=== PATIENT | male | born 1950 | race African-American/Black ===

== ENCOUNTER 2018-05-13 19:46 | Emergency (ER) | payer OTHER ==
--- NOTE | 2018-05-13 19:53 | PDOC ---
Rapid Medical Evaluation Time Seen by Provider: 05/13/18 19:51 Medical Evaluation: Allergies Allergy/AdvReac Type Severity Reaction Status Date / Time enalapril Allergy Verified 05/12/18 13:51 lisinopril Allergy Verified 05/12/18 13:51 05/13/18 19:52 I have performed a brief in-person evaluation of this patient. The patient presents with a chief complaint of: generalized weakness with diarrhea Pertinent physical exam findings: Normoactive BS. Abd SNTND. I have ordered the following: nothing The patient will proceed to the ED for further evaluation. Discharge Disposition - Diagnosis Diarrhea - Referrals - Patient Instructions - Post Discharge Activity
[2018-05-13 19:57] VITALS: BP 158/85; PULSE 72; TEMP 98.9; BMI 20.9
[2018-05-13] MEDS ORDERED: ALBUTEROL SO4 2.5/IPRATROPIUM 0.5 INH SOL 3 ML VIAL.NEB. NEB ONE (20:37)
--- NOTE | 2018-05-13 20:54 | PDOC ---
Attending Attestation - Resident Resident Name: Jim Brewer - ED Attending Attestation I have performed the following: I have examined & evaluated the patient, The case was reviewed & discussed with the resident, I agree w/resident's findings & plan, Exceptions are as noted - HPI HPI: 05/13/18 20:42 Pt c/o SOB. Seen yesterday for same. Had extensive work up and was discharged. Pt presented due to SOB because or the hot air. States now he feels better. - Physicial Exam PE: 05/13/18 20:44 *Physical Exam General Appearance: Yes: Appropriately Dressed. No: Apparent Distress, Intoxicated HEENT: positive: EOMI, MARY, Normal ENT Inspection, Normal Voice, TMs Normal, Pharynx Normal. negative: Pale Conjunctivae, Photophobia, Scleral Icterus (R), Scleral Icterus (L) Neck: positive: Trachea midline, Normal Thyroid, Supple. negative: Tender, Rigid, Carotid bruit, Stridor, Lymphadenopathy (R), Lymphadenopathy (L), Thyromegaly Respiratory/Chest: positive: scattered wheezing . negative: Chest Tender, Respiratory Distress, Accessory Muscle Use, Labored Respiration, RES, Crackles, Rales, Rhonchi, Stridor, Wheezing, Dullness Cardiovascular: positive: Regular Rhythm, Regular Rate, S1, S2. negative: Edema , JVD, Murmur, Bradycardia, Tachycardia Vascular Pulses: Dorsalis-Pedis (R): 2+, Doralis-Pedis (L): 2+ Gastrointestinal/Abdominal: positive: Normal Bowel Sounds, Flat, Soft. negative : Tender, Organomegaly, Pulsatile Mass, Increased Bowel Sounds, Decreased BS, Distended, Guarding, Rebound, Hernia, Hepatomegaly, Spleenomegaly Lymphatic: negative: Adenopathy, Tenderness Musculoskeletal: positive: Normal Inspection. negative: CVA Tenderness, Decreased Range of Motion Extremity: positive: Normal Capillary Refill, Normal Inspection, Normal Range of Motion, Pelvis Stable. negative: Tender, Pedal Edema, Swelling, Erythema Integumentary: positive: Normal Color, Dry, Warm. negative: Cyanotic, Erythema , Jaundice, Rash Neurologic: positive: section leader II-XII NML intact, Fully Oriented, Alert, Normal Mood/ Affect, Motor Strength 5/5. negative: EOM Palsy, Facial Droop, Sensory Deficit - Medical Decision Making 05/13/18 20:58 Pt was treated and released.
--- NOTE | 2018-05-13 21:04 | PDOC ---
History of Present Illness - General Chief Complaint: Diarrhea Stated Complaint: DIARRHEA Time Seen by Provider: 05/13/18 19:51 History Source: Patient Exam Limitations: No Limitations - History of Present Illness Initial Comments: 05/13/18 21:04 Patient is 68M with history of HLD and HTN here today complaining of shortness of breath that started when he walked outside this morning. He was seen in the ED yesterday, where he was evaluated with labs, cxr, and CTA. Labs were normal with the exception of a d-dimer. CTA showed no PE and no infiltrate. Patient states that his symptoms resolved immediately after he got into the "cool air". Denies chest pain, fever, chills, nausea, vomiting, cough. Patient denies leg swelling and history of blood clots. Patient is asking to go home. Denies having diarrhea. Past History - Past Medical History Allergies/Adverse Reactions: Allergies Allergy/AdvReac Type Severity Reaction Status Date / Time enalapril Allergy Verified 05/13/18 19:52 lisinopril Allergy Verified 05/13/18 19:52 Home Medications: Ambulatory Orders Albuterol Sulfate Inhaler - [Ventolin HFA Inhaler -] 1 puff IH Q6H PRN #1 inhaler 05/12/18 Ranitidine [Zantac -] 150 mg PO DAILY 30 Days #30 tablet 05/12/18 CVA: No COPD: No Dementia: No HTN: Yes Hypercholesterolemia: Yes - Immunization History Immunization Up to Date: Yes - Suicide/Smoking/Psychosocial Hx Smoking History: Current every day smoker Number of Cigarettes Smoked Daily: 5 Information on smoking cessation initiated: No 'Breaking Loose' booklet given: 05/12/18 Hx Alcohol Use: Yes (DAILY) Substance Use Type: None Review of Systems - Review of Systems Comments:: 05/13/18 21:06 GENERAL/CONSTITUTIONAL: No fever or chills. No weakness. HEAD, EYES, EARS, NOSE AND THROAT: No change in vision. No ear pain or discharge. No sore throat. CARDIOVASCULAR: No chest pain +shortness of breath RESPIRATORY: No cough, wheezing, or hemoptysis. GASTROINTESTINAL: No nausea, vomiting, diarrhea or constipation. GENITOURINARY: No dysuria, frequency, or change in urination. MUSCULOSKELETAL: No joint or muscle swelling or pain. No neck or back pain. SKIN: No rash NEUROLOGIC: No headache, vertigo, loss of consciousness, or change in strength/ sensation. ENDOCRINE: No increased thirst. No abnormal weight change HEMATOLOGIC/LYMPHATIC: No anemia, easy bleeding, or history of blood clots. ALLERGIC/IMMUNOLOGIC: No hives or skin allergy. *Physical Exam - Vital Signs Last Vital Signs Temp Pulse Resp BP Pulse Ox 98.9 F 72 16 158/85 97 05/13/18 19:53 05/13/18 19:53 05/13/18 19:53 05/13/18 19:53 05/13/18 19:53 - Physical Exam Comments: 05/13/18 21:06 GENERAL: Awake, alert, and fully oriented, in no acute distress HEAD: No signs of trauma, normocephalic, atraumatic EYES: PERRLA, EOMI, sclera anicteric, conjunctiva clear ENT: Auricles normal inspection, hearing grossly normal, nares patent, oropharynx clear without exudates. Moist mucosa NECK: Normal ROM, supple, no lymphadenopathy, JVD, or masses LUNGS: No distress, speaks full sentences, clear to auscultation bilaterally HEART: Regular rate and rhythm, normal S1 and S2, no murmurs, rubs or gallops, peripheral pulses normal and equal bilaterally. ABDOMEN: Soft, nontender, normoactive bowel sounds. No guarding, no rebound. No masses EXTREMITIES: Normal inspection, Normal range of motion, no edema. No clubbing or cyanosis. NEUROLOGICAL: Cranial nerves II through XII grossly intact. Normal speech, normal gait, no focal sensorimotor deficits SKIN: Warm, Dry, normal turgor, no rashes or lesions noted. Medical Decision Making - Medical Decision Making 05/13/18 21:06 Patient is 68M here today complaining of shortness of breath. Vital signs normal and stable. Patient's exam normal. Patient stating that he does not want to stay for further evaluation. Full medical workup 24 hours ago normal. Patient states that he has albuterol inhaler. Given return precautions. Discharged home. *DC/Admit/Observation/Transfer Diagnosis at time of Disposition: Shortness of breath - Discharge Dispostion Disposition: HOME Condition at time of disposition: Good Decision to Admit order: No - Referrals Referrals: [facility] [Provider Group] - Patient Instructions Printed Discharge Instructions: DI for Shortness of Breath Additional Instructions: Please return if you have any new, worsening or concerning symptoms. Please follow up with your primary care physician this week. - Post Discharge Activity
== END 2018-05-13 21:13 | disposition home or self-care (01) ==
LOC: JER 19:46
DX: R06.02 Shortness of breath (principal); I10 Essential (primary) hypertension; E78.5 Hyperlipidemia, unspecified; F17.210 Nicotine dependence, cigarettes, uncomplicated
CPT/HCPCS: 99281-25; 99282-25

== ENCOUNTER 2018-06-29 01:47 | Emergency (ER) | payer OTHER ==
[2018-06-29 02:05] VITALS: BMI 20.7
--- NOTE | 2018-06-29 03:54 | PDOC ---
History of Present Illness <Bogdan Robert - Last Filed: 06/29/18 05:46> - General History Source: Patient Exam Limitations: No Limitations - History of Present Illness Initial Comments: 06/29/18 03:48 This is a 68 YOM with h/o COPD (has rescue albuterol MDI he rarely uses), A-fib (on Eliquis and Cardizem), HTN, alcohol use (states 2 oz liquor every night to help him sleep), and asthma (in childhood) who p/w worsening intermittent generalized weakness, varying day-to-day, for the past few months. He additionally notes SOB which is worse than his normal baseline, worse with any exertion. He notes needing to take a taxi up the hill to his house instead of walking. He is followed by his PCP and had a recent visit. He has a follow-up visit on 07/16 but is concerned because he has run out of some home medications. He notes hot flashes and difficulty regulating his body temperature (he tends to run hot and needs to aim a fan at his face to cool off) . He otherwise denies f/c/n/v/d/c, chest pain, abdominal pain, n/t, headache, dizziness, lightheadedness, and other symptoms. <ShahrzadZina - Last Filed: 06/29/18 05:58> - General Chief Complaint: Weakness Stated Complaint: GENERALIZED WEAKNESS Time Seen by Provider: 06/29/18 03:29 Past History <Bogdan Robert - Last Filed: 06/29/18 05:46> - Past Medical History CVA: No COPD: No Dementia: No HTN: Yes Hypercholesterolemia: Yes - Immunization History Immunization Up to Date: Yes - Suicide/Smoking/Psychosocial Hx Smoking History: Unknown if ever smoked Have you smoked in the past 12 months: No Number of Cigarettes Smoked Daily: 4 Information on smoking cessation initiated: No 'Breaking Loose' booklet given: 05/12/18 Hx Alcohol Use: No Drug/Substance Use Hx: No Substance Use Type: Alcohol Hx Substance Use Treatment: No <MarkhamZina - Last Filed: 06/29/18 05:58> - Past Medical History Allergies/Adverse Reactions: Allergies Allergy/AdvReac Type Severity Reaction Status Date / Time enalapril Allergy Verified 06/29/18 02:04 lisinopril Allergy Verified 06/29/18 02:04 Home Medications: Ambulatory Orders Albuterol Sulfate Inhaler - [Ventolin HFA Inhaler -] 1 puff QID 05/28/18 Ranitidine [Zantac -] 150 mg PO DAILY 05/28/18 Vitamin B-12 1,000 mg PO DAILY 05/28/18 Apixaban [Eliquis -] 5 mg PO BID #60 tablet 06/29/18 Diltiazem Cd [Cardizem Cd -] 240 mg PO DAILY #30 cap.cd.24h 06/29/18 Review of Systems - Review of Systems Able to Perform ROS?: Yes Constitutional: Yes: Weakness, Other (hot flashes). No: Chills, Fever, Loss of Appetite, Malaise, Night Sweats, Unexplained wgt Loss HEENTM: No: Nose Congestion, Throat Pain Respiratory: Yes: Shortness of Breath. No: Cough Cardiac (ROS): No: Chest Pain, Palpitations ABD/GI: No: Constipated, Diarrhea, Nausea, Vomiting : No: Burning, Dysuria Musculoskeletal: No: Back Pain, Neck Pain Integumentary: No: Bruising, Rash Neurological: No: Headache, Numbness, Tingling, Weakness, Dizziness Endocrine: No: Unexplained Weight Gain, Unexplained Weight Loss <Zina Markham - Last Filed: 06/29/18 05:58> *Physical Exam - Vital Signs Last Vital Signs Temp Pulse Resp BP Pulse Ox 98.1 F 96 H 20 168/104 H 95 06/29/18 02:04 06/29/18 02:04 06/29/18 02:04 06/29/18 02:04 06/29/18 02:04 <Bogdan Robert - Last Filed: 06/29/18 05:46> - Vital Signs Last Vital Signs Temp Pulse Resp BP Pulse Ox 98.1 F 96 H 20 168/104 H 95 06/29/18 02:04 06/29/18 02:04 06/29/18 02:04 06/29/18 02:04 06/29/18 02:04 06/29/18 03:56 GENERAL: nontoxic and well-appearing, nourished, A/Ox4, no acute distress, speaking in full sentences, answers questions appropriately, very pleasant, odor of alcohol is present, but does not appear intoxicated and no slurred speech, poor dentition HEENT: PERRLA, EOMI, moist mucous membranes, no posterior pharyngeal erythema, no tonsillar swelling or exudates, no cervical lymphadenopathy NECK: No midline ttp, no spinal stepoff or deformity, full ROM, supple CARDIOVASCULAR: Regular rate and rhythm, normal S1S2, MGR, radial and DP pulses 2+ and symmetric, capillary refill <2 seconds, extremities warm and well- perfused Chest wall: Normal appearance, no rash, no bruising, no costal stepoff or deformity, nontender to compression LUNGS/RESPIRATORY: No respiratory distress, normal and symmetric chest movements during respirations, on auscultation lungs are diffusely wheezy, but equal breath sounds, no cyanosis, no nail clubbing GI/ABDOMEN: Normal symmetric appearance, normoactive bowel sounds, soft, no tenderness to palpation, no midline pulsatile masses, no palpated organomegaly BACK: No midline ttp or stepoff or deformity of thoracic or lumbar spine EXTREMITIES: distal pulses 2+, warm and well-perfused, no LE edema SKIN: Warm and dry, no pallor, no jaundice, no bruising, no rash, no skin breakdown, no cuts, no lesions NEUROLOGICAL: GCS 15, CN II-XII grossly intact, ambulating with normal gait, moving all extremities, 5/5 strength proximally and distally, no facial droop, no decreased sensation <MarkhamZina - Last Filed: 06/29/18 05:58> Heart Score/ECG Review #1 06/29/18 04:16 Sinus tachycardia, rate 101, right atrial enlargement, normal axis, prolonged KCa=189, no ischemic ST-T changes. <ShahrzadZina - Last Filed: 06/29/18 05:58> ED Treatment Course - LABORATORY CBC & Chemistry Diagram: 06/29/18 04:51 06/29/18 04:51 - ADDITIONAL ORDERS Additional order review: Laboratory Results 06/29/18 06/29/18 06/29/18 04:51 04:51 04:51 PT with INR 13.80 H INR 1.17 H Sodium 138 Potassium 3.3 L Chloride 108 H Carbon Dioxide 30 Anion Gap 1 L BUN 12 Creatinine 0.8 Creat Clearance w eGFR > 60 Random Glucose 126 H Calcium 8.7 Phosphorus 3.1 Magnesium 1.7 L Total Bilirubin 0.5 AST 110 H ALT 48 Alkaline Phosphatase 70 Creatine Kinase 126 Troponin I < 0.02 B-Natriuretic Peptide 96.7 Total Protein 6.7 Albumin 3.9 TSH 0.60 D 06/29/18 04:51 RBC 3.68 L MCV 103.0 H MCHC 33.9 RDW 18.2 H MPV 7.7 D Neutrophils % 46.2 D Lymphocytes % 44.7 H D Monocytes % 7.5 Eosinophils % 0.8 D Basophils % 0.8 D - Medications Given in the ED: ED Medications Discontinued Medications Generic Name Dose Route Start Last Admin Trade Name Freq PRN Reason Stop Dose Admin Albuterol/Ipratropium 2 amp 06/29/18 03:59 06/29/18 04:02 Dugonzález - NEB 06/29/18 04:00 2 amp ONCE ONE Administration <Dominick Robertan - Last Filed: 06/29/18 05:46> - LABORATORY CBC & Chemistry Diagram: 06/29/18 04:51 06/29/18 04:51 - RADIOLOGY Radiology Studies Ordered: Category Date Time Status CHEST PA & LAT [RAD] Stat Radiology 06/29/18 03:46 Ordered <Zina Markham - Last Filed: 06/29/18 05:58> Medical Decision Making - Medical Decision Making 06/29/18 04:35 Adult male patient p/w intermittent subacute/chronic generalized weakness, hot flashes, SOB. Initial Vital Signs Temp Pulse Resp BP Pulse Ox 98.1 F 96 H 20 168/104 H 95 06/29/18 02:04 06/29/18 02:04 06/29/18 02:04 06/29/18 02:04 06/29/18 02:04 Exam: As noted in Physical Exam section. DDX IBNLT: Hypothyroidism, CHF exacerbation, COPD, cardiomyopathy, ACS, arrhythmia, electrolyte derangement, EtOH use disorder, depression, PNA, UTI, other infection, etc W/U ordered: Labs as noted below, EKG, CXR TX ordered: Katharina EKG: Reviewed; results as noted in ECG Review section. CXR: Nothing acute Laboratory Tests 06/29/18 06/29/18 06/29/18 04:51 04:51 04:51 WBC 7.5 RBC 3.68 L Hgb 12.8 Hct 37.9 MCV 103.0 H MCH 34.9 H MCHC 33.9 RDW 18.2 H Plt Count 217 D MPV 7.7 D Absolute Neuts (auto) 3.5 Neutrophils % 46.2 D Lymphocytes % 44.7 H D Monocytes % 7.5 Eosinophils % 0.8 D Basophils % 0.8 D Nucleated RBC % 0 PT with INR 13.80 H INR 1.17 H Sodium 138 Potassium 3.3 L Chloride 108 H Carbon Dioxide 30 Anion Gap 1 L BUN 12 Creatinine 0.8 Creat Clearance w eGFR > 60 Random Glucose 126 H Calcium 8.7 Phosphorus 3.1 Magnesium 1.7 L Total Bilirubin 0.5 AST 110 H ALT 48 Alkaline Phosphatase 70 Creatine Kinase Troponin I B-Natriuretic Peptide Total Protein 6.7 Albumin 3.9 TSH 06/29/18 04:51 WBC RBC Hgb Hct MCV MCH MCHC RDW Plt Count MPV Absolute Neuts (auto) Neutrophils % Lymphocytes % Monocytes % Eosinophils % Basophils % Nucleated RBC % PT with INR INR Sodium Potassium Chloride Carbon Dioxide Anion Gap BUN Creatinine Creat Clearance w eGFR Random Glucose Calcium Phosphorus Magnesium Total Bilirubin AST ALT Alkaline Phosphatase Creatine Kinase 126 Troponin I < 0.02 B-Natriuretic Peptide 96.7 Total Protein Albumin TSH 0.60 D Reassessment: Patient states feels well, wants to go home, repeat exam benign. Repeat BP is 176/111. Patient states he always has this when in the ED when he is nervous. States he is a bit nervous now. Also notes he just smoked a cigarette. He is counseled on the importance of taking his home meds. E-Rx has been sent by Dr. Robert for his home meds that he is running low on. This patient has gotten significant relief of symptoms while in the ED. On last reassessment, vitals are wnl, pain is reasonably controlled, and exam is benign. Workup is not concerning for emergency-level pathology at this time. This patient is appropriate for discharge with close outpatient follow up. They are comfortable with this plan and will follow up with their primary care provider in 1-3 days. Specific return precautions are discussed and they will come back to the ER if necessary. <Zina Markham - Last Filed: 06/29/18 05:58> *DC/Admit/Observation/Transfer <Bogdan Robert - Last Filed: 06/29/18 05:46> - Discharge Dispostion Decision to Admit order: No <Zina Markham - Last Filed: 06/29/18 05:58> Diagnosis at time of Disposition: Prolonged Q-T interval on ECG, Generalized weakness, Hypokalemia HTN (hypertension) Qualifiers: Hypertension type: unspecified Qualified Code(s): I10 - Essential (primary) hypertension - Discharge Dispostion Condition at time of disposition: Stable - Prescriptions Prescriptions: Apixaban [Eliquis -] 5 mg PO BID #60 tablet Diltiazem Cd [Cardizem Cd -] 240 mg PO DAILY #30 cap.cd.24h - Patient Instructions Printed Discharge Instructions: DI for Fatigue Additional Instructions: YOU WERE SEEN IN THE ER FOR GENERALIZED WEAKNESS, SHORTNESS OF BREATH ON EXERTION, AND HOT FLASHES. WE DID AN EXAM, LAB WORK, AND AN ELECTROCARDIOGRAM. AFTER OUR ASSESSMENT, WE DO NOT BELIEVE YOU ARE HAVING A MEDICAL EMERGENCY AT THIS TIME, AND WE BELIEVE YOU ARE SAFE TO GO HOME. PLEASE FOLLOW UP WITH YOUR PRIMARY CARE PROVIDER IN 1-3 DAYS. CALL THEIR CLINIC, TELL THEM YOU WERE SEEN IN THE ER, AND TELL THEM YOU NEED A FOLLOW-UP. IF YOU HAVE ANY NEW OR WORSENING SYMPTOMS, PLEASE COME BACK TO THE ER AT ANY TIME (24 HOURS A DAY). IF YOU ARE HAVING SEVERE OR LIFE THREATENING SYMPTOMS, OR SYMPTOMS THAT MAKE IT UNSAFE TO DRIVE OR HAVE SOMEONE DRIVE YOU, PLEASE CALL 911. Print Language: CAMEROONIAN
[2018-06-29] MEDS ORDERED: ALBUTEROL SO4 2.5/IPRATROPIUM 0.5 INH SOL 3 ML VIAL.NEB. NEB ONE (03:59)
[2018-06-29 05:07] LABS: BASO % 0.8 % (0-2.0); EOS % 0.8 % (0-4.5); HEMATOCRIT 37.9 % (35.4-49); HEMOGLOBIN 12.8 GM/dL (11.7-16.9); LYMPH % 44.7 % (8-40); MCH 34.9 pg (25.7-33.7); MCHC 33.9 g/dl (32.0-35.9); MEAN PLT VOLUME 7.7 fl (7.5-11.1); MONO % 7.5 % (3.8-10.2); NEUT % 46.2 % (42.8-82.8); PLATELET COUNT 217 K/MM3 (134-434); RBC 3.68 M/mm3 (4.00-5.60); RDW 18.2 % (11.9-15.9); WHITE BLOOD COUNT 7.5 K/mm3 (4.0-10.0)
--- NOTE | 2018-06-29 05:09 | PDOC ---
Attending Attestation - Resident Resident Name: ShahrzadZina - ED Attending Attestation I have performed the following: I have examined & evaluated the patient, The case was reviewed & discussed with the resident, I agree w/resident's findings & plan, Exceptions are as noted - HPI HPI: 06/29/18 05:03 68y M copd, afib (on eliquis, cardizem), htn, chronic etoh presents with worsening genrealized weakness and feeling worn out today. notes that he feels lke this occasionally but today is worse than usual. Pt denies any pain including cp, abd pain, back pain, headache, fever/chills, cough, n/v, diarrhea , dysuria, leg swelling. pt also notes he is running low on meds that he was d/ c with including the eliquis and the dilitazem. on exam pt in no distress card rrr w/o mrg pulm slight wheez b/l, no rales abd: soft nontender ext: no edema will obtain blood work to ro anemia, metabolic dernagement, ekg shows nsr will refill the pts meds pt has appt for later this morth with his pmd - Medical Decision Making 06/29/18 05:46 labs reviewed noted for mild hypoakelemia not anemic will refill his eliquis/dilitazem will dc the pt with pmd fu return precautions were discussed Heart Score/ECG Review - ECG Impressions Comment:: 06/29/18 05:37 Twelve-lead EKG was performed and reviewed by me. There is normal sinus rhythm Rate of 101 The axis is normal. The intervals are normal. abnormal r wave progression
[2018-06-29 05:17] LABS: INR 1.17 (0.83-1.09); PROTHROMBIN TIME (PATIENT) 13.8 SEC (9.7-13.0)
[2018-06-29 05:29] LABS: ALBUMIN 3.9 g/dl (3.4-5.0); ALK PHOS 70 U/L (45-117); ANION GAP 1 MMOL/L (8-16); BILIRUBIN,TOTAL 0.5 mg/dL (0.2-1); BLOOD UREA NITROGEN 12 mg/dL (7-18); CALCIUM 8.7 mg/dL (8.5-10.1); CHLORIDE 108 mmol/L (98-107); CO2 30 mmol/L (21-32); CREATININE 0.8 mg/dL (0.55-1.3); GLUCOSE,RANDOM 126 mg/dL (74-106); MAGNESIUM 1.7 mg/dL (1.8-2.4); PHOSPHOROUS 3.1 mg/dL (2.5-4.9); POTASSIUM 3.3 mmol/L (3.5-5.1); SGOT/AST 110 U/L (15-37); SGPT/ALT 48 U/L (13-61); SODIUM 138 mmol/L (136-145); TOT PROT 6.7 g/dl (6.4-8.2)
[2018-06-29 05:35] LABS: N-TERMINAL BNP 96.7 pg/ml (5-125)
[2018-06-29] MEDS ORDERED: POTASSIUM CHLORIDE TABS 20 MEQ TABLET.ER (FP) PO ONE ×2 (05:43→05:48)
[2018-06-29 06:15] VITALS: BP 176/111; PULSE 86; TEMP 98.3
--- NOTE | 2018-06-29 10:32 | EKG ---
Test Reason : Blood Pressure : / mmHG Vent. Rate : 101 BPM Atrial Rate : 101 BPM P-R Int : 166 ms QRS Dur : 102 ms QT Int : 398 ms P-R-T Axes : 070 023 066 degrees QTc Int : 516 ms SINUS TACHYCARDIA POSSIBLE LEFT ATRIAL ENLARGEMENT BORDERLINE ECG WHEN COMPARED WITH ECG OF 27-MAY-2018 21:59, SINUS RHYTHM HAS REPLACED ATRIAL FIBRILLATION Confirmed by ISAÍAS PLATA MD ([id number]) on 06/29/2018 10:32:05 AM Referred By: Confirmed By:ISAÍAS PLATA MD
== END 2018-06-29 06:15 | disposition home or self-care (01) ==
LOC: JER 01:47
PROC: 3E0F7GC Introduction of Other Therapeutic Substance into Respiratory Tract, Via Natural or Artificial Opening (ICD-10-PCS; principal; 2018-06-29)
DX: I10 Essential (primary) hypertension (principal); I45.81 Long QT syndrome; E87.6 Hypokalemia; I48.91 Unspecified atrial fibrillation; Z79.01 Long term (current) use of anticoagulants; J44.9 Chronic obstructive pulmonary disease, unspecified; Z72.89 Other problems related to lifestyle
CPT/HCPCS: 36415; 71046-TC-FY; 80053; 82550; 83735; 83880; 84100; 84443; 84484; 85025; 85610; 93005; 93010; 94640; 99283-25; J7620

== ENCOUNTER 2018-07-06 03:05 | Emergency (ER) | payer OTHER ==
[2018-07-06 03:36] VITALS: TEMP 97.7; BMI 20.9
[2018-07-06 04:07] LABS: BASO % 0.4 % (0-2.0); EOS % 1.2 % (0-4.5); HEMATOCRIT 35.3 % (35.4-49); LYMPH % 41.9 % (8-40); MEAN PLT VOLUME 8.6 fl (7.5-11.1); MONO % 7.4 % (3.8-10.2); NEUT % 49.1 % (42.8-82.8); PLATELET COUNT 191 K/MM3 (134-434); RBC 3.34 M/mm3 (4.00-5.60); RDW 18.1 % (11.9-15.9)
[2018-07-06 04:30] LABS: ALBUMIN 3.6 g/dl (3.4-5.0); ALK PHOS 75 U/L (45-117); ANION GAP 9 MMOL/L (8-16); BILIRUBIN,TOTAL 0.3 mg/dL (0.2-1); BLOOD UREA NITROGEN 12 mg/dL (7-18); CALCIUM 8.2 mg/dL (8.5-10.1); CHLORIDE 106 mmol/L (98-107); CO2 27 mmol/L (21-32); CREATININE 0.9 mg/dL (0.55-1.3); GLUCOSE,RANDOM 120 mg/dL (74-106); POTASSIUM 3.2 mmol/L (3.5-5.1); SGOT/AST 119 U/L (15-37); SGPT/ALT 48 U/L (13-61); SODIUM 143 mmol/L (136-145); TOT PROT 6.3 g/dl (6.4-8.2)
--- NOTE | 2018-07-06 04:50 | PDOC ---
History of Present Illness - General Chief Complaint: Alcohol intoxication Stated Complaint: INTOX Time Seen by Provider: 07/06/18 03:24 History Source: Patient Exam Limitations: No Limitations - History of Present Illness Initial Comments: 07/06/18 04:40 Patient is a 68-year-old male with history of hypertension, alcohol abuse here requesting detox. Patient is states he has been drinking x 50 year 1 pint of vodka a day. States for the past 5 years he has requiring a drank as soon as he get up. Last detox was 4 years ago. States that the he does not want to keep drinking but everytime he tries to stop he gets the shakes. He drank 1 hour prior to presentation. Denies any nausea, vomiting, tremors, hallucinations, sweating. PMD: PMHX: as above PSOCHX: neg drug, (+) etoh, neg cig ALL: Enalapril, lisinopril GENERAL/CONSTITUTIONAL HEAD, EYES, EARS, NOSE AND THROAT: [No change in vision. No ear pain or discharge. No sore throat.] CARDIOVASCULAR: [No chest pain or shortness of breath.] RESPIRATORY: [No cough, wheezing, or hemoptysis.] GASTROINTESTINAL: [No nausea, vomiting, diarrhea or constipation. No rectal bleeding.] GENITOURINARY: [No dysuria, frequency, or change in urination.] MUSCULOSKELETAL: [No joint or muscle swelling or pain. No neck or back pain.] SKIN AND BREASTS: [No rash or easy bruising.] NEUROLOGIC: [No headache, vertigo, loss of consciousness, or loss of sensation.] PSYCHIATRIC: [No depression or anxiety.] ENDOCRINE: [No increased thirst. No abnormal weight change.] HEMATOLOGIC/LYMPHATIC: [No anemia, easy bleeding, or history of blood clots.] ALLERGIC/IMMUNOLOGIC: [No hives or skin allergy. No latex allergy.] GENERAL: [The patient is awake, alert, and fully oriented, in no acute distress. ] HEAD: [Normal with no signs of trauma.] EYES: [Pupils equal, round and reactive to light, extraocular movements intact, sclera anicteric, conjunctiva clear.] ENT: [Ears normal, nares patent, oropharynx clear without exudates. Moist mucous membranes.] NECK: [Normal range of motion, supple without lymphadenopathy, JVD, or masses.] LUNGS: [Breath sounds equal, clear to auscultation bilaterally. No wheezes, and no crackles.] HEART: [Regular rate and rhythm, normal S1 and S2 without murmur, rub.] ABDOMEN: [Soft, nontender, normoactive bowel sounds. No guarding, no rebound. No masses.] EXTREMITIES: [Normal range of motion, no edema. No clubbing or cyanosis. No cords, erythema, or tenderness.] NEUROLOGICAL: [Cranial nerves II through XII grossly intact. Normal speech, normal gait.] PSYCH: [Normal mood, normal affect.] SKIN: [Warm, Dry, normal turgor, no rashes or lesions noted.] Past History - Past Medical History Allergies/Adverse Reactions: Allergies Allergy/AdvReac Type Severity Reaction Status Date / Time enalapril Allergy Verified 07/06/18 03:30 lisinopril Allergy Verified 07/06/18 03:30 Home Medications: Ambulatory Orders Albuterol Sulfate Inhaler - [Ventolin HFA Inhaler -] 1 puff QID 05/28/18 Ranitidine [Zantac -] 150 mg PO DAILY 05/28/18 Vitamin B-12 1,000 mg PO DAILY 05/28/18 Apixaban [Eliquis -] 5 mg PO BID #60 tablet 06/29/18 Diltiazem Cd [Cardizem Cd -] 240 mg PO DAILY #30 cap.cd.24h 06/29/18 CVA: No COPD: No Dementia: No HTN: Yes Hypercholesterolemia: Yes - Immunization History Immunization Up to Date: Yes - Suicide/Smoking/Psychosocial Hx Smoking History: Never smoked Have you smoked in the past 12 months: No Number of Cigarettes Smoked Daily: 4 Information on smoking cessation initiated: No 'Breaking Loose' booklet given: 05/12/18 Hx Alcohol Use: No Drug/Substance Use Hx: No Substance Use Type: Alcohol Hx Substance Use Treatment: No *Physical Exam - Vital Signs Last Vital Signs Temp Pulse Resp BP Pulse Ox 97.7 F 110 H 22 H 143/91 97 07/06/18 03:05 07/06/18 03:05 07/06/18 03:05 07/06/18 03:05 07/06/18 03:05 ED Treatment Course - LABORATORY CBC & Chemistry Diagram: 07/06/18 03:50 07/06/18 03:50 - ADDITIONAL ORDERS Additional order review: Laboratory Results 07/06/18 03:50 Sodium 143 Potassium 3.2 L Chloride 106 Carbon Dioxide 27 Anion Gap 9 BUN 12 Creatinine 0.9 Creat Clearance w eGFR > 60 Random Glucose 120 H Calcium 8.2 L Total Bilirubin 0.3 AST 119 H ALT 48 Alkaline Phosphatase 75 Total Protein 6.3 L Albumin 3.6 07/06/18 03:50 RBC 3.34 L MCV 106.0 H MCHC 34.0 RDW 18.1 H MPV 8.6 D Neutrophils % 49.1 Lymphocytes % 41.9 H Monocytes % 7.4 Eosinophils % 1.2 Basophils % 0.4 Medical Decision Making - Medical Decision Making 07/06/18 04:40 Patient is a 68-year-old male with history of hypertension, alcohol abuse here requesting detox. Patient is states he has been drinking x 50 year 1 pint of vodka a day. called Detox no beds currently will be available at 8am labs re-eval 07/06/18 06:49 Labs revealed noted a potassium of 3.2 replaced with potassium 40meq by mouth. EtOH level 287 Endorsed to AM team pending disposition and call to [facility]. *DC/Admit/Observation/Transfer Diagnosis at time of Disposition: Alcohol abuse - Discharge Dispostion Condition at time of disposition: Stable - Referrals Referrals: ON STAFF,NOT [Primary Care Provider] - - Patient Instructions - Post Discharge Activity
[2018-07-06] MEDS ORDERED: POTASSIUM CHLORIDE ORAL LIQUID 20 MEQ/15 ML PO ONE (04:52)
[2018-07-06 05:16] LABS: MACROCYTOSIS 2+
[2018-07-06] MEDS ORDERED: POTASSIUM CHLORIDE ORAL LIQUID 20 MEQ/15 ML ONE (06:59)
[2018-07-06 07:06] LABS: COCAINE, UR NEGATIVE ng/ml (CUTOFF=300); METHADONE, UR NEGATIVE ng/ml (CUTOFF=300); OPIATES, URI NEGATIVE ng/ml (CUTOFF=300); PHENCYCLIDINE,URINE NEGATIVE ng/ml (CUTOFF=25); URINE AMPHETAMINES NEGATIVE ng/ml (CUTOFF=500); URINE BARBITURATES NEGATIVE ng/ml (CUTOFF=200); URINE BENZODIAZEPINES NEGATIVE ng/ml (CUTOFF=200)
[2018-07-06] MEDS ORDERED: LORazepam 1 MG TABLET PO ONE (07:43)
[2018-07-06] MEDS ORDERED: ALBUTEROL SO4 2.5/IPRATROPIUM 0.5 INH SOL 3 ML VIAL.NEB. NEB ONE ×2 (07:45→08:19)
--- NOTE | 2018-07-06 07:48 | PDOC ---
*Physical Exam - Vital Signs Last Vital Signs Temp Pulse Resp BP Pulse Ox 97.7 F 110 H 22 H 143/91 97 07/06/18 03:05 07/06/18 03:05 07/06/18 03:05 07/06/18 03:05 07/06/18 03:05 - Physical Exam General Appearance: Yes: Nourished Neck: positive: Trachea midline Respiratory/Chest: positive: Lungs Clear, Normal Breath Sounds, Other Cardiovascular: positive: Regular Rate, S1, S2 Extremity: positive: Normal Capillary Refill Integumentary: positive: Normal Color, Dry, Warm Neurologic: positive: Fully Oriented, Alert, Normal Mood/Affect, Other (gait normal. speech clear) ED Treatment Course - LABORATORY CBC & Chemistry Diagram: 07/06/18 03:50 07/06/18 03:50 - ADDITIONAL ORDERS Additional order review: Laboratory Results 07/06/18 07/06/18 07/06/18 06:03 05:30 03:50 Sodium 143 Potassium 3.2 L Chloride 106 Carbon Dioxide 27 Anion Gap 9 BUN 12 Creatinine 0.9 Creat Clearance w eGFR > 60 Random Glucose 120 H Calcium 8.2 L Total Bilirubin 0.3 AST 119 H ALT 48 Alkaline Phosphatase 75 Total Protein 6.3 L Albumin 3.6 Opiates Screen Negative Methadone Screen Negative Barbiturate Screen Negative Phencyclidine Screen Negative Ur Amphetamines Screen Negative MDMA (Ecstasy) Screen Negative Benzodiazepines Screen Negative Cocaine Screen Negative U Marijuana (THC) Screen Negative Alcohol, Quantitative 287.4 H 07/06/18 03:50 RBC 3.34 L MCV 106.0 H MCHC 34.0 RDW 18.1 H MPV 8.6 D Neutrophils % 49.1 Lymphocytes % 41.9 H Monocytes % 7.4 Eosinophils % 1.2 Basophils % 0.4 - Medications Given in the ED: ED Medications Discontinued Medications Generic Name Dose Route Start Last Admin Trade Name Freq PRN Reason Stop Dose Admin Potassium Chloride 40 meq 07/06/18 04:52 07/06/18 07:00 Potassium Chloride Oral Liquid PO 07/06/18 04:53 40 meq ONCE ONE Administration Medical Decision Making - Medical Decision Making 07/06/18 07:46 68 yo male h/ etoh abuse here with concerns for intox, requesting detox. states last drink was 3 pm day prior. no h/o dt's or withdrawal seizure, does get withdrawal tremors. was here overnight awaiting possible bed at [facility] for detox . on exam awake alert lungs clear, heart rrr nomrg. abd soft nt. ext wwp.speech clear. gait steady. no current tremors. pt awaiting possible detox, will call [facility] at 8 am. *DC/Admit/Observation/Transfer Diagnosis at time of Disposition: Alcohol abuse - Discharge Dispostion Condition at time of disposition: Stable - Referrals Referrals: ON STAFF,NOT [Primary Care Provider] - - Patient Instructions - Post Discharge Activity
[2018-07-06] MEDS ORDERED: LORazepam 0.5 MG TABLET ONE (08:19)
--- NOTE | 2018-07-06 09:26 | PDOC ---
*Physical Exam - Vital Signs Last Vital Signs Temp Pulse Resp BP Pulse Ox 97.7 F 110 H 22 H 143/91 97 07/06/18 03:05 07/06/18 03:05 07/06/18 03:05 07/06/18 03:05 07/06/18 03:05 - Physical Exam General Appearance: Yes: Nourished, Appropriately Dressed, Thin HEENT: positive: EOMI, MARY Respiratory/Chest: positive: Lungs Clear, Normal Breath Sounds, Rhonchi (mild scattered rhonchi). negative: Crackles, Wheezing Cardiovascular: positive: Regular Rhythm, Regular Rate Gastrointestinal/Abdominal: positive: Normal Bowel Sounds, Soft Musculoskeletal: positive: Normal Inspection Extremity: positive: Normal Capillary Refill, Normal Inspection, Normal Range of Motion Integumentary: positive: Normal Color, Dry, Warm Neurologic: positive: Fully Oriented, Alert, Normal Mood/Affect, Normal Response , Motor Strength 5/5, Other (steady gait no ataxia) ED Treatment Course - LABORATORY CBC & Chemistry Diagram: 07/06/18 03:50 07/06/18 03:50 - ADDITIONAL ORDERS Additional order review: Laboratory Results 07/06/18 07/06/18 07/06/18 06:03 05:30 03:50 Sodium 143 Potassium 3.2 L Chloride 106 Carbon Dioxide 27 Anion Gap 9 BUN 12 Creatinine 0.9 Creat Clearance w eGFR > 60 Random Glucose 120 H Calcium 8.2 L Total Bilirubin 0.3 AST 119 H ALT 48 Alkaline Phosphatase 75 Total Protein 6.3 L Albumin 3.6 Opiates Screen Negative Methadone Screen Negative Barbiturate Screen Negative Phencyclidine Screen Negative Ur Amphetamines Screen Negative MDMA (Ecstasy) Screen Negative Benzodiazepines Screen Negative Cocaine Screen Negative U Marijuana (THC) Screen Negative Alcohol, Quantitative 287.4 H 07/06/18 03:50 RBC 3.34 L MCV 106.0 H MCHC 34.0 RDW 18.1 H MPV 8.6 D Neutrophils % 49.1 Lymphocytes % 41.9 H Monocytes % 7.4 Eosinophils % 1.2 Basophils % 0.4 - Medications Given in the ED: ED Medications Discontinued Medications Generic Name Dose Route Start Last Admin Trade Name Freq PRN Reason Stop Dose Admin Albuterol/Ipratropium 1 amp 07/06/18 07:45 07/06/18 08:20 Duoneb - NEB 07/06/18 07:46 1 amp ONCE ONE Administration Lorazepam 1 mg 07/06/18 07:43 07/06/18 08:20 Ativan - PO 07/06/18 07:44 1 mg ONCE ONE Administration Potassium Chloride 40 meq 07/06/18 04:52 07/06/18 07:00 Potassium Chloride Oral Liquid PO 07/06/18 04:53 40 meq ONCE ONE Administration Medical Decision Making - Medical Decision Making 07/06/18 09:24 cc: ETOH intox requesting detox at 7am pt is not clinically intox, has clear speech, steady gait to the bathroom pt aware of plan to attempt to get bed at detox 2 [facility], will call at 8am. pt given breakfast tray and ativan 1mg, duoneb pt seen at bedside by 8am- pt not in bed, not found in ER called 2 [facility] and left message x2 with the intake doctor awaiting call back called pt on his cell- states he left he thought he was discharge pt is not coming back to the ER verbal dc inst given over the telephone 07/06/18 09:27 *DC/Admit/Observation/Transfer Diagnosis at time of Disposition: Alcohol abuse - Discharge Dispostion Disposition: ELOPED Condition at time of disposition: Stable - Referrals Referrals: ON STAFF,NOT [Primary Care Provider] - - Patient Instructions - Post Discharge Activity
[2018-07-06 10:13] VITALS: BP 139/89; PULSE 106
== END 2018-07-06 09:30 | disposition left against medical advice (07) ==
LOC: JER 03:05
PROC: 3E0F7GC Introduction of Other Therapeutic Substance into Respiratory Tract, Via Natural or Artificial Opening (ICD-10-PCS; principal; 2018-07-06)
DX: F10.220 Alcohol dependence with intoxication, uncomplicated (principal); Y90.8 Blood alcohol level of 240 mg/100 ml or more; I10 Essential (primary) hypertension; E78.00 Pure hypercholesterolemia, unspecified
CPT/HCPCS: 36415; 80053; 80307; 85025; 94640; 99283-25

== ENCOUNTER 2018-08-03 11:36 | Emergency (ER) | payer OTHER ==
[2018-08-03] MEDS ORDERED: FOLIC ACID 1 MG TABLET (FP) PO ONE (13:00)
[2018-08-03] MEDS ORDERED: MULTIVITAMINS (DAILY MVI) TABLET (FP) PO ONE (13:00)
[2018-08-03] MEDS ORDERED: THIAMINE HCL 100 MG TABLET (FP) PO ONE (13:00)
[2018-08-03] MEDS ORDERED: SODIUM CHLORIDE 1,000 ML IV STA (13:00)
--- NOTE | 2018-08-03 13:08 | PDOC ---
History of Present Illness - General Chief Complaint: Alcohol intoxication Stated Complaint: Alcohol intoxication Time Seen by Provider: 08/03/18 12:10 History Source: Patient Exam Limitations: No Limitations - History of Present Illness Initial Comments: 08/03/18 13:20 Mr. Yao is a 68 yo M with a hx of alcohol abuse (last detox 4 years ago) and HTN who presents to the emergency department requesting for alcohol detox and admission to [facility]. Per the patient, last drink was 7 am this morning (3 ounces of vodka). He consumed 8 ounces of vodka overl ast 24 hours and usually drinks 2.5 pints of vodka per week. He has been abusing alcohol for "many years ". He states he wants to get off alcohol because "I see myself deteriorating". The patient denies tremors, hallucinations, nausea, vomiting, anxiousness, pain , and hx of withdrawals/DTs. Pmhx: Refer to above Shx: None Meds: eliquis (doesnt know why he is on it), cardizem Allergies: NKDA Social: denies tobacco and drug use. endorses alcohol Past History - Past Medical History Allergies/Adverse Reactions: Allergies Allergy/AdvReac Type Severity Reaction Status Date / Time enalapril Allergy Verified 07/06/18 03:30 lisinopril Allergy Verified 07/06/18 03:30 Home Medications: Ambulatory Orders Albuterol Sulfate Inhaler - [Ventolin HFA Inhaler -] 1 puff QID 05/28/18 Ranitidine [Zantac -] 150 mg PO DAILY 05/28/18 Vitamin B-12 1,000 mg PO DAILY 05/28/18 Apixaban [Eliquis -] 5 mg PO BID #60 tablet 06/29/18 Diltiazem Cd [Cardizem Cd -] 240 mg PO DAILY #30 cap.cd.24h 06/29/18 Anemia: No Asthma: No Cancer: No Cardiac Disorders: Yes (htn) CVA: No COPD: No CHF: No DVT: No (taking blood thinners) Dementia: No Diabetes: No Dialysis: No GI Disorders: No Disorders: No HTN: Yes Hypercholesterolemia: Yes Kidney Stones: No Liver Disease: No Psychiatric Problems: Yes (substance abuse) Seizures: No Thyroid Disease: No Lung CA: No - Surgical History Abdominal Surgery: No Appendectomy: No Cardiac Surgery: No Cholecystectomy: No Gastric Stapling: No GI Surgery: No Lung Surgery: No Neurologic Surgery: No - Immunization History Immunization Up to Date: Yes - Suicide/Smoking/Psychosocial Hx Smoking History: Current every day smoker Have you smoked in the past 12 months: No Number of Cigarettes Smoked Daily: 3 Information on smoking cessation initiated: Yes 'Breaking Loose' booklet given: 08/03/18 Hx Alcohol Use: Yes (intoxicated) Drug/Substance Use Hx: No Substance Use Type: Alcohol Hx Substance Use Treatment: No Review of Systems - Review of Systems Able to Perform ROS?: Yes Is the patient limited Bulgarian proficient: No Constitutional: No: Chills, Diaphoresis, Fever HEENTM: No: Recent change in vision, Nose Pain, Throat Pain, Mouth Pain Respiratory: No: Shortness of Breath Cardiac (ROS): No: Chest Pain ABD/GI: No: Constipated, Diarrhea, Nausea, Rectal Bleeding, Vomiting, Abdominal cramping, Tarry Stools : No: Dysuria, Hematuria Musculoskeletal: No: Back Pain Integumentary: No: Rash Neurological: No: Headache, Numbness, Weakness, Ataxia Psychiatric: No: Stressors Endocrine: No: Unexplained Weight Gain Hematologic/Lymphatic: No: Anemia *Physical Exam - Vital Signs Last Vital Signs Temp Pulse Resp BP Pulse Ox 97.7 F 76 16 164/99 97 08/03/18 11:56 08/03/18 11:56 08/03/18 11:56 08/03/18 11:56 08/03/18 11:56 - Physical Exam General Appearance: Yes: Nourished, Appropriately Dressed HEENT: positive: EOMI, MARY, Other (no nystagmus on exam) Neck: positive: Trachea midline. negative: Lymphadenopathy (R), Lymphadenopathy (L) Respiratory/Chest: positive: Lungs Clear, Normal Breath Sounds. negative: Chest Tender, Respiratory Distress, Accessory Muscle Use Cardiovascular: positive: Regular Rhythm, Regular Rate, S1, S2. negative: Systolic Murmur Gastrointestinal/Abdominal: positive: Normal Bowel Sounds, Flat, Soft. negative : Tender Lymphatic: negative: Adenopathy Musculoskeletal: positive: Normal Inspection. negative: CVA Tenderness Extremity: positive: Normal Capillary Refill, Normal Inspection, Normal Range of Motion, Other (no tremors present on exam. ). negative: Tender Integumentary: positive: Normal Color, Dry, Warm Neurologic: positive: admitting supervisor II-XII NML intact, Fully Oriented, Alert, Normal Mood/ Affect, Normal Response, Motor Strength 5/5. negative: Sensory Deficit, Confused ED Treatment Course - LABORATORY CBC & Chemistry Diagram: 08/03/18 13:05 08/03/18 13:05 Medical Decision Making - Medical Decision Making Mr. Yao is a 68 yo M with a hx of alcohol abuse (last detox 4 years ago) and HTN who presents to the emergency department requesting for alcohol detox and admission to [facility]. Per the patient, last drink was 7 am this morning (3 ounces of vodka). Initial vitals: Initial Vital Signs Temp Pulse Resp BP Pulse Ox 97.7 F 76 16 164/99 97 08/03/18 11:56 08/03/18 11:56 08/03/18 11:56 08/03/18 11:56 08/03/18 11:56 Work up: r/o intoxication of alcohol. Patient is requesting to be discharged. He was able to ambulate in the emergency department without difficulty and assistance and is clinically sober. He is requesting to be discharged due to wanting to go outside more frequently. pt stated that he is getting a taxi, will not drive, and is going to his home. Laboratory Tests 08/03/18 08/03/18 13:05 13:05 WBC 8.3 RBC 4.02 Hgb 14.5 Hct 44.0 D MCV 109.2 H MCH 36.0 H MCHC 33.0 RDW 16.1 H Plt Count 193 MPV 7.5 D Absolute Neuts (auto) 4.5 Neutrophils % 54.0 Lymphocytes % 35.9 Monocytes % 8.7 Eosinophils % 0.2 D Basophils % 1.2 Nucleated RBC % 0 Platelet Estimate Adequate Anisocytosis 2+ Macrocytosis 2+ Sodium 143 Potassium 3.4 L Chloride 105 Carbon Dioxide 23 Anion Gap 15 BUN 12 Creatinine 0.9 Creat Clearance w eGFR > 60 Random Glucose 76 Calcium 8.5 Total Bilirubin 0.5 AST 91 H ALT 36 Alkaline Phosphatase 61 Total Protein 6.7 Albumin 4.0 Alcohol, Quantitative 285.8 H potassium at 3.4, given potassium chloride. multivitamin, thiamine, and folic acid given in the department with NS 1 liter. Dispo: Discharge *DC/Admit/Observation/Transfer Diagnosis at time of Disposition: Alcohol abuse - Discharge Dispostion Disposition: HOME Decision to Admit order: No - Referrals - Patient Instructions Printed Discharge Instructions: DI for Alcohol Abuse Additional Instructions: You were evaluated in the emergency department for your request to attend detox for alcohol abuse. We ran basic labs prior to admission to our detox facility. You are requesting to be discharged. You were able to walk in the department and are clinically sober. You stated that you are calling a cab, not driving, and will go straight home. Please return to the emergency department if you develop fevers/chills, unstable blood pressures, hallucinations, intractable nausea and vomiting, and severe pain. Please refrain from drinking and contact your local resources in [place] for alcohol abuse or use the [employer] hotline for alcohol abuse help (4-704-348-HELP ([phone])). Thank you. - Post Discharge Activity
[2018-08-03 13:15] LABS: BASO % 1.2 % (0-2.0); EOS % 0.2 % (0-4.5); HEMOGLOBIN 14.5 GM/dL (11.7-16.9); LYMPH % 35.9 % (8-40); MEAN CELL VOLUME 109.2 fl (80-96); MEAN PLT VOLUME 7.5 fl (7.5-11.1); MONO % 8.7 % (3.8-10.2); PLATELET COUNT 193 K/MM3 (134-434); RBC 4.02 M/mm3 (4.00-5.60); RDW 16.1 % (11.9-15.9); WHITE BLOOD COUNT 8.3 K/mm3 (4.0-10.0)
--- NOTE | 2018-08-03 14:01 | PDOC ---
Attending Attestation - Resident Resident Name: NoeFilemon - ED Attending Attestation I have performed the following: I have examined & evaluated the patient, The case was reviewed & discussed with the resident, I agree w/resident's findings & plan, Exceptions are as noted - HPI HPI: 08/03/18 13:58 68 yo M ho HTN etoh abuse here requesting detox from etoh. last drink was 7 am. denies other drug use. no current sxs of withdrawal such as tremors or hallucinations. no other complaints of cp or sob. would like to go to [facility]. - Physicial Exam PE: 08/03/18 13:59 awake alert speech clear. lungs clear bilaterally heart rrr no mrg abd soft nt nd. ext wwp. nuero alert oriented x 3. gait steady, speech clear. calm and cooperative. skin warm and dry. - Medical Decision Making 08/03/18 14:00 will med clear pt r/o intox, electrolyte abnormality or dehydration. given thiamin, and folate and mvi po. iv hydration. pt requesting to ambulat outside for fresh air. told cant go outside while in ED, now requesting discharge paper.s 08/03/18 14:54 pt labs noted for hypokalemia, 3/4. given potassium. pt would like to go home. is not driving going by cab. mentating well. no gait instability. dc home.
[2018-08-03 14:03] LABS: ALK PHOS 61 U/L (45-117); ANION GAP 15 MMOL/L (8-16); BILIRUBIN,TOTAL 0.5 mg/dL (0.2-1); BLOOD UREA NITROGEN 12 mg/dL (7-18); CALCIUM 8.5 mg/dL (8.5-10.1); CHLORIDE 105 mmol/L (98-107); CO2 23 mmol/L (21-32); CREATININE 0.9 mg/dL (0.55-1.3); GLUCOSE,RANDOM 76 mg/dL (74-106); POTASSIUM 3.4 mmol/L (3.5-5.1); SGOT/AST 91 U/L (15-37); SGPT/ALT 36 U/L (13-61); SODIUM 143 mmol/L (136-145); TOT PROT 6.7 g/dl (6.4-8.2)
[2018-08-03] MEDS ORDERED: FOLIC ACID 1 MG TABLET (FP) ONE (14:04)
[2018-08-03] MEDS ORDERED: POTASSIUM CHLORIDE TABS 20 MEQ TABLET.ER (FP) PO ONE (14:06)
[2018-08-03 14:09] VITALS: BP 139/95; PULSE 82; TEMP 98.2
[2018-08-03 17:41] LABS: ANISOCYTOSIS 2+; MACROCYTOSIS 2+; PLATELET ESTIMATE ADEQUATE
== END 2018-08-03 13:00 | disposition home or self-care (01) ==
LOC: JER 11:36
DX: F10.10 Alcohol abuse, uncomplicated (principal); I10 Essential (primary) hypertension; E78.00 Pure hypercholesterolemia, unspecified; Z79.01 Long term (current) use of anticoagulants
CPT/HCPCS: 36415; 80053; 80307; 85025; 99282-25

== ENCOUNTER 2019-11-03 14:32 | Emergency (ER) | payer OTHER ==
[2019-11-03] MEDS ORDERED: DIPHTH,PERTUSS(ACELL),TET 0.5 ML DISP.SYRIN IM ONE ×2 (14:41→16:32)
[2019-11-03 14:43] VITALS: BMI 21.9
--- NOTE | 2019-11-03 14:45 | PDOC ---
Rapid Medical Evaluation Chief Complaint: Injury Time Seen by Provider: 11/03/19 14:38 Medical Evaluation: Allergies Allergy/AdvReac Type Severity Reaction Status Date / Time enalapril Allergy Verified 07/06/18 03:30 lisinopril Allergy Verified 07/06/18 03:30 11/03/19 14:42 Pt presents to the ED: s/p trip and fall due to left leg pain x 3 days which coincides with LBP after moving daughter's car. Pt states drank vodka also today and when he fell he hit his head and banged his left hand, denies LOC, pt on Eliquis, unknown last tdap Pt on brief exam: noted abrasion and hematoma to left forehead and left hand pt ordered for: head and neck ct , labs pt to proceed to the ED Discharge Disposition - Diagnosis Head injury - Referrals - Patient Instructions - Post Discharge Activity
[2019-11-03 16:44] LABS: BASO % 0.3 % (0-2.0); EOS % 0.3 % (0-4.5); HEMATOCRIT 41.3 % (35.4-49); HEMOGLOBIN 13.6 GM/dL (11.7-16.9); LYMPH % 32.8 % (8-40); MCH 31.1 pg (25.7-33.7); MCHC 32.9 g/dl (32.0-35.9); MEAN CELL VOLUME 94.7 fl (80-96); MEAN PLT VOLUME 9.4 fl (7.5-11.1); MONO % 4.8 % (3.8-10.2); NEUT % 61.8 % (42.8-82.8); PLATELET COUNT 221 K/MM3 (134-434); RBC 4.36 M/mm3 (4.00-5.60); RDW 23.2 % (11.9-15.9); WHITE BLOOD COUNT 10.1 K/mm3 (4.0-10.0)
[2019-11-03 16:53] LABS: ALBUMIN 3.3 g/dl (3.4-5.0); BILIRUBIN,TOTAL 0.4 mg/dL (0.2-1); BLOOD UREA NITROGEN 15.1 mg/dL (7-18); CALCIUM 8.3 mg/dL (8.5-10.1); POTASSIUM 3.5 mmol/L (3.5-5.1); TOT PROT 6.4 g/dl (6.4-8.2)
--- NOTE | 2019-11-03 17:27 | PDOC ---
Documentation entered by Mariza Contreras SCRIBE, acting as scribe for Seda Causey DO. Seda Causey DO: This documentation has been prepared by the Ben dumont Xhesika, SCRIBE, under my direction and personally reviewed by me in its entirety. I confirm that the documentation accurately reflects all work, treatment, procedures, and medical decision making performed by me. Attending Attestation - Resident Resident Name: Elias Montemayor - ED Attending Attestation I have performed the following: I have examined & evaluated the patient, The case was reviewed & discussed with the resident, I agree w/resident's findings & plan, Exceptions are as noted - HPI HPI: 11/03/19 17:29 The patient is a 69 year old male with a significant PMH of alcohol abuse, Afib and HTNwho presents to the emergency department s/p fall. The patient states he was walking past a car wash, tried to sit down, tumbled and fell forward. Pt states he has been endorsing lower back and leg pain for the past 3 days after trying to push a car. Pt states his last drink was at 6am. Pt states he took eliquis on Friday. Pt denies LOC. The patient denies chest pain, shortness of breath, headache and dizziness. Denies fever, chills, cough, nausea, vomiting, diarrhea and constipation. Allergies: Enalapril, lisinopril - Physicial Exam PE: 11/03/19 17:31 GENERAL: Awake, alert, and oriented, in no acute distress. +alcohol on breath. HEAD: +L forehead hematoma. NECK: Normal ROM, supple, no lymphadenopathy, JVD, or masses LUNGS: Breath sounds equal, clear to auscultation bilaterally. No wheezes, and no crackles HEART: Regular rate and rhythm, normal S1 and S2, no murmurs, rubs or gallops ABDOMEN: Soft, nontender, normoactive bowel sounds. No guarding, no rebound. No masses EXTREMITIES: +L fifth knuckle abrasion. + R thumb abrasion. No C-spine tenderness. Normal range of motion, no edema. No clubbing or cyanosis. No cords , erythema. NEUROLOGICAL: Cranial nerves II through XII grossly intact. SKIN: Warm, Dry, normal turgor, no rashes or lesions noted. - Medical Decision Making 11/03/19 17:25 a/p: 69yo male admits to etoh use today -walking and stopped to take a seat when he fell forward when sitting down and hit the L front of his forehead -off eliquis since friday - forgot to take it -drinking daily -small hematoma to L forehead, small abrasions to hands -head, c spine ct reviewed - no acute findings -labs reviewed, etoh 363 -neuro intact -will monitor and reassess 11/03/19 18:30 repeat vitals show pt in tachy, in afib at rvr at 114, will dose po meds pt adamant about not staying pt also states he has not taken his meds since friday11/03/19 19:08 HR 80s-105 after oral meds discussed need for med compliance, decreasing smoking, decreasing etoh pt does not want detox pt asking to go home walking around the ER with a steady gait, no slurred speech neuro intact Heart Score/ECG Review - ECG Intrepretation Comment:: 11/03/19 18:30 afib w rvr at 114, nl axis, q waves septally which are age indeterminate, no acute st/t wave findings
[2019-11-03 17:33] LABS: ANISOCYTOSIS 3+; MACROCYTOSIS 1+
[2019-11-03 17:34] LABS: OVALOCYTE FEW; PLATELET ESTIMATE ADEQUATE; TARGET CELLS OCCASIONAL
--- NOTE | 2019-11-03 17:52 | PDOC ---
History of Present Illness - General Chief Complaint: Injury Stated Complaint: FALL Time Seen by Provider: 11/03/19 14:38 History Source: Patient Exam Limitations: No Limitations - History of Present Illness Initial Comments: 11/03/19 17:17 69M with a PMH of COPD, a-fib (on eliquis, cardizem), HTN, chronic EtOH who presents to the ER after having a fall. The patient states that within the last week, he "may have pulled" his lower back pushing his daughter's car after it ran out of gas. He states that he was drinking this morning, a half pint of liquor, and tried to sit down and fell forward, hitting his head and catching the rest of his body with his hands. He denies any current complaints including headache, saddle anesthesia, numbness, tingling, weakness, bowel/bladder incontinence, and IVDA. Past History - Past Medical History Allergies/Adverse Reactions: Allergies Allergy/AdvReac Type Severity Reaction Status Date / Time enalapril Allergy Verified 07/06/18 03:30 lisinopril Allergy Verified 07/06/18 03:30 Home Medications: Ambulatory Orders Albuterol Sulfate Inhaler - [Ventolin HFA Inhaler -] 1 puff QID 05/28/18 Ranitidine [Zantac -] 150 mg PO DAILY 05/28/18 Vitamin B-12 1,000 mg PO DAILY 05/28/18 Apixaban [Eliquis -] 5 mg PO BID #60 tablet 06/29/18 Diltiazem Cd [Cardizem Cd -] 240 mg PO DAILY #30 cap.cd.24h 06/29/18 Anemia: No Asthma: No Cancer: No Cardiac Disorders: Yes (htn) CVA: No COPD: No CHF: No DVT: No (taking blood thinners) Dementia: No Diabetes: No Dialysis: No GI Disorders: No Disorders: No HTN: Yes Hypercholesterolemia: Yes Kidney Stones: No Liver Disease: No Psychiatric Problems: Yes (substance abuse) Seizures: No Thyroid Disease: No Lung CA: No - Surgical History Abdominal Surgery: No Appendectomy: No Cardiac Surgery: No Cholecystectomy: No Gastric Stapling: No GI Surgery: No Lung Surgery: No Neurologic Surgery: No - Immunization History Immunization Up to Date: Yes - Psycho Social/Smoking Cessation Hx Smoking History: Current every day smoker Have you smoked in the past 12 months: Yes Number of Cigarettes Smoked Daily: 3 Information on smoking cessation initiated: Yes 'Breaking Loose' booklet given: 08/03/18 Hx Alcohol Use: Yes Drug/Substance Use Hx: No Substance Use Type: Alcohol Hx Substance Use Treatment: No Review of Systems - Review of Systems Able to Perform ROS?: Yes Comments:: 11/03/19 18:11 GENERAL/CONSTITUTIONAL: + for fall. No fever or chills. No weakness. HEAD, EYES, EARS, NOSE AND THROAT: No change in vision. No ear pain or discharge. No sore throat. CARDIOVASCULAR: No chest pain, palpitations, or lightheadedness. RESPIRATORY: No cough, wheezing, shortness of breath, or hemoptysis. GASTROINTESTINAL: No abdominal pain, nausea, vomiting, diarrhea, or constipation. GENITOURINARY: No dysuria, frequency, hematuria, or change in urination. MUSCULOSKELETAL: + for low back pain. No joint or muscle swelling or pain. No neck pain. SKIN: No rash or lesions. NEUROLOGIC: No headache, numbness, tingling, focal weakness, loss of consciousness, or change in strength/sensation. Is the patient limited Azeri proficient: No *Physical Exam - Vital Signs Last Vital Signs Temp Pulse Resp BP Pulse Ox 98 F 92 H 18 149/101 H 96 11/03/19 14:38 11/03/19 14:38 11/03/19 14:38 11/03/19 14:38 11/03/19 14:38 - Physical Exam 11/03/19 18:14 GENERAL: Well developed, well nourished. Awake and alert. No acute distress. EtOH on breath. HEENT: Normocephalic, atraumatic. Hearing grossly normal. Moist mucous membranes. PERRLA, EOMI. No conjunctival pallor. Sclera are non-icteric. NECK: Supple. Full ROM. No JVD. No midline tenderness. CARDIOVASCULAR: Regular rate and rhythm. No murmurs, rubs, or gallops. PULMONARY: No evidence of respiratory distress. Lungs clear to auscultation bilaterally. No wheezing, rales, or rhonchi. ABDOMINAL: Soft. Non-tender. Non-distended. No rebound or guarding. No organomegaly. Normoactive bowel sounds. GENITOURINARY: No CVA tenderness bilaterally. MUSCULOSKELETAL: No midline spinal tenderness. Mild tenderness over lumbar paraspinal area. Normal range of motion at all joints. No bony deformities or tenderness. EXTREMITIES: No cyanosis. No clubbing. No edema. No calf tenderness or swelling. SKIN: Warm and dry. Normal capillary refill. No rashes. No jaundice. Abrasion over bilateral 5th MTP's. NEUROLOGICAL: Alert, awake, appropriate. Cranial nerves 2-12 intact. No deficits to light touch and temperature in face, upper extremities and lower extremities. 5/5 strength in deltoids, biceps, triceps, quadriceps, hamstrings, and gastrocnemius. Normoreflexic in the upper and lower extremities. Normal speech. Gait is normal without ataxia. PSYCHIATRIC: Cooperative. Good eye contact. Appropriate mood and affect. ED Treatment Course - LABORATORY CBC & Chemistry Diagram: 11/03/19 15:25 11/03/19 15:25 - ADDITIONAL ORDERS Additional order review: Laboratory Results 11/03/19 15:25 Sodium 146 H Potassium 3.5 Chloride 109 H Carbon Dioxide 31 Anion Gap 7 L BUN 15.1 Creatinine 1.0 Est GFR (CKD-EPI)AfAm 89.86 Est GFR (CKD-EPI)NonAf 77.54 Random Glucose 105 Calcium 8.3 L Total Bilirubin 0.4 AST 28 ALT 24 Alkaline Phosphatase 89 Total Protein 6.4 Albumin 3.3 L Alcohol, Quantitative 363.7 H 11/03/19 15:25 RBC 4.36 MCV 94.7 MCHC 32.9 RDW 23.2 H MPV 9.4 D Neutrophils % 61.8 Lymphocytes % 32.8 Monocytes % 4.8 Eosinophils % 0.3 Basophils % 0.3 - Medications Given in the ED: ED Medications Discontinued Medications Generic Name Dose Route Start Last Admin Trade Name Freq PRN Reason Stop Dose Admin Diphtheria/Tetanus/Acell Pertussis 0.5 ml 11/03/19 14:41 11/03/19 16:40 Boostrix - IM 11/03/19 14:42 0.5 ml .ONCE ONE Administration Medical Decision Making - Medical Decision Making 11/03/19 18:15 69M with MMP who presents after having a fall 2/2 EtOH. Pt denies syncope, lightheadedness, changes in vision, numbness, tingling, weakness, LOC. Labs WNL. Head CT and c-spine negative. D/t eliquis, will monitor until 1900. 11/03/19 18:37 EKG shows a-fib with RVR w/o ischemic changes. Giving home metoprolol and dig. 11/03/19 18:54 HR noted in the 80's but went to 105. Will continue to monitor until rapid afib resolved. Pt denies any complaints. 11/03/19 19:00 Pt will be further cared for by Dr. Causey who is aware of pt. Discharge - Discharge Information Problems reviewed: Yes Clinical Impression/Diagnosis: Head injury Qualifiers: Encounter type: initial encounter Qualified Code(s): S09.90XA - Unspecified injury of head, initial encounter Condition: Good Disposition: HOME - Admission No - Follow up/Referral - Patient Discharge Instructions Patient Printed Discharge Instructions: DI for Closed Head Injury Additional Instructions: Your ER visit is not complete until your follow up with your primary care physician. Please follow up with your primary care physician in 1-2 days. Please return to the ER if you have any signs or symptoms of chest pain, shortness of breath, uncontrollable fever, chills, nausea, vomiting, numbness, tingling, or weakness in any part of your body, changes in vision, or slurred speech. Please take your medications as prescribed. Please return to the ER if symptoms persist, worsen, or new symptoms arise. - Post Discharge Activity
[2019-11-03 18:12] VITALS: BP 155/99; TEMP 97.5
[2019-11-03] MEDS ORDERED: DIGOXIN 0.125 MG TABLET (FP) PO ONE (18:31)
[2019-11-03] MEDS ORDERED: DIGOXIN 0.125 MG TABLET (FP) ONE (18:34)
[2019-11-03 19:59] VITALS: PULSE 102
--- NOTE | 2019-11-04 15:15 | EKG ---
Test Reason : Blood Pressure : / mmHG Vent. Rate : 114 BPM Atrial Rate : 119 BPM P-R Int : 000 ms QRS Dur : 096 ms QT Int : 344 ms P-R-T Axes : 000 052 086 degrees QTc Int : 474 ms ATRIAL FIBRILLATION WITH RAPID VENTRICULAR RESPONSE SEPTAL INFARCT , AGE UNDETERMINED ABNORMAL ECG WHEN COMPARED WITH ECG OF 29-JUN-2018 04:16, ATRIAL FIBRILLATION HAS REPLACED SINUS RHYTHM Confirmed by AKIKO MCGRATH MD ([id number]) on 11/04/2019 3:14:59 PM Referred By: Confirmed By:AKIKO MCGRATH MD
== END 2019-11-03 20:00 | disposition home or self-care (01) ==
LOC: JER 14:32
PROC: 3E0234Z Introduction of Serum, Toxoid and Vaccine into Muscle, Percutaneous Approach (ICD-10-PCS; principal; 2019-11-03)
DX: S09.90XA Unspecified injury of head, initial encounter (principal); W18.39XA Other fall on same level, initial encounter; Y93.89 Activity, other specified; Y92.410 Unspecified street and highway as the place of occurrence of the external cause; I48.91 Unspecified atrial fibrillation; F17.210 Nicotine dependence, cigarettes, uncomplicated; F19.10 Other psychoactive substance abuse, uncomplicated; I10 Essential (primary) hypertension; E78.00 Pure hypercholesterolemia, unspecified; Z79.01 Long term (current) use of anticoagulants
CPT/HCPCS: 36415; 70450-TC; 72125-TC; 80053; 80307; 85025; 90471; 90715; 93005; 93010; 99285-25

== ENCOUNTER 2019-11-04 02:45 | Emergency (ER) | payer OTHER ==
[2019-11-04 03:17] VITALS: BP 151/86; PULSE 82; TEMP 97.9; BMI 20.7
--- NOTE | 2019-11-04 04:48 | PDOC ---
History of Present Illness - General Chief Complaint: Lethargy Stated Complaint: DIFFICULTY SLEEPING Past History - Past Medical History Allergies/Adverse Reactions: Allergies Allergy/AdvReac Type Severity Reaction Status Date / Time enalapril Allergy Verified 11/04/19 03:17 lisinopril Allergy Verified 11/04/19 03:17 Home Medications: Ambulatory Orders Albuterol Sulfate Inhaler - [Ventolin HFA Inhaler -] 1 puff QID 05/28/18 Ranitidine [Zantac -] 150 mg PO DAILY 05/28/18 Vitamin B-12 1,000 mg PO DAILY 05/28/18 Apixaban [Eliquis -] 5 mg PO BID #60 tablet 06/29/18 Diltiazem Cd [Cardizem Cd -] 240 mg PO DAILY #30 cap.cd.24h 06/29/18 Anemia: No Asthma: No Cancer: No Cardiac Disorders: Yes (htn) CVA: No COPD: No CHF: No DVT: No (taking blood thinners) Dementia: No Diabetes: No Dialysis: No GI Disorders: No Disorders: No HTN: Yes Hypercholesterolemia: Yes Kidney Stones: No Liver Disease: No Psychiatric Problems: Yes (substance abuse) Seizures: No Thyroid Disease: No Lung CA: No - Surgical History Abdominal Surgery: No Appendectomy: No Cardiac Surgery: No Cholecystectomy: No Gastric Stapling: No GI Surgery: No Lung Surgery: No Neurologic Surgery: No - Immunization History Immunization Up to Date: Yes - Psycho Social/Smoking Cessation Hx Smoking History: Current some day smoker Have you smoked in the past 12 months: Yes Number of Cigarettes Smoked Daily: 3 Information on smoking cessation initiated: No 'Breaking Loose' booklet given: 08/03/18 Hx Alcohol Use: Yes Drug/Substance Use Hx: No Substance Use Type: Alcohol Hx Substance Use Treatment: No *Physical Exam - Vital Signs Last Vital Signs Temp Pulse Resp BP Pulse Ox 97.9 F 82 15 151/86 98 11/04/19 02:45 11/04/19 02:45 11/04/19 02:45 11/04/19 02:45 11/04/19 02:45 Medical Decision Making - Medical Decision Making 11/04/19 04:48 HPI: 69yo M hx alcohol abuse, Afib and HTN, recent d/c from here last PM (c/o fall, w /u including CTH/c-spine negative) presents from home with trouble falling asleep tonight. Pt states he was discharged last night and has had no significant events since then. Denies trauma or head injury or falls. States is tired and tried to fall asleep but couldn't so drank alcohol. States trouble sleeping is a chronic issue. Pt has not talked to his PCP about it. Denies pain , fever, chills, fatigue, headache, dizziness, numbness/tingling, weakness, vision changes, shortness of breath, cough, chest pain, palpitations, leg swelling, abdominal pain, blood in stool, diarrhea, constipation, nausea, vomiting, dysuria, hematuria, confusion. ROS: Constitutional: Positive for difficulty sleeping. Negative for chills, fever, fatigue, diaphoresis. HENT: Negative for sore throat, rhinorrhea, congestion. Eyes: Negative for visual disturbance. Respiratory: Negative for shortness of breath, cough, and wheezing. Cardiovascular: Negative for chest pain, palpitations, and leg swelling. Gastrointestinal: Negative for abdominal pain, blood in stool, constipation, diarrhea, nausea, and vomiting. Genitourinary: Negative for dysuria, flank pain, and hematuria. Musculoskeletal: Negative for myalgias, back pain, and neck pain. Skin: Negative for rash. Neurological: Negative for light-headedness, dizziness, vertigo, syncope, weakness, numbness and headaches. Psychiatric/Behavioral: Negative for behavioral problems and confusion. PE: Gen: Alert, NAD, comfortable-appearing, disheveled, alcohol on breath, playing music loudly from phone HEENT: PERRL, EOMI, MMM, NCAT. +abrasion to L forehead. No conjunctival pallor. Sclera are non-icteric. CV: Regular rate and rhythm. No murmurs, rubs, or gallops. PULM: No resp distress. CTAB, no wheezes, rales, or rhonchi. ABD: soft, NT/ND, no rebound tenderness or guarding, no CVA tenderness. BACK: No TTP of c/t/l-spine. No step-offs or deformities. MSK: No bony deformities. 2+ pulses in all extremities. NEURO: AAOx3. PERRL. No gross CN deficits. Strength and sensation grossly intact throughout. Normal gait. EXTREMITIES: No cyanosis. No clubbing. No edema. No calf tenderness. PSYCH: Normal mood and thought pattern. SKIN: +multiple abrasions to hands. +abrasion to L forehead. Warm and dry. Normal capillary refill. No rashes. No jaundice. MDM: 69yo M hx alcohol abuse, Afib and HTN, recent d/c from here last PM (c/o fall, w /u including CTH/c-spine negative) presents from home with trouble falling asleep tonight. Pt has steady gait. Asymptomatic at this time. Benign exam. Hemodynamically stable, afebrile. No s/s concerning for emergent condition. Discussed need for PCP f/u for management of sleep. Pt understands and has no further complaints, would like to go home. Safe for d/c. Will dc home with PCP f/u. Return precautions given. Pt understands all dc instructions and all questions were answered. Discharge - Discharge Information Problems reviewed: Yes Clinical Impression/Diagnosis: Malingering Condition: Improved Disposition: HOME - Admission No - Follow up/Referral - Patient Discharge Instructions Additional Instructions: You have been seen in the Emergency Department for your difficulty falling asleep. Follow-up with your primary care doctor within 1 week. Return to the Emergency Department immediately if you experience and new or worsening symptoms including passing out, chest pain, or difficulty breathing. - Post Discharge Activity
--- NOTE | 2019-11-04 04:53 | PDOC ---
Attending Attestation - Resident Resident Name: LillianaCharo - ED Attending Attestation I have performed the following: I have examined & evaluated the patient, The case was reviewed & discussed with the resident, I agree w/resident's findings & plan - HPI HPI: 11/04/19 04:53 see resident hpi - Physicial Exam PE: 11/04/19 04:53 see resident exam - Medical Decision Making 11/04/19 05:08 69-year-old male recently discharged from the emergency department now here stating he is tired but he cannot sleep. Patient has been walking up and down the hallway playing loud music from his cell phone requesting to be discharged. It is unclear why he has returned to the emergency department, he is not requesting any further care at this time He has steady gait and is alert and oriented x4, he is able to communicate his needs. He will be discharged home with recommendations to follow-up with a primary care physician
== END 2019-11-04 05:28 | disposition home or self-care (01) ==
LOC: JER 02:45
DX: Z76.5 Malingerer [conscious simulation] (principal); F10.10 Alcohol abuse, uncomplicated; I48.91 Unspecified atrial fibrillation; I10 Essential (primary) hypertension; F17.210 Nicotine dependence, cigarettes, uncomplicated; E78.00 Pure hypercholesterolemia, unspecified
CPT/HCPCS: 99281-25

== ENCOUNTER → 2019-12-01 | Emergency (ER) | payer OTHER ==
[2019-12-01 09:39] VITALS: BP 161/120; PULSE 95; TEMP 97.9; BMI 20.7
--- NOTE | 2019-12-01 11:11 | EKG ---
Test Reason : Blood Pressure : / mmHG Vent. Rate : 115 BPM Atrial Rate : 277 BPM P-R Int : 000 ms QRS Dur : 094 ms QT Int : 346 ms P-R-T Axes : 000 042 166 degrees QTc Int : 478 ms ATRIAL FIBRILLATION WITH RAPID VENTRICULAR RESPONSE MINIMAL VOLTAGE CRITERIA FOR LVH, MAY BE NORMAL VARIANT SEPTAL INFARCT (CITED ON OR BEFORE 03-NOV-2019) ABNORMAL ECG WHEN COMPARED WITH ECG OF 03-NOV-2019 18:23, NO SIGNIFICANT CHANGE WAS FOUND Confirmed by MD HANK, SHANTEL ([id number]) on 12/01/2019 11:11:01 AM Referred By: Confirmed By:SHANTEL MCKINNEY MD
== END | disposition left against medical advice (07) ==
LOC: JER 09:13
DX: R06.02 Shortness of breath (principal)
CPT/HCPCS: 93005; 93010; 99283-25

== ENCOUNTER 2020-03-23 02:21 | Inpatient (IN) | payer OTHER ==
--- NOTE | 2020-03-23 02:27 | PDOC ---
History of Present Illness - General Stated Complaint: WEAKNESS History Source: Patient - History of Present Illness Initial Comments: 03/23/20 02:26 69 year old male, with a significant PMH of HLD, HTN, COPD (not on home O2). Afib (on eliquis) and chronic alcohol/nicotine use p/w one month weakness in bilateral LEs, unable to ambulate at this time. He reports a fall at home two days ago secondary to leg weakness, after which he stayed on the ground for 24 hours as he was unable to stand himself up. He denies any head injury, LOC, or head or neck pain. He reports drinking half a pint of liquor today (same every day to sleep). He reports similar leg weakness/pain in the lower extremities two months ago which resolved without intervention. Past History - Medical History Allergies/Adverse Reactions: Allergies Allergy/AdvReac Type Severity Reaction Status Date / Time enalapril Allergy Swelling Verified 03/23/20 04:09 lisinopril Allergy Swelling Verified 03/23/20 04:09 Home Medications: Ambulatory Orders Hydralazine HCl 10 mg PO DAILY 01/27/20 Apixaban [Eliquis] 5 mg PO BID 02/18/20 Isosorbide Mononitrate [Imdur -] 30 mg PO DAILY 02/18/20 Metoprolol Succinate 75 mg PO BID 03/23/20 Anemia: No Asthma: No Cancer: No Cardiac Disorders: Yes (Afib, LHC last year) CVA: No COPD: Yes CHF: No DVT: No (taking blood thinners) Dementia: No Diabetes: No Dialysis: No GI Disorders: No Disorders: No HTN: Yes Hypercholesterolemia: Yes Kidney Stones: No Liver Disease: No Psychiatric Problems: Yes (substance abuse) Seizures: Yes (09/2018 hospitalization) Thyroid Disease: No Lung CA: No - Surgical History Abdominal Surgery: No Appendectomy: No Cardiac Surgery: No Cholecystectomy: No Gastric Stapling: No GI Surgery: No Lung Surgery: No Neurologic Surgery: No - Immunization History Immunization Up to Date: Yes - Psycho-Social/Smoking History Smoking History: Current every day smoker Have you smoked in the past 12 months: Yes Number of Cigarettes Smoked Daily: 3 'Breaking Loose' booklet given: 01/27/20 Review of Systems - Review of Systems Able to Perform ROS?: Yes Comments:: 03/23/20 03:54 GENERAL/CONSTITUTIONAL: Weakness. No fever or chills. HEAD, EYES, EARS, NOSE AND THROAT: No change in vision. No ear pain or discharge. No sore throat. CARDIOVASCULAR: No chest pain or shortness of breath RESPIRATORY: No cough, wheezing, or hemoptysis. GASTROINTESTINAL: No nausea, vomiting, diarrhea or constipation. GENITOURINARY: No dysuria, frequency, or change in urination. MUSCULOSKELETAL: Bilateral LE pain. No other joint or muscle swelling or pain. No neck or back pain. SKIN: No rash NEUROLOGIC: No headache, vertigo, loss of consciousness, or change in strength/sensation. ENDOCRINE: No increased thirst. No abnormal weight change HEMATOLOGIC/LYMPHATIC: No anemia, easy bleeding, or history of blood clots. ALLERGIC/IMMUNOLOGIC: No hives or skin allergy. *Physical Exam - Physical Exam 03/23/20 03:55 GENERAL: Intoxicated. Awake, alert, and fully oriented, in no acute distress HEAD: No signs of trauma, normocephalic, atraumatic EYES: PERRLA, EOMI, sclera anicteric, conjunctiva clear ENT: Auricles normal inspection, hearing grossly normal, nares patent, oropharynx clear without exudates. Moist mucosa NECK: Normal ROM, supple, no lymphadenopathy, JVD, or masses LUNGS: No distress, speaks full sentences, clear to auscultation bilaterally HEART: Regular rate and rhythm, normal S1 and S2, no murmurs, rubs or gallops, peripheral pulses normal and equal bilaterally. ABDOMEN: Soft, nontender, normoactive bowel sounds. No guarding, no rebound. No masses EXTREMITIES : Normal inspection, Normal range of motion, no edema. No clubbing or cyanosis NEUROLOGICAL: Cranial nerves II through XII grossly intact. Normal speech, normal gait, no focal sensorimotor deficits SKIN: Warm, Dry, normal turgor, no rashes or lesions noted ED Treatment Course - LABORATORY CBC & Chemistry Diagram: 03/23/20 03:09 03/23/20 05:05 Medical Decision Making - Medical Decision Making 03/23/20 03:55 70M w/hx etoh use disorder, COPD, HTN, HLD p/w one month of LE weakness, recent fall at home, intoxicated (last drink immediately before arrival to ED). Ddx subdural vs other ICH, wernickes vs other etoh related electrolyte disturbance, hypoglycemia, CVA. Plan: CT Head CT cervical spine BGM CBC CMP EKG CXR Cardiac profile 1L LR Folic acid supplement Thiamine supplement Dispo: Admit 03/23/20 04:43 Creatinine - 1.8 (prior 1.2) 03/23/20 06:20 CT Head - no acute process noted CT cervical spine - no acute fracture Discharge - Discharge Information Problems reviewed: Yes Clinical Impression/Diagnosis: ROSAS (acute kidney injury), Alcohol abuse Disposition: AGAINST MEDICAL ADVICE - Follow up/Referral - Patient Discharge Instructions - Post Discharge Activity
--- NOTE | 2020-03-23 02:44 | PDOC ---
Attending Attestation - Resident Resident Name: GretchenSemaj - ED Attending Attestation I have performed the following: I have examined & evaluated the patient, The case was reviewed & discussed with the resident, I agree w/resident's findings & plan - HPI HPI: 03/23/20 04:09 see resident hpi - Physicial Exam PE: 03/23/20 04:09 see resident exam - Medical Decision Making 03/23/20 04:09 70-year-old male with history of alcohol abuse complaining of weakness Labs suggest dehydration with acute kidney injury Vitamin replacement and IV fluids administered in the emergency department We will admit for further evaluation to medical service Discharge - Discharge Information Problems reviewed: Yes Clinical Impression/Diagnosis: ROSAS (acute kidney injury), Alcohol abuse - Follow up/Referral - Patient Discharge Instructions - Post Discharge Activity
[2020-03-23] MEDS ORDERED: THIAMINE HCL 200 MG/2 ML VIAL IVPB ONE (02:57)
[2020-03-23] MEDS ORDERED: FOLIC ACID 1 MG TABLET (FP) PO ONE (02:57)
[2020-03-23] MEDS ORDERED: LACTATED RINGERS SOLUTION 1000 ML INFUS.BAG IV ONE (03:00)
[2020-03-23 03:27] LABS: BASO % 0.5 % (0-2.0); MCH 27.2 pg (25.7-33.7); MCHC 31.7 g/dl (32.0-35.9)
[2020-03-23 03:35] LABS: EOS % 0.6 % (0-4.5); HEMATOCRIT 37.8 % (35.4-49); LYMPH % 26.5 % (8-40); MEAN CELL VOLUME 85.9 fl (80-96); MEAN PLT VOLUME 8.8 fl (7.5-11.1); MONO % 5.9 % (3.8-10.2); NEUT % 66.5 % (42.8-82.8); PLATELET COUNT 159 K/MM3 (134-434); RDW 26.2 % (11.9-15.9); WHITE BLOOD COUNT 9.1 K/mm3 (4.0-10.0)
[2020-03-23 03:44] LABS: INR 0.92 (0.83-1.09); PROTHROMBIN TIME (PATIENT) 10.9 SEC (9.7-13.0)
[2020-03-23 03:47] LABS: ACTIVATED PTT 31.9 SECONDS (25.2-36.5)
[2020-03-23] MEDS ORDERED: FOLIC ACID 1 MG TABLET (FP) ONE (03:49)
[2020-03-23] MEDS ORDERED: THIAMINE HCL 200 MG/2 ML VIAL ONE (03:49)
[2020-03-23 04:02] LABS: ALBUMIN 3.2 g/dl (3.4-5.0); ALK PHOS 81 U/L (45-117); BLOOD UREA NITROGEN 28.2 mg/dL (7-18); CALCIUM 8.1 mg/dL (8.5-10.1); CHLORIDE 100 mmol/L (98-107); CO2 24 mmol/L (21-32); CREATININE 1.8 mg/dL (0.55-1.3); GLUCOSE,RANDOM 128 mg/dL (74-106); SGOT/AST 118 U/L (15-37); SODIUM 134 mmol/L (136-145); TOT PROT 6.8 g/dl (6.4-8.2)
[2020-03-23 04:08] VITALS: TEMP 98.1; BMI 21.2
[2020-03-23 04:42] LABS: ANISOCYTOSIS 2+
[2020-03-23 04:43] LABS: OVALOCYTE OCCASIONAL; PLATELET ESTIMATE ADEQUATE
[2020-03-23 05:09] LABS: ANION GAP 11 MMOL/L (8-16); SGPT/ALT 36 U/L (13-61)
[2020-03-23 06:18] VITALS: BP 146/80; PULSE 61
[2020-03-23 06:46] LABS: POTASSIUM 4.3 mmol/L (3.5-5.1)
[2020-03-23] MEDS ORDERED: FOLIC ACID INJECTION - 1 MG, THIAMINE HCL 100 MG, MULTIVIT INJECTION ADULT 10 ML in SOD... IVPB ONE (07:28)
[2020-03-23] MEDS ORDERED: HEPARIN NA (PORCINE) 5,000 UNITS/ML 1ML VIAL SQ SCH (07:30)
[2020-03-23] MEDS ORDERED: chlordiazePOXIDE HCL 10 MG CAPSULE PO PRN (07:39)
[2020-03-23 08:12] LABS: MAGNESIUM 1.7 mg/dL (1.8-2.4); PHOSPHOROUS 3.2 mg/dL (2.5-4.9)
--- NOTE | 2020-03-23 08:14 | HP ---
CHIEF COMPLAINT: b/l LE weakness, s/p fall PCP: Dr. Sabillon HISTORY OF PRESENT ILLNESS: 70M pmhx of afib, HTN, alcohol abuse presents with progressively worsening b/l LE weakness, s/p fall last Friday (03/17). Denies head injury, loc, bodily injury. Pt reports remaining on the floor overnight due to weakness, but was able to get up the next day. Pt has hx of alcohol abuse, last drink was last night ~1/2 pint of vodka. Has hx of multiple hospitalizations for alcohol withdrawal in the past (most recent admission 01/2020). In ED, pt found to have ROSAS (Cr 1.8, previously 1.2). Pt is admitted for ROSAS and for management of alcohol withdrawal. Allergies enalapril Allergy (Verified 03/23/20 04:09) Swelling lisinopril Allergy (Verified 03/23/20 04:09) Swelling HOME MEDICATIONS: Home Medications Medication Instructions Recorded Hydralazine HCl 10 mg PO DAILY 01/27/20 Metoprolol Succinate 75 mg PO DAILY 01/27/20 Apixaban [Eliquis] 5 mg PO BID 02/18/20 Isosorbide Mononitrate [Imdur -] 30 mg PO DAILY 02/18/20 REVIEW OF SYSTEMS Neg, except as per HPI PHYSICAL EXAMINATION Vital Signs - 24 hr 03/23/20 03/23/20 02:21 06:17 Temperature 98.1 F Pulse Rate 75 Pulse Rate [ 61 Apical] Respiratory 15 16 Rate Blood Pressure 116/72 Blood Pressure 146/80 [Left Arm] O2 Sat by Pulse 100 98 Oximetry (%) PE: AAOx3, NAD HEAD: AT/NC. HEART: Irregularly irregular rhythm, no murmurs noted LUNGS CTA B/L, No wheezes/rales noted ABD: soft, NT/ND, no fluid shift noted, +bs MSK: No peripheral edema noted NEURO: mild tremor in hands R>L Laboratory Results - last 24 hr 03/23/20 03/23/20 03/23/20 03:09 03:09 03:09 WBC 9.1 RBC 4.40 Hgb 12.0 Hct 37.8 MCV 85.9 MCH 27.2 MCHC 31.7 L RDW 26.2 H Plt Count 159 MPV 8.8 Absolute Neuts (auto) 6.0 Neutrophils % 66.5 Lymphocytes % 26.5 Monocytes % 5.9 Eosinophils % 0.6 Basophils % 0.5 D Nucleated RBC % 0 Hypochromia 1+ Platelet Estimate Adequate Anisocytosis 2+ Microcytosis 1+ Ovalocytes Occasional Stomatocytes Few Fragmented RBCs Few PT with INR 10.90 INR 0.92 PTT (Actin FS) 31.9 Sodium 134 L Potassium No Result Required. Chloride 100 Carbon Dioxide 24 Anion Gap 11 BUN 28.2 H Creatinine 1.8 H Est GFR (CKD-EPI)AfAm 43.84 Est GFR (CKD-EPI)NonAf 37.83 Random Glucose 128 H Calcium 8.1 L Total Bilirubin 1.0 AST 118 H ALT 36 Alkaline Phosphatase 81 Creatine Kinase 730 H Creatine Kinase Index 1.3 CK-MB (CK-2) 10.0 H Troponin I 0.04 Total Protein 6.8 Albumin 3.2 L Alcohol, Quantitative 03/23/20 03/23/20 03:09 05:05 WBC RBC Hgb Hct MCV MCH MCHC RDW Plt Count MPV Absolute Neuts (auto) Neutrophils % Lymphocytes % Monocytes % Eosinophils % Basophils % Nucleated RBC % Hypochromia Platelet Estimate Anisocytosis Microcytosis Ovalocytes Stomatocytes Fragmented RBCs PT with INR INR PTT (Actin FS) Sodium Potassium 4.3 Chloride Carbon Dioxide Anion Gap BUN Creatinine Est GFR (CKD-EPI)AfAm Est GFR (CKD-EPI)NonAf Random Glucose Calcium Total Bilirubin AST ALT Alkaline Phosphatase Creatine Kinase Creatine Kinase Index CK-MB (CK-2) Troponin I Total Protein Albumin Alcohol, Quantitative 357.9 H 299.9 H ASSESSMENT/PLAN: 70M pmhx of afib, HTN, alcohol abuse presents with progressively worsening b/l LE weakness, s/p fall admitted for b/l LE weakness and ROSAS. ROSAS S/p Fall 2/2 b/l LE weakness Alcohol Withdrawal Hypomagnesemia Afib HTN -IVf, renal ultrasound, trend BMP -Librium Protocol started -Fall precautions -CT head/CT C-spine neg, CXR +mild b/l increased interstitial markings, mainly in R lung -PT -Banana bag, MVI, Thiamine, Folate -Cont home BP meds, Eliquis -admit to med-surg SEE FULL H&P Visit type - Emergency Visit Emergency Visit: Yes ED Registration Date: 03/23/20 Care time: The patient presented to the Emergency Department on the above date and was hospitalized for further evaluation of their emergent condition. - New Patient This patient is new to me today: Yes Date on this admission: 03/23/20 - Critical Care Critical Care patient: No ATTENDING PHYSICIAN STATEMENT I saw and evaluated the patient. I reviewed the resident's note and discussed the case with the resident. I agree with the resident's findings and plan as documented. SUBJECTIVE: OBJECTIVE: ASSESSMENT AND PLAN:
[2020-03-23 08:16] LABS: EPI CELLS 1 /uL (0-25.1); HYALINE CASTS 1 /uL (0-3.1); PH,URINE 5.5 (5.0-8.0); URINE APPEARANCE CLEAR; URINE BACTERIA 2 /uL (0-1359); URINE BILIRUBIN NEGATIVE (NEGATIVE); URINE COLOR YELLOW; URINE GLUCOSE (UA) NEGATIVE (NEGATIVE); URINE KETONE NEGATIVE (NEGATIVE); URINE LEUK ESTERASE NEGATIVE (NEGATIVE); URINE NITRITE NEGATIVE (NEGATIVE); URINE PROTEIN TRACE (NEGATIVE); URINE RBC 24 /uL (0-23.9); URINE WBC 2 /uL (0-25.8)
[2020-03-23] MEDS ORDERED: MAGNESIUM OXIDE 400 MG TABLET (FP) PO ONE (08:51)
[2020-03-23] MEDS ORDERED: MULTIVITAMINS (DAILY MVI) TABLET (FP) PO SCH (10:00)
[2020-03-23] MEDS ORDERED: APIXABAN 5 MG TABLET PO SCH (10:00)
[2020-03-23] MEDS ORDERED: metoPROLOL SUCCINATE 25 MG TAB.SR.24H (FP) PO SCH ×2 (10:00)
[2020-03-23] MEDS ORDERED: FOLIC ACID 1 MG TABLET (FP) PO SCH (10:00)
[2020-03-23] MEDS ORDERED: hydrALAZINE HCL 10 MG TABLET PO SCH (10:00)
[2020-03-23] MEDS ORDERED: THIAMINE HCL 100 MG TABLET (FP) PO SCH (10:00)
[2020-03-23] MEDS ORDERED: ISOSORBIDE MONONITRATE 30 MG TAB.SR.24H (FP) PO SCH (10:00)
[2020-03-23] MEDS ORDERED: chlordiazePOXIDE HCL 25 MG CAPSULE PO SCH (13:00)
--- NOTE | 2020-03-23 13:49 | HP ---
CHIEF COMPLAINT: b/l LE weakness PCP: Dr. Sabillon HISTORY OF PRESENT ILLNESS: 70M w/ pmhx of afib, HTN, alcohol abuse presents to the ED with complaints of progressively worsening b/l LE weakness x2-3 months. States he had a fall last Friday in his house due to his LE weakness, but denies head trauma, loss of consciousness, seizures or other symptoms. States he was unable to get up himself after the fall and thus slept on the floor overnight until he was able to regain his strength to get up the next morning. Of note, he has a history of alcohol abuse where he drink about 1/2 point of liquor every other day (has done alcohol detox multiple times in the past at [facility] and [facility]). Last known alcoholic beverage was last night at 1/2 point of vodka. Denies chest pain, sob, abd, urinary/bowel symptoms. ER course was notable for: (1) VS wnl, Cr 1.8, UA neg, Alc 357 (2) IV LR, IV Thiamine/Folate, UA neg (3) Recent Travel: Denies PAST MEDICAL HISTORY: As per HPI PAST SURGICAL HISTORY: Tonsillectomy Social History: Smokin cigs/day, since 20s Alcohol: 1/2 pint of codka daily Drugs: Denies Allergies enalapril Allergy (Verified 03/23/20 04:09) Swelling lisinopril Allergy (Verified 03/23/20 04:09) Swelling HOME MEDICATIONS: Home Medications Medication Instructions Recorded Hydralazine HCl 10 mg PO DAILY 01/27/20 Apixaban [Eliquis] 5 mg PO BID 02/18/20 Isosorbide Mononitrate [Imdur -] 30 mg PO DAILY 02/18/20 Metoprolol Succinate 75 mg PO BID 03/23/20 REVIEW OF SYSTEMS As per HPI PHYSICAL EXAMINATION Vital Signs - 24 hr 03/23/20 03/23/20 02:21 06:17 Temperature 98.1 F Pulse Rate 75 Pulse Rate [ 61 Apical] Respiratory 15 16 Rate Blood Pressure 116/72 Blood Pressure 146/80 [Left Arm] O2 Sat by Pulse 100 98 Oximetry (%) GENERAL: Awake, alert, and fully oriented, in no acute distress. HEAD: Normal with no signs of trauma. EYES: Pupils equal, round and reactive to light, extraocular movements intact, sclera anicteric, conjunctiva clear. No lid lag. EARS, NOSE, THROAT: Ears normal, nares patent, oropharynx clear without exudates. Moist mucous membranes. NECK: Normal range of motion, supple without lymphadenopathy, JVD, or masses. LUNGS: Breath sounds equal, clear to auscultation bilaterally. No wheezes, and no crackles. No accessory muscle use. HEART: Regular rate and rhythm, normal S1 and S2 without murmur, rub or gallop. ABDOMEN: Soft, nontender, not distended, normoactive bowel sounds, no guarding, no rebound, no masses. No hepatomegaly or splenomegaly. MUSCULOSKELETAL: Normal range of motion at all joints. No bony deformities or tenderness. No CVA tenderness. UPPER EXTREMITIES: 2+ pulses, warm, well-perfused. No cyanosis. No clubbing. No peripheral edema. LOWER EXTREMITIES: 2+ pulses, warm, well-perfused. No calf tenderness. No peripheral edema. NEUROLOGICAL: Cranial nerves II-XII intact. Normal speech. Normal gait. PSYCHIATRIC: Cooperative. Good eye contact. Appropriate mood and affect. SKIN: Warm, dry, normal turgor, no rashes or lesions noted, normal capillary refill. Laboratory Results - last 24 hr 03/23/20 03/23/20 03/23/20 03:09 03:09 03:09 WBC 9.1 RBC 4.40 Hgb 12.0 Hct 37.8 MCV 85.9 MCH 27.2 MCHC 31.7 L RDW 26.2 H Plt Count 159 MPV 8.8 Absolute Neuts (auto) 6.0 Neutrophils % 66.5 Lymphocytes % 26.5 Monocytes % 5.9 Eosinophils % 0.6 Basophils % 0.5 D Nucleated RBC % 0 Hypochromia 1+ Platelet Estimate Adequate Anisocytosis 2+ Microcytosis 1+ Ovalocytes Occasional Stomatocytes Few Fragmented RBCs Few PT with INR 10.90 INR 0.92 PTT (Actin FS) 31.9 Sodium 134 L Potassium No Result Required. Chloride 100 Carbon Dioxide 24 Anion Gap 11 BUN 28.2 H Creatinine 1.8 H Est GFR (CKD-EPI)AfAm 43.84 Est GFR (CKD-EPI)NonAf 37.83 Random Glucose 128 H Calcium 8.1 L Phosphorus Magnesium Total Bilirubin 1.0 AST 118 H ALT 36 Alkaline Phosphatase 81 Creatine Kinase 730 H Creatine Kinase Index 1.3 CK-MB (CK-2) 10.0 H Troponin I 0.04 Total Protein 6.8 Albumin 3.2 L Urine Color Urine Appearance Urine pH Ur Specific [place] Urine Protein Urine Glucose (UA) Urine Ketones Urine Blood Urine Nitrite Urine Bilirubin Urine Urobilinogen Ur Leukocyte Esterase Urine WBC (Auto) Urine RBC (Auto) Urine Casts (Auto) U Epithel Cells (Auto) Urine Bacteria (Auto) Alcohol, Quantitative 03/23/20 03/23/20 03/23/20 03:09 05:05 06:08 WBC RBC Hgb Hct MCV MCH MCHC RDW Plt Count MPV Absolute Neuts (auto) Neutrophils % Lymphocytes % Monocytes % Eosinophils % Basophils % Nucleated RBC % Hypochromia Platelet Estimate Anisocytosis Microcytosis Ovalocytes Stomatocytes Fragmented RBCs PT with INR INR PTT (Actin FS) Sodium Potassium 4.3 Chloride Carbon Dioxide Anion Gap BUN Creatinine Est GFR (CKD-EPI)AfAm Est GFR (CKD-EPI)NonAf Random Glucose Calcium Phosphorus 3.2 Magnesium 1.7 L Total Bilirubin AST ALT Alkaline Phosphatase Creatine Kinase Creatine Kinase Index CK-MB (CK-2) Troponin I Total Protein Albumin Urine Color Yellow Urine Appearance Clear Urine pH 5.5 Ur Specific [place] 1.010 Urine Protein Trace Urine Glucose (UA) Negative Urine Ketones Negative Urine Blood Trace Urine Nitrite Negative Urine Bilirubin Negative Urine Urobilinogen 1.0 Ur Leukocyte Esterase Negative Urine WBC (Auto) 2 Urine RBC (Auto) 24 Urine Casts (Auto) 1 U Epithel Cells (Auto) 1 Urine Bacteria (Auto) 2 Alcohol, Quantitative 357.9 H 299.9 H ASSESSMENT/PLAN: 70M w/ pmhx of afib, HTN, alcohol abuse presents to the ED with complaints of progressively worsening b/l LE weakness x2-3 months admitted for ROSAS. #B/l LE Weakness, s/p fall; may be due to alcohol intoxication vs. electrolyte abnormalities; stroke ruled out -CT head/CT C-spine neg -PT ordered #ROSAS; likely prerenal. Cr. 1.8 -IV LR; cont IVf -trend BMP -Renal U/s ordered to r/o obstruction -Avoid nephrotoxic agents #Alcohol Abuse; Given significant hx of alcohol abuse, last drink last night, will start Librium protocol to avoid withdrawal symptoms. CIWA 8. +tremors, +n/v -Banana Bag, IV Thiamine/Folate given -Will cont with PO Thiamine/Folate/MVI -Alcohol cessation counseling #Hypomagnesemia; Mag Ox repleted. Trend Mag. #Afib; Rate-controlled. Cont home meds: Toprol, Hydralazine, Eliquis BID #HTN; Controlled. Cont home BP meds #Prophylaxis DVT: Cont home Eliquis #FEN -IVf -recheck lytes in AM (Mg) -Sodium-controlled diet Dispo -Admit to med-surg Pt signed out AMA by ED nurse prior to completion of medical treatment in hospital. He was made aware of risks and verbalized understanding. Per nursing note, pt was AAOx3 and able to ambulate on own. AMA paper signed. Visit type - Emergency Visit Emergency Visit: Yes ED Registration Date: 03/23/20 Care time: The patient presented to the Emergency Department on the above date and was hospitalized for further evaluation of their emergent condition. - New Patient This patient is new to me today: Yes Date on this admission: 03/23/20 - Critical Care Critical Care patient: No ATTENDING PHYSICIAN STATEMENT I saw and evaluated the patient. I reviewed the resident's note and discussed the case with the resident. I agree with the resident's findings and plan as documented. SUBJECTIVE: OBJECTIVE: ASSESSMENT AND PLAN:
--- NOTE | 2020-03-23 14:07 | EKG ---
Test Reason : Blood Pressure : / mmHG Vent. Rate : 105 BPM Atrial Rate : 110 BPM P-R Int : 000 ms QRS Dur : 104 ms QT Int : 390 ms P-R-T Axes : 000 024 -87 degrees QTc Int : 515 ms ATRIAL FIBRILLATION WITH RAPID VENTRICULAR RESPONSE VOLTAGE CRITERIA FOR LEFT VENTRICULAR HYPERTROPHY CANNOT RULE OUT SEPTAL INFARCT (CITED ON OR BEFORE 03-NOV-2019) ABNORMAL ECG WHEN COMPARED WITH ECG OF 17-FEB-2020 18:02, NO SIGNIFICANT CHANGE WAS FOUND Confirmed by AKIKO MCGRATH MD ([id number]) on 03/23/2020 2:06:30 PM Referred By: Confirmed By:AKIKO MCGRATH MD
--- NOTE | 2020-03-23 15:05 | DS ---
Physical Exam: SUBJECTIVE: Patient seen and examined at bedside. No acute events overnight. OBJECTIVE: Vital Signs Period Temp Pulse Resp BP Sys/[place] Pulse Ox Last 24 Hr 98.1 F 61-75 15-16 116-146/72-80 98-100 PHYSICAL EXAM AAOx3, NAD HEAD: AT/NC. HEART: Irregularly irregular rhythm, no murmurs noted LUNGS CTA B/L, No wheezes/rales noted ABD: soft, NT/ND, no fluid shift noted, +bs MSK: No peripheral edema noted NEURO: mild tremor in hands R>L LABS Laboratory Results - last 24 hr 03/23/20 03/23/20 03/23/20 03:09 03:09 03:09 WBC 9.1 RBC 4.40 Hgb 12.0 Hct 37.8 MCV 85.9 MCH 27.2 MCHC 31.7 L RDW 26.2 H Plt Count 159 MPV 8.8 Absolute Neuts (auto) 6.0 Neutrophils % 66.5 Lymphocytes % 26.5 Monocytes % 5.9 Eosinophils % 0.6 Basophils % 0.5 D Nucleated RBC % 0 Hypochromia 1+ Platelet Estimate Adequate Anisocytosis 2+ Microcytosis 1+ Ovalocytes Occasional Stomatocytes Few Fragmented RBCs Few PT with INR 10.90 INR 0.92 PTT (Actin FS) 31.9 Sodium 134 L Potassium No Result Required. Chloride 100 Carbon Dioxide 24 Anion Gap 11 BUN 28.2 H Creatinine 1.8 H Est GFR (CKD-EPI)AfAm 43.84 Est GFR (CKD-EPI)NonAf 37.83 Random Glucose 128 H Calcium 8.1 L Phosphorus Magnesium Total Bilirubin 1.0 AST 118 H ALT 36 Alkaline Phosphatase 81 Creatine Kinase 730 H Creatine Kinase Index 1.3 CK-MB (CK-2) 10.0 H Troponin I 0.04 Total Protein 6.8 Albumin 3.2 L Urine Color Urine Appearance Urine pH Ur Specific [place] Urine Protein Urine Glucose (UA) Urine Ketones Urine Blood Urine Nitrite Urine Bilirubin Urine Urobilinogen Ur Leukocyte Esterase Urine WBC (Auto) Urine RBC (Auto) Urine Casts (Auto) U Epithel Cells (Auto) Urine Bacteria (Auto) Alcohol, Quantitative 03/23/20 03/23/20 03/23/20 03:09 05:05 06:08 WBC RBC Hgb Hct MCV MCH MCHC RDW Plt Count MPV Absolute Neuts (auto) Neutrophils % Lymphocytes % Monocytes % Eosinophils % Basophils % Nucleated RBC % Hypochromia Platelet Estimate Anisocytosis Microcytosis Ovalocytes Stomatocytes Fragmented RBCs PT with INR INR PTT (Actin FS) Sodium Potassium 4.3 Chloride Carbon Dioxide Anion Gap BUN Creatinine Est GFR (CKD-EPI)AfAm Est GFR (CKD-EPI)NonAf Random Glucose Calcium Phosphorus 3.2 Magnesium 1.7 L Total Bilirubin AST ALT Alkaline Phosphatase Creatine Kinase Creatine Kinase Index CK-MB (CK-2) Troponin I Total Protein Albumin Urine Color Yellow Urine Appearance Clear Urine pH 5.5 Ur Specific [place] 1.010 Urine Protein Trace Urine Glucose (UA) Negative Urine Ketones Negative Urine Blood Trace Urine Nitrite Negative Urine Bilirubin Negative Urine Urobilinogen 1.0 Ur Leukocyte Esterase Negative Urine WBC (Auto) 2 Urine RBC (Auto) 24 Urine Casts (Auto) 1 U Epithel Cells (Auto) 1 Urine Bacteria (Auto) 2 Alcohol, Quantitative 357.9 H 299.9 H HOSPITAL COURSE: Date of Admission:03/23/20 70M w/ pmhx of afib, HTN, alcohol abuse presents to the ED with complaints of progressively worsening b/l LE weakness x2-3 months s/p fall and admitted for ROSAS. In the ED, VS wnl, labs showed Cr 1.8 (baseline normal) as well as low Mg. CT head and CT C-spine did not show acute changes. Pt was given IVf. Given significant history of alcohol abuse (CIWA 8), pt was started on Librium protocol for alcohol detox. He was given a banana bag/MVI/Thiamine/Folate. Mag was repleted. Renal u/s was unremarkable. Per ED nurse, pt left AMA prior to completion of medical treatment and was made aware of risks in doing so and verbalized understanding. Date of Discharge: 03/23/20 Minutes to complete discharge: 37 Discharge Summary Problems reviewed: Yes Reason For Visit: ACUTE KIDNEY INJURY,ALCOHOL ABUSE,WEAKNESS - Instructions Disposition: AGAINST MEDICAL ADVICE - Home Medications Comprehensive Discharge Medication List: Ambulatory Orders Hydralazine HCl 10 mg PO DAILY 01/27/20 Apixaban [Eliquis] 5 mg PO BID 02/18/20 Isosorbide Mononitrate [Imdur -] 30 mg PO DAILY 02/18/20 Metoprolol Succinate 75 mg PO BID 07/02/20 This patient is new to me today: No Emergency Visit: Yes ED Registration Date: 03/23/20 Care time: The patient presented to the Emergency Department on the above date and was hospitalized for further evaluation of their emergent condition. Critical Care patient: No - Discharge Referral Referred to [facility] Med P.C.: No ATTENDING PHYSICIAN STATEMENT I saw and evaluated the patient. I reviewed the resident's note and discussed the case with the resident. I agree with the resident's findings and plan as documented. SUBJECTIVE: OBJECTIVE: ASSESSMENT AND PLAN:
[2020-03-24] MEDS ORDERED: FOLIC ACID 1 MG TABLET (FP) PO SCH (10:00)
[2020-03-24] MEDS ORDERED: THIAMINE HCL 100 MG TABLET (FP) PO SCH ×2 (10:00)
[2020-03-25] MEDS ORDERED: chlordiazePOXIDE 5 MG CAPSULE PO SCH (05:00)
[2020-03-26] MEDS ORDERED: chlordiazePOXIDE HCL 10 MG CAPSULE PO PRN
[2020-03-26] MEDS ORDERED: chlordiazePOXIDE HCL 10 MG CAPSULE PO SCH (05:00)
[2020-03-27] MEDS ORDERED: chlordiazePOXIDE HCL 10 MG CAPSULE PO ONE (05:00)
== END 2020-03-23 10:15 | disposition left against medical advice (07) | DRG 683 ==
LOC: JER 02:21 → JERBED 04:30
PROVIDERS: ADMIT Internal Medicine; ATTEND Internal Medicine
DX: N17.9 Acute kidney failure, unspecified (principal); F10.230 Alcohol dependence with withdrawal, uncomplicated; E83.42 Hypomagnesemia; E86.0 Dehydration; I10 Essential (primary) hypertension; J44.9 Chronic obstructive pulmonary disease, unspecified; E78.5 Hyperlipidemia, unspecified; I48.91 Unspecified atrial fibrillation; Z79.01 Long term (current) use of anticoagulants; F17.210 Nicotine dependence, cigarettes, uncomplicated
CPT/HCPCS: 36415; 70450-TC; 71045-TC-FY; 72125-TC; 76775-TC; 80053; 80307; 81003; 82550; 82553; 83735; 84100; 84132; 84484; 85025; 85610; 85730; 87086; 93005; 93010; 99285-25; U0003

== ENCOUNTER 2020-03-31 10:40 | Inpatient (IN) | payer OTHER ==
--- NOTE | 2020-03-31 11:12 | PDOC ---
History of Present Illness - General Chief Complaint: Pain Stated Complaint: WEAKNESS History Source: Patient Exam Limitations: No Limitations - History of Present Illness Initial Comments: 03/31/20 11:12 70M w/ pmhx of afib, HTN, alcohol abuse, frequent falls, med noncompliant presenting w 3wk intermittent BLE pain/weakness worse w walking. Currently doesnt have any leg pain on initial eval but complains that he frequently falls unwitnessed at home where he lives alone and drinks alcohol . Drinks 1/2 pint liquor every night, last drink this morning. Doesnt take any meds or followed up w hilaria Quinn Was evaluated at [facility] 2d ago, negative XR/US/CT head, told to take tylenol. Didn't fall down within the last 2d. Denies leg weakness, fever, headache, n/v, tremors, chest/abd pain, bowel/urinary incontinence. Past History - Medical History Allergies/Adverse Reactions: Allergies Allergy/AdvReac Type Severity Reaction Status Date / Time enalapril Allergy Swelling Verified 03/31/20 10:58 lisinopril Allergy Swelling Verified 03/31/20 10:58 Home Medications: Ambulatory Orders Hydralazine HCl 10 mg PO DAILY 01/27/20 Apixaban [Eliquis] 5 mg PO BID 02/18/20 Metoprolol Succinate 75 mg PO BID 03/23/20 Anemia: No Asthma: No Cancer: No Cardiac Disorders: Yes (Afib, LHC last year) CVA: No COPD: Yes CHF: No DVT: No (taking blood thinners) Dementia: No Diabetes: No Dialysis: No GI Disorders: No Disorders: No HTN: Yes Hypercholesterolemia: Yes Kidney Stones: No Liver Disease: No Psychiatric Problems: Yes (substance abuse) Seizures: Yes (09/2018 hospitalization) Thyroid Disease: No Lung CA: No - Surgical History Abdominal Surgery: No Appendectomy: No Cardiac Surgery: No Cholecystectomy: No Gastric Stapling: No GI Surgery: No Lung Surgery: No Neurologic Surgery: No - Immunization History Immunization Up to Date: Yes - Psycho-Social/Smoking History Smoking History: Current every day smoker Have you smoked in the past 12 months: Yes Number of Cigarettes Smoked Daily: 3 Information on smoking cessation initiated: Yes 'Breaking Loose' booklet given: 01/27/20 - Substance Abuse Hx (Audit-C & DAST Scrn) How often the patient has a drink containing alcohol: 4 0r more times/wk Number of drinks the patient has on a typical day: 3 or 4 How often the patient has six or more drinks on one occasion: Daily or almost daily Score: In Men: 4 or > Positive; In Women: 3 or > Positive: 9 Screen Result (Pos requires Nsg. Audit-10AR): Positive Review of Systems - Review of Systems Constitutional: No: Chills, Fever HEENTM: No: Eye Pain, Nose Pain Respiratory: No: Cough, Shortness of Breath Cardiac (ROS): No: Chest Pain, Palpitations ABD/GI: No: Abdominal Distended, Constipated, Diarrhea, Nausea, Vomiting : No: Burning, Flank Pain Musculoskeletal: No: Back Pain, Joint Pain Integumentary: No: Bruising, Flushing Neurological: No: Headache, Seizure Psychiatric: No: Anxiety, Depression Endocrine: No: Intolerance to Cold, Intolerance to Heat Hematologic/Lymphatic: No: Anemia, Blood Clots *Physical Exam - Vital Signs Last Vital Signs Temp Pulse Resp BP Pulse Ox 98.4 F 95 H 18 112/70 94 L 03/31/20 10:50 03/31/20 10:50 03/31/20 10:50 03/31/20 10:50 03/31/20 10:50 - Physical Exam General Appearance: Yes: Nourished, Appropriately Dressed, Mild Distress HEENT: positive: EOMI, MARY, Normal Voice. negative: Scleral Icterus (R), Sc leral Icterus (L) Neck: positive: Supple. negative: Tender, Rigid Respiratory/Chest: positive: Lungs Clear, Normal Breath Sounds. negative: Chest Tender, Respiratory Distress Cardiovascular: positive: Regular Rate, S1, S2, Irregular. negative: Murmur Vascular Pulses: Dorsalis-Pedis (R): 2+, Doralis-Pedis (L): 2+ Gastrointestinal/Abdominal: positive: Normal Bowel Sounds, Flat, Soft. negative: Tender, Organomegaly Extremity: positive: Other (5/5 BLE strength, intact sensation to touch, warm skin). 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 negative: Normal Mood/Affect (slowed speech), Sensory Deficit, Confused, Disoriented ED Treatment Course - LABORATORY CBC & Chemistry Diagram: 03/31/20 11:40 03/31/20 11:40 Medical Decision Making - Medical Decision Making 03/31/20 11:31 Head/c-spine - no acute bleed/infarct/fx EKG - a fib, LVH, HR 95, QTc 482, no ST changes K 3.3 --- 70M w/ pmhx of afib, HTN, alcohol abuse, frequent falls, med noncompliant presenting w 3wk intermittent BLE pain worse w walking. BLE pain/weakness likely d/t chronic alcohol use - intoxication vs B12 deficiency. BLE neurovascular intact. Also has ROSAS mildly improved from 03/23 when he left AMA (1.5 from 1.8). Low concern for DVT (not swollen) vs arterial occlusion (good pulses) vs withdrawal (no tremors) vs head bleed/infarct/fx Given 1L banana bag, KCl Admit m/s hospitalist for BLE pain/weakness, alcohol intoxication, ROSAS, unsafe discharge d/t unwitnessed frequent falls at home No PCP Discharge - Discharge Information Problems reviewed: Yes Clinical Impression/Diagnosis: Leg pain, bilateral, ROSAS (acute kidney injury) Alcohol intoxication Qualifiers: Complication of substance-induced condition: uncomplicated Qualified Code(s): F10.920 - Alcohol use, unspecified with intoxication, uncomplicated Condition: Improved - Follow up/Referral Referrals: Ezio Sabillon [Primary Care Provider] - - Patient Discharge Instructions - Post Discharge Activity
[2020-03-31] MEDS ORDERED: FOLIC ACID INJECTION - 1 MG, THIAMINE HCL 100 MG, MULTIVIT INJECTION ADULT 10 ML in SOD... IVPB ONE (11:28)
[2020-03-31 12:09] LABS: BASO % 0.5 % (0-2.0); EOS % 0.8 % (0-4.5); HEMATOCRIT 39.3 % (35.4-49); HEMOGLOBIN 12.1 GM/dL (11.7-16.9); LYMPH % 33.2 % (8-40); MCH 26.7 pg (25.7-33.7); MCHC 30.7 g/dl (32.0-35.9); MEAN PLT VOLUME 8.3 fl (7.5-11.1); MONO % 8.7 % (3.8-10.2); NEUT % 56.8 % (42.8-82.8); PLATELET COUNT 146 K/MM3 (134-434); RBC 4.51 M/mm3 (4.00-5.60); RDW 28.4 % (11.9-15.9); WHITE BLOOD COUNT 6.9 K/mm3 (4.0-10.0)
[2020-03-31 12:19] LABS: INR 0.89 (0.83-1.09); PROTHROMBIN TIME (PATIENT) 10.5 SEC (9.7-13.0)
[2020-03-31 12:22] LABS: ACTIVATED PTT 30.1 SECONDS (25.2-36.5)
[2020-03-31 12:37] LABS: ALBUMIN 3.6 g/dl (3.4-5.0); BILIRUBIN,TOTAL 1.1 mg/dL (0.2-1); CALCIUM 8.5 mg/dL (8.5-10.1); CREATININE 1.5 mg/dL (0.55-1.3); POTASSIUM 3.3 mmol/L (3.5-5.1); TOT PROT 6.3 g/dl (6.4-8.2)
[2020-03-31 12:57] LABS: ANISOCYTOSIS 2+; MACROCYTOSIS 2+; OVALOCYTE 2+; PLATELET ESTIMATE DECREASED
--- NOTE | 2020-03-31 13:00 | PDOC ---
Documentation entered by Nanette Wall SCRIBE, acting as scribe for Rishabh Mac MD. Rishabh Mac MD: This documentation has been prepared by the [facility] Brenda, SCRIBE, under my direction and personally reviewed by me in its entirety. I confirm that the documentation accurately reflects all work, treatment, procedures, and medical decision making performed by me. Attending Attestation - Resident Resident Name: UmaLuke - ED Attending Attestation I have performed the following: I have examined & evaluated the patient, The case was reviewed & discussed with the resident, I agree w/resident's findings & plan, Exceptions are as noted - HPI HPI: 03/31/20 13:00 70 M with h/o afib, HTN, ETOH abuse, presenting to ED with progressively worsening BLE weakness and instability. Pt notes that he has fallen multiple times. Most recent fall was 2 days ago and was evaluated at [facility]. Had negative imaging and DC'ed home. However, he notes that he feels unsafe at home and is afraid he is going to fall again. Denies any falls in last 48 hours. Endorses drinking every night. No unilateral weakness/numbness. - Physicial Exam PE: 03/31/20 13:10 See resident exam - Medical Decision Making 03/31/20 13:10 70 M with weakness, frequent falls. Possible polyneuropathy 2/2 ETOH or wernicke encephalopathy. No focal neuro deficits to suggest CVA. - Labs - CT head - Admit Discharge - Discharge Information Problems reviewed: Yes Clinical Impression/Diagnosis: Leg pain, bilateral, ROSAS (acute kidney injury) Alcohol intoxication Qualifiers: Complication of substance-induced condition: uncomplicated Qualified Code(s): F10.920 - Alcohol use, unspecified with intoxication, uncomplicated Condition: Improved - Follow up/Referral - Patient Discharge Instructions - Post Discharge Activity
[2020-03-31] MEDS ORDERED: POTASSIUM CHLORIDE ORAL LIQUID 20 MEQ/15 ML PO ONE (13:26)
[2020-03-31] MEDS ORDERED: POTASSIUM CHLORIDE ORAL LIQUID 20 MEQ/15 ML ONE (13:30)
[2020-03-31] MEDS ORDERED: LORazepam 2 MG/ML SDV VIAL IVPUSH PRN (15:57)
--- NOTE | 2020-03-31 15:57 | HP ---
CHIEF COMPLAINT:pain in lower extremities PCP:Dr. Sabillon HISTORY OF PRESENT ILLNESS: 70 yo M PMH afib( on eliquis), HTN, alcohol abuse presents presents to ED for B/L leg pain and scapular pain. he states that he fell 3 days ago and since then has been having pain when he walks. he states it was unwitnessed. he denies hitting his head. he denies LOC. he states that he drinks 1/2 pint vodka every night but wants to quit. last drink was last night around 10 pm. he states that he is usually tremulous but 1 y ago had a seizure, was supposed to be on meds but has not been taking. he states he used to see Dr. Fitzgerald. Was last admitted on 03/23 but left AMA, pt states he does not remember why he left AMA ER course was notable for: (1)CT head negative for acute pathology (2)Cspine- arthritis (3)Cr 1.5 Social History: Smoking:smokes 3 cigs/day, since 20s Alcohol:1/2 pint hard liquor daily Drugs: Allergies enalapril Allergy (Verified 03/31/20 10:58) Swelling lisinopril Allergy (Verified 03/31/20 10:58) Swelling HOME MEDICATIONS: Home Medications Medication Instructions Recorded Hydralazine HCl 10 mg PO DAILY 01/27/20 Apixaban [Eliquis] 5 mg PO BID 02/18/20 Metoprolol Succinate 75 mg PO BID 03/23/20 PHYSICAL EXAMINATION Vital Signs - 24 hr 03/31/20 03/31/20 03/31/20 10:50 13:02 14:44 Temperature 98.4 F Pulse Rate 95 H Pulse Rate [ 82 103 H Left Radial] Respiratory 18 14 18 Rate Blood Pressure 112/70 Blood Pressure 129/95 118/93 [Right Arm] O2 Sat by Pulse 94 L 100 100 Oximetry (%) GENERAL: Awake, alert, and fully oriented, in no acute distress. HEAD: Normal with no signs of trauma. EYES: Pupils equal, round and reactive to light, extraocular movements intact, sclera anicteric LUNGS: Breath sounds equal, clear to auscultation bilaterally. No accessory muscle use. HEART: irregular rate and rhythm, normal S1 and S2 ABDOMEN: Soft, nontender, not distended, normoactive bowel sounds, no guarding, no rebound MUSCULOSKELETAL: No CVA tenderness. UPPER EXTREMITIES: 2+ pulses, warm, well-perfused. No cyanosis. No clubbing. No peripheral edema. LOWER EXTREMITIES: 2+ pulses, warm, well-perfused. No calf tenderness. No peripheral edema. abrasion on RLE on skin near knee NEUROLOGICAL: Cranial nerves II-XII intact. Normal speech. PSYCHIATRIC: Cooperative. Good eye contact. Appropriate mood and affect. Laboratory Results - last 24 hr 03/31/20 03/31/20 03/31/20 11:40 11:40 11:40 WBC 6.9 RBC 4.51 Hgb 12.1 Hct 39.3 MCV 87.0 MCH 26.7 MCHC 30.7 L RDW 28.4 H Plt Count 146 MPV 8.3 Absolute Neuts (auto) 3.9 Neutrophils % 56.8 Lymphocytes % 33.2 D Monocytes % 8.7 Eosinophils % 0.8 Basophils % 0.5 Nucleated RBC % 0 Hypochromia 1+ Platelet Estimate Decreased Polychromasia 1+ Poikilocytosis 2+ Anisocytosis 2+ Microcytosis 2+ Macrocytosis 2+ Ovalocytes 2+ PT with INR 10.50 INR 0.89 PTT (Actin FS) 30.1 Sodium 143 Potassium 3.3 L Chloride 104 Carbon Dioxide 26 Anion Gap 13 BUN 19.0 H Creatinine 1.5 H Est GFR (CKD-EPI)AfAm 54.66 Est GFR (CKD-EPI)NonAf 47.16 Random Glucose 100 Calcium 8.5 Total Bilirubin 1.1 H AST 125 H ALT 52 Alkaline Phosphatase 75 Total Protein 6.3 L Albumin 3.6 ASSESSMENT/PLAN: 70 yo M PMH of AFib ( eliquis),DM HTN, COPD ( no home O2), HLD, Alcohol abuse presents to ED for B/L leg pain and scapular pain. Pt is admitted for acute alcohol withdrawal Acute Alcohol Withdrawal - will start Librium protocol - Dr. Donato consulted - IVF, Multivitamin, thiamine - seizure precautions Hx of frequent falls likely 2/2 Alcoholism - CT head negative - C spine showing arthritis - CXR negative ROSAS vs CKD - Cr improving 1.5 from 1.8 - cont IVF - Renal U/s from 03/23/2020 showing small R renal cyst- otherwise unremarkable Afib - c/w eliquis - rate controlled with metoprolol DM - will get A1C - BGM, ISS HTN - cont home meds HLD - will get lipid panel DVT ppx: Eliquis Admit to med/surg ATTENDING PHYSICIAN STATEMENT I saw and evaluated the patient. I reviewed the resident's note and discussed the case with the resident. I agree with the resident's findings and plan as documented. SUBJECTIVE: OBJECTIVE: ASSESSMENT AND PLAN:
--- NOTE | 2020-03-31 16:07 | PN ---
Teaching Attending Note Name of Resident: Debora Zambrano ATTENDING PHYSICIAN STATEMENT I saw and evaluated the patient. I reviewed the resident's note and discussed the case with the resident. I agree with the resident's findings and plan as documented. SUBJECTIVE: 70 year old male with known history of atrial fibrillatioin (on Eliquis), c urrent smoker, heavy alcohol use/alcohol dependence, who presents to the ED complaining of lower extremity pain most severe when he walks. He admits to having fallen about 3 days ago; He denied LOC. He admits to drinking alcohol heavily every day. Last drink about 10 pm last night OBJECTIVE: Gen 70 year old AAM who appears appropriate for stated age and not in any distress HEENT: EOMI, no oral lesions CVS: irregular rate and rhythm, no murmurs abd; soft, palpable liver edge about 3-4 fingerbreadths below the right costal border; nontender, nondistended, +BS Ext; no edema, feet are warm and dry. He reports pain on the right calf which appears nondistended, no soft tissue swelling. 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 No flapping tremors ASSESSMENT AND PLAN: 1. Right lower ext pain secondary to contusion/fall from alcohol withdrawal - cautious use of pain medications - PT eval - cont IVF, IV vitamins, IV thiamine and folic acid - cont assess for any neurologic changes - replete potassium - check magnesium - cont close monitoring for evidence of withdrawal - prn anxiolytics for withdrawal 2. Afib - resume eliquis - PT evaluation - cardiac monitoring 3. DVT prophylaxis - resume eliquis (#2)
[2020-03-31 18:33] VITALS: BMI 19.9
--- NOTE | 2020-03-31 19:35 | CONSULT ---
Consult Detox [facility] Reason for Current Admission/Consult: Alcohol Dependence Referred by:: Debora Zambrano - History History of Present Illness: This is a 70 y/o man with a PMHx of HTN, HLD, Afib (on Eliquis), COPD (no O2), Alcohol Abuse, Chronic Hypokalemia, Nicotine Dependence, recent admission 01/25- 01/27 ([facility]) for Alcohol Abuse, Prolonged QT. He presented to the ED on another occasion in Jan, 2020 with SOB x 3 weeks with progressive DENNISON x today, watery NB diarrhea x 2weeks, b/l lower extremities and thigh pain. Patient reports drinking 1/2 pint of Vodka today. He presents to ED this time for B/L leg pain and scapular pain. He states that he fell 3 days ago and since then has been having pain when he walks. He states it was unwitnessed. He denies hitting his head. He denies LOC. He states that he drinks 1/2 pint vodka every night but wants to quit. last drink was last night around 10 pm. he states that he is usually tremulous but 1 y ago had a seizure, was supposed to be on meds but has not been taking. He is known to [facility] but has failed to follow up on other occasions for detox and for outpatient MAT. - History Source History Provided By: Medical Record Limitations to Obtaining History: No Limitations - Alcohol/Substance Use Hx Alcohol Use: Yes Hx Substance Use: Yes Hx Substance Use Treatment: Yes (failed detox with early ) - Current Drug/Alcohol Use Alcohol Route: Oral Frequency: Daily Amount used: 1/2 pint vodka Date of Last Use: 03/30/20 - Past Medical History Cardio/Vascular: Yes: AFIB, HTN, Hyperlipdemia Pulmonary: Yes: COPD. No: O2 Dependent Psych: Yes: Addictions (Alcohol Abuse) - Past Surgical History Past Surgical History: Yes: Tonsillectomy - Significant Medical Findings: As oer resident: Vital Signs - 24 hr 03/31/20 03/31/20 03/31/20 10:50 13:02 14:44 Temperature 98.4 F Pulse Rate 95 H Pulse Rate [ 82 103 H Left Radial] Respiratory 18 14 18 Rate Blood Pressure 112/70 Blood Pressure 129/95 118/93 [Right Arm] O2 Sat by Pulse 94 L 100 100 Oximetry (%) GENERAL: Awake, alert, and fully oriented, in no acute distress. HEAD: Normal with no signs of trauma. EYES: Pupils equal, round and reactive to light, extraocular movements intact, sclera anicteric, conjunctiva clear. No lid lag. LUNGS: Breath sounds equal, clear to auscultation bilaterally. No accessory muscle use. HEART: irregular rate and rhythm, normal S1 and S2 ABDOMEN: Soft, nontender, not distended, normoactive bowel sounds, no guarding, no rebound MUSCULOSKELETAL: No CVA tenderness. UPPER EXTREMITIES: 2+ pulses, warm, well-perfused. No cyanosis. No clubbing. No peripheral edema. LOWER EXTREMITIES: 2+ pulses, warm, well-perfused. No calf tenderness. No peripheral edema. abrasion on RLE near knee NEUROLOGICAL: Cranial nerves II-XII intact. Normal speech. PSYCHIATRIC: Cooperative. Good eye contact. Appropriate mood and affect. Laboratory Results - last 24 hr 03/31/20 03/31/20 03/31/20 11:40 11:40 11:40 WBC 6.9 RBC 4.51 Hgb 12.1 Hct 39.3 MCV 87.0 MCH 26.7 MCHC 30.7 L RDW 28.4 H Plt Count 146 MPV 8.3 Absolute Neuts (auto) 3.9 Neutrophils % 56.8 Lymphocytes % 33.2 D Monocytes % 8.7 Eosinophils % 0.8 Basophils % 0.5 Nucleated RBC % 0 Hypochromia 1+ Platelet Estimate Decreased Polychromasia 1+ Poikilocytosis 2+ Anisocytosis 2+ Microcytosis 2+ Macrocytosis 2+ Ovalocytes 2+ PT with INR 10.50 INR 0.89 PTT (Actin FS) 30.1 Sodium 143 Potassium 3.3 L Chloride 104 Carbon Dioxide 26 Anion Gap 13 BUN 19.0 H Creatinine 1.5 H Est GFR (CKD-EPI)AfAm 54.66 Est GFR (CKD-EPI)NonAf 47.16 Random Glucose 100 Calcium 8.5 Total Bilirubin 1.1 H AST 125 H ALT 52 Alkaline Phosphatase 75 Total Protein 6.3 L Albumin 3.6 Assessment Plan - Plan Plan: 1. Alcohol Dependence: This patient has had a consult in prior admission 0f 02/18/20 after having walked out of Detox AMA earlier that month. Detox for alcohol was offered but he did not wish or feel that alcohol use was a dependence and did not want to avail himself of detox services at [facility]. He actually walked in once to [facility] in August 2019 but left prior to being evaluated. He's had multiple ER visits for various injuries, so it is apparent that he has multiple alcoholic intoxications to the point of falling and self- injury. Also, since he does have alcoholic hepatitis and maybe approaching cirrhosis, I would get a GI consult for this patient for futher management of his liver as he continues to drink to excess. It would be recommended that he do an Ativan Detox protocol with comfort meds and that can be started by inpatient provider at [facility], if he starts to exhibit a CIWA>12. Patient can be offered detox services and rehab as in the past. When medically he is stable he can be transferred to [facility] to complete detox; or if he finishes detox at [facility], he can be transferred to [facility] for Rehab, as he lacks judgment and insight into his substance use disorder and needs counseling services and education into his disorder. Dr. Donato - Medication Detox Regimen/Protocol: Ativan
--- NOTE | 2020-03-31 19:49 | HP ---
CHIEF COMPLAINT: weakness/pain in LE PCP: HISTORY OF PRESENT ILLNESS: 70 YO M PMH afib, HTN, and alcohol use disorder p/w intermittent b/l LE & UE pain/weakness that worsens with activity since December. Pt endorses that the pain is worse in his LE than the UE. Pain is typically 8/10, cramping, without radiation. His weakness has been associated with frequent falls. Many of theses falls are unwitnessed because the pt lives alone. The first falling episode occurred during a walk to the store to purchase cigarettes, and the patient's legs felt week and buckled suddenly. Pt denies LOC, dizziness, lightheadness, loss of sensation, bowel/bladder incontinence, or aura during these falling episodes. He endorses SOB associated w/ some of these falling episodes. Pt last fell a week ago. He went to [facility] 2 days ago and US, XR, CTH were found to be negative, and the pt was sent home on Tylenol. Pt drinks 1/2 pint of etoh a at night to help him sleep. His last drink was at midnight today. ER course was notable for: (1) K+ low (2) Cr 1.5. Improvement from Cr of 1.8 from last admission on 03/23 Recent Travel: denies PAST MEDICAL HISTORY: afib (last took Eliquis 3 days ago) HTN (last took Eliquis 3 days ago) alcohol use disorder (last drink) PAST SURGICAL HISTORY: denies Social History: Smokin cigarettes/day Alcohol: 1/2 a pint of alcohol almost daily to help him sleep at night Drugs: denies Family history: Brother: DM Father: "heart problems" paternal grandfather: "heart problems" requiring pacemaker grandma: Hodgkin's Lymphoma Allergies enalapril Allergy (Verified 03/31/20 10:58) Swelling lisinopril Allergy (Verified 03/31/20 10:58) Swelling HOME MEDICATIONS: Home Medications Medication Instructions Recorded Hydralazine HCl 10 mg PO DAILY 01/27/20 Apixaban [Eliquis] 5 mg PO BID 02/18/20 Metoprolol Succinate 75 mg PO BID 03/23/20 REVIEW OF SYSTEMS CONSTITUTIONAL: generalized weakness Absent: fever, chills, diaphoresis, , malaise, loss of appetite, weight change HEENT: Absent: rhinorrhea, nasal congestion, throat pain, throat swelling, difficulty swallowing, mouth swelling, ear pain, eye pain, visual changes CARDIOVASCULAR: Absent: chest pain, syncope, palpitations, irregular heart rate, lightheadedness, peripheral edema RESPIRATORY: Absent: cough, shortness of breath, dyspnea with exertion, orthopnea, wheezing, stridor, hemoptysis GASTROINTESTINAL: Absent: abdominal pain, abdominal distension, nausea, vomiting, diarrhea, constipation, melena, hematochezia GENITOURINARY: Absent: dysuria, frequency, urgency, hesitancy, hematuria, flank pain, genital pain MUSCULOSKELETAL: myalgia, back pain Absent: arthralgia, joint swelling, neck pain SKIN: Absent: rash, itching, pallor HEMATOLOGIC/IMMUNOLOGIC: Absent: easy bleeding, easy bruising, lymphadenopathy, frequent infections ENDOCRINE: Absent: unexplained weight gain, unexplained weight loss, heat intolerance, cold intolerance NEUROLOGIC: Absent: headache, focal weakness or paresthesias, dizziness, unsteady gait, seizure, mental status changes, bladder or bowel incontinence PSYCHIATRIC: Absent: anxiety, depression, suicidal or homicidal ideation, hallucinations. PHYSICAL EXAMINATION Vital Signs - 24 hr 03/31/20 03/31/20 03/31/20 10:50 13:02 14:44 Temperature 98.4 F Pulse Rate 95 H Pulse Rate [ 82 103 H Left Radial] Respiratory 18 14 18 Rate Blood Pressure 112/70 Blood Pressure 129/95 118/93 [Right Arm] O2 Sat by Pulse 94 L 100 100 Oximetry (%) 03/31/20 03/31/20 03/31/20 16:25 18:01 18:23 Temperature 98.2 F 98.6 F Pulse Rate 113 H Pulse Rate [ 91 H 67 Left Radial] Respiratory 14 16 20 Rate Blood Pressure 117/99 Blood Pressure 130/79 158/90 [Right Arm] O2 Sat by Pulse 93 L 98 Oximetry (%) GENERAL: AAOX3 (Shady Yao, [facility], 03/31/2020). NAD HEAD: Normal with no signs of trauma. EYES: extraocular movements intact, sclera anicteric, conjunctiva clear. No lid lag. EARS, NOSE, THROAT: Ears normal, nares patent, oropharynx clear without exudates. Moist mucous membranes. NECK: Normal range of motion, supple without lymphadenopathy, JVD, or masses. LUNGS: Breath sounds equal, clear to auscultation bilaterally. No wheezes, and no crackles. No accessory muscle use. HEART: Regular rate and rhythm, normal S1 and S2 without murmur, rub or gallop. ABDOMEN: Soft, nontender, not distended, normoactive bowel sounds, no guarding, no rebound, no masses. Hepatomegaly MUSCULOSKELETAL: Normal range of motion at all joints. No bony deformities or tenderness. No CVA tenderness. UPPER EXTREMITIES: 2+ pulses, warm, well-perfused. No cyanosis. No clubbing. No peripheral edema. b/l hands hyperpigmented, Strength 5/5. Sensation intact, NO tremors LOWER EXTREMITIES: 2+ pulses, warm, well-perfused. No calf tenderness. No peripheral edema. rigidity, L foot scab on plantar aspect, healed wounds on R ayon. Strength 5/5. Sensation intact. DP 2+, TP 2+ b/l NEUROLOGICAL: Cranial nerves II-XII intact. Normal speech. Normal gait. PSYCHIATRIC: Cooperative. Good eye contact. Appropriate mood and affect. SKIN: Warm, dry, normal turgor, no rashes or lesions noted, normal capillary refill. Laboratory Results - last 24 hr 03/31/20 03/31/20 03/31/20 11:40 11:40 11:40 WBC 6.9 RBC 4.51 Hgb 12.1 Hct 39.3 MCV 87.0 MCH 26.7 MCHC 30.7 L RDW 28.4 H Plt Count 146 MPV 8.3 Absolute Neuts (auto) 3.9 Neutrophils % 56.8 Lymphocytes % 33.2 D Monocytes % 8.7 Eosinophils % 0.8 Basophils % 0.5 Nucleated RBC % 0 Hypochromia 1+ Platelet Estimate Decreased Polychromasia 1+ Poikilocytosis 2+ Anisocytosis 2+ Microcytosis 2+ Macrocytosis 2+ Ovalocytes 2+ PT with INR 10.50 INR 0.89 PTT (Actin FS) 30.1 Sodium 143 Potassium 3.3 L Chloride 104 Carbon Dioxide 26 Anion Gap 13 BUN 19.0 H Creatinine 1.5 H Est GFR (CKD-EPI)AfAm 54.66 Est GFR (CKD-EPI)NonAf 47.16 POC Glucometer Random Glucose 100 Calcium 8.5 Total Bilirubin 1.1 H AST 125 H ALT 52 Alkaline Phosphatase 75 Total Protein 6.3 L Albumin 3.6 03/31/20 16:34 WBC RBC Hgb Hct MCV MCH MCHC RDW Plt Count MPV Absolute Neuts (auto) Neutrophils % Lymphocytes % Monocytes % Eosinophils % Basophils % Nucleated RBC % Hypochromia Platelet Estimate Polychromasia Poikilocytosis Anisocytosis Microcytosis Macrocytosis Ovalocytes PT with INR INR PTT (Actin FS) Sodium Potassium Chloride Carbon Dioxide Anion Gap BUN Creatinine Est GFR (CKD-EPI)AfAm Est GFR (CKD-EPI)NonAf POC Glucometer 74 Random Glucose Calcium Total Bilirubin AST ALT Alkaline Phosphatase Total Protein Albumin C spine: arthritis ASSESSMENT/PLAN: 70 YO M PMH afib, HTN, and alcohol use disorder p/w intermittent b/l LE & UE pain/weakness and frequent falls. Admitted for alcohol withdrawal. #Alcohol withdrawal -last drink at midnight day of admission. -hx Detox visis. pt AMA from Detox early January 2020. [facility] visit in 08/2019, but left prior to eval -Dr. Donato c/s appreciated. Recommended ativan detox protocol if CIWA >12 -CIWA 3 (headache, restless, anxiety) -thiamine -ativan PRN -librium #falls 2/2 alcohol use VS wernicke encephalopathy; Consider Vitamin B12 deficiency, CVA -healed wounds on pt's shins that pt cannot remember the cause of -frequent falls w/o LOC, aura, bladder/fecal incontinence -neuro exam: no focal neuro deficits appreciated; less likely CVA -CT head: old lacunar infarct w/ R basal ganglia; moderate degree of diffuse cerebral atrophy w/ sulcal widening & ventricular dilatation -PT eval ordered -B12 level ordered does have alcoholic hepatitis and maybe approaching cirrhosis, I would get a GI consult for this patient for futher management of his liver as he continues to drink to excess. #CKD -Cr 1.5. Improvement from 03/23 admission Cr of 1.8. '' -Renal ultrasound (03/23/20): small R renal cyst - c/w IVF #Afib c/w eliquis & metoprolol #HTN c/w home rx: hydralazine 10 mg PO Daily #FEN NS monitor lytes as K+ was low on admission, but K+ was already repleted sodium controlled diet #DVT ppx: eliquis #DISPO maintain med surg As per Dr. Donato, can be transferred to [facility] for detox. Or transferred to [facility] for Rehab if detox completed inpatient Visit type - Emergency Visit Emergency Visit: Yes ED Registration Date: 03/31/20 Care time: The patient presented to the Emergency Department on the above date and was hospitalized for further evaluation of their emergent condition. - New Patient This patient is new to me today: Yes Date on this admission: 03/31/20 - Critical Care Critical Care patient: No ATTENDING PHYSICIAN STATEMENT I saw and evaluated the patient. I reviewed the resident's note and discussed the case with the resident. I agree with the resident's findings and plan as documented. SUBJECTIVE: OBJECTIVE: ASSESSMENT AND PLAN:
[2020-03-31] MEDS: SODIUM CHLORIDE 1,000 ML IV SCH (19:50)
[2020-03-31] MEDS: metoPROLOL SUCCINATE 25 MG TAB.SR.24H (FP) PO SCH (21:14)
[2020-03-31] MEDS: APIXABAN 5 MG TABLET PO SCH (21:14)
[2020-03-31] MEDS ORDERED: HEPARIN NA (PORCINE) 5,000 UNITS/ML 1ML VIAL SQ SCH (22:00)
[2020-03-31] MEDS: chlordiazePOXIDE HCL 25 MG CAPSULE PO SCH (23:15)
[2020-04-01] MEDS: chlordiazePOXIDE HCL 25 MG CAPSULE PO SCH ×3 (06:10→23:23)
[2020-04-01 08:45] LABS: BASO % 0.6 % (0-2.0); EOS % 0.1 % (0-4.5); HEMATOCRIT 34.3 % (35.4-49); LYMPH % 14.2 % (8-40); MCH 28.2 pg (25.7-33.7); MEAN CELL VOLUME 88.1 fl (80-96); MEAN PLT VOLUME 9.2 fl (7.5-11.1); MONO % 8.3 % (3.8-10.2); NEUT % 76.8 % (42.8-82.8); PLATELET COUNT 128 K/MM3 (134-434); RDW 27.4 % (11.9-15.9); WHITE BLOOD COUNT 7.4 K/mm3 (4.0-10.0)
[2020-04-01] MEDS: APIXABAN 5 MG TABLET PO SCH ×2 (09:02→21:56)
[2020-04-01] MEDS: MULTIVITAMINS (DAILY MVI) TABLET (FP) PO SCH (09:02)
[2020-04-01] MEDS: FOLIC ACID 1 MG TABLET (FP) PO SCH (09:02)
[2020-04-01] MEDS: metoPROLOL SUCCINATE 25 MG TAB.SR.24H (FP) PO SCH ×2 (09:02→21:56)
[2020-04-01] MEDS: THIAMINE HCL 100 MG TABLET (FP) PO SCH (09:02)
[2020-04-01 09:12] LABS: ALBUMIN 3.5 g/dl (3.4-5.0); BLOOD UREA NITROGEN 13.1 mg/dL (7-18); CREATININE 1.2 mg/dL (0.55-1.3); MAGNESIUM 1.2 mg/dL (1.8-2.4); PHOSPHOROUS 2.6 mg/dL (2.5-4.9); POTASSIUM 3.5 mmol/L (3.5-5.1); TOT PROT 6.1 g/dl (6.4-8.2)
[2020-04-01] MEDS ORDERED: hydrALAZINE HCL 10 MG TABLET PO SCH (10:00)
[2020-04-01] MEDS ORDERED: MAGNESIUM SULF 50% (8.12 MEQ/2 ML-1 GM VIAL) IVPB ONE (10:40)
--- NOTE | 2020-04-01 11:36 | EKG ---
Test Reason : Blood Pressure : / mmHG Vent. Rate : 095 BPM Atrial Rate : 220 BPM P-R Int : 000 ms QRS Dur : 106 ms QT Int : 384 ms P-R-T Axes : 000 013 081 degrees QTc Int : 482 ms ATRIAL FIBRILLATION VOLTAGE CRITERIA FOR LEFT VENTRICULAR HYPERTROPHY ANTEROSEPTAL INFARCT (CITED ON OR BEFORE 03-NOV-2019) ABNORMAL ECG WHEN COMPARED WITH ECG OF 23-MAR-2020 02:55, NONSPECIFIC T WAVE ABNORMALITY NO LONGER EVIDENT IN INFERIOR LEADS Confirmed by AKIKO MCGRATH MD ([id number]) on 04/01/2020 11:35:36 AM Referred By: Confirmed By:AKIKO MCGRATH MD
[2020-04-01] MEDS: chlordiazePOXIDE HCL 10 MG CAPSULE PO PRN (11:55)
--- NOTE | 2020-04-01 13:16 | PN ---
Teaching Attending Note Name of Resident: Debora Zambrano ATTENDING PHYSICIAN STATEMENT I saw and evaluated the patient. I reviewed the resident's note and discussed the case with the resident. I agree with the resident's findings and plan as documented. SUBJECTIVE: No fever or chills. no RICHARDS. no pain. He feels weak in general. he wants to go home. he admiits to trying to cut down on his drinking OBJECTIVE: NAD , dry MM. CV: irreg irreg Lungs: CTAB Abd: soft, NT, ND , NL BS Ext : No edema or erythema on upper or lower extremities. a small wound with a scab ( about 1.5 cm ) on R lateral upper leg. ASSESSMENT AND PLAN: 70 y/o man with h/o ETOH abuse, atrial fibrillatioin , current smoker, , previous WD seizures. he presented with legs pain and generalized weakness, he was found to have ETOH WD 1- ETOH withdrawal : - cont librium - received IV thiamine - cont po thiamine and folic - IVF - replete electrolytes 2- HTN urgency: due to withdrawal and ? compliance - cont toprol - cont HZN, but increase to TID - treat WD 3- A fib with RVR: worse due to WD. ? compliance - cont toprol - ivf - CONT ELIQUIS 4- aLCOHOLIC HEPATITIS: DF 4.5 , No need for treatment - No abd pain. no abd distention . no suspicion for biliary process - w/u for cirrhosis as out pt 5- ROSAS , prerenal . improved with fluids he was advised to stay and get care as leaving could wosen his WD and can cause falls, bleeding, and even . he will stay 4-
[2020-04-01] MEDS: hydrALAZINE HCL 10 MG TABLET PO SCH ×2 (14:30→21:57)
--- NOTE | 2020-04-01 16:27 | PN ---
Physical Exam: SUBJECTIVE: Patient seen and examined at bedside. pt states that he feels like he is ready to go home. denies pain. denies palpitations or chest pain. OBJECTIVE: Vital Signs Period Temp Pulse Resp BP Sys/Carmona Pulse Ox Last 24 Hr 98.1 F-98.6 F 67-120 16-20 117-168/90-113 93-98 GENERAL: The patient is awake, alert, and fully oriented, in no acute distress. HEAD: Normal with no signs of trauma. LUNGS: Breath sounds equal, clear to auscultation bilaterally, no accessory muscle use. HEART: irregular rate and rhythm, S1, S2 without murmur ABDOMEN: Soft, nontender, nondistended, normoactive bowel sounds, no guarding EXTREMITIES: 2+ pulses, warm, well-perfused, no edema. NEUROLOGICAL: Cranial nerves II through XII grossly intact. Normal speech SKIN: Warm, dry, normal turgor, no rashes or lesions noted CIWA 6 Laboratory Results - last 24 hr Laboratory Last Values WBC 7.4 K/mm3 (4.0-10.0) 04/01/20 06:37 RBC 3.90 M/mm3 (4.00-5.60) L 04/01/20 06:37 Hgb 11.0 GM/dL (11.7-16.9) L 04/01/20 06:37 Hct 34.3 % (35.4-49) L 04/01/20 06:37 MCV 88.1 fl (80-96) 04/01/20 06:37 MCH 28.2 pg (25.7-33.7) 04/01/20 06:37 MCHC 32.0 g/dl (32.0-35.9) 04/01/20 06:37 RDW 27.4 % (11.9-15.9) H 04/01/20 06:37 Plt Count 128 K/MM3 (134-434) L 04/01/20 06:37 MPV 9.2 fl (7.5-11.1) D 04/01/20 06:37 Absolute Neuts (auto) 5.7 K/mm3 (1.5-8.0) 04/01/20 06:37 Neutrophils % 76.8 % (42.8-82.8) D 04/01/20 06:37 Lymphocytes % 14.2 % (8-40) D 04/01/20 06:37 Monocytes % 8.3 % (3.8-10.2) 04/01/20 06:37 Eosinophils % 0.1 % (0-4.5) D 04/01/20 06:37 Basophils % 0.6 % (0-2.0) 04/01/20 06:37 Nucleated RBC % 0 % (0-0) 04/01/20 06:37 Hypochromia 1+ 03/31/20 11:40 Platelet Estimate Decreased 03/31/20 11:40 Polychromasia 1+ 03/31/20 11:40 Poikilocytosis 2+ 03/31/20 11:40 Anisocytosis 2+ 03/31/20 11:40 Microcytosis 2+ 03/31/20 11:40 Macrocytosis 2+ 03/31/20 11:40 Ovalocytes 2+ 03/31/20 11:40 PT with INR 10.50 SEC (9.7-13.0) 03/31/20 11:40 INR 0.89 (0.83-1.09) 03/31/20 11:40 PTT (Actin FS) 30.1 SECONDS (25.2-36.5) 03/31/20 11:40 Sodium 140 mmol/L (136-145) 04/01/20 06:37 Potassium 3.5 mmol/L (3.5-5.1) 04/01/20 06:37 Chloride 101 mmol/L (98-107) 04/01/20 06:37 Carbon Dioxide 27 mmol/L (21-32) 04/01/20 06:37 Anion Gap 12 MMOL/L (8-16) 04/01/20 06:37 BUN 13.1 mg/dL (7-18) 04/01/20 06:37 Creatinine 1.2 mg/dL (0.55-1.3) 04/01/20 06:37 Est GFR (CKD-EPI)AfAm 71.58 04/01/20 06:37 Est GFR (CKD-EPI)NonAf 61.76 04/01/20 06:37 POC Glucometer 124 UNITS (80-120) 04/01/20 11:01 Random Glucose 112 mg/dL (74-106) H 04/01/20 06:37 Hemoglobin A1c % 4.3 % (4.2-6.3) 04/01/20 06:37 Calcium 8.0 mg/dL (8.5-10.1) L 04/01/20 06:37 Phosphorus 2.6 mg/dL (2.5-4.9) 04/01/20 06:37 Magnesium 1.2 mg/dL (1.8-2.4) L 04/01/20 06:37 Total Bilirubin 2.0 mg/dL (0.2-1) H 04/01/20 06:37 AST 115 U/L (15-37) H 04/01/20 06:37 ALT 51 U/L (13-61) 04/01/20 06:37 Alkaline Phosphatase 74 U/L (45-117) 04/01/20 06:37 Creatine Kinase 371 U/L (26-308) H 03/31/20 11:40 Creatine Kinase Index 1.1 % (0.0-5.0) 03/31/20 11:40 CK-MB (CK-2) 4.3 ng/mL (0.5-3.6) H 03/31/20 11:40 Total Protein 6.1 g/dl (6.4-8.2) L 04/01/20 06:37 Albumin 3.5 g/dl (3.4-5.0) 04/01/20 06:37 Triglycerides 93 mg/dL (0-150) 04/01/20 06:37 Cholesterol 167 mg/dL (50-200) 04/01/20 06:37 Total LDL Cholesterol 33 mg/dL (5-100) 04/01/20 06:37 HDL Cholesterol 117 mg/dL (40-60) H 04/01/20 06:37 Vitamin B12 638 pg/ml (193-986) 04/01/20 06:37 COVID-19 (NICHOLE) Not detected (Not Detected) 03/31/20 13:40 Active Medications Generic Name Dose Route Start Last Admin Trade Name Freq PRN Reason Stop Dose Admin Apixaban 5 mg 03/31/20 22:00 04/01/20 09:02 Eliquis - PO 5 mg BID NIKOLAS Administration Chlordiazepoxide HCl 25 mg 03/31/20 23:00 04/01/20 14:30 Librium - PO 04/01/20 23:01 25 mg Q8H NIKOLAS Administration Chlordiazepoxide HCl 10 mg 04/03/20 00:00 Librium - PO 04/03/20 23:59 Q12H PRN Signs/symptoms of Withdrawal Chlordiazepoxide HCl 10 mg 03/31/20 22:35 04/01/20 11:55 Librium - PO 04/02/20 23:59 10 mg Q8H PRN Administration Signs/symptoms of Withdrawal Chlordiazepoxide HCl 15 mg 04/02/20 07:00 Librium - PO 04/02/20 23:01 Q8H NIKOLAS Chlordiazepoxide HCl 10 mg 04/03/20 07:00 Librium - PO 04/03/20 23:01 Q8H NIKOLAS Chlordiazepoxide HCl 10 mg 04/04/20 07:00 04/01/20 11:53 Librium - PO 04/04/20 07:01 10 mg ONCE ONE Administration Folic Acid 1 mg 04/01/20 10:00 04/01/20 09:02 Folic Acid - PO 1 mg DAILY NIKOLAS Administration Hydralazine HCl 10 mg 04/01/20 14:00 04/01/20 14:30 Apresoline - PO 10 mg TID NIKOLAS Administration Sodium Chloride 1,000 mls @ 83 mls/hr 03/31/20 16:00 03/31/20 19:50 Normal Saline - IV 83 mls/hr ASDIR NIKOLAS Administration Metoprolol Succinate 75 mg 03/31/20 22:00 04/01/20 09:02 Toprol Xl - PO 75 mg BID NIKOLAS Administration Multivitamins/Minerals/Vitamin C 1 tab 04/01/20 10:00 04/01/20 09:02 Tab-A-Vit - PO 1 tab DAILY NIKOLAS Administration Thiamine HCl 100 mg 04/01/20 10:00 04/01/20 09:02 Vitamin B1 - PO 100 mg DAILY NIKOLAS Administration ASSESSMENT/PLAN: 70 yo M PMH of AFib ( eliquis),DM HTN, COPD ( no home O2), HLD, Alcohol abuse presents to ED for B/L leg pain and scapular pain. Pt is admitted for acute alcohol withdrawal Acute Alcohol Withdrawal - will cont Librium protocol - Dr. Donato consulted - IVF, Multivitamin, thiamine - seizure precautions Hx of frequent falls likely 2/2 Alcoholism - CT head negative - C spine showing arthritis - CXR negative ROSAS vs CKD - Cr improving 1.2 from 1.8 - cont IVF - Renal U/s from 03/23/2020 showing small R renal cyst- otherwise unremarkable Afib - c/w eliquis - rate controlled with metoprolol DM - A1C 4.3 HTN - cont home meds HLD -lipid panel reviewed. well controlled. DVT ppx: Eliquis Admit to med/surg COVID negative ATTENDING PHYSICIAN STATEMENT I saw and evaluated the patient. I reviewed the resident's note and discussed the case with the resident. I agree with the resident's findings and plan as documented. SUBJECTIVE: OBJECTIVE: ASSESSMENT AND PLAN:
[2020-04-01] MEDS: SODIUM CHLORIDE 1,000 ML IV SCH (17:37)
[2020-04-02] MEDS: hydrALAZINE HCL 10 MG TABLET PO SCH ×3 (06:15→21:51)
[2020-04-02] MEDS: chlordiazePOXIDE 5 MG CAPSULE PO SCH ×3 (06:15→22:34)
[2020-04-02] MEDS: SODIUM CHLORIDE 1,000 ML IV SCH (06:26)
[2020-04-02 08:19] LABS: HEMATOCRIT 33.8 % (35.4-49); HEMOGLOBIN 10.6 GM/dL (11.7-16.9); MCH 27.5 pg (25.7-33.7); MCHC 31.3 g/dl (32.0-35.9); MEAN PLT VOLUME 9.4 fl (7.5-11.1); PLATELET COUNT 117 K/MM3 (134-434); RBC 3.84 M/mm3 (4.00-5.60); RDW 27.3 % (11.9-15.9); WHITE BLOOD COUNT 7.8 K/mm3 (4.0-10.0)
[2020-04-02 08:45] LABS: BLOOD UREA NITROGEN 14.9 mg/dL (7-18); CALCIUM 8.3 mg/dL (8.5-10.1); CREATININE 1.2 mg/dL (0.55-1.3); MAGNESIUM 1.8 mg/dL (1.8-2.4); PHOSPHOROUS 2.8 mg/dL (2.5-4.9); POTASSIUM 3.7 mmol/L (3.5-5.1)
[2020-04-02] MEDS: THIAMINE HCL 100 MG TABLET (FP) PO SCH (10:33)
[2020-04-02] MEDS: MULTIVITAMINS (DAILY MVI) TABLET (FP) PO SCH (10:33)
[2020-04-02] MEDS: APIXABAN 5 MG TABLET PO SCH ×2 (10:33→21:50)
[2020-04-02] MEDS: metoPROLOL SUCCINATE 25 MG TAB.SR.24H (FP) PO SCH ×2 (10:33→21:51)
[2020-04-02] MEDS: FOLIC ACID 1 MG TABLET (FP) PO SCH (10:33)
[2020-04-02] MEDS ORDERED: NICOTINE 14 MG/24 HOURS TOPICAL PATCH TD SCH (13:45)
--- NOTE | 2020-04-02 13:48 | PN ---
Progress Note (short form) - Note Progress Note: Subjective: no fever or chills. has no pain. has SOB , althoug his sat per Rn was 96% on RA. no abd pain. caught smoking in room by RN Objective: Vital Signs: Last Vital Signs Temp Pulse Resp BP Pulse Ox 97.6 F 96 H 16 136/81 100 04/02/20 05:00 04/02/20 05:00 04/02/20 05:00 04/02/20 05:00 04/01/20 21:00 Laboratory Results - last 24 hr 04/02/20 04/02/20 06:53 06:53 WBC 7.8 RBC 3.84 L Hgb 10.6 L Hct 33.8 L MCV 88.0 MCH 27.5 MCHC 31.3 L RDW 27.3 H Plt Count 117 L MPV 9.4 Sodium 138 Potassium 3.7 Chloride 101 Carbon Dioxide 28 Anion Gap 9 BUN 14.9 Creatinine 1.2 Est GFR (CKD-EPI)AfAm 71.58 Est GFR (CKD-EPI)NonAf 61.76 Random Glucose 93 Calcium 8.3 L Phosphorus 2.8 Magnesium 1.8 OBJECTIVE: NAD , MMM CV: RRR today Lungs: CTAB Abd: soft, NT, ND , NL BS Ext : No edema or erythema on upper or lower extremities. a small wound with a scab ( about 1.5 cm ) on R lateral upper leg not changed frm yesterday ASSESSMENT AND PLAN: 70 y/o man with h/o ETOH abuse, atrial fibrillatioin , current smoker, , previous WD seizures. he presented with legs pain and generalized weakness, he was found to have ETOH WD 1- ETOH withdrawal : - cont librium - cont po thiamine and folic - Dc IVF 2- HTN urgency: resolved . Bp is betetr controlled - cont toprol - cont HZ - treat WD 3- A fib with RVR: HR is better controlled - cont toprol - CONT ELIQUIS 4- aLCOHOLIC HEPATITIS: - follow LFTs in am - w/u for cirrhosis as out pt 5- ROSAS, prerenal . resolved 6- Nicotine dependence : add nictine patch. asked not to smoke in house did not do well with PT. will need rehab at pr. won't be accepted at [facility] with no good mobility. Visit type - Emergency Visit Emergency Visit: Yes ED Registration Date: 03/31/20 Care time: The patient presented to the Emergency Department on the above date and was hospitalized for further evaluation of their emergent condition. - New Patient This patient is new to me today: No - Critical Care Critical Care patient: No
[2020-04-02] MEDS: chlordiazePOXIDE HCL 10 MG CAPSULE PO PRN (17:53)
[2020-04-02 20:43] LABS: EPI CELLS 10 /uL (0-25.1); HYALINE CASTS 2 /uL (0-3.1); URINE APPEARANCE CLEAR; URINE BACTERIA 11 /uL (0-1359); URINE BILIRUBIN NEGATIVE (NEGATIVE); URINE COLOR YELLOW; URINE GLUCOSE (UA) NEGATIVE (NEGATIVE); URINE KETONE TRACE (NEGATIVE); URINE LEUK ESTERASE NEGATIVE (NEGATIVE); URINE NITRITE NEGATIVE (NEGATIVE); URINE PROTEIN 2+ (NEGATIVE); URINE WBC 7 /uL (0-25.8)
[2020-04-02 21:19] LABS: URINE RBC 127.6 /uL (0-23.9)
[2020-04-03] MEDS ORDERED: chlordiazePOXIDE HCL 10 MG CAPSULE PO PRN
[2020-04-03 05:00] VITALS: BP 143/90; PULSE 99; TEMP 97.8
[2020-04-03] MEDS ORDERED: chlordiazePOXIDE HCL 10 MG CAPSULE PO SCH (07:00)
--- NOTE | 2020-04-03 12:53 | DS ---
Physical Exam: SUBJECTIVE: Patient left AMA OBJECTIVE: Vital Signs Period Temp Pulse Resp BP Sys/Carmona Pulse Ox Last 24 Hr 97.8 F-98.5 F 84-103 18-18 138-143/75-90 98 PHYSICAL EXAM Patient left AMA LABS Laboratory Results - last 24 hr 04/01/20 20:10 Urine Color Yellow Urine Appearance Clear Urine pH 6.0 Ur Specific [place] 1.017 Urine Protein 2+ H Urine Glucose (UA) Negative Urine Ketones Trace H Urine Blood Negative Urine Nitrite Negative Urine Bilirubin Negative Urine Urobilinogen 1.0 Ur Leukocyte Esterase Negative Urine WBC (Auto) 7 Urine RBC (Auto) 127.6 Urine Casts (Auto) 2 U Epithel Cells (Auto) 10 Urine Bacteria (Auto) 11 HOSPITAL COURSE: 70 YO M PMH afib, HTN, and alcohol use disorder presents with intermittent bilateral LE & UE pain and weakness with frequent falls. He was admitted to the hospital for acute alcohol withdrawal treatment and monitoring. The patient was placed on librium protocol. Because of his falls, a CT head was performedd that showed old lacunar infarct w/ R basal ganglia; moderate degree of diffuse cerebral atrophy with sulcal widening & ventricular dilatation. A CT C-spine was also done that showed moderately severe degenerative arthritis with no fracture or acute pathology. Despite medical advice and without completing medical withdrawal, the patient Left AMA late last night. Date of Admission:03/31/20 Date of Discharge: 04/03/20 Minutes to complete discharge: 0 (Patient left AMA) Discharge Summary Problems reviewed: Yes Reason For Visit: ALCOHOLIC INTOXICATION PAIN IN BOTH LOWER EXTREMIT Condition: Guarded - Instructions Referrals: Ezio Sabillon [Primary Care Provider] - Disposition: AGAINST MEDICAL ADVICE - Home Medications Comprehensive Discharge Medication List: Ambulatory Orders Hydralazine HCl 10 mg PO DAILY 01/27/20 Apixaban [Eliquis] 5 mg PO BID 02/18/20 Metoprolol Succinate 75 mg PO BID 03/23/20 This patient is new to me today: Yes Date on this admission: 04/09/20 Emergency Visit: Yes ED Registration Date: 03/31/20 Care time: The patient presented to the Emergency Department on the above date and was hospitalized for further evaluation of their emergent condition. Critical Care patient: No - Discharge Referral Referred to [facility] Med P.C.: No ATTENDING PHYSICIAN STATEMENT I saw and evaluated the patient. I reviewed the resident's note and discussed the case with the resident. I agree with the resident's findings and plan as documented. SUBJECTIVE: OBJECTIVE: ASSESSMENT AND PLAN:
[2020-04-04] MEDS ORDERED: chlordiazePOXIDE HCL 10 MG CAPSULE PO ONE (07:00)
== END 2020-04-03 05:29 | disposition left against medical advice (07) | DRG 894 ==
LOC: JER 10:40 → JERBED 15:50 → J6S 18:23
PROVIDERS: ADMIT Internal Medicine; ATTEND Internal Medicine
DX: F10.230 Alcohol dependence with withdrawal, uncomplicated (principal); N17.9 Acute kidney failure, unspecified; I48.91 Unspecified atrial fibrillation; I12.9 Hypertensive chronic kidney disease with stage 1 through stage 4 chronic kidney disease, or unspecified chronic kidney disease; I16.0 Hypertensive urgency; N18.9 Chronic kidney disease, unspecified; K70.10 Alcoholic hepatitis without ascites; Z79.01 Long term (current) use of anticoagulants; J44.9 Chronic obstructive pulmonary disease, unspecified; R16.0 Hepatomegaly, not elsewhere classified; Z91.81 History of falling; F17.210 Nicotine dependence, cigarettes, uncomplicated
CPT/HCPCS: 36415; 70450-TC; 71045-TC-FY; 72125-TC; 80048; 80053; 80061; 81003; 82550; 82553; 82607; 82962; 83036; 83721; 83735; 84100; 85025; 85027; 85610; 85730; 93005; 93010; 97116-GP; 99285-25; U0003

== ENCOUNTER 2020-04-28 19:47 | Emergency (ER) | payer OTHER ==
[2020-04-28 20:02] VITALS: BP 160/90; PULSE 104; TEMP 97.9; BMI 21.7
--- NOTE | 2020-04-28 20:55 | PDOC ---
Documentation entered by Mariza Contreras SCRIBE, acting as scribe for Rishabh Mac MD. Rishabh Mac MD: This documentation has been prepared by the Ben dumont Xhesika, SCRIBE, under my direction and personally reviewed by me in its entirety. I confirm that the documentation accurately reflects all work, treatment, procedures, and medical decision making performed by me. Attending Attestation - Resident Resident Name: ArvindJhon - ED Attending Attestation I have performed the following: I have examined & evaluated the patient, The case was reviewed & discussed with the resident, I agree w/resident's findings & plan, Exceptions are as noted - HPI HPI: 04/28/20 20:43 The patient is a 70 year old male, with a significant PMH of HLD, HTN, COPD (not on home O2), Afib (on eliquis) and chronic alcohol/nicotine use who presents to the emergency department BIBA s/p fall. Pt states he was walking from the kitchen to his bedroom when he tripped and fell on his buttocks. Pt denies hitting his head or LOC. Pt states he was able to crawl to his bedroom and call EMS. Pt states he drank 1/2 pint of vodka today. The patient denies chest pain, shortness of breath, headache and dizziness. Denies fever, chills, cough, nausea, vomiting, diarrhea. Allergies: enalapril, lisinopril Social history: No reported hx of tobacco use, alcohol use or illicit drug use. - Physicial Exam PE: 04/28/20 20:55 "GENERAL: Awake, alert, and fully oriented, in no acute distress. HEAD: No signs of trauma EYES: PERRLA, EOMI, sclera anicteric, conjunctiva clear ENT: Auricles normal inspection, hearing grossly normal, nares patent, oropharynx clear without exudates. Moist mucosa NECK: Nontender, no stepoffs, Normal ROM, supple, no lymphadenopathy, JVD, or masses LUNGS: Breath sounds equal, clear to auscultation bilaterally. No wheezes, and no crackles HEART: Regular rate and rhythm, normal S1 and S2, no murmurs, rubs or gallops ABDOMEN: Soft, nontender, normoactive bowel sounds. No guarding, no rebound. No masses EXTREMITIES: Normal range of motion, no edema. No clubbing or cyanosis. No cords, erythema, or tenderness NEUROLOGICAL: Cranial nerves II through XII intact. 5/5 strength and sensation in all extremities, Normal speech, normal gait, normal cerebellar function SKIN: Warm, Dry, normal turgor, no rashes or lesions noted. - Medical Decision Making 04/28/20 20:55 70 M presenting after mechanical fall at home. No evidence of trauma on exam, but will obtain CT head given pt is on eliquis. Pt drank earlier today but appears clinically sober in ED, ambulating with steady gait. - CT head/c-spine Pt requesting urine drug screen because he wants paperwork to show he is not using cocaine. Pt informed that this test is not indicated at this time. Pt now refusing imaging and stating he wants to go home, as he feels fine. The patient is clinically sober, free from distracting injury, appears to have intact insight and judgment and reason and in my opinion has the capacity to make decisions. The patient presented with a fall. I have explained that I am concerned that because he is on a blood thinner, we must rule out a head bleed; they have verbalized an understanding of my concerns. I have told the patient that if they leave, they could get much worse, could become critically ill, and could possibly become disabled or . The patient is not willing to await a CT scan. He is refusing any further care and is leaving against medical advice. I am unable to convince the patient to stay, I have asked them to return as soon as possible to complete their evaluation. I have answered all their questions. Discharge - Discharge Information Problems reviewed: Yes Clinical Impression/Diagnosis: Fall Qualifiers: Encounter type: initial encounter Qualified Code(s): W19.XXXA - Unspecified fall, initial encounter Disposition: AGAINST MEDICAL ADVICE - Follow up/Referral - Patient Discharge Instructions - Post Discharge Activity
--- NOTE | 2020-04-28 20:57 | PDOC ---
History of Present Illness - General Chief Complaint: Injury Stated Complaint: INTOXICATED Time Seen by Provider: 04/28/20 20:15 History Source: Patient Exam Limitations: Intoxication - History of Present Illness Initial Comments: Shady snider is a 70 Y M with a PMH of Afib(eliquis), HTN, COPD, and alcohol use disorder, presents to ER after an fall. Patient reports that he was walking to his bedroom, when his knees gave out and fell backwards hitting his buttocks. He crawled to the bedroom and called and ambulance. Pt denies any head/neck trauma, LOC, new weakness, acute focal neurological deficits, fever, chills, nausea, vomiting, chest pain, palpitations. patient reports that he had 1/2 pint of vodka earlier today, but is not intoxicated now. 04/28/20 21:07 04/28/20 21:15 Past History - Travel History Traveled outside of the country in the last 30 days: No Close contact w/someone who was outside of country & ill: No - Medical History Allergies/Adverse Reactions: Allergies Allergy/AdvReac Type Severity Reaction Status Date / Time enalapril Allergy Swelling Verified 04/28/20 19:57 lisinopril Allergy Swelling Verified 04/28/20 19:57 Home Medications: Ambulatory Orders Hydralazine HCl 10 mg PO DAILY 01/27/20 Apixaban [Eliquis] 5 mg PO BID 02/18/20 Metoprolol Succinate 75 mg PO BID 03/23/20 Anemia: No Asthma: No Cancer: No Cardiac Disorders: Yes (Afib, [facility] last year) CVA: No COPD: Yes CHF: No DVT: No (taking blood thinners) Dementia: No Diabetes: No Dialysis: No GI Disorders: No Disorders: No HTN: Yes Hypercholesterolemia: Yes Kidney Stones: No Liver Disease: No Psychiatric Problems: Yes (substance abuse) Seizures: Yes (09/2018 hospitalization) Thyroid Disease: No Lung CA: No - Surgical History Abdominal Surgery: No Appendectomy: No Cardiac Surgery: No Cholecystectomy: No Gastric Stapling: No GI Surgery: No Lung Surgery: No Neurologic Surgery: No - Immunization History Immunization Up to Date: Yes - Psycho-Social/Smoking History Smoking History: Current every day smoker Have you smoked in the past 12 months: Yes Number of Cigarettes Smoked Daily: 6 Information on smoking cessation initiated: No 'Breaking Loose' booklet given: 03/31/20 - Substance Abuse Hx (Audit-C & DAST Scrn) How often the patient has a drink containing alcohol: 2-4 times / month Number of drinks the patient has on a typical day: 5 or 6 How often the patient has six or more drinks on one occasion: Never Score: In Men: 4 or > Positive; In Women: 3 or > Positive: 4 Screen Result (Pos requires Nsg. Audit-10AR): Positive In the last yr the pt used illegal drug/Rx for NonMed reason: No Score: Yes response is considered Positive: 0 Screen Result (Positive result requires Nsg. DAST-10): Negative Review of Systems - Review of Systems Able to Perform ROS?: Yes Is the patient limited [place] Citizen proficient: No Constitutional: Yes: Weakness (chronic b/l LE). No: Chills, Fever, Night Sweats HEENTM: No: Blurred Vision, Nose Pain, Throat Pain, Throat Swelling, Difficulty Swallowing Respiratory: No: Cough, Shortness of Breath Cardiac (ROS): No: Chest Pain, Edema, Lightheadedness, Palpitations, Syncope ABD/GI: No: Constipated, Diarrhea, Difficulty Swallowing, Nausea, Vomiting : Yes: Incontinence. No: Burning, Dysuria, Hematuria, Urgency Musculoskeletal: Yes: Joint Pain, Muscle Weakness. No: Back Pain Integumentary: No: Change in Color Neurological: No: Headache, Numbness, Paresthesia, Seizure, Tingling, Tremors, Weakness, Dizziness *Physical Exam - Vital Signs Last Vital Signs Temp Pulse Resp BP Pulse Ox 97.9 F 104 H 20 160/90 94 L 04/28/20 19:57 04/28/20 19:57 04/28/20 19:57 04/28/20 19:57 04/28/20 19:57 - Physical Exam General Appearance: Yes: Alcohol on Breath, Thin. No: Apparent Distress, Intoxicated HEENT: positive: MARY. negative: Nasal Congestion, Rhinorrhea Neck: positive: Supple. negative: Tender, Carotid bruit, Decreased range of motion, Tender lateral, Tender midline Respiratory/Chest: positive: Decreased Breath Sounds. negative: Respiratory Distress, Crackles, Rales, Rhonchi Cardiovascular: positive: S1, S2, Irregularly Irregular. negative: Edema, JVD, Murmur Vascular Pulses: Carotid (R): 2+, Carotid (L): 2+, Dorsalis-Pedis (R): 1+, Doralis-Pedis (L): 1+ Gastrointestinal/Abdominal: positive: Normal Bowel Sounds, Flat, Soft. negative: Rebound, Tenderness, Hernia, Mass Musculoskeletal: negative: Vertebral Tenderness Extremity: positive: Pelvis Stable. negative: Tender, Pedal Edema, Swelling, Calf Tenderness Integumentary: positive: Warm. negative: Dry, Erythema, Jaundice, Swelling Neurologic: positive: Alert, Normal Response Medical Decision Making - Medical Decision Making 70 Y M with a PMH of Afib(eliquis), HTN, COPD, and alcohol use disorder, presents to ER after an fall. #fall - Head/neck CT - IV cristiana bag - CXR - CBC, CMP 04/28/20 21:14 Discharge - Discharge Information Problems reviewed: Yes Clinical Impression/Diagnosis: Fall Qualifiers: Encounter type: initial encounter Qualified Code(s): W19.XXXA - Unspecified fall, initial encounter Condition: Unchanged/Unknown Disposition: AGAINST MEDICAL ADVICE - Follow up/Referral - Patient Discharge Instructions Additional Instructions: You were Seen is [facility] ER today, 04/28/20 after an fall. During the interview, you stated that you do not want to get any labs, imaging (CT scan of your head and Neck) and IV fluids. You stated you want to go home and watch some TV. You are at increased risk for acute bleed of you had a head trauma. You denied any head/neck trauma. You are requesting to leave AMA. You were able to walk in the department and are clinically sober. You have the capacity to make decisions for your medical care and you understand the risk of leaving AMA. You stated that you are calling a cab and will go straight home. Please return to the emergency department if you develop fevers/chills, sudden onset of headache, new onset of weakness, hallucinations, nausea and vomiting, and severe pain. Please refrain from drinking and contact your local resources in [place] for alcohol abuse or use the Women[employer]comline for alcohol abuse help (8-689-864-HELP (0294)). Please follow up with your primary care physician for your routine health care. Thank you. - Post Discharge Activity
== END 2020-04-28 21:08 | disposition left against medical advice (07) ==
LOC: JER 19:47
DX: Z04.3 Encounter for examination and observation following other accident (principal); W19.XXXA Unspecified fall, initial encounter
CPT/HCPCS: 99282-25

== ENCOUNTER 2020-05-30 22:10 | Emergency (ER) | payer OTHER ==
[2020-05-30 23:27] VITALS: BP 141/91; PULSE 98; BMI 21.7
--- NOTE | 2020-05-31 00:50 | PDOC ---
History of Present Illness - General History Source: Patient - History of Present Illness Is this a multiple visit Asthma Patient?: No <Marina Fernandez - Last Filed: 05/31/20 01:10> - General History Source: Patient Exam Limitations: No Limitations - History of Present Illness Initial Comments: 05/31/20 00:50 HPI: 70 yo M pmh PMH Afib (eliquis), HTN, COPD, and alcohol use disorder, presenting to the ED with alcohol intoxication. Patient presented, walked out of the ED x2, brought back in by security when laying on the ground outside. Requesting to get a cab home. Denying chest pain, fevers, chills, nausea, vomiting, headache, SOB. Meds: Per chart All: Enalapril, Lisinopril PMH: As above PSH: Per chart <Servando Webster - Last Filed: 05/31/20 02:11> - General Chief Complaint: Alcohol intoxication Stated Complaint: INTOXICATED Time Seen by Provider: 05/31/20 00:49 Past History <Marina Fernandez - Last Filed: 05/31/20 01:10> - Travel History Traveled outside of the country in the last 30 days: No Close contact w/someone who was outside of country & ill: No - Medical History Anemia: No Asthma: No Cancer: No Cardiac Disorders: Yes (Afib, [facility] last year) CVA: No COPD: Yes CHF: No DVT: No (taking blood thinners) Dementia: No Diabetes: No Dialysis: No GI Disorders: No Disorders: No HTN: Yes Hypercholesterolemia: Yes Kidney Stones: No Liver Disease: No Psychiatric Problems: Yes (substance abuse) Seizures: Yes (09/2018 hospitalization) Thyroid Disease: No Lung CA: No - Surgical History Abdominal Surgery: No Appendectomy: No Cardiac Surgery: No Cholecystectomy: No Gastric Stapling: No GI Surgery: No Lung Surgery: No Neurologic Surgery: No - Immunization History Immunization Up to Date: Yes - Psycho-Social/Smoking History Smoking History: Unknown if ever smoked Have you smoked in the past 12 months: Yes Number of Cigarettes Smoked Daily: 6 'Breaking Loose' booklet given: 03/31/20 - Substance Abuse Hx (Audit-C & DAST Scrn) How often the patient has a drink containing alcohol: 2-3 times / week Score: In Men: 4 or > Positive; In Women: 3 or > Positive: 3 Screen Result (Pos requires Nsg. Audit-10AR): Negative In the last yr the pt used illegal drug/Rx for NonMed reason: No Score: Yes response is considered Positive: 0 Screen Result (Positive result requires Nsg. DAST-10): Negative <Servando Webster - Last Filed: 05/31/20 02:11> - Medical History Allergies/Adverse Reactions: Allergies Allergy/AdvReac Type Severity Reaction Status Date / Time enalapril Allergy Swelling Verified 04/28/20 19:57 lisinopril Allergy Swelling Verified 04/28/20 19:57 Home Medications: Ambulatory Orders Hydralazine HCl 10 mg PO DAILY 01/27/20 Apixaban [Eliquis] 5 mg PO BID 02/18/20 Metoprolol Succinate 75 mg PO BID 03/23/20 Review of Systems - Review of Systems Able to Perform ROS?: Yes Is the patient limited Pashto proficient: Yes Constitutional: No: Chills, Fever, Weakness HEENTM: No: Recent change in vision, Nose Congestion, Throat Pain Respiratory: No: Cough, Shortness of Breath Cardiac (ROS): No: Chest Pain, Irregular Heart Rate, Lightheadedness, Palpitations, Syncope, Chest Tightness ABD/GI: No: Constipated, Diarrhea, Nausea, Vomiting : No: Burning, Dysuria, Frequency Musculoskeletal: No: Back Pain, Muscle Pain, Muscle Weakness Integumentary: No: Bruising, Lesions, Lumps Neurological: No: Headache, Numbness, Tingling, Weakness Psychiatric: No: Anxiety, Depression, Stressors, Change in Appetite Endocrine: No: Increased Hunger, Increased Thirst Hematologic/Lymphatic: No: Anemia, Blood Clots, Easy Bleeding All Other Systems: Reviewed and Negative <Servando Webster - Last Filed: 05/31/20 02:11> *Physical Exam - Vital Signs Last Vital Signs Temp Pulse Resp BP Pulse Ox 98 H 18 141/91 97 05/30/20 23:25 05/30/20 23:25 05/30/20 23:25 05/30/20 23:25 <Marina Fernandez - Last Filed: 05/31/20 01:10> - Vital Signs Last Vital Signs Temp Pulse Resp BP Pulse Ox 98 H 18 141/91 97 05/30/20 23:25 05/30/20 23:25 05/30/20 23:25 05/30/20 23:25 - Physical Exam 05/31/20 01:25 Vitals reviewed, AFVSS GEN: Well appearing, appears stated age, NAD, comfortable. AAOx3. HEENT: NCAT, EOMI, PERRL. Sclera anicteric, noninjected. No facial asymmetry. Moist mucous membranes. Normal voice. Trachea midline. CV: RRR, S1/S2, no murmurs / rubs / gallops appreciated. LUNG: CTABL, normal work of breathing. No wheezes, rales, rhonchi. No cough. Speaking full sentences. GI: Soft, NTND, +BS, no guarding, no rebound. No masses. EXTREMITIES: 2+ distal pulses. No clubbing / cyanosis / edema. No gross deformity in any extremity. SKIN: Warm, dry, no rashes appreciated, non-jaundiced. PSYCH: Normal mood and affect. Cooperative and appropriate. NEURO: CN grossly intact. Moving all extremities well. Normal strength and sensation grossly. <Servando Webster - Last Filed: 05/31/20 02:11> Medical Decision Making - Medical Decision Making 05/31/20 01:24 70 yo M pmh PMH Afib (eliquis), HTN, COPD, and alcohol use disorder, presenting to the ED with alcohol intoxication. Patient ambulatory with steady gait, alert, requesting to get a cab to return home. Does not want further revaluation. Dispo: Home 05/31/20 02:[address] after report of lowering himself to the ground after feeling like he may fall. Denies head trauma, states he can get into his own home, ambulatory in the department. Noted by security on video review to have gone to [place] in lobby, withdraw money, and get into a cab. Dispo: Eloped from department <Servando Webster - Last Filed: 05/31/20 02:11> Discharge <aMrina Fernandez - Last Filed: 05/31/20 01:10> - Discharge Information Problems reviewed: Yes <Servando Webster - Last Filed: 05/31/20 02:11> - Discharge Information Clinical Impression/Diagnosis: Alcohol intoxication Qualifiers: Complication of substance-induced condition: uncomplicated Qualified Code(s): F10.920 - Alcohol use, unspecified with intoxication, uncomplicated Condition: Stable Disposition: ELOPED - Patient Discharge Instructions Patient Printed Discharge Instructions: DI for Alcohol Abuse
--- NOTE | 2020-05-31 01:13 | PDOC ---
Attending Attestation - Resident Resident Name: Servando Webster - ED Attending Attestation I have performed the following: I have examined & evaluated the patient, The case was reviewed & discussed with the resident, I agree w/resident's findings & plan, Exceptions are as noted - HPI HPI: 05/31/20 01:12 this tall 70 yo male presents for feeling weak. he has a history of alcohol abuse - Physicial Exam PE: 05/31/20 01:13 tall thin disheveled 70 yo male head no scalp lacerations eyes joy lungs no rales cvs [id number] abdomen flat extremities no deformities skin no acute lacerations neuro alert and conversant - Medical Decision Making 05/31/20 02:02 pt is waiting for ct scan head 05/31/20 02:11 this patient was seen getting into a cab he has ELOPED Discharge - Discharge Information Problems reviewed: Yes Clinical Impression/Diagnosis: Alcohol intoxication Qualifiers: Complication of substance-induced condition: uncomplicated Qualified Code(s): F10.920 - Alcohol use, unspecified with intoxication, uncomplicated Condition: Stable Disposition: ELOPED - Follow up/Referral - Patient Discharge Instructions Patient Printed Discharge Instructions: DI for Alcohol Abuse - Post Discharge Activity
== END 2020-05-31 02:24 | disposition left against medical advice (07) ==
LOC: JER 22:10
DX: F10.920 Alcohol use, unspecified with intoxication, uncomplicated (principal)
CPT/HCPCS: 99281-25

== ENCOUNTER 2020-05-31 10:17 | Emergency (ER) | payer OTHER ==
[2020-05-31 10:36] VITALS: TEMP 98.2; BMI 20.4
[2020-05-31] MEDS ORDERED: ALBUTEROL SO4 2.5/IPRATROPIUM 0.5 INH SOL 3 ML VIAL.NEB. NEB ONE (11:06)
[2020-05-31] MEDS ORDERED: methylPREDNISolone NA SUCC 125 MG/2 ML VIAL IVPB ONE (11:06)
[2020-05-31] MEDS ORDERED: methylPREDNISolone NA SUCC 125 MG/2 ML VIAL ONE (11:21)
[2020-05-31] MEDS ORDERED: ALBUTEROL SO4 HFA INHALER IH ONE ×2 (11:21)
--- NOTE | 2020-05-31 11:21 | PDOC ---
Documentation entered by Armond Bowie SCRIBE, acting as scribe for Rishabh Mac MD. Rishabh Mac MD: This documentation has been prepared by the Azeb dumont Angel, SCRIBE, under my direction and personally reviewed by me in its entirety. I confirm that the documentation accurately reflects all work, treatment, procedures, and medical decision making performed by me. History of Present Illness - General Chief Complaint: Shortness of Breath Stated Complaint: RESPIRATORY History Source: Patient Exam Limitations: No Limitations - History of Present Illness Initial Comments: 05/31/20 11:07 The patient is a 70 year old male with a significant past medical history of Afib (eliquis), HTN, COPD, and alcohol use disorder who presents to the ED with SOB since 6am this morning. The patient was here in the ED yesterday evening for intoxication. The patient left at 2am this morning. Pt then began to feel SOB at 6am but states that it resolved upon arrival to ED. The patient states he wants to go home but agrees to be evaluated. The patient denies lightheadedness, chest pain, fever/chills or headache. Denies leg swelling. Past History - Medical History Allergies/Adverse Reactions: Allergies Allergy/AdvReac Type Severity Reaction Status Date / Time lisinopril Allergy Severe Swelling Verified 06/02/20 19:18 enalapril Allergy Swelling Verified 06/02/20 19:18 Home Medications: Ambulatory Orders Hydralazine HCl 10 mg PO DAILY 01/27/20 Apixaban [Eliquis] 5 mg PO BID 02/18/20 Metoprolol Succinate 75 mg PO BID 03/23/20 Albuterol Sulfate Inhaler - [Ventolin HFA Inhaler -] 1 - 2 inh PO Q4H #1 inhaler 05/31/20 Anemia: No Asthma: No Cancer: No Cardiac Disorders: Yes (Afib, [facility] last year) CVA: No COPD: Yes CHF: No DVT: No (taking blood thinners) Dementia: No Diabetes: No Dialysis: No GI Disorders: No Disorders: No HTN: Yes Hypercholesterolemia: Yes Kidney Stones: No Liver Disease: No Psychiatric Problems: Yes (substance abuse) Seizures: Yes (09/2018 hospitalization) Thyroid Disease: No Lung CA: No - Surgical History Abdominal Surgery: No Appendectomy: No Cardiac Surgery: No Cholecystectomy: No Gastric Stapling: No GI Surgery: No Lung Surgery: No Neurologic Surgery: No - Immunization History Td Vaccination: Yes TDAP Vaccination: Yes Immunization Up to Date: Yes - Psycho-Social/Smoking History Smoking History: Current every day smoker Have you smoked in the past 12 months: Yes Number of Cigarettes Smoked Daily: 4 Information on smoking cessation initiated: Yes 'Breaking Loose' booklet given: 03/31/20 - Substance Abuse Hx (Audit-C & DAST Scrn) How often the patient has a drink containing alcohol: 2-3 times / week Number of drinks the patient has on a typical day: 3 or 4 How often the patient has six or more drinks on one occasion: Weekly Score: In Men: 4 or > Positive; In Women: 3 or > Positive: 7 Screen Result (Pos requires Nsg. Audit-10AR): Positive In the last yr the pt used illegal drug/Rx for NonMed reason: No Score: Yes response is considered Positive: 0 Screen Result (Positive result requires Nsg. DAST-10): Negative Review of Systems - Review of Systems Able to Perform ROS?: Yes Comments:: 05/31/20 11:11 GENERAL/CONSTITUTIONAL: No fever or chills. No weakness. HEAD, EYES, EARS, NOSE AND THROAT: No change in vision. No ear pain or discharge. No sore throat. CARDIOVASCULAR: +SOB. No chest pain, no loss of consciousness RESPIRATORY: No cough, wheezing, or hemoptysis. GASTROINTESTINAL: No nausea, vomiting, diarrhea or constipation. GENITOURINARY: No dysuria, frequency, or change in urination. MUSCULOSKELETAL: No joint or muscle swelling or pain. No neck or back pain. SKIN: No rash NEUROLOGIC: No vertigo, no change in strength/sensation. ENDOCRINE: No increased thirst. No abnormal weight change. HEMATOLOGIC/LYMPHATIC: No anemia, easy bleeding, or history of blood clots. ALLERGIC/IMMUNOLOGIC: No hives or skin allergy. *Physical Exam - Vital Signs Last Vital Signs Temp Pulse Resp BP Pulse Ox 98.2 F 107 H 22 H 183/114 H 92 L 05/31/20 10:32 05/31/20 10:32 05/31/20 10:32 05/31/20 10:32 05/31/20 10:37 - Physical Exam 05/31/20 11:23 "GENERAL: Awake, alert, and fully oriented, in no acute distress. HEAD: No signs of trauma EYES: PERRLA, EOMI, sclera anicteric, conjunctiva clear ENT: Auricles normal inspection, hearing grossly normal, nares patent, oropharynx clear without exudates. Moist mucosa NECK: Nontender, no stepoffs, Normal ROM, supple, no lymphadenopathy, JVD, or masses LUNGS: + expiratory wheezing HEART: Regular rate and rhythm, normal S1 and S2, no murmurs, rubs or gallops ABDOMEN: Soft, nontender, normoactive bowel sounds. No guarding, no rebound. No masses EXTREMITIES: Normal range of motion, no edema. No clubbing or cyanosis. No cords, erythema, or tenderness NEUROLOGICAL: Cranial nerves II through XII intact. 5/5 strength and sensation in all extremities, Normal speech, normal gait, normal cerebellar function SKIN: Warm, Dry, normal turgor, no rashes or lesions noted. ED Treatment Course - LABORATORY CBC & Chemistry Diagram: 05/31/20 11:15 05/31/20 14:00 Medical Decision Making - Medical Decision Making 05/31/20 11:23 70 M with SOB, now resolved. O2 sat 92 on RA. Pt with mild wheezing on exam. Is known smoker. Suspect asthma/COPD flare. - Labs, trop, BNP - CXR - Albuterol, steroids 05/31/20 13:36 CXR clear Pt reassessed - feels much better. Lungs clear Vitals wnl Labs show hemolyzed K, otherwise unremarkable Will repeat BMP 05/31/20 15:23 Repeat BMP wnl Pt is well appearing, with normal vitals. Clinically stable for DC at this time. I discussed the physical exam findings, ancillary test results and final diagnoses with the patient. I answered all of the patient's questions. The patient was satisfied with the care received and felt comfortable with the discharge plan and treatment plan. The patient agrees to follow up with the primary care physician within 24-72 hours. Discharge - Discharge Information Problems reviewed: Yes Clinical Impression/Diagnosis: Shortness of breath on exertion, COPD (chronic obstructive pulmonary disease), Wheezing Disposition: HOME - Additional Discharge Information Prescriptions: Albuterol Sulfate Inhaler - [Ventolin HFA Inhaler -] 1 - 2 inh PO Q4H #1 inhaler - Follow up/Referral - Patient Discharge Instructions Patient Printed Discharge Instructions: DI for Chronic Obstructive Pulmonary Disease Additional Instructions: Use the albuterol inhaler as instructed. If you experience worsening shortness of breath, chest pain, fevers, or any other concerning symptoms, return to the ER immediately. otherwise, follow up with your primary doctor within 48 hours. - Post Discharge Activity
[2020-05-31 11:47] LABS: EOS % 0.4 % (0-4.5); HEMATOCRIT 42.9 % (35.4-49); HEMOGLOBIN 13.6 GM/dL (11.7-16.9); LYMPH % 35.4 % (8-40); MCH 27.3 pg (25.7-33.7); MCHC 31.8 g/dl (32.0-35.9); MEAN CELL VOLUME 85.9 fl (80-96); MEAN PLT VOLUME 8.6 fl (7.5-11.1); MONO % 6.6 % (3.8-10.2); NEUT % 56.6 % (42.8-82.8); PLATELET COUNT 289 K/MM3 (134-434); RBC 4.99 M/mm3 (4.00-5.60); RDW 20.9 % (11.9-15.9); WHITE BLOOD COUNT 8.6 K/mm3 (4.0-10.0)
[2020-05-31 13:16] LABS: ALBUMIN 3.4 g/dl (3.4-5.0); ALK PHOS 109 U/L (45-117); ANION GAP 12 MMOL/L (8-16); BILIRUBIN,TOTAL 0.5 mg/dL (0.2-1); BLOOD UREA NITROGEN 16.7 mg/dL (7-18); CALCIUM 8.1 mg/dL (8.5-10.1); CHLORIDE 104 mmol/L (98-107); CO2 23 mmol/L (21-32); CREATININE 1.4 mg/dL (0.55-1.3); GLUCOSE,RANDOM 50 mg/dL (74-106); N-TERMINAL BNP 567.6 pg/ml (5-125); SGOT/AST 57 U/L (15-37); SGPT/ALT 18 U/L (13-61); SODIUM 140 mmol/L (136-145); TOT PROT 7.3 g/dl (6.4-8.2)
[2020-05-31 13:35] LABS: POTASSIUM 6.7 mmol/L (3.5-5.1)
[2020-05-31 13:55] LABS: ANISOCYTOSIS 1+; MACROCYTOSIS 0; PLATELET ESTIMATE NORMAL
[2020-05-31 15:07] LABS: CALCIUM 8.3 mg/dL (8.5-10.1); CREATININE 1.1 mg/dL (0.55-1.3); POTASSIUM 4.5 mmol/L (3.5-5.1)
[2020-05-31 15:09] VITALS: BP 178/105; PULSE 96
--- NOTE | 2020-06-01 12:39 | EKG ---
Test Reason : Blood Pressure : / mmHG Vent. Rate : 094 BPM Atrial Rate : 089 BPM P-R Int : 000 ms QRS Dur : 096 ms QT Int : 390 ms P-R-T Axes : 000 036 056 degrees QTc Int : 487 ms ATRIAL FIBRILLATION MINIMAL VOLTAGE CRITERIA FOR LVH, MAY BE NORMAL VARIANT SEPTAL INFARCT (CITED ON OR BEFORE 03-NOV-2019) ABNORMAL ECG WHEN COMPARED WITH ECG OF 31-MAR-2020 10:57, NONSPECIFIC T WAVE ABNORMALITY NOW EVIDENT IN INFERIOR LEADS Confirmed by AKIKO MCGRATH MD ([id number]) on 06/01/2020 12:39:07 PM Referred By: Confirmed By:AKIKO MCGRATH MD
== END 2020-05-31 15:36 | disposition home or self-care (01) ==
LOC: JER 10:17
PROC: 3E033GC Introduction of Other Therapeutic Substance into Peripheral Vein, Percutaneous Approach (ICD-10-PCS; principal; 2020-05-31)
DX: R06.02 Shortness of breath (principal); J44.9 Chronic obstructive pulmonary disease, unspecified
CPT/HCPCS: 36415; 71045-TC-FY; 80048; 80053; 82550; 82553; 83880; 84484; 85025; 93005; 93010; 99285-25

== ENCOUNTER 2020-06-01 10:55 | Emergency (ER) | payer OTHER ==
[2020-06-01 11:19] VITALS: TEMP 98.6; BMI 26.2
--- NOTE | 2020-06-01 11:40 | PDOC ---
History of Present Illness - General Chief Complaint: Syncope/Near Syncope Stated Complaint: FALL/SYNCOPE Time Seen by Provider: 06/01/20 11:27 History Source: Patient, Old Records (Pt seen in this department for EtOH abuse twice in the past two days.) Exam Limitations: No Limitations - History of Present Illness Initial Comments: 70 y/o male presenting to [facility] ER complaining of resolved episode of generalized weakness to arms and legs. Pt stated he was talking to see his daughter when suddenly my arms and legs got weak. Fell to the floor but denies LOC or striking his head or neck. Called 911 because he just couldnt get off the floor. Denies any prodromal symptoms including trauma, headache, neck pain, chest pain, SOB, abdominal pain, or back pain. States he drank 2 oz of alcohol today. Denies any street drug usage. Social Hx: - EtOH: Daily drinker - Tobacco: 3 cigarettes per day (down from 1 pack) - Street Drugs: Denies - Lives in the same dwelling as his daughter Past History - Medical History Allergies/Adverse Reactions: Allergies Allergy/AdvReac Type Severity Reaction Status Date / Time lisinopril Allergy Severe Swelling Verified 05/31/20 10:32 enalapril Allergy Swelling Verified 05/31/20 10:32 Home Medications: Ambulatory Orders Hydralazine HCl 10 mg PO DAILY 01/27/20 Apixaban [Eliquis] 5 mg PO BID 02/18/20 Metoprolol Succinate 75 mg PO BID 03/23/20 Albuterol Sulfate Inhaler - [Ventolin HFA Inhaler -] 1 - 2 inh PO Q4H #1 inhaler 05/31/20 Anemia: No Asthma: No Cancer: No Cardiac Disorders: Yes (Afib (on Eliquis), [facility]) CVA: No COPD: Yes CHF: No DVT: No Dementia: No Diabetes: No Dialysis: No GI Disorders: No Disorders: No HTN: Yes Hypercholesterolemia: Yes Kidney Stones: No Liver Disease: No Psychiatric Problems: Yes (Alcohol Use Disorder) Seizures: Yes (09/2018 hospitalization) Thyroid Disease: No Lung CA: No - Surgical History Abdominal Surgery: No Appendectomy: No Cardiac Surgery: No Cholecystectomy: No Gastric Stapling: No GI Surgery: No Lung Surgery: No Neurologic Surgery: No - Immunization History Td Vaccination: Yes TDAP Vaccination: Yes Immunization Up to Date: Yes - Psycho-Social/Smoking History Smoking History: Current every day smoker Have you smoked in the past 12 months: Yes Number of Cigarettes Smoked Daily: 3 Information on smoking cessation initiated: No 'Breaking Loose' booklet given: 03/31/20 - Substance Abuse Hx (Audit-C & DAST Scrn) How often the patient has a drink containing alcohol: 4 0r more times/wk Number of drinks the patient has on a typical day: 1 or 2 How often the patient has six or more drinks on one occasion: Never Score: In Men: 4 or > Positive; In Women: 3 or > Positive: 4 Screen Result (Pos requires Nsg. Audit-10AR): Positive In the last yr the pt used illegal drug/Rx for NonMed reason: No Score: Yes response is considered Positive: 0 Screen Result (Positive result requires Nsg. DAST-10): Negative Review of Systems - Review of Systems Able to Perform ROS?: Yes Comments:: 10 point review of systems completed. All systems negative except as noted above. *Physical Exam - Vital Signs Last Vital Signs Temp Pulse Resp BP Pulse Ox 98.6 F 98 H 19 155/107 H 100 06/01/20 11:11 06/01/20 11:11 06/01/20 11:11 06/01/20 11:11 06/01/20 11:11 - Physical Exam Vital signs and nursing notes reviewed. Constitutional- Tall, thin, nontoxic adult male in no acute distress or obvious discomfort. Found semi-fowlers on hospital hallway bed. Answered all questions appropriately and completely. Head- Normocephalic. No obvious external signs of trauma. Eyes- Pupils 3mm PERRL bilaterally. EOMI. No nystagmus. Sclerae white. Conjunctiva moist and not injected. Ears- Hearing grossly intact. Neck- Supple, trachea is midline. No midline c-spine tenderness. Able to laterally rotate neck >45 degrees to right and left. Cardiovascular / Chest- Regular rate and regular rhythm. No murmur, rubs, clicks, or gallops. Peripheral pulses- radial pulses full. Respiratory- Breathing unlabored. Speaking in multi-word responses without pausing. Equal chest rise and fall. Clear to auscultation bilaterally. No stridor, no wheezing, no rhonchi. Gastrointestinal- abdomen is soft, non-tender, non-distended. Pelvis stable and nontender with lateral compression. Neuro- Alert and oriented x4. Moving all four extremities spontaneously. No facial asymmetry. No slurred speech. No focal deficits. No upper or lower extremity drift. Cranial nerves intact. Sensation to all four extremities intact. Proximal and distal strength 5/5. Computer Programmer strength 5/5 - equal and symmetric. Plantar flexion and dorsiflexion 5/5. No nuchal rigidity. Intact rapid alternating movements. Non-tremulous. No tongue fasciculations. Skin- Warm, dry, and intact. Psych- Affect- appropriate. Mood- normal. Speech was non-labored, non- pressured. ED Treatment Course - LABORATORY CBC & Chemistry Diagram: 06/01/20 12:55 06/01/20 12:55 - RADIOLOGY Radiology Studies Ordered: Category Date Time Status CHEST PA & LAT [RAD] Stat Radiology 06/01/20 11:38 Ordered Medical Decision Making - Medical Decision Making 70 y/o male presenting for brief and self resolving episode of weakness to arms and legs. No concerning prodromal symptoms reported. Vital signs unremarkable for hypotension, tachycardia, or hypoxia. EKG unremarkable for ischemic findings. Physical exam as described above. No obvious signs of trauma. Labs remarkable for elevated EtOH level, suspect pt has consumed more than the reported 2oz of alcohol and that this may be the cause of the episode. CXR unremarkable for acute pathology. Pt noted to be hypertensive at multiple times during the ED course. No evidence of end organ damage. Low suspicion for relevance to acute complaint. Will encourage pt to f/u w/ PCP for further workup. Explained importance of blood pressure control. Pt reports not taking his antihypertensives for the past 2 days. Pt observed ambulating through the department assisted only by his home cane. Discussed physical exam findings, laboratory results, and xrays findings with pt. Answered all questions. Provided return precautions. pt expressed verbal understanding and agreement with plan to discharge home with outpatient follow up. Provided copies of todays results. Case discussed with ED Attending Dr. Cartagena. Monty Vazquez M.D., PGY3 Emergency Medicine Residency Discharge - Discharge Information Problems reviewed: Yes Clinical Impression/Diagnosis: Weakness generalized Alcohol intoxication Qualifiers: Complication of substance-induced condition: uncomplicated Qualified Code(s): F10.920 - Alcohol use, unspecified with intoxication, uncomplicated Condition: Good Disposition: HOME - Admission No - Follow up/Referral Referrals: [facility] Sabillon [facility] [Primary Care Provider[facility] - Patient Discharge Instructions Patient Printed Discharge Instructions: DI for Syncope in Adults (Fainting), DI for Alcohol Use Disorder Additional Instructions: You were seen today for temporarily weakness in your arms or legs. Your physical exam and vital signs were normal in the department. Your lab tests were normal aside from an elevated alcohol level. This could be the cause of your temporaril y weakness. You need to stop drinking. I have attached a packet of information and a referral for our alcohol treatment program. Your blood pressure was elevated today in the emergency department. This is not likely to be the cause of your symptoms. However, you should discuss your blood pressure with your primary care doctor. It may be time to change or restart your medication. You should follow up with your primary care doctor within the next 2-3 business days. You will need to call to make an appointment. The number is included in this packet. A copy of todays results are attached to this packet. Take it to the appointment so your doctor can review them. Return to the ED for new or worsening symptoms. Print Language: SETSWANA - Post Discharge Activity
[2020-06-01] MEDS ORDERED: THIAMINE HCL 200 MG/2 ML VIAL IM ONE (12:21)
[2020-06-01] MEDS ORDERED: THIAMINE HCL 200 MG/2 ML VIAL ONE (12:33)
[2020-06-01 13:36] LABS: HEMATOCRIT 41.6 % (35.4-49); HEMOGLOBIN 13.3 GM/dL (11.7-16.9); LYMPH % 21.2 % (8-40); MCH 27.3 pg (25.7-33.7); MCHC 31.9 g/dl (32.0-35.9); MEAN CELL VOLUME 85.8 fl (80-96); MEAN PLT VOLUME 8.3 fl (7.5-11.1); MONO % 6.4 % (3.8-10.2); NEUT % 72.4 % (42.8-82.8); PLATELET COUNT 259 K/MM3 (134-434); RBC 4.85 M/mm3 (4.00-5.60); RDW 20.4 % (11.9-15.9); WHITE BLOOD COUNT 4.6 K/mm3 (4.0-10.0)
[2020-06-01 14:09] LABS: CHLORIDE 104 mmol/L (98-107); POTASSIUM 4.4 mmol/L (3.5-5.1); SODIUM 143 mmol/L (136-145)
[2020-06-01 14:11] LABS: CALCIUM 8.8 mg/dL (8.5-10.1)
[2020-06-01 14:20] LABS: ALBUMIN 3.7 g/dl (3.4-5.0); ALK PHOS 104 U/L (45-117); ANION GAP 11 MMOL/L (8-16); BILIRUBIN,TOTAL 0.8 mg/dL (0.2-1); BLOOD UREA NITROGEN 13.3 mg/dL (7-18); CO2 27 mmol/L (21-32); CREATININE 1.2 mg/dL (0.55-1.3); GLUCOSE,RANDOM 117 mg/dL (74-106); PHOSPHOROUS 2.3 mg/dL (2.5-4.9); SGOT/AST 25 U/L (15-37); SGPT/ALT 17 U/L (13-61); TOT PROT 7.3 g/dl (6.4-8.2)
[2020-06-01 14:45] VITALS: BP 174/120; PULSE 69
--- NOTE | 2020-06-01 15:04 | PDOC ---
Documentation entered by Mariza Contreras SCRIBE, acting as scribe for Doreen Cartagena MD. Doreen Cartagena MD: This documentation has been prepared by the Ben dumont Xhesika, SCRIBE, under my direction and personally reviewed by me in its entirety. I confirm that the documentation accurately reflects all work, treatment, procedures, and medical decision making performed by me. Attending Attestation - Resident Resident Name: Monty Vazquez - HPI HPI: 06/01/20 11:42 The patient is a 70 year old male, with a significant PMH of HLD, HTN, COPD (not on home O2), Afib (on eliquis) and chronic alcohol/nicotine use who presents to the emergency department BIBA s/p fall. Pt state he was walking to see his daughter when he endorsed generalized weakness to his arms and legs and fell to the floor. Pt denies LOC or hitting his head. Pt was seen here last night for SOB. Pt states he drank 2oz of alcohol today. The patient denies chest pain, shortness of breath, headache and dizziness. Denies fever, chills, cough, nausea, vomiting, diarrhea. Allergies: enalapril, lisinopril - Physicial Exam PE: 06/01/20 15:01 Agree with resident exam. patient is alert and oriented x 3, neurologically intact and ambulatory with steady gait. Clinically sober. 06/01/20 15:02 - Medical Decision Making 06/01/20 15:03 Pt presented to the Ed complaining of weakness in his arms and legs after drinking. Patient is neurologically intact and clinically sober in the ED. Plan was to check labs and discharge patient if labs were normal, but patient left AMA. Understood the risk of anemia, electrolyte disturbance and . Discharge - Discharge Information Problems reviewed: Yes Clinical Impression/Diagnosis: Weakness generalized Alcohol intoxication Qualifiers: Complication of substance-induced condition: uncomplicated Qualified Code(s): F10.920 - Alcohol use, unspecified with intoxication, uncomplicated Condition: Good Disposition: HOME - Follow up/Referral Referrals: [facility] [Other] (Alcohol [facility]) Donald Sabillon MD [Primary Care Provider] - - Patient Discharge Instructions Patient Printed Discharge Instructions: DI for Syncope in Adults (Fainting), DI for Alcohol Use Disorder Additional Instructions: You were seen today for temporarily weakness in your arms or legs. Your physical exam and vital signs were normal in the department. Your lab tests were normal aside from an elevated alcohol level. This could be the cause of your temporarily weakness. You need to stop drinking. I have attached a packet of information and a referral for our alcohol treatment program. Your blood pressure was elevated today in the emergency department. This is not likely to be the cause of your symptoms. However, you should discuss your blood pressure with your primary care doctor. It may be time to change or restart your medication. You should follow up with your primary care doctor within the next 2-3 business days. You will need to call to make an appointment. The number is included in this packet. A copy of todays results are attached to this packet. Take it to the appointment so your doctor can review them. Return to the ED for new or worsening symptoms. Print Language: ICELANDIC - Post Discharge Activity
--- NOTE | 2020-06-01 16:45 | EKG ---
Test Reason : Blood Pressure : / mmHG Vent. 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
== END 2020-06-01 14:51 | disposition home or self-care (01) ==
LOC: JER 10:55 → SUPCPDRO 10:55 → JER 14:51
PROC: 3E023GC Introduction of Other Therapeutic Substance into Muscle, Percutaneous Approach (ICD-10-PCS; principal; 2020-06-01)
DX: F10.920 Alcohol use, unspecified with intoxication, uncomplicated (principal); R53.1 Weakness
CPT/HCPCS: 36415; 71046-TC-FY; 80053; 80307; 83735; 84100; 84484; 85025; 93005; 93010; 99285-25

== ENCOUNTER 2020-06-02 18:42 | Emergency (ER) | payer OTHER ==
[2020-06-02 19:18] VITALS: BP 124/79; PULSE 92; TEMP 98.3; BMI 20.7
--- NOTE | 2020-06-02 19:34 | PDOC ---
History of Present Illness - General Chief Complaint: Weakness Stated Complaint: Weakness Time Seen by Provider: 06/02/20 19:34 - History of Present Illness Initial Comments: HPI: 70yo M with PMH of HLD, HTN, COPD (not on home O2), Afib (on eliquis) and chronic alcohol/nicotine use complaining of bilateral leg weakness x 1 year. Patient is concerned the muscle weakness may be a side effect of the eliquis he started about one year ago. Presented yesterday to this ED for the same complaint. States the shot of vitamins that he received yesterday improved his strength. Endorses a poor diet. His daughter lives in the same building as him. Has an appointment to see his primary care physician on 06/16/20. Denies recent weight changes. No fevers or chills. ROS: Constitutional: no fever, no chills HEENT: no throat pain, no dysphagia Cardiovascular: no chest pain, no palpitations Respiratory: no cough, no shortness of breath Gastrointestinal: no abdominal pain, no nausea Genitourinary: no dysuria, no hematuria Musculoskeletal: no myalgia, +leg weakness Skin: no rash, no itching Neurologic: no headache, no syncope Psych: no agitation, no anxiety PE: General: Awake, alert, and fully oriented, in no acute distress Head: No signs of trauma Eyes: EOMI, sclera anicteric ENT: Moist mucus membranes Neck: Normal ROM, supple Lungs: Lungs clear, Normal breath sounds Cardio: Regular rhythm, S1 and S2 present Abdomen: Soft, nontender Extremities: Normal range of motion, Distal pulses present Skin: Warm, Dry, normal turgor Neurologic: Cranial nerves II through XII intact. Normal speech, sensation, strength, coordination, and gait. ED Course/MDM: DDX including but not limited to anemia, metabolic derangement, CVA/TIA, nutritional deficiency, malignancy Ambulating with steady gait Nonfocal neurologic exam 06/02/20 19:34 Patient unable to be found by NEIL Acosta Not in stretcher Eloped 06/02/20 21:17 Past History - Medical History Allergies/Adverse Reactions: Allergies Allergy/AdvReac Type Severity Reaction Status Date / Time lisinopril Allergy Severe Swelling Verified 06/02/20 19:18 enalapril Allergy Swelling Verified 06/02/20 19:18 Home Medications: Ambulatory Orders Hydralazine HCl 10 mg PO DAILY 01/27/20 Apixaban [Eliquis] 5 mg PO BID 02/18/20 Metoprolol Succinate 75 mg PO BID 03/23/20 Albuterol Sulfate Inhaler - [Ventolin HFA Inhaler -] 1 - 2 inh PO Q4H #1 inhaler 05/31/20 Anemia: No Asthma: No Cancer: No Cardiac Disorders: Yes (Afib (on Eliquis), [facility]) CVA: No COPD: Yes CHF: No DVT: No Dementia: No Diabetes: No Dialysis: No GI Disorders: No Disorders: No HTN: Yes Hypercholesterolemia: Yes Kidney Stones: No Liver Disease: No Psychiatric Problems: Yes (Alcohol Use Disorder) Seizures: Yes (09/2018 hospitalization) Thyroid Disease: No Lung CA: No - Surgical History Abdominal Surgery: No Appendectomy: No Cardiac Surgery: No Cholecystectomy: No Gastric Stapling: No GI Surgery: No Lung Surgery: No Neurologic Surgery: No - Immunization History Td Vaccination: Yes TDAP Vaccination: Yes Immunization Up to Date: Yes - Psycho-Social/Smoking History Smoking History: Never smoked Have you smoked in the past 12 months: No Number of Cigarettes Smoked Daily: 3 Information on smoking cessation initiated: No 'Breaking Loose' booklet given: 03/31/20 - Substance Abuse Hx (Audit-C & DAST Scrn) How often the patient has a drink containing alcohol: Never Score: In Men: 4 or > Positive; In Women: 3 or > Positive: 0 Screen Result (Pos requires Nsg. Audit-10AR): Negative In the last yr the pt used illegal drug/Rx for NonMed reason: No Score: Yes response is considered Positive: 0 Screen Result (Positive result requires Nsg. DAST-10): Negative *Physical Exam - Vital Signs Last Vital Signs Temp Pulse Resp BP Pulse Ox 98.3 F 92 H 18 124/79 98 06/02/20 19:16 06/02/20 19:16 06/02/20 19:16 06/02/20 19:16 06/02/20 19:16 Discharge - Discharge Information Problems reviewed: Yes Clinical Impression/Diagnosis: Leg weakness, bilateral Condition: Fair Disposition: LEFT BEFORE MITRA PAREDES - Follow up/Referral Referrals: Donald Sabillon MD [Primary Care Provider] - - Patient Discharge Instructions - Post Discharge Activity
[2020-06-02] MEDS ORDERED: THIAMINE HCL 200 MG/2 ML VIAL IM ONE (20:10)
== END 2020-06-02 21:00 | disposition left against medical advice (07) ==
LOC: JER 18:42
PROC: 3E023NZ Introduction of Analgesics, Hypnotics, Sedatives into Muscle, Percutaneous Approach (ICD-10-PCS; principal; 2020-06-02)
DX: R53.1 Weakness (principal)
CPT/HCPCS: 99284-25

== ENCOUNTER 2020-06-27 13:31 | Emergency (ER) | payer OTHER ==
--- NOTE | 2020-06-27 14:05 | PDOC ---
History of Present Illness - General Chief Complaint: Shortness of Breath Stated Complaint: BLOOD PRESSURE PROBLEM Time Seen by Provider: 06/27/20 14:04 Past History - Medical History Allergies/Adverse Reactions: Allergies Allergy/AdvReac Type Severity Reaction Status Date / Time lisinopril Allergy Severe Swelling Verified 06/02/20 19:18 enalapril Allergy Swelling Verified 06/02/20 19:18 Home Medications: Ambulatory Orders Hydralazine HCl 10 mg PO DAILY 01/27/20 Apixaban [Eliquis] 5 mg PO BID 02/18/20 Metoprolol Succinate 75 mg PO BID 03/23/20 Albuterol Sulfate Inhaler - [Ventolin HFA Inhaler -] 1 - 2 inh PO Q4H #1 inhaler 05/31/20 Anemia: No Asthma: No Cancer: No Cardiac Disorders: Yes (Afib (on Eliquis), C) CVA: No COPD: Yes CHF: No DVT: No Dementia: No Diabetes: No Dialysis: No GI Disorders: No Disorders: No HTN: Yes Hypercholesterolemia: Yes Kidney Stones: No Liver Disease: No Psychiatric Problems: Yes (Alcohol Use Disorder) Seizures: Yes (09/2018 hospitalization) Thyroid Disease: No Lung CA: No - Surgical History Abdominal Surgery: No Appendectomy: No Cardiac Surgery: No Cholecystectomy: No Gastric Stapling: No GI Surgery: No Lung Surgery: No Neurologic Surgery: No - Immunization History Td Vaccination: Yes TDAP Vaccination: Yes Immunization Up to Date: Yes - Psycho-Social/Smoking History Smoking History: Current every day smoker Have you smoked in the past 12 months: No Number of Cigarettes Smoked Daily: 3 Information on smoking cessation initiated: No 'Breaking Loose' booklet given: 03/31/20 - Substance Abuse Hx (Audit-C & DAST Scrn) How often the patient has a drink containing alcohol: Monthly or less Number of drinks the patient has on a typical day: 1 or 2 How often the patient has six or more drinks on one occasion: Less than monthly Score: In Men: 4 or > Positive; In Women: 3 or > Positive: 2 Screen Result (Pos requires Nsg. Audit-10AR): Negative In the last yr the pt used illegal drug/Rx for NonMed reason: No Score: Yes response is considered Positive: 0 Screen Result (Positive result requires Nsg. DAST-10): Negative *Physical Exam - Vital Signs Last Vital Signs Temp Pulse Resp BP Pulse Ox 97.9 F 66 16 151/89 96 06/27/20 13:58 06/27/20 13:58 06/27/20 13:58 06/27/20 13:58 06/27/20 13:58 Discharge - Discharge Information Condition: Stable - Follow up/Referral - Patient Discharge Instructions - Post Discharge Activity
--- OUTSIDE RECORDS SUMMARY | 2020-06-27 14:06 | XMS ---
:1950 Author Organization [facility] Care Team Providers Name Role Phone Donald Sabillon MD Unavailable Unavailable Donald Sabillon MD Unavailable Unavailable Donald Sabillon MD Unavailable Unavailable Donald Sabillon MD Unavailable Unavailable Donald Sabillon MD Unavailable Unavailable Donald Sabillon MD Unavailable Unavailable Donald Sabillon MD Unavailable Unavailable Donald Sabillon MD Unavailable Unavailable ED STAFF PHYSICIANAMARA Unavailable Unavailable Herrera Valencia Unavailable [phone] ED STAFF PHYSICIAN Unavailable Unavailable ED STAFF PHYSICIAN, STAFF Unavailable Unavailable MARCELLE MARCO, MARCO Unavailable Unavailable ED STAFF PHYSICIAN Unavailable Unavailable ED STAFF PHYSICIANMADAN Unavailable Unavailable ED STAFF PHYSICIANSIOMARA Unavailable Unavailable KEON JESUS Unavailable Unavailable ED STAFF PHYSICIAN Unavailable Unavailable ED STAFF PHYSICIAN Unavailable Unavailable AIDAN Joaquin Unavailable Unavailable ED STAFF PHYSICIAN Unavailable Unavailable Moe, Osama Unavailable Unavailable Moe, Osama Unavailable Unavailable Moe, Osama Unavailable Unavailable Moe, Osama Unavailable Unavailable Moe, Osama Unavailable Unavailable Moe, Osama Unavailable Unavailable Moe, Osama Unavailable Unavailable Moe, Osama Unavailable Unavailable Moe, Osama Unavailable Unavailable Moe, Osama Unavailable Unavailable Moe, Osama Unavailable Unavailable Moe, Osama Unavailable Unavailable Moe, Osama Unavailable Unavailable Moe, Osama Unavailable Unavailable Moe, Osama Unavailable Unavailable Marcelle MD, Marco Unavailable Unavailable Marcelle MD, Marco Unavailable Unavailable ED STAFF PHYSICIAN Unavailable Unavailable ED STAFF PHYSICIAN, ASMA Unavailable Unavailable Re-disclosure Warning The records that you are about to access may contain information from federally- assisted alcohol or drug abuse programs. If such information is present, then the following federally mandated warning applies: This information has been disclosed to you from records protected by federal confidentiality rules (42 CFR part 2). The federal rules prohibit you from making any further disclosure of this information unless further disclosure is expressly permitted by the written consent of the person to whom it pertains or as otherwise permitted by 42 CFR part 2. A general authorization for the release of medical or other information is NOT sufficient for this purpose. The Federal rules restrict any use of the information to criminally investigate or prosecute any alcohol or drug abuse patient.The records that you are about to access may contain highly sensitive health information, the redisclosure of which is protected by Article 27-F of the [facility] Public Health law. If you continue you may haveaccess to information: Regarding HIV / AIDS; Provided by facilities licensed or operated by the [facility] Office of Mental Health; or Provided by the [facility] Office for People With Developmental Disabilities. If such information is present, then the following [facility] mandated warning applies: This information has been disclosed to you from confidential records which are protected by state law. State law prohibits you from making any further disclosure of this information without the specific written consent of the person to whom it pertains, or as otherwise permitted by law. Any unauthorized further disclosure in violation of state law may result in a fine or fci sentence or both. A general authorization for the release of medical or other information is NOT sufficient authorization for further disclosure. Allergies and Adverse Reactions Type Description Substance Reaction Status Data Source(s ) Drug allergy Lisinopril Lisinopril rash Active eCW1 ([facility]) Adverse Reaction Lisinopril Lisinopril rash Active eCW1 ( [facility]) No Information No Information No Information eC W1 ([facility]) No Information No Information No Information eC W1 ([facility]) No Information No Information No Information eC W1 ([facility]) Propensity to Propensity to No Known allergies eCW1 ([facility] adverse reactions adverse reactions [facility] Medical (disorder) (disorder) Practice ) Encounters Encounter Providers Location Date Indications Data Source(s ) (TEL) [address] 06/02/2020 eCW1 ([place] 12:[facility] Outpatient Attender: MARCO H 05/25/2020 [facility] juarezs MARCELLE 12:00:00 PM Medical Cent[facility] r ARNABAdmitter: EDT MARCO MARCELLE MARCO Attender: Marco Positive 05/25/2020 [facility] ( [facility] D[facility] 12:[facility]:00 [facility] - Center) 05/25/2020 12:00:00 PM EDT Emergency Attender: STAFF H 05/01/2020 [facility] ED STAFF 09:21:00 PM Medical Cente r PHYSICIAN EDT - 05/02/2020 07:50:00 AM EDT Patient discharged. Emergency Attender: ED STAFF H 05/01/2020 03:28:00 AM [facility] PHYSICIANAttender: STAFF ED EDT - 05/01/2020 [facility] STAFF PHYSICIANAdmitter: ED 05:36:00 AM EDT STAFF PHYSICIAN Patient discharged. Emergency Attender: ED STAFF H 04/30/2020 07:05:00 PM [facility] PHYSICIANAttender: STAFF ED EDT - 04/30/2020 [facility] STAFF PHYSICIANAdmitter: ED 11:21:00 PM EDT STAFF PHYSICIAN Patient discharged. Emergency Attender: MADAN ED STAFF H 03/30/2020 07:35:00 PM [facility] PHYSICIANAttender: STAFF ED EDT - 03/30/2020 [facility] STAFF PHYSICIANAdmitter: MADAN 08:50:00 PM EDT ED STAFF PHYSICIAN Patient discharged. Emergency Attender: MADAN ED STAFF H 03/29/2020 04:28:00 PM [facility] PHYSICIANAttender: ED STAFF EDT - 03/29/2020 [facility] PHYSICIANAttender: STAFF ED 08:45:00 PM EDT STAFF PHYSICIANAdmitter: MADAN ED STAFF PHYSICIAN Patient discharged. [address] 03/27/2020 eCW1 (S aint Office [facility] 12:00:[address] [facility]) Emergency Attender: MADAN H 03/09/2020 [facility] ED STAFF 04:23:00 PM EDT - [facility] PHYSICIANAttender 03/09/2020 : STAFF ED STAFF 10:49:00 PM EDT PHYSICIANAdmitter : [facility] ED STAFF PHYSICIAN Patient discharged. Emergency Attender: ED STAFF H 02/20/2020 08:56:00 PM [facility] PHYSICIANAttender: ED STAFF EDT - 02/20/2020 [facility] PHYSICIANAttender: STAFF ED 10:50:00 PM EDT STAFF PHYSICIANAdmitter: ED STAFF PHYSICIANReferrer: STAFF ED STAFF PHYSICIAN Patient discharged. Emergency Attender: MADAN ED STAFF H 02/08/2020 05:07:00 PM [facility] PHYSICIANAttender: AMARA ED EDT - 02/08/2020 [facility] STAFF PHYSICIANAttender: STAFF 06:02:00 PM EDT ED STAFF PHYSICIANAdmitter: [facility] ED STAFF PHYSICIAN Patient discharged. Emergency Attender: ED STAFF H 02/06/2020 06:33:00 PM [facility] PHYSICIANAttender: STAFF ED EDT - 02/06/2020 [facility] STAFF PHYSICIANAdmitter: ED 11:16:00 PM EDT STAFF PHYSICIAN Patient discharged. Emergency Attender: [facility] ED STAFF H 02/01/2020 01:51:00 PM [facility] PHYSICIANAttender: STAFF ED EDT - 02/01/2020 [facility] STAFF PHYSICIANAdmitter: MADAN 05:09:00 PM EDT ED STAFF PHYSICIAN Patient discharged. Emergency Attender: AIDAN Yu 01/29/2020 01:19:00 PM [facility] KAttender: STAFF ED STAFF EDT - 01/29/2020 [facility] PHYSICIANAdmitter: AIDAN 10:03:00 PM EDT MILTON Joaquin Patient discharged. Emergency Attender: ED STAFF 01/24/2020 05:35:00 PM [facility] PHYSICIANAttender: STAFF ED EDT - 01/24/2020 [facility] STAFF PHYSICIANAdmitter: ED 08:46:00 PM EDT STAFF PHYSICIAN Patient discharged. Emergency Attender: ED STAFF H 01/22/2020 10:03:00 PM [facility] PHYSICIANAttender: STAFF ED EDT - 01/22/2020 [facility] STAFF PHYSICIANAdmitter: ED 11:37:00 PM EDT STAFF PHYSICIAN Patient discharged. [address] 01/07/2020 eCW1 (S aint Office [facility] [address] 01/06/2020 eCW1 (S aint Office [facility] Street [facility] Emergency Attender: AMARA Yu 01/03/2020 [facility] ED STAFF 06:01:00 AM EDT - [facility] PHYSICIANAttender 01/03/2020 : STAFF ED STAFF 11:18:00 AM EDT PHYSICIANAdmitter : AMARA ED STAFF PHYSICIAN Patient discharged. Emergency Attender: ED STAFF H 01/01/2020 07:56:00 AM [facility] PHYSICIANAttender: STAFF ED EDT - 01/01/2020 [facility] [place] STAFF PHYSICIAN 03:06:00 PM EDT Patient discharged. Emergency Attender: MADAN ED STAFF H 12/30/2019 12:09:00 PM [facility] PHYSICIANAttender: STAFF ED EDT - 12/30/2019 [facility] STAFF PHYSICIANAdmitter: MADAN 10:59:00 PM EDT ED STAFF PHYSICIAN Patient discharged. Emergency Attender: MADAN ED STAFF H 12/03/2019 01:29:00 PM [facility] PHYSICIANAttender: ED STAFF EDT - 12/03/2019 [facility] PHYSICIANAttender: STAFF ED 07:01:00 PM EDT STAFF PHYSICIANAdmitter: MADAN ED STAFF PHYSICIAN Patient discharged. Emergency Attender: MADAN ED STAFF H 11/30/2019 05:59:00 PM [facility] PHYSICIANAttender: STAFF ED EDT - 11/30/2019 [facility] STAFF PHYSICIANAdmitter: MADAN 10:20:00 PM EDT ED STAFF PHYSICIAN Patient discharged. [address] 11/25/2019 eCW1 (S aint Office [facility] 12:00:00 AM [facility]) Emergency Attender: MADAN Yu 11/04/2019 [facility] ED STAFF 04:09:00 PM [facility] - [facility] PHYSICIANAttender 11/04/2019 : STAFF ED STAFF 07:26:00 PM EST PHYSICIANAdmitter : MADAN ED STAFF PHYSICIAN Patient discharged. Emergency Attender: MADAN ED STAFF H 11/02/2019 03:12:00 PM [facility] PHYSICIANAttender: STAFF ED EST - 11/02/2019 [facility] STAFF PHYSICIANAdmitter: MADAN 06:35:00 PM EST ED STAFF PHYSICIAN Patient discharged. Emergency Attender: AMARA ED STAFF H 11/02/2019 09:16:00 AM [facility] PHYSICIANAttender: STAFF ED EST - 11/02/2019 [facility] STAFF PHYSICIANAdmitter: 11:12:00 AM EST [place] ED STAFF PHYSICIAN Patient discharged. Emergency Attender: AMARA ED STAFF H 11/01/2019 03:26:00 PM [facility] PHYSICIANAttender: STAFF ED EST - 11/01/2019 [facility] STAFF PHYSICIANAdmitter: 04:59:00 PM EST [place] ED STAFF PHYSICIAN Patient discharged. Inpatient Attender: KEON HERBERT H-HAL5 11/01/2019 08:57:00 [facility] YAttender: STAFF ED STAFF AM EST - 11/01/2019 [facility] PHYSICIANAdmitter: KEON GONZALES 01:59:00 PM EST KEON YReferrer: KEON HERBERT Y Patient discharged. Emergency Attender: MADAN ED STAFF H 10/31/2019 02:52:00 PM [facility] PHYSICIANAttender: STAFF ED EST - 10/31/2019 [facility] STAFF PHYSICIANAdmitter: MADAN 04:39:00 PM EST ED STAFF PHYSICIAN Patient discharged. Emergency Attender: STAFF ED STAFF H 10/29/2019 10:51:00 PM [facility] PHYSICIAN EST - 10/30/2019 10:47:00 [place] PM EST Patient discharged. Emergency Attender: ED STAFF H 10/29/2019 02:27:00 PM [facility] PHYSICIANAttender: STAFF ED EST - 10/29/2019 [facility] STAFF PHYSICIANAdmitter: ED 05:28:00 PM EST STAFF PHYSICIAN Patient discharged. [address] 09/24/2019 eCW1 (S aint Office [facility] Street [facility] 12:00:[address] [facility]) Emergency Attender: AMARA Yu 09/06/2019 [facility] ED STAFF 05:21:00 PM [facility] - [facility] PHYSICIANAttender 09/06/2019 : STAFF ED STAFF 08:10:00 PM EST PHYSICIANAdmitter : [place] ED STAFF PHYSICIAN Patient discharged. Emergency Attender: ED STAFF H 09/03/2019 10:20:00 PM [facility] PHYSICIANAttender: STAFF ED EST - 09/04/2019 [facility] STAFF PHYSICIANAdmitter: ED 04:00:00 PM EST STAFF PHYSICIAN Patient discharged. Inpatient Attender: KEON GONZALES KEON H-HAL5 08/30/2019 06:16:00 [facility] YAttender: STAFF ED STAFF PM EST - 08/31/2019 [facility] PHYSICIANAdmitter: SEIN CHRISTIAN 10:35:00 AM EST KEON YReferrer: KEON HERBERT Y Patient discharged. Emergency Attender: MADAN ED STAFF H 08/29/2019 04:21:00 PM [facility] PHYSICIANAttender: STAFF ED EST - 08/29/2019 [facility] STAFF PHYSICIANAdmitter: MADAN 09:56:00 PM EST ED STAFF PHYSICIAN Patient discharged. Emergency Attender: SIOMARA ED STAFF H 08/28/2019 12:52:00 PM [facility] PHYSICIANAttender: STAFF ED EST - 08/29/2019 [facility] STAFF PHYSICIANAdmitter: SIOMARA 12:01:00 AM EST ED STAFF PHYSICIAN Patient discharged. Emergency Attender: STAFF ED STAFF H 08/06/2019 01:17:00 AM [facility] PHYSICIAN EST - 08/06/2019 03:36:00 Center AM EST Patient discharged. [address] [place] 07/26/2019 12:00:00 AM eCW1 ([facility] Office [facility] Medical Pract ice ) Emergency H 06/26/2019 06:50:00 AM [facility] EDT - 06/26/2019 [facility] 09:44:00 AM EDT Patient discharged. Outpatient Attender: Donald Yu 03/26/2019 [facility] MDAdmitter: 11:03:00 AM EDT Medical Center Donald Sabillon MDReferrer: Donald Sabillon MD [facility]ender: [facility] 03/26/2019 NEXT N ([facility] 11:03:00 AM EDT [facility] 03/26/2019 Center) 11:03:00 AM EDT [address] 03/26/2019 eCW1 (S aint Office [facility] 12:00:00 AM EDT [facility]) [address] 03/10/2019 eCW1 (S aint Office [facility] [address] [facility] 12:00:00 AM EDT [facility] Medical Practice ) Emergency H 02/12/2019 [facility] 11:47:00 PM EDT Medical C enter Emergency H 02/12/2019 [facility] 03:38:00 PM EDT Medical C enter Emergency H 02/04/2019 [facility] 08:03:00 PM EDT Medical C enter [facility] [address] 01/28/2019 eCW1 (S aint [facility] 12:00:00 AM EDT [facility]) [address] 01/21/2019 eCW1 (S [facility]int [facility] 12:00:00 AM EDT - [facility] 01/21/2019 Practice PC) 12:00:00 AM EDT [address] [place] [address] [address] 01/21/2019 eCW1 (S [facility]int [facility] 12:00:00 AM EDT [facility]) [address] [address] [address] 01/14/2019 eCW1 ([facility]int [facility] 01:15:00 PM EDT - [facility] Medical 01/14/2019 Practice PC) 01:15:00 PM EDT [address] 01/14/2019 eCW1 (S [facility] 10:15:00 AM EDT - [facility] 01/14/2019 Practice PC) 10:15:00 AM EDT [address] [address] [address] 01/11/2019 eCW1 (S [facility]int [facility] 12:00:00 AM EDT [facility]) Inpatient Attender: Osama H-STEP 01/07/2019 [facility] SayeghAdmitter: 04:14:00 AM EDT - [facility] Center Osari 01/12/2019 Onofreeferrer: 03:41:00 PM EDT [facility] Emergency H 01/06/2019 [facility] 07:58:00 PM EDT Medical C enter Emergency H 01/05/2019 [facility] 07:32:00 PM EDT Medical C enter [address] 12/30/2018 eCW1 ([facility] 12:00:00 AM EDT [facility]) Emergency H 12/29/2018 [facility] 11:20:00 AM EDT Medical C enter Inpatient Attender: ASMA ED H-STEP 12/17/2018 [facility] STAFF 03:23:00 PM EDT - Medical Center PHYSICIANAdmitter: 12/20/2018 [facility] ED STAFF 02:03:00 PM EDT PHYSICIANReferrer: [facility] ED STAFF PHYSICIAN [address] 12/14/2018 eCW1 (S aint Office [facility] Outpatient Attender: Donald Yu 11/26/2018 [facility] MDAdmitter: 09:07:00 AM [facility] Donald Sabillon MDReferrer: Donald Sabillon MD [facility] 11/26/2018 NEXTGEN ( int Center 09:07:00 AM [facility] 11/26/2018 Center) 09:07:00 AM EST [address] 11/12/2018 eCW1 (S aint Office [facility] Street [facility] 12:00:00 AM [facility]) [address] [address] [address] 11/12/2018 eCW1 (S nt [facility] Street [facility] 12:00:00 AM [facility]) [address] [address] [address] 11/05/2018 eCW1 (S nt [facility] Street [facility] 12:00:00 AM [facility]) [place] [address] [address] 10/26/2018 eCW1 ([facility] 12:00:00 AM [facility]) Immunizations Vaccine Date Status Description Data Source(s) No Known Immunizations completed eCW1 ([facility]) No Known Immunizations completed eCW1 ([facility]) No Known Immunizations completed eCW1 ([facility]) No Known Immunizations completed eCW1 ([facility]) Medications Medication Brand Start Product Dose Route Administrative Pharmacy [facility] Indications Reaction Description Data Name Date Form Instructions Instructions Source(s) Aspirin 81 Aspiri 04/25/ Tablet Orally 81 MG Orally complet 1 tablet eCW1 MG Delayed n 2019 Delayed Once a day ed ([facility] Adult 12:00: Release Victor Hugo s Oral Tablet Low 00 AM Medical Aspirin Dose EDT Practice Adult Low ) Dose 24 HR Isosor 04/25/ Tablet Orally 30 MG Orally complet 1 tablet in eCW1 Isosorbide bide 2019 Extended Once a day ed the morning ([facility] Mononitrate Mononi 12:00: Release J osephs 30 MG trate 00 AM 24 Hour Medical Extended CR EDT Practice Release ) Oral Tablet Isosorbide Mononitrate CR Spironolact Spiron 12/14/ Tablet Orally 25 MG Orally complet 1 tablet eCW1 one 25 MG olacto 2018 daily ed (Saint Oral Tablet ne 12:00: Victor Hugo s 00 AM Medical EDT Practice ) Spironolact Spiron 12/14/ Tablet Orally 25 MG Orally complet 1 tablet eCW1 one 25 MG olacto 2018 daily ed (Saint Oral Tablet ne 12:00: Victor Hugo s 00 AM Medical EDT Practice ) Spironolact Spiron 12/14/ active 1 table t eCW1 one 25 MG olacto 2018 (Saint Oral Tablet ne 25 12:00: [facility] MG 00 AM Medical EDT Practice ) Digoxin Digoxi Tablet Orally 125 MCG Orally complet 1 tablet eCW1 0.125 MG n Once a day ed (Krystina t Oral Tablet [facility]) HydrALAZINE Tablet Orally 50 MG Orally complet 2 tablets eCW1 HCl Three times a ed ([facility]) atorvastati Atorva Tablet Orally 40 MG Orally complet 1 tablet eCW1 n 40 MG statin Once a day ed (Asa nt Oral Tablet Calciu Victor Hugo s Atorvastati [facility] Calcium [facility]erg[facility]) 24 HR NIFEdi Tablet Orally 30 MG Orally complet 1 tablet on eCW1 Nifedipine pine Extended Once a day ed an e mpty (Saint 30 MG ER Release stomach [place] Extended 24 Hour Medical Release Practice Oral Tablet ) NIFEdipine ER 120 ACTUAT Symbic Aerosol Inhala 160-4.5 MCG/ACT complet 2 puffs eCW1 Budesonide ort tion Inhalation ed (Sa int 0.16 Twice a day Destiny MG/ACTUAT / Medical formoterol Practice fumarate ) 0.0045 MG/ACTUAT Metered Dose Inhaler [Symbicort] Albuterol Aerosol Inhala 108 (90 Base) complet 2 puffs as eCW1 Sulfate Powder tion MCG/ACT ed needed (Krystina t Breath Inhalation [place] Activate every 6 hrs [facility]) Hydralazine HydrAL Tablet Orally 100 MG Orally complet 1 tablet eCW1 Hydrochlori AZINE Three times a ed ( de 100 MG HCl day [place] Oral Tablet Medical HydrALAZINE [facility]) apixaban 5 Eliqui Tablet Orally 5 MG Orally complet 1 tablet eCW1 MG Oral s Twice a day ed (Krystina t Tablet [place] [Eliquis] Medical [facility]) 24 HR NIFEdi Tablet Orally 30 MG Orally complet 1 tablet on eCW1 Nifedipine pine Extended Once a day ed an e mpty (Saint 30 MG ER Release stomach Destiny Extended 24 Hour Medical Release Practice Oral Tablet ) NIFEdipine ER Albuterol Aerosol Inhala 108 (90 Base) complet 2 puffs as eCW1 Sulfate Powder tion MCG/ACT ed needed (Krystina t Breath Inhalation Destiny Activate every 6 hrs [facility]) 24 HR Metopr Capsule Orally 100 MG Orally complet 1 capsule eCW1 metoprolol olol ER 24 Twice a day ed ( Saint succinate Succin Hour Destiny 100 MG ate [facility]) Oral Tablet Metoprolol Succinate apixaban 5 Eliqui Tablet Orally 5 MG Orally complet 1 tablet eCW1 MG Oral s Twice a day ed (Krystina t Tablet [place]iny [Eliquis] Medical [facility]) 120 ACTUAT Symbic Aerosol Inhala 160-4.5 MCG/ACT complet 2 puffs eCW1 Budesonide ort tion Inhalation ed (Sa int 0.16 Twice a day Destiny MG/ACTUAT / Medical formoterol [facility]) 0.0045 MG/ACTUAT Metered Dose Inhaler [Symbicort] 24 HR Metopr Capsule Orally 100 MG Orally complet 1 capsule eCW1 metoprolol olol ER 24 Twice a day ed ( Saint succinate Succin Hour Destiny 100 MG ate [facility]) Oral Tablet Metoprolol Succinate Digoxin Digoxi Tablet Orally 125 MCG Orally complet 1 tablet eCW1 0.125 MG n Once a day ed (Krystina t Oral Tablet [facility]) atorvastati Atorva Tablet Orally 40 MG Orally complet 1 tablet eCW1 n 40 MG statin Once a day ed (Asa nt Oral Tablet Calciu Victor Hugo s Atorvastati [facility] Calcium [facility]) 24 HR metopr 1 complet Saint metoprolol olol ed Destiny succinate succin Medical 50 MG ate 50 Center Extended mg Release Tablet Oral Tablet Extend metoprolol ed succinate Releas 50 mg e 24 Tablet hrDire Extended ctions Release 24 : 1 hrDirection tablet s: 1 tablet oral oral daily daily Potassium potass 1 complet Saint Chloride 10 ium ed Destiny MEQ chlori Medical Extended de 10 Center Release mEq Oral Tablet Tablet potassium Extend chloride 10 ed mEq Tablet Releas Extended eDirec ReleaseDire tions: ctions: 1 1 tablet oral tablet daily oral daily Spironolact spiron 1 complet Asa nt one 25 MG olacto ed [place] Oral Tablet ne 25 Medical spironolact mg Center one 25 mg Tablet TabletDirec Direct tions: 1 ions: tablet oral 1 daily tablet oral daily Hydralazine HydrAL active 2 tablets eCW1 Hydrochlori AZINE (Saint de 50 MG HCl 50 [place]iny Oral Tablet MG Medical HydrALAZINE Practice HCl 50 MG ) Unknown complet eCW1 Medications ed ([facility]) Digoxin Digoxi active 1 tablet eCW1 0.125 MG n 125 (Saint Oral Tablet [facility] Destiny Digoxin 125 Medical [facility] Practice ) Hydralazine HydrAL 2.0 active HydrALAZI NE eCW1 Hydrochlori AZINE {tabl HCl 50 MG ( [facility] de 50 MG HCl 50 ets} Destiny Oral Tablet MG Medical HydrALAZINE Practice HCl 50 MG PC) apixaban 5 apixab 1 complet Eliquis S aint MG Oral an ed Destiny Tablet (Eliqu Medical [Eliquis] is) 5 Center apixaban mg (Eliquis) 5 Tablet mg Direct TabletDirec ions: tions: 1 1 tablet oral tablet twice a day oral twice a day Aspirin 81 aspiri 1 complet Krystina t MG Delayed n 81 ed Destiny Release mg Medical Oral Tablet tablet Center aspirin 81 ,delay mg ed tablet,beth releas yed release e (DR/EC)Dire (DR/EC ctions: 1 )Direc tablet oral tions: daily 1 tablet oral daily digoxin 125 1 complet [facility] ed Destiny TabletDirec Medical tions: 1 Center tablet oral daily Hydralazine hydrAL 1 complet Asa nt Hydrochlori AZINE ed [place] de 100 MG 100 mg Medical Oral Tablet Tablet Center hydrALAZINE Direct 100 mg ions: TabletDirec 1 tions: 1 tablet tablet oral oral every eight every hours eight hours 24 HR isosor complet [facility] Isosorbide bide ed [place] Mononitrate mononi Medica l 30 MG trate Center Extended 30 mg Release Tablet Oral Tablet Extend isosorbide ed mononitrate Releas 30 mg e 24 Tablet hr Extended Release 24 hr 24 HR isosor 1 complet [facility] Isosorbide bide ed [facility] Mononitrate mononi Medica l 30 MG trate Center Extended 30 mg Release Tablet Oral Tablet Extend isosorbide ed mononitrate Releas 30 mg e 24 Tablet hrDire Extended ctions Release 24 : 1 hrDirection tablet s: 1 tablet oral oral daily daily Unknown complet eCW1 Medications ed ([facility]) 24 HR Isosor 1.0 active Isosorbide eCW1 Isosorbide bide {tabl Mononitrate ( [facility] Mononitrate Mononi et_in ER 30 MG J osephs 30 MG trate _the_ Medical Extended ER 30 morni Practice Release MG ng} ) Oral Tablet Isosorbide Mononitrate ER 30 MG Albuterol UNK active 2 puffs as eC W1 Sulfate 108 needed ([facility] (90 Base) [facility] Medical M[facility] with [facility]) atorvastati Atorva 1.0 active Atorvasta tin eCW1 n 40 MG statin {tabl Calcium 40 (Sa int Oral Tablet Calciu et} MG [facility] Atorvastati m 40 Medical n Calcium MG Practice 40 MG ) Spironolact Spiron 1.0 active 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) 24 HR NIFEdi 1.0 active NIFEdipine eCW1 Nifedipine pine {tabl ER 30 MG (Asa nt 30 MG ER 30 et_on [facility] Extended MG _an_e Medical Release mpty_ Practice Oral Tablet stoma ) NIFEdipine ch} ER 30 MG Digoxin Digoxi active 1 tablet eCW1 0.125 MG n 125 ([facility] Oral Tablet MCG [facility] Digoxin 125 Medical [facility]) 120 ACTUAT Symbic 2.0 active Symbicort eCW1 Budesonide ort {puff 160-4.5 (Krystina t 0.16 160-4. s} MCG/ACT Destiny MG/ACTUAT / 5 Medical formoterol MCG/AC Practic e fumarate T PC) 0.0045 MG/ACTUAT Metered Dose Inhaler [Symbicort] Symbicort 160-4.5 MCG/ACT atorvastati Atorva active 1 tablet eCW1 n 40 MG statin (Saint Oral Tablet Calciu [facility] Atorvastati m 40 Medical n Calcium MG Practice 40 MG PC) Aspirin 81 Aspiri 1.0 active Aspirin eC W1 MG Delayed n {tabl Adult Low (Sa int Release Adult et} Dose 81 MG Adi hs Oral Tablet Low Medical Aspirin Dose Practice Adult Low 81 MG PC) Dose 81 MG Metoprolol UNK active 1 capsule eC W1 Succinate ([facility] [address] [facility]) Cefuroxime cefURO 1 complet Krystina t 500 MG Oral Nazia ed Destiny Tablet axetil Medical cefUROXime 500 mg [place] axetil 500 Tablet mg Tablet, , Ordered By: Carmel pantoja By: Madan Leon MDDirection Evan s: 1 tablet ch, oral twice MDDire a day ctions : 1 tablet oral twice a day 120 ACTUAT Symbic active 2 puffs eC W1 Budesonide ort ([facility] 0.16 160-4. [place] MG/ACTUAT / 5 Medical formoterol MCG/AC Practic e fumarate T PC) 0.0045 MG/ACTUAT Metered Dose Inhaler [Symbicort] Symbicort 160-4.5 MCG/ACT Metoprolol UNK active 1 capsule eC W1 Succinate (Saint [address] [facility]) Spironolact Spiron active 1 tablet eCW1 one 25 MG olacto ([facility] Oral Tablet ne 25 [facility] MG Medical Practice PC) carbamide carbam 10 complet Ear Drops Saint peroxide 65 nazia ed (carbamide Radha sephs MG/ML Otic peroxi peroxide) Me dical Solution de Center carbamide (Ear peroxide Drops (Ear Drops (carba (carbamide mide peroxide)) peroxi 6.5 % de)) Drops, 6.5 % Ordered By: Xavi Alexander d By: CRISTOFERirection Xavi s: 10 drop Tiffany otic, both ms, ears twice MDDire a day ctions : 10 drop otic, both ears twice a day atorvastati Atorva active 1 tablet eCW1 n 40 MG statin (Saint Oral Tablet Calciu [facility] Atorvastati m 40 Medical n Calcium MG Practice 40 MG PC) 120 ACTUAT Symbic active 2 puffs eC W1 Budesonide ort (Saint 0.16 160-4. [place] MG/ACTUAT / 5 Medical formoterol MCG/AC Practic e fumarate T PC) 0.0045 MG/ACTUAT Metered Dose Inhaler [Symbicort] Symbicort 160-4.5 MCG/ACT apixaban 5 apixab 1 complet Eliquis S aint MG Oral an ed [facility]iny Tablet (Eliqu Medical [Eliquis] is) 5 Center apixaban mg (Eliquis) 5 Tablet mg Tablet, , Ordered By: Carmel pantoja By: Denzel Edwards MDDirection hi s: 1 tablet Ekechu oral twice kwu, a day MDDire ctions : 1 tablet oral twice a day atorvastati atorva 1 complet Asa nt n 40 MG statin ed Destiny Oral Tablet 40 mg Medical atorvastati Tablet Center n 40 mg , Tablet, Ordere Ordered By: d By: kerrie [facility] Grace ut MDDirection Ekechu s: 1 tablet kwu, oral daily MDDire at bedtime ctions : 1 tablet oral daily at bedtim e Folic Acid foLIC 1 complet [facility] 1 MG Oral Acid 1 ed [place]iny Tablet mg Medical foLIC Acid Tablet Center 1 mg , Tablet, Ordere Ordered By: d By: Nayeli joanie Grace ut MDDirection Ekechu s: 1 tablet kwu, oral daily MDDire ctions : 1 tablet oral daily Hydralazine hydrAL 1 complet Asa nt Hydrochlori AZINE ed Destiny de 50 MG 50 mg Medical Oral Tablet Tablet Center hydrALAZINE , 50 mg Ordere Tablet, d By: Ordered By: joanie Nayeli ut Grace Ekechu MDDirection kwu, s: 1 tablet MDDire oral every ctions eight hours : 1 tablet oral every eight hours atorvastati atorva 1 complet Asa nt n 40 MG statin ed [place] Oral Tablet 40 mg Medical atorvastati Tablet Center n 40 mg , Tablet, Ordere Ordered By: d By: Moe Pham , sante, MDDirection MDDire s: 1 tablet ctions oral daily : 1 at bedtime tablet oral daily at bedtim e 24 HR isosor 1 complet [facility] Isosorbide bide ed [place] Mononitrate mononi Medica l 30 MG trate Center Extended 30 mg Release Tablet Oral Tablet Extend isosorbide ed mononitrate Releas 30 mg e 24 Tablet hr, Extended Ordere Release 24 d By: hr, Ordered Moe By: Moe Carrera-Cosme Carrera-Eamon michaels, , MDDire MDDirection ctions s: 1 tablet : 1 oral daily tablet oral daily 24 HR metopr 1 complet [facility] metoprolol olol ed [place] succinate succin Medical 100 MG ate Center Extended 100 mg Release Tablet Oral Tablet Extend metoprolol ed succinate Releas 100 mg e 24 Tablet hr, Extended Ordere Release 24 d By: hr, Ordered Ebere By: miquel Mccarty, MDDirection MDDire s: 1 tablet ctions oral twice : 1 a day tablet oral twice a day Spironolact spiron 1 complet Asa nt one 25 MG olacto ed [place]iny Oral Tablet ne 25 Medical spironolact mg Center one 25 mg Tablet Tablet, , Ordered By: Ordere Moe d By: Deandre Valencia-Cosme MDDirection sante, s: 1 tablet MDDire oral daily ctions : 1 tablet oral daily 24 HR metopr 1 complet [facility] metoprolol olol ed [place] succinate succin Medical 100 MG ate Center Extended 100 mg Release Tablet Oral Tablet Extend metoprolol ed succinate Releas 100 mg e 24 Tablet hr, Extended Ordere Release 24 d By: hr, Ordered Moe By: Moe Carrera-Cosme Ambroseo-Eamon santdebra, , MDDire MDDirection ctions s: 1 tablet : 1 oral twice tablet a day oral twice a day Prednisone predni 1 complet Krystina t 10 MG Oral SONE ed [place]iny Tablet 10 mg Medical predniSONE Tablet Center 10 mg , Tablet, Ordere Ordered By: d By: alex Diaz MDDirection Ekechu s: 1 tablet kwu, oral daily MDDire ctions : 1 tablet oral daily Digoxin digoxi 1 complet [facility] 0.125 MG n 125 ed [place] Oral Tablet mcg Medical digoxin 125 Tablet Center mcg Tablet, , Ordered By: Carmel Rosa d By: Ankit Valencia MDDirection sante, s: 1 tablet MDDire oral daily ctions : 1 tablet oral daily Spironolact spiron 1 complet Asa nt one 25 MG olacto ed [place] Oral Tablet ne 25 Medical spironolact mg Center one 25 mg Tablet Tablet, , Ordered By: Carmel Tyler d By: Denzel Edwards MDDirection hi s: 1 tablet Ekechu oral daily kwu, MDDire ctions : 1 tablet oral daily Hydralazine hydrAL 2 complet Asa nt Hydrochlori AZINE ed [place]iny de 50 MG 50 mg Medical Oral Tablet Tablet Center hydrALAZINE , 50 mg Ordere Tablet, d By: Ordered By: Moe Ambroseo-Cosme Ambroseo-Eamon sante, , MDDire MDDirection ctions s: 2 tablet : 2 oral every tablet eight hours oral every eight hours Albuterol UNK 2.0 active Albuterol eCW 1 Sulfate 108 {puff Sulfate 108 ([facility] (90 Base) s_as_ (90 Base) [facility] MCG/ACT neede MCG/ACT Medical d} Practice PC) apixaban 5 apixab 1 complet Eliquis S aint MG Oral an ed [place]iny Tablet (Eliqu Medical [Eliquis] is) 5 Center apixaban mg (Eliquis) 5 Tablet mg Tablet, , Ordered By: Carmel Rosa d By: Ankit Valencia MDDirection sante, s: 1 tablet MDDire oral twice ctions a day : 1 tablet oral twice a day Prednisone predni 2 complet Krystina t 20 MG Oral SONE ed [place]iny Tablet 20 mg Medical predniSONE Tablet Center 20 mg , Tablet, Ordere Ordered By: d By: Jarrett Elmore PADirection PADire s: 2 tablet ctions oral daily : 2 tablet oral daily benzonatate benzon 1 complet Asa nt 100 MG Oral atate ed [place]iny Capsule 100 mg Medical benzonatate Capsul Center 100 mg e, Capsule, Ordere Ordered By: d By: Jarrett Elmore PADirection PADire s: 1 ctions capsule : 1 oral three capsul times a day e oral PRN cough three times a day PRN cough Folic Acid Folic active 1 tablet eC W1 1 MG Oral Acid 1 ([facility] Tablet MG [facility]) 24 HR NIFEdi active 1 tablet on eCW 1 Nifedipine pine an empty (Krystina t 30 MG ER 30 stomach [place]iny Extended MG Medical Release Practice Oral Tablet PC) NIFEdipine ER 30 MG Acetaminoph acetam 1 complet Asa nt en 500 MG inophe ed Destiny Oral Tablet n 500 Medical acetaminoph mg Center en 500 mg Tablet Tablet, , Ordered By: Carmel pantoja By: Dalila Fariasirection Green, s: 1 tablet PADire oral every ctions six hours : 1 PRN pain tablet oral every six hours PRN pain Aspirin 81 Aspiri active 1 tablet e CW1 MG Delayed n ([facility] Release Adult [facility]iny Oral Tablet Low Medical Aspirin Dose Practice Adult Low 81 MG PC) Dose 81 MG apixaban 5 Eliqui 1.0 active Eliquis 5 MG eCW1 MG Oral s 5 MG {tabl (Saint Tablet et} [facility]iny [Eliquis] Medical Eliquis 5 Practice MG PC) 24 HR Isosor active 1 tablet in eCW 1 Isosorbide bide the morning (S aint Mononitrate Mononi Victor Hugo s 30 MG trate Medical Extended ER 30 Practice Release MG PC) Oral Tablet Isosorbide Mononitrate ER 30 MG Potassium Potass 1.0 active Potassium e CW1 Chloride 10 ium {tabl Chloride ER (Saint MEQ Chlori et_wi 10 MEQ [place] Extended de ER th_fo Medical Release 10 MEQ od} Practice Oral Tablet PC) Potassium Chloride ER 10 MEQ apixaban 5 Eliqui active 1 tablet e CW1 MG Oral s 5 MG (Saint Tablet [place] [Eliquis] Medical Eliquis 5 Practice MG PC) Albuterol UNK active 2 puffs as eC W1 Sulfate 108 needed ([facility] (90 Base) [facility] MCG/ACT Medical Practice PC) Hydralazine HydrAL active 2 tablets eCW1 Hydrochlori AZINE (Saint de 50 MG HCl 50 [place]iny Oral Tablet MG Medical HydrALAZINE Practice HCl 50 MG PC) apixaban 5 Eliqui active 1 tablet e CW1 MG Oral s 5 MG (Saint Tablet [place] [Eliquis] Medical Eliquis 5 Practice MG PC) 24 HR NIFEdi active 1 tablet on eCW 1 Nifedipine pine an empty (Krystina t 30 MG ER 30 stomach [place]iny Extended MG Medical Release Practice Oral Tablet PC) NIFEdipine ER 30 MG Potassium Potass active 1 tablet eC W1 Chloride 10 ium with food (Sa int MEQ Chlori Destiny Extended de ER Medical Release 10 MEQ Practice Oral Tablet PC) Potassium Chloride ER 10 MEQ 24 HR Isosor active 1 tablet in eCW 1 Isosorbide bide the morning (S aint Mononitrate Mononi Victor Hugo s 30 MG trate Medical Extended CR 30 Practice Release MG PC) Oral Tablet Isosorbide Mononitrate CR 30 MG Folic Acid Folic 1.0 suspend Folic Acid 1 eCW1 1 MG Oral Acid 1 {tabl ed MG (Saint Tablet MG et} [facility]) apixaban 1 complet Eliquis Saint (Eliquis) 5 ed [place]iny mg Medical TabletDirec Center tions: 1 tablet oral twice a day aspirin 81 1 complet [facility] mg ed [place]iny tablet,beth Medical yed release Center (DR/EC)Dire ctions: 1 tablet oral daily acetaminoph 1 complet Saint en 500 mg ed [place] TabletDirec Medical tions: 1 Center tablet oral every six hours PRN pain spironolact 1 complet [facility] one 25 mg ed [place] TabletDirec Medical tions: 1 Center tablet oral daily Potassium Potass active 1 tablet eC W1 Chloride 10 ium with food (Sa int MEQ Chlori Destiny Extended de ER Medical Release 10 MEQ Practice Oral Tablet PC) Potassium Chloride ER 10 MEQ potassium complet Klor-Con M20 Saint chloride ed Destiny (Klor-Con Medical M20) 20 mEq Center tablet,ER particles/c rystals 120 ACTUAT budeso 2 complet Symbicort Saint Budesonide nide-f ed Destiny 0.16 ormote Medical MG/ACTUAT / rol Center formoterol (Symbi fumarate kevin) 0.0045 160 MG/ACTUAT mcg-4. Metered 5 Dose mcg/Ac Inhaler tuatio [Symbicort] n HFA budesonide- Aeroso formoterol l (Symbicort) Inhale 160 mcg-4.5 r, mcg/Actuati Ordere on HFA d By: Aerosol Moe Inhaler, Safo-A Ordered By: Moe michaels MDDire Safo-Eamon ctions , : 2 MDDirection puff s: 2 puff by by inhala inhalation tion twice a day twice a day Albuterol albute 2 complet Saint 0.09 rol ed Destiny MG/ACTUAT sulfat Medical Metered e 90 Center Dose mcg Inhaler HFA albuterol Aeroso sulfate 90 l mcg HFA Inhale Aerosol r, Inhaler, Ordere Ordered By: d By: Moe Lara Safo-A , sante, MDDirection MDDire s: 2 puff ctions by : 2 inhalation puff every six by hours PRN inhala shortness tion of breath every six hours PRN shortn ess of breath Metoprolol UNK 1.0 active Metoprolol e CW1 Succinate {caps Succinate (Asa nt 100 MG ule} 100 MG [facility]) potassium 1 complet [facility] chloride 10 ed [place]iny mEq Tablet Medical Extended Center ReleaseDire ctions: 1 tablet oral daily metoprolol complet [facility] succinate ed Destiny 50 mg Medical Tablet Center Extended Release 24 hr 24 HR Isosor active 1 tablet in eCW 1 Isosorbide bide the morning (S aint Mononitrate Mononi Victor Hugo s 30 MG trate Medical Extended ER 30 Practice Release MG PC) Oral Tablet Isosorbide Mononitrate ER 30 MG potassium complet [facility] chloride 10 ed [place] mEq Tablet Medical Extended Center Release isosorbide 1 complet [facility] mononitrate ed Destiny 30 mg Medical Tablet Center Extended Release 24 hrDirection s: 1 tablet oral daily 24 HR Isosor 1.0 active Isosorbide eCW1 Isosorbide bide {tabl Mononitrate ( [facility] Mononitrate Mononi et_in ER 30 MG J osephs 30 MG trate _the_ Medical Extended ER 30 morni Practice Release MG ng} PC) Oral Tablet Isosorbide Mononitrate ER 30 MG digoxin 125 1 complet [facility] mcg ed [place]iny TabletDirec Medical tions: 1 Center tablet oral daily aspirin 81 complet [facility] mg ed [place]iny tablet,beth Medical yed release Center (DR/EC) isosorbide complet [facility] mononitrate ed Destiny 30 mg Medical Tablet Center Extended Release 24 hr potassium 1 complet Klor-Con M20 Saint chloride ed Destiny (Klor-Con Medical M20) 20 mEq Center tablet,ER particles/c rystalsDire ctions: 1 tablet oral daily metoprolol 1 complet [facility] succinate ed Destiny 50 mg Medical Tablet Center Extended Release 24 hrDirection s: 1 tablet oral daily 24 HR isosor 1 complet [facility] Isosorbide bide ed [place] Mononitrate mononi Medica l 30 MG trate Center Extended 30 mg Release Tablet Oral Tablet Extend isosorbide ed mononitrate Releas 30 mg e 24 Tablet hr, Extended Ordere Release 24 d By: hr, Ordered Ebere By: hi Eberechi Eklexu Ekyin, kwu, MDDirection MDDire s: 1 tablet ctions oral daily : 1 tablet oral daily hydrALAZINE 1 complet Saint 100 mg ed [place]iny TabletDirec Medical tions: 1 Center tablet oral every eight hours Insurance Providers Payer name Policy type Policy ID Covered Covered green party's Policy P angel / Coverage green party ID relationship to [employer] ormation type rodriguez MEDICARE [id number] SP [id number] [facility] [id number] SP [id number] PLANS HIP MEDICARE [id number] SP [id number] VIP M [id number] 01 [id number] J66 MEDICARE [id number] SP [id number] J66 VALUE [id number] SP [id number] OPTIONS-MEDICAR E M [id number] 01 [id number] J66 M [id number] 01 [id number] M [id number] 01 [id number] 401 HIP O [id number] 01 [id number] 401 M [id number] 01 [id number] O [id number] 01 [id number] 401 HIP O [id number] 01 [id number] 401 HIP MCARE O [id number] 01 [id number] 401 [facility] O [id number] 01 [id number] MCARE HIP O [id number] 01 [id number] 401 [id number] 01 [id number] [facility] O [id number] 01 [id number] [facility] [id number] 01 [id number] MEDICARE AFFINITY [id number] 01 [id number] A [facility] O [id number] 01 [id number] [facility] Problems, Conditions, and Diagnoses Code Display Name Description Problem Type Effective Data Dates Source(s) F10.10 [id number] Alcohol abuse Problem 11/25/2019 eCW1 ([facility] 12:00:00 AM [facility] EST Medical Practice ) F10.10 [id number] Alcohol abuse Problem 11/25/2019 eCW1 ([facility] 12:00:00 AM [facility] EST Medical Practice ) J45.20 [id number] Mild intermittent Problem 01/21/2019 eCW1 (S aint asthma without 12:00:00 AM [place] complication EDT Medical Practice ) D72.829 [id number] Leukocytosis, Problem 01/21/2019 eCW1 ([facility] unspecified type 12:00:00 AM [facility] EDT Medical Practice ) J45.20 [id number] Mild intermittent Problem 01/21/2019 eCW1 (S aint asthma without 12:00:00 AM [place] complication EDT Medical Practice ) D72.829 [id number] Leukocytosis, Problem 01/21/2019 eCW1 ([facility] unspecified type 12:00:00 AM [facility] EDT Medical Practice ) D72.829 Leukocytosis, Leukocytosis, Problem 01/21/2019 eCW1 (Sa int unspecified type unspecified type 12:00:00 AM J osephs EDT Medical Practice ) J45.20 Mild intermittent Mild intermittent Problem 01/21/2019 eCW1 ([facility] asthma without asthma without 12:00:00 AM Adi hs complication complication EDT Medical Practice ) I25.10 [id number] Coronary artery Problem 01/14/2019 eCW1 (Asa nt disease without 12:00:00 AM [place] angina pectoris, EDT Medical unspecified vessel Practi [facility]) or lesion type, unspecified whether [place] or transplanted heart F10.10 [id number] ETOH abuse Problem 01/14/2019 eCW1 ([facility] 12:00:00 AM [place] EDT Medical Practice ) J44.9 [id number] Chronic Problem 01/14/2019 eCW1 ([facility] obstructive 12:00:00 AM [place] pulmonary disease, EDT Medica l unspecified COPD Practice ) type I25.10 [id number] Coronary artery Problem 01/14/2019 eCW1 ( [facility] disease involving 12:00:00 AM [facility] [place] coronary EDT Medical artery of [place] Practice PC) heart without angina pectoris N40.1 [id number] Benign prostatic Problem 01/14/2019 eCW1 (Sa int hyperplasia with 12:00:00 AM [place] lower urinary EDT Medical tract symptoms Practice P C) N39.41 [id number] Urge incontinence Problem 01/14/2019 eCW1 (S aint 12:00:00 AM [place] EDT Medical Practice PC) J44.9 [id number] Chronic Problem 01/14/2019 eCW1 ([facility] obstructive 12:00:00 AM [place] pulmonary disease, EDT Medica l unspecified COPD Practice PC) type I25.10 [id number] Coronary artery Problem 01/14/2019 eCW1 ( [facility] disease involving 12:00:00 AM [facility] s [place] coronary EDT Medical artery of [place] Practice PC) heart without angina pectoris N40.1 [id number] Benign prostatic Problem 01/14/2019 eCW1 (Sa int hyperplasia with 12:00:00 AM [place] lower urinary EDT Medical tract symptoms Practice P C) N39.41 [id number] Urge incontinence Problem 01/14/2019 eCW1 (S aint 12:00:00 AM [place] EDT Medical Practice PC) I25.10 Coronary artery Coronary artery Problem 01/14/2019 eCW1 ([facility] disease without disease without 12:00:00 AM Mario ephs angina pectoris, angina pectoris, EDT Me dical unspecified vessel unspecified vessel Practice PC) or lesion type, or lesion type, unspecified whether unspecified [place] or whether [place] or transplanted heart transplanted heart F10.10 ETOH abuse ETOH abuse Problem 01/14/2019 eCW1 ([facility] 12:00:00 AM [place] EDT Medical Practice PC) J44.9 Chronic obstructive Chronic Problem 01/14/2019 eCW1 ([facility] pulmonary disease, obstructive 12:00:00 AM Roni phs unspecified COPD pulmonary disease, EDT Medical type unspecified COPD Practice PC) type N40.1 Benign prostatic Benign prostatic Problem 01/14/2019 eC W1 ([facility] hyperplasia with hyperplasia with 12:00:00 AM J osephs lower urinary tract lower urinary EDT Me dical symptoms tract symptoms Practice P C) I25.10 Coronary artery Coronary artery Problem 01/14/2019 eCW1 ([facility] disease involving disease involving 12:00:00 AM [place] coronary [place] coronary EDT Medi [place] artery of [place] artery of [place] Pr actice PC) heart without heart without angina pectoris angina pectoris N39.41 Urge incontinence Urge incontinence Problem 01/14/2019 eCW1 ([facility] 12:00:00 AM [place] EDT Medical Practice PC) I42.9 [id number] Cardiomyopathy, Problem 12/30/2018 eCW1 (Asa nt unspecified type 12:00:00 AM [facility] EDT Medical Practice PC) E78.5 [id number] Hyperlipidemia, Problem 12/30/2018 eCW1 (Asa nt unspecified 12:00:00 AM [facility] hyperlipidemia EDT Medical type Practice PC) I42.9 [id number] Cardiomyopathy, Problem 12/30/2018 eCW1 (Asa nt unspecified type 12:00:00 AM [facility] EDT Medical Practice PC) E78.5 [id number] Hyperlipidemia, Problem 12/30/2018 eCW1 (Asa nt unspecified 12:00:00 AM [facility] hyperlipidemia EDT Medical type Practice PC) E78.5 Hyperlipidemia, Hyperlipidemia, Problem 12/30/2018 eCW1 ([facility] unspecified unspecified 12:00:00 AM [facility] hyperlipidemia type hyperlipidemia EDT edical type Practice PC) I42.9 Cardiomyopathy, Cardiomyopathy, Problem 12/30/2018 eCW1 ([facility] unspecified type unspecified type 12:00:00 AM J osephs EDT Medical Practice PC) I48.0 Atrial fibrillation PAF (paroxysmal Problem 11/12/2018 eCW1 ([facility] atrial 12:00:00 AM [place] fibrillation) EST Medical Practice ) I10 [id number] Essential Problem 11/12/2018 eCW1 ([facility] hypertension 12:00:00 AM [facility] Medical Practice PC) E78.2 [id number] Mixed Problem 11/12/2018 eCW1 ([facility] hyperlipidemia 12:00:00 AM [facility] Medical Practice ) G45.9 [id number] TIA (transient Problem 11/12/2018 eCW1 (Krystina t ischemic attack) 12:00:00 AM [facility] EST Medical Practice ) I42.0 [id number] Dilated Problem 11/12/2018 eCW1 ([facility] cardiomyopathy 12:00:00 AM [facility] Medical Practice PC) I48.0 Atrial fibrillation PAF (paroxysmal Problem 11/12/2018 eCW1 ([facility] atrial 12:00:00 AM [place] fibrillation) [facility] Medical Practice ) I10 [id number] Essential Problem 11/12/2018 eCW1 ([facility] hypertension 12:00:00 AM [facility] Medical Practice PC) E78.2 [id number] Mixed Problem 11/12/2018 eCW1 ([facility] hyperlipidemia 12:00:00 AM [facility] Medical Practice PC) G45.9 [id number] TIA (transient Problem 11/12/2018 eCW1 (Krystina t ischemic attack) 12:00:00 AM [facility] Medical Practice PC) I42.0 [id number] Dilated Problem 11/12/2018 eCW1 ([facility] cardiomyopathy 12:00:00 AM [facility] Medical Practice PC) I48.0 PAF (paroxysmal PAF (paroxysmal Problem 11/12/2018 eCW1 ([facility] atrial atrial 12:00:00 AM [place] fibrillation) fibrillation) [facility] Medical Practice PC) G45.9 TIA (transient TIA (transient Problem 11/12/2018 eCW1 ( [facility] ischemic attack) ischemic attack) 12:00:00 AM J osephs [facility] Medical Practice PC) I10 Essential Essential Problem 11/12/2018 eCW1 ([facility] hypertension hypertension 12:00:00 AM [facility] Medical Practice PC) I42.0 Dilated Dilated Problem 11/12/2018 eCW1 ([facility] cardiomyopathy cardiomyopathy 12:00:00 AM Adi [facility] Medical Practice PC) E78.2 Mixed Mixed Problem 11/12/2018 eCW1 ([facility] hyperlipidemia hyperlipidemia 12:00:00 AM [facility] Medical Practice PC) I48.2 [id number] Chronic atrial Problem 11/05/2018 eCW1 (Krystina t fibrillation 12:00:00 AM [facility] ) I48.2 [id number] Chronic atrial Problem 11/05/2018 eCW1 (Krystina t fibrillation 12:00:00 AM [facility]) I48.2 Chronic atrial Chronic atrial Problem 11/05/2018 eCW1 ( [facility] fibrillation fibrillation 12:00:00 AM [facility] ) K75.9 [id number] Hepatitis Problem 10/26/2018 eCW1 ([facility] 12:00:00 AM [facility]) K75.9 [id number] Hepatitis Problem 10/26/2018 eCW1 ([facility] 12:00:00 AM [facility]) K75.9 Hepatitis Hepatitis Problem 10/26/2018 eCW1 ([facility] 12:00:00 AM [facility]) 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 eCW1 ( [facility] disease, [facility] unspecified Medical Practice PC) I42.0 Dilated Dilated Problem eCW1 ([facility] cardiomyopathy cardiomyopathy [facility]) E78.2 Mixed Mixed Problem eCW1 ([facility] hyperlipidemia hyperlipidemia [facility]) G45.9 Transient cerebral TIA (transient Diagnosis eC W1 ([facility] ischemic attack, ischemic attack) Radha seph[facility] unspecified Medical Practice PC) I50.9 Heart failure, Congestive heart Diagnosis eCW1 ([facility] unspecified failure, [facility] unspecified HF Medical chronicity, Practice PC) unspecified heart failure type I10 Essential (primary) Essential Diagnosis eCW1 ([facility] hypertension hypertension [facility] ) N39.41 Urge incontinence Urge incontinence Problem eCW1 ([facility]) N40.1 Benign prostatic Benign prostatic Problem eC W1 ([facility] hyperplasia with hyperplasia with Radha sephs lower urinary tract lower urinary Me dical symptoms tract symptoms Practice P C) I42.9 Cardiomyopathy, Cardiomyopathy, Problem eCW1 ([facility] unspecified unspecified type [facility] PC) E78.5 Hyperlipidemia, Hyperlipidemia, Problem eCW1 ([facility] unspecified unspecified [facility] hyperlipidemia Medical type Practice PC) J18.9 Pneumonia, Pneumonia due to Diagnosis eCW1 ( int unspecified infectious [facility] organism organism, Medical unspecified Practice PC) laterality, unspecified part of lung J44.1 Chronic obstructive COPD exacerbation Diagnosis eCW1 ([facility] pulmonary disease [facility] with (acute) Medical exacerbation Practice PC) J44.9 Chronic obstructive Chronic Problem eCW1 ([facility] pulmonary disease, obstructive Adi hs unspecified pulmonary disease, Medic al unspecified COPD Practice PC) type F10.10 Alcohol abuse, ETOH abuse Problem eCW1 (Krystina t uncomplicated [facility] ) I48.0 Paroxysmal atrial PAF (paroxysmal Problem eC W1 ([facility] fibrillation atrial [facility] fibrillation) Medical Practice PC) I25.10 Atherosclerotic Coronary artery Problem eCW1 ([facility] heart disease of disease involving J osephs [place] coronary [place] coronary Medi amaya artery without artery of [place] [facility] PC) angina pectoris heart without angina pectoris I48.2 Chronic atrial Chronic atrial Problem eCW1 ( [facility] fibrillation fibrillation [facility]) 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 eCW1 ( [facility] disease, [facility] unspecified Medical Practice ) I42.0 Dilated Dilated Problem eCW1 ([facility] cardiomyopathy cardiomyopathy [facility]) G45.9 Transient cerebral TIA (transient Problem eC W1 ([facility] ischemic attack, ischemic attack) Radha sephs unspecified Medical Practice PC) E78.2 Mixed Mixed Problem eCW1 ([facility] hyperlipidemia hyperlipidemia [facility]) I10 Essential (primary) Essential Diagnosis eCW1 ([facility] hypertension hypertension [facility]) N40.1 Benign prostatic Benign prostatic Problem eC W1 ([facility] hyperplasia with hyperplasia with Radha sephs lower urinary tract lower urinary Me dical symptoms tract symptoms Practice P C) I42.9 Cardiomyopathy, Cardiomyopathy, Problem eCW1 ([facility] unspecified unspecified type [facility] Medical [facility]) E78.5 Hyperlipidemia, Hyperlipidemia, Problem eCW1 ([facility] unspecified unspecified [facility] hyperlipidemia Medical type Practice PC) N39.41 Urge incontinence Urge incontinence Diagnosis eCW1 ([facility]) J44.9 Chronic obstructive Chronic Problem eCW1 ([facility] pulmonary disease, obstructive Adi hs unspecified pulmonary disease, Medic al unspecified COPD Practice PC) type F10.10 Alcohol abuse, ETOH abuse Problem eCW1 (Krystina t uncomplicated [facility]) I48.0 Paroxysmal atrial PAF (paroxysmal Problem eC W1 ([facility] fibrillation atrial [facility] fibrillation) Medical Practice ) I25.10 Atherosclerotic Coronary artery Problem eCW1 ([facility] heart disease of disease involving J osephs [place] coronary [place] coronary Medi amaya artery without artery of [place] Prac brielle ) angina pectoris heart without angina pectoris I48.2 Chronic atrial Chronic atrial Problem eCW1 ( [facility] fibrillation fibrillation [facility]) F17.200 Nicotine NICOTINE Diagnosis 05/25/2020 [facility] dependence, DEPENDENCE, 12:00:00 PM Medical unspecified, UNSPECIFIED, EDT Center uncomplicated UNCOMPLICATED F10.10 Alcohol abuse, ALCOHOL ABUSE, Diagnosis 05/25/2020 [place] uncomplicated UNCOMPLICATED 12:00:00 PM Medical EDT Center Z53.20 Procedure and PROC/TRTMT NOT CRD Diagnosis 05/01/2020 Asa nt [facility] treatment not OUT BEC PT 09:21:00 PM Medical carried out because DECISION FOR UNSP EDT Center of patient's REASONS decision for unspecified reasons F10.20 Alcohol dependence, ALCOHOL Diagnosis 05/01/2020 [facility] uncomplicated DEPENDENCE, 09:21:00 PM Medical UNCOMPLICATED EDT Center F17.210 Nicotine NICOTINE Diagnosis 05/01/2020 [facility] dependence, DEPENDENCE, 03:28:00 AM Medical cigarettes, CIGARETTES, EDT Center uncomplicated UNCOMPLICATED I10 Essential (primary) ESSENTIAL Diagnosis 05/01/2020 [facility] hypertension (PRIMARY) 03:28:00 AM Medical HYPERTENSION EDT Center R53.1 Weakness WEAKNESS Diagnosis 05/01/2020 [facility] 03:28:00 AM Medical EDT Center G89.29 Other chronic pain OTHER CHRONIC PAIN Diagnosis 0 [facility] 07:35:00 PM Medical EDT Center M25.519 Pain in unspecified PAIN IN Diagnosis 03/30/2020 [facility] shoulder UNSPECIFIED 07:35:00 PM Medical SHOULDER EDT Center Y99.9 Unspecified UNSPECIFIED Diagnosis 03/29/2020 [facility] external cause EXTERNAL CAUSE 04:28:00 PM Medic al status STATUS EDT Center Y92.[address] IN Diagnosis 03/29/2020 Krystina Dixon in apartment as the APARTMENT PLACE 04:28:[address] of occurrence EDT Cente r of the external cause Y93.9 Activity, ACTIVITY, Diagnosis 03/29/2020 [facility] unspecified UNSPECIFIED 04:28:00 PM Medical EDT Center W01.0XXA Fall on same level FALL SAME LEV FROM Diagnosis 0 [facility] from slipping, SLIP/TRIP W/O 04:28:00 PM Medica l tripping and STRIKE AGAINST EDT Center stumbling without OBJECT, INIT subsequent striking against object, initial encounter S83.91XA Sprain of SPRAIN OF Diagnosis 03/29/2020 [facility] unspecified site of UNSPECIFIED SITE 04:28:00 P M Medical right knee, initial OF RIGHT KNEE, EDT C enter encounter INITIAL ENCOUNTER S83.92XA Sprain of SPRAIN OF Diagnosis 03/29/2020 [facility] unspecified site of UNSPECIFIED SITE 04:28:00 P M Medical left knee, initial OF LEFT KNEE, EDT Melanie ter encounter INITIAL ENCOUNTER F10.129 Alcohol abuse with ALCOHOL ABUSE WITH Diagnosis 0 [facility] intoxication, INTOXICATION, 04:28:00 PM Medical unspecified UNSPECIFIED EDT Center R40.9870 [place] coma scale JEZ COMA SCALE Diagnosis 0 [facility] score 13-15, SCORE 13-15, 04:23:00 PM Medical unspecified time UNSPECIFIED TIME EDT Ce nter Z04.89 ENCOUNTER FOR ENCOUNTER FOR Diagnosis 02/08/2020 [facility] Radha awans EXAMINATION AND EXAMINATION AND 05:07:00 PM Med ical OBSERVATION FOR OTH OBSERVATION FOR EDT Center REASONS OTH REASONS M62.81 Muscle weakness MUSCLE WEAKNESS Diagnosis 02/06/2020 Krystina Dixon (generalized) (GENERALIZED) 06:33:00 PM Medical EDT Center E87.6 Hypokalemia HYPOKALEMIA Diagnosis 01/29/2020 [place] s 01:19:00 PM Medical EDT Center R26.2 Difficulty in DIFFICULTY IN Diagnosis 01/29/2020 [facility] Radha awans walking, not WALKING, NOT 01:19:00 PM Medical elsewhere ELSEWHERE EDT Center classified CLASSIFIED H61.21 Impacted cerumen, IMPACTED CERUMEN, Diagnosis 01/22/2020 [facility] right ear RIGHT EAR 10:03:00 PM Medical EDT Center H91.90 Unspecified hearing UNSPECIFIED Diagnosis 01/22/2020 Krystina Dixon loss, unspecified HEARING LOSS, 10:03:00 PM Med ical ear UNSPECIFIED EAR EDT Center Z72.0 Tobacco use TOBACCO USE Diagnosis 01/03/2020 [place] s 06:01:00 AM Medical EDT Center Y90.8 Blood alcohol level BLOOD ALCOHOL Diagnosis 01/03/2020 Sa int [facility] of 240 mg/100 ml or LEVEL OF 240 06:01:00 AM Me dical more MG/100 ML OR MORE EDT Center R06.00 Dyspnea, DYSPNEA, Diagnosis 01/03/2020 [facility] unspecified UNSPECIFIED 06:01:00 AM Medical EDT Center R06.02 Shortness of breath SHORTNESS OF Diagnosis 01/03/2020 Asa nt [facility] BREATH 06:01:00 AM Medical EDT Center Z00.8 Encounter for other ENCOUNTER FOR Diagnosis 01/01/2020 Sa int [place] general examination OTHER GENERAL 07:56:00 AM M edical EXAMINATION EDT Center F10.229 Alcohol dependence ALCOHOL DEPENDENCE Diagnosis 0 [facility] with intoxication, WITH INTOXICATION, 12:09:00 PM Medical unspecified UNSPECIFIED EDT Center M79.661 Pain in right lower PAIN IN RIGHT Diagnosis 12/03/2019 Sa int [place] leg LOWER LEG 01:29:00 PM Medical EDT Center M79.662 Pain in left lower PAIN IN LEFT LOWER Diagnosis 0 [facility] leg LEG 01:29:00 PM Medical EDT Center M79.606 Pain in leg, PAIN IN LEG, Diagnosis 12/03/2019 [facility] Tamayo phs unspecified UNSPECIFIED 01:29:00 PM Medical EDT Center I48.91 Unspecified atrial UNSPECIFIED ATRIAL Diagnosis 0 [facility] fibrillation FIBRILLATION 05:59:00 PM Medical EDT Center J45.901 Unspecified asthma UNSPECIFIED ASTHMA Diagnosis 0 [facility] with (acute) WITH (ACUTE) 05:59:00 PM Medical exacerbation EXACERBATION EDT Center R05 Cough COUGH Diagnosis 11/30/2019 [facility] 05:59:00 PM Medical EDT Center M54.9 Dorsalgia, DORSALGIA, Diagnosis 11/02/2019 [facility] unspecified UNSPECIFIED 09:16:00 AM Medical EST Center Y92.[address] Diagnosis 11/01/2019 [facility] or not applicable OR NOT APPLICABLE 03:26:00 PM Medical EST Center W19.XXXA Unspecified fall, UNSPECIFIED FALL, Diagnosis 11/01/2019 [facility] initial encounter INITIAL ENCOUNTER 03:26:00 PM Medical EST Center I11.0 Hypertensive heart HYPERTENSIVE HEART Diagnosis 0 [facility] disease with heart DISEASE WITH HEART 08:57:00 AM Medical failure FAILURE EST Center I50.22 Chronic systolic CHRONIC SYSTOLIC Diagnosis 11/01/2019 Sa int [place] (congestive) heart (CONGESTIVE) HEART 08:57:00 AM Medical failure FAILURE EST Center I48.20 CHRONIC ATRIAL CHRONIC ATRIAL Diagnosis 11/01/2019 [facility] FIBRILLATION, FIBRILLATION, 08:57:00 AM Medical UNSPECIFIED UNSPECIFIED EST Center 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 Diagnosis 11/01/2019 [facility] use of (CURRENT) USE OF 08:57:00 AM Medical anticoagulants ANTICOAGULANTS EST Center J45.909 Unspecified asthma, UNSPECIFIED Diagnosis 10/31/2019 Krystina Dixon uncomplicated ASTHMA, 02:52:00 PM Medical UNCOMPLICATED EST Center J44.9 Chronic obstructive CHRONIC Diagnosis 10/29/2019 [facility] pulmonary disease, OBSTRUCTIVE 10:51:00 PM Medi amaya unspecified PULMONARY DISEASE, EST Cente r UNSPECIFIED R06.2 Wheezing WHEEZING Diagnosis 10/29/2019 [facility] 10:51:00 PM Medical EST Center Z53.21 Procedure and PROC/TRTMT NOT CRD Diagnosis 09/06/2019 Asa Dixon treatment not OUT D/T PT LV BEF 05:21:00 PM Med ical carried out due to SEEN BY [facility] EST Center patient leaving PR[place] prior to being seen by health care provider E78.5 Hyperlipidemia, HYPERLIPIDEMIA, Diagnosis 08/31/2019 Krystina Dixon unspecified UNSPECIFIED 10:35:00 AM Medical EST Center Z86.73 Personal history of PRSNL HX OF TIA Diagnosis 08/31/2019 [facility] transient ischemic (TIA), AND CEREB 10:35:00 AM Medical attack (TIA), and INFRC W/O RESID EST Ce nter cerebral infarction DEFICITS without residual deficits Y92.[address] IN UNSP Diagnosis 08/28/2019 [facility] in unspecified NON-INSTITUT 12:52:00 PM Medical non-institutional (PRIVATE) EST Center (private) residence RESIDENCE PLACE as the place of occurrence of the external cause Y93.89 Activity, other ACTIVITY, OTHER Diagnosis 08/28/2019 Krystina Dixon specified SPECIFIED 12:52:00 PM Medical EST Center I42.0 Dilated DILATED Diagnosis 03/26/2019 [facility] cardiomyopathy CARDIOMYOPATHY 11:03:00 AM Medic al EDT Center Y99.8 Other external OTHER EXTERNAL Diagnosis 02/12/2019 [facility] cause status CAUSE STATUS 11:47:00 PM Medical EDT Center R55 Syncope and SYNCOPE AND Diagnosis 02/12/2019 [facility] Gay s collapse COLLAPSE 03:38:00 PM Medical EDT Center Z04.3 Encounter for ENCOUNTER FOR EXAM Diagnosis 02/04/2019 Asabrayan Dixon examination and AND OBSERVATION 08:03:00 PM Med ical observation FOLLOWING OTH EDT Center following other ACCIDENT accident I16.0 Hypertensive HYPERTENSIVE Diagnosis 01/12/2019 [facility] Tamayo phs urgency URGENCY 03:41:00 PM Medical EDT Center I48.0 Paroxysmal atrial PAROXYSMAL ATRIAL Diagnosis 01/12/2019 [facility] fibrillation FIBRILLATION 03:41:00 PM Medical EDT Center I50.20 Unspecified UNSPECIFIED Diagnosis 01/12/2019 [facility] [place] systolic SYSTOLIC 03:41:00 PM Medical (congestive) heart (CONGESTIVE) HEART EDT Center failure FAILURE J44.0 Chronic obstructive CHRONIC Diagnosis 01/12/2019 [facility] pulmonary disease OBSTRUCTIVE PULMON 03:41:00 P M Medical with acute lower DISEASE W ACUTE EDT Melanie ter respiratory LOWER RESP INFCT infection J44.1 Chronic obstructive CHRONIC Diagnosis 01/12/2019 [facility] pulmonary disease OBSTRUCTIVE 03:41:00 PM Medic al with (acute) PULMONARY DISEASE EDT Cente r exacerbation W (ACUTE) EXACERBATION J18.9 Pneumonia, PNEUMONIA, Diagnosis 01/12/2019 [facility] unspecified UNSPECIFIED 03:41:00 PM Medical organism ORGANISM EDT Center F10.239 Alcohol dependence ALCOHOL DEPENDENCE Diagnosis 9 [facility] with withdrawal, WITH WITHDRAWAL, 03:41:00 PM edical unspecified UNSPECIFIED EDT Center A41.9 Sepsis, unspecified SEPSIS, Diagnosis 01/07/2019 [facility] organism UNSPECIFIED 04:14:00 AM Medical ORGANISM EDT Center E83.42 Hypomagnesemia HYPOMAGNESEMIA Diagnosis 12/20/2018 [facility] 02:03:00 PM Medical EDT Center Surgeries/Procedures Procedure Description Date Indications Data Source(s) ECG ROUTINE ECG 11/25/2019 eCW1 ([facility] W/[place] [address] LDS W/I&R 12:00:00 AM [facility] EST Practice ) COLLECTION VENOUS 01/21/2019 eCW1 (Krystina t BLOOD VENIPUNCTURE 12:00:00 AM [facility] EDT Practice ) HANDLG&/OR CONVEY OF 01/21/2019 eCW1 (S aint SPEC FOR TR OFFICE TO 12:00:00 AM [facility] Medical LAB EDT Practice ) ECG ROUTINE ECG 01/14/2019 eCW1 ([facility] W/[facility] 12 LDS W/I&R 12:00:00 AM [facility] EDT Practice ) OFFICE OUTPATIENT 01/14/2019 eCW1 (Krystina t VISIT 25 MINUTES 12:00:00 AM [facility] ical EDT Practice ) HANDLG&/OR CONVEY OF 01/14/2019 eCW1 (S aint SPEC FOR TR OFFICE TO 12:00:00 AM [facility] Medical LAB EDT Practice ) OFFICE OUTPATIENT 01/14/2019 eCW1 (Krystina t VISIT 40 MINUTES 12:00:00 AM [facility]LECTION VENOUS 01/14/2019 eCW1 (Psychiatric BLOOD VENIPUNCTURE [facility]:00:00 [facility] No Known procedures No Known procedures e CW1 ([facility]) No Known procedures No Known procedures e CW1 ([facility]) Results ID Date Data Source [id number] 05/01/2020 04:55:00 AM EDT [facility] 0 Name Value Range Interpretation Description Data Sup porting Code Source(s) Document(s ) UNK CLEAR <content [facility] styleCode="Kirstni Destiny d">Urine Medical Clarity Center </content>MACARIO R <content styleCode="Jody lics"> (CLEAR )</content> Color of Urine YELLOW <content [facility] styleCode="Kirstin Destiny d">Color, Medical Urine Center </content>YELL OW <content styleCode="Jody lics"> (YELLOW )</content> Glucose NEGATIVE <content [facility] [Mass/volume] styleCode="Kirstin Gays in Urine by d">Urine Medical Test strip Glucose Center </content>NEGA TIVE MG/DL<content styleCode="Jody lics"> (NEGATIVE MG/DL)</conten t> Specific 1.015-1.02 <content [facility] gravity of 5 styleCode="Kirstin Destiny Urine by Test d">Urine Medical strip Specific Center [place] </content>1.02 5 <content styleCode="Jody lics"> (1.015-1.025 )</content> Ketones NEGATIVE <content [facility] [Mass/volume] styleCode="Kirstin [place] in Urine by d">Urine Medical Test strip Ketone Center </content>NEGA TIVE MG/DL<content styleCode="Jody lics"> (NEGATIVE MG/DL)</conten t> UNK NEGATIVE <content Saint styleCode="Kirstin Destiny d">Urine Medical Bilirubin Center </content>NEGA TIVE <content styleCode="Jody lics"> (NEGATIVE )</content> Hemoglobin NEGATIVE <content Saint [Presence] in styleCode="Kirstin Gays Urine by Test d">Urine Blood Medical strip </content>TRAC Center E <content styleCode="Jody lics"> (NEGATIVE )</content> pH of Urine by 4.5-8.0 <content Saint Test strip styleCode="Kirstin Destiny d">Urine pH Medical </content>6.0 Center <content styleCode="Jody lics"> (4.5-8.0 )</content> Protein NEGATIVE <content [facility] [Mass/volume] styleCode="Kirstin Gays in Urine by d">Urine Medical Test strip Protein Center </content>30 MG/DL<content styleCode="Jody lics"> (NEGATIVE MG/DL)</conten t> Urobilinogen 0.2-1.0 <content [facility] [Units/volume] styleCode="Kirstin [place] in Urine by d">Urine Medical Test strip Urobilinogen Center </content>0.2 MG/DL<content styleCode="Jody lics"> (0.2-1.0 MG/DL)</conten t> Nitrite NEGATIVE <content Saint [Presence] in styleCode="Kirstin Gays Urine by Test d">Urine Medical strip Nitrite Center </content>NEGA TIVE <content styleCode="Jody lics"> (NEGATIVE )</content> UNK 0-3 <content Saint styleCode="Kirstin Destiny d">Urine Red Medical Blood Cell Center </content>0-3 HPF<content styleCode="Jody lics"> (0-3 HPF)</content> Leukocyte NEGATIVE <content Saint esterase styleCode="Kirstin Gays [Presence] in d">Urine Medical Urine by Test Leukocyte Center strip </content>NEGA TIVE <content styleCode="Jody lics"> (NEGATIVE )</content> UNK 0-3 <content Saint styleCode="Kirstin Destiny d">Urine White Medical Blood Cell Center </content>0-3 HPF<content styleCode="Jody lics"> (0-3 HPF)</content> UNK NEGATIVE <content Saint styleCode="Kirstin Destiny d">Urine Medical Bacteria Center </content>FEW HPF<content styleCode="Jody lics"> (NEGATIVE HPF)</content> ID Date Data Source Liver 04/30/2020 08:15:00 PM EDT [facility] [id number] Name Value Range Interpretation Description Data Sup porting Code Source(s) Document(s ) Alkaline 38-126 <content [facility] phosphatase styleCode="Bold"> [facility] [Enzymatic Alkaline Medical activity/volume] Phosphatase (ALP) Cente r in Serum or Plasma </content>68 IU/L<content styleCode="Italic s"> (38-126 IU/L)</content> Alanine 7-50 <content [facility] aminotransferase styleCode="Bold"> Adi hs [Enzymatic Alanine Medical activity/volume] Aminotransferase Center in Serum or Plasma (ALT) </content>12 IU/L<content styleCode="Italic s"> (7-50 IU/L)</content> Bilirubin.total 0.2-1.3 <content [facility] [Mass/volume] in styleCode="Bold"> Adi hs Serum or Plasma Bilirubin Total Medical </content>0.4 Center MG/DL<content styleCode="Italic s"> (0.2-1.3 MG/DL)</content> Aspartate 17-59 <content [facility] aminotransferase styleCode="Bold"> Adi hs [Enzymatic Aspartate Medical activity/volume] Aminotransferase Center in Serum or Plasma (AST) </content>31 IU/L<content styleCode="Italic s"> (17-59 IU/L)</content> Albumin 3.5-5.0 Below low <content Saint [Mass/volume] in normal styleCode="Bold"> Adi hs Serum or Plasma Albumin Medical </content>3.1 Center G/DL L<content styleCode="Italic s"> (3.5-5.0 G/DL)</content> ID Date Data Source HematologyRou.[id number] 04/30/2020 08:15:00 PM EDT [facility] 0400 Name Value Range Interpretation Description Data Sup porting Code Source(s) Document(s ) Leukocytes 4.4-11.0 <content Saint [#/volume] in styleCode="Bold Destiny Blood by ">White Blood Medical Automated count Cell Count Center </content>8.42 KCUMM<content styleCode="Ital ics"> (4.4-11.0 KCUMM)</content > Hematocrit 41.0-53. Below low normal <content Saint [Volume 0 styleCode="Bold Destiny Fraction] of ">Hematocrit Medical Blood by </content>35.7 Center Automated count % L<content styleCode="Ital ics"> (41.0-53.0 %)</content> Hemoglobin 13.5-17. Below low normal <content [facility] [Mass/volume] in 5 styleCode="Bold Destiny Blood ">Hemoglobin Medical </content>11.0 Center G/DL L<content styleCode="Ital ics"> (13.5-17.5 G/DL)</content> Erythrocytes 4.4-5.9 Below low normal <content [facility] [#/volume] in styleCode="Bold [place] Blood by ">Red Blood Medical Automated count Cell Count Center </content>4.10 MCUMM L<content styleCode="Ital ics"> (4.4-5.9 MCUMM)</content > Platelet mean 8.0-11.0 <content [facility] volume [Entitic styleCode="Bold Destniy volume] in Blood ">Mean Platelet Medical by Automated Volume Center count </content>10.0 FL<content styleCode="Ital ics"> (8.0-11.0 FL)</content> Erythrocyte mean 26.0-34. <content [facility] corpuscular 0 styleCode="Bold [place]iny hemoglobin ">Mean Medical [Entitic mass] Corposcular Center by Automated Hemoglobin count </content>26.8 PG<content styleCode="Ital ics"> (26.0-34.0 PG)</content> Erythrocyte 11.5-14. Above high <content Saint distribution 5 normal styleCode="Bold Destiny width [Ratio] by ">Red Cell Medical Automated count Distribution Center Width </content>21.7 % H<content styleCode="Ital ics"> (11.5-14.5 %)</content> Erythrocyte mean 32.0-37. Below low normal <content [facility] corpuscular 0 styleCode="Bold [place] hemoglobin ">Mean Corpus. Medical concentration Hgb Center [Mass/volume] by Concentration Automated count (MCHC) </content>30.8 G/DL L<content styleCode="Ital ics"> (32.0-37.0 G/DL)</content> Erythrocyte mean 80.0-100 <content [facility] corpuscular .0 styleCode="Bold Destiny volume [Entitic ">Mean Medical volume] by Corpuscular Center Automated count Volume </content>87.1 FL<content styleCode="Ital ics"> (80.0-100.0 FL)</content> Platelets 130-400 <content Saint [#/volume] in styleCode="Bold [place] Blood by ">Platelet Medical Automated count Count Center </content>227 KCUMM<content styleCode="Ital ics"> (130-400 KCUMM)</content > UNK 1.6-7.3 <content Saint styleCode="Bold Destiny ">Neutrophil Medical Count Center </content>4.96 KCUMM<content styleCode="Ital ics"> (1.6-7.3 KCUMM)</content > UNK 1.0-4.8 <content Saint styleCode="Bold Destiny ">Lymphocyte Medical Count Center </content>2.81 KCUMM<content styleCode="Ital ics"> (1.0-4.8 KCUMM)</content > Monocytes 3.0-10.0 <content Saint [#/volume] in styleCode="Bold [place] Blood by ">Monocyte Medical Automated count </content>6.2 Center %<content styleCode="Ital ics"> (3.0-10.0 %)</content> Neutrophils 36-66 <content Saint [#/volume] in styleCode="Bold [place] Blood by ">Neutrophil Medical Automated count </content>58.8 Center %<content styleCode="Ital ics"> (36-66 %)</content> Lymphocytes 24.0-44. <content [facility] [#/volume] in 0 styleCode="Bold Destiny Blood by ">Lymphocyte Medical Automated count </content>33.4 Center %<content styleCode="Ital ics"> (24.0-44.0 %)</content> UNK 0.2-0.9 <content [facility] styleCode="Bold Destiny ">Monocyte Medical Count Center </content>0.52 KCUMM<content styleCode="Ital ics"> (0.2-0.9 KCUMM)</content > Eosinophils 0-5.0 <content [facility] [#/volume] in styleCode="Bold Destiny Blood by ">Eosinophil Medical Automated count </content>0.5 Center %<content styleCode="Ital ics"> (0-5.0 %)</content> Basophils 0.0-1.0 <content [facility] [#/volume] in styleCode="Bold Destiny Blood by ">Basophil Medical Automated count </content>0.6 Center %<content styleCode="Ital ics"> (0.0-1.0 %)</content> UNK 0.0-0.6 <content [facility] styleCode="Bold Destiny ">Eosinophil Medical Count Center </content>0.04 KCUMM<content styleCode="Ital ics"> (0.0-0.6 KCUMM)</content > UNK 0.0-0.3 <content [facility] styleCode="Bold Destiny ">Basophil Medical Count Center </content>0.05 KCUMM<content styleCode="Ital ics"> (0.0-0.3 KCUMM)</content > UNK 0-0.1 <content [facility] styleCode="Bold Destiny ">Immature Medical Granulocyte Center Count </content>0.04 KCUMM<content styleCode="Ital ics"> (0-0.1 KCUMM)</content > UNK 0 <content [facility] styleCode="Bold Destiny ">Nucleated Red Medical Blood Cell Center </content>0.0 /100<content styleCode="Ital ics"> (0 /100)</content> UNK 0.0 <content [facility] styleCode="Bold Destiny ">Nucleated Red Medical Blood Cell Center Count </content>0.00 KCUMM<content styleCode="Ital ics"> (0.0 KCUMM)</content > UNK < 1 <content [facility] styleCode="Bold Destiny ">Immature Medical Granulocyte Center Ratio </content>0.5 %<content styleCode="Ital ics"> (< 1 %)</content> ID Date Data Source GFR(Creatinine).[id number] 04/30/2020 08:15:00 PM EDT [facility] 0-0400 Name Value Range Interpretation Code Description Data Loyda rce(s) Supporting Document(s ) UNK > 60 <content [facility] styleCode="Bold"> Medical Cent er EGFR </content>77 GFR<content styleCode="Italic s"> (> 60 GFR)</content> ID Date Data Source CHMROUTINECCDA.[id number] 04/30/2020 08:15:00 PM EDT [facility] -0400 Name Value Range Interpretation Description Data Sup porting Code Source(s) Document(s ) UNK >= 1.0 <content [facility] styleCode="Bold Medical ">AG Ratio Center </content>1.1 <content styleCode="Ital ics"> (>= 1.0 )</content> Protein 6.3-8.2 Below low normal <content [place] [Mass/volum styleCode="Bold Medical e] in Serum ">Total Protein Center or Plasma </content>5.8 G/DL L<content styleCode="Ital ics"> (6.3-8.2 G/DL)</content> Lactate 0.7-2.0 <content [place] [Mass/volum styleCode="Bold Medical e] in Serum ">Lactic Acid Center or Plasma </content>1.6 MMOLL<content styleCode="Ital ics"> (0.7-2.0 MMOLL)</content > UNK 2.3-3.5 <content [facility] styleCode="Bold Medical ">Globulin Center </content>2.7 G/DL<content styleCode="Ital ics"> (2.3-3.5 G/DL)</content> ID Date Data Source [facility].[id number] 04/30/2020 08:15:00 PM EDT [facility] Name Value Range Interpretation Description Data Sup porting Code Source(s) Document(s ) Potassium 3.5-5.3 <content [facility] [Moles/volume] in styleCode="Bold"> Roni phs Serum or Plasma Potassium Medical </content>3.6 Center MEQ/L<content styleCode="Italic s"> (3.5-5.3 MEQ/L)</content> Chloride 98-107 Above high <content [facility] [Moles/volume] in normal styleCode="Bold"> Roni phs Serum or Plasma Chloride Medical </content>110 Center MEQ/L H<content styleCode="Italic s"> (98-107 MEQ/L)</content> Sodium 137-145 <content [facility] [Moles/volume] in styleCode="Bold"> Roni phs Serum or Plasma Sodium Medical </content>142 Center MEQ/L<content styleCode="Italic s"> (137-145 MEQ/L)</content> Carbon dioxide, 22-30 <content [facility] total styleCode="Bold"> Destiny [Moles/volume] in Carbon Dioxide Medical Serum or Plasma </content>24 Center MEQ/L<content styleCode="Italic s"> (22-30 MEQ/L)</content> UNK 9-20 <content [facility] styleCode="Bold"> Destiny BUN </content>16 Medical MG/DL<content Center styleCode="Italic s"> (9-20 MG/DL)</content> UNK > 60 <content [facility] styleCode="Bold"> Destiny EGFR </content>77 Medical GFR<content Center styleCode="Italic s"> (> 60 GFR)</content> Calcium 8.4-10. <content [facility] [Mass/volume] in 2 styleCode="Bold"> Adi hs Serum or Plasma Calcium Medical </content>8.5 Center MG/DL<content styleCode="Italic s"> (8.4-10.2 MG/DL)</content> Aspartate 17-59 <content [facility] aminotransferase styleCode="Bold"> Adi hs [Enzymatic Aspartate Medical activity/volume] Aminotransferase Center in Serum or Plasma (AST) </content>31 IU/L<content styleCode="Italic s"> (17-59 IU/L)</content> Glucose 74-106 <content [facility] [Mass/volume] in styleCode="Bold"> Adi hs Serum or Plasma Glucose Medical </content>102 Center MG/DL<content styleCode="Italic s"> (74-106 MG/DL)</content> Creatinine 0.5-1.3 <content [facility] [Mass/volume] in styleCode="Bold"> Adi hs Serum or Plasma Creatinine Medical </content>1.2 Center MG/DL<content styleCode="Italic s"> (0.5-1.3 MG/DL)</content> Alanine 7-50 <content [facility] aminotransferase styleCode="Bold"> Adi hs [Enzymatic Alanine Medical activity/volume] Aminotransferase Center in Serum or Plasma (ALT) </content>12 IU/L<content styleCode="Italic s"> (7-50 IU/L)</content> Bilirubin.total 0.2-1.3 <content [facility] [Mass/volume] in styleCode="Bold"> Adi hs Serum or Plasma Bilirubin Total Medical </content>0.4 Center MG/DL<content styleCode="Italic s"> (0.2-1.3 MG/DL)</content> Albumin 3.5-5.0 Below low <content [facility] [Mass/volume] in normal styleCode="Bold"> Adi hs Serum or Plasma Albumin Medical </content>3.1 Center G/DL L<content styleCode="Italic s"> (3.5-5.0 G/DL)</content> Alkaline 38-126 <content [facility] phosphatase styleCode="Bold"> Destiny [Enzymatic Alkaline Medical activity/volume] Phosphatase (ALP) Cente r in Serum or Plasma </content>68 IU/L<content styleCode="Italic s"> (38-126 IU/L)</content> ID Date Data Source [id number] 03/31/2020 01:40:00 PM EDT [facility] Name Value Range Interpretation Description Data Sup porting Code Source(s) Document(s ) SARS [facility] coronavirus 2 RNA This lab was ordered by [facility] and reported by [facility]. ID Date Data Source [id number] 03/23/2020 05:05:00 AM EDT [facility] Name Value Range Interpretation Description Data Sup porting Code Source(s) Document(s ) SARS [facility] CORONAVIRUS 2 RNA This lab was ordered by [facility] and reported by [facility]. ID Date Data Source HematologyRou.[id number] 03/09/2020 05:25:00 PM EDT [facility] 0400 Name Value Range Interpretation Description Data Sup porting Code Source(s) Document(s ) Leukocytes 4.4-11.0 <content [facility] [#/volume] in styleCode="Bold Destiny Blood by ">White Blood Medical Automated count Cell Count Center </content>8.73 KCUMM<content styleCode="Ital ics"> (4.4-11.0 KCUMM)</content > Erythrocytes 4.4-5.9 Below low normal <content [facility] [#/volume] in styleCode="Bold Destiny Blood by ">Red Blood Medical Automated count Cell Count Center </content>4.26 MCUMM L<content styleCode="Ital ics"> (4.4-5.9 MCUMM)</content > Hematocrit 41.0-53. Below low normal <content [facility] [Volume 0 styleCode="Bold Destiny Fraction] of ">Hematocrit Medical Blood by </content>35.9 Center Automated count % L<content styleCode="Ital ics"> (41.0-53.0 %)</content> Hemoglobin 13.5-17. Below low normal <content [facility] [Mass/volume] in 5 styleCode="Bold Destiny Blood ">Hemoglobin Medical </content>11.2 Center G/DL L<content styleCode="Ital ics"> (13.5-17.5 G/DL)</content> Erythrocyte mean 80.0-100 <content [facility] corpuscular .0 styleCode="Bold Destiny volume [Entitic ">Mean Medical volume] by Corpuscular Center Automated count Volume </content>84.3 FL<content styleCode="Ital ics"> (80.0-100.0 FL)</content> Erythrocyte mean 26.0-34. <content [facility] corpuscular 0 styleCode="Bold Destiny hemoglobin ">Mean Medical [Entitic mass] Corposcular Center by Automated Hemoglobin count </content>26.3 PG<content styleCode="Ital ics"> (26.0-34.0 PG)</content> Erythrocyte mean 32.0-37. Below low normal <content [facility] corpuscular 0 styleCode="Bold Destiny hemoglobin ">Mean Corpus. Medical concentration Hgb Center [Mass/volume] by Concentration Automated count (MCHC) </content>31.2 G/DL L<content styleCode="Ital ics"> (32.0-37.0 G/DL)</content> Platelets 130-400 <content [facility] [#/volume] in styleCode="Bold Destiny Blood by ">Platelet Medical Automated count Count Center </content>241 KCUMM<content styleCode="Ital ics"> (130-400 KCUMM)</content > Erythrocyte 11.5-14. Above high <content [facility] distribution 5 normal styleCode="Bold Destiny width [Ratio] by ">Red Cell Medical Automated count Distribution Center Width </content>22.2 % H<content styleCode="Ital ics"> (11.5-14.5 %)</content> Platelet mean 8.0-11.0 <content [facility] volume [Entitic styleCode="Bold Destiny volume] in Blood ">Mean Platelet Medical by Automated Volume Center count </content>10.1 FL<content styleCode="Ital ics"> (8.0-11.0 FL)</content> UNK 1.6-7.3 <content [facility] styleCode="Bold Destiny ">Neutrophil Medical Count Center </content>5.55 KCUMM<content styleCode="Ital ics"> (1.6-7.3 KCUMM)</content > Neutrophils 36-66 <content [facility] [#/volume] in styleCode="Bold Destiny Blood by ">Neutrophil Medical Automated count </content>63.7 Center %<content styleCode="Ital ics"> (36-66 %)</content> UNK 1.0-4.8 <content [facility] styleCode="Bold Destiny ">Lymphocyte Medical Count Center </content>2.55 KCUMM<content styleCode="Ital ics"> (1.0-4.8 KCUMM)</content > Lymphocytes 24.0-44. <content [facility] [#/volume] in 0 styleCode="Bold Destiny Blood by ">Lymphocyte Medical Automated count </content>29.2 Center %<content styleCode="Ital ics"> (24.0-44.0 %)</content> Monocytes 3.0-10.0 <content [facility] [#/volume] in styleCode="Bold Destiny Blood by ">Monocyte Medical Automated count </content>6.4 Center %<content styleCode="Ital ics"> (3.0-10.0 %)</content> UNK 0.2-0.9 <content [facility] styleCode="Bold Destiny ">Monocyte Medical Count Center </content>0.56 KCUMM<content styleCode="Ital ics"> (0.2-0.9 KCUMM)</content > Eosinophils 0-5.0 <content [facility] [#/volume] in styleCode="Bold Destiny Blood by ">Eosinophil Medical Automated count </content>0.2 Center %<content styleCode="Ital ics"> (0-5.0 %)</content> Basophils 0.0-1.0 <content [facility] [#/volume] in styleCode="Bold Destiny Blood by ">Basophil Medical Automated count </content>0.3 Center %<content styleCode="Ital ics"> (0.0-1.0 %)</content> UNK 0.0-0.6 <content [facility] styleCode="Bold Destiny ">Eosinophil Medical Count Center </content>0.02 KCUMM<content styleCode="Ital ics"> (0.0-0.6 KCUMM)</content > UNK 0.0-0.3 <content [facility] styleCode="Bold Destiny ">Basophil Medical Count Center </content>0.03 KCUMM<content styleCode="Ital ics"> (0.0-0.3 KCUMM)</content > UNK 0 <content [facility] styleCode="Bold Destiny ">Nucleated Red Medical Blood Cell Center </content>0.0 /100<content styleCode="Ital ics"> (0 /100)</content> UNK 0.0 <content [facility] styleCode="Bold Destiny ">Nucleated Red Medical Blood Cell Center Count </content>0.00 KCUMM<content styleCode="Ital ics"> (0.0 KCUMM)</content > UNK 0-0.1 <content [facility] styleCode="Bold Destiny ">Immature Medical Granulocyte Center Count </content>0.02 KCUMM<content styleCode="Ital ics"> (0-0.1 KCUMM)</content > UNK < 1 <content [facility] styleCode="Bold Destiny ">Immature Medical Granulocyte Center Ratio </content>0.2 %<content styleCode="Ital ics"> (< 1 %)</content> ID Date Data Source GFR(Creatinine).[id number] 03/09/2020 05:22:00 PM EDT [facility] 0-0400 Name Value Range Interpretation Code Description Data Loyda rce(s) Supporting Document(s ) UNK > 60 <content [facility] styleCode="Bold"> Medical Cent er EGFR </content>78 GFR<content styleCode="Italic s"> (> 60 GFR)</content> ID Date Data Source [facility].[id number] 03/09/2020 05:22:00 PM EDT [facility] Name Value Range Interpretation Description Data Sup porting Code Source(s) Document(s ) Sodium 137-145 <content [facility] [Moles/volume] styleCode="Kirstin Destiny in Serum or d">Sodium Medical Plasma </content>141 Center MEQ/L<content styleCode="Jody lics"> (137-145 MEQ/L)</conten t> Chloride 98-107 Above high normal <content [facility] [Moles/volume] styleCode="Kirstin Destiny in Serum or d">Chloride Medical Plasma </content>109 Center MEQ/L H<content styleCode="Jody lics"> (98-107 MEQ/L)</conten t> Potassium 3.5-5.3 <content [facility] [Moles/volume] styleCode="Kirstin Destiny in Serum or d">Potassium Medical Plasma </content>5.1 Center MEQ/L<content styleCode="Jody lics"> (3.5-5.3 MEQ/L)</conten t> Creatinine 0.5-1.3 <content [facility] [Mass/volume] styleCode="Kirstin Destiny in Serum or d">Creatinine Medical Plasma </content>1.2 Center MG/DL<content styleCode="Jody lics"> (0.5-1.3 MG/DL)</conten t> Carbon 22-30 <content [facility] dioxide, total styleCode="Kirstin Destiny [Moles/volume] d">Carbon Medical in Serum or Dioxide Center Plasma </content>22 MEQ/L<content styleCode="Jody lics"> (22-30 MEQ/L)</conten t> UNK 9-20 <content [facility] styleCode="Kirstin Destiny d">BUN Medical </content>17 Center MG/DL<content styleCode="Jody lics"> (9-20 MG/DL)</conten t> UNK > 60 <content [facility] styleCode="Kirstin Destiny d">EGFR Medical </content>78 Center GFR<content styleCode="Jody lics"> (> 60 GFR)</content> Calcium 8.4-10.2 <content [facility] [Mass/volume] styleCode="Kirstin Destiny in Serum or d">Calcium Medical Plasma </content>8.7 Center MG/DL<content styleCode="Jody lics"> (8.4-10.2 MG/DL)</conten t> Glucose 74-106 <content [facility] [Mass/volume] styleCode="Kirstin Destiny in Serum or d">Glucose Medical Plasma </content>96 Center MG/DL<content styleCode="Jody lics"> (74-106 MG/DL)</conten t> ID Date Data Source [id number] 02/17/2020 04:50:00 PM EDT [facility] Name Value Range Interpretation Description Data Sup porting Code Source(s) Document(s ) SARS [facility] CORONAVIRUS 2 RNA This lab was ordered by [facility] and reported by [facility]. ID Date Data Source LIPID.[id number] 02/01/2020 02:33:[address] [facility] Name Value Range Interpretation Description Data Sup porting Code Source(s) Document(s ) Triglyceride < 150 Above high normal <content [facility] [Mass/volume] in styleCode="Kirstin Destiny Serum or Plasma d">Triglycerid Medical es Center </content>156 MG/DL H<content styleCode="Jody lics"> (< 150 MG/DL)</conten t> Cholesterol -<200 <content [facility] [Mass/volume] in styleCode="Kirstin Destiny Serum or Plasma d">Cholesterol Medical </content>128 Center MG/DL<content styleCode="Jody lics"> (-<200 MG/DL)</conten t> UNK < 100 <content [facility] styleCode="Kirstin Destiny d">LDL-Cholest [facility] Center </content>35 MG/DL<content styleCode="Jody lics"> (< 100 MG/DL)</conten t> UNK > 60 <content [facility] styleCode="Kirstin Destiny d">HDL- Medical Cholesterol Center </content>62 MG/DL<content styleCode="Jody lics"> (> 60 MG/DL)</conten t> ID Date Data Source HematologyRou.[id number] 02/01/2020 02:33:00 PM EDT [facility] 0400 Name Value Range Interpretation Description Data Sup porting Code Source(s) Document(s ) Leukocytes 4.4-11.0 <content [facility] [#/volume] in styleCode="[facility] Blood by ">White Blood Medical Automated count Cell Count Center </content>7.03 KCUMM<content styleCode="Ital ics"> (4.4-11.0 KCUMM)</content > Erythrocytes 4.4-5.9 Below low normal <content [facility] [#/volume] in styleCode="Bold Destiny Blood by ">Red Blood Medical Automated count Cell Count Center </content>4.38 MCUMM L<content styleCode="Ital ics"> (4.4-5.9 MCUMM)</content > Hemoglobin 13.5-17. Below low normal <content [facility] [Mass/volume] in 5 styleCode="Bold Destiny Blood ">Hemoglobin Medical </content>12.7 Center G/DL L<content styleCode="Ital ics"> (13.5-17.5 G/DL)</content> Erythrocyte mean 80.0-100 <content [facility] corpuscular .0 styleCode="Bold Destiny volume [Entitic ">Mean Medical volume] by Corpuscular Center Automated count Volume </content>92.0 FL<content styleCode="Ital ics"> (80.0-100.0 FL)</content> Hematocrit 41.0-53. Below low normal <content [facility] [Volume 0 styleCode="Bold Destiny Fraction] of ">Hematocrit Medical Blood by </content>40.3 Center Automated count % L<content styleCode="Ital ics"> (41.0-53.0 %)</content> Erythrocyte mean 26.0-34. <content [facility] corpuscular 0 styleCode="Bold Destiny hemoglobin ">Mean Medical [Entitic mass] Corposcular Center by Automated Hemoglobin count </content>29.0 PG<content styleCode="Ital ics"> (26.0-34.0 PG)</content> Platelets 130-400 <content [facility] [#/volume] in styleCode="Bold Destiny Blood by ">Platelet Medical Automated count Count Center </content>223 KCUMM<content styleCode="Ital ics"> (130-400 KCUMM)</content > Erythrocyte 11.5-14. Above high <content [facility] distribution 5 normal styleCode="Bold Destiny width [Ratio] by ">Red Cell Medical Automated count Distribution Center Width </content>18.6 % H<content styleCode="Ital ics"> (11.5-14.5 %)</content> Erythrocyte mean 32.0-37. Below low normal <content [facility] corpuscular 0 styleCode="Bold Destiny hemoglobin ">Mean Corpus. Medical concentration Hgb Center [Mass/volume] by Concentration Automated count (MCHC) </content>31.5 G/DL L<content styleCode="Ital ics"> (32.0-37.0 G/DL)</content> UNK 0.0 <content [facility] styleCode="Bold Destiny ">Nucleated Red Medical Blood Cell Center Count </content>0.00 KCUMM<content styleCode="Ital ics"> (0.0 KCUMM)</content > Platelet mean 8.0-11.0 <content [facility] volume [Entitic styleCode="Bold Destiny volume] in Blood ">Mean Platelet Medical by Automated Volume Center count </content>9.1 FL<content styleCode="Ital ics"> (8.0-11.0 FL)</content> UNK 0 <content [facility] styleCode="Bold Destiny ">Nucleated Red Medical Blood Cell Center </content>0.0 /100<content styleCode="Ital ics"> (0 /100)</content> UNK NORMAL <content [facility] styleCode="Bold Destiny ">Platelet Medical Estimate Center </content>ARIANNA L <content styleCode="Ital ics"> (NORMAL )</content> UNK NORMAL <content [facility] styleCode="Bold Destiny ">RBC Medical Morphology Center </content>ARIANNA L <content styleCode="Ital ics"> (NORMAL )</content> ID Date Data Source GFR(Creatinine).[id number] 02/01/2020 02:33:00 PM EDT [facility] 0-0400 Name Value Range Interpretation Code Description Data Loyda rce(s) Supporting Document(s ) UNK > 60 <content [facility] styleCode="Bold"> Medical Cent er EGFR </content>96 GFR<content styleCode="Italic s"> (> 60 GFR)</content> ID Date Data Source Coagulation 02/01/2020 02:33:00 PM [facility] Rout.[id number] EDT Name Value Range Interpretation Description Data Sup porting Code Source(s) Document(s ) UNK 9.0-13.0 <content [facility] styleCode="Bold" Destiny >Protime Medical </content>11.7 Center SEC<content styleCode="Itali cs"> (9.0-13.0 SEC)</content> INR in 0.80-1.2 <content [facility] Platelet poor 0 styleCode="Bold" Destiny plasma by >INR Medical Coagulation </content>1.05 Center assay #<content styleCode="Itali cs"> (0.80-1.20 #)</content> aPTT in 25.1-36. <content [facility] Platelet poor 5 styleCode="Bold" Destiny plasma by >Partial Medical Coagulation Thromboplastin Center assay Time </content>30.1 SEC<content styleCode="Itali cs"> (25.1-36.5 SEC)</content> ID Date Data Source [employer]iac[employer]ers.[id number] 02/01/2020 02:33:00 PM [facility] Name Value Range Interpretation Description Data Sup porting Code Source(s) Document(s ) Troponin < 0.034 <content [facility] I.cardiac styleCode="Bold Destiny [Mass/volume ">Troponin I Medical ] in Serum </content>< Center or Plasma 0.012 NG/ML<content styleCode="Ital ics"> (< 0.034 NG/ML)</content > ID Date Data Source [id number] 02/01/2020 02:33:00 PM EDT [facility] Name Value Range Interpretation Description Data Sup porting Code Source(s) Document(s ) Sodium 137-145 <content [facility] [Moles/volume] styleCode="Kirstin Destiny in Serum or d">Sodium Medical Plasma </content>142 Center MEQ/L<content styleCode="Jody lics"> (137-145 MEQ/L)</conten t> Chloride 98-107 <content [facility] [Moles/volume] styleCode="Kirstin Gays in Serum or d">Chloride Medical Plasma </content>106 Center MEQ/L<content styleCode="Jody lics"> (98-107 MEQ/L)</conten t> Potassium 3.5-5.3 <content [facility] [Moles/volume] styleCode="Kirstin Destiny in Serum or d">Potassium Medical Plasma </content>3.6 Center MEQ/L<content styleCode="Jody lics"> (3.5-5.3 MEQ/L)</conten t> Creatinine 0.5-1.3 <content [facility] [Mass/volume] styleCode="Kirstin Gays in Serum or d">Creatinine Medical Plasma </content>1.0 Center MG/DL<content styleCode="Jody lics"> (0.5-1.3 MG/DL)</conten t> Carbon 22-30 <content [facility] dioxide, total styleCode="Kirstin Gays [Moles/volume] d">Carbon Medical in Serum or Dioxide Center Plasma </content>26 MEQ/L<content styleCode="Jody lics"> (22-30 MEQ/L)</conten t> UNK 9-20 Below low normal <content [facility] styleCode="Kirstin Gays d">BUN Medical </content>8 Center MG/DL L<content styleCode="Jody lics"> (9-20 MG/DL)</conten t> Calcium 8.4-10.2 <content [facility] [Mass/volume] styleCode="Kirstin Gays in Serum or d">Calcium Medical Plasma </content>8.8 Center MG/DL<content styleCode="Jody lics"> (8.4-10.2 MG/DL)</conten t> Glucose 74-106 Above high normal <content [facility] [Mass/volume] styleCode="Kirstin Destiny in Serum or d">Glucose Medical Plasma </content>136 Center MG/DL H<content styleCode="Jody lics"> (74-106 MG/DL)</conten t> UNK > 60 <content [facility] styleCode="Kirstin Destiny d">EGFR Medical </content>96 Center GFR<content styleCode="Jody lics"> (> 60 GFR)</content> ID Date Data Source [id number] 01/29/2020 07:37:00 PM EDT [facility] Name Value Range Interpretation Description Data Sup porting Code Source(s) Document(s ) Potassium 3.5-5.3 <content [facility] [Moles/volume styleCode="Kirstin Destiny ] in Serum or d">Potassium Medical Plasma </content>4.4 Center MEQ/L<content styleCode="Jody lics"> (3.5-5.3 MEQ/L)</conten t> ID Date Data Source [id number] 01/29/2020 07:12:00 PM EDT [facility] Name Value Range Interpretation Description Data Sup porting Code Source(s) Document(s ) Potassium <content [facility] [Moles/volume styleCode="Bold Medical ] in Serum or ">Potassium Center Plasma </content>Test not performed. MEQ/L (Reference Range: not available)
ID Date Data Source [id number] 01/29/2020 03:52:00 PM EDT [facility] Name Value Range Interpretation Description Data Sup porting Code Source(s) Document(s ) Potassium 3.5-5.3 Below lower panic <content [facility] [Moles/volume limits styleCode="Kirstin Destiny ] in Serum or d">Potassium Medical Plasma </content><con Center tent styleCode="Kirstin d">2.7 MEQ/L LL</content><c ontent styleCode="Jody lics"> (3.5-5.3 MEQ/L)</conten t> ID Date Data Source Liver 01/29/2020 02:20:00 PM EDT [facility] Profile.[id number] Name Value Range Interpretation Description Data Sup porting Code Source(s) Document(s ) Aspartate 17-59 <content [facility] aminotransferase styleCode="Bold"> Adi hs [Enzymatic Aspartate Medical activity/volume] Aminotransferase Center in Serum or Plasma (AST) </content>43 IU/L<content styleCode="Italic s"> (17-59 IU/L)</content> Alanine 7-50 <content [facility] aminotransferase styleCode="Bold"> Adi hs [Enzymatic Alanine Medical activity/volume] Aminotransferase Center in Serum or Plasma (ALT) </content>12 IU/L<content styleCode="Italic s"> (7-50 IU/L)</content> Alkaline 38-126 <content [facility] phosphatase styleCode="Bold"> Destiny [Enzymatic Alkaline Medical activity/volume] Phosphatase (ALP) Cente r in Serum or Plasma </content>91 IU/L<content styleCode="Italic s"> (38-126 IU/L)</content> Bilirubin.total 0.2-1.3 <content [facility] [Mass/volume] in styleCode="Bold"> Adi hs Serum or Plasma Bilirubin Total Medical </content>0.6 Center MG/DL<content styleCode="Italic s"> (0.2-1.3 MG/DL)</content> Albumin 3.5-5.0 <content [facility] [Mass/volume] in styleCode="Bold"> Adi hs Serum or Plasma Albumin Medical </content>3.8 Center G/DL<content styleCode="Italic s"> (3.5-5.0 G/DL)</content> UNK 0.0-0.3 <content [facility] styleCode="Bold"> Destiny Bilirubin, Direct Medical </content>< 0.2 Center MG/DL<content styleCode="Italic s"> (0.0-0.3 MG/DL)</content> ID Date Data Source HematologyRou.[id number] 01/29/2020 02:20:00 PM EDT [facility] 0400 Name Value Range Interpretation Description Data Sup porting Code Source(s) Document(s ) Hemoglobin 13.5-17. Below low normal <content [facility] [Mass/volume] in 5 styleCode="Bold Destiny Blood ">Hemoglobin Medical </content>13.4 Center G/DL L<content styleCode="Ital ics"> (13.5-17.5 G/DL)</content> Erythrocytes 4.4-5.9 <content [facility] [#/volume] in styleCode="Bold Destiny Blood by ">Red Blood Medical Automated count Cell Count Center </content>4.68 MCUMM<content styleCode="Ital ics"> (4.4-5.9 MCUMM)</content > Leukocytes 4.4-11.0 <content [facility] [#/volume] in styleCode="Bold Destiny Blood by ">White Blood Medical Automated count Cell Count Center </content>9.34 KCUMM<content styleCode="Ital ics"> (4.4-11.0 KCUMM)</content > Hematocrit 41.0-53. <content [facility] [Volume 0 styleCode="Bold Destiny Fraction] of ">Hematocrit Medical Blood by </content>42.6 Center Automated count %<content styleCode="Ital ics"> (41.0-53.0 %)</content> Erythrocyte mean 80.0-100 <content [facility] corpuscular .0 styleCode="Bold Destiny volume [Entitic ">Mean Medical volume] by Corpuscular Center Automated count Volume </content>91.0 FL<content styleCode="Ital ics"> (80.0-100.0 FL)</content> Erythrocyte mean 26.0-34. <content [facility] corpuscular 0 styleCode="Bold Destiny hemoglobin ">Mean Medical [Entitic mass] Corposcular Center by Automated Hemoglobin count </content>28.6 PG<content styleCode="Ital ics"> (26.0-34.0 PG)</content> Platelets 130-400 <content [facility] [#/volume] in styleCode="Bold Destiny Blood by ">Platelet Medical Automated count Count Center </content>260 KCUMM<content styleCode="Ital ics"> (130-400 KCUMM)</content > Erythrocyte mean 32.0-37. Below low normal <content [facility] corpuscular 0 styleCode="Bold Destiny hemoglobin ">Mean Corpus. Medical concentration Hgb Center [Mass/volume] by Concentration Automated count (MCHC) </content>31.5 G/DL L<content styleCode="Ital ics"> (32.0-37.0 G/DL)</content> Erythrocyte 11.5-14. Above high <content [facility] distribution 5 normal styleCode="Bold Destiny width [Ratio] by ">Red Cell Medical Automated count Distribution Center Width </content>18.7 % H<content styleCode="Ital ics"> (11.5-14.5 %)</content> Neutrophils 36-66 <content [facility] [#/volume] in styleCode="Bold Destiny Blood by ">Neutrophil Medical Automated count </content>63.9 Center %<content styleCode="Ital ics"> (36-66 %)</content> Platelet mean 8.0-11.0 <content [facility] volume [Entitic styleCode="Bold Destiny volume] in Blood ">Mean Platelet Medical by Automated Volume Center count </content>10.2 FL<content styleCode="Ital ics"> (8.0-11.0 FL)</content> UNK 1.6-7.3 <content [facility] styleCode="Bold Destiny ">Neutrophil Medical Count Center </content>5.96 KCUMM<content styleCode="Ital ics"> (1.6-7.3 KCUMM)</content > UNK 1.0-4.8 <content [facility] styleCode="Bold Destiny ">Lymphocyte Medical Count Center </content>2.51 KCUMM<content styleCode="Ital ics"> (1.0-4.8 KCUMM)</content > Lymphocytes 24.0-44. <content [facility] [#/volume] in 0 styleCode="Bold Destiny Blood by ">Lymphocyte Medical Automated count </content>26.9 Center %<content styleCode="Ital ics"> (24.0-44.0 %)</content> Monocytes 3.0-10.0 <content [facility] [#/volume] in styleCode="Bold Destiny Blood by ">Monocyte Medical Automated count </content>7.5 Center %<content styleCode="Ital ics"> (3.0-10.0 %)</content> Eosinophils 0-5.0 <content [facility] [#/volume] in styleCode="Bold Destiny Blood by ">Eosinophil Medical Automated count </content>0.6 Center %<content styleCode="Ital ics"> (0-5.0 %)</content> UNK 0.0-0.6 <content [facility] styleCode="Bold Destiny ">Eosinophil Medical Count Center </content>0.06 KCUMM<content styleCode="Ital ics"> (0.0-0.6 KCUMM)</content > UNK 0.2-0.9 <content [facility] styleCode="Bold Destiny ">Monocyte Medical Count Center </content>0.70 KCUMM<content styleCode="Ital ics"> (0.2-0.9 KCUMM)</content > Basophils 0.0-1.0 <content [facility] [#/volume] in styleCode="Bold Destiny Blood by ">Basophil Medical Automated count </content>0.4 Center %<content styleCode="Ital ics"> (0.0-1.0 %)</content> UNK 0 Above high <content [facility] normal styleCode="Bold Destiny ">Nucleated Red Medical Blood Cell Center </content>0.2 /100 H<content styleCode="Ital ics"> (0 /100)</content> UNK 0.0-0.3 <content [facility] styleCode="Bold Destiny ">Basophil Medical Count Center </content>0.04 KCUMM<content styleCode="Ital ics"> (0.0-0.3 KCUMM)</content > UNK 0.0 Above high <content [facility] normal styleCode="Bold Destiny ">Nucleated Red Medical Blood Cell Center Count </content>0.02 KCUMM H<content styleCode="Ital ics"> (0.0 KCUMM)</content > UNK 0-0.1 <content [facility] styleCode="Bold Destiny ">Immature Medical Granulocyte Center Count </content>0.07 KCUMM<content styleCode="Ital ics"> (0-0.1 KCUMM)</content > UNK < 1 <content [facility] styleCode="Bold Destiny ">Immature Medical Granulocyte Center Ratio </content>0.7 %<content styleCode="Ital ics"> (< 1 %)</content> ID Date Data Source GFR(Creatinine).[id number] 01/29/2020 02:20:00 PM EDT [facility] 0-0400 Name Value Range Interpretation Code Description Data Loyda rce(s) Supporting Document(s ) UNK > 60 <content [facility] styleCode="Bold"> Medical Cent er EGFR </content>71 GFR<content styleCode="Italic s"> (> 60 GFR)</content> ID Date Data Source CHMROUTINECCDA.[id number] 01/29/2020 02:20:00 PM EDT [facility] -0400 Name Value Range Interpretation Description Data Sup porting Code Source(s) Document(s ) Magnesium 1.6-2.3 <content [facility] [Mass/volume] styleCode="Kirstin Destiny in Serum or d">Magnesium Medical Plasma </content>1.7 Center MG/DL<content styleCode="Jody lics"> (1.6-2.3 MG/DL)</conten t> ID Date Data Source [facility].[id number] 01/29/2020 02:20:00 PM EDT [facility] Name Value Range Interpretation Description Data Sup porting Code Source(s) Document(s ) Sodium 137-145 <content [facility] [Moles/volume] in styleCode="Bold"> [facility] Serum or Plasma Sodium Medical </content>137 Center MEQ/L<content styleCode="Italic s"> (137-145 MEQ/L)</content> Potassium <content [facility] [Moles/volume] in styleCode="Bold"> [facility] Serum or Plasma Potassium Medical </content>Test Center not performed. MEQ/L (Reference Range: not available)
UNK 9-20 <content [facility] styleCode="Bold"> Destiny BUN </content>12 Medical MG/DL<content Center styleCode="Italic s"> (9-20 MG/DL)</content> Chloride 98-107 <content [facility] [Moles/volume] in styleCode="Bold"> Roni phs Serum or Plasma Chloride Medical </content>99 Center MEQ/L<content styleCode="Italic s"> (98-107 MEQ/L)</content> Carbon dioxide, 22-30 <content [facility] total styleCode="Bold"> Destiny [Moles/volume] in Carbon Dioxide Medical Serum or Plasma </content>27 Center MEQ/L<content styleCode="Italic s"> (22-30 MEQ/L)</content> Calcium 8.4-10. <content [facility] [Mass/volume] in 2 styleCode="Bold"> Adi hs Serum or Plasma Calcium Medical </content>9.3 Center MG/DL<content styleCode="Italic s"> (8.4-10.2 MG/DL)</content> Glucose 74-106 Above high <content [facility] [Mass/volume] in normal styleCode="Bold"> Adi hs Serum or Plasma Glucose Medical </content>113 Center MG/DL H<content styleCode="Italic s"> (74-106 MG/DL)</content> UNK > 60 <content [facility] styleCode="Bold"> Destiny EGFR </content>71 Medical GFR<content Center styleCode="Italic s"> (> 60 GFR)</content> Creatinine 0.5-1.3 <content [facility] [Mass/volume] in styleCode="Bold"> Adi hs Serum or Plasma Creatinine Medical </content>1.3 Center MG/DL<content styleCode="Italic s"> (0.5-1.3 MG/DL)</content> Alanine 7-50 <content [facility] aminotransferase styleCode="Bold"> Adi hs [Enzymatic Alanine Medical activity/volume] Aminotransferase Center in Serum or Plasma (ALT) </content>12 IU/L<content styleCode="Italic s"> (7-50 IU/L)</content> Bilirubin.total 0.2-1.3 <content [facility] [Mass/volume] in styleCode="Bold"> Adi hs Serum or Plasma Bilirubin Total Medical </content>0.6 Center MG/DL<content styleCode="Italic s"> (0.2-1.3 MG/DL)</content> Aspartate 17-59 <content [facility] aminotransferase styleCode="Bold"> Adi hs [Enzymatic Aspartate Medical activity/volume] Aminotransferase Center in Serum or Plasma (AST) </content>43 IU/L<content styleCode="Italic s"> (17-59 IU/L)</content> Alkaline 38-126 <content [facility] phosphatase styleCode="Bold"> Destiny [Enzymatic Alkaline Medical activity/volume] Phosphatase (ALP) Cente r in Serum or Plasma </content>91 IU/L<content styleCode="Italic s"> (38-126 IU/L)</content> Albumin 3.5-5.0 <content [facility] [Mass/volume] in styleCode="Bold"> Adi hs Serum or Plasma Albumin Medical </content>3.8 Center G/DL<content styleCode="Italic s"> (3.5-5.0 G/DL)</content> ID Date Data Source [id number] 01/26/2020 08:43:00 PM EDT [facility] Name Value Range Interpretation Description Data Sup porting Code Source(s) Document(s ) SARS [facility] CORONAVIRUS 2 RNA This lab was ordered by [facility] and reported by [facility]. ID Date Data Source Liver 11/30/2019 08:12:00 PM EDT [facility] Profile.[id number] Name Value Range Interpretation Description Data Sup porting Code Source(s) Document(s ) Aspartate 17-59 Above high <content [facility] aminotransferase normal styleCode="Bold"> Adi hs [Enzymatic Aspartate Medical activity/volume] Aminotransferase Center in Serum or Plasma (AST) </content>98 IU/L H<content styleCode="Italic s"> (17-59 IU/L)</content> Alanine 7-50 <content [facility] aminotransferase styleCode="Bold"> Adi hs [Enzymatic Alanine Medical activity/volume] Aminotransferase Center in Serum or Plasma (ALT) </content>37 IU/L<content styleCode="Italic s"> (7-50 IU/L)</content> Alkaline 38-126 <content [facility] phosphatase styleCode="Bold"> Destiny [Enzymatic Alkaline Medical activity/volume] Phosphatase (ALP) Cente r in Serum or Plasma </content>81 IU/L<content styleCode="Italic s"> (38-126 IU/L)</content> UNK 0.0-0.3 <content [facility] styleCode="Bold"> Destiny Bilirubin, Direct Medical </content>< 0.2 Center MG/DL<content styleCode="Italic s"> (0.0-0.3 MG/DL)</content> Bilirubin.total 0.2-1.3 <content [facility] [Mass/volume] in styleCode="Bold"> Adi hs Serum or Plasma Bilirubin Total Medical </content>0.4 Center MG/DL<content styleCode="Italic s"> (0.2-1.3 MG/DL)</content> Albumin 3.5-5.0 Below low <content [facility] [Mass/volume] in normal styleCode="Bold"> Adi hs Serum or Plasma Albumin Medical </content>3.3 Center G/DL L<content styleCode="Italic s"> (3.5-5.0 G/DL)</content> ID Date Data Source GFR(Creatinine).[id number] 11/30/2019 08:12:00 PM EDT [facility] 0-0400 Name Value Range Interpretation Code Description Data Loyda rce(s) Supporting Document(s ) UNK > 60 <content [facility] styleCode="Bold"> Medical Cent er EGFR </content>78 GFR<content styleCode="Italic s"> (> 60 GFR)</content> ID Date Data Source Coagulation 11/30/2019 08:12:00 PM [facility] Rout.[id number] EDT Name Value Range Interpretation Code Description Data Loyda rce(s) Supporting Document(s ) UNK < 500 Above upper panic <content [place] s limits styleCode="Bold"> Medical Cent er D-Dimer </content><conten t styleCode="Bold"> 1607 ngFEU HH</content><cont ent styleCode="Italic s"> (< 500 ngFEU)</content> ID Date Data [id number] 11/30/2019 08:12:00 PM EDT [facility] -0400 Name Value Range Interpretation Description Data Sup porting Code Source(s) Document(s ) Lipase 23-300 <content [facility] [Enzymatic styleCode="Bold Medical activity/vo ">Lipase Center lume] in </content>121 Serum or IU/L<content Plasma styleCode="Ital ics"> (23-300 IU/L)</content> UNK 30-110 <content [facility] styleCode="Bold Medical ">Amylase Center </content>90 IU/L<content styleCode="Ital ics"> (30-110 IU/L)</content> ID Date Data Source [facility].[id number] 11/30/2019 08:12:00 PM EDT [facility] Name Value Range Interpretation Description Data Sup porting Code Source(s) Document(s ) Sodium 137-145 <content [facility] [Moles/volume] in styleCode="Bold"> [facility] Serum or Plasma Sodium Medical </content>141 Center MEQ/L<content styleCode="Italic s"> (137-145 MEQ/L)</content> Potassium 3.5-5.3 <content [facility] [Moles/volume] in styleCode="Bold"> [facility] Serum or Plasma Potassium Medical </content>3.8 Center MEQ/L<content styleCode="Italic s"> (3.5-5.3 MEQ/L)</content> Carbon dioxide, 22-30 <content [facility] total styleCode="Bold"> Destiny [Moles/volume] in Carbon Dioxide Medical Serum or Plasma </content>30 Center MEQ/L<content styleCode="Italic s"> (22-30 MEQ/L)</content> Chloride 98-107 <content [facility] [Moles/volume] in styleCode="Bold"> [facility] Serum or Plasma Chloride Medical </content>105 Center MEQ/L<content styleCode="Italic s"> (98-107 MEQ/L)</content> UNK 9-20 <content [facility] styleCode="Bold"> Destiny BUN </content>17 Medical MG/DL<content Center styleCode="Italic s"> (9-20 MG/DL)</content> Creatinine 0.5-1.3 <content [facility] [Mass/volume] in styleCode="Bold"> Adi hs Serum or Plasma Creatinine Medical </content>1.2 Center MG/DL<content styleCode="Italic s"> (0.5-1.3 MG/DL)</content> Glucose 74-106 <content [facility] [Mass/volume] in styleCode="Bold"> Adi hs Serum or Plasma Glucose Medical </content>90 Center MG/DL<content styleCode="Italic s"> (74-106 MG/DL)</content> UNK > 60 <content [facility] styleCode="Bold"> Destiny EGFR </content>78 Medical GFR<content Center styleCode="Italic s"> (> 60 GFR)</content> Calcium 8.4-10. <content [facility] [Mass/volume] in 2 styleCode="Bold"> Adi hs Serum or Plasma Calcium Medical </content>8.8 Center MG/DL<content styleCode="Italic s"> (8.4-10.2 MG/DL)</content> Alanine 7-50 <content [facility] aminotransferase styleCode="Bold"> Adi hs [Enzymatic Alanine Medical activity/volume] Aminotransferase Center in Serum or Plasma (ALT) </content>37 IU/L<content styleCode="Italic s"> (7-50 IU/L)</content> Aspartate 17-59 Above high <content [facility] aminotransferase normal styleCode="Bold"> Adi hs [Enzymatic Aspartate Medical activity/volume] Aminotransferase Center in Serum or Plasma (AST) </content>98 IU/L H<content styleCode="Italic s"> (17-59 IU/L)</content> Alkaline 38-126 <content [facility] phosphatase styleCode="Bold"> Destiny [Enzymatic Alkaline Medical activity/volume] Phosphatase (ALP) Cente r in Serum or Plasma </content>81 IU/L<content styleCode="Italic s"> (38-126 IU/L)</content> Albumin 3.5-5.0 Below low <content [facility] [Mass/volume] in normal styleCode="Bold"> Adi hs Serum or Plasma Albumin Medical </content>3.3 Center G/DL L<content styleCode="Italic s"> (3.5-5.0 G/DL)</content> Bilirubin.total 0.2-1.3 <content [facility] [Mass/volume] in styleCode="Bold"> Adi hs Serum or Plasma Bilirubin Total Medical </content>0.4 Center MG/DL<content styleCode="Italic s"> (0.2-1.3 MG/DL)</content> ID Date Data Source Microbiology.[id number] 11/30/2019 07:20:00 PM EDT [facility] 400 Name Value Range Interpretation Code Description Data Loyda rce(s) Supporting Document(s ) UNK <item><content [facility] styleCode="Bold"> Medical [facility] er Culture Status </content>
<t able><tbody><tr>< td>Specimen Number:</td><td>[id number]</td></tr ><tr><td>Sample Collection Date/Time: </td><td> 0 7:20 PM</td></tr><tr>< td>Specimen Source:</td><td>B LOOD</td></tr><tr ><td>Culture Report:</td><td>N O GROWTH 5 DAYS </td></tr><tr><td >Culture Status:</td><td>F inal </td></tr><tr><td >Blood Culture:</td><td> Collection Plate Date: 11/30/2019 19:28 </td></tr></tbody ></table></item> UNK <item><content [facility] styleCode="Bold"> Medical [facility] er Culture Report </content>
<t able><tbody><tr>< td>Specimen Number:</td><td>[id number]</td></tr ><tr><td>Sample Collection Date/Time: </td><td> 0 7:20 PM</td></tr><tr>< td>Specimen Source:</td><td>B LOOD</td></tr><tr ><td>Blood Culture:</td><td> Collection Plate Date: 11/30/2019 19:28 </td></tr><tr><td >Culture Status:</td><td>F inal </td></tr><tr><td >Culture Report:</td><td>N O GROWTH 5 DAYS </td></tr></tbody ></table></item> ID Date Data Source Microbiology.[id number] 11/30/2019 07:05:00 PM EDT [facility] 400 Name Value Range Interpretation Code Description Data Loyda rce(s) Supporting Document(s ) UNK <item><content [facility] styleCode="Bold"> Medical Cent er Culture Status </content>
<t able><tbody><tr>< td>Specimen Number:</td><td>[id number]</td></tr ><tr><td>Sample Collection Date/Time: </td><td> 0 7:05 PM</td></tr><tr>< td>Specimen Source:</td><td>B LOOD</td></tr><tr ><td>Culture Report:</td><td>N O GROWTH 5 DAYS </td></tr><tr><td >Culture Status:</td><td>F inal </td></tr><tr><td >Blood Culture:</td><td> Collection Plate Date: 11/30/2019 19:20 </td></tr></tbody ></table></item> UNK <item><content [facility] styleCode="Bold"> Medical Cent er Culture Report </content>
<t able><tbody><tr>< td>Specimen Number:</td><td>[id number]</td></tr ><tr><td>Sample Collection Date/Time: </td><td> 0 7:05 PM</td></tr><tr>< td>Specimen Source:</td><td>B LOOD</td></tr><tr ><td>Blood Culture:</td><td> Collection Plate Date: 11/30/2019 19:20 </td></tr><tr><td >Culture Status:</td><td>F inal </td></tr><tr><td >Culture Report:</td><td>N O GROWTH 5 DAYS </td></tr></tbody ></table></item> ID Date Data Source Liver 11/30/2019 07:05:00 PM EDT [facility] Profile.[id number] Name Value Range Interpretation Description Data Sup porting Code Source(s) Document(s ) Aspartate <content [facility] aminotransferase styleCode="Bold"> Adi hs [Enzymatic Aspartate Medical activity/volume] Aminotransferase Center in Serum or Plasma (AST) </content>Test not performed. IU/L (Reference Range: not available)
Alanine <content [facility] aminotransferase styleCode="Bold"> Adi hs [Enzymatic Alanine Medical activity/volume] Aminotransferase Center in Serum or Plasma (ALT) </content>Test not performed. IU/L (Reference Range: not available)
Alkaline <content [facility] phosphatase styleCode="Bold"> [facility] [Enzymatic Alkaline Medical activity/volume] Phosphatase (ALP) Cente r in Serum or Plasma </content>Test not performed. IU/L (Reference Range: not available)
Bilirubin.total <content [facility] [Mass/volume] in styleCode="Bold"> Adi hs Serum or Plasma Bilirubin Total Medical </content>Test Center not performed. MG/DL (Reference Range: not available)
UNK <content [facility] styleCode="Bold"> Destiny Bilirubin, Direct Medical </content>Test Center not performed. MG/DL (Reference Range: not available)
Albumin <content [facility] [Mass/volume] in styleCode="Bold"> Adi hs Serum or Plasma Albumin Medical </content>Test Center not performed. G/DL (Reference Range: not available)
ID Date Data Source HematologyRou.[id number] 11/30/2019 07:05:00 PM EDT [facility] 0400 Name Value Range Interpretation Description Data Sup porting Code Source(s) Document(s ) Erythrocytes 4.4-5.9 Below low normal <content [facility] [#/volume] in styleCode="Bold Destiny Blood by ">Red Blood Medical Automated count Cell Count Center </content>4.18 MCUMM L<content styleCode="Ital ics"> (4.4-5.9 MCUMM)</content > Leukocytes 4.4-11.0 <content [facility] [#/volume] in styleCode="Bold Destiny Blood by ">White Blood Medical Automated count Cell Count Center </content>10.75 KCUMM<content styleCode="Ital ics"> (4.4-11.0 KCUMM)</content > Erythrocyte mean 80.0-100 <content [facility] corpuscular .0 styleCode="Bold Destiny volume [Entitic ">Mean Medical volume] by Corpuscular Center Automated count Volume </content>91.9 FL<content styleCode="Ital ics"> (80.0-100.0 FL)</content> Hemoglobin 13.5-17. Below low normal <content [facility] [Mass/volume] in 5 styleCode="Bold Destiny Blood ">Hemoglobin Medical </content>12.3 Center G/DL L<content styleCode="Ital ics"> (13.5-17.5 G/DL)</content> Hematocrit 41.0-53. Below low normal <content [facility] [Volume 0 styleCode="Bold Destiny Fraction] of ">Hematocrit Medical Blood by </content>38.4 Center Automated count % L<content styleCode="Ital ics"> (41.0-53.0 %)</content> Erythrocyte 11.5-14. Above high <content [facility] distribution 5 normal styleCode="Bold Destiny width [Ratio] by ">Red Cell Medical Automated count Distribution Center Width </content>18.7 % H<content styleCode="Ital ics"> (11.5-14.5 %)</content> Erythrocyte mean 26.0-34. <content [facility] corpuscular 0 styleCode="Bold Destiny hemoglobin ">Mean Medical [Entitic mass] Corposcular Center by Automated Hemoglobin count </content>29.4 PG<content styleCode="Ital ics"> (26.0-34.0 PG)</content> Erythrocyte mean 32.0-37. <content [facility] corpuscular 0 styleCode="Bold Destiny hemoglobin ">Mean Corpus. Medical concentration Hgb Center [Mass/volume] by Concentration Automated count (MCHC) </content>32.0 G/DL<content styleCode="Ital ics"> (32.0-37.0 G/DL)</content> Platelets 130-400 <content [facility] [#/volume] in styleCode="Bold Destiny Blood by ">Platelet Medical Automated count Count Center </content>206 KCUMM<content styleCode="Ital ics"> (130-400 KCUMM)</content > Neutrophils 36-66 <content [facility] [#/volume] in styleCode="Bold Destiny Blood by ">Neutrophil Medical Automated count </content>58.9 Center %<content styleCode="Ital ics"> (36-66 %)</content> Platelet mean 8.0-11.0 Above high <content [facility] volume [Entitic normal styleCode="Bold Destiny volume] in Blood ">Mean Platelet Medical by Automated Volume Center count </content>11.4 FL H<content styleCode="Ital ics"> (8.0-11.0 FL)</content> UNK 1.6-7.3 <content [facility] styleCode="Bold Destiny ">Neutrophil Medical Count Center </content>6.35 KCUMM<content styleCode="Ital ics"> (1.6-7.3 KCUMM)</content > Lymphocytes 24.0-44. <content [facility] [#/volume] in 0 styleCode="Bold Destiny Blood by ">Lymphocyte Medical Automated count </content>35.1 Center %<content styleCode="Ital ics"> (24.0-44.0 %)</content> UNK 1.0-4.8 <content [facility] styleCode="Bold Destiny ">Lymphocyte Medical Count Center </content>3.77 KCUMM<content styleCode="Ital ics"> (1.0-4.8 KCUMM)</content > UNK 0.2-0.9 <content [facility] styleCode="Bold Destiny ">Monocyte Medical Count Center </content>0.50 KCUMM<content styleCode="Ital ics"> (0.2-0.9 KCUMM)</content > Monocytes 3.0-10.0 <content [facility] [#/volume] in styleCode="Bold Destiny Blood by ">Monocyte Medical Automated count </content>4.7 Center %<content styleCode="Ital ics"> (3.0-10.0 %)</content> Eosinophils 0-5.0 <content [facility] [#/volume] in styleCode="Bold Destiny Blood by ">Eosinophil Medical Automated count </content>0.3 Center %<content styleCode="Ital ics"> (0-5.0 %)</content> UNK 0.0-0.6 <content [facility] styleCode="Bold Destiny ">Eosinophil Medical Count Center </content>0.03 KCUMM<content styleCode="Ital ics"> (0.0-0.6 KCUMM)</content > Basophils 0.0-1.0 <content [facility] [#/volume] in styleCode="Bold Destiny Blood by ">Basophil Medical Automated count </content>0.7 Center %<content styleCode="Ital ics"> (0.0-1.0 %)</content> UNK 0.0-0.3 <content [facility] styleCode="Bold Destiny ">Basophil Medical Count Center </content>0.07 KCUMM<content styleCode="Ital ics"> (0.0-0.3 KCUMM)</content > UNK 0 <content [facility] styleCode="Bold Destiny ">Nucleated Red Medical Blood Cell Center </content>0.0 /100<content styleCode="Ital ics"> (0 /100)</content> UNK 0.0 <content [facility] styleCode="Bold Destiny ">Nucleated Red Medical Blood Cell Center Count </content>0.00 KCUMM<content styleCode="Ital ics"> (0.0 KCUMM)</content > UNK < 1 <content [facility] styleCode="Bold Destiny ">Immature Medical Granulocyte Center Ratio </content>0.3 %<content styleCode="Ital ics"> (< 1 %)</content> UNK 0-0.1 <content [facility] styleCode="Bold [facility] ">Immature Medical Granulocyte Center Count </content>0.03 KCUMM<content styleCode="Ital ics"> (0-0.1 KCUMM)</content > ID Date Data Source GFR(Creatinine).[id number] 11/30/2019 07:05:00 PM EDT [facility] 0-0400 Name Value Range Interpretation Code Description Data Loyda rce(s) Supporting Document(s ) UNK <content [facility] styleCode="Bold"> Medical Cent er EGFR </content>Test not performed. GFR (Reference Range: not available)
ID Date Data Source Coagulation 11/30/2019 07:05:00 PM [facility] ical Center Rout.[id number] EDT Name Value Range Interpretation Description Data Sup porting Code Source(s) Document(s ) INR in 0.80-1.2 <content [facility] Platelet poor 0 styleCode="Bold" [facility] plasma by >INR Medical Coagulation </content>1.10 Center assay #<content styleCode="Itali cs"> (0.80-1.20 #)</content> UNK 9.0-13.0 <content [facility] styleCode="Bold" Destiny >Protime Medical </content>12.2 Center SEC<content styleCode="Itali cs"> (9.0-13.0 SEC)</content> aPTT in 25.1-36. <content [facility] Platelet poor 5 styleCode="Bold" [facility] plasma by >Partial Medical Coagulation Thromboplastin Center assay Time </content>29.9 SEC<content styleCode="Itali cs"> (25.1-36.5 SEC)</content> ID Date Data Source CHMROUTINECCDA.[id number] 11/30/2019 07:05:00 PM EDT [facility] -0400 Name Value Range Interpretation Description Data Sup porting Code Source(s) Document(s ) UNK <content [facility] styleCode="Bold Medical ">Amylase Center </content>Test not performed. IU/L (Reference Range: not available)
Lactate 0.7-2.0 Above upper panic <content [place] s [Mass/volum limits styleCode="Bold Medical e] in Serum ">Lactic Acid Center or Plasma </content><cont ent styleCode="Bold ">2.7 MMOLL HH</content><co ntent styleCode="Ital ics"> (0.7-2.0 MMOLL)</content > Lipase <content [place] [Enzymatic styleCode="Bold Medical activity/vo ">Lipase Center lume] in </content>Test Serum or not performed. Plasma IU/L (Reference Range: not available)
ID Date Data Source CardiacMarkers.[id number] 11/30/2019 07:05:00 PM EDT [facility] -0400 Name Value Range Interpretation Description Data Sup porting Code Source(s) Document(s ) Creatine <content [facility] kinase styleCode="Bold Medical [Enzymatic ">CK Center activity/vol </content>Test ume] in not performed. Serum or IU/L Plasma (Reference Range: not available)
Troponin <content [facility] I.cardiac styleCode="Bold Medical [Mass/volume ">Troponin I Center ] in Serum </content>Test or Plasma not performed. NG/ML (Reference Range: not available)
ID Date Data Source BMP.[id number] 11/30/2019 07:05:00 PM EDT [facility] Name Value Range Interpretation Description Data Sup porting Code Source(s) Document(s ) Potassium <content [facility] [Moles/volume] in styleCode="Bold"> Roni phs Serum or Plasma Potassium Medical </content>Test Center not performed. MEQ/L (Reference Range: not available)
Chloride <content [facility] [Moles/volume] in styleCode="Bold"> Roni phs Serum or Plasma Chloride Medical </content>Test Center not performed. MEQ/L (Reference Range: not available)
Sodium <content [facility] [Moles/volume] in styleCode="Bold"> Roni phs Serum or Plasma Sodium Medical </content>Test Center not performed. MEQ/L (Reference Range: not available)
Carbon dioxide, <content [facility] total styleCode="Bold"> [facility] [Moles/volume] in Carbon Dioxide Medical Serum or Plasma </content>Test Center not performed. MEQ/L (Reference Range: not available)
UNK <content [facility] styleCode="Bold"> [facility] BUN Medical </content>Test Center not performed. MG/DL (Reference Range: not available)
Creatinine <content [facility] [Mass/volume] in styleCode="Bold"> Adi hs Serum or Plasma Creatinine Medical </content>Test Center not performed. MG/DL (Reference Range: not available)
Calcium <content [facility] [Mass/volume] in styleCode="Bold"> Adi hs Serum or Plasma Calcium Medical </content>Test Center not performed. MG/DL (Reference Range: not available)
Glucose <content [facility] [Mass/volume] in styleCode="Bold"> Adi hs Serum or Plasma Glucose Medical </content>Test Center not performed. MG/DL (Reference Range: not available)
UNK <content [facility] styleCode="Bold"> [facility] EGFR Medical </content>Test Center not performed. GFR (Reference Range: not available)
Aspartate <content [facility] aminotransferase styleCode="Bold"> Adi hs [Enzymatic Aspartate Medical activity/volume] Aminotransferase Center in Serum or Plasma (AST) </content>Test not performed. IU/L (Reference Range: not available)
Alkaline <content [facility] phosphatase styleCode="Bold"> [facility] [Enzymatic Alkaline Medical activity/volume] Phosphatase (ALP) Cente r in Serum or Plasma </content>Test not performed. IU/L (Reference Range: not available)
Alanine <content [facility] aminotransferase styleCode="Bold"> Adi hs [Enzymatic Alanine Medical activity/volume] Aminotransferase Center in Serum or Plasma (ALT) </content>Test not performed. IU/L (Reference Range: not available)
Albumin <content [facility] [Mass/volume] in styleCode="Bold"> Adi hs Serum or Plasma Albumin Medical </content>Test Center not performed. G/DL (Reference Range: not available)
Bilirubin.total <content [facility] [Mass/volume] in styleCode="Bold"> Adi hs Serum or Plasma Bilirubin Total Medical </content>Test Center not performed. MG/DL (Reference Range: not available)
ID Date Data Source Liver 11/01/2019 09:45:00 AM EST [facility] Profile.[id number] Name Value Range Interpretation Description Data Sup porting Code Source(s) Document(s ) Aspartate 17-59 <content [facility] aminotransferase styleCode="Bold"> Adi hs [Enzymatic Aspartate Medical activity/volume] Aminotransferase Center in Serum or Plasma (AST) </content>56 IU/L<content styleCode="Italic s"> (17-59 IU/L)</content> Alkaline 38-126 <content [facility] phosphatase styleCode="Bold"> [place] [Enzymatic Alkaline Medical activity/volume] Phosphatase (ALP) Cente r in Serum or Plasma </content>92 IU/L<content styleCode="Italic s"> (38-126 IU/L)</content> Alanine 7-50 <content [facility] aminotransferase styleCode="Bold"> Adi hs [Enzymatic Alanine Medical activity/volume] Aminotransferase Center in Serum or Plasma (ALT) </content>24 IU/L<content styleCode="Italic s"> (7-50 IU/L)</content> Bilirubin.total 0.2-1.3 <content [facility] [Mass/volume] in styleCode="Bold"> Adi hs Serum or Plasma Bilirubin Total Medical </content>0.2 Center MG/DL<content styleCode="Italic s"> (0.2-1.3 MG/DL)</content> Albumin 3.5-5.0 <content [facility] [Mass/volume] in styleCode="Bold"> Adi hs Serum or Plasma Albumin Medical </content>3.6 Center G/DL<content styleCode="Italic s"> (3.5-5.0 G/DL)</content> UNK 0.0-0.3 <content [facility] styleCode="Bold"> [facility] Bilirubin, Direct Medical </content>< 0.2 Center MG/DL<content styleCode="Italic s"> (0.0-0.3 MG/DL)</content> ID Date Data Source HematologyRou.[id number] 11/01/2019 09:45:00 AM JEAN [facility] 0500 Name Value Range Interpretation Description Data Sup porting Code Source(s) Document(s ) Leukocytes 4.4-11.0 Above high <content [facility] [#/volume] in normal styleCode="Bold Destiny Blood by ">White Blood Medical Automated count Cell Count Center </content>12.78 KCUMM H<content styleCode="Ital ics"> (4.4-11.0 KCUMM)</content > Hemoglobin 13.5-17. Below low normal <content [facility] [Mass/volume] in 5 styleCode="Bold Destiny Blood ">Hemoglobin Medical </content>12.9 Center G/DL L<content styleCode="Ital ics"> (13.5-17.5 G/DL)</content> Hematocrit 41.0-53. Below low normal <content [facility] [Volume 0 styleCode="Bold [place]iny Fraction] of ">Hematocrit Medical Blood by </content>38.9 Center Automated count % L<content styleCode="Ital ics"> (41.0-53.0 %)</content> Erythrocytes 4.4-5.9 Below low normal <content [facility] [#/volume] in styleCode="Bold [place] Blood by ">Red Blood Medical Automated count Cell Count Center </content>4.24 MCUMM L<content styleCode="Ital ics"> (4.4-5.9 MCUMM)</content > Erythrocyte mean 80.0-100 <content [facility] corpuscular .0 styleCode="Bold Destiny volume [Entitic ">Mean Medical volume] by Corpuscular Center Automated count Volume </content>91.7 FL<content styleCode="Ital ics"> (80.0-100.0 FL)</content> Erythrocyte mean 26.0-34. <content [facility] corpuscular 0 styleCode="Bold [place] hemoglobin ">Mean Medical [Entitic mass] Corposcular Center by Automated Hemoglobin count </content>30.4 PG<content styleCode="Ital ics"> (26.0-34.0 PG)</content> Platelets 130-400 <content [facility] [#/volume] in styleCode="Bold [place] Blood by ">Platelet Medical Automated count Count Center </content>255 KCUMM<content styleCode="Ital ics"> (130-400 KCUMM)</content > Erythrocyte mean 32.0-37. <content [facility] corpuscular 0 styleCode="Bold [place] hemoglobin ">Mean Corpus. Medical concentration Hgb Center [Mass/volume] by Concentration Automated count (MCHC) </content>33.2 G/DL<content styleCode="Ital ics"> (32.0-37.0 G/DL)</content> Erythrocyte 11.5-14. Above high <content [facility] distribution 5 normal styleCode="Bold [place]iny width [Ratio] by ">Red Cell Medical Automated count Distribution Center Width </content>20.4 % H<content styleCode="Ital ics"> (11.5-14.5 %)</content> UNK 0.0 <content [facility] styleCode="Bold [place] ">Nucleated Red Medical Blood Cell Center Count </content>0.00 KCUMM<content styleCode="Ital ics"> (0.0 KCUMM)</content > Platelet mean 8.0-11.0 <content [facility] volume [Entitic styleCode="Bold [place]iny volume] in Blood ">Mean Platelet Medical by Automated Volume Center count </content>10.7 FL<content styleCode="Ital ics"> (8.0-11.0 FL)</content> UNK 0 <content [facility] styleCode="Bold [place] ">Nucleated Red Medical Blood Cell Center </content>0.0 /100<content styleCode="Ital ics"> (0 /100)</content> ID Date Data Source GFR(Creatinine).[id number] 11/01/2019 09:45:00 AM EST [facility] 0-0500 Name Value Range Interpretation Code Description Data Loyda rce(s) Supporting Document(s ) UNK > 60 Below low normal <content [facility] styleCode="Bold"> Medical Cent er EGFR </content>59 GFR L<content styleCode="Italic s"> (> 60 GFR)</content> ID Date Data Source BMP.[id number] 11/01/2019 09:45:00 AM EST [facility] Center Name Value Range Interpretation Description Data Sup porting Code Source(s) Document(s ) Carbon dioxide, 22-30 <content [facility] total styleCode="Bold"> [facility] [Moles/volume] in Carbon Dioxide Medical Serum or Plasma </content>30 Center MEQ/L<content styleCode="Italic s"> (22-30 MEQ/L)</content> Chloride 98-107 Above high <content [facility] [Moles/volume] in normal styleCode="Bold"> [facility] Serum or Plasma Chloride Medical </content>108 Center MEQ/L H<content styleCode="Italic s"> (98-107 MEQ/L)</content> Sodium 137-145 <content [facility] [Moles/volume] in styleCode="Bold"> Roni phs Serum or Plasma Sodium Medical </content>145 Center MEQ/L<content styleCode="Italic s"> (137-145 MEQ/L)</content> Potassium 3.5-5.3 <content [facility] [Moles/volume] in styleCode="Bold"> [facility]oni [facility] Serum or Plasma Potassium Medical </content>3.8 Center MEQ/L<content styleCode="Italic s"> (3.5-5.3 MEQ/L)</content> Calcium 8.4-10. <content [facility] [Mass/volume] in 2 styleCode="Bold"> Adi hs Serum or Plasma Calcium Medical </content>9.2 Center MG/DL<content styleCode="Italic s"> (8.4-10.2 MG/DL)</content> Creatinine 0.5-1.3 <content [facility] [Mass/volume] in styleCode="Bold"> Adi hs Serum or Plasma Creatinine Medical </content>1.3 Center MG/DL<content styleCode="Italic s"> (0.5-1.3 MG/DL)</content> UNK 9-20 <content [facility] styleCode="Bold"> [facility]iny BUN </content>19 Medical MG/DL<content Center styleCode="Italic s"> (9-20 MG/DL)</content> Glucose 74-106 Above high <content [facility] [Mass/volume] in normal styleCode="Bold"> Adi hs Serum or Plasma Glucose Medical </content>133 Center MG/DL H<content styleCode="Italic s"> (74-106 MG/DL)</content> Aspartate 17-59 <content [facility] aminotransferase styleCode="Bold"> Adi hs [Enzymatic Aspartate Medical activity/volume] Aminotransferase Center in Serum or Plasma (AST) </content>56 IU/L<content styleCode="Italic s"> (17-59 IU/L)</content> Alanine 7-50 <content [facility] aminotransferase styleCode="Bold"> Adi hs [Enzymatic Alanine Medical activity/volume] Aminotransferase Center in Serum or Plasma (ALT) </content>24 IU/L<content styleCode="Italic s"> (7-50 IU/L)</content> UNK > 60 Below low <content [facility] normal styleCode="Bold"> Destiny EGFR </content>59 Medical GFR L<content Center styleCode="Italic s"> (> 60 GFR)</content> Alkaline 38-126 <content [facility] phosphatase styleCode="Bold"> [facility] [Enzymatic Alkaline Medical activity/volume] Phosphatase (ALP) Cente r in Serum or Plasma </content>92 IU/L<content styleCode="Italic s"> (38-126 IU/L)</content> Bilirubin.total 0.2-1.3 <content [facility] [Mass/volume] in styleCode="Bold"> Adi hs Serum or Plasma Bilirubin Total Medical </content>0.2 Center MG/DL<content styleCode="Italic s"> (0.2-1.3 MG/DL)</content> Albumin 3.5-5.0 <content [facility] [Mass/volume] in styleCode="Bold"> Adi hs Serum or Plasma Albumin Medical </content>3.6 Center G/DL<content styleCode="Italic s"> (3.5-5.0 G/DL)</content> ID Date Data Source Urinalysis.[id number] 08/31/2019 12:00:00 AM JEAN [facility] 0 Name Value Range Interpretation Description Data Sup porting Code Source(s) Document(s ) UNK CLEAR <content [facility] styleCode="Kirstin Destiny d">Urine Medical Clarity Center </content>MACARIO R <content styleCode="Jody lics"> (CLEAR )</content> Color of Urine YELLOW <content [facility] styleCode="Kirstin Destiny d">Color, Medical Urine Center </content>YELL OW <content styleCode="Jody lics"> (YELLOW )</content> Glucose NEGATIVE <content [facility] [Mass/volume] styleCode="Kirstin [place]iny in Urine by d">Urine Medical Test strip Glucose Center </content>NEGA TIVE MG/DL<content styleCode="Jody lics"> (NEGATIVE MG/DL)</conten t> UNK NEGATIVE <content Saint styleCode="Kirstin Destiny d">Urine Medical Bilirubin Center </content>NEGA TIVE <content styleCode="Jody lics"> (NEGATIVE )</content> Ketones NEGATIVE <content [facility] [Mass/volume] styleCode="Kirstin [place]iny in Urine by d">Urine Medical Test strip Ketone Center </content>NEGA TIVE MG/DL<content styleCode="Jody lics"> (NEGATIVE MG/DL)</conten t> Specific 1.015-1.02 Below low normal <content [facility] gravity of 5 styleCode="Kirstin Destiny Urine by Test d">Urine Medical strip Specific Center [place] </content><= 1.005 L<content styleCode="Jody lics"> (1.015-1.025 )</content> Hemoglobin NEGATIVE <content [facility] [Presence] in styleCode="Kirstin Destiny Urine by Test d">Urine Blood Medical strip </content>NEGA Center TIVE <content styleCode="Jody lics"> (NEGATIVE )</content> pH of Urine by 4.5-8.0 <content [facility] Test strip styleCode="Kirstin Destiny d">Urine pH Medical </content>6.0 Center <content styleCode="Jody lics"> (4.5-8.0 )</content> Protein NEGATIVE <content [facility] [Mass/volume] styleCode="Kirstin [place]iny in Urine by d">Urine Medical Test strip Protein Center </content>NEGA TIVE MG/DL<content styleCode="Jody lics"> (NEGATIVE MG/DL)</conten t> Urobilinogen 0.2-1.0 <content [facility] [Units/volume] styleCode="Kirstin Destiny in Urine by d">Urine Medical Test strip Urobilinogen Center </content>0.2 MG/DL<content styleCode="Jody lics"> (0.2-1.0 MG/DL)</conten t> Nitrite NEGATIVE <content [facility] [Presence] in styleCode="Kirstin Destiny Urine by Test d">Urine Medical strip Nitrite Center </content>NEGA TIVE <content styleCode="Jody lics"> (NEGATIVE )</content> Leukocyte NEGATIVE <content [facility] esterase styleCode="Kirstin Destiny [Presence] in d">Urine Medical Urine by Test Leukocyte Center strip </content>NEGA TIVE <content styleCode="Jody lics"> (NEGATIVE )</content> ID Date Data Source MARY.[id number] 08/31/2019 12:00:00 AM JEAN gould [facility] -0500 Name Value Range Interpretation Description Data Sup porting Code Source(s) Document(s ) Cannabinoids <content [facility] [Presence] in styleCode="Kirstin [facility] Urine by Screen d">Cannabinoid Medical method >50 ng/mL s Center </content>NEGA TIVE NG/ML (Reference Range: not available)<br/ > ID Date Data Source Liver 08/30/2019 06:59:00 PM EST [facility] Profile.[id number] Name Value Range Interpretation Description Data Sup porting Code Source(s) Document(s ) Aspartate 17-59 <content [facility] aminotransferase styleCode="Bold"> Adi hs [Enzymatic Aspartate Medical activity/volume] Aminotransferase Center in Serum or Plasma (AST) </content>50 IU/L<content styleCode="Italic s"> (17-59 IU/L)</content> Alanine 7-50 <content [facility] aminotransferase styleCode="Bold"> Adi hs [Enzymatic Alanine Medical activity/volume] Aminotransferase Center in Serum or Plasma (ALT) </content>22 IU/L<content styleCode="Italic s"> (7-50 IU/L)</content> Bilirubin.total 0.2-1.3 <content [facility] [Mass/volume] in styleCode="Bold"> Adi hs Serum or Plasma Bilirubin Total Medical </content>0.2 Center MG/DL<content styleCode="Italic s"> (0.2-1.3 MG/DL)</content> Alkaline 38-126 <content [facility] phosphatase styleCode="Bold"> Destiny [Enzymatic Alkaline Medical activity/volume] Phosphatase (ALP) Cente r in Serum or Plasma </content>64 IU/L<content styleCode="Italic s"> (38-126 IU/L)</content> UNK 0.0-0.3 <content Saint styleCode="Bold"> [facility] Bilirubin, Direct Medical </content>< 0.2 Center MG/DL<content styleCode="Italic s"> (0.0-0.3 MG/DL)</content> Albumin 3.5-5.0 <content [facility] [Mass/volume] in styleCode="Bold"> Adi hs Serum or Plasma Albumin Medical </content>4.1 Center G/DL<content styleCode="Italic s"> (3.5-5.0 G/DL)</content> ID Date Data Source HematologyRou.[id number] 08/30/2019 06:59:00 PM JEAN [facility] 0500 Name Value Range Interpretation Description Data Sup porting Code Source(s) Document(s ) Leukocytes 4.4-11.0 <content Saint [#/volume] in styleCode="Bold [place] Blood by ">White Blood Medical Automated count Cell Count Center </content>10.88 KCUMM<content styleCode="Ital ics"> (4.4-11.0 KCUMM)</content > Hematocrit 41.0-53. <content Saint [Volume 0 styleCode="Bold [facility] Fraction] of ">Hematocrit Medical Blood by </content>41.4 Center Automated count %<content styleCode="Ital ics"> (41.0-53.0 %)</content> Hemoglobin 13.5-17. <content Saint [Mass/volume] in 5 styleCode="Bold Destiny Blood ">Hemoglobin Medical </content>14.0 Center G/DL<content styleCode="Ital ics"> (13.5-17.5 G/DL)</content> Erythrocytes 4.4-5.9 Below low normal <content Saint [#/volume] in styleCode="Bold [place] Blood by ">Red Blood Medical Automated count Cell Count Center </content>4.33 MCUMM L<content styleCode="Ital ics"> (4.4-5.9 MCUMM)</content > Erythrocyte mean 26.0-34. <content [facility] corpuscular 0 styleCode="Bold Destiny hemoglobin ">Mean Medical [Entitic mass] Corposcular Center by Automated Hemoglobin count </content>32.3 PG<content styleCode="Ital ics"> (26.0-34.0 PG)</content> Erythrocyte mean 32.0-37. <content [facility] corpuscular 0 styleCode="Bold Destiny hemoglobin ">Mean Corpus. Medical concentration Hgb Center [Mass/volume] by Concentration Automated count (MCHC) </content>33.8 G/DL<content styleCode="Ital ics"> (32.0-37.0 G/DL)</content> Erythrocyte mean 80.0-100 <content [facility] corpuscular .0 styleCode="Bold Destiny volume [Entitic ">Mean Medical volume] by Corpuscular Center Automated count Volume </content>95.6 FL<content styleCode="Ital ics"> (80.0-100.0 FL)</content> Platelet mean 8.0-11.0 <content Saint volume [Entitic styleCode="Bold Destiny volume] in Blood ">Mean Platelet Medical by Automated Volume Center count </content>10.3 FL<content styleCode="Ital ics"> (8.0-11.0 FL)</content> Platelets 130-400 <content Saint [#/volume] in styleCode="Bold [place] Blood by ">Platelet Medical Automated count Count Center </content>371 KCUMM<content styleCode="Ital ics"> (130-400 KCUMM)</content > Erythrocyte 11.5-14. Above high <content [facility] distribution 5 normal styleCode="Bold [place]iny width [Ratio] by ">Red Cell Medical Automated count Distribution Center Width </content>18.4 % H<content styleCode="Ital ics"> (11.5-14.5 %)</content> UNK 0.0 <content Saint styleCode="Bold [place]iny ">Nucleated Red Medical Blood Cell Center Count </content>0.00 KCUMM<content styleCode="Ital ics"> (0.0 KCUMM)</content > UNK 0 <content Saint styleCode="Bold Destiny ">Nucleated Red Medical Blood Cell Center </content>0.0 /100<content styleCode="Ital ics"> (0 /100)</content> ID Date Data Source GFR(Creatinine).[id number] 08/30/2019 06:59:00 PM EST [facility] 0-0500 Name Value Range Interpretation Code Description Data Loyda rce(s) Supporting Document(s ) UNK > 60 <content [facility] styleCode="Bold"> Medical Cent er EGFR </content>86 GFR<content styleCode="Italic s"> (> 60 GFR)</content> ID Date Data Source [facility].[id number] 08/30/2019 06:59:00 PM EST [facility] Center Name Value Range Interpretation Description Data Sup porting Code Source(s) Document(s ) Carbon dioxide, 22-30 <content Saint total styleCode="Bold"> Destiny [Moles/volume] in Carbon Dioxide Medical Serum or Plasma </content>28 Center MEQ/L<content styleCode="Italic s"> (22-30 MEQ/L)</content> Potassium 3.5-5.3 <content Saint [Moles/volume] in styleCode="Bold"> Roni phs Serum or Plasma Potassium Medical </content>4.3 Center MEQ/L<content styleCode="Italic s"> (3.5-5.3 MEQ/L)</content> Chloride 98-107 <content Saint [Moles/volume] in styleCode="Bold"> Roni phs Serum or Plasma Chloride Medical </content>105 Center MEQ/L<content styleCode="Italic s"> (98-107 MEQ/L)</content> Sodium 137-145 <content Saint [Moles/volume] in styleCode="Bold"> Roni phs Serum or Plasma Sodium Medical </content>143 Center MEQ/L<content styleCode="Italic s"> (137-145 MEQ/L)</content> UNK 9-20 <content Saint styleCode="Bold"> Destiny BUN </content>17 Medical MG/DL<content Center styleCode="Italic s"> (9-20 MG/DL)</content> Glucose 74-106 <content Saint [Mass/volume] in styleCode="Bold"> Adi hs Serum or Plasma Glucose Medical </content>90 Center MG/DL<content styleCode="Italic s"> (74-106 MG/DL)</content> Creatinine 0.5-1.3 <content Saint [Mass/volume] in styleCode="Bold"> Adi hs Serum or Plasma Creatinine Medical </content>1.1 Center MG/DL<content styleCode="Italic s"> (0.5-1.3 MG/DL)</content> Calcium 8.4-10. <content Saint [Mass/volume] in 2 styleCode="Bold"> Adi hs Serum or Plasma Calcium Medical </content>9.5 Center MG/DL<content styleCode="Italic s"> (8.4-10.2 MG/DL)</content> Alanine 7-50 <content Saint aminotransferase styleCode="Bold"> Adi hs [Enzymatic Alanine Medical activity/volume] Aminotransferase Center in Serum or Plasma (ALT) </content>22 IU/L<content styleCode="Italic s"> (7-50 IU/L)</content> UNK > 60 <content Saint styleCode="Bold"> Destiny EGFR </content>86 Medical GFR<content Center styleCode="Italic s"> (> 60 GFR)</content> Aspartate 17-59 <content Saint aminotransferase styleCode="Bold"> Adi hs [Enzymatic Aspartate Medical activity/volume] Aminotransferase Center in Serum or Plasma (AST) </content>50 IU/L<content styleCode="Italic s"> (17-59 IU/L)</content> Albumin 3.5-5.0 <content Saint [Mass/volume] in styleCode="Bold"> Adi hs Serum or Plasma Albumin Medical </content>4.1 Center G/DL<content styleCode="Italic s"> (3.5-5.0 G/DL)</content> Alkaline 38-126 <content Saint phosphatase styleCode="Bold"> Destiny [Enzymatic Alkaline Medical activity/volume] Phosphatase (ALP) Cente r in Serum or Plasma </content>64 IU/L<content styleCode="Italic s"> (38-126 IU/L)</content> Bilirubin.total 0.2-1.3 <content Saint [Mass/volume] in styleCode="Bold"> Adi hs Serum or Plasma Bilirubin Total Medical </content>0.2 Center MG/DL<content styleCode="Italic s"> (0.2-1.3 MG/DL)</content> ID Date Data Source Coagulation 08/28/2019 02:20:00 PM [facility] Rout.[id number] EST Name Value Range Interpretation Description Data Sup porting Code Source(s) Document(s ) UNK 9.0-13.0 <content Saint styleCode="Bold" Destiny >Protime Medical </content>11.4 Center SEC<content styleCode="Itali cs"> (9.0-13.0 SEC)</content> INR in 0.80-1.2 <content [facility] Platelet poor 0 styleCode="Bold" [facility] plasma by >INR Medical Coagulation </content>1.03 Center assay #<content styleCode="Itali cs"> (0.80-1.20 #)</content> aPTT in 25.1-36. Below low normal <content [facility] Platelet poor 5 styleCode="Bold" [facility] plasma by >Partial Medical Coagulation Thromboplastin Center assay Time </content>23.8 SEC L<content styleCode="Itali cs"> (25.1-36.5 SEC)</content> ID Date Data Source [id number] 08/28/[facility] 02:20:00 PM EST [facility] -0500 Name Value Range Interpretation Description Data Sup porting Code Source(s) Document(s ) Natriuretic < 125 Above high normal <content [facility] peptide.B styleCode="Kirstin Destiny prohormone d">NT Pro BNP Medical N-Terminal </content>373 Center [Mass/volume] PG/ML in Serum or H<content Plasma styleCode="Jody lics"> (< 125 PG/ML)</conten t> ID Date Data Source [employer].[id number] 08/28/2019 02:20:00 PM EST [facility] -0500 Name Value Range Interpretation Description Data Sup porting Code Source(s) Document(s ) Creatine 55-170 Below low normal <content [facility] kinase styleCode="Bold [facility] [Enzymatic ">CK Medical activity/vol </content>47 Center ume] in IU/L L<content Serum or styleCode="Ital Plasma ics"> (55-170 IU/L)</content> Troponin < 0.034 <content [facility] I.cardiac styleCode="Bold Destiny [Mass/volume ">Troponin I Medical ] in Serum </content>0.024 Center or Plasma NG/ML<content styleCode="Ital ics"> (< 0.034 NG/ML)</content > ID Date Data Source Liver 08/28/2019 02:20:00 PM EST [facility] Profile.[id number] Name Value Range Interpretation Description Data Sup porting Code Source(s) Document(s ) Aspartate 17-59 <content [facility] aminotransferase styleCode="Bold"> Adi hs [Enzymatic Aspartate Medical activity/volume] Aminotransferase Center in Serum or Plasma (AST) </content>36 IU/L<content styleCode="Italic s"> (17-59 IU/L)</content> Alanine 7-50 <content [facility] aminotransferase styleCode="Bold"> Adi hs [Enzymatic Alanine Medical activity/volume] Aminotransferase Center in Serum or Plasma (ALT) </content>16 IU/L<content styleCode="Italic s"> (7-50 IU/L)</content> Alkaline 38-126 <content [facility] phosphatase styleCode="Bold"> Destiny [Enzymatic Alkaline Medical activity/volume] Phosphatase (ALP) Cente r in Serum or Plasma </content>69 IU/L<content styleCode="Italic s"> (38-126 IU/L)</content> Bilirubin.total 0.2-1.3 Below low <content [facility] [Mass/volume] in normal styleCode="Bold"> Adi hs Serum or Plasma Bilirubin Total Medical </content>< 0.2 Center MG/DL L<content styleCode="Italic s"> (0.2-1.3 MG/DL)</content> UNK 0.0-0.3 <content Saint styleCode="Bold"> Destiny Bilirubin, Direct Medical </content>< 0.2 Center MG/DL<content styleCode="Italic s"> (0.0-0.3 MG/DL)</content> Albumin 3.5-5.0 <content [facility] [Mass/volume] in styleCode="Bold"> Adi hs Serum or Plasma Albumin Medical </content>3.7 Center G/DL<content styleCode="Italic s"> (3.5-5.0 G/DL)</content> ID Date Data Source HematologyRou.[id number] 08/28/2019 02:20:00 PM [facility] 0500 Name Value Range Interpretation Description Data Sup porting Code Source(s) Document(s ) Erythrocytes 4.4-5.9 Below low normal <content [facility] [#/volume] in styleCode="Bold Destiny Blood by ">Red Blood Medical Automated count Cell Count Center </content>4.04 MCUMM L<content styleCode="Ital ics"> (4.4-5.9 MCUMM)</content > Leukocytes 4.4-11.0 <content [facility] [#/volume] in styleCode="Bold Destiny Blood by ">White Blood Medical Automated count Cell Count Center </content>7.14 KCUMM<content styleCode="Ital ics"> (4.4-11.0 KCUMM)</content > Hemoglobin 13.5-17. Below low normal <content [facility] [Mass/volume] in 5 styleCode="Bold Destiny Blood ">Hemoglobin Medical </content>13.1 Center G/DL L<content styleCode="Ital ics"> (13.5-17.5 G/DL)</content> Erythrocyte mean 80.0-100 <content [facility] corpuscular .0 styleCode="Bold Destiny volume [Entitic ">Mean Medical volume] by Corpuscular Center Automated count Volume </content>99.5 FL<content styleCode="Ital ics"> (80.0-100.0 FL)</content> Hematocrit 41.0-53. Below low normal <content [facility] [Volume 0 styleCode="Bold Destiny Fraction] of ">Hematocrit Medical Blood by </content>40.2 Center Automated count % L<content styleCode="Ital ics"> (41.0-53.0 %)</content> Erythrocyte mean 26.0-34. <content [facility] corpuscular 0 styleCode="Bold Destiny hemoglobin ">Mean Medical [Entitic mass] Corposcular Center by Automated Hemoglobin count </content>32.4 PG<content styleCode="Ital ics"> (26.0-34.0 PG)</content> Erythrocyte 11.5-14. Above high <content [facility] distribution 5 normal styleCode="Bold Detsiny width [Ratio] by ">Red Cell Medical Automated count Distribution Center Width </content>18.6 % H<content styleCode="Ital ics"> (11.5-14.5 %)</content> Erythrocyte mean 32.0-37. <content [facility] corpuscular 0 styleCode="Bold Destiny hemoglobin ">Mean Corpus. Medical concentration Hgb Center [Mass/volume] by Concentration Automated count (MCHC) </content>32.6 G/DL<content styleCode="Ital ics"> (32.0-37.0 G/DL)</content> Platelets 130-400 <content [facility] [#/volume] in styleCode="Bold Destiny Blood by ">Platelet Medical Automated count Count Center </content>360 KCUMM<content styleCode="Ital ics"> (130-400 KCUMM)</content > UNK 0.0 <content Saint styleCode="Bold Destiny ">Nucleated Red Medical Blood Cell Center Count </content>0.00 KCUMM<content styleCode="Ital ics"> (0.0 KCUMM)</content > Platelet mean 8.0-11.0 <content [facility] volume [Entitic styleCode="Bold Destiny volume] in Blood ">Mean Platelet Medical by Automated Volume Center count </content>9.9 FL<content styleCode="Ital ics"> (8.0-11.0 FL)</content> UNK 0 <content Saint styleCode="Bold Destiny ">Nucleated Red Medical Blood Cell Center </content>0.0 /100<content styleCode="Ital ics"> (0 /100)</content> ID Date Data Source GFR(Creatinine).[id number] 08/28/2019 02:20:00 PM EST [facility] 0-0500 Name Value Range Interpretation Code Description Data Loyda rce(s) Supporting Document(s ) UNK > 60 <content [facility] styleCode="Bold"> Medical Cent er EGFR </content>96 GFR<content styleCode="Italic s"> (> 60 GFR)</content> ID Date Data Source [facility].[id number] 08/28/2019 02:20:00 PM [facility] Name Value Range Interpretation Description Data Sup porting Code Source(s) Document(s ) Potassium 3.5-5.3 <content [facility] [Moles/volume] in styleCode="Bold"> [facility] Serum or Plasma Potassium Medical </content>4.2 Center MEQ/L<content styleCode="Italic s"> (3.5-5.3 MEQ/L)</content> Sodium 137-145 Above high <content [facility] [Moles/volume] in normal styleCode="Bold"> [facility] Serum or Plasma Sodium Medical </content>146 Center MEQ/L H<content styleCode="Italic s"> (137-145 MEQ/L)</content> Carbon dioxide, 22-30 <content [facility] total styleCode="Bold"> Destiny [Moles/volume] in Carbon Dioxide Medical Serum or Plasma </content>25 Center MEQ/L<content styleCode="Italic s"> (22-30 MEQ/L)</content> Chloride 98-107 Above high <content [facility] [Moles/volume] in normal styleCode="Bold"> [facility] Serum or Plasma Chloride Medical </content>112 Center MEQ/L H<content styleCode="Italic s"> (98-107 MEQ/L)</content> Glucose 74-106 <content [facility] [Mass/volume] in styleCode="Bold"> Adi hs Serum or Plasma Glucose Medical </content>95 Center MG/DL<content styleCode="Italic s"> (74-106 MG/DL)</content> Creatinine 0.5-1.3 <content [facility] [Mass/volume] in styleCode="Bold"> Adi hs Serum or Plasma Creatinine Medical </content>1.0 Center MG/DL<content styleCode="Italic s"> (0.5-1.3 MG/DL)</content> UNK 9-20 <content [facility] styleCode="Bold"> Destiny BUN </content>18 Medical MG/DL<content Center styleCode="Italic s"> (9-20 MG/DL)</content> Calcium 8.4-10. <content [facility] [Mass/volume] in 2 styleCode="Bold"> Adi hs Serum or Plasma Calcium Medical </content>9.4 Center MG/DL<content styleCode="Italic s"> (8.4-10.2 MG/DL)</content> UNK > 60 <content [facility] styleCode="Bold"> Destiny EGFR </content>96 Medical GFR<content Center styleCode="Italic s"> (> 60 GFR)</content> Aspartate 17-59 <content [facility] aminotransferase styleCode="Bold"> Adi hs [Enzymatic Aspartate Medical activity/volume] Aminotransferase Center in Serum or Plasma (AST) </content>36 IU/L<content styleCode="Italic s"> (17-59 IU/L)</content> Alanine 7-50 <content [facility] aminotransferase styleCode="Bold"> Adi hs [Enzymatic Alanine Medical activity/volume] Aminotransferase Center in Serum or Plasma (ALT) </content>16 IU/L<content styleCode="Italic s"> (7-50 IU/L)</content> Albumin 3.5-5.0 <content [facility] [Mass/volume] in styleCode="Bold"> Adi hs Serum or Plasma Albumin Medical </content>3.7 Center G/DL<content styleCode="Italic s"> (3.5-5.0 G/DL)</content> Alkaline 38-126 <content [facility] phosphatase styleCode="Bold"> Destiny [Enzymatic Alkaline Medical activity/volume] Phosphatase (ALP) Cente r in Serum or Plasma </content>69 IU/L<content styleCode="Italic s"> (38-126 IU/L)</content> Bilirubin.total 0.2-1.3 Below low <content [facility] [Mass/volume] in normal styleCode="Bold"> Adi hs Serum or Plasma Bilirubin Total Medical </content>< 0.2 Center MG/DL L<content styleCode="Italic s"> (0.2-1.3 MG/DL)</content> ID Date Data Source HematologyRou.[id number] 08/06/2019 02:30:00 AM [facility] 0500 Name Value Range Interpretation Description Data Sup porting Code Source(s) Document(s ) Erythrocytes 4.4-5.9 Below low normal <content [facility] [#/volume] in styleCode="Bold Destiny Blood by ">Red Blood Medical Automated count Cell Count Center </content>3.87 MCUMM L<content styleCode="Ital ics"> (4.4-5.9 MCUMM)</content > Leukocytes 4.4-11.0 <content [facility] [#/volume] in styleCode="Bold Destiny Blood by ">White Blood Medical Automated count Cell Count Center </content>6.90 KCUMM<content styleCode="Ital ics"> (4.4-11.0 KCUMM)</content > Erythrocyte mean 80.0-100 <content [facility] corpuscular .0 styleCode="Bold Destiny volume [Entitic ">Mean Medical volume] by Corpuscular Center Automated count Volume </content>95.9 FL<content styleCode="Ital ics"> (80.0-100.0 FL)</content> Hematocrit 41.0-53. Below low normal <content [facility] [Volume 0 styleCode="Bold Destiny Fraction] of ">Hematocrit Medical Blood by </content>37.1 Center Automated count % L<content styleCode="Ital ics"> (41.0-53.0 %)</content> Hemoglobin 13.5-17. Below low normal <content [facility] [Mass/volume] in 5 styleCode="Bold Destiny Blood ">Hemoglobin Medical </content>12.6 Center G/DL L<content styleCode="Ital ics"> (13.5-17.5 G/DL)</content> Erythrocyte 11.5-14. Above high <content [facility] distribution 5 normal styleCode="Bold Destiny width [Ratio] by ">Red Cell Medical Automated count Distribution Center Width </content>17.9 % H<content styleCode="Ital ics"> (11.5-14.5 %)</content> Erythrocyte mean 26.0-34. <content [facility] corpuscular 0 styleCode="Bold Destiny hemoglobin ">Mean Medical [Entitic mass] Corposcular Center by Automated Hemoglobin count </content>32.6 PG<content styleCode="Ital ics"> (26.0-34.0 PG)</content> Erythrocyte mean 32.0-37. <content [facility] corpuscular 0 styleCode="Bold Destiny hemoglobin ">Mean Corpus. Medical concentration Hgb Center [Mass/volume] by Concentration Automated count (MCHC) </content>34.0 G/DL<content styleCode="Ital ics"> (32.0-37.0 G/DL)</content> UNK 0 <content [facility] styleCode="Bold Destiny ">Nucleated Red Medical Blood Cell Center </content>0.0 /100<content styleCode="Ital ics"> (0 /100)</content> Platelets 130-400 <content [facility] [#/volume] in styleCode="Bold Destiny Blood by ">Platelet Medical Automated count Count Center </content>134 KCUMM<content styleCode="Ital ics"> (130-400 KCUMM)</content > UNK 0.0 <content [facility] styleCode="Bold Destiny ">Nucleated Red Medical Blood Cell Center Count </content>0.00 KCUMM<content styleCode="Ital ics"> (0.0 KCUMM)</content > ID Date Data Source GFR(Creatinine).[id number] 08/06/2019 02:30:00 AM EST [facility] 0-0500 Name Value Range Interpretation Code Description Data Loyda rce(s) Supporting Document(s ) UNK > 60 <content [facility] styleCode="Bold"> Medical Cent er EGFR </content>96 GFR<content styleCode="Italic s"> (> 60 GFR)</content> ID Date Data Source [facility].[id number] 08/06/2019 02:30:00 AM EST [facility] Name Value Range Interpretation Description Data Sup porting Code Source(s) Document(s ) Potassium 3.5-5.3 <content [facility] [Moles/volume] styleCode="Kirstin Destiny in Serum or d">Potassium Medical Plasma </content>4.3 Center MEQ/L<content styleCode="Jody lics"> (3.5-5.3 MEQ/L)</conten t> Sodium 137-145 <content [facility] [Moles/volume] styleCode="Kirstin Destiny in Serum or d">Sodium Medical Plasma </content>143 Center MEQ/L<content styleCode="Jody lics"> (137-145 MEQ/L)</conten t> Chloride 98-107 <content [facility] [Moles/volume] styleCode="Kirstin Destiny in Serum or d">Chloride Medical Plasma </content>104 Center MEQ/L<content styleCode="Jody lics"> (98-107 MEQ/L)</conten t> UNK 9-20 <content [facility] styleCode="Kirstin Destiny d">BUN Medical </content>15 Center MG/DL<content styleCode="Jody lics"> (9-20 MG/DL)</conten t> Carbon 22-30 Above high normal <content [facility] dioxide, total styleCode="Kirstin Destiny [Moles/volume] d">Carbon Medical in Serum or Dioxide Center Plasma </content>33 MEQ/L H<content styleCode="Jody lics"> (22-30 MEQ/L)</conten t> Creatinine 0.5-1.3 <content [facility] [Mass/volume] styleCode="Kirstin Destiny in Serum or d">Creatinine Medical Plasma </content>1.0 Center MG/DL<content styleCode="Jody lics"> (0.5-1.3 MG/DL)</conten t> Glucose 74-106 <content [facility] [Mass/volume] styleCode="Kirstin Destiny in Serum or d">Glucose Medical Plasma </content>94 Center MG/DL<content styleCode="Jody lics"> (74-106 MG/DL)</conten t> UNK > 60 <content [facility] styleCode="Kirstin Destiny d">EGFR Medical </content>96 Center GFR<content styleCode="Jody lics"> (> 60 GFR)</content> Calcium 8.4-10.2 <content [facility] [Mass/volume] styleCode="Kirstin Destiny in Serum or d">Calcium Medical Plasma </content>8.8 Center MG/DL<content styleCode="Jody lics"> (8.4-10.2 MG/DL)</conten t> ID Date Data Source LIPID.[id number] 02/13/2019 01:40:[address] [facility] Name Value Range Interpretation Description Data Sup porting Code Source(s) Document(s ) Triglyceride < 150 Above high normal <content [facility] [Mass/volume] styleCode="Bold"> Destiny in Serum or Triglycerides Medical Plasma </content>256 Center MG/DL H<content styleCode="Italic s"> (< 150 MG/DL)</content> UNK <content Saint styleCode="Bold"> Destiny LDL-Cholesterol Medical </content> Center (Reference Range: not available)
<c ontent styleCode="xLocal PreformattedText" >Triglycerides are >250 mg/dl; therefore, the LDL calculation is invalid.
Chol esterol electrophoresis is recommended if medically appropriate.</con tent> UNK > 60 <content [facility] styleCode="Bold"> Destiny HDL- Cholesterol Medical </content>90 Center MG/DL<content styleCode="Italic s"> (> 60 MG/DL)</content> Cholesterol -<200 <content [facility] [Mass/volume] styleCode="Bold"> Destiny in Serum or Cholesterol Medical Plasma </content>120 Center MG/DL<content styleCode="Italic s"> (-<200 MG/DL)</content> ID Date Data Source HematologyRou.[id number] 02/13/2019 01:40:00 AM EDT [facility] 0400 Name Value Range Interpretation Description Data Sup porting Code Source(s) Document(s ) Leukocytes 4.4-11.0 <content [facility] [#/volume] in styleCode="Bold Destiny Blood by ">White Blood Medical Automated count Cell Count Center </content>8.35 KCUMM<content styleCode="Ital ics"> (4.4-11.0 KCUMM)</content > Erythrocytes 4.4-5.9 Below low normal <content [facility] [#/volume] in styleCode="Bold Destiny Blood by ">Red Blood Medical Automated count Cell Count Center </content>3.87 MCUMM L<content styleCode="Ital ics"> (4.4-5.9 MCUMM)</content > Hemoglobin 13.5-17. Below low normal <content [facility] [Mass/volume] in 5 styleCode="Bold Destiny Blood ">Hemoglobin Medical </content>11.8 Center G/DL L<content styleCode="Ital ics"> (13.5-17.5 G/DL)</content> Hematocrit 41.0-53. Below low normal <content [facility] [Volume 0 styleCode="Bold Destiny Fraction] of ">Hematocrit Medical Blood by </content>34.9 Center Automated count % L<content styleCode="Ital ics"> (41.0-53.0 %)</content> Erythrocyte mean 80.0-100 <content [facility] corpuscular .0 styleCode="Bold Destiny volume [Entitic ">Mean Medical volume] by Corpuscular Center Automated count Volume </content>90.2 FL<content styleCode="Ital ics"> (80.0-100.0 FL)</content> Erythrocyte mean 26.0-34. <content [facility] corpuscular 0 styleCode="Bold Destiny hemoglobin ">Mean Medical [Entitic mass] Corposcular Center by Automated Hemoglobin count </content>30.5 PG<content styleCode="Ital ics"> (26.0-34.0 PG)</content> Erythrocyte 11.5-14. Above high <content [facility] distribution 5 normal styleCode="Bold Destiny width [Ratio] by ">Red Cell Medical Automated count Distribution Center Width </content>17.2 % H<content styleCode="Ital ics"> (11.5-14.5 %)</content> Erythrocyte mean 32.0-37. <content [facility] corpuscular 0 styleCode="Bold Destiny hemoglobin ">Mean Corpus. Medical concentration Hgb Center [Mass/volume] by Concentration Automated count (MCHC) </content>33.8 G/DL<content styleCode="Ital ics"> (32.0-37.0 G/DL)</content> Platelet mean 8.0-11.0 <content [facility] volume [Entitic styleCode="Bold Destiny volume] in Blood ">Mean Platelet Medical by Automated Volume Center count </content>10.1 FL<content styleCode="Ital ics"> (8.0-11.0 FL)</content> UNK 0 <content [facility] styleCode="Bold Destiny ">Nucleated Red Medical Blood Cell Center </content>0.0 /100<content styleCode="Ital ics"> (0 /100)</content> Platelets 130-400 <content [facility] [#/volume] in styleCode="Bold Destiny Blood by ">Platelet Medical Automated count Count Center </content>161 KCUMM<content styleCode="Ital ics"> (130-400 KCUMM)</content > UNK 0.0 <content [facility] styleCode="Bold Destiny ">Nucleated Red Medical Blood Cell Center Count </content>0.00 KCUMM<content styleCode="Ital ics"> (0.0 KCUMM)</content > ID Date Data Source GFR(Creatinine).[id number] 02/13/2019 01:40:00 AM EDT [facility] 0-0400 Name Value Range Interpretation Code Description Data Loyda rce(s) Supporting Document(s ) UNK > 60 <content [facility] styleCode="Bold"> Medical Cent er EGFR </content>96 GFR<content styleCode="Italic s"> (> 60 GFR)</content> ID Date Data Source [employer].[id number] 02/13/2019 01:40:00 AM EDT [facility] -0400 Name Value Range Interpretation Description Data Sup porting Code Source(s) Document(s ) Troponin < 0.034 Above upper panic <content [facility] I.cardiac limits styleCode="Bold Destiny [Mass/volume ">Troponin I Medical ] in Serum </content><cont Center or Plasma ent styleCode="Bold ">0.104 NG/ML HH</content><co ntent styleCode="Ital ics"> (< 0.034 NG/ML)</content > ID Date Data Source [facility].[id number] 02/13/2019 01:40:00 AM EDT [facility] Center Name Value Range Interpretation Description Data Sup porting Code Source(s) Document(s ) Sodium 137-145 <content [facility] [Moles/volume] styleCode="Kirstin Destiny in Serum or d">Sodium Medical Plasma </content>143 Center MEQ/L<content styleCode="Jody lics"> (137-145 MEQ/L)</conten t> Potassium 3.5-5.3 <content [facility] [Moles/volume] styleCode="Kirstin Destiny in Serum or d">Potassium Medical Plasma </content>5.1 Center MEQ/L<content styleCode="Jody lics"> (3.5-5.3 MEQ/L)</conten t> Carbon 22-30 <content [facility] dioxide, total styleCode="Kirstin Destiny [Moles/volume] d">Carbon Medical in Serum or Dioxide Center Plasma </content>23 MEQ/L<content styleCode="Jody lics"> (22-30 MEQ/L)</conten t> Chloride 98-107 Above high normal <content [facility] [Moles/volume] styleCode="Kirstin Destiny in Serum or d">Chloride Medical Plasma </content>109 Center MEQ/L H<content styleCode="Jody lics"> (98-107 MEQ/L)</conten t> Glucose 74-106 <content [facility] [Mass/volume] styleCode="Kirstin Destiny in Serum or d">Glucose Medical Plasma </content>80 Center MG/DL<content styleCode="Jody lics"> (74-106 MG/DL)</conten t> UNK 9-20 Above high normal <content Saint styleCode="Kirstin Gays d">BUN Medical </content>21 Center MG/DL H<content styleCode="Jody lics"> (9-20 MG/DL)</conten t> Creatinine 0.5-1.3 <content [facility] [Mass/volume] styleCode="Kirstin Gays in Serum or d">Creatinine Medical Plasma </content>1.0 Center MG/DL<content styleCode="Jody lics"> (0.5-1.3 MG/DL)</conten t> UNK > 60 <content Saint styleCode="Kirstin Gays d">EGFR Medical </content>96 Center GFR<content styleCode="Jody lics"> (> 60 GFR)</content> Calcium 8.4-10.2 <content [facility] [Mass/volume] styleCode="Kirstin Gays in Serum or d">Calcium Medical Plasma </content>8.5 Center MG/DL<content styleCode="Jody lics"> (8.4-10.2 MG/DL)</conten t> ID Date Data Source LIPID.[id number] 02/12/2019 05:45:00 PM EDT [facility] Name Value Range Interpretation Description Data Sup porting Code Source(s) Document(s ) Triglyceride < 150 Above high normal <content [facility] [Mass/volume] styleCode="Bold"> Destiny in Serum or Triglycerides Medical Plasma </content>277 Center MG/DL H<content styleCode="Italic s"> (< 150 MG/DL)</content> Cholesterol -<200 <content [facility] [Mass/volume] styleCode="Bold"> Destiny in Serum or Cholesterol Medical Plasma </content>119 Center MG/DL<content styleCode="Italic s"> (-<200 MG/DL)</content> UNK <content Saint styleCode="Bold"> Destiny LDL-Cholesterol Medical </content> Center (Reference Range: not available)
<c ontent styleCode="xLocal PreformattedText" >Triglycerides are >250 mg/dl; therefore, the LDL calculation is invalid.
Chol esterol electrophoresis is recommended if medically appropriate.</con tent> UNK > 60 <content Saint styleCode="Bold"> Destiny HDL- Cholesterol Medical </content>84 Center MG/DL<content styleCode="Italic s"> (> 60 MG/DL)</content> ID Date Data Source [employer].[id number] 02/12/2019 05:45:00 PM EDT [facility] -0400 Name Value Range Interpretation Description Data Sup porting Code Source(s) Document(s ) Troponin < 0.034 Above upper panic <content [facility] I.cardiac limits styleCode="Bold Destiny [Mass/volume ">Troponin I Medical ] in Serum </content><cont Center or Plasma ent styleCode="Bold ">0.099 NG/ML HH</content><co ntent styleCode="Ital ics"> (< 0.034 NG/ML)</content > ID Date Data Source LIPID 02/12/2019 05:45:00 PM EDT [facility] Name Value Range Interpretation Description Data Sup porting Code Source(s) Document(s ) Triglyceride < 150 Above high normal <content [facility] [Mass/volume] styleCode="Bold"> Destiny in Serum or Triglycerides Medical Plasma </content>1801 Center MG/DL H<content styleCode="Italic s"> (< 150 MG/DL)</content> UNK > 60 Below low normal <content Saint styleCode="Bold"> Destiny HDL- Cholesterol Medical </content>29 Center MG/DL L<content styleCode="Italic s"> (> 60 MG/DL)</content> Cholesterol -<200 Above high normal <content Saint [Mass/volume] styleCode="Bold"> Destiny in Serum or Cholesterol Medical Plasma </content>249 Center MG/DL H<content styleCode="Italic s"> (-<200 MG/DL)</content> UNK <content Saint styleCode="Bold"> Destiny LDL-Cholesterol Medical </content> Center (Reference Range: not available)
<c ontent styleCode="xLocal PreformattedText" >Triglycerides are >250 mg/dl; therefore, the LDL calculation is invalid.
Chol esterol electrophoresis is recommended if medically appropriate.</con tent> Cholesterol -<200 <content Saint [Mass/volume] styleCode="Bold"> Destiny in Serum or Cholesterol Medical Plasma </content>162 Center MG/DL<content styleCode="Italic s"> (-<200 MG/DL)</content> Triglyceride < 150 <content Saint [Mass/volume] styleCode="Bold"> Destiny in Serum or Triglycerides Medical Plasma </content>103 Center MG/DL<content styleCode="Italic s"> (< 150 MG/DL)</content> UNK < 100 <content [facility] styleCode="Bold"> [facility] LDL-Cholesterol [facility] </content>13 Center MG/DL<content styleCode="Italic s"> (< 100 MG/DL)</content> UNK > 60 <content [facility] styleCode="Bold"> [facility] HDL- Cholesterol [facility] </content>128 Center MG/DL<content styleCode="Italic s"> (> 60 MG/DL)</content> Cholesterol -<200 <content [facility] [Mass/volume] styleCode="Bold"> [facility] in Serum or Cholesterol Medical Plasma </content>139 Center MG/DL<content styleCode="Italic s"> (-<200 MG/DL)</content> Triglyceride < 150 Above high normal <content [facility] [Mass/volume] styleCode="Bold"> [facility] in Serum or Triglycerides Medical Plasma </content>164 Center MG/DL H<content styleCode="Italic s"> (< 150 MG/DL)</content> UNK < 100 <content [facility] styleCode="Bold"> [facility] LDL-Cholesterol [facility] </content>15 Center MG/DL<content styleCode="Italic s"> (< 100 MG/DL)</content> UNK > 60 <content [facility] styleCode="Bold"> [facility] HDL- Cholesterol [facility] </content>91 Center MG/DL<content styleCode="Italic s"> (> 60 MG/DL)</content> UNK <content [facility] styleCode="Bold"> [facility] LDL-Cholesterol [facility] </content> Center (Reference Range: not available)
<c ontent styleCode="xLocal PreformattedText" >Triglycerides are >250 mg/dl; therefore, the LDL calculation is invalid.
Chol esterol electrophoresis is recommended if medically appropriate.</con tent> UNK > 60 <content [facility] styleCode="Bold"> [facility] </content>90 Center MG/DL<content styleCode="Italic s"> (> 60 MG/DL)</content> Cholesterol -<200 <content [facility] [Mass/volume] styleCode="Bold"> [facility] in Serum or Cholesterol Medical Plasma </content>120 Center MG/DL<content styleCode="Italic s"> (-<200 MG/DL)</content> Triglyceride < 150 Above high normal <content [facility] [Mass/volume] styleCode="Bold"> [facility] in Serum or Triglycerides Medical Plasma </content>256 Center MG/DL H<content styleCode="Italic s"> (< 150 MG/DL)</content> Cholesterol -<200 <content [facility] [Mass/volume] styleCode="Bold"> [facility] in Serum or Cholesterol Medical Plasma </content>119 Center MG/DL<content styleCode="Italic s"> (-<200 MG/DL)</content> Triglyceride < 150 Above high normal <content [facility] [Mass/volume] styleCode="Bold"> [facility] in Serum or Triglycerides Medical Plasma </content>277 Center MG/DL H<content styleCode="Italic s"> (< 150 MG/DL)</content> UNK <content [facility] styleCode="Bold"> [facility] LDL-Cholesterol [facility] </content> Center (Reference Range: not available)
<c ontent styleCode="xLocal PreformattedText" >Triglycerides are >250 mg/dl; therefore, the LDL calculation is invalid.
Chol esterol electrophoresis is recommended if medically appropriate.</con tent> UNK > 60 <content [facility] styleCode="Bold"> [facility]- [facility] </content>84 Center MG/DL<content styleCode="Italic s"> (> 60 MG/DL)</content> ID Date Data Source [id number] 02/12/2019 05:45:00 PM EDT [facility] Name Value Range Interpretation Description Data Sup porting Code Source(s) Document(s ) Leukocytes 4.4-11.0 Above high <content [facility] [#/volume] in normal styleCode="Bold [facility] Blood by ">White Blood Medical Automated count Cell Count Center </content>11.41 [facility] H<content styleCode="Ital ics"> (4.4-11.0 [facility])</content > Hematocrit 41.0-53. Below low normal <content [facility] [Volume 0 styleCode="Bold [facility] Fraction] of ">Hematocrit Medical Blood by </content>32.0 Center Automated count % L<content styleCode="Ital ics"> (41.0-53.0 %)</content> Erythrocytes 4.4-5.9 Below low normal <content [facility] [#/volume] in styleCode="Bold [facility] Blood by ">Red Blood Medical Automated count Cell Count Center </content>3.29 [facility] L<content styleCode="Ital ics"> (4.4-5.9 [facility])</content > Hemoglobin 13.5-17. Below low normal <content [facility] [Mass/volume] in 5 styleCode="Bold [facility] Blood ">Hemoglobin Medical </content>10.7 Center G/DL L<content styleCode="Ital ics"> (13.5-17.5 G/DL)</content> Erythrocyte mean 80.0-100 <content [facility] corpuscular .0 styleCode="Bold [facility] volume [Entitic ">Mean Medical volume] by Corpuscular Center Automated count Volume </content>97.3 FL<content styleCode="Ital ics"> (80.0-100.0 FL)</content> Erythrocyte mean 26.0-34. <content [facility] corpuscular 0 styleCode="Bold [facility] hemoglobin ">Mean Medical [Entitic mass] Corposcular Center by Automated Hemoglobin count </content>32.5 PG<content styleCode="Ital ics"> (26.0-34.0 PG)</content> Platelets 130-400 <content [facility] [#/volume] in styleCode="Bold [facility] Blood by ">Platelet Medical Automated count Count Center </content>141 [facility]M<content styleCode="Ital ics"> (130-400 [facility])</content > Erythrocyte mean 32.0-37. <content [facility] corpuscular 0 styleCode="Bold [facility] hemoglobin ">Mean Corpus. Medical concentration Hgb Center [Mass/volume] by Concentration Automated count (MCHC) </content>33.4 G/DL<content styleCode="Ital ics"> (32.0-37.0 G/DL)</content> Erythrocyte 11.5-14. Above high <content [facility] distribution 5 normal styleCode="Bold [facility] width [Ratio] by ">Red Cell Medical Automated count Distribution Center Width </content>19.7 % H<content styleCode="Ital ics"> (11.5-14.5 %)</content> Neutrophils 36-66 <content [facility] [#/volume] in styleCode="Bold [facility] Blood by ">Neutrophil Medical Automated count </content>51.1 Center %<content styleCode="Ital ics"> (36-66 %)</content> UNK 1.6-7.3 <content [facility] styleCode="Bold [facility] ">Neutrophil Medical Count Center </content>5.84 [facility]M<content styleCode="Ital ics"> (1.6-7.3 [facility])</content > Platelet mean 8.0-11.0 Above high <content [facility] volume [Entitic normal styleCode="Bold [facility] volume] in Blood ">Mean Platelet Medical by Automated Volume Center count </content>11.4 FL H<content styleCode="Ital ics"> (8.0-11.0 FL)</content> Lymphocytes 24.0-44. <content [facility] [#/volume] in 0 styleCode="Bold [facility] Blood by ">Lymphocyte Medical Automated count </content>38.7 Center %<content styleCode="Ital ics"> (24.0-44.0 %)</content> Monocytes 3.0-10.0 <content [facility] [#/volume] in styleCode="Bold [facility] Blood by ">Monocyte Medical Automated count </content>7.9 Center %<content styleCode="Ital ics"> (3.0-10.0 %)</content> UNK 0.2-0.9 <content [facility] styleCode="Bold [facility] ">Monocyte Medical Count Center </content>0.90 KC[facility]M<content styleCode="Ital ics"> (0.2-0.9 [facility])</content > UNK 1.0-4.8 <content [facility] styleCode="Bold [facility] ">Lymphocyte Medical Count Center </content>4.42 [facility]M<content styleCode="Ital ics"> (1.0-4.8 [facility])</content > UNK 0.0-0.3 <content [facility] styleCode="Bold [facility] ">Basophil Medical Count Center </content>0.04 KCUMM<content styleCode="Ital ics"> (0.0-0.3 [facility])</content > UNK 0.0-0.6 <content [facility] styleCode="Bold [facility] ">Eosinophil Medical Count Center </content>0.10 [facility]M<content styleCode="Ital ics"> (0.0-0.6 [facility])</content > Basophils 0.0-1.0 <content [facility] [#/volume] in styleCode="Bold [facility] Blood by ">Basophil Medical Automated count </content>0.4 Center %<content styleCode="Ital ics"> (0.0-1.0 %)</content> Eosinophils 0-5.0 <content [facility] [#/volume] in styleCode="Bold [facility] Blood by ">Eosinophil Medical Automated count </content>0.9 Center %<content styleCode="Ital ics"> (0-5.0 %)</content> UNK 0 Above high <content [facility] normal styleCode="Bold [facility] ">Nucleated Red Medical Blood Cell Center </content>0.8 /100 H<content styleCode="Ital ics"> (0 /100)</content> UNK 0-0.1 Above high <content [facility] normal styleCode="Bold [facility] ">Immature Medical Granulocyte Center Count </content>0.11 [facility] H<content styleCode="Ital ics"> (0-0.1 [facility])</content > UNK < 1 Above high <content [facility] normal styleCode="Bold [facility] ">Immature Medical Granulocyte Center Ratio </content>1.0 % H<content styleCode="Ital ics"> (< 1 %)</content> UNK 0.0 Above high <content [facility] normal styleCode="Bold [facility] ">Nucleated Red Medical Blood Cell Center Count </content>0.09 [facility] H<content styleCode="Ital ics"> (0.0 [facility]M)</content > Erythrocytes 4.4-5.9 Below low normal <content [facility] [#/volume] in styleCode="Bold [facility] Blood by ">Red Blood Medical Automated count Cell Count Center </content>3.12 [facility] L<content styleCode="Ital ics"> (4.4-5.9 [facility])</content > Leukocytes 4.4-11.0 <content [facility] [#/volume] in styleCode="Bold [facility] Blood by ">White Blood Medical Automated count Cell Count Center </content>8.18 KC[facility]M<content styleCode="Ital ics"> (4.4-11.0 [facility])</content > Erythrocyte mean 26.0-34. <content [facility] corpuscular 0 styleCode="Bold [facility] hemoglobin ">Mean Medical [Entitic mass] Corposcular Center by Automated Hemoglobin count </content>32.7 PG<content styleCode="Ital ics"> (26.0-34.0 PG)</content> Erythrocyte mean 80.0-100 <content [facility] corpuscular .0 styleCode="Bold [facility] volume [Entitic ">Mean Medical volume] by Corpuscular Center Automated count Volume </content>88.8 FL<content styleCode="Ital ics"> (80.0-100.0 FL)</content> Hematocrit 41.0-53. Below low normal <content [facility] [Volume 0 styleCode="Bold [facility] Fraction] of ">Hematocrit Medical Blood by </content>27.7 Center Automated count % L<content styleCode="Ital ics"> (41.0-53.0 %)</content> Hemoglobin 13.5-17. Below low normal <content [facility] [Mass/volume] in 5 styleCode="Bold Desti[facility] Blood ">Hemoglobin Medical </content>10.2 Center G/DL L<content styleCode="Ital ics"> (13.5-17.5 G/DL)</content> Platelet mean 8.0-11.0 Above high <content [facility] volume [Entitic normal styleCode="Bold [facility] volume] in Blood ">Mean Platelet Medical by Automated Volume Center count </content>11.9 FL H<content styleCode="Ital ics"> (8.0-11.0 FL)</content> Platelets 130-400 Below low normal <content [facility] [#/volume] in styleCode="Bold [facility] Blood by ">Platelet Medical Automated count Count Center </content>114 [facility] L<content styleCode="Ital ics"> (130-400 [facility])</content > Erythrocyte 11.5-14. Above high <content [facility] distribution 5 normal styleCode="Bold [facility] width [Ratio] by ">Red Cell Medical Automated count Distribution Center Width </content>19.9 % H<content styleCode="Ital ics"> (11.5-14.5 %)</content> Erythrocyte mean 32.0-37. <content [facility] corpuscular 0 styleCode="Bold [facility] hemoglobin ">Mean Corpus. Medical concentration Hgb Center [Mass/volume] by Concentration Automated count (MCHC) </content>36.8 G/DL<content styleCode="Ital ics"> (32.0-37.0 G/DL)</content> Lymphocytes 24.0-44. <content [facility] [#/volume] in 0 styleCode="Bold [facility] Blood by ">Lymphocyte Medical Automated count </content>33.6 Center %<content styleCode="Ital ics"> (24.0-44.0 %)</content> UNK 1.6-7.3 <content [facility] styleCode="Bold [facility] ">Neutrophil Medical Count Center </content>4.79 KC[facility]M<content styleCode="Ital ics"> (1.6-7.3 [facility])</content > Neutrophils 36-66 <content [facility] [#/volume] in styleCode="Bold [facility] Blood by ">Neutrophil Medical Automated count </content>58.5 Center %<content styleCode="Ital ics"> (36-66 %)</content> Eosinophils 0-5.0 <content [facility] [#/volume] in styleCode="Bold [facility] Blood by ">Eosinophil Medical Automated count </content>0.5 Center %<content styleCode="Ital ics"> (0-5.0 %)</content> UNK 0.2-0.9 <content [facility] styleCode="Bold [facility] ">Monocyte Medical Count Center </content>0.53 [facility]<content styleCode="Ital ics"> (0.2-0.9 [facility])</content > Monocytes 3.0-10.0 <content [facility] [#/volume] in styleCode="Bold [facility] Blood by ">Monocyte Medical Automated count </content>6.5 Center %<content styleCode="Ital ics"> (3.0-10.0 %)</content> UNK 1.0-4.8 <content [facility] styleCode="Bold [facility] ">Lymphocyte Medical Count Center </content>2.75 KC[facility]M<content styleCode="Ital ics"> (1.0-4.8 [facility])</content > UNK 0 <content [facility] styleCode="Bold [facility] ">Nucleated Red Medical Blood Cell Center </content>0.0 /100<content styleCode="Ital ics"> (0 /100)</content> UNK 0.0-0.3 <content [facility] styleCode="Bold [facility] ">Basophil Medical Count Center </content>0.03 KC[facility]<content styleCode="Ital ics"> (0.0-0.3 [facility])</content > Basophils 0.0-1.0 <content [facility] [#/volume] in styleCode="Bold [facility] Blood by ">Basophil Medical Automated count </content>0.4 Center %<content styleCode="Ital ics"> (0.0-1.0 %)</content> UNK 0.0-0.6 <content [facility] styleCode="Bold [facility] ">Eosinophil Medical Count Center </content>0.04 [facility]<content styleCode="Ital ics"> (0.0-0.6 [facility])</content > UNK NORMAL <content [facility] styleCode="Bold [facility] ">Platelet Medical Estimate Center </content>PLT. SLIGHTLY DECREASED <content styleCode="Ital ics"> (NORMAL )</content> UNK < 1 <content [facility] styleCode="Bold [facility] ">Immature Medical Granulocyte Center Ratio </content>0.5 %<content styleCode="Ital ics"> (< 1 %)</content> UNK 0-0.1 <content [facility] styleCode="Bold [facility] ">Immature Medical Granulocyte Center Count </content>0.04 KC[facility]M<content styleCode="Ital ics"> (0-0.1 [facility])</content > UNK 0.0 <content [facility] styleCode="Bold [facility] ">Nucleated Red Medical Blood Cell Center Count </content>0.00 KC[facility]M<content styleCode="Ital ics"> (0.0 [facility])</content > UNK NORMAL <content [facility] styleCode="Bold [facility] ">RBC Medical Morphology Center </content>ABNOR MAL <content styleCode="Ital ics"> (NORMAL )</content> UNK NORMAL <content [facility] styleCode="Bold [facility] ">Target Cell Medical </content>SLIGH Center T <content styleCode="Ital ics"> (NORMAL )</content> UNK NORMAL <content [facility] styleCode="Bold [facility] ">Polychromasia Medical </content>SLIGH Center T <content styleCode="Ital ics"> (NORMAL )</content> UNK NORMAL <content [facility] styleCode="Bold [facility] ">Poikilocyte Medical </content>SLIGH Center T <content styleCode="Ital ics"> (NORMAL )</content> UNK NORMAL <content [facility] styleCode="Bold [facility] ">Macrocyte Medical </content>[facility] Center T <content styleCode="Ital ics"> (NORMAL )</content> UNK NORMAL <content [facility] styleCode="Bold [facility] ">Anisocyte Medical </content>[facility] Center T <content styleCode="Ital ics"> (NORMAL )</content> Erythrocytes 4.4-5.9 Below low normal <content [facility] [#/volume] in styleCode="Bold [facility] Blood by ">Red Blood Medical Automated count Cell Count Center </content>3.25 [facility] L<content styleCode="Ital ics"> (4.4-5.9 [facility])</content > Leukocytes 4.4-11.0 <content [facility] [#/volume] in styleCode="Bold [facility] Blood by ">White Blood Medical Automated count Cell Count Center </content>6.56 KCUMM<content styleCode="Ital ics"> (4.4-11.0 [facility])</content > Erythrocyte mean 32.0-37. <content [facility] corpuscular 0 styleCode="Bold [facility] hemoglobin ">Mean Corpus. Medical concentration Hgb Center [Mass/volume] by Concentration Automated count (MCHC) </content>33.3 G/DL<content styleCode="Ital ics"> (32.0-37.0 G/DL)</content> Erythrocyte mean 26.0-34. Above high <content [facility] corpuscular 0 normal styleCode="Bold [facility] hemoglobin ">Mean Medical [Entitic mass] Corposcular Center by Automated Hemoglobin count </content>34.5 PG H<content styleCode="Ital ics"> (26.0-34.0 PG)</content> Erythrocyte mean 80.0-100 <content [facility] corpuscular .0 styleCode="Bold [facility] volume [Entitic ">Mean Medical volume] by Corpuscular Center Automated count Volume </content>103.4 FL<content styleCode="Ital ics"> (80.0-100.0 FL)</content> Hematocrit 41.0-53. Below low normal <content [facility] [Volume 0 styleCode="Bold [facility] Fraction] of ">Hematocrit Medical Blood by </content>33.6 Center Automated count % L<content styleCode="Ital ics"> (41.0-53.0 %)</content> Hemoglobin 13.5-17. Below low normal <content [facility] [Mass/volume] in 5 styleCode="Bold [facility] Blood ">Hemoglobin Medical </content>11.2 Center G/DL L<content styleCode="Ital ics"> (13.5-17.5 G/DL)</content> Lymphocytes 24.0-44. Below low normal <content [facility] [#/volume] in 0 styleCode="Bold [facility] Blood by ">Lymphocyte Medical Automated count </content>11.0 Center % L<content styleCode="Ital ics"> (24.0-44.0 %)</content> UNK 1.6-7.3 <content [facility] styleCode="Bold [facility] ">Neutrophil Medical Count Center </content>5.55 [facility]M<content styleCode="Ital ics"> (1.6-7.3 [facility])</content > Neutrophils 36-66 Above high <content [facility] [#/volume] in normal styleCode="Bold [facility] Blood by ">Neutrophil Medical Automated count </content>84.5 Center % H<content styleCode="Ital ics"> (36-66 %)</content> Platelet mean 8.0-11.0 <content [facility] volume [Entitic styleCode="Bold [facility] volume] in Blood ">Mean Platelet Medical by Automated Volume Center count </content>10.8 FL<content styleCode="Ital ics"> (8.0-11.0 FL)</content> Platelets 130-400 <content [facility] [#/volume] in styleCode="Bold [facility] Blood by ">Platelet Medical Automated count Count Center </content>159 [facility]M<content styleCode="Ital ics"> (130-400 [facility])</content > Erythrocyte 11.5-14. Above high <content [facility] distribution 5 normal styleCode="Bold [facility] width [Ratio] by ">Red Cell Medical Automated count Distribution Center Width </content>15.1 % H<content styleCode="Ital ics"> (11.5-14.5 %)</content> UNK 0.0-0.6 <content [facility] styleCode="Bold [facility] ">Eosinophil Medical Count Center </content>0.00 [facility]<content styleCode="Ital ics"> (0.0-0.6 [facility])</content > Eosinophils 0-5.0 <content [facility] [#/volume] in styleCode="Bold [facility] Blood by ">Eosinophil Medical Automated count </content>0.0 Center %<content styleCode="Ital ics"> (0-5.0 %)</content> UNK 0.2-0.9 <content [facility] styleCode="Bold [facility] ">Monocyte Medical Count Center </content>0.25 [facility]<content styleCode="Ital ics"> (0.2-0.9 [facility])</content > Monocytes 3.0-10.0 <content [facility] [#/volume] in styleCode="Bold [facility] Blood by ">Monocyte Medical Automated count </content>3.8 Center %<content styleCode="Ital ics"> (3.0-10.0 %)</content> UNK 1.0-4.8 Below low normal <content [facility] styleCode="Bold [facility] ">Lymphocyte Medical Count Center </content>0.72 [facility] L<content styleCode="Ital ics"> (1.0-4.8 [facility])</content > UNK 0-0.1 <content [facility] styleCode="Bold [facility] ">Immature Medical Granulocyte Center Count </content>0.03 [facility]M<content styleCode="Ital ics"> (0-0.1 [facility])</content > UNK 0.0 <content [facility] styleCode="Bold [facility] ">Nucleated Red Medical Blood Cell Center Count </content>0.00 [facility]M<content styleCode="Ital ics"> (0.0 [facility])</content > UNK 0 <content [facility] styleCode="Bold [facility] ">Nucleated Red Medical Blood Cell Center </content>0.0 /100<content styleCode="Ital ics"> (0 /100)</content> UNK 0.0-0.3 <content [facility] styleCode="Bold [facility] ">Basophil Medical Count Center </content>0.01 [facility]M<content styleCode="Ital ics"> (0.0-0.3 [facility])</content > Basophils 0.0-1.0 <content [facility] [#/volume] in styleCode="Bold [facility] Blood by ">Basophil Medical Automated count </content>0.2 Center %<content styleCode="Ital ics"> (0.0-1.0 %)</content> UNK < 1 <content [facility] styleCode="Bold [facility] ">Immature Medical Granulocyte Center Ratio </content>0.5 %<content styleCode="Ital ics"> (< 1 %)</content> Hemoglobin 13.5-17. Below low normal <content [facility] [Mass/volume] in 5 styleCode="Bold [facility] Blood ">Hemoglobin Medical </content>11.9 Center G/DL L<content styleCode="Ital ics"> (13.5-17.5 G/DL)</content> Erythrocytes 4.4-5.9 Below low normal <content [facility] [#/volume] in styleCode="Bold [facility] Blood by ">Red Blood Medical Automated count Cell Count Center </content>3.48 [facility] L<content styleCode="Ital ics"> (4.4-5.9 [facility])</content > Leukocytes 4.4-11.0 Above high <content [facility] [#/volume] in normal styleCode="Bold [facility] Blood by ">White Blood Medical Automated count Cell Count Center </content>18.60 [facility] H<content styleCode="Ital ics"> (4.4-11.0 [facility])</content > Erythrocyte mean 26.0-34. Above high <content [facility] corpuscular 0 normal styleCode="Bold [facility] hemoglobin ">Mean Medical [Entitic mass] Corposcular Center by Automated Hemoglobin count </content>34.2 PG H<content styleCode="Ital ics"> (26.0-34.0 PG)</content> Erythrocyte mean 80.0-100 <content [facility] corpuscular .0 styleCode="Bold [facility] volume [Entitic ">Mean Medical volume] by Corpuscular Center Automated count Volume </content>106.3 FL<content styleCode="Ital ics"> (80.0-100.0 FL)</content> Hematocrit 41.0-53. Below low normal <content [facility] [Volume 0 styleCode="Bold [facility] Fraction] of ">Hematocrit Medical Blood by </content>37.0 Center Automated count % L<content styleCode="Ital ics"> (41.0-53.0 %)</content> Erythrocyte 11.5-14. Above high <content [facility] distribution 5 normal styleCode="Bold [facility] width [Ratio] by ">Red Cell Medical Automated count Distribution Center Width </content>15.0 % H<content styleCode="Ital ics"> (11.5-14.5 %)</content> Erythrocyte mean 32.0-37. <content [facility] corpuscular 0 styleCode="Bold [facility] hemoglobin ">Mean Corpus. Medical concentration Hgb Center [Mass/volume] by Concentration Automated count (MCHC) </content>32.2 G/DL<content styleCode="Ital ics"> (32.0-37.0 G/DL)</content> Neutrophils 36-66 Above high <content [facility] [#/volume] in normal styleCode="Bold [facility] Blood by ">Neutrophil Medical Automated count </content>87.7 Center % H<content styleCode="Ital ics"> (36-66 %)</content> Platelet mean 8.0-11.0 <content [facility] volume [Entitic styleCode="Bold Destiny volume] in Blood ">Mean Platelet Medical by Automated Volume Center count </content>10.8 FL<content styleCode="Ital ics"> (8.0-11.0 FL)</content> Platelets 130-400 <content [facility] [#/volume] in styleCode="Bold [facility] Blood by ">Platelet Medical Automated count Count Center </content>189 [facility]M<content styleCode="Ital ics"> (130-400 [facility])</content > Lymphocytes 24.0-44. Below low normal <content [facility] [#/volume] in 0 styleCode="Bold [facility] Blood by ">Lymphocyte Medical Automated count </content>7.3 % Center L<content styleCode="Ital ics"> (24.0-44.0 %)</content> UNK 1.6-7.3 Above high <content [facility] normal styleCode="Bold [facility] ">Neutrophil Medical Count Center </content>16.31 [facility] H<content styleCode="Ital ics"> (1.6-7.3 [facility])</content > Monocytes 3.0-10.0 <content [facility] [#/volume] in styleCode="Bold [facility] Blood by ">Monocyte Medical Automated count </content>4.3 Center %<content styleCode="Ital ics"> (3.0-10.0 %)</content> UNK 1.0-4.8 <content [facility] styleCode="Bold [facility] ">Lymphocyte Medical Count Center </content>1.36 [facility]M<content styleCode="Ital ics"> (1.0-4.8 [facility])</content > UNK 0.0-0.6 <content [facility] styleCode="Bold Destiny ">Eosinophil Medical Count Center </content>0.00 [facility]<content styleCode="Ital ics"> (0.0-0.6 [facility])</content > Eosinophils 0-5.0 <content [facility] [#/volume] in styleCode="Bold [facility] Blood by ">Eosinophil Medical Automated count </content>0.0 Center %<content styleCode="Ital ics"> (0-5.0 %)</content> UNK 0.2-0.9 <content [facility] styleCode="Bold Destiny ">Monocyte Medical Count Center </content>0.80 [facility]<content styleCode="Ital ics"> (0.2-0.9 [facility])</content > UNK 0.0-0.3 <content [facility] styleCode="Bold Destiny ">Basophil Medical Count Center </content>0.02 [facility]M<content styleCode="Ital ics"> (0.0-0.3 [facility])</content > Basophils 0.0-1.0 <content [facility] [#/volume] in styleCode="Bold [facility]iny Blood by ">Basophil Medical Automated count </content>0.1 Center %<content styleCode="Ital ics"> (0.0-1.0 %)</content> UNK 0.0 <content [facility] styleCode="Bold Destiny ">Nucleated Red Medical Blood Cell Center Count </content>0.00 [facility]M<content styleCode="Ital ics"> (0.0 [facility])</content > UNK 0 <content [facility] styleCode="Bold Destiny ">Nucleated Red Medical Blood Cell Center </content>0.0 /100<content styleCode="Ital ics"> (0 /100)</content> UNK < 1 <content [facility] styleCode="Bold Destiny ">Immature Medical Granulocyte Center Ratio </content>0.6 %<content styleCode="Ital ics"> (< 1 %)</content> UNK 0-0.1 Above high <content [facility] normal styleCode="Bold Destiny ">Immature Medical Granulocyte Center Count </content>0.11 [facility] H<content styleCode="Ital ics"> (0-0.1 [facility])</content > Hemoglobin 13.5-17. Below low normal <content [facility] [Mass/volume] in 5 styleCode="Bold Destiny Blood ">Hemoglobin Medical </content>11.5 Center G/DL L<content styleCode="Ital ics"> (13.5-17.5 G/DL)</content> Erythrocytes 4.4-5.9 Below low normal <content [facility] [#/volume] in styleCode="Bold [facility]iny Blood by ">Red Blood Medical Automated count Cell Count Center </content>3.57 [facility] L<content styleCode="Ital ics"> (4.4-5.9 [facility])</content > Leukocytes 4.4-11.0 Below low normal <content [facility] [#/volume] in styleCode="Bold [facility] Blood by ">White Blood Medical Automated count Cell Count Center </content>3.38 KCUMM L<content styleCode="Ital ics"> (4.4-11.0 KCUMM)</content > Erythrocyte mean 32.0-37. Below low normal <content [facility] corpuscular 0 styleCode="Bold Destiny hemoglobin ">Mean Corpus. Medical concentration Hgb Center [Mass/volume] by Concentration Automated count (MCHC) </content>31.8 G/DL L<content styleCode="Ital ics"> (32.0-37.0 G/DL)</content> Erythrocyte mean 26.0-34. <content [facility] corpuscular 0 styleCode="Bold Destiny hemoglobin ">Mean Medical [Entitic mass] Corposcular Center by Automated Hemoglobin count </content>32.2 PG<content styleCode="Ital ics"> (26.0-34.0 PG)</content> Erythrocyte mean 80.0-100 <content [facility] corpuscular .0 styleCode="Bold Destiny volume [Entitic ">Mean Medical volume] by Corpuscular Center Automated count Volume </content>101.4 FL<content styleCode="Ital ics"> (80.0-100.0 FL)</content> Hematocrit 41.0-53. Below low normal <content [facility] [Volume 0 styleCode="Bold Destiny Fraction] of ">Hematocrit Medical Blood by </content>36.2 Center Automated count % L<content styleCode="Ital ics"> (41.0-53.0 %)</content> UNK 1.6-7.3 <content [facility] styleCode="Bold Destiyn ">Neutrophil Medical Count Center </content>2.85 KCUMM<content styleCode="Ital ics"> (1.6-7.3 KCUMM)</content > Platelet mean 8.0-11.0 <content [facility] volume [Entitic styleCode="Bold Destiny volume] in Blood ">Mean Platelet Medical by Automated Volume Center count </content>10.3 FL<content styleCode="Ital ics"> (8.0-11.0 FL)</content> Platelets 130-400 Below low normal <content [facility] [#/volume] in styleCode="Bold Destiny Blood by ">Platelet Medical Automated count Count Center </content>115 KCUMM L<content styleCode="Ital ics"> (130-400 KCUMM)</content > Erythrocyte 11.5-14. Above high <content [facility] distribution 5 normal styleCode="Bold Destiny width [Ratio] by ">Red Cell Medical Automated count Distribution Center Width </content>15.0 % H<content styleCode="Ital ics"> (11.5-14.5 %)</content> UNK 0 <content [facility] styleCode="Bold Destiny ">Nucleated Red Medical Blood Cell Center </content>0.0 /100<content styleCode="Ital ics"> (0 /100)</content> UNK 0.0-0.3 <content [facility] styleCode="Bold Destiny ">Basophil Medical Count Center </content>0.01 KCUMM<content styleCode="Ital ics"> (0.0-0.3 KCUMM)</content > UNK 0.0-0.6 <content [facility] styleCode="Bold Destiny ">Eosinophil Medical Count Center </content>0.00 KCUMM<content styleCode="Ital ics"> (0.0-0.6 KCUMM)</content > UNK 0.2-0.9 Below low normal <content [facility] styleCode="Bold Destiny ">Monocyte Medical Count Center </content>0.04 KCUMM L<content styleCode="Ital ics"> (0.2-0.9 KCUMM)</content > UNK 1.0-4.8 Below low normal <content [facility] styleCode="Bold Destiny ">Lymphocyte Medical Count Center </content>0.46 KCUMM L<content styleCode="Ital ics"> (1.0-4.8 KCUMM)</content > UNK 42-75 Above high <content [facility] normal styleCode="Bold Destiny ">Manual Medical Neutrophil Center count </content>81.0 % H<content styleCode="Ital ics"> (42-75 %)</content> UNK < 1 <content [facility] styleCode="Bold Destiny ">Immature Medical Granulocyte Center Ratio </content>0.6 %<content styleCode="Ital ics"> (< 1 %)</content> UNK 0-0.1 <content [facility] styleCode="Bold Destiny ">Immature Medical Granulocyte Center Count </content>0.02 KCUMM<content styleCode="Ital ics"> (0-0.1 KCUMM)</content > UNK 0.0 <content [facility] styleCode="Bold Destiny ">Nucleated Red Medical Blood Cell Center Count </content>0.00 KCUMM<content styleCode="Ital ics"> (0.0 KCUMM)</content > UNK NORMAL <content [facility] styleCode="Bold Destiny ">Platelet Medical Estimate Center </content>ARIANNA L <content styleCode="Ital ics"> (NORMAL )</content> UNK 0-3 <content [facility] styleCode="Bold Destiny ">Manual Medical Eosinophil Center Count </content>1.0 %<content styleCode="Ital ics"> (0-3 %)</content> UNK 2-9 <content [facility] styleCode="Bold Destiny ">Monocyte-Manu Medical al Center </content>2.0 %<content styleCode="Ital ics"> (2-9 %)</content> UNK 21-51 Below low normal <content [facility] styleCode="Bold Destiny ">Manual Medical Lymphocyte Center Count </content>16.0 % L<content styleCode="Ital ics"> (21-51 %)</content> UNK NORMAL <content [facility] styleCode="Bold Destiny ">Ovalocyte Medical </content>SLIGH Center T <content styleCode="Ital ics"> (NORMAL )</content> UNK NORMAL <content [facility] styleCode="Bold Destiny ">Polychromasia Medical </content>SLIGH Center T <content styleCode="Ital ics"> (NORMAL )</content> Erythrocytes 4.4-5.9 Below low normal <content [facility] [#/volume] in styleCode="Bold Destiny Blood by ">Red Blood Medical Automated count Cell Count Center </content>3.73 MCUMM L<content styleCode="Ital ics"> (4.4-5.9 MCUMM)</content > Leukocytes 4.4-11.0 Above high <content [facility] [#/volume] in normal styleCode="Bold Destiny Blood by ">White Blood Medical Automated count Cell Count Center </content>15.21 KCUMM H<content styleCode="Ital ics"> (4.4-11.0 KCUMM)</content > Erythrocyte mean 26.0-34. <content [facility] corpuscular 0 styleCode="Bold Destiny hemoglobin ">Mean Medical [Entitic mass] Corposcular Center by Automated Hemoglobin count </content>32.2 PG<content styleCode="Ital ics"> (26.0-34.0 PG)</content> Erythrocyte mean 80.0-100 <content [facility] corpuscular .0 styleCode="Bold Destiny volume [Entitic ">Mean Medical volume] by Corpuscular Center Automated count Volume </content>102.1 FL<content styleCode="Ital ics"> (80.0-100.0 FL)</content> Hematocrit 41.0-53. Below low normal <content [facility] [Volume 0 styleCode="Bold Destiny Fraction] of ">Hematocrit Medical Blood by </content>38.1 Center Automated count % L<content styleCode="Ital ics"> (41.0-53.0 %)</content> Hemoglobin 13.5-17. Below low normal <content [facility] [Mass/volume] in 5 styleCode="Bold Destiny Blood ">Hemoglobin Medical </content>12.0 Center G/DL L<content styleCode="Ital ics"> (13.5-17.5 G/DL)</content> Neutrophils 36-66 Above high <content [facility] [#/volume] in normal styleCode="Bold Destiny Blood by ">Neutrophil Medical Automated count </content>73.2 Center % H<content styleCode="Ital ics"> (36-66 %)</content> Platelet mean 8.0-11.0 <content [facility] volume [Entitic styleCode="Bold Destiny volume] in Blood ">Mean Platelet Medical by Automated Volume Center count </content>10.9 FL<content styleCode="Ital ics"> (8.0-11.0 FL)</content> Platelets 130-400 <content [facility] [#/volume] in styleCode="Bold Destiny Blood by ">Platelet Medical Automated count Count Center </content>157 KCUMM<content styleCode="Ital ics"> (130-400 KCUMM)</content > Erythrocyte 11.5-14. <content [facility] distribution 5 styleCode="Bold Destiny width [Ratio] by ">Red Cell Medical Automated count Distribution Center Width </content>14.3 %<content styleCode="Ital ics"> (11.5-14.5 %)</content> Erythrocyte mean 32.0-37. Below low normal <content [facility] corpuscular 0 styleCode="Bold Destiny hemoglobin ">Mean Corpus. Medical concentration Hgb Center [Mass/volume] by Concentration Automated count (MCHC) </content>31.5 G/DL L<content styleCode="Ital ics"> (32.0-37.0 G/DL)</content> Monocytes 3.0-10.0 <content [facility] [#/volume] in styleCode="Bold Destiny Blood by ">Monocyte Medical Automated count </content>5.7 Center %<content styleCode="Ital ics"> (3.0-10.0 %)</content> UNK 1.0-4.8 <content [facility] styleCode="Bold Destiny ">Lymphocyte Medical Count Center </content>3.04 KCUMM<content styleCode="Ital ics"> (1.0-4.8 KCUMM)</content > Lymphocytes 24.0-44. Below low normal <content [facility] [#/volume] in 0 styleCode="Bold Destiny Blood by ">Lymphocyte Medical Automated count </content>20.0 Center % L<content styleCode="Ital ics"> (24.0-44.0 %)</content> UNK 1.6-7.3 Above high <content [facility] normal styleCode="Bold Destiny ">Neutrophil Medical Count Center </content>11.16 KCUMM H<content styleCode="Ital ics"> (1.6-7.3 KCUMM)</content > Basophils 0.0-1.0 <content [facility] [#/volume] in styleCode="Bold Destiny Blood by ">Basophil Medical Automated count </content>0.1 Center %<content styleCode="Ital ics"> (0.0-1.0 %)</content> UNK 0.0-0.6 <content [facility] styleCode="Bold Destiny ">Eosinophil Medical Count Center </content>0.04 KCUMM<content styleCode="Ital ics"> (0.0-0.6 KCUMM)</content > Eosinophils 0-5.0 <content [facility] [#/volume] in styleCode="Bold Destiny Blood by ">Eosinophil Medical Automated count </content>0.3 Center %<content styleCode="Ital ics"> (0-5.0 %)</content> UNK 0.2-0.9 <content [facility] styleCode="Bold Destiny ">Monocyte Medical Count Center </content>0.86 KCUMM<content styleCode="Ital ics"> (0.2-0.9 KCUMM)</content > UNK 0-0.1 <content [facility] styleCode="Bold Destiny ">Immature Medical Granulocyte Center Count </content>0.10 KCUMM<content styleCode="Ital ics"> (0-0.1 KCUMM)</content > UNK 0.0 <content [facility] styleCode="Bold Destiny ">Nucleated Red Medical Blood Cell Center Count </content>0.00 KCUMM<content styleCode="Ital ics"> (0.0 KCUMM)</content > UNK 0 <content [facility] styleCode="Bold Destiny ">Nucleated Red Medical Blood Cell Center </content>0.0 /100<content styleCode="Ital ics"> (0 /100)</content> UNK 0.0-0.3 <content [facility] styleCode="Bold Destiny ">Basophil Medical Count Center </content>0.01 KCUMM<content styleCode="Ital ics"> (0.0-0.3 KCUMM)</content > UNK < 1 <content [facility] styleCode="Bold Destiny ">Immature Medical Granulocyte Center Ratio </content>0.7 %<content styleCode="Ital ics"> (< 1 %)</content> Erythrocytes 4.4-5.9 Below low normal <content [facility] [#/volume] in styleCode="Bold Destiny Blood by ">Red Blood Medical Automated count Cell Count Center </content>4.00 MCUMM L<content styleCode="Ital ics"> (4.4-5.9 MCUMM)</content > Leukocytes 4.4-11.0 <content [facility] [#/volume] in styleCode="Bold Destiny Blood by ">White Blood Medical Automated count Cell Count Center </content>10.20 KCUMM<content styleCode="Ital ics"> (4.4-11.0 KCUMM)</content > Erythrocyte 11.5-14. <content [facility] distribution 5 styleCode="Bold Destiny width [Ratio] by ">Red Cell Medical Automated count Distribution Center Width </content>14.5 %<content styleCode="Ital ics"> (11.5-14.5 %)</content> Erythrocyte mean 32.0-37. <content [facility] corpuscular 0 styleCode="Bold Destiny hemoglobin ">Mean Corpus. Medical concentration Hgb Center [Mass/volume] by Concentration Automated count (MCHC) </content>32.6 G/DL<content styleCode="Ital ics"> (32.0-37.0 G/DL)</content> Erythrocyte mean 26.0-34. <content [facility] corpuscular 0 styleCode="Bold Destiny hemoglobin ">Mean Medical [Entitic mass] Corposcular Center by Automated Hemoglobin count </content>33.3 PG<content styleCode="Ital ics"> (26.0-34.0 PG)</content> Erythrocyte mean 80.0-100 <content [facility] corpuscular .0 styleCode="Bold Destiny volume [Entitic ">Mean Medical volume] by Corpuscular Center Automated count Volume </content>102.0 FL<content styleCode="Ital ics"> (80.0-100.0 FL)</content> Hematocrit 41.0-53. Below low normal <content [facility] [Volume 0 styleCode="Bold Destiny Fraction] of ">Hematocrit Medical Blood by </content>40.8 Center Automated count % L<content styleCode="Ital ics"> (41.0-53.0 %)</content> Hemoglobin 13.5-17. Below low normal <content [facility] [Mass/volume] in 5 styleCode="Bold Destiny Blood ">Hemoglobin Medical </content>13.3 Center G/DL L<content styleCode="Ital ics"> (13.5-17.5 G/DL)</content> UNK 0.0 <content [facility] styleCode="Bold Destiny ">Nucleated Red Medical Blood Cell Center Count </content>0.00 KCUMM<content styleCode="Ital ics"> (0.0 KCUMM)</content > UNK 0 <content [facility] styleCode="Bold Destiny ">Nucleated Red Medical Blood Cell Center </content>0.0 /100<content styleCode="Ital ics"> (0 /100)</content> Platelet mean 8.0-11.0 <content [facility] volume [Entitic styleCode="Bold Destiny volume] in Blood ">Mean Platelet Medical by Automated Volume Center count </content>10.3 FL<content styleCode="Ital ics"> (8.0-11.0 FL)</content> Platelets 130-400 <content [facility] [#/volume] in styleCode="Bold Destiny Blood by ">Platelet Medical Automated count Count Center </content>225 KCUMM<content styleCode="Ital ics"> (130-400 KCUMM)</content > Leukocytes 4.4-11.0 <content [facility] [#/volume] in styleCode="Bold Destiny Blood by ">White Blood Medical Automated count Cell Count Center </content>8.35 KCUMM<content styleCode="Ital ics"> (4.4-11.0 KCUMM)</content > Erythrocyte mean 26.0-34. <content [facility] corpuscular 0 styleCode="Bold Destiny hemoglobin ">Mean Medical [Entitic mass] Corposcular Center by Automated Hemoglobin count </content>30.5 PG<content styleCode="Ital ics"> (26.0-34.0 PG)</content> Erythrocyte mean 80.0-100 <content [facility] corpuscular .0 styleCode="Bold Destiny volume [Entitic ">Mean Medical volume] by Corpuscular Center Automated count Volume </content>90.2 FL<content styleCode="Ital ics"> (80.0-100.0 FL)</content> Hematocrit 41.0-53. Below low normal <content [facility] [Volume 0 styleCode="Bold Destiny Fraction] of ">Hematocrit Medical Blood by </content>34.9 Center Automated count % L<content styleCode="Ital ics"> (41.0-53.0 %)</content> Hemoglobin 13.5-17. Below low normal <content [facility] [Mass/volume] in 5 styleCode="Bold Destiny Blood ">Hemoglobin Medical </content>11.8 Center G/DL L<content styleCode="Ital ics"> (13.5-17.5 G/DL)</content> Erythrocytes 4.4-5.9 Below low normal <content [facility] [#/volume] in styleCode="Bold Destiny Blood by ">Red Blood Medical Automated count Cell Count Center </content>3.87 MCUMM L<content styleCode="Ital ics"> (4.4-5.9 MCUMM)</content > UNK 0.0 <content [facility] styleCode="Bold Destiny ">Nucleated Red Medical Blood Cell Center Count </content>0.00 KCUMM<content styleCode="Ital ics"> (0.0 KCUMM)</content > UNK 0 <content [facility] styleCode="Bold Destiny ">Nucleated Red Medical Blood Cell Center </content>0.0 /100<content styleCode="Ital ics"> (0 /100)</content> Platelet mean 8.0-11.0 <content [facility] volume [Entitic styleCode="Bold Destiny volume] in Blood ">Mean Platelet Medical by Automated Volume Center count </content>10.1 FL<content styleCode="Ital ics"> (8.0-11.0 FL)</content> Platelets 130-400 <content [facility] [#/volume] in styleCode="Bold Destiny Blood by ">Platelet Medical Automated count Count Center </content>161 KCUMM<content styleCode="Ital ics"> (130-400 KCUMM)</content > Erythrocyte 11.5-14. Above high <content [facility] distribution 5 normal styleCode="Bold Destiny width [Ratio] by ">Red Cell Medical Automated count Distribution Center Width </content>17.2 % H<content styleCode="Ital ics"> (11.5-14.5 %)</content> Erythrocyte mean 32.0-37. <content [facility] corpuscular 0 styleCode="Bold Destiny hemoglobin ">Mean Corpus. Medical concentration Hgb Center [Mass/volume] by Concentration Automated count (MCHC) </content>33.8 G/DL<content styleCode="Ital ics"> (32.0-37.0 G/DL)</content> Hemoglobin 13.5-17. Below low normal <content [facility] [Mass/volume] in 5 styleCode="Bold Destiny Blood ">Hemoglobin Medical </content>11.3 Center G/DL L<content styleCode="Ital ics"> (13.5-17.5 G/DL)</content> Erythrocytes 4.4-5.9 Below low normal <content [facility] [#/volume] in styleCode="Bold Destiny Blood by ">Red Blood Medical Automated count Cell Count Center </content>3.73 MCUMM L<content styleCode="Ital ics"> (4.4-5.9 MCUMM)</content > Leukocytes 4.4-11.0 <content [facility] [#/volume] in styleCode="Bold Destiny Blood by ">White Blood Medical Automated count Cell Count Center </content>6.98 KCUMM<content styleCode="Ital ics"> (4.4-11.0 KCUMM)</content > Platelets 130-400 <content [facility] [#/volume] in styleCode="Bold Destiny Blood by ">Platelet Medical Automated count Count Center </content>167 KCUMM<content styleCode="Ital ics"> (130-400 KCUMM)</content > Erythrocyte 11.5-14. Above high <content [facility] distribution 5 normal styleCode="Bold Destiny width [Ratio] by ">Red Cell Medical Automated count Distribution Center Width </content>17.1 % H<content styleCode="Ital ics"> (11.5-14.5 %)</content> Erythrocyte mean 32.0-37. <content [facility] corpuscular 0 styleCode="Bold Destiny hemoglobin ">Mean Corpus. Medical concentration Hgb Center [Mass/volume] by Concentration Automated count (MCHC) </content>32.7 G/DL<content styleCode="Ital ics"> (32.0-37.0 G/DL)</content> Erythrocyte mean 26.0-34. <content [facility] corpuscular 0 styleCode="Bold Desitny hemoglobin ">Mean Medical [Entitic mass] Corposcular Center by Automated Hemoglobin count </content>30.3 PG<content styleCode="Ital ics"> (26.0-34.0 PG)</content> Erythrocyte mean 80.0-100 <content [facility] corpuscular .0 styleCode="Bold Destiny volume [Entitic ">Mean Medical volume] by Corpuscular Center Automated count Volume </content>92.8 FL<content styleCode="Ital ics"> (80.0-100.0 FL)</content> Hematocrit 41.0-53. Below low normal <content [facility] [Volume 0 styleCode="Bold Destiny Fraction] of ">Hematocrit Medical Blood by </content>34.6 Center Automated count % L<content styleCode="Ital ics"> (41.0-53.0 %)</content> UNK 0.0 <content [facility] styleCode="Bold Destiny ">Nucleated Red Medical Blood Cell Center Count </content>0.00 KCUMM<content styleCode="Ital ics"> (0.0 KCUMM)</content > UNK 0 <content [facility] styleCode="Bold Destiny ">Nucleated Red Medical Blood Cell Center </content>0.0 /100<content styleCode="Ital ics"> (0 /100)</content> Platelet mean 8.0-11.0 <content [facility] volume [Entitic styleCode="Ba Dixon volume] in Blood ">Mean Platelet Medical by Automated Volume Center count </content>10.8 FL<content styleCode="Ital ics"> (8.0-11.0 FL)</content> ID Date Data Source GFR(Creatinine) 02/12/2019 05:45:00 PM EDT [facility] Name Value Range Interpretation Code Description Data Loyda rce(s) Supporting Document(s ) UNK > 60 <content [facility] styleCode="Bold"> Medical Cent er EGFR </content>71 GFR<content styleCode="Italic s"> (> 60 GFR)</content> UNK > 60 <content [facility] styleCode="Bold"> Medical Cent er EGFR </content>78 GFR<content styleCode="Italic s"> (> 60 GFR)</content> UNK > 60 <content [facility] styleCode="Bold"> Medical Cent er EGFR </content>96 GFR<content styleCode="Italic s"> (> 60 GFR)</content> UNK > 60 <content [facility] styleCode="Bold"> Medical Cent er EGFR </content>78 GFR<content styleCode="Italic s"> (> 60 GFR)</content> UNK > 60 <content [facility] styleCode="Bold"> Medical Cent er EGFR </content>96 GFR<content styleCode="Italic s"> (> 60 GFR)</content> UNK > 60 <content [facility] styleCode="Bold"> Medical Cent er EGFR </content>96 GFR<content styleCode="Italic s"> (> 60 GFR)</content> UNK > 60 <content [facility] styleCode="Bold"> Medical Cent er EGFR </content>78 GFR<content styleCode="Italic s"> (> 60 GFR)</content> UNK > 60 <content [facility] styleCode="Bold"> Medical Cent er EGFR </content>96 GFR<content styleCode="Italic s"> (> 60 GFR)</content> UNK > 60 <content [facility] styleCode="Bold"> Medical Cent er EGFR </content>96 GFR<content styleCode="Italic s"> (> 60 GFR)</content> ID Date Data Source [employer] 02/12/2019 05:45:00 PM EDT [facility] Name Value Range Interpretation Description Data Sup porting Code Source(s) Document(s ) Troponin 0-0.034 Above upper panic <content [facility] I.cardiac limits styleCode="Bold Destiny [Mass/volume ">Troponin I Medical ] in Serum </content><cont Center or Plasma ent styleCode="Bold ">0.049 NG/ML HH</content><co ntent styleCode="Ital ics"> (0-0.034 NG/ML)</content > Troponin 0-0.034 Above upper panic <content [facility] I.cardiac limits styleCode="Bold Destiny [Mass/volume ">Troponin I Medical ] in Serum </content><cont Center or Plasma ent styleCode="Bold ">0.058 NG/ML HH</content><co ntent styleCode="Ital ics"> (0-0.034 NG/ML)</content > Troponin < 0.034 Above upper panic <content [facility] I.cardiac limits styleCode="Bold Destiny [Mass/volume ">Troponin I Medical ] in Serum </content><cont Center or Plasma ent styleCode="Bold ">0.038 NG/ML HH</content><co ntent styleCode="Ital ics"> (< 0.034 NG/ML)</content > Troponin < 0.034 Above upper panic <content [facility] I.cardiac limits styleCode="Bold Desitny [Mass/volume ">Troponin I Medical ] in Serum </content><cont Center or Plasma ent styleCode="Bold ">0.041 NG/ML HH</content><co ntent styleCode="Ital ics"> (< 0.034 NG/ML)</content > Troponin < 0.034 Above upper panic <content [facility] I.cardiac limits styleCode="Bold Destiny [Mass/volume ">Troponin I Medical ] in Serum </content><cont Center or Plasma ent styleCode="Bold ">0.036 NG/ML HH</content><co ntent styleCode="Ital ics"> (< 0.034 NG/ML)</content > Troponin < 0.034 <content [facility] I.cardiac styleCode="Bold Destiny [Mass/volume ">Troponin I Medical ] in Serum </content>0.021 Center or Plasma NG/ML<content styleCode="Ital ics"> (< 0.034 NG/ML)</content > Troponin < 0.034 <content [facility] I.cardiac styleCode="Bold Destiny [Mass/volume ">Troponin I Medical ] in Serum </content>0.026 Center or Plasma NG/ML<content styleCode="Ital ics"> (< 0.034 NG/ML)</content > Troponin < 0.034 Above upper panic <content [facility] I.cardiac limits styleCode="Bold Destiny [Mass/volume ">Troponin I Medical ] in Serum </content><cont Center or Plasma ent styleCode="Bold ">0.104 NG/ML HH</content><co ntent styleCode="Ital ics"> (< 0.034 NG/ML)</content > Troponin < 0.034 Above upper panic <content [facility] I.cardiac limits styleCode="Bold Destiny [Mass/volume ">Troponin I Medical ] in Serum </content><cont Center or Plasma ent styleCode="Bold ">0.099 NG/ML HH</content><co ntent styleCode="Ital ics"> (< 0.034 NG/ML)</content > ID Date Data Source [facility] 02/12/2019 05:45:00 PM EDT [facility] Name Value Range Interpretation Description Data Sup porting Code Source(s) Document(s ) Sodium 137-145 <content [facility] [Moles/volume] in styleCode="Bold"> Roni phs Serum or Plasma Sodium Medical </content>137 Center MEQ/L<content styleCode="Italic s"> (137-145 MEQ/L)</content> Carbon dioxide, 22-30 Above high <content [facility] total normal styleCode="Bold"> Destiny [Moles/volume] in Carbon Dioxide Medical Serum or Plasma </content>32 Center MEQ/L H<content styleCode="Italic s"> (22-30 MEQ/L)</content> Chloride 98-107 <content [facility] [Moles/volume] in styleCode="Bold"> Roni phs Serum or Plasma Chloride Medical </content>99 Center MEQ/L<content styleCode="Italic s"> (98-107 MEQ/L)</content> Potassium 3.5-5.3 <content [facility] [Moles/volume] in styleCode="Bold"> Roni phs Serum or Plasma Potassium Medical </content>3.5 Center MEQ/L<content styleCode="Italic s"> (3.5-5.3 MEQ/L)</content> Glucose 74-106 Above high <content [facility] [Mass/volume] in normal styleCode="Bold"> Adi hs Serum or Plasma Glucose Medical </content>117 Center MG/DL H<content styleCode="Italic s"> (74-106 MG/DL)</content> UNK 9-20 <content [facility] styleCode="Bold"> Destiny BUN </content>12 Medical MG/DL<content Center styleCode="Italic s"> (9-20 MG/DL)</content> Creatinine 0.5-1.3 <content [facility] [Mass/volume] in styleCode="Bold"> Adi hs Serum or Plasma Creatinine Medical </content>1.3 Center MG/DL<content styleCode="Italic s"> (0.5-1.3 MG/DL)</content> Aspartate 17-59 Above high <content [facility] aminotransferase normal styleCode="Bold"> Adi hs [Enzymatic Aspartate Medical activity/volume] Aminotransferase Center in Serum or Plasma (AST) </content>95 IU/L H<content styleCode="Italic s"> (17-59 IU/L)</content> Calcium 8.4-10. <content [facility] [Mass/volume] in 2 styleCode="Bold"> Adi hs Serum or Plasma Calcium Medical </content>8.9 Center MG/DL<content styleCode="Italic s"> (8.4-10.2 MG/DL)</content> UNK > 60 <content [facility] styleCode="Bold"> Destiny EGFR </content>71 Medical GFR<content Center styleCode="Italic s"> (> 60 GFR)</content> Alkaline 38-126 Above high <content [facility] phosphatase normal styleCode="Bold"> Destiny [Enzymatic Alkaline Medical activity/volume] Phosphatase (ALP) Cente r in Serum or Plasma </content>127 IU/L H<content styleCode="Italic s"> (38-126 IU/L)</content> Alanine 7-50 Above high <content [facility] aminotransferase normal styleCode="Bold"> Adi hs [Enzymatic Alanine Medical activity/volume] Aminotransferase Center in Serum or Plasma (ALT) </content>83 IU/L H<content styleCode="Italic s"> (7-50 IU/L)</content> Bilirubin.total 0.2-1.3 Above high <content [facility] [Mass/volume] in normal styleCode="Bold"> Adi hs Serum or Plasma Bilirubin Total Medical </content>2.1 Center MG/DL H<content styleCode="Italic s"> (0.2-1.3 MG/DL)</content> Albumin 3.5-5.0 Below low <content [facility] [Mass/volume] in normal styleCode="Bold"> Adi hs Serum or Plasma Albumin Medical </content>3.3 Center G/DL L<content styleCode="Italic s"> (3.5-5.0 G/DL)</content> Sodium 137-145 <content [facility] [Moles/volume] in styleCode="Bold"> Roni phs Serum or Plasma Sodium Medical </content>137 Center MEQ/L<content styleCode="Italic s"> (137-145 MEQ/L)</content> Creatinine 0.5-1.3 <content [facility] [Mass/volume] in styleCode="Bold"> Adi hs Serum or Plasma Creatinine Medical </content>1.2 Center MG/DL<content styleCode="Italic s"> (0.5-1.3 MG/DL)</content> UNK 9-20 Above high <content [facility] normal styleCode="Bold"> Destiny BUN </content>22 Medical MG/DL H<content Center styleCode="Italic s"> (9-20 MG/DL)</content> Carbon dioxide, 22-30 <content [facility] total styleCode="Bold"> Destiny [Moles/volume] in Carbon Dioxide Medical Serum or Plasma </content>28 Center MEQ/L<content styleCode="Italic s"> (22-30 MEQ/L)</content> Chloride 98-107 <content [facility] [Moles/volume] in styleCode="Bold"> Roni phs Serum or Plasma Chloride Medical </content>103 Center MEQ/L<content styleCode="Italic s"> (98-107 MEQ/L)</content> Potassium 3.5-5.3 <content [facility] [Moles/volume] in styleCode="Bold"> Roni phs Serum or Plasma Potassium Medical </content>4.0 Center MEQ/L<content styleCode="Italic s"> (3.5-5.3 MEQ/L)</content> Aspartate 17-59 Above high <content [facility] aminotransferase normal styleCode="Bold"> Adi hs [Enzymatic Aspartate Medical activity/volume] Aminotransferase Center in Serum or Plasma (AST) </content>365 IU/L H<content styleCode="Italic s"> (17-59 IU/L)</content> UNK > 60 <content [facility] styleCode="Bold"> Destiny EGFR </content>78 Medical GFR<content Center styleCode="Italic s"> (> 60 GFR)</content> Calcium 8.4-10. Below low <content [facility] [Mass/volume] in 2 normal styleCode="Bold"> Adi hs Serum or Plasma Calcium Medical </content>7.7 Center MG/DL L<content styleCode="Italic s"> (8.4-10.2 MG/DL)</content> Glucose 74-106 Above high <content [facility] [Mass/volume] in normal styleCode="Bold"> Adi hs Serum or Plasma Glucose Medical </content>137 Center MG/DL H<content styleCode="Italic s"> (74-106 MG/DL)</content> Albumin 3.5-5.0 Below low <content [facility] [Mass/volume] in normal styleCode="Bold"> Adi hs Serum or Plasma Albumin Medical </content>2.8 Center G/DL L<content styleCode="Italic s"> (3.5-5.0 G/DL)</content> Bilirubin.total 0.2-1.3 Above high <content [facility] [Mass/volume] in normal styleCode="Bold"> Adi hs Serum or Plasma Bilirubin Total Medical </content>1.9 Center MG/DL H<content styleCode="Italic s"> (0.2-1.3 MG/DL)</content> Alkaline 38-126 Above high <content [facility] phosphatase normal styleCode="Bold"> Destiny [Enzymatic Alkaline Medical activity/volume] Phosphatase (ALP) Cente r in Serum or Plasma </content>141 IU/L H<content styleCode="Italic s"> (38-126 IU/L)</content> Alanine 7-50 Above high <content [facility] aminotransferase normal styleCode="Bold"> Adi hs [Enzymatic Alanine Medical activity/volume] Aminotransferase Center in Serum or Plasma (ALT) </content>134 IU/L H<content styleCode="Italic s"> (7-50 IU/L)</content> Creatinine 0.5-1.3 <content [facility] [Mass/volume] in styleCode="Bold"> Adi hs Serum or Plasma Creatinine Medical </content>1.0 Center MG/DL<content styleCode="Italic s"> (0.5-1.3 MG/DL)</content> UNK 9-20 <content [facility] styleCode="Bold"> Destiny BUN </content>17 Medical MG/DL<content Center styleCode="Italic s"> (9-20 MG/DL)</content> Carbon dioxide, 22-30 <content [facility] total styleCode="Bold"> Destiny [Moles/volume] in Carbon Dioxide Medical Serum or Plasma </content>28 Center MEQ/L<content styleCode="Italic s"> (22-30 MEQ/L)</content> Chloride 98-107 <content [facility] [Moles/volume] in styleCode="Bold"> Roni [facility] Serum or Plasma Chloride Medical </content>98 Center MEQ/L<content styleCode="Italic s"> (98-107 MEQ/L)</content> Potassium 3.5-5.3 <content [facility] [Moles/volume] in styleCode="Bold"> Orni [facility] Serum or Plasma Potassium Medical </content>3.8 Center MEQ/L<content styleCode="Italic s"> (3.5-5.3 MEQ/L)</content> Sodium 137-145 Below low <content [facility] [Moles/volume] in normal styleCode="Bold"> Roni [facility] Serum or Plasma Sodium Medical </content>135 Center MEQ/L L<content styleCode="Italic s"> (137-145 MEQ/L)</content> Alkaline 38-126 <content [facility] phosphatase styleCode="Bold"> Destiny [Enzymatic Alkaline Medical activity/volume] Phosphatase (ALP) Cente r in Serum or Plasma </content>66 IU/L<content styleCode="Italic s"> (38-126 IU/L)</content> Alanine 7-50 <content [facility] aminotransferase styleCode="Bold"> Adi hs [Enzymatic Alanine Medical activity/volume] Aminotransferase Center in Serum or Plasma (ALT) </content>18 IU/L<content styleCode="Italic s"> (7-50 IU/L)</content> Aspartate 17-59 <content [facility] aminotransferase styleCode="Bold"> Adi hs [Enzymatic Aspartate Medical activity/volume] Aminotransferase Center in Serum or Plasma (AST) </content>41 IU/L<content styleCode="Italic s"> (17-59 IU/L)</content> UNK > 60 <content [facility] styleCode="Bold"> Destiny EGFR </content>96 Medical GFR<content Center styleCode="Italic s"> (> 60 GFR)</content> Calcium 8.4-10. <content [facility] [Mass/volume] in 2 styleCode="Bold"> Adi hs Serum or Plasma Calcium Medical </content>8.6 Center MG/DL<content styleCode="Italic s"> (8.4-10.2 MG/DL)</content> Glucose 74-106 Above high <content [facility] [Mass/volume] in normal styleCode="Bold"> Adi hs Serum or Plasma Glucose Medical </content>144 Center MG/DL H<content styleCode="Italic s"> (74-106 MG/DL)</content> Albumin 3.5-5.0 <content [facility] [Mass/volume] in styleCode="Bold"> Adi hs Serum or Plasma Albumin Medical </content>3.7 Center G/DL<content styleCode="Italic s"> (3.5-5.0 G/DL)</content> Bilirubin.total 0.2-1.3 <content [facility] [Mass/volume] in styleCode="Bold"> Adi hs Serum or Plasma Bilirubin Total Medical </content>0.7 Center MG/DL<content styleCode="Italic s"> (0.2-1.3 MG/DL)</content> Sodium 137-145 Below low <content [facility] [Moles/volume] in normal styleCode="Bold"> Roni phs Serum or Plasma Sodium Medical </content>135 Center MEQ/L L<content styleCode="Italic s"> (137-145 MEQ/L)</content> Chloride 98-107 <content [facility] [Moles/volume] in styleCode="Bold"> Roni phs Serum or Plasma Chloride Medical </content>99 Center MEQ/L<content styleCode="Italic s"> (98-107 MEQ/L)</content> Potassium 3.5-5.3 <content [facility] [Moles/volume] in styleCode="Bold"> Roni phs Serum or Plasma Potassium Medical </content>4.0 Center MEQ/L<content styleCode="Italic s"> (3.5-5.3 MEQ/L)</content> Glucose 74-106 Above high <content [facility] [Mass/volume] in normal styleCode="Bold"> Adi hs Serum or Plasma Glucose Medical </content>124 Center MG/DL H<content styleCode="Italic s"> (74-106 MG/DL)</content> Creatinine 0.5-1.3 <content [facility] [Mass/volume] in styleCode="Bold"> Adi hs Serum or Plasma Creatinine Medical </content>1.2 Center MG/DL<content styleCode="Italic s"> (0.5-1.3 MG/DL)</content> UNK 9-20 Above high <content [facility] normal styleCode="Bold"> Destiny BUN </content>26 Medical MG/DL H<content Center styleCode="Italic s"> (9-20 MG/DL)</content> Carbon dioxide, 22-30 <content [facility] total styleCode="Bold"> Destiny [Moles/volume] in Carbon Dioxide Medical Serum or Plasma </content>28 Center MEQ/L<content styleCode="Italic s"> (22-30 MEQ/L)</content> Aspartate 17-59 <content [facility] aminotransferase styleCode="Bold"> Adi hs [Enzymatic Aspartate Medical activity/volume] Aminotransferase Center in Serum or Plasma (AST) </content>38 IU/L<content styleCode="Italic s"> (17-59 IU/L)</content> UNK > 60 <content Saint styleCode="Bold"> Destiny EGFR </content>78 Medical GFR<content Center styleCode="Italic s"> (> 60 GFR)</content> Calcium 8.4-10. <content [facility] [Mass/volume] in 2 styleCode="Bold"> Adi hs Serum or Plasma Calcium Medical </content>9.4 Center MG/DL<content styleCode="Italic s"> (8.4-10.2 MG/DL)</content> Albumin 3.5-5.0 <content [facility] [Mass/volume] in styleCode="Bold"> Adi hs Serum or Plasma Albumin Medical </content>3.9 Center G/DL<content styleCode="Italic s"> (3.5-5.0 G/DL)</content> Bilirubin.total 0.2-1.3 <content [facility] [Mass/volume] in styleCode="Bold"> Adi hs Serum or Plasma Bilirubin Total Medical </content>0.6 Center MG/DL<content styleCode="Italic s"> (0.2-1.3 MG/DL)</content> Alkaline 38-126 <content [facility] phosphatase styleCode="Bold"> Destiny [Enzymatic Alkaline Medical activity/volume] Phosphatase (ALP) Cente r in Serum or Plasma </content>67 IU/L<content styleCode="Italic s"> (38-126 IU/L)</content> Alanine 7-50 <content [facility] aminotransferase styleCode="Bold"> Adi hs [Enzymatic Alanine Medical activity/volume] Aminotransferase Center in Serum or Plasma (ALT) </content>22 IU/L<content styleCode="Italic s"> (7-50 IU/L)</content> Sodium 137-145 <content [facility] [Moles/volume] in styleCode="Bold"> Roni [facility] Serum or Plasma Sodium Medical </content>144 Center MEQ/L<content styleCode="Italic s"> (137-145 MEQ/L)</content> Creatinine 0.5-1.3 <content [facility] [Mass/volume] in styleCode="Bold"> Adi hs Serum or Plasma Creatinine Medical </content>1.0 Center MG/DL<content styleCode="Italic s"> (0.5-1.3 MG/DL)</content> UNK 9-20 <content Saint styleCode="Bold"> Destiny BUN </content>9 Medical MG/DL<content Center styleCode="Italic s"> (9-20 MG/DL)</content> Carbon dioxide, 22-30 <content [facility] total styleCode="Bold"> Destiny [Moles/volume] in Carbon Dioxide Medical Serum or Plasma </content>23 Center MEQ/L<content styleCode="Italic s"> (22-30 MEQ/L)</content> Chloride 98-107 <content [facility] [Moles/volume] in styleCode="Bold"> Roni phs Serum or Plasma Chloride Medical </content>107 Center MEQ/L<content styleCode="Italic s"> (98-107 MEQ/L)</content> Potassium 3.5-5.3 <content [facility] [Moles/volume] in styleCode="Bold"> Roni phs Serum or Plasma Potassium Medical </content>3.9 Center MEQ/L<content styleCode="Italic s"> (3.5-5.3 MEQ/L)</content> Aspartate 17-59 <content [facility] aminotransferase styleCode="Bold"> Adi hs [Enzymatic Aspartate Medical activity/volume] Aminotransferase Center in Serum or Plasma (AST) </content>52 IU/L<content styleCode="Italic s"> (17-59 IU/L)</content> UNK > 60 <content Saint styleCode="Bold"> Destiny EGFR </content>96 Medical GFR<content Center styleCode="Italic s"> (> 60 GFR)</content> Calcium 8.4-10. Below low <content [facility] [Mass/volume] in 2 normal styleCode="Bold"> Adi hs Serum or Plasma Calcium Medical </content>8.0 Center MG/DL L<content styleCode="Italic s"> (8.4-10.2 MG/DL)</content> Glucose 74-106 Above high <content [facility] [Mass/volume] in normal styleCode="Bold"> Adi hs Serum or Plasma Glucose Medical </content>137 Center MG/DL H<content styleCode="Italic s"> (74-106 MG/DL)</content> Albumin 3.5-5.0 <content [facility] [Mass/volume] in styleCode="Bold"> Adi hs Serum or Plasma Albumin Medical </content>3.6 Center G/DL<content styleCode="Italic s"> (3.5-5.0 G/DL)</content> Bilirubin.total 0.2-1.3 <content [facility] [Mass/volume] in styleCode="Bold"> Adi hs Serum or Plasma Bilirubin Total Medical </content>0.4 Center MG/DL<content styleCode="Italic s"> (0.2-1.3 MG/DL)</content> Alkaline 38-126 <content [facility] phosphatase styleCode="Bold"> Destiny [Enzymatic Alkaline Medical activity/volume] Phosphatase (ALP) Cente r in Serum or Plasma </content>90 IU/L<content styleCode="Italic s"> (38-126 IU/L)</content> Alanine 7-50 <content [facility] aminotransferase styleCode="Bold"> Adi hs [Enzymatic Alanine Medical activity/volume] Aminotransferase Center in Serum or Plasma (ALT) </content>18 IU/L<content styleCode="Italic s"> (7-50 IU/L)</content> Chloride 98-107 <content [facility] [Moles/volume] in styleCode="Bold"> Roni [facility] Serum or Plasma Chloride Medical </content>107 Center MEQ/L<content styleCode="Italic s"> (98-107 MEQ/L)</content> Potassium 3.5-5.3 <content [facility] [Moles/volume] in styleCode="Bold"> Roni [facility] Serum or Plasma Potassium Medical </content>4.0 Center MEQ/L<content styleCode="Italic s"> (3.5-5.3 MEQ/L)</content> Sodium 137-145 <content [facility] [Moles/volume] in styleCode="Bold"> Roni [facility] Serum or Plasma Sodium Medical </content>138 Center MEQ/L<content styleCode="Italic s"> (137-145 MEQ/L)</content> Calcium 8.4-10. <content [facility] [Mass/volume] in 2 styleCode="Bold"> Adi hs Serum or Plasma Calcium Medical </content>9.1 Center MG/DL<content styleCode="Italic s"> (8.4-10.2 MG/DL)</content> Glucose 74-106 <content [facility] [Mass/volume] in styleCode="Bold"> Adi hs Serum or Plasma Glucose Medical </content>104 Center MG/DL<content styleCode="Italic s"> (74-106 MG/DL)</content> Creatinine 0.5-1.3 <content [facility] [Mass/volume] in styleCode="Bold"> Adi hs Serum or Plasma Creatinine Medical </content>1.0 Center MG/DL<content styleCode="Italic s"> (0.5-1.3 MG/DL)</content> UNK 9-20 <content Saint styleCode="Bold"> Destiny BUN </content>20 Medical MG/DL<content Center styleCode="Italic s"> (9-20 MG/DL)</content> Carbon dioxide, 22-30 <content [facility] total styleCode="Bold"> Destiny [Moles/volume] in Carbon Dioxide Medical Serum or Plasma </content>28 Center MEQ/L<content styleCode="Italic s"> (22-30 MEQ/L)</content> Bilirubin.total 0.2-1.3 <content [facility] [Mass/volume] in styleCode="Bold"> Adi hs Serum or Plasma Bilirubin Total Medical </content>0.7 Center MG/DL<content styleCode="Italic s"> (0.2-1.3 MG/DL)</content> Alkaline 38-126 <content [facility] phosphatase styleCode="Bold"> Destiny [Enzymatic Alkaline Medical activity/volume] Phosphatase (ALP) Cente r in Serum or Plasma </content>52 IU/L<content styleCode="Italic s"> (38-126 IU/L)</content> Alanine 7-50 <content [facility] aminotransferase styleCode="Bold"> Adi hs [Enzymatic Alanine Medical activity/volume] Aminotransferase Center in Serum or Plasma (ALT) </content>13 IU/L<content styleCode="Italic s"> (7-50 IU/L)</content> Aspartate 17-59 Below low <content [facility] aminotransferase normal styleCode="Bold"> Adi hs [Enzymatic Aspartate Medical activity/volume] Aminotransferase Center in Serum or Plasma (AST) </content>16 IU/L L<content styleCode="Italic s"> (17-59 IU/L)</content> UNK > 60 <content Saint styleCode="Bold"> Destiny EGFR </content>96 Medical GFR<content Center styleCode="Italic s"> (> 60 GFR)</content> Albumin 3.5-5.0 Below low <content [facility] [Mass/volume] in normal styleCode="Bold"> Adi hs Serum or Plasma Albumin Medical </content>3.0 Center G/DL L<content styleCode="Italic s"> (3.5-5.0 G/DL)</content> Sodium 137-145 <content [facility] [Moles/volume] in styleCode="Bold"> Roni phs Serum or Plasma Sodium Medical </content>144 Center MEQ/L<content styleCode="Italic s"> (137-145 MEQ/L)</content> Glucose 74-106 <content [facility] [Mass/volume] in styleCode="Bold"> Adi hs Serum or Plasma Glucose Medical </content>93 Center MG/DL<content styleCode="Italic s"> (74-106 MG/DL)</content> Creatinine 0.5-1.3 <content [facility] [Mass/volume] in styleCode="Bold"> Adi hs Serum or Plasma Creatinine Medical </content>1.2 Center MG/DL<content styleCode="Italic s"> (0.5-1.3 MG/DL)</content> UNK 9-20 <content Saint styleCode="Bold"> Destiny BUN </content>17 Medical MG/DL<content Center styleCode="Italic s"> (9-20 MG/DL)</content> Carbon dioxide, 22-30 <content [facility] total styleCode="Bold"> Destiny [Moles/volume] in Carbon Dioxide Medical Serum or Plasma </content>23 Center MEQ/L<content styleCode="Italic s"> (22-30 MEQ/L)</content> Chloride 98-107 Above high <content Saint [Moles/volume] in normal styleCode="Bold"> Roni phs Serum or Plasma Chloride Medical </content>110 Center MEQ/L H<content styleCode="Italic s"> (98-107 MEQ/L)</content> Potassium 3.5-5.3 <content [facility] [Moles/volume] in styleCode="Bold"> Roni phs Serum or Plasma Potassium Medical </content>4.2 Center MEQ/L<content styleCode="Italic s"> (3.5-5.3 MEQ/L)</content> UNK > 60 <content Saint styleCode="Bold"> Destiny EGFR </content>78 Medical GFR<content Center styleCode="Italic s"> (> 60 GFR)</content> Calcium 8.4-10. <content [facility] [Mass/volume] in 2 styleCode="Bold"> Adi hs Serum or Plasma Calcium Medical </content>8.8 Center MG/DL<content styleCode="Italic s"> (8.4-10.2 MG/DL)</content> UNK 9-20 Above high <content [facility] normal styleCode="Bold"> Destiny BUN </content>21 Medical MG/DL H<content Center styleCode="Italic s"> (9-20 MG/DL)</content> Carbon dioxide, 22-30 <content Saint total styleCode="Bold"> Destiny [Moles/volume] in Carbon Dioxide Medical Serum or Plasma </content>23 Center MEQ/L<content styleCode="Italic s"> (22-30 MEQ/L)</content> Chloride 98-107 Above high <content Saint [Moles/volume] in normal styleCode="Bold"> Roni phs Serum or Plasma Chloride Medical </content>109 Center MEQ/L H<content styleCode="Italic s"> (98-107 MEQ/L)</content> Potassium 3.5-5.3 <content [facility] [Moles/volume] in styleCode="Bold"> Roni phs Serum or Plasma Potassium Medical </content>5.1 Center MEQ/L<content styleCode="Italic s"> (3.5-5.3 MEQ/L)</content> Sodium 137-145 <content [facility] [Moles/volume] in styleCode="Bold"> Roni phs Serum or Plasma Sodium Medical </content>143 Center MEQ/L<content styleCode="Italic s"> (137-145 MEQ/L)</content> UNK > 60 <content Saint styleCode="Bold"> Destiny EGFR </content>96 Medical GFR<content Center styleCode="Italic s"> (> 60 GFR)</content> Calcium 8.4-10. <content [facility] [Mass/volume] in 2 styleCode="Bold"> Dai hs Serum or Plasma Calcium Medical </content>8.5 Center MG/DL<content styleCode="Italic s"> (8.4-10.2 MG/DL)</content> Glucose 74-106 <content Saint [Mass/volume] in styleCode="Bold"> Adi hs Serum or Plasma Glucose Medical </content>80 Center MG/DL<content styleCode="Italic s"> (74-106 MG/DL)</content> Creatinine 0.5-1.3 <content [facility] [Mass/volume] in styleCode="Bold"> Adi hs Serum or Plasma Creatinine Medical </content>1.0 Center MG/DL<content styleCode="Italic s"> (0.5-1.3 MG/DL)</content> Sodium 137-145 <content [facility] [Moles/volume] in styleCode="Bold"> Roni phs Serum or Plasma Sodium Medical </content>142 Center MEQ/L<content styleCode="Italic s"> (137-145 MEQ/L)</content> Creatinine 0.5-1.3 <content [facility] [Mass/volume] in styleCode="Bold"> Adi hs Serum or Plasma Creatinine Medical </content>1.0 Center MG/DL<content styleCode="Italic s"> (0.5-1.3 MG/DL)</content> UNK 9-20 <content Saint styleCode="Bold"> Destiny BUN </content>20 Medical MG/DL<content Center styleCode="Italic s"> (9-20 MG/DL)</content> Carbon dioxide, 22-30 Below low <content [facility] total normal styleCode="Bold"> Destiny [Moles/volume] in Carbon Dioxide Medical Serum or Plasma </content>21 Center MEQ/L L<content styleCode="Italic s"> (22-30 MEQ/L)</content> Chloride 98-107 Above high <content [facility] [Moles/volume] in normal styleCode="Bold"> Roni phs Serum or Plasma Chloride Medical </content>111 Center MEQ/L H<content styleCode="Italic s"> (98-107 MEQ/L)</content> Potassium 3.5-5.3 <content [facility] [Moles/volume] in styleCode="Bold"> Roni phs Serum or Plasma Potassium Medical </content>4.7 Center MEQ/L<content styleCode="Italic s"> (3.5-5.3 MEQ/L)</content> UNK > 60 <content Saint styleCode="Bold"> [facility] EGFR </content>96 Medical GFR<content Center styleCode="Italic s"> (> 60 GFR)</content> Calcium 8.4-10. Below low <content [facility] [Mass/volume] in 2 normal styleCode="Bold"> Adi hs Serum or Plasma Calcium Medical </content>8.3 Center MG/DL L<content styleCode="Italic s"> (8.4-10.2 MG/DL)</content> Glucose 74-106 <content [facility] [Mass/volume] in styleCode="Bold"> Adi hs Serum or Plasma Glucose Medical </content>92 Center MG/DL<content styleCode="Italic s"> (74-106 MG/DL)</content> ID Date Data Source Liver 01/12/2019 06:45:00 AM EDT [facility] Profile.[id number] Name Value Range Interpretation Description Data Sup porting Code Source(s) Document(s ) Alanine 7-50 <content [facility] aminotransferase styleCode="Bold"> Adi hs [Enzymatic Alanine Medical activity/volume] Aminotransferase Center in Serum or Plasma (ALT) </content>13 IU/L<content styleCode="Italic s"> (7-50 IU/L)</content> Aspartate 17-59 Below low <content [facility] aminotransferase normal styleCode="Bold"> Adi hs [Enzymatic Aspartate Medical activity/volume] Aminotransferase Center in Serum or Plasma (AST) </content>16 IU/L L<content styleCode="Italic s"> (17-59 IU/L)</content> Alkaline 38-126 <content [facility] phosphatase styleCode="Bold"> Destiny [Enzymatic Alkaline Medical activity/volume] Phosphatase (ALP) Cente r in Serum or Plasma </content>52 IU/L<content styleCode="Italic s"> (38-126 IU/L)</content> Bilirubin.total 0.2-1.3 <content [facility] [Mass/volume] in styleCode="Bold"> Adi hs Serum or Plasma Bilirubin Total Medical </content>0.7 Center MG/DL<content styleCode="Italic s"> (0.2-1.3 MG/DL)</content> Albumin 3.5-5.0 Below low <content [facility] [Mass/volume] in normal styleCode="Bold"> Adi hs Serum or Plasma Albumin Medical </content>3.0 Center G/DL L<content styleCode="Italic s"> (3.5-5.0 G/DL)</content> ID Date Data Source Coagulation 01/12/2019 06:45:00 AM [facility] Rout.[id number] EDT Name Value Range Interpretation Description Data Sup porting Code Source(s) Document(s ) aPTT in 25.1-36. <content [facility] Platelet poor 5 styleCode="Bold" Destiny plasma by >Partial Medical Coagulation Thromboplastin Center assay Time </content>28.8 SEC<content styleCode="Itali cs"> (25.1-36.5 SEC)</content> INR in 0.80-1.2 Above high normal <content Saint Platelet poor 0 styleCode="Bold" Destiny plasma by >INR Medical Coagulation </content>1.31 # Center assay H<content styleCode="Itali cs"> (0.80-1.20 #)</content> UNK 9.0-13.0 Above high normal <content Saint styleCode="Bold" Destiny >Protime Medical </content>14.9 Center SEC H<content styleCode="Itali cs"> (9.0-13.0 SEC)</content> ID Date Data Source ChemistrySpecia.[id number] 01/12/2019 06:45:00 AM EDT [facility] 0-0400 Name Value Range Interpretation Code Description Data Supporting Source(s) Document(s ) Folate > 3.0 <content [facility] Destiny [Mass/volum styleCode="Bold Medical e] in Serum ">Folic Acid Center or Plasma </content>15.1 NG/ML<content styleCode="Ital ics"> (> 3.0 NG/ML)</content > ID Date Data Source CHMROUTINECCDA.[id number] 01/12/2019 06:45:00 AM EDT [facility] -0400 Name Value Range Interpretation Description Data Sup porting Code Source(s) Document(s ) Magnesium 1.6-2.3 <content Saint [Mass/volume] styleCode="Kirstin Destiny in Serum or d">Magnesium Medical Plasma </content>1.9 Center MG/DL<content styleCode="Jody lics"> (1.6-2.3 MG/DL)</conten t> Folate > 3.0 <content Saint [Mass/volume] styleCode="Kirstin Destiny in Serum or d">Folic Acid Medical Plasma </content>15.1 Center NG/ML<content styleCode="Jody lics"> (> 3.0 NG/ML)</conten t> UNK 2.3-3.5 <content Saint styleCode="Kirstin Destiny d">Globulin Medical </content>2.3 Center G/DL<content styleCode="Jody lics"> (2.3-3.5 G/DL)</content > UNK >= 1.0 <content Saint styleCode="Kirstin Destiny d">AG Ratio Medical </content>1.3 Center <content styleCode="Jody lics"> (>= 1.0 )</content> Phosphate 2.5-4.5 <content Saint [Mass/volume] styleCode="Kirstin Destiny in Serum or d">Phosphorus Medical Plasma </content>2.5 Center MG/DL<content styleCode="Jody lics"> (2.5-4.5 MG/DL)</conten t> Protein 6.3-8.2 Below low normal <content Saint [Mass/volume] styleCode="Kirstin Destiny in Serum or d">Total Medical Plasma Protein Center </content>5.3 G/DL L<content styleCode="Jody lics"> (6.3-8.2 G/DL)</content > ID Date Data Source Liver Profile 01/12/2019 06:45:00 AM EDT [facility] Name Value Range Interpretation Description Data Sup porting Code Source(s) Document(s ) Alkaline 38-126 Above high <content [facility] phosphatase normal styleCode="Bold"> Destiny [Enzymatic Alkaline Medical activity/volume] Phosphatase (ALP) Cente r in Serum or Plasma </content>127 IU/L H<content styleCode="Italic s"> (38-126 IU/L)</content> Aspartate 17-59 Above high <content [facility] aminotransferase normal styleCode="Bold"> Adi hs [Enzymatic Aspartate Medical activity/volume] Aminotransferase Center in Serum or Plasma (AST) </content>95 IU/L H<content styleCode="Italic s"> (17-59 IU/L)</content> Alanine 7-50 Above high <content [facility] aminotransferase normal styleCode="Bold"> Adi hs [Enzymatic Alanine Medical activity/volume] Aminotransferase Center in Serum or Plasma (ALT) </content>83 IU/L H<content styleCode="Italic s"> (7-50 IU/L)</content> Albumin 3.5-5.0 Below low <content [facility] [Mass/volume] in normal styleCode="Bold"> Adi hs Serum or Plasma Albumin Medical </content>3.3 Center G/DL L<content styleCode="Italic s"> (3.5-5.0 G/DL)</content> Bilirubin.total 0.2-1.3 Above high <content [facility] [Mass/volume] in normal styleCode="Bold"> Adi hs Serum or Plasma Bilirubin Total Medical </content>2.1 Center MG/DL H<content styleCode="Italic s"> (0.2-1.3 MG/DL)</content> Alkaline 38-126 Above high <content [facility] phosphatase normal styleCode="Bold"> Destiny [Enzymatic Alkaline Medical activity/volume] Phosphatase (ALP) Cente r in Serum or Plasma </content>141 IU/L H<content styleCode="Italic s"> (38-126 IU/L)</content> Alanine 7-50 Above high <content [facility] aminotransferase normal styleCode="Bold"> Adi hs [Enzymatic Alanine Medical activity/volume] Aminotransferase Center in Serum or Plasma (ALT) </content>134 IU/L H<content styleCode="Italic s"> (7-50 IU/L)</content> Aspartate 17-59 Above high <content [facility] aminotransferase normal styleCode="Bold"> Adi hs [Enzymatic Aspartate Medical activity/volume] Aminotransferase Center in Serum or Plasma (AST) </content>365 IU/L H<content styleCode="Italic s"> (17-59 IU/L)</content> Albumin 3.5-5.0 Below low <content [facility] [Mass/volume] in normal styleCode="Bold"> Adi hs Serum or Plasma Albumin Medical </content>2.8 Center G/DL L<content styleCode="Italic s"> (3.5-5.0 G/DL)</content> Bilirubin.total 0.2-1.3 Above high <content [facility] [Mass/volume] in normal styleCode="Bold"> Adi hs Serum or Plasma Bilirubin Total Medical </content>1.9 Center MG/DL H<content styleCode="Italic s"> (0.2-1.3 MG/DL)</content> Albumin 3.5-5.0 <content [facility] [Mass/volume] in styleCode="Bold"> Adi hs Serum or Plasma Albumin Medical </content>3.7 Center G/DL<content styleCode="Italic s"> (3.5-5.0 G/DL)</content> Bilirubin.total 0.2-1.3 <content [facility] [Mass/volume] in styleCode="Bold"> Adi hs Serum or Plasma Bilirubin Total Medical </content>0.7 Center MG/DL<content styleCode="Italic s"> (0.2-1.3 MG/DL)</content> Alkaline 38-126 <content [facility] phosphatase styleCode="Bold"> Destiny [Enzymatic Alkaline Medical activity/volume] Phosphatase (ALP) Cente r in Serum or Plasma </content>66 IU/L<content styleCode="Italic s"> (38-126 IU/L)</content> Alanine 7-50 <content [facility] aminotransferase styleCode="Bold"> Adi hs [Enzymatic Alanine Medical activity/volume] Aminotransferase Center in Serum or Plasma (ALT) </content>18 IU/L<content styleCode="Italic s"> (7-50 IU/L)</content> Aspartate 17-59 <content [facility] aminotransferase styleCode="Bold"> Adi hs [Enzymatic Aspartate Medical activity/volume] Aminotransferase Center in Serum or Plasma (AST) </content>41 IU/L<content styleCode="Italic s"> (17-59 IU/L)</content> Alanine 7-50 <content [facility] aminotransferase styleCode="Bold"> Adi hs [Enzymatic Alanine Medical activity/volume] Aminotransferase Center in Serum or Plasma (ALT) </content>22 IU/L<content styleCode="Italic s"> (7-50 IU/L)</content> Aspartate 17-59 <content [facility] aminotransferase styleCode="Bold"> Adi hs [Enzymatic Aspartate Medical activity/volume] Aminotransferase Center in Serum or Plasma (AST) </content>38 IU/L<content styleCode="Italic s"> (17-59 IU/L)</content> Bilirubin.total 0.2-1.3 <content [facility] [Mass/volume] in styleCode="Bold"> Adi hs Serum or Plasma Bilirubin Total Medical </content>0.6 Center MG/DL<content styleCode="Italic s"> (0.2-1.3 MG/DL)</content> Alkaline 38-126 <content [facility] phosphatase styleCode="Bold"> Destiny [Enzymatic Alkaline Medical activity/volume] Phosphatase (ALP) Cente r in Serum or Plasma </content>67 IU/L<content styleCode="Italic s"> (38-126 IU/L)</content> Albumin 3.5-5.0 <content [facility] [Mass/volume] in styleCode="Bold"> Adi hs Serum or Plasma Albumin Medical </content>3.9 Center G/DL<content styleCode="Italic s"> (3.5-5.0 G/DL)</content> Bilirubin.total 0.2-1.3 <content [facility] [Mass/volume] in styleCode="Bold"> Adi hs Serum or Plasma Bilirubin Total Medical </content>0.4 Center MG/DL<content styleCode="Italic s"> (0.2-1.3 MG/DL)</content> Alkaline 38-126 <content [facility] phosphatase styleCode="Bold"> Destiny [Enzymatic Alkaline Medical activity/volume] Phosphatase (ALP) Cente r in Serum or Plasma </content>90 IU/L<content styleCode="Italic s"> (38-126 IU/L)</content> Alanine 7-50 <content [facility] aminotransferase styleCode="Bold"> Adi hs [Enzymatic Alanine Medical activity/volume] Aminotransferase Center in Serum or Plasma (ALT) </content>18 IU/L<content styleCode="Italic s"> (7-50 IU/L)</content> Aspartate 17-59 <content [facility] aminotransferase styleCode="Bold"> Adi hs [Enzymatic Aspartate Medical activity/volume] Aminotransferase Center in Serum or Plasma (AST) </content>52 IU/L<content styleCode="Italic s"> (17-59 IU/L)</content> Albumin 3.5-5.0 <content [facility] [Mass/volume] in styleCode="Bold"> Adi hs Serum or Plasma Albumin Medical </content>3.6 Center G/DL<content styleCode="Italic s"> (3.5-5.0 G/DL)</content> Alkaline 38-126 <content [facility] phosphatase styleCode="Bold"> Destiny [Enzymatic Alkaline Medical activity/volume] Phosphatase (ALP) Cente r in Serum or Plasma </content>52 IU/L<content styleCode="Italic s"> (38-126 IU/L)</content> Alanine 7-50 <content [facility] aminotransferase styleCode="Bold"> Adi hs [Enzymatic Alanine Medical activity/volume] Aminotransferase Center in Serum or Plasma (ALT) </content>13 IU/L<content styleCode="Italic s"> (7-50 IU/L)</content> Aspartate 17-59 Below low <content [facility] aminotransferase normal styleCode="Bold"> Adi hs [Enzymatic Aspartate Medical activity/volume] Aminotransferase Center in Serum or Plasma (AST) </content>16 IU/L L<content styleCode="Italic s"> (17-59 IU/L)</content> Albumin 3.5-5.0 Below low <content [facility] [Mass/volume] in normal styleCode="Bold"> Adi hs Serum or Plasma Albumin Medical </content>3.0 Center G/DL L<content styleCode="Italic s"> (3.5-5.0 G/DL)</content> Bilirubin.total 0.2-1.3 <content [facility] [Mass/volume] in styleCode="Bold"> Adi hs Serum or Plasma Bilirubin Total Medical </content>0.7 Center MG/DL<content styleCode="Italic s"> (0.2-1.3 MG/DL)</content> ID Date Data Source ChemistrySpecia 01/12/2019 06:45:00 AM EDT [facility] Name Value Range Interpretation Description Data Sup porting Code Source(s) Document(s ) Cobalamin 239-931 <content [facility] (Vitamin B12) styleCode="Kirstin Destiny [Mass/volume] d">Vitamin B12 Medical in Serum or </content>416 Center Plasma PG/ML<content styleCode="Jody lics"> (239-931 PG/ML)</conten t> Folate > 3.0 <content [facility] [Mass/volume] styleCode="Kirstin Destiny in Serum or d">Folic Acid Medical Plasma </content>17.9 Center NG/ML<content styleCode="Jody lics"> (> 3.0 NG/ML)</conten t> Folate > 3.0 <content [facility] [Mass/volume] styleCode="Kirstin Destiny in Serum or d">Folic Acid Medical Plasma </content>15.1 Center NG/ML<content styleCode="Jody lics"> (> 3.0 NG/ML)</conten t> ID Date Data Source CHMROUTINECCDA 01/12/2019 06:45:00 AM EDT [facility] Name Value Range Interpretation Description Data Sup porting Code Source(s) Document(s ) Magnesium 1.6-2.3 Below low normal <content [facility] [Mass/volume] styleCode="Kirstin Destiny in Serum or d">Magnesium Medical Plasma </content>1.4 Center MG/DL L<content styleCode="Jody lics"> (1.6-2.3 MG/DL)</conten t> UNK >= 1.0 <content [facility] styleCode="Kirstin Destiny d">AG Ratio Medical </content>1.4 Center NM<content styleCode="Jody lics"> (>= 1.0 NM)</content> Phosphate 2.5-4.5 <content [facility] [Mass/volume] styleCode="Kirstin Destiny in Serum or d">Phosphorus Medical Plasma </content>3.1 Center MG/DL<content styleCode="Jody lics"> (2.5-4.5 MG/DL)</conten t> UNK 2.3-3.5 <content [facility] styleCode="Kirstin Destiny d">Globulin Medical </content>2.3 Center G/DL<content styleCode="Jody lics"> (2.3-3.5 G/DL)</content > Protein 6.3-8.2 Below low normal <content [facility] [Mass/volume] styleCode="Kirstin Destiny in Serum or d">Total Medical Plasma Protein Center </content>5.6 G/DL L<content styleCode="Jody lics"> (6.3-8.2 G/DL)</content > UNK >= 1.0 <content [facility] styleCode="Kirstin Destiny d">AG Ratio Medical </content>1.2 Center NM<content styleCode="Jody lics"> (>= 1.0 NM)</content> Phosphate 2.5-4.5 <content [facility] [Mass/volume] styleCode="Kirstin Destiny in Serum or d">Phosphorus Medical Plasma </content>3.4 Center MG/DL<content styleCode="Jody lics"> (2.5-4.5 MG/DL)</conten t> Magnesium 1.6-2.3 Below low normal <content [facility] [Mass/volume] styleCode="Kirstin Destiny in Serum or d">Magnesium Medical Plasma </content>1.4 Center MG/DL L<content styleCode="Jody lics"> (1.6-2.3 MG/DL)</conten t> Lipase 23-300 <content [facility] [Enzymatic styleCode="Kirstin Destiny activity/volu d">Lipase Medical me] in Serum </content>127 Center or Plasma IU/L<content styleCode="Jody lics"> (23-300 IU/L)</content > UNK 2.3-3.5 <content [facility] styleCode="Kirstin Destiny d">Globulin Medical </content>2.3 Center G/DL<content styleCode="Jody lics"> (2.3-3.5 G/DL)</content > UNK 30-110 <content [facility] styleCode="Kirstin Destiny d">Amylase Medical </content>79 Center IU/L<content styleCode="Jody lics"> (30-110 IU/L)</content > Protein 6.3-8.2 Below low normal <content [facility] [Mass/volume] styleCode="Kirstin Destiny in Serum or d">Total Medical Plasma Protein Center </content>5.1 G/DL L<content styleCode="Jody lics"> (6.3-8.2 G/DL)</content > UNK >= 1.0 <content [facility] styleCode="Kirstin Destiny d">AG Ratio Medical </content>1.5 Center <content styleCode="Jody lics"> (>= 1.0 )</content> Protein 6.3-8.2 Below low normal <content [facility] [Mass/volume] styleCode="Kirstin Destiny in Serum or d">Total Medical Plasma Protein Center </content>6.1 G/DL L<content styleCode="Jody lics"> (6.3-8.2 G/DL)</content > Phosphate 2.5-4.5 <content [facility] [Mass/volume] styleCode="Kirstin Destiny in Serum or d">Phosphorus Medical Plasma </content>3.5 Center MG/DL<content styleCode="Jody lics"> (2.5-4.5 MG/DL)</conten t> Magnesium 1.6-2.3 Below low normal <content [facility] [Mass/volume] styleCode="Kirstin Destiny in Serum or d">Magnesium Medical Plasma </content>1.3 Center MG/DL L<content styleCode="Jody lics"> (1.6-2.3 MG/DL)</conten t> UNK 2.3-3.5 <content [facility] styleCode="Kirstin Destiny d">Globulin Medical </content>2.4 Center G/DL<content styleCode="Jody lics"> (2.3-3.5 G/DL)</content > UNK >= 1.0 <content [facility] styleCode="Kirstin Destiny d">AG Ratio Medical </content>1.6 Center <content styleCode="Jody lics"> (>= 1.0 )</content> Protein 6.3-8.2 <content [facility] [Mass/volume] styleCode="Kirstin Destiny in Serum or d">Total Medical Plasma Protein Center </content>6.3 G/DL<content styleCode="Jody lics"> (6.3-8.2 G/DL)</content > Phosphate 2.5-4.5 <content [facility] [Mass/volume] styleCode="Kirstin Destiny in Serum or d">Phosphorus Medical Plasma </content>3.8 Center MG/DL<content styleCode="Jody lics"> (2.5-4.5 MG/DL)</conten t> Magnesium 1.6-2.3 <content [facility] [Mass/volume] styleCode="Kirstin Destiny in Serum or d">Magnesium Medical Plasma </content>2.0 Center MG/DL<content styleCode="Jody lics"> (1.6-2.3 MG/DL)</conten t> UNK 2.3-3.5 <content [facility] styleCode="Kirstin Destiny d">Globulin Medical </content>2.4 Center G/DL<content styleCode="Jody lics"> (2.3-3.5 G/DL)</content > Lactate 0.7-2.0 Above upper panic <content [facility] [Mass/volume] limits styleCode="Kirstin Destiny in Serum or d">Lactic Acid Medical Plasma </content><con Center tent styleCode="Kirstin d">3.4 MMOLL HH</content><c ontent styleCode="Jody lics"> (0.7-2.0 MMOLL)</conten t> UNK 2.3-3.5 <content [facility] styleCode="Kirstin Destiny d">Globulin Medical </content>2.4 Center G/DL<content styleCode="Jody lics"> (2.3-3.5 G/DL)</content > UNK >= 1.0 <content [facility] styleCode="Kirstin Destiny d">AG Ratio Medical </content>1.5 Center <content styleCode="Jody lics"> (>= 1.0 )</content> Protein 6.3-8.2 Below low normal <content [facility] [Mass/volume] styleCode="Kirstin Destiny in Serum or d">Total Medical Plasma Protein Center </content>6.0 G/DL L<content styleCode="Jody lics"> (6.3-8.2 G/DL)</content > Phosphate 2.5-4.5 <content [facility] [Mass/volume] styleCode="Kirstin Destiny in Serum or d">Phosphorus Medical Plasma </content>4.5 Center MG/DL<content styleCode="Jody lics"> (2.5-4.5 MG/DL)</conten t> Magnesium 1.6-2.3 Below low normal <content [facility] [Mass/volume] styleCode="Kirstin Destiny in Serum or d">Magnesium Medical Plasma </content>1.3 Center MG/DL L<content styleCode="Jody lics"> (1.6-2.3 MG/DL)</conten t> Folate > 3.0 <content [facility] [Mass/volume] styleCode="Kirstin Gays in Serum or d">Folic Acid Medical Plasma </content>15.1 Center NG/ML<content styleCode="Jody lics"> (> 3.0 NG/ML)</conten t> UNK >= 1.0 <content [facility] styleCode="Kirstin Destiny d">AG Ratio Medical </content>1.3 Center <content styleCode="Jody lics"> (>= 1.0 )</content> Protein 6.3-8.2 Below low normal <content [facility] [Mass/volume] styleCode="Kirstin Destiny in Serum or d">Total Medical Plasma Protein Center </content>5.3 G/DL L<content styleCode="Jody lics"> (6.3-8.2 G/DL)</content > Phosphate 2.5-4.5 <content [facility] [Mass/volume] styleCode="Kirstin Destiny in Serum or d">Phosphorus Medical Plasma </content>2.5 Center MG/DL<content styleCode="Jody lics"> (2.5-4.5 MG/DL)</conten t> Magnesium 1.6-2.3 <content [facility] [Mass/volume] styleCode="Kirstin Gays in Serum or d">Magnesium Medical Plasma </content>1.9 Center MG/DL<content styleCode="Jody lics"> (1.6-2.3 MG/DL)</conten t> UNK 2.3-3.5 <content [facility] styleCode="Kirstin Gays d">Globulin Medical </content>2.3 Center G/DL<content styleCode="Jody lics"> (2.3-3.5 G/DL)</content > ID Date Data Source Liver 01/11/2019 05:55:00 AM EDT [facility] Profile.[id number] Name Value Range Interpretation Description Data Sup porting Code Source(s) Document(s ) Aspartate 17-59 <content [facility] aminotransferase styleCode="Bold"> Adi hs [Enzymatic Aspartate Medical activity/volume] Aminotransferase Center in Serum or Plasma (AST) </content>23 IU/L<content styleCode="Italic s"> (17-59 IU/L)</content> Alanine 7-50 <content [facility] aminotransferase styleCode="Bold"> Adi hs [Enzymatic Alanine Medical activity/volume] Aminotransferase Center in Serum or Plasma (ALT) </content>17 IU/L<content styleCode="Italic s"> (7-50 IU/L)</content> Bilirubin.total 0.2-1.3 <content [facility] [Mass/volume] in styleCode="Bold"> Adi hs Serum or Plasma Bilirubin Total Medical </content>0.7 Center MG/DL<content styleCode="Italic s"> (0.2-1.3 MG/DL)</content> Alkaline 38-126 <content [facility] phosphatase styleCode="Bold"> Destiny [Enzymatic Alkaline Medical activity/volume] Phosphatase (ALP) Cente r in Serum or Plasma </content>53 IU/L<content styleCode="Italic s"> (38-126 IU/L)</content> Albumin 3.5-5.0 Below low <content [facility] [Mass/volume] in normal styleCode="Bold"> Adi hs Serum or Plasma Albumin Medical </content>3.1 Center G/DL L<content styleCode="Italic s"> (3.5-5.0 G/DL)</content> ID Date Data Source Coagulation 01/11/2019 05:55:00 AM [facility] Rout.[id number] EDT Name Value Range Interpretation Description Data Sup porting Code Source(s) Document(s ) INR in 0.80-1.2 Above high normal <content [facility] Platelet poor 0 styleCode="Bold" Destiny plasma by >INR Medical Coagulation </content>1.46 # Center assay H<content styleCode="Itali cs"> (0.80-1.20 #)</content> UNK 9.0-13.0 Above high normal <content [facility] styleCode="Bold" Destiny >Protime Medical </content>16.6 Center SEC H<content styleCode="Itali cs"> (9.0-13.0 SEC)</content> aPTT in 25.1-36. <content [facility] Platelet poor 5 styleCode="Bold" Destiny plasma by >Partial Medical Coagulation Thromboplastin Center assay Time </content>31.1 SEC<content styleCode="Itali cs"> (25.1-36.5 SEC)</content> ID Date Data Source CHMROUTINECCDA.[id number] 01/11/2019 05:55:00 AM EDT [facility] Name Value Range Interpretation Description Data Sup porting Code Source(s) Document(s ) UNK >= 1.0 <content Saint styleCode="Kirstin Gays d">AG Ratio Medical </content>1.3 Center <content styleCode="Jody lics"> (>= 1.0 )</content> Magnesium 1.6-2.3 <content [facility] [Mass/volume] styleCode="Kirstin Gays in Serum or d">Magnesium Medical Plasma </content>1.9 Center MG/DL<content styleCode="Jody lics"> (1.6-2.3 MG/DL)</conten t> UNK 2.3-3.5 <content [facility] styleCode="Kirstin Destiny d">Globulin Medical </content>2.3 Center G/DL<content styleCode="Jody lics"> (2.3-3.5 G/DL)</content > Phosphate 2.5-4.5 Below low normal <content [facility] [Mass/volume] styleCode="Kirstin Destiny in Serum or d">Phosphorus Medical Plasma </content>2.0 Center MG/DL L<content styleCode="Jody lics"> (2.5-4.5 MG/DL)</conten t> Protein 6.3-8.2 Below low normal <content [facility] [Mass/volume] styleCode="Kirstin Destiny in Serum or d">Total Medical Plasma Protein Center </content>5.4 G/DL L<content styleCode="Jody lics"> (6.3-8.2 G/DL)</content > ID Date Data Source CardiacMarkers.[id number] 01/11/2019 05:55:00 AM EDT [facility] -0400 Name Value Range Interpretation Description Data Sup porting Code Source(s) Document(s ) Troponin < 0.034 <content [facility] I.cardiac styleCode="Bold Destiny [Mass/volume ">Troponin I Medical ] in Serum </content>0.021 Center or Plasma NG/ML<content styleCode="Ital ics"> (< 0.034 NG/ML)</content > ID Date Data Source CHMROUTINECCDA.[id number] 01/10/2019 01:15:00 PM EDT [facility] -0400 Name Value Range Interpretation Description Data Sup porting Code Source(s) Document(s ) Lactate 0.7-2.0 <content [facility] Destiny [Mass/volum styleCode="Bold Medical e] in Serum ">Lactic Acid Center or Plasma </content>0.9 MMOLL<content styleCode="Ital ics"> (0.7-2.0 MMOLL)</content > ID Date Data Source Hormones.[id number] 01/10/2019 06:31:00 AM EDT [facility] Name Value Range Interpretation Description Data Sup porting Code Source(s) Document(s ) Thyrotropin 0.465-4. <content [facility] [Units/volume] 68 styleCode="Kirstin Destiny in Serum or d">Thyroid Medical Plasma by Stimulating Center Detection Hormone limit <= 0.05 </content>2.19 mIU/L MIU/L<content styleCode="Jody lics"> (0.465-4.68 MIU/L)</conten t> ID Date Data Source Coagulation 01/10/2019 06:31:00 AM [facility] Rout.[id number] EDT Name Value Range Interpretation Description Data Sup porting Code Source(s) Document(s ) UNK 9.0-13.0 Above high normal <content [facility] styleCode="Bold" Destiny >Protime Medical </content>15.3 Center SEC H<content styleCode="Itali cs"> (9.0-13.0 SEC)</content> aPTT in 25.1-36. <content [facility] Platelet poor 5 styleCode="Bold" Destiny plasma by >Partial Medical Coagulation Thromboplastin Center assay Time </content>30.9 SEC<content styleCode="Itali cs"> (25.1-36.5 SEC)</content> INR in 0.80-1.2 Above high normal <content [facility] Platelet poor 0 styleCode="Bold" Destiny plasma by >INR Medical Coagulation </content>1.35 # Center assay H<content styleCode="Itali cs"> (0.80-1.20 #)</content> ID Date Data Source ChemistrySpecia.[id number] 01/10/2019 06:31:00 AM EDT [facility] 0-0400 Name Value Range Interpretation Description Data Sup porting Code Source(s) Document(s ) Cobalamin 239-931 <content [facility] (Vitamin B12) styleCode="Kirstin Destiny [Mass/volume] d">Vitamin B12 Medical in Serum or </content>557 Center Plasma PG/ML<content styleCode="Jody lics"> (239-931 PG/ML)</conten t> ID Date Data Source Hormones 01/10/2019 06:31:00 AM EDT [facility] Name Value Range Interpretation Description Data Sup porting Code Source(s) Document(s ) Thyrotropin 0.465-4. <content [facility] [Units/volume] 68 styleCode="Kirstin Destiny in Serum or d">Thyroid Medical Plasma by Stimulating Center Detection Hormone limit <= 0.05 </content>2.27 mIU/L MIU/L<content styleCode="Jody lics"> (0.465-4.68 MIU/L)</conten t> Thyrotropin 0.465-4. <content [facility] [Units/volume] 68 styleCode="Kirstin Destiny in Serum or d">Thyroid Medical Plasma by Stimulating Center Detection Hormone limit <= 0.05 </content>2.19 mIU/L MIU/L<content styleCode="Jody lics"> (0.465-4.68 MIU/L)</conten t> ID Date Data Source CardiacMarkers.[id number] 01/09/2019 05:12:00 AM EDT [facility] -0400 Name Value Range Interpretation Description Data Sup porting Code Source(s) Document(s ) Troponin < 0.034 Above upper panic <content [facility] I.cardiac limits styleCode="Bold Destiny [Mass/volume ">Troponin I Medical ] in Serum </content><cont Center or Plasma ent styleCode="Bold ">0.036 NG/ML HH</content><co ntent styleCode="Ital ics"> (< 0.034 NG/ML)</content > ID Date Data Source Urinalysis.[id number] 01/07/2019 10:36:00 AM EDT [facility] 0 Name Value Range Interpretation Description Data Sup porting Code Source(s) Document(s ) Color of Urine YELLOW <content Saint styleCode="Kirstin Destiny d">Color, Medical Urine Center </content>YELL OW <content styleCode="Jody lics"> (YELLOW )</content> Glucose NEGATIVE <content [facility] [Mass/volume] styleCode="Kirstin Destiny in Urine by d">Urine Medical Test strip Glucose Center </content>NEGA TIVE MG/DL<content styleCode="Jody lics"> (NEGATIVE MG/DL)</conten t> UNK CLEAR <content Saint styleCode="Kirstin Destiny d">Urine Medical Clarity Center </content>MACARIO R <content styleCode="Jody lics"> (CLEAR )</content> Specific 1.015-1.02 Below low normal <content [facility] gravity of 5 styleCode="Kirstin Destiny Urine by Test d">Urine Medical strip Specific Center [place] </content>1.01 0 L<content styleCode="Jody lics"> (1.015-1.025 )</content> Ketones NEGATIVE <content [facility] [Mass/volume] styleCode="Kirstin Destiny in Urine by d">Urine Medical Test strip Ketone Center </content>NEGA TIVE MG/DL<content styleCode="Jody lics"> (NEGATIVE MG/DL)</conten t> UNK NEGATIVE <content Saint styleCode="Kirstin Destiny d">Urine Medical Bilirubin Center </content>NEGA TIVE <content styleCode="Jody lics"> (NEGATIVE )</content> Hemoglobin NEGATIVE <content Saint [Presence] in styleCode="Kirstin Gays Urine by Test d">Urine Blood Medical strip </content>TRAC Center E <content styleCode="Jody lics"> (NEGATIVE )</content> pH of Urine by 4.5-8.0 <content [facility] Test strip styleCode="Kirstin Gays d">Urine pH Medical </content>7.0 Center <content styleCode="Jody lics"> (4.5-8.0 )</content> Protein NEGATIVE <content [facility] [Mass/volume] styleCode="Kirstin Gays in Urine by d">Urine Medical Test strip Protein Center </content>30 MG/DL<content styleCode="Jody lics"> (NEGATIVE MG/DL)</conten t> Nitrite NEGATIVE <content [facility] [Presence] in styleCode="Kirstin Gays Urine by Test d">Urine Medical strip Nitrite Center </content>NEGA TIVE <content styleCode="Jody lics"> (NEGATIVE )</content> Urobilinogen 0.2-1.0 <content [facility] [Units/volume] styleCode="Kirstin Gays in Urine by d">Urine Medical Test strip Urobilinogen Center </content>0.2 MG/DL<content styleCode="Jody lics"> (0.2-1.0 MG/DL)</conten t> Leukocyte NEGATIVE <content [facility] esterase styleCode="Kirstin Gays [Presence] in d">Urine Medical Urine by Test Leukocyte Center strip </content>NEGA TIVE <content styleCode="Jody lics"> (NEGATIVE )</content> UNK 0-3 <content Saint styleCode="Kirstin Destiny d">Urine White Medical Blood Cell Center </content>0-3 HPF<content styleCode="Jody lics"> (0-3 HPF)</content> UNK 0-3 <content Saint styleCode="Kirstin Gays d">Urine Red Medical Blood Cell Center </content>5 - 10 HPF<content styleCode="Jody lics"> (0-3 HPF)</content> UNK NEGATIVE <content Saint styleCode="iKrstin Gays d">Urine Medical Bacteria Center </content>FEW HPF<content styleCode="Jody lics"> (NEGATIVE HPF)</content> UNK <content [facility] styleCode="Kirstin Gays d">Epithelial Medical Cell Center </content>2-5 LPF (Reference Range: not available)<br/ > ID Date Data Source Urinalysis 01/07/2019 10:36:00 AM EDT [facility] Name Value Range Interpretation Description Data Sup porting Code Source(s) Document(s ) Glucose NEGATIVE <content [facility] [Mass/volume] styleCode="Kirstin Dixon in Urine by d">Urine Medical Test strip Glucose Center </content>NEGA TIVE MG/DL<content styleCode="Jody lics"> (NEGATIVE MG/DL)</conten t> Color of Urine YELLOW <content [facility] styleCode="Kirstin Gays d">Color, [facility] Urine Center </content>YELL OW <content styleCode="Jody lics"> (YELLOW )</content> UNK CLEAR <content Saint styleCode="Kirstin Gays d">Urine Medical Clarity Center </content>MACARIO R <content styleCode="Jody lics"> (CLEAR )</content> Ketones NEGATIVE <content [facility] [Mass/volume] styleCode="Kirstin Dixon in Urine by d">Urine Medical Test strip Ketone Center </content>NEGA TIVE MG/DL<content styleCode="Jody lics"> (NEGATIVE MG/DL)</conten t> Hemoglobin NEGATIVE <content [facility] [Presence] in styleCode="Kirstin Dixon Urine by Test d">Urine Blood Medical strip </content>NEGA Center TIVE <content styleCode="Jody lics"> (NEGATIVE )</content> UNK NEGATIVE <content Saint styleCode="Kirstin Destiny d">Urine Medical Bilirubin Center </content>NEGA TIVE <content styleCode="Jody lics"> (NEGATIVE )</content> Specific 1.015-1.02 <content [facility] gravity of 5 styleCode="Kirstin Destiny Urine by Test d">Urine Medical strip Specific Center [place] </content>1.01 5 NM<content styleCode="Jody lics"> (1.015-1.025 NM)</content> Urobilinogen 0.2-1.0 <content [facility] [Units/volume] styleCode="Kirstin Destiny in Urine by d">Urine Medical Test strip Urobilinogen Center </content>1.0 MG/DL<content styleCode="Jody lics"> (0.2-1.0 MG/DL)</conten t> Protein NEGATIVE <content [facility] [Mass/volume] styleCode="Kirstin Destiny in Urine by d">Urine Medical Test strip Protein Center </content>NEGA TIVE MG/DL<content styleCode="Jody lics"> (NEGATIVE MG/DL)</conten t> pH of Urine by 4.5-8.0 <content Saint Test strip styleCode="Kirstin Destiny d">Urine pH Medical </content>6.0 Center NM<content styleCode="Jody lics"> (4.5-8.0 NM)</content> Leukocyte NEGATIVE <content [facility] esterase styleCode="Kirstin Destiny [Presence] in d">Urine Medical Urine by Test Leukocyte Center strip </content>NEGA TIVE <content styleCode="Jody lics"> (NEGATIVE )</content> Nitrite NEGATIVE <content [facility] [Presence] in styleCode="Kirstin Destiny Urine by Test d">Urine Medical strip Nitrite Center </content>NEGA TIVE <content styleCode="Jody lics"> (NEGATIVE )</content> Glucose NEGATIVE <content [facility] [Mass/volume] styleCode="Kirstin Destiny in Urine by d">Urine Medical Test strip Glucose Center </content>NEGA TIVE MG/DL<content styleCode="Jody lics"> (NEGATIVE MG/DL)</conten t> UNK CLEAR <content [facility] styleCode="Kirstin Destiny d">Urine Medical Clarity Center </content>MACARIO R <content styleCode="Jody lics"> (CLEAR )</content> Color of Urine YELLOW <content [facility] styleCode="Kirstin Destiny d">Color, Medical Urine Center </content>YELL OW <content styleCode="Jody lics"> (YELLOW )</content> Ketones NEGATIVE <content [facility] [Mass/volume] styleCode="Kirstin Destiny in Urine by d">Urine Medical Test strip Ketone Center </content>NEGA TIVE MG/DL<content styleCode="Jody lics"> (NEGATIVE MG/DL)</conten t> UNK NEGATIVE <content Saint styleCode="Kirstin Destiny d">Urine Medical Bilirubin Center </content>SMAL L <content styleCode="Jody lics"> (NEGATIVE )</content> pH of Urine by 4.5-8.0 <content Saint Test strip styleCode="Kirstin Destiny d">Urine pH Medical </content>6.5 Center <content styleCode="Jody lics"> (4.5-8.0 )</content> Hemoglobin NEGATIVE <content [facility] [Presence] in styleCode="Kirstin Gays Urine by Test d">Urine Blood Medical strip </content>TRAC Center E <content styleCode="Jody lics"> (NEGATIVE )</content> Specific 1.015-1.02 <content [facility] gravity of 5 styleCode="Kirstin Destiny Urine by Test d">Urine Medical strip Specific Center [place] </content>1.02 0 <content styleCode="Jody lics"> (1.015-1.025 )</content> Nitrite NEGATIVE <content [facility] [Presence] in styleCode="Kirstin Destiny Urine by Test d">Urine Medical strip Nitrite Center </content>NEGA TIVE <content styleCode="Jody lics"> (NEGATIVE )</content> Urobilinogen 0.2-1.0 <content [facility] [Units/volume] styleCode="Kirstin Destiny in Urine by d">Urine Medical Test strip Urobilinogen Center </content>1.0 MG/DL<content styleCode="Jody lics"> (0.2-1.0 MG/DL)</conten t> Protein NEGATIVE <content [facility] [Mass/volume] styleCode="Kirstin Dixon in Urine by d">Urine Medical Test strip Protein Center </content>100 MG/DL<content styleCode="Jody lics"> (NEGATIVE MG/DL)</conten t> UNK 0-3 <content Saint styleCode="Kirstin Destiny d">Urine Red Medical Blood Cell Center </content>3-5 HPF<content styleCode="Jody lics"> (0-3 HPF)</content> Leukocyte NEGATIVE <content [facility] esterase styleCode="Kirstin Dixon [Presence] in d">Urine Medical Urine by Test Leukocyte Center strip </content>NEGA TIVE <content styleCode="Jody lics"> (NEGATIVE )</content> UNK NEGATIVE <content Saint styleCode="Kirstin Destiny d">Urine Medical Bacteria Center </content>FEW HPF<content styleCode="Jody lics"> (NEGATIVE HPF)</content> UNK 0-3 <content Saint styleCode="Kirstin Destiny d">Urine White Medical Blood Cell Center </content>10 - 20 HPF<content styleCode="Jody lics"> (0-3 HPF)</content> UNK <content Saint styleCode="Kirstin Destiny d">Sperm Cell Medical </content>MODE Center RATE HPF (Reference Range: not available)<br/ > UNK NONE SEEN <content [facility] styleCode="Kirstin Destiny d">Urine Mucus Medical </content>FEW Center LPF<content styleCode="Jody lics"> (NONE SEEN LPF)</content> UNK CLEAR <content [facility] styleCode="Kirstin Destiny d">Urine Medical Clarity Center </content>MACARIO R <content styleCode="Jody lics"> (CLEAR )</content> Color of Urine YELLOW <content [facility] styleCode="Kirstin Destiny d">Color, Medical Urine Center </content>YELL OW <content styleCode="Jody lics"> (YELLOW )</content> Ketones NEGATIVE <content [facility] [Mass/volume] styleCode="Kirstin Gays in Urine by d">Urine Medical Test strip Ketone Center </content>NEGA TIVE MG/DL<content styleCode="Jody lics"> (NEGATIVE MG/DL)</conten t> UNK NEGATIVE <content Saint styleCode="Kirstin Destiny d">Urine Medical Bilirubin Center </content>NEGA TIVE <content styleCode="Jody lics"> (NEGATIVE )</content> Glucose NEGATIVE <content [facility] [Mass/volume] styleCode="Kirstin Destiny in Urine by d">Urine Medical Test strip Glucose Center </content>NEGA TIVE MG/DL<content styleCode="Jody lics"> (NEGATIVE MG/DL)</conten t> Protein NEGATIVE <content [facility] [Mass/volume] styleCode="Kirstin Gays in Urine by d">Urine Medical Test strip Protein Center </content>30 MG/DL<content styleCode="Jody lics"> (NEGATIVE MG/DL)</conten t> pH of Urine by 4.5-8.0 <content Saint Test strip styleCode="Kirstin Destiny d">Urine pH Medical </content>7.0 Center <content styleCode="Jody lics"> (4.5-8.0 )</content> Hemoglobin NEGATIVE <content Saint [Presence] in styleCode="Kirstin Gays Urine by Test d">Urine Blood Medical strip </content>TRAC Center E <content styleCode="Jody lics"> (NEGATIVE )</content> Specific 1.015-1.02 Below low normal <content [facility] gravity of 5 styleCode="Kirstin Gays Urine by Test d">Urine Medical strip Specific Center [place] </content>1.01 0 L<content styleCode="Jody lics"> (1.015-1.025 )</content> Leukocyte NEGATIVE <content Saint esterase styleCode="Kirstin Gays [Presence] in d">Urine Medical Urine by Test Leukocyte Center strip </content>NEGA TIVE <content styleCode="Jody lics"> (NEGATIVE )</content> Nitrite NEGATIVE <content [facility] [Presence] in styleCode="Kirstin Dixon Urine by Test d">Urine Medical strip Nitrite Center </content>NEGA TIVE <content styleCode="Jody lics"> (NEGATIVE )</content> Urobilinogen 0.2-1.0 <content [facility] [Units/volume] styleCode="Kirstin Dioxn in Urine by d">Urine Medical Test strip Urobilinogen Center </content>0.2 MG/DL<content styleCode="Jody lics"> (0.2-1.0 MG/DL)</conten t> UNK NEGATIVE <content Saint styleCode="Kirstin Gays d">Urine Medical Bacteria Center </content>FEW HPF<content styleCode="Jody lics"> (NEGATIVE HPF)</content> UNK 0-3 <content Saint styleCode="Kirstin Gays d">Urine White Medical Blood Cell Center </content>0-3 HPF<content styleCode="Jody lics"> (0-3 HPF)</content> UNK 0-3 <content Saint styleCode="Kirstin Gays d">Urine Red Medical Blood Cell Center </content>5 - 10 HPF<content styleCode="Jody lics"> (0-3 HPF)</content> UNK <content Saint styleCode="Kirstin Gays d">Epithelial Medical Cell Center </content>2-5 LPF (Reference Range: not available)<br/ > ID Date Data Source Coagulation 01/07/2019 10:20:00 AM [facility] Rout.[id number] EDT Name Value Range Interpretation Description Data Sup porting Code Source(s) Document(s ) INR in 0.80-1.2 <content Saint Platelet poor 0 styleCode="Bold" Destiny plasma by >INR Medical Coagulation </content>1.10 Center assay #<content styleCode="Itali cs"> (0.80-1.20 #)</content> UNK 9.0-13.0 <content Saint styleCode="Bold" Destiny >[facility] </content>12.4 Center SEC<content styleCode="Itali cs"> (9.0-13.0 SEC)</content> aPTT in 25.1-36. <content Saint Platelet poor 5 styleCode="Bold" [facility] plasma by >Partial [facility] assay Time </content>34.5 SEC<content styleCode="Itali cs"> (25.1-36.5 SEC)</content> ID Date Data Source Microbiology.[id number] 01/07/2019 04:45:00 AM EDT [facility] 400 Name Value Range Interpretation Code Description Data Loyda rce(s) Supporting Document(s ) UNK <item><content [facility] styleCode="Bold"> Medical [facility] er Culture Report </content>
<t able><tbody><tr>< td>Specimen Number:</td><td>[id number]</td></tr ><tr><td>Sample Collection Date/Time: </td><td> 9 4:45 AM</td></tr><tr>< td>Specimen Source:</td><td>B LOOD</td></tr><tr ><td>Culture Status:</td><td>F inal </td></tr><tr><td >Culture Report:</td><td>N O GROWTH 5 DAYS </td></tr><tr><td >Blood Culture:</td><td> Collection Plate Date: 01/07/2019 04:54 </td></tr></tbody ></table></item> UNK <item><content [facility] styleCode="Bold"> Medical [facility] er Culture Status </content>
<t able><tbody><tr>< td>Specimen Number:</td><td>[id number]</td></tr ><tr><td>Sample Collection Date/Time: </td><td> 9 4:45 AM</td></tr><tr>< td>Specimen Source:</td><td>B LOOD</td></tr><tr ><td>Blood Culture:</td><td> Collection Plate Date: 01/07/2019 04:54 </td></tr><tr><td >Culture Report:</td><td>N O GROWTH 5 DAYS </td></tr><tr><td >Culture Status:</td><td>F inal </td></tr></tbody ></table></item> ID Date Data Source Microbiology 01/07/2019 04:45:00 AM EDT [facility] Name Value Range Interpretation Code Description Data Loyda rce(s) Supporting Document(s ) UNK <item><content [facility] styleCode="Bold">[facility] nter lture Report </content>
<tab le><tbody><tr><td>S pecimen Number:</td><td>[id number]</td></tr><tr ><td>Sample Collection Date/Time: </td><td>12/17/2018 9:39 PM</td></tr><tr><td >Specimen Source:</td><td>URI NE</td></tr><tr><td >Urine Culture:</td><td>Co llection Plate Date: 12/17/2018 21:41 </td></tr><tr><td>C ulture Status:</td><td>Fin al </td></tr><tr><td>C ulture Report:</td><td>COA GULASE NEGATIVE STAPHYLOCOCCUS </td></tr><tr><td>C olony Count Urine:</td><td>< 10,000 CFU/ML </td></tr></tbody>< /table></item> UNK <item><content [facility] styleCode="Bold">Cu Medical Ce nter lture Status </content>
<tab le><tbody><tr><td>S pecimen Number:</td><td>[id number]</td></tr><tr ><td>Sample Collection Date/Time: </td><td>12/17/2018 9:39 PM</td></tr><tr><td >Specimen Source:</td><td>URI NE</td></tr><tr><td >[place] Count Urine:</td><td>< 10,000 CFU/ML </td></tr><tr><td>C ulture Status:</td><td>Fin al </td></tr><tr><td>C ulture Report:</td><td>COA GULASE NEGATIVE STAPHYLOCOCCUS </td></tr><tr><td>U rine Culture:</td><td>Co llection Plate Date: 12/17/2018 21:41 </td></tr></tbody>< /table></item> UNK <item><content [facility] styleCode="Bold">[facility] Ce nter lture Status </content>
<tab le><tbody><tr><td>S pecimen Number:</td><td>[id number]</td></tr><tr ><td>Sample Collection Date/Time: </td><td>01/07/2019 4:45 AM</td></tr><tr><td >Specimen Source:</td><td>BLO OD</td></tr><tr><td >Blood Culture:</td><td>Co llection Plate Date: 01/07/2019 04:54 </td></tr><tr><td>C ulture Report:</td><td>NO GROWTH 5 DAYS </td></tr><tr><td>C ulture Status:</td><td>Fin al </td></tr></tbody>< /table></item> UNK <item><content [facility] styleCode="Bold">Cu Medical Ce nter lture Report </content>
<tab le><tbody><tr><td>S pecimen Number:</td><td>[id number]</td></tr><tr ><td>Sample Collection Date/Time: </td><td>01/07/2019 4:45 AM</td></tr><tr><td >Specimen Source:</td><td>BLO OD</td></tr><tr><td >Blood Culture:</td><td>Co llection Plate Date: 01/07/2019 04:54 </td></tr><tr><td>C ulture Status:</td><td>Fin al </td></tr><tr><td>C ulture Report:</td><td>NO GROWTH 5 DAYS </td></tr></tbody>< /table></item> ID Date Data Source Microbiology.[id number] 01/07/2019 04:40:00 AM [facility] Name Value Range Interpretation Code Description Data Loyda rce(s) Supporting Document(s ) UNK <item><content [facility] styleCode="Bold"> Medical Cent er Culture Status </content>
<t able><tbody><tr>< td>Specimen Number:</td><td>[id number]</td></tr ><tr><td>Sample Collection Date/Time: </td><td> 9 4:40 AM</td></tr><tr>< td>Specimen Source:</td><td>B LOOD</td></tr><tr ><td>Culture Report:</td><td>N O GROWTH 5 DAYS </td></tr><tr><td >Culture Status:</td><td>F inal </td></tr><tr><td >Blood Culture:</td><td> Collection Plate Date: 01/07/2019 04:55 </td></tr></tbody ></table></item> UNK <item><content [facility] styleCode="Bold"> Medical [facility] er Culture Report </content>
<t able><tbody><tr>< td>Specimen Number:</td><td>[id number]</td></tr ><tr><td>Sample Collection Date/Time: </td><td> 9 4:40 AM</td></tr><tr>< td>Specimen Source:</td><td>B LOOD</td></tr><tr ><td>Blood Culture:</td><td> Collection Plate Date: 01/07/2019 04:55 </td></tr><tr><td >Culture Status:</td><td>F inal </td></tr><tr><td >Culture Report:</td><td>N O GROWTH 5 DAYS </td></tr></tbody ></table></item> ID Date Data Source LIPID.[id number] 12/29/2018 12:43:[address] [facility] Name Value Range Interpretation Description Data Sup porting Code Source(s) Document(s ) Triglyceride < 150 Above high normal <content Saint [Mass/volume] in styleCode="Kirstin Destiny Serum or Plasma d">Triglycerid Medical es Center </content>164 MG/DL H<content styleCode="Jody lics"> (< 150 MG/DL)</conten t> UNK > 60 <content Saint styleCode="Kirstin Destiny d">HDL- Medical Cholesterol Center </content>91 MG/DL<content styleCode="Jody lics"> (> 60 MG/DL)</conten t> Cholesterol -<200 <content Saint [Mass/volume] in styleCode="Kirstin Dixon Serum or Plasma d">Cholesterol Medical </content>139 Center MG/DL<content styleCode="Jody lics"> (-<200 MG/DL)</conten t> UNK < 100 <content Saint styleCode="Kirstin Dixon d">LDL-Cholest Medical [facility] Center </content>15 MG/DL<content styleCode="Jody lics"> (< 100 MG/DL)</conten t> ID Date Data Source Coagulation Rout 12/29/2018 12:43:00 PM EDT [facility] Name Value Range Interpretation Description Data Sup porting Code Source(s) Document(s ) UNK 9.0-13.0 Above high normal <content Saint styleCode="Bold" Destiny >[facility] </content>13.3 Center SEC H<content styleCode="Itali cs"> (9.0-13.0 SEC)</content> INR in 0.80-1.2 <content Saint Platelet poor 0 styleCode="Bold" [facility] plasma by >INR Medical Coagulation </content>1.17 Center assay #<content styleCode="Itali cs"> (0.80-1.20 #)</content> aPTT in 25.1-36. <content [facility] Platelet poor 5 styleCode="Bold" [facility] plasma by >Partial Medical Coagulation Thromboplastin Center assay Time </content>31.3 SEC<content styleCode="Itali cs"> (25.1-36.5 SEC)</content> INR in 0.80-1.2 Above high normal <content [facility] Platelet poor 0 styleCode="Bold" Destiny plasma by >INR Medical Coagulation </content>1.29 # Center assay H<content styleCode="Itali cs"> (0.80-1.20 #)</content> UNK 9.0-13.0 Above high normal <content Saint styleCode="Bold" Destiny >[facility] </content>14.6 Center SEC H<content styleCode="Itali cs"> (9.0-13.0 SEC)</content> aPTT in 25.1-36. <content [facility] Platelet poor 5 styleCode="Bold" [facility] plasma by >Partial Medical Coagulation Thromboplastin Center assay Time </content>32.6 SEC<content styleCode="Itali cs"> (25.1-36.5 SEC)</content> INR in 0.80-1.2 Above high normal <content [facility] Platelet poor 0 styleCode="Bold" Destiny plasma by >INR Medical Coagulation </content>1.43 # Center assay H<content styleCode="Itali cs"> (0.80-1.20 #)</content> UNK 9.0-13.0 Above high normal <content Saint styleCode="Bold" Destiny >[facility] </content>16.3 Center SEC H<content styleCode="Itali cs"> (9.0-13.0 SEC)</content> aPTT in 25.1-36. <content [facility] Platelet poor 5 styleCode="Bold" Dest[place] plasma by >Partial Medical Coagulation Thromboplastin Center assay Time </content>31.4 SEC<content styleCode="Itali cs"> (25.1-36.5 SEC)</content> INR in 0.80-1.2 Above high normal <content [facility] Platelet poor 0 styleCode="Bold" Dest[place] plasma by >INR Medical Coagulation </content>1.36 # Center assay H<content styleCode="Itali cs"> (0.80-1.20 #)</content> UNK 9.0-13.0 Above high normal <content Saint styleCode="Bold" Destiny >[facility] </content>15.5 Center SEC H<content styleCode="Itali cs"> (9.0-13.0 SEC)</content> aPTT in 25.1-36. <content [facility] Platelet poor 5 styleCode="Bold" Destiny plasma by >Partial Medical Coagulation Thromboplastin Center assay Time </content>29.9 SEC<content styleCode="Itali cs"> (25.1-36.5 SEC)</content> UNK 9.0-13.0 <content Saint styleCode="Bold" Destiny >[facility] Medical </content>12.4 Center SEC<content styleCode="Itali cs"> (9.0-13.0 SEC)</content> aPTT in 25.1-36. <content [facility] Platelet poor 5 styleCode="Bold" [place] plasma by >Partial Medical Coagulation Thromboplastin Center assay Time </content>34.5 SEC<content styleCode="Itali cs"> (25.1-36.5 SEC)</content> INR in 0.80-1.2 <content [facility] Platelet poor 0 styleCode="Bold" Destiny plasma by >INR Medical Coagulation </content>1.10 Center assay #<content styleCode="Itali cs"> (0.80-1.20 #)</content> UNK 9.0-13.0 Above high normal <content Saint styleCode="Bold" Destiny >[facility] </content>14.9 Center SEC H<content styleCode="Itali cs"> (9.0-13.0 SEC)</content> aPTT in 25.1-36. <content [facility] Platelet poor 5 styleCode="Bold" Destiny plasma by >Partial Medical Coagulation Thromboplastin Center assay Time </content>28.8 SEC<content styleCode="Itali cs"> (25.1-36.5 SEC)</content> INR in 0.80-1.2 Above high normal <content [facility] Platelet poor 0 styleCode="Bold" Destiny plasma by >INR Medical Coagulation </content>1.31 # Center assay H<content styleCode="Itali cs"> (0.80-1.20 #)</content> aPTT in 25.1-36. <content [facility] Platelet poor 5 styleCode="Bold" Destiny plasma by >Partial Medical Coagulation Thromboplastin Center assay Time </content>34.3 SEC<content styleCode="Itali cs"> (25.1-36.5 SEC)</content> INR in 0.80-1.2 Above high normal <content [facility] Platelet poor 0 styleCode="Bold" Destiny plasma by >INR Medical Coagulation </content>1.21 # Center assay H<content styleCode="Itali cs"> (0.80-1.20 #)</content> UNK 9.0-13.0 Above high normal <content Saint styleCode="Bold" Destiny >[facility] </content>13.7 Center SEC H<content styleCode="Itali cs"> (9.0-13.0 SEC)</content> UNK < 500 Above upper panic <content Saint limits styleCode="Bold" Destiny >D-Dimer Medical </content><beny Center nt styleCode="Bold" >4074 ngFEU HH</content><con tent styleCode="Itali cs"> (< 500 ngFEU)</content> ID Date Data Source ChemistrySpecia.[id number] 12/19/2018 05:50:00 AM EDT [facility] 0-0400 Name Value Range Interpretation Description Data Sup porting Code Source(s) Document(s ) Cobalamin 239-931 <content Saint (Vitamin B12) styleCode="Kirstin Gays [Mass/volume] d">Vitamin B12 Medical in Serum or </content>416 Center Plasma PG/ML<content styleCode="Jody lics"> (239-931 PG/ML)</conten t> Folate > 3.0 <content [facility] [Mass/volume] styleCode="Kirstin Gays in Serum or d">Folic Acid Medical Plasma </content>17.9 Center NG/ML<content styleCode="Jody lics"> (> 3.0 NG/ML)</conten t> ID Date Data Source Urinalysis.[id number] 12/17/2018 09:39:00 PM EDT [facility] 0 Name Value Range Interpretation Description Data Sup porting Code Source(s) Document(s ) Color of Urine YELLOW <content Saint styleCode="Kirstin Gays d">Color, Medical Urine Center </content>YELL OW <content styleCode="Jody lics"> (YELLOW )</content> UNK CLEAR <content Saint styleCode="Kirstin Destiny d">Urine Medical Clarity Center </content>MACARIO R <content styleCode="Jody lics"> (CLEAR )</content> Glucose NEGATIVE <content Saint [Mass/volume] styleCode="Kirstin Gays in Urine by d">Urine Medical Test strip Glucose Center </content>NEGA TIVE MG/DL<content styleCode="Jody lics"> (NEGATIVE MG/DL)</conten t> UNK NEGATIVE <content Saint styleCode="Kirstin Destiny d">Urine Medical Bilirubin Center </content>SMAL L <content styleCode="Jody lics"> (NEGATIVE )</content> Ketones NEGATIVE <content Saint [Mass/volume] styleCode="Kirstin Gays in Urine by d">Urine Medical Test strip Ketone Center </content>NEGA TIVE MG/DL<content styleCode="Jody lics"> (NEGATIVE MG/DL)</conten t> Hemoglobin NEGATIVE <content Saint [Presence] in styleCode="Kirstin Gays Urine by Test d">Urine Blood Medical strip </content>TRAC Center E <content styleCode="Jody lics"> (NEGATIVE )</content> Specific 1.015-1.02 <content Saint gravity of 5 styleCode="Kirstin Gays Urine by Test d">Urine Medical strip Specific Center [place] </content>1.02 0 <content styleCode="Jody lics"> (1.015-1.025 )</content> pH of Urine by 4.5-8.0 <content Saint Test strip styleCode="Kirstin Destiny d">Urine pH Medical </content>6.5 Center <content styleCode="Jody lics"> (4.5-8.0 )</content> Protein NEGATIVE <content Saint [Mass/volume] styleCode="Kirstin Gays in Urine by d">Urine Medical Test strip Protein Center </content>100 MG/DL<content styleCode="Jody lics"> (NEGATIVE MG/DL)</conten t> Nitrite NEGATIVE <content Saint [Presence] in styleCode="Kirstin Gays Urine by Test d">Urine Medical strip Nitrite Center </content>NEGA TIVE <content styleCode="Jody lics"> (NEGATIVE )</content> Leukocyte NEGATIVE <content [facility] esterase styleCode="Kirstin Destiny [Presence] in d">Urine Medical Urine by Test Leukocyte Center strip </content>NEGA TIVE <content styleCode="Jody lics"> (NEGATIVE )</content> Urobilinogen 0.2-1.0 <content [facility] [Units/volume] styleCode="Kirstin Gays in Urine by d">Urine Medical Test strip Urobilinogen Center </content>1.0 MG/DL<content styleCode="Jody lics"> (0.2-1.0 MG/DL)</conten t> UNK 0-3 <content [facility] styleCode="Kirstin Destiny d">Urine White Medical Blood Cell Center </content>10 - 20 HPF<content styleCode="Jody lics"> (0-3 HPF)</content> UNK 0-3 <content Saint styleCode="Kirstin Destiny d">Urine Red Medical Blood Cell Center </content>3-5 HPF<content styleCode="Jody lics"> (0-3 HPF)</content> UNK NONE SEEN <content Saint styleCode="Kirstin Gays d">Urine Mucus Medical </content>FEW Center LPF<content styleCode="Jody lics"> (NONE SEEN LPF)</content> UNK NEGATIVE <content Saint styleCode="Kirstin Destiny d">Urine Medical Bacteria Center </content>FEW HPF<content styleCode="Jody lics"> (NEGATIVE HPF)</content> UNK <content [facility] styleCode="Kirstin Gays d">Sperm Cell Medical </content>MODE Center RATE HPF (Reference Range: not available)<br/ > ID Date Data Source Microbiology.[id number] 12/17/2018 09:39:00 PM EDT [facility] 400 Name Value Range Interpretation Code Description Data Loyda rce(s) Supporting Document(s ) UNK <item><content [facility] styleCode="Bold">Cu Medical Ce nter lture Report </content>
<tab le><tbody><tr><td>S pecimen Number:</td><td>[id number]</td></tr><tr ><td>Sample Collection Date/Time: </td><td>12/17/2018 9:39 PM</td></tr><tr><td >Specimen Source:</td><td>URI NE</td></tr><tr><td >Culture Report:</td><td>COA GULASE NEGATIVE STAPHYLOCOCCUS </td></tr><tr><td>C olony Count Urine:</td><td>< 10,000 CFU/ML </td></tr><tr><td>U rine Culture:</td><td>Co llection Plate Date: 12/17/2018 21:41 </td></tr><tr><td>C ulture Status:</td><td>Fin al </td></tr></tbody>< /table></item> UNK <item><content [facility] styleCode="Bold">Cu Medical Ce nter lture Status </content>
<tab le><tbody><tr><td>S pecimen Number:</td><td>[id number]</td></tr><tr ><td>Sample Collection Date/Time: </td><td>12/17/2018 9:39 PM</td></tr><tr><td >Specimen Source:</td><td>URI NE</td></tr><tr><td >Culture Status:</td><td>Fin al </td></tr><tr><td>C ulture Report:</td><td>COA GULASE NEGATIVE STAPHYLOCOCCUS </td></tr><tr><td>U rine Culture:</td><td>Co llection Plate Date: 12/17/2018 21:41 </td></tr><tr><td>C olony Count Urine:</td><td>< 10,000 CFU/ML </td></tr></tbody>< /table></item> ID Date Data Source [id number] 12/17/2018 04:55:00 PM EDT [facility] Name Value Range Interpretation Description Data Sup porting Code Source(s) Document(s ) Triglyceride < 150 <content [facility]Mass/volume] in styleCode="[facility]in [facility] Serum or Plasma d">Triglycerid [facility] </content>103 MG/DL<content styleCode="Jody lics"> (< 150 MG/DL)</conten t> Cholesterol -<200 <content [facility] [Mass/volume] in styleCode="[facility] Serum or Plasma d">Cholesterol Medical </content>162 Center MG/DL<content styleCode="Jody lics"> (-<200 MG/DL)</conten t> UNK > 60 <content [facility] styleCode="[facility] d">HDL- Medical Cholesterol Center </content>128 MG/DL<content styleCode="Jody lics"> (> 60 MG/DL)</conten t> UNK < 100 <content [facility] styleCode="[facility] d">LDL-Cholest [facility] </content>13 MG/DL<content styleCode="Jody lics"> (< 100 MG/DL)</conten t> Procedure Social History Code Duration Value Status Description Data Source(s ) Smoking 05/02/2020 Daily Smoker completed Daily Smoker [facility] 01:35:00 AM EDT Medical C enter Smoking 05/01/2020 Daily Smoker completed Daily Smoker [facility] 11:55:00 PM EDT Medical C enter Smoking 05/01/2020 Daily Smoker completed Daily Smoker [facility] 09:51:00 PM EDT Medical C enter Smoking 05/01/2020 Daily Smoker completed Daily Smoker [facility] 04:51:00 AM EDT Medical C enter Smoking 05/01/2020 Daily Smoker completed Daily Smoker [facility] 03:45:00 AM EDT Medical C enter Smoking 05/01/2020 Daily Smoker completed Daily Smoker [facility] 03:33:00 AM EDT Medical C enter Smoking 04/30/2020 Daily Smoker completed Daily Smoker [facility] 07:20:00 PM EDT Medical C enter Smoking 04/30/2020 Daily Smoker completed Daily Smoker [facility] 07:16:00 PM EDT Medical C enter Smoking 03/30/2020 Daily Smoker completed Daily Smoker [facility] 08:35:00 PM EDT Medical C enter Smoking 03/30/2020 Daily Smoker completed Daily Smoker [facility] 07:50:00 PM EDT Medical C enter Smoking 03/30/2020 Daily Smoker completed Daily Smoker [facility] 07:39:00 PM EDT Medical C enter Smoking 03/29/2020 Daily Smoker completed Daily Smoker [facility] 04:43:00 PM EDT Medical C enter Smoking 03/29/2020 Daily Smoker completed Daily Smoker [facility] 04:36:00 PM EDT Medical C enter Smoking 03/29/2020 Daily Smoker completed Daily Smoker [facility] 04:32:00 PM EDT Medical C enter Smoking 03/09/2020 Daily Smoker completed Daily Smoker [facility] 05:01:00 PM EDT Medical C enter Smoking 03/09/2020 Daily Smoker completed Daily Smoker [facility] 04:48:00 PM EDT Medical C enter Smoking 03/09/2020 Daily Smoker completed Daily Smoker [facility] 04:37:00 PM EDT Medical C enter Smoking 02/20/2020 Daily Smoker completed Daily Smoker [facility] 09:05:00 PM EDT Medical C enter Smoking 02/20/2020 Daily Smoker completed Daily Smoker [facility] 08:59:00 PM EDT Medical C enter Smoking 02/08/2020 Daily Smoker completed Daily Smoker [facility] 05:20:00 PM EDT Medical C enter Smoking 02/08/2020 Daily Smoker completed Daily Smoker [facility] 05:20:00 PM EDT Medical C enter Smoking 02/06/2020 Daily Smoker completed Daily Smoker [facility] 07:01:00 PM EDT Medical C enter Smoking 02/06/2020 Daily Smoker completed Daily Smoker [facility] 06:54:00 PM EDT Medical C enter Smoking 02/06/2020 Daily Smoker completed Daily Smoker [facility] 06:49:00 PM EDT Medical C enter Smoking 02/01/2020 Daily Smoker completed Daily Smoker [facility] 02:23:00 PM EDT Medical C enter Smoking 02/01/2020 Daily Smoker completed Daily Smoker [facility] 02:15:00 PM EDT Medical C enter Smoking 02/01/2020 Daily Smoker completed Daily Smoker [facility] 02:08:00 PM EDT Medical C enter Smoking 01/29/2020 Daily Smoker completed Daily Smoker [facility] 08:28:00 PM EDT Medical C enter Smoking 01/29/2020 Daily Smoker completed Daily Smoker [facility] 02:18:00 PM EDT Medical C enter Smoking 01/29/2020 Daily Smoker completed Daily Smoker [facility] 02:05:00 PM EDT Medical C enter Smoking 01/29/2020 Daily Smoker completed Daily Smoker [facility] 01:35:00 PM EDT Medical C enter Smoking 01/24/2020 Daily Smoker completed Daily Smoker [facility] 06:15:00 PM EDT Medical C enter Smoking 01/24/2020 Daily Smoker completed Daily Smoker [facility] 05:59:00 PM EDT Medical C enter Smoking 01/24/2020 Daily Smoker completed Daily Smoker [facility] 05:50:00 PM EDT Medical C enter Smoking 01/24/2020 Daily Smoker completed Daily Smoker [facility] 05:49:00 PM EDT Medical C enter Smoking 01/22/2020 Daily Smoker completed Daily Smoker [facility] 10:59:00 PM EDT Medical C enter Smoking 01/22/2020 Daily Smoker completed Daily Smoker [facility] 10:10:00 PM EDT Medical C enter Smoking 01/22/2020 Daily Smoker completed Daily Smoker [facility] 10:06:00 PM EDT Medical C enter Smoking 01/03/2020 Daily Smoker completed Daily Smoker [facility] 07:15:00 AM EDT Medical C enter Smoking 01/03/2020 Daily Smoker completed Daily Smoker [facility] 06:58:00 AM EDT Medical C enter Smoking 01/03/2020 Daily Smoker completed Daily Smoker [facility] 06:44:00 AM EDT Medical C enter Smoking 01/01/2020 Daily Smoker completed Daily Smoker [facility] 09:46:00 AM EDT Medical C enter Smoking 01/01/2020 Daily Smoker completed Daily Smoker [facility] 09:46:00 AM EDT Medical C enter Smoking 12/30/2019 Daily Smoker completed Daily Smoker [facility] 12:46:00 PM EDT Medical C enter Smoking 12/30/2019 Daily Smoker completed Daily Smoker [facility] 12:45:00 PM EDT Medical C enter Smoking 12/30/2019 Daily Smoker completed Daily Smoker [facility] 12:41:00 PM EDT Medical C enter Smoking 12/03/2019 Daily Smoker completed Daily Smoker [facility] 01:42:00 PM EDT Medical C enter Smoking 12/03/2019 Daily Smoker completed Daily Smoker [facility] 01:37:00 PM EDT Medical C enter Smoking 11/30/2019 Daily Smoker completed Daily Smoker [facility] 06:30:00 PM EDT Medical C enter Smoking 11/30/2019 Daily Smoker completed Daily Smoker [facility] 06:19:00 PM EDT Medical C enter Smoking 11/30/2019 Daily Smoker completed Daily Smoker [facility] 06:00:00 PM EDT Medical C enter Smoking 11/25/2019 Current Smoker completed Current Smoker eCW1 ( 12:00:00 AM EST [facility] Smoking 11/04/2019 Daily Smoker completed Daily Smoker [facility] 05:00:00 PM EST Medical C enter Smoking 11/04/2019 Daily Smoker completed Daily Smoker [facility] 04:58:00 PM EST Medical C enter Smoking 11/04/2019 Daily Smoker completed Daily Smoker [facility] 04:13:00 PM EST Medical C enter Smoking 11/02/2019 Daily Smoker completed Daily Smoker [facility] 04:07:00 PM EST Medical C enter Smoking 11/02/2019 Daily Smoker completed Daily Smoker [facility] 03:28:00 PM EST Medical C enter Smoking 11/02/2019 Daily Smoker completed Daily Smoker [facility] 03:16:00 PM EST Medical C enter Smoking 11/02/2019 Daily Smoker completed Daily Smoker [facility] 10:04:00 AM EST Medical C enter Smoking 11/02/2019 Daily Smoker completed Daily Smoker [facility] 09:30:00 AM EST Medical C enter Smoking 11/02/2019 Daily Smoker completed Daily Smoker [facility] 09:27:00 AM EST Medical C enter Smoking 11/01/2019 Daily Smoker completed Daily Smoker [facility] 03:44:00 PM EST Medical C enter Smoking 11/01/2019 Daily Smoker completed Daily Smoker [facility] 03:32:00 PM EST Medical C enter Smoking 11/01/2019 Daily Smoker completed Daily Smoker [facility] 01:27:00 PM EST Medical C enter Smoking 11/01/2019 Daily Smoker completed Daily Smoker [facility] 12:31:00 PM EST Medical C enter Smoking 11/01/2019 Daily Smoker completed Daily Smoker [facility] 09:14:00 AM EST Medical C enter Smoking 11/01/2019 Daily Smoker completed Daily Smoker [facility] 09:14:00 AM EST Medical C enter Smoking 11/01/2019 Daily Smoker completed Daily Smoker [facility] 09:07:00 AM EST Medical C enter Smoking 10/31/2019 Daily Smoker completed Daily Smoker [facility] 03:43:00 PM EST Medical C enter Smoking 10/31/2019 Daily Smoker completed Daily Smoker [facility] 03:18:00 PM EST Medical C enter Smoking 10/31/2019 Daily Smoker completed Daily Smoker [facility] 03:14:00 PM EST Medical C enter Smoking 10/29/2019 Daily Smoker completed Daily Smoker [facility] 11:02:00 PM EST Medical C enter Smoking 10/29/2019 Daily Smoker completed Daily Smoker [facility] 10:56:00 PM EST Medical C enter Smoking 10/29/2019 Daily Smoker completed Daily Smoker [facility] 02:57:00 PM EST Medical C enter Smoking 09/06/2019 Daily Smoker completed Daily Smoker [facility] 05:34:00 PM EST Medical C enter Smoking 09/03/2019 Daily Smoker completed Daily Smoker [facility] 11:20:00 PM EST Medical C enter Smoking 09/03/2019 Daily Smoker completed Daily Smoker [facility] 10:36:00 PM EST Medical C enter Smoking 09/03/2019 Daily Smoker completed Daily Smoker [facility] 10:26:00 PM EST Medical C enter Smoking 08/30/2019 Daily Smoker completed Daily Smoker [facility] 10:22:00 PM EST Medical C enter Smoking 08/30/2019 Daily Smoker completed Daily Smoker [facility] 10:12:00 PM EST Medical C enter Smoking 08/30/2019 Daily Smoker completed Daily Smoker [facility] 07:35:00 PM EST Medical C enter Smoking 08/30/2019 Daily Smoker completed Daily Smoker [facility] 06:35:00 PM EST Medical C enter Smoking 08/30/2019 Daily Smoker completed Daily Smoker [facility] 06:31:00 PM EST Medical C enter Smoking 08/29/2019 Daily Smoker completed Daily Smoker [facility] 04:52:00 PM EST Medical C enter Smoking 08/29/2019 Daily Smoker completed Daily Smoker [facility] 04:28:00 PM EST Medical C enter Smoking 08/28/2019 Daily Smoker completed Daily Smoker [facility] 01:20:00 PM EST Medical C enter Smoking 08/28/2019 Daily Smoker completed Daily Smoker [facility] 01:10:00 PM EST Medical C enter Smoking 08/06/2019 Daily Smoker completed Daily Smoker [facility] 02:41:00 AM EST Medical C enter Smoking 08/06/2019 Daily Smoker completed Daily Smoker [facility] 01:35:00 AM EST Medical C enter Smoking 08/06/2019 Daily Smoker completed Daily Smoker [facility] 01:31:00 AM EST Medical C enter Smoking 06/26/2019 Daily Smoker completed Daily Smoker [facility] 08:15:00 AM EDT Medical C enter Smoking 06/26/2019 Daily Smoker completed Daily Smoker [facility] 08:00:00 AM EDT Medical C enter Smoking 06/26/2019 Daily Smoker completed Daily Smoker [facility] 07:02:00 AM EDT Medical C enter Smoking 02/13/2019 Daily Smoker completed Daily Smoker [facility] 01:02:00 AM EDT Medical C enter Smoking 02/13/2019 Daily Smoker completed Daily Smoker [facility] 12:32:00 AM EDT Medical C enter Smoking 02/12/2019 Daily Smoker completed Daily Smoker [facility] 11:53:00 PM EDT Medical C enter Smoking 02/12/2019 Daily Smoker completed Daily Smoker [facility] 07:55:00 PM EDT Medical C enter Smoking 02/12/2019 Daily Smoker completed Daily Smoker [facility] 03:46:00 PM EDT Medical C enter Smoking 02/12/2019 Daily Smoker completed Daily Smoker [facility] 03:40:00 PM EDT Medical C enter Smoking 02/04/2019 Daily Smoker completed Daily Smoker [facility] 09:00:00 PM EDT Medical C enter Smoking 02/04/2019 Daily Smoker completed Daily Smoker [facility] 08:41:00 PM EDT Medical C enter Smoking 02/04/2019 Daily Smoker completed Daily Smoker [facility] 08:11:00 PM EDT Medical C enter Smoking 01/07/2019 Daily Smoker completed Daily Smoker [facility] 11:45:00 AM EDT Medical C enter Smoking 01/07/2019 Daily Smoker completed Daily Smoker [facility] 10:39:00 AM EDT Medical C enter Smoking 01/07/2019 Daily Smoker completed Daily Smoker [facility] 07:06:00 AM EDT Medical C enter Smoking 01/07/2019 Daily Smoker completed Daily Smoker [facility] 05:01:00 AM EDT Medical C enter Smoking 01/07/2019 Daily Smoker completed Daily Smoker [facility] 04:25:00 AM EDT Medical C enter Smoking 01/06/2019 Daily Smoker completed Daily Smoker [facility] 08:20:00 PM EDT Medical C enter Smoking 01/06/2019 Daily Smoker completed Daily Smoker [facility] 08:04:00 PM EDT Medical C enter Smoking 01/05/2019 Daily Smoker completed Daily Smoker [facility] 08:23:00 PM EDT Medical C enter Smoking 01/05/2019 Daily Smoker completed Daily Smoker [facility] 07:56:00 PM EDT Medical C enter Smoking 01/05/2019 Daily Smoker completed Daily Smoker [facility] 07:43:00 PM EDT Medical C enter Smoking 12/29/2018 Daily Smoker completed Daily Smoker [facility] 12:20:00 PM EDT Medical C enter Smoking 12/29/2018 Daily Smoker completed Daily Smoker [facility] 11:30:00 AM EDT Medical C enter Smoking 12/29/2018 Daily Smoker completed Daily Smoker [facility] 11:29:00 AM EDT Medical C enter Smoking 12/18/2018 Daily Smoker completed Daily Smoker [facility] 12:06:00 AM EDT Medical C enter Smoking 12/17/2018 Daily Smoker completed Daily Smoker [facility] 10:40:00 PM EDT Medical C enter Smoking 12/17/2018 Daily Smoker completed Daily Smoker [facility] 04:19:00 PM EDT Medical C enter Smoking 12/17/2018 Daily Smoker completed Daily Smoker [facility] 04:13:00 PM EDT Medical C enter Smoking 12/17/2018 Daily Smoker completed Daily Smoker [facility] 03:44:00 PM EDT Medical C enter Smoking 10/17/2018 Daily Smoker completed Daily Smoker [facility] 06:23:00 PM EST Medical C enter Smoking 10/17/2018 Daily Smoker completed Daily Smoker [facility] 06:20:00 PM EST Medical C enter Smoking 10/17/2018 Daily Smoker completed Daily Smoker [facility] 02:09:00 PM EST Medical C enter Smoking 10/17/2018 Daily Smoker completed Daily Smoker [facility] 02:00:00 PM EST Medical C enter Smoking 10/17/2018 Daily Smoker completed Daily Smoker [facility] 01:54:00 PM EST Medical C enter Smoking 10/02/2018 Daily Smoker completed Daily Smoker [facility] 04:23:00 PM EST Medical C enter Smoking 10/02/2018 Daily Smoker completed Daily Smoker [facility] 04:15:00 PM EST Medical C enter Current Smoker completed Current Smoker eCW1 ( [facility]) Smoking Unknown if ever completed Unknown if ever Krystina Dixon smoked smoked [facility] Center Smoking Unknown if ever completed Unknown if ever eCW1 ([facility] Smoking Unknown if ever completed Unknown if ever eCW1 ([facility]) Smoking Unknown if ever completed Unknown if ever eCW1 ([facility]) Smoking Unknown if ever completed Unknown if ever eCW1 ([facility] Vital Signs ID Date Data Source UNK Name Value Range Interpretation Code Description Data Source(s) Oxygen saturation 96 % 96 % [facility] blood [facility] by Pulse oximetry Heart rate 71 /min 71 /min [facility] Diastolic blood 110 mm[Hg] 110 mm[Hg] [facility] Medical [place] Systolic blood 185 mm[Hg] 185 mm[Hg] [facility] Body temperature 36.150236 36.602358 [facility] Respiratory rate 19 /min 19 /min [facility] Oxygen saturation 98 % 98 % [facility] by Pulse oximetry Heart rate 111 /min 111 /min [facility] Diastolic blood 107 mm[Hg] 107 mm[Hg] [facility] pressure Medical [place] Systolic blood 141 mm[Hg] 141 mm[Hg] [facility] pressure [facility] Center Diastolic blood 97 mm[Hg] 97 mm[Hg] [facility] Medical [place] Systolic blood 154 mm[Hg] 154 mm[Hg] [facility] Medical [place] Diastolic blood 91 mm[Hg] 91 mm[Hg] [facility] pressure [facility] Center Systolic blood 158 mm[Hg] 158 mm[Hg] [facility] pressure Medical Center Diastolic blood 95 mm[Hg] 95 mm[Hg] [facility] pressure Medical Center Systolic blood 162 mm[Hg] 162 mm[Hg] [facility] pressure Medical Center Systolic blood 150 mm[Hg] 150 mm[Hg] [facility] Medical [place] Body temperature 36.360799 36.154584 [facility] Respiratory rate 16 /min 16 /min [facility] Oxygen saturation 96 % 96 % [facility] by Pulse oximetry Heart rate 90 /min 90 /min [facility] Diastolic blood 89 mm[Hg] 89 mm[Hg] [facility] Body weight 77.112694 kg 77.514386 kg [facility] Body temperature 36.846805 36.836158 [facility] Respiratory rate 18 /min 18 /min [facility] Oxygen saturation 96 % 96 % [facility] Ar[facility] blood [facility] by Pulse oximetry Heart rate 100 /min 100 /min [facility] Body height 167.331542 167.334696 cm [facility] Diastolic blood 92 mm[Hg] 92 mm[Hg] [facility] pressure Medical Center Systolic blood 142 mm[Hg] 142 mm[Hg] [facility] Body mass index 27.4 kg/m2 27.4 kg/m2 [facility] (BMI) [Ratio] Medical [facility] ter Body temperature 36.882200 36.328028 [facility] Respiratory rate 18 /min 18 /min [facility] Oxygen saturation 98 % 98 % [facility] blood [facility] by Pulse oximetry Heart rate 78 /min 78 /min [facility] Diastolic blood 97 mm[Hg] 97 mm[Hg] [facility] Systolic blood 128 mm[Hg] 128 mm[Hg] [facility] Body temperature 36.596766 36.636075 [facility] Respiratory rate 17 /min 17 /min [facility] Oxygen saturation 98 % 98 % [facility] blood [facility] by Pulse oximetry Heart rate 86 /min 86 /min [facility] Diastolic blood 81 mm[Hg] 81 mm[Hg] [facility] Systolic blood 130 mm[Hg] 130 mm[Hg] [facility] Body temperature 36.621257 36.116193 [facility] Respiratory rate 19 /min 19 /min [facility] Oxygen saturation 97 % 97 % [facility] blood [facility] by Pulse oximetry Heart rate 97 /min 97 /min [facility] Diastolic blood 89 mm[Hg] 89 mm[Hg] [facility] Systolic blood 132 mm[Hg] 132 mm[Hg] [facility] Body weight 72.432254 kg 72.644387 kg [facility] Measured [facility] Body height 177.206460 177.944175 cm [facility] Body mass index 22.9 kg/m2 22.9 kg/m2 [facility] (BMI) [Ratio] Medical [facility] ter Body temperature 36.378925 36.173416 [facility] Respiratory rate 18 /min 18 /min [facility] Oxygen saturation 97 % 97 % [facility] Ar[facility] blood [facility] Center by Pulse oximetry Heart rate 97 /min 97 /min [facility] Diastolic blood 89 mm[Hg] 89 mm[Hg] [facility] Systolic blood 137 mm[Hg] 137 mm[Hg] [facility] Body weight 77.348405 kg 77.195801 kg [facility] Measured [facility] Body temperature 36.578428 36.462344 [facility] Respiratory rate 18 /min 18 /min [facility] Oxygen saturation 96 % 96 % [facility] blood [facility] by Pulse oximetry Heart rate 84 /min 84 /min [facility] Body height 193.797744 193.056502 cm [facility] Diastolic blood 87 mm[Hg] 87 mm[Hg] [facility] pressure Medical Center Systolic blood 144 mm[Hg] 144 mm[Hg] [facility] Body mass index 20.6 kg/m2 20.6 kg/m2 [facility] (BMI) [Ratio] Medical [facility] ter Body temperature 37.091451 37.052260 [facility] Respiratory rate 17 /min 17 /min [facility] Oxygen saturation 98 % 98 % [facility] Arter[facility] blood [facility] by Pulse oximetry Heart rate 81 /min 81 /min [facility] Diastolic blood 76 mm[Hg] 76 mm[Hg] [facility] pressure Medical Center Systolic blood 139 mm[Hg] 139 mm[Hg] [facility] Body temperature 37.344956 37.447187 [facility] Respiratory rate 17 /min 17 /min [facility] Oxygen saturation 97 % 97 % [facility] blood [facility] by Pulse oximetry Heart rate 84 /min 84 /min [facility] Diastolic blood 83 mm[Hg] 83 mm[Hg] [facility] Center Systolic blood 147 mm[Hg] 147 mm[Hg] [facility] Body temperature 36.121398 36.688673 [facility] Respiratory rate 18 /min 18 /min [facility] Oxygen saturation 98 % 98 % [facility] Ar[facility] blood [facility] by Pulse oximetry Heart rate 89 /min 89 /min [facility] Diastolic blood 80 mm[Hg] 80 mm[Hg] [facility] pressure Medical Center Systolic blood 134 mm[Hg] 134 mm[Hg] [facility] Body temperature 36.091204 36.524061 [facility] Respiratory rate 18 /min 18 /min [facility] Oxygen saturation 97 % 97 % [facility] Arterial blood [facility] by Pulse oximetry Heart rate 68 /min 68 /min [facility] Diastolic blood 81 mm[Hg] 81 mm[Hg] [facility] Systolic blood 134 mm[Hg] 134 mm[Hg] [facility] Body weight 77.330308 kg 77.272152 kg [facility] Body temperature 36.889924 36.577697 [facility] Respiratory rate 17 /min 17 /min [facility] Oxygen saturation 98 % 98 % [facility] Ar[facility] blood [facility] by Pulse oximetry Heart rate 65 /min 65 /min [facility] Body height 193.486191 193.612564 cm [facility] Diastolic blood 80 mm[Hg] 80 mm[Hg] [facility] Center Systolic blood 137 mm[Hg] 137 mm[Hg] [facility] Body mass index 20.6 kg/m2 20.6 kg/m2 [facility] (BMI) [Ratio] Medical [facility] ter Body temperature 37.926119 37.054675 [facility] Respiratory rate 18 /min 18 /min [facility] Oxygen saturation 96 % 96 % [facility] blood [facility] by Pulse oximetry Heart rate 65 /min 65 /min [facility] Diastolic blood 66 mm[Hg] 66 mm[Hg] [facility] Systolic blood 149 mm[Hg] 149 mm[Hg] [facility] Body weight 77.681236 kg 77.984189 kg [facility] Body temperature 36.906653 36.741318 [facility] Respiratory rate 20 /min 20 /min [facility] Oxygen saturation 96 % 96 % [facility] Ar[facility] blood [facility] Center by Pulse oximetry Heart rate 48 /min 48 /min [facility] Body height 192.067553 192.073174 cm [facility] Diastolic blood 75 mm[Hg] 75 mm[Hg] [facility] pressure Medical Center Systolic blood 152 mm[Hg] 152 mm[Hg] [facility] Body mass index 20.6 kg/m2 20.6 kg/m2 [facility] (BMI) [Ratio] Medical [facility] ter Body temperature 36.813751 36.712191 [facility] Respiratory rate 18 /min 18 /min [facility] Oxygen saturation 97 % 97 % [facility] Arterial blood [facility] by Pulse oximetry Heart rate 79 /min 79 /min [facility] Diastolic blood 84 mm[Hg] 84 mm[Hg] [facility] Systolic blood 132 mm[Hg] 132 mm[Hg] [facility] Body temperature 36.907051 36.795382 [facility] Respiratory rate 18 /min 18 /min [facility] Oxygen saturation 97 % 97 % [facility] blood [facility] by Pulse oximetry Heart rate 76 /min 76 /min [facility] Diastolic blood 86 mm[Hg] 86 mm[Hg] [facility] Systolic blood 134 mm[Hg] 134 mm[Hg] [facility] Body temperature 36.069578 36.373811 [facility] Respiratory rate 18 /min 18 /min [facility] Oxygen saturation 96 % 96 % [facility] blood [facility] by Pulse oximetry Heart rate 80 /min 80 /min [facility] Diastolic blood 97 mm[Hg] 97 mm[Hg] [facility] Systolic blood 133 mm[Hg] 133 mm[Hg] [facility] Body temperature 36.083893 36.249639 [facility] Respiratory rate 18 /min 18 /min [facility] Oxygen saturation 97 % 97 % [facility] Arterial blood [facility] by Pulse oximetry Heart rate 89 /min 89 /min [facility] Diastolic blood 62 mm[Hg] 62 mm[Hg] [facility] pressure [facility] Center Systolic blood 113 mm[Hg] 113 mm[Hg] [facility] Body temperature 36.406710 36.788602 [facility] Respiratory rate 18 /min 18 /min [facility] Oxygen saturation 97 % 97 % [facility] Arterial blood [facility] by Pulse oximetry Heart rate 94 /min 94 /min [facility] Diastolic blood 59 mm[Hg] 59 mm[Hg] [facility] Systolic blood 106 mm[Hg] 106 mm[Hg] [facility] Body weight 77.241987 kg 77.363627 kg [facility] Body height 185.936893 185.442037 cm [facility] Body mass index 22.4 kg/m2 22.4 kg/m2 [facility] (BMI) [Ratio] [facility] Body temperature 36.806561 36.275222 [facility] Respiratory rate 18 /min 18 /min [facility] Oxygen saturation 98 % 98 % [facility] Arterial blood [facility] by Pulse oximetry Heart rate 98 /min 98 /min [facility] Diastolic blood 88 mm[Hg] 88 mm[Hg] [facility] Systolic blood 138 mm[Hg] 138 mm[Hg] [facility] Body temperature 36.744329 36.754518 [facility] Respiratory rate 18 /min 18 /min [facility] Oxygen saturation 97 % 97 % [facility] Arterial blood [facility] by Pulse oximetry Heart rate 100 /min 100 /min [facility] Diastolic blood 80 mm[Hg] 80 mm[Hg] [facility] Systolic blood 145 mm[Hg] 145 mm[Hg] [facility] Body weight 77.292291 kg 77.015207 kg [facility] Body temperature 36.927861 36.921096 [facility] Respiratory rate 17 /min 17 /min [facility] Oxygen saturation 97 % 97 % [facility] Arterial blood [facility] by Pulse oximetry Heart rate 120 /min 120 /min [facility] Body height 193.375273 193.891461 cm [facility] [place] Diastolic blood 92 mm[Hg] 92 mm[Hg] [facility] pressure [facility] Center Systolic blood 148 mm[Hg] 148 mm[Hg] [facility] Body mass index 20.6 kg/m2 20.6 kg/m2 [facility] (BMI) [Ratio] [facility] Body temperature 36.449605 36.124245 [facility] Respiratory rate 17 /min 17 /min [facility] Oxygen saturation 97 % 97 % [facility] blood [facility] by Pulse oximetry Heart rate 68 /min 68 /min [facility] Diastolic blood 107 mm[Hg] 107 mm[Hg] [facility] Systolic blood 166 mm[Hg] 166 mm[Hg] [facility] Body temperature 37.020503 37.553118 [facility] Respiratory rate 20 /min 20 /min [facility] Oxygen saturation 94 % 94 % [facility] blood [facility] by Pulse oximetry Heart rate 104 /min 104 /min [facility] Diastolic blood 107 mm[Hg] 107 mm[Hg] [facility] Systolic blood 165 mm[Hg] 165 mm[Hg] [facility] Body temperature 36.202829 36.875136 [facility] Respiratory rate 18 /min 18 /min [facility] Oxygen saturation 98 % 98 % [facility] blood [facility] by Pulse oximetry Heart rate 104 /min 104 /min [facility] Diastolic blood 105 mm[Hg] 105 mm[Hg] [facility] Systolic blood 192 mm[Hg] 192 mm[Hg] [facility] Body weight 85.919221 kg 85.206673 kg [facility] Body temperature 36.375068 36.147795 [facility] Respiratory rate 18 /min 18 /min [facility] Oxygen saturation 98 % 98 % [facility] Ar[facility] blood [facility] by Pulse oximetry Heart rate 88 /min 88 /min [facility] Body height 180.976045 180.197853 cm [facility] Diastolic blood 98 mm[Hg] 98 mm[Hg] [facility] pressure [facility] Center Systolic blood 160 mm[Hg] 160 mm[Hg] [facility] Body mass index 26.1 kg/m2 26.1 kg/m2 [place] [facility] (BMI) [Ratio] [facility] Body weight 77.295726 kg 77.594907 kg [facility] Body temperature 36.444128 36.813996 [facility] Respiratory rate 18 /min 18 /min [facility] Oxygen saturation 95 % 95 % [facility] Arterial blood [facility] by Pulse oximetry Heart rate 86 /min 86 /min [facility] Body height 177.219565 177.375720 cm [facility] Diastolic blood 88 mm[Hg] 88 mm[Hg] [facility] Systolic blood 131 mm[Hg] 131 mm[Hg] [facility] Body mass index 24.3 kg/m2 24.3 kg/m2 [place] [facility] (BMI) [Ratio] Medical [facility] ter Body weight 90.806265 kg 90.411099 kg [facility] Body temperature 36.792886 36.675651 [facility] Respiratory rate 20 /min 20 /min [facility] Oxygen saturation 98 % 98 % [facility] Arterial blood [facility] by Pulse oximetry Heart rate 76 /min 76 /min [facility] Body height 180.125784 180.388224 cm [facility] Diastolic blood 84 mm[Hg] 84 mm[Hg] [facility] Systolic blood 154 mm[Hg] 154 mm[Hg] [facility] Body mass index 27.6 kg/m2 27.6 kg/m2 [facility] (BMI) [Ratio] Medical [facility] ter Body temperature 36.721166 36.990803 [facility] Respiratory rate 18 /min 18 /min [facility] Oxygen saturation 97 % 97 % [facility] Ar[facility]ial blood [facility] by Pulse oximetry Heart rate 88 /min 88 /min [facility] Diastolic blood 85 mm[Hg] 85 mm[Hg] [facility] Systolic blood 151 mm[Hg] 151 mm[Hg] [facility] Body temperature 36.523549 36.227135 [facility] Respiratory rate 18 /min 18 /min [facility] Heart rate 93 /min 93 /min [facility] Diastolic blood 88 mm[Hg] 88 mm[Hg] [facility] pressure [facility] Center Systolic blood 159 mm[Hg] 159 mm[Hg] [facility] Body temperature 36.743936 36.019957 [facility] Respiratory rate 19 /min 19 /min [facility] Heart rate 88 /min 88 /min [facility] Diastolic blood 90 mm[Hg] 90 mm[Hg] [facility] Systolic blood 154 mm[Hg] 154 mm[Hg] [facility] Body temperature 36.703991 36.422609 [facility] Respiratory rate 19 /min 19 /min [facility] Heart rate 92 /min 92 /min [facility] Diastolic blood 92 mm[Hg] 92 mm[Hg] [facility] Systolic blood 158 mm[Hg] 158 mm[Hg] [facility] [place] Body temperature 36.994367 36.275499 [facility] Respiratory rate 19 /min 19 /min [facility] Heart rate 90 /min 90 /min [facility] Diastolic blood 94 mm[Hg] 94 mm[Hg] [facility] Systolic blood 156 mm[Hg] 156 mm[Hg] [facility] [place] Body weight 95.485815 kg 95.590655 kg [facility] Oxygen saturation 96 % 96 % [facility] blood [facility] by Pulse oximetry Body height 193.463257 193.660883 cm [facility] Body mass index 25.4 kg/m2 25.4 kg/m2 [facility] (BMI) [Ratio] [facility] Diastolic blood 78 mm[Hg] 78 mm[Hg] eCW1 ([facility]) Systolic blood 124 mm[Hg] 124 mm[Hg] eCW1 ([facility]) Heart rate 91 /min 91 /min eCW1 ([facility]) Body mass index 22.72 kg/m2 22.72 kg/m2 eCW1 ([facility] aint (BMI) [Ratio] [facility] Body weight 177 [lb_av] 177 [lb_av] eCW1 ([facility]) Body height 74 [in_us] 74 [in_us] eCW1 ([facility]) Body weight 100.108935 100.266139 kg [facility] Measured kg [facility] Body temperature 36.623948 36.423208 [facility] Respiratory rate 19 /min 19 /min [facility] Oxygen saturation 97 % 97 % [facility] Arterial blood [facility] by Pulse oximetry Heart rate 88 /min 88 /min [facility] Body height 193.792347 193.289489 cm [facility] Diastolic blood 110 mm[Hg] 110 mm[Hg] [facility] pressure [facility] Systolic blood 180 mm[Hg] 180 mm[Hg] [facility] pressure [facility] Center Body mass index 26.8 kg/m2 26.8 kg/m2 [facility] (BMI) [Ratio] [facility] Body temperature 37.910115 37.620335 [facility] Respiratory rate 19 /min 19 /min [facility] Oxygen saturation 98 % 98 % [facility] Arterial blood [facility] by Pulse oximetry Heart rate 90 /min 90 /min [facility] Diastolic blood 90 mm[Hg] 90 mm[Hg] [facility] pressure [facility] Systolic blood 160 mm[Hg] 160 mm[Hg] [facility] pressure [facility] Body temperature 37.540161 37.282655 [facility] Respiratory rate 19 /min 19 /min [facility] Oxygen saturation 98 % 98 % [facility] Arterial blood [facility] by Pulse oximetry Heart rate 90 /min 90 /min [facility] Diastolic blood 90 mm[Hg] 90 mm[Hg] [facility] pressure [facility] Center Systolic blood 160 mm[Hg] 160 mm[Hg] [facility] Respiratory rate 20 /min 20 /min [facility] Heart rate 93 /min 93 /min [facility] Diastolic blood 105 mm[Hg] 105 mm[Hg] [facility] pressure [facility] Center Systolic blood 165 mm[Hg] 165 mm[Hg] [facility] Body temperature 36.605448 36.114035 [facility] Respiratory rate 20 /min 20 /min [facility] Oxygen saturation 97 % 97 % [facility] Arterial blood [facility] by Pulse oximetry Heart rate 94 /min 94 /min [facility] Diastolic blood 112 mm[Hg] 112 mm[Hg] [facility] pressure [facility] Center Systolic blood 174 mm[Hg] 174 mm[Hg] [facility] Body weight 77.656997 kg 77.637781 kg [facility] Body temperature 36.898530 36.621812 [facility] Respiratory rate 18 /min 18 /min [facility] Oxygen saturation 97 % 97 % [facility] Arterial blood [facility] by Pulse oximetry Heart rate 126 /min 126 /min [facility] Body height 177.860702 177.949065 cm [facility] Diastolic blood 108 mm[Hg] 108 mm[Hg] [facility] pressure [facility] Center Systolic blood 155 mm[Hg] 155 mm[Hg] [facility] Body mass index 24.3 kg/m2 24.3 kg/m2 [facility] (BMI) [Ratio] [facility] Body weight 75.032457 kg 75.607033 kg [facility] Body temperature 36.794800 36.656961 [facility] Respiratory rate 18 /min 18 /min [facility] Oxygen saturation 98 % 98 % [facility] Arterial blood [facility] by Pulse oximetry Heart rate 94 /min 94 /min [facility] Body height 180.986001 180.766610 cm [facility] [place] Diastolic blood 90 mm[Hg] 90 mm[Hg] [facility] Systolic blood 180 mm[Hg] 180 mm[Hg] [facility] Body mass index 23.0 kg/m2 23.0 kg/m2 [facility] (BMI) [Ratio] Medical [facility] ter Body weight 82.875655 kg 82.782469 kg [facility] Body temperature 36.635718 36.316954 [facility] Respiratory rate 20 /min 20 /min [facility] Oxygen saturation 99 % 99 % [facility] Arterial blood [facility] by Pulse oximetry Heart rate 93 /min 93 /min [facility] Body height 183.358705 183.633863 cm [facility] Diastolic blood 94 mm[Hg] 94 mm[Hg] [facility] Systolic blood 147 mm[Hg] 147 mm[Hg] [facility] Body mass index 24.4 kg/m2 24.4 kg/m2 [facility] (BMI) [Ratio] Medical [facility] ter Body weight 81.558357 kg 81.120487 kg [facility] Body height 193.583126 193.764840 cm [facility] Body mass index 21.91 kg/m2 21.91 kg/m2 [facility] (BMI) [Ratio] Medical [facility] ter Body temperature 36.082784 36.767900 [facility] Respiratory rate 18 /min 18 /min [facility] Heart rate 89 /min 89 /min [facility] Diastolic blood 97 mm[Hg] 97 mm[Hg] [facility] Systolic blood 143 mm[Hg] 143 mm[Hg] [facility] Body temperature 37.473433 37.067161 [facility] Respiratory rate 17 /min 17 /min [facility] Oxygen saturation 98 % 98 % [facility] Arterial blood [facility] by Pulse oximetry Heart rate 88 /min 88 /min [facility] Diastolic blood 96 mm[Hg] 96 mm[Hg] [facility] Systolic blood 154 mm[Hg] 154 mm[Hg] [facility] Body weight 81.188801 kg 81.674048 kg [facility] Body temperature 37.760296 37.230051 [facility] Respiratory rate 17 /min 17 /min [facility] Oxygen saturation 98 % 98 % [facility] blood [facility] by Pulse oximetry Heart rate 79 /min 79 /min [facility] Body height 193.139056 193.781910 cm [facility] Diastolic blood 87 mm[Hg] 87 mm[Hg] [facility] pressure [facility] Center Systolic blood 152 mm[Hg] 152 mm[Hg] [facility] Body mass index 21.9 kg/m2 21.9 kg/m2 [facility] (BMI) [Ratio] [facility] Body temperature 36.706704 36.585585 [facility] Respiratory rate 18 /min 18 /min [facility] Oxygen saturation 98 % 98 % [facility] blood [facility] by Pulse oximetry Heart rate 90 /min 90 /min [facility] Diastolic blood 89 mm[Hg] 89 mm[Hg] [facility] Systolic blood 146 mm[Hg] 146 mm[Hg] [facility] Body temperature 36.735779 36.072246 [facility] Respiratory rate 17 /min 17 /min [facility] Oxygen saturation 98 % 98 % [facility] blood [facility] by Pulse oximetry Heart rate 89 /min 89 /min [facility] Diastolic blood 91 mm[Hg] 91 mm[Hg] [facility] Systolic blood 152 mm[Hg] 152 mm[Hg] [facility] Body weight 77.770921 kg 77.043026 kg [facility] Body temperature 36.072423 36.095988 [facility] Respiratory rate 18 /min 18 /min [facility] Oxygen saturation 99 % 99 % [facility] blood [facility] by Pulse oximetry Heart rate 81 /min 81 /min [facility] Body height 193.889074 193.622926 cm [facility] Diastolic blood 109 mm[Hg] 109 mm[Hg] [facility] Systolic blood 157 mm[Hg] 157 mm[Hg] [facility] Body mass index 20.6 kg/m2 20.6 kg/m2 [facility] (BMI) [Ratio] Medical [facility] ter Body weight 85.866685 kg 85.465972 kg [facility] Body temperature 36.442619 36.784579 [facility] Respiratory rate 18 /min 18 /min [facility] Oxygen saturation 98 % 98 % [facility] Arterial blood [facility] by Pulse oximetry Heart rate 88 /min 88 /min [facility] Body height 190.957932 190.149706 cm [facility] Diastolic blood 83 mm[Hg] 83 mm[Hg] [facility] pressure [facility] Center Systolic blood 183 mm[Hg] 183 mm[Hg] [facility] Body mass index 23.4 kg/m2 23.4 kg/m2 [facility] (BMI) [Ratio] Medical [facility] Body temperature 36.050309 36.856358 [facility] Respiratory rate 18 /min 18 /min [facility] Oxygen saturation 97 % 97 % [facility] Arterial blood [facility] by Pulse oximetry Heart rate 82 /min 82 /min [facility] Diastolic blood 77 mm[Hg] 77 mm[Hg] [facility] Systolic blood 131 mm[Hg] 131 mm[Hg] [facility] Body temperature 36.703377 36.957509 [facility] Respiratory rate 17 /min 17 /min [facility] Oxygen saturation 100 % 100 % [facility] blood [facility] by Pulse oximetry Heart rate 101 /min 101 /min [facility] Diastolic blood 71 mm[Hg] 71 mm[Hg] [facility] Systolic blood 133 mm[Hg] 133 mm[Hg] [facility] Body temperature 37.911844 37.278115 [facility] Respiratory rate 18 /min 18 /min [facility] Heart rate 93 /min 93 /min [facility] Diastolic blood 76 mm[Hg] 76 mm[Hg] [facility] Systolic blood 143 mm[Hg] 143 mm[Hg] [facility] Body temperature 37.504073 37.361998 [facility] Oxygen saturation 96 % 96 % [facility] Arterial blood [facility] by Pulse oximetry Heart rate 96 /min 96 /min [facility] Diastolic blood 100 mm[Hg] 100 mm[Hg] [facility] pressure [facility] Center Systolic blood 161 mm[Hg] 161 mm[Hg] [facility] Body weight 77.634937 kg 77.414145 kg [facility] Body height 190.191670 190.541951 cm [facility] Body mass index 21.38 kg/m2 21.38 kg/m2 [facility] (BMI) [Ratio] [facility] Body temperature 36.880375 36.691176 [facility] Respiratory rate 20 /min 20 /min [facility] Heart rate 90 /min 90 /min [facility] Diastolic blood 76 mm[Hg] 76 mm[Hg] [facility] pressure [facility] Center Systolic blood 125 mm[Hg] 125 mm[Hg] [facility] Body weight 77.674677 kg 77.798534 kg [facility] Body temperature 36.756134 36.627497 [facility] Respiratory rate 20 /min 20 /min [facility] Heart rate 82 /min 82 /min [facility] Body height 190.973814 190.604830 cm [facility] Diastolic blood 103 mm[Hg] 103 mm[Hg] [facility] pressure [facility] Center Systolic blood 155 mm[Hg] 155 mm[Hg] [facility] Body mass index 21.38 kg/m2 21.38 kg/m2 [facility] osephs (BMI) [Ratio] [facility] Body temperature 36.483118 36.538903 [facility] Respiratory rate 18 /min 18 /min [facility] Oxygen saturation 99 % 99 % [facility] Arterial blood [facility] by Pulse oximetry Heart rate 98 /min 98 /min [facility] Diastolic blood 98 mm[Hg] 98 mm[Hg] [facility] pressure [facility] Systolic blood 159 mm[Hg] 159 mm[Hg] [facility] Body weight 80.889922 kg 80.549719 kg [facility] Respiratory rate 18 /min 18 /min [facility] Oxygen saturation 96 % 96 % [facility] Arterial blood [facility] by Pulse oximetry Body height 190.977566 190.843276 cm [facility] Body mass index 22.0 kg/m2 22.0 kg/m2 [facility] (BMI) [Ratio] [facility] Body temperature 36.486736 36.986465 [facility] Respiratory rate 18 /min 18 /min [facility] Oxygen saturation 98 % 98 % [facility] Arterial blood [facility] by Pulse oximetry Heart rate 90 /min 90 /min [facility] Diastolic blood 103 mm[Hg] 103 mm[Hg] [facility] pressure [facility] Center Systolic blood 160 mm[Hg] 160 mm[Hg] [facility] Body temperature 36.848451 36.772729 [facility] Respiratory rate 18 /min 18 /min [facility] Oxygen saturation 98 % 98 % [facility] blood [facility] by Pulse oximetry Heart rate 88 /min 88 /min [facility] Diastolic blood 80 mm[Hg] 80 mm[Hg] [facility] pressure [facility] Center Systolic blood 139 mm[Hg] 139 mm[Hg] [facility] Body weight 85.011391 kg 85.913040 kg [facility] Body temperature 36.517987 36.848901 [facility] Respiratory rate 18 /min 18 /min [facility] Oxygen saturation 98 % 98 % [facility] blood [facility] by Pulse oximetry Heart rate 93 /min 93 /min [facility] Body height 187.270151 187.619970 cm [facility] Diastolic blood 84 mm[Hg] 84 mm[Hg] [facility] pressure [facility] Center Systolic blood 136 mm[Hg] 136 mm[Hg] [facility] Body mass index 24.2 kg/m2 24.2 kg/m2 [facility] (BMI) [Ratio] Medical [facility] ter Diastolic blood mm[Hg] [facility] pressure [facility] Center Systolic blood mm[Hg] [facility] Body temperature 37.533854 37.046949 [facility] Respiratory rate 18 /min 18 /min [facility] Oxygen saturation 95 % 95 % [facility] Arterial blood [facility] by Pulse oximetry Heart rate 100 /min 100 /min [facility] Diastolic blood 94 mm[Hg] 94 mm[Hg] [facility] Systolic blood 152 mm[Hg] 152 mm[Hg] [facility] Body temperature 36.785185 36.262176 [facility] Respiratory rate 17 /min 17 /min [facility] Oxygen saturation 98 % 98 % [facility] Arterial blood [facility] by Pulse oximetry Heart rate 106 /min 106 /min [facility] Diastolic blood 100 mm[Hg] 100 mm[Hg] [facility] Systolic blood 154 mm[Hg] 154 mm[Hg] [facility] Body temperature 36.276243 36.148986 [facility] Respiratory rate 17 /min 17 /min [facility] Oxygen saturation 98 % 98 % [facility] Arterial blood [facility] by Pulse oximetry Heart rate 76 /min 76 /min [facility] Diastolic blood 104 mm[Hg] 104 mm[Hg] [facility] Systolic blood 155 mm[Hg] 155 mm[Hg] [facility] Body temperature 36.600024 36.014382 [facility] Respiratory rate 18 /min 18 /min [facility] Oxygen saturation 97 % 97 % [facility] Arterial blood [facility] by Pulse oximetry Heart rate 78 /min 78 /min [facility] Diastolic blood 104 mm[Hg] 104 mm[Hg] [facility] Systolic blood 156 mm[Hg] 156 mm[Hg] [facility] Body weight 68.082515 kg 68.861555 kg [facility] Body temperature 36.474071 36.291252 [facility] Respiratory rate 17 /min 17 /min [facility] Oxygen saturation 95 % 95 % [facility] Arterial blood [facility] by Pulse oximetry Heart rate 65 /min 65 /min [facility] Diastolic blood 95 mm[Hg] 95 mm[Hg] [facility] pressure [facility] Center Systolic blood 145 mm[Hg] 145 mm[Hg] [facility] Body temperature 36.039811 36.344765 [facility] Respiratory rate 19 /min 19 /min [facility] Heart rate 110 /min 110 /min [facility] Diastolic blood 87 mm[Hg] 87 mm[Hg] [facility] Systolic blood 119 mm[Hg] 119 mm[Hg] [facility] Heart rate 106 /min 106 /min [facility] Body weight 81.282819 kg 81.291752 kg [facility] Body temperature 36.852572 36.799443 [facility] Respiratory rate 19 /min 19 /min [facility] Oxygen saturation 97 % 97 % [facility] Arterial blood [facility] by Pulse oximetry Heart rate 110 /min 110 /min [facility] Body height 193.936569 193.094153 cm [facility] Diastolic blood 84 mm[Hg] 84 mm[Hg] [facility] Systolic blood 138 mm[Hg] 138 mm[Hg] [facility] Body mass index 21.9 kg/m2 21.9 kg/m2 [facility] (BMI) [Ratio] Medical [facility] ter Body temperature 36.309940 36.001002 [facility] Respiratory rate 18 /min 18 /min [facility] Oxygen saturation 96 % 96 % [facility] Arterial blood [facility] by Pulse oximetry Heart rate 124 /min 124 /min [facility] Diastolic blood 105 mm[Hg] 105 mm[Hg] [facility] Systolic blood 139 mm[Hg] 139 mm[Hg] [facility] Diastolic blood 86 mm[Hg] 86 mm[Hg] eCW1 ([facility]a nt pressure [facility]) Systolic blood 150 mm[Hg] 150 mm[Hg] eCW1 [facility] Deprecated Oxygen 99 % 99 % eCW1 (S aint saturation in [facility] Capillary blood by [facility]) Oximetry Heart rate 84 /min 84 /min [facility] Body mass index 21.70 kg/m2 21.70 kg/m2 eCW1 (S aint (BMI) [Ratio] [facility] Body weight 160 [lb_av] 160 [lb_av] [facility]CW[facility] Body height [in_us] eCW1 ([facility]) Body temperature 97.9 [degF] 97.9 [degF] eCW1 ( [facility]) Deprecated Oxygen 98 % 98 % eCW1 (S aint saturation in [facility] Capillary blood by [facility]) Oximetry Systolic blood 160 mm[Hg] 160 mm[Hg] eCW1 ([facility] Diastolic blood 80 mm[Hg] 80 mm[Hg] eCW1 ([facility] Respiratory rate 18 /min 18 /min eCW1 ( [facility] Body weight 160 [lb_av] 160 [lb_av] eCW[facility] Body weight 22 [lb_av] 22 [lb_av] eCW1 ([facility]) Systolic blood 163 mm[Hg] 163 mm[Hg] eCW1 ([facility]) Diastolic blood 85 mm[Hg] 85 mm[Hg] eCW1 ([facility]) Heart rate 77 /min 77 /min eCW1 ([facility] Body weight 160 [lb_av] 160 [lb_av] eCW1 ([facility]) Oxygen saturation 95 % 95 % [facility] in [facility] by Pulse oximetry Body temperature 36.011348 36.326968 [facility] Respiratory rate 19 /min 19 /min [facility] Heart rate 97 /min 97 /min [facility] Diastolic blood 78 mm[Hg] 78 mm[Hg] [facility] Systolic blood 113 mm[Hg] 113 mm[Hg] [facility] Body temperature 36.432321 36.787420 [facility] Respiratory rate 18 /min 18 /min [facility] Heart rate 75 /min 75 /min [facility] Diastolic blood 79 mm[Hg] 79 mm[Hg] [facility] Systolic blood 131 mm[Hg] 131 mm[Hg] [facility] [place] Body temperature 36.799749 36.332376 [facility] Respiratory rate 18 /min 18 /min [facility] Heart rate 99 /min 99 /min [facility] Diastolic blood 92 mm[Hg] 92 mm[Hg] [facility] Systolic blood 130 mm[Hg] 130 mm[Hg] [facility] Body temperature 36.709271 36.362844 [facility] Respiratory rate 18 /min 18 /min [facility] Heart rate 90 /min 90 /min [facility] Diastolic blood 72 mm[Hg] 72 mm[Hg] [facility] [place] Systolic blood 134 mm[Hg] 134 mm[Hg] [facility] Body temperature 36.049317 36.945073 [facility] Respiratory rate 20 /min 20 /min [facility] Heart rate 90 /min 90 /min [facility] Diastolic blood 81 mm[Hg] 81 mm[Hg] [facility] Systolic blood 146 mm[Hg] 146 mm[Hg] [facility] Oxygen saturation 97 % 97 % [facility] Arterial blood [facility] by Pulse oximetry Oxygen saturation 94 % 94 % [facility] Arterial blood [facility] by Pulse oximetry Body temperature 37.708583 37.146538 [facility] Respiratory rate 20 /min 20 /min [facility] Heart rate 105 /min 105 /min [facility] Diastolic blood 97 mm[Hg] 97 mm[Hg] [facility] Systolic blood 152 mm[Hg] 152 mm[Hg] [facility] Oxygen saturation 98 % 98 % [facility] Arterial blood [facility] by Pulse oximetry Body temperature 36.513697 36.324764 [facility] Respiratory rate 20 /min 20 /min [facility] Heart rate 112 /min 112 /min [facility] Diastolic blood 102 mm[Hg] 102 mm[Hg] [facility] pressure Medical Center Systolic blood 145 mm[Hg] 145 mm[Hg] [facility] Body weight 76.458715 kg 76.983009 kg [facility] Measured [facility] Body temperature 36.717093 36.140253 [facility] Respiratory rate 20 /min 20 /min [facility] Heart rate 108 /min 108 /min [facility] Diastolic blood 113 mm[Hg] 113 mm[Hg] [facility] pressure Medical Center Systolic blood 149 mm[Hg] 149 mm[Hg] [facility] Body temperature 42.831351 42.354895 [facility] Heart rate 111 /min 111 /min [facility] Diastolic blood 64 mm[Hg] 64 mm[Hg] [facility] Systolic blood 178 mm[Hg] 178 mm[Hg] [facility] Heart rate 108 /min 108 /min [facility] Diastolic blood 80 mm[Hg] 80 mm[Hg] [facility] Systolic blood 165 mm[Hg] 165 mm[Hg] [facility] Body temperature 37.401308 37.564939 [facility] Respiratory rate 22 /min 22 /min [facility] Oxygen saturation 96 % 96 % [facility] Arterial blood [facility] by Pulse oximetry Respiratory rate 20 /min 20 /min [facility] Oxygen saturation 91 % 91 % [facility] Arterial blood [facility] by Pulse oximetry Oxygen saturation 97 % 97 % [facility] Arterial blood [facility] by Pulse oximetry Oxygen saturation 98 % 98 % [facility] Arterial blood [facility] by Pulse oximetry Body temperature 36.899941 36.699390 [facility] Respiratory rate 19 /min 19 /min [facility] Oxygen saturation 98 % 98 % [facility] Arterial blood Medical [place] by Pulse oximetry Heart rate 114 /min 114 /min [facility] Diastolic blood 93 mm[Hg] 93 mm[Hg] [facility] Systolic blood 171 mm[Hg] 171 mm[Hg] [facility] [place] Body temperature 36.087208 36.158441 [facility] Respiratory rate 19 /min 19 /min [facility] Oxygen saturation 98 % 98 % [facility] Arterial blood [facility] by Pulse oximetry Heart rate 118 /min 118 /min [facility] Diastolic blood 94 mm[Hg] 94 mm[Hg] [facility] [place] Systolic blood 126 mm[Hg] 126 mm[Hg] [facility] Body temperature 36.708562 36.963131 [facility] Respiratory rate 19 /min 19 /min [facility] Oxygen saturation 97 % 97 % [facility] Arterial blood [facility] by Pulse oximetry Heart rate 95 /min 95 /min [facility] Diastolic blood 80 mm[Hg] 80 mm[Hg] [facility] Systolic blood 140 mm[Hg] 140 mm[Hg] [facility] Body temperature 36.494527 36.247418 [facility] Respiratory rate 17 /min 17 /min [facility] Oxygen saturation 94 % 94 % [facility] Arterial blood [facility] by Pulse oximetry Heart rate 103 /min 103 /min [facility] Diastolic blood 71 mm[Hg] 71 mm[Hg] [facility] Systolic blood 131 mm[Hg] 131 mm[Hg] [facility] Body temperature 36.519949 36.221215 [facility] Respiratory rate 20 /min 20 /min [facility] Oxygen saturation 93 % 93 % [facility] Arterial blood [facility] by Pulse oximetry Heart rate 93 /min 93 /min [facility] Body height 193.444866 193.317984 cm [facility] Diastolic blood 109 mm[Hg] 109 mm[Hg] [facility] [place] Systolic blood 150 mm[Hg] 150 mm[Hg] [facility] [place] Body temperature 36.627345 36.366328 [facility] Body temperature 36.576261 36.305199 [facility] Respiratory rate 20 /min 20 /min [facility] Heart rate 120 /min 120 /min [facility] Diastolic blood 95 mm[Hg] 95 mm[Hg] [facility] pressure Medical Center Systolic blood 126 mm[Hg] 126 mm[Hg] [facility] Systolic blood 138 mm[Hg] 138 mm[Hg] [facility] Body temperature 36.918884 36.540157 [facility] Respiratory rate 20 /min 20 /min [facility] Heart rate 113 /min 113 /min [facility] Diastolic blood 98 mm[Hg] 98 mm[Hg] [facility] [place] Body temperature 36.194670 36.266204 [facility] Respiratory rate 18 /min 18 /min [facility] Heart rate 95 /min 95 /min [facility] Diastolic blood 102 mm[Hg] 102 mm[Hg] [facility] [place] Systolic blood 142 mm[Hg] 142 mm[Hg] [facility] [place] Body temperature 36.947520 36.793396 [facility] Respiratory rate 20 /min 20 /min [facility] Heart rate 105 /min 105 /min [facility] Diastolic blood 82 mm[Hg] 82 mm[Hg] [facility] [place] Systolic blood 148 mm[Hg] 148 mm[Hg] [facility] [place] Respiratory rate 20 /min 20 /min [facility] Heart rate 116 /min 116 /min [facility] Diastolic blood 90 mm[Hg] 90 mm[Hg] [facility] Systolic blood 129 mm[Hg] 129 mm[Hg] [facility] [place] Oxygen saturation 98 % 98 % [facility] Bianca [facility] in Arterial blood [facility] by Pulse oximetry Body temperature 36.031531 36.643307 [facility] Respiratory rate 19 /min 19 /min [facility] Heart rate 114 /min 114 /min [facility] Diastolic blood 111 mm[Hg] 111 mm[Hg] [facility] Systolic blood 155 mm[Hg] 155 mm[Hg] [facility] Body temperature 36.211113 36.730429 [facility] Respiratory rate 18 /min 18 /min [facility] Heart rate 131 /min 131 /min [facility] Diastolic blood 111 mm[Hg] 111 mm[Hg] [facility] pressure [facility] Center Systolic blood 152 mm[Hg] 152 mm[Hg] [facility] Heart rate 130 /min 130 /min [facility] Diastolic blood 108 mm[Hg] 108 mm[Hg] [facility] pressure [facility] Center Systolic blood 153 mm[Hg] 153 mm[Hg] [facility] pressure [facility] Center Heart rate 113 /min 113 /min [facility] Diastolic blood 121 mm[Hg] 121 mm[Hg] [facility] pressure [facility] Center Systolic blood 150 mm[Hg] 150 mm[Hg] [facility] Body temperature 36.659104 36.983594 [facility] Respiratory rate 18 /min 18 /min [facility] Heart rate 124 /min 124 /min [facility] Diastolic blood 90 mm[Hg] 90 mm[Hg] [facility] Systolic blood 147 mm[Hg] 147 mm[Hg] [facility] Body temperature 36.805891 36.032451 [facility] Respiratory rate 17 /min 17 /min [facility] Body weight 78.852550 kg 78.291597 kg [facility] Body height 187.215906 187.860907 cm [facility] Body mass index 22.28 kg/m2 22.28 kg/m2 [facility] (BMI) [Ratio] Medical [facility] Body temperature 36.365865 36.076543 [facility] Respiratory rate 20 /min 20 /min [facility] Oxygen saturation 98 % 98 % [facility] Arterial blood [facility] by Pulse oximetry Oxygen saturation 99 % 99 % [facility] Arterial blood [facility] by Pulse oximetry Body weight 80.993126 kg 80.984090 kg [facility] Measured [facility] Oxygen saturation 96 % 96 % [facility] blood [facility] by Pulse oximetry Body height 177.969939 177.557838 cm [facility] Body mass index 25.3 kg/m2 25.3 kg/m2 [facility] (BMI) [Ratio] Medical [facility] ter Body temperature 36.959034 36.929547 [facility] Respiratory rate 20 /min 20 /min [facility] Heart rate 100 /min 100 /min [facility] Diastolic blood 84 mm[Hg] 84 mm[Hg] [facility] pressure [facility] Center Systolic blood 115 mm[Hg] 115 mm[Hg] [facility] Body temperature 36.243709 36.991864 [facility] Respiratory rate 20 /min 20 /min [facility] Heart rate 92 /min 92 /min [facility] Diastolic blood 112 mm[Hg] 112 mm[Hg] [facility] pressure [facility] Center Systolic blood 158 mm[Hg] 158 mm[Hg] [facility] Body temperature 36.565943 36.846893 [facility] Respiratory rate 20 /min 20 /min [facility] Heart rate 91 /min 91 /min [facility] Diastolic blood 93 mm[Hg] 93 mm[Hg] [facility] Systolic blood 138 mm[Hg] 138 mm[Hg] [facility] Body temperature 36.592373 36.951327 [facility] Respiratory rate 20 /min 20 /min [facility] Heart rate 98 /min 98 /min [facility] Diastolic blood 96 mm[Hg] 96 mm[Hg] [facility] Systolic blood 140 mm[Hg] 140 mm[Hg] [facility] [place] Body temperature 36.256685 36.946919 [facility] Respiratory rate 20 /min 20 /min [facility] Heart rate 100 /min 100 /min [facility] Diastolic blood 89 mm[Hg] 89 mm[Hg] [facility] pressure [facility] Center Systolic blood 149 mm[Hg] 149 mm[Hg] [facility] Body weight 70.677935 kg 70.373141 kg [facility] Measured [facility] Body weight 72.367732 kg 72.412496 kg [facility] Body weight 71.064119 kg 71.970325 kg [facility] Body height 193.482020 193.458898 cm [facility] Body mass index 19.29 kg/m2 19.29 kg/m2 [facility] osep (BMI) [Ratio] Medical [facility] Body weight 71.457996 kg 71.555474 kg [facility] Body height 193.277071 193.783942 cm [facility] Body mass index 19.29 kg/m2 19.29 kg/m2 [facility] Bianca osephs (BMI) [Ratio] Medical [facility] ter Oxygen saturation 98 % 98 % [facility] c[facility] in Arterial blood [facility] by Pulse oximetry Body temperature 37.890726 37.044568 [facility] Respiratory rate 20 /min 20 /min [facility] Heart rate 96 /min 96 /min [facility] Diastolic blood 98 mm[Hg] 98 mm[Hg] [facility] Systolic blood 152 mm[Hg] 152 mm[Hg] [facility] Body temperature 37.793511 37.516723 [facility] Respiratory rate 18 /min 18 /min [facility] Heart rate 95 /min 95 /min [facility] Diastolic blood 100 mm[Hg] 100 mm[Hg] [facility] Systolic blood 146 mm[Hg] 146 mm[Hg] [facility] Body temperature 37.440467 37.710173 [facility] Respiratory rate 18 /min 18 /min [facility] Heart rate 89 /min 89 /min [facility] Diastolic blood 87 mm[Hg] 87 mm[Hg] [facility] Systolic blood 138 mm[Hg] 138 mm[Hg] [facility] Body temperature 36.869915 36.318367 [facility] Respiratory rate 18 /min 18 /min [facility] Heart rate 86 /min 86 /min [facility] Diastolic blood 77 mm[Hg] 77 mm[Hg] [facility] Systolic blood 140 mm[Hg] 140 mm[Hg] [facility] Body temperature 37.556468 37.787921 [facility] Respiratory rate 19 /min 19 /min [facility] Heart rate 97 /min 97 /min [facility] Diastolic blood 99 mm[Hg] 99 mm[Hg] [facility] Systolic blood 133 mm[Hg] 133 mm[Hg] [facility] Oxygen saturation 95 % 95 % [facility] in Arterial blood [facility] by Pulse oximetry Oxygen saturation 99 % 99 % [facility] in Arterial blood [facility] by Pulse oximetry Oxygen saturation 96 % 96 % [facility] Bianca osephs in Arterial blood [facility] by Pulse oximetry Oxygen saturation 98 % 98 % [facility] Bianca osephs in Arterial blood [facility] by Pulse oximetry Body temperature 36.935432 36.058680 [facility] Respiratory rate 18 /min 18 /min [facility] Heart rate 98 /min 98 /min [facility] Diastolic blood 94 mm[Hg] 94 mm[Hg] [facility] Systolic blood 142 mm[Hg] 142 mm[Hg] [facility] Body temperature 36.406481 36.200077 [facility] Diastolic blood 89 mm[Hg] 89 mm[Hg] [facility] Systolic blood 138 mm[Hg] 138 mm[Hg] [facility] Patient Treatment Plan of Care Planned Activity Planned Date Details Description Data Source (s) Digoxin 0.125 MG Oral Tablet eCW1 ([facility] ) Metoprolol Succinate 100 MG eCW1 ([facility] ) 24 HR Isosorbide Mononitrate eCW1 ([facility] 30 MG Extended Release Oral Medical Practice ) Tablet 24 HR Nifedipine 30 MG eCW1 ([facility] Extended Release Oral [facility] ) Spironolactone 25 MG Oral eC W1 ([facility] Tablet Medical Practic e ) apixaban 5 MG Oral Tablet eC W1 ([facility] ) Hydralazine Hydrochloride 50 eCW1 ([facility] MG Oral Tablet Medical Pract ice ) Aspirin 81 MG Delayed Release eCW1 ([facility] Oral Tablet Medical Practic e ) atorvastatin 40 MG Oral eCW1 ([facility] Tablet Medical Practic e ) spironolactone 25 mg [facility] TabletDirections: 1 tablet C enter oral daily acetaminophen 500 mg [facility] TabletDirections: 1 tablet C enter oral every six hours PRN pain aspirin 81 mg tablet,delayed [facility] Medical release (DR/EC)Directions: 1 Center tablet oral daily apixaban (Eliquis) 5 mg [facility] TabletDirections: 1 tablet C enter oral twice a day digoxin 125 mcg [facility] TabletDirections: 1 tablet C enter oral daily aspirin 81 mg tablet,delayed [facility] Medical release (DR/EC) Center isosorbide mononitrate 30 mg [facility] Medical Tablet Extended Release 24 hr Center metoprolol succinate 50 mg S [facility] Medical Tablet Extended Release 24 C enter hrDirections: 1 tablet oral daily hydrALAZINE 100 mg [facility] TabletDirections: 1 tablet C enter oral every eight hours potassium chloride 10 mEq Sa int [facility] Medical Tablet Extended Center ReleaseDirections: 1 tablet oral daily metoprolol succinate 50 mg S [facility] Medical Tablet Extended Release 24 hr Center potassium chloride 10 mEq Sa [facility] Medical Tablet Extended Release Cent er isosorbide mononitrate 30 mg [facility] Medical Tablet Extended Release 24 C enter hrDirections: 1 tablet oral daily Cefuroxime 500 MG Oral Tablet [facility] 24 HR Nifedipine 30 MG eCW1 ([facility] Extended Release Oral [facility]) 24 HR Isosorbide Mononitrate eCW1 ([place] 30 MG Extended Release Oral [facility]) Tablet Digoxin 0.125 MG Oral Tablet eCW1 ([facility]) Aspirin 81 MG Delayed Release eCW1 ([facility] Oral Tablet [facility]) Metoprolol Succinate 100 MG eCW1 ([facility]) Hydralazine Hydrochloride 50 eCW1 ([place] MG Oral Tablet [facility]) atorvastatin 40 MG Oral eCW1 ([facility] Tablet Medical [facility]) apixaban 5 MG Oral Tablet eC W1 ([facility] [Eliqu] Medical Practic e [facility]) Spironolactone 25 MG Oral eC W1 ([facility] Tablet Medical [facility]) Acetaminophen 500 MG Oral Sa int [facility] Medical Tablet Center Spironolactone 25 MG Oral Sa int [facility] Medical Tablet Center Potassium Chloride 10 MEQ Sa [facility] Medical Extended Release Oral Tablet Center 24 HR metoprolol succinate 50 [facility] Medical MG Extended Release Oral [facility] Tablet 24 HR Isosorbide Mononitrate [facility] 30 MG Extended Release Oral Center Tablet 24 HR Isosorbide Mononitrate [facility] 30 MG Extended Release Oral Center Tablet Hydralazine Hydrochloride 100 [facility] Medical MG Oral Tablet Center digoxin 125 mcg [facility] TabletDirections: 1 tablet C enter oral daily Aspirin 81 MG Delayed Release [facility] Oral Tablet Center apixaban 5 MG Oral Tablet [facility] [place] benzonatate 100 MG Oral [facility] Capsule Center Prednisone 20 MG Oral Tablet [facility] Potassium Chloride 10 MEQ eC W1 ([facility] Extended Release Oral [facility]t [facility]) Albuterol 0.09 MG/ACTUAT [facility] Metered Dose Inhaler Center 120 ACTUAT Budesonide 0.16 S [facility] MG/ACTUAT / formoterol Cente r fumarate 0.0045 MG/ACTUAT Metered Dose Inhaler [Symbicort] 24 HR Isosorbide Mononitrate [facility] 30 MG Extended Release Oral Center Tablet Digoxin 0.125 MG Oral Tablet [facility] Hydralazine Hydrochloride 50 [facility] MG Oral Tablet Center apixaban 5 MG Oral Tablet [facility] Services [[facility]] [place] atorvastatin 40 MG Oral [facility] Spironolactone 25 MG Oral [facility] 24 HR metoprolol succinate [facility] 100 MG Extended Release Oral Center Tablet potassium chloride ([facility] M20) 20 mEq tablet,ER Center particles/crystals potassium chloride ([facility] M20) 20 mEq tablet,ER Center particles/crystalsDirections: 1 tablet oral daily 24 HR Isosorbide Mononitrate [facility] 30 MG Extended Release Oral Center Tablet Spironolactone 25 MG Oral [facility] Prednisone 10 MG Oral Tablet [facility] 24 HR metoprolol succinate [facility] 100 MG Extended Release Oral Center Tablet Hydralazine Hydrochloride 50 [facility] MG Oral Tablet Center Folic Acid 1 MG Oral Tablet [facility] atorvastatin 40 MG Oral [facility] apixaban 5 MG Oral Tablet [facility] [Eliqu] [place] carbamide peroxide 65 [facility]/ML [facility]
--- NOTE | 2020-06-27 14:16 | PDOC ---
Attending Attestation - Resident Resident Name: JeramyFabián - ED Attending Attestation I have performed the following: I have examined & evaluated the patient, The case was reviewed & discussed with the resident, I agree w/resident's findings & plan, Exceptions are as noted - HPI HPI: 70 yo M history HL, HTN, COPD, afib, chronic EtOH use presents with weakness for the past two days. He has had similar symptoms in the past. Associated with SOB, which he has also had in the past. Denies SOB at present. Has not taken his BP meds for days. Drinks hard liquor regularly. - Physicial Exam PE: GENERAL: Awake, alert, and fully oriented, in no acute distress HEAD: No signs of trauma EYES: PERRLA, EOMI, sclera anicteric, conjunctiva clear ENT: Auricles normal inspection, hearing grossly normal, nares patent, oropharynx clear without exudates. Moist mucosa NECK: Normal ROM, supple, no lymphadenopathy, JVD, or masses LUNGS: Breath sounds equal, clear to auscultation bilaterally. No wheezes, and no crackles HEART: Regular rate and rhythm, normal S1 and S2, no murmurs, rubs or gallops ABDOMEN: Soft, nontender, normoactive bowel sounds. No guarding, no rebound. No masses EXTREMITIES: Normal range of motion, no edema. No clubbing or cyanosis. No cords, erythema, or tenderness NEUROLOGICAL: Cranial nerves II through XII grossly intact. Normal speech, normal gait. Motor and sensation intact SKIN: Warm, dry, normal turgor, no rashes or lesions noted. - Medical Decision Making 06/27/20 16:28 Pt attempting to leave ED. I spoke to him regarding his K, likely hemolyzed, but if it is in fact so elevated, it is life threatening. He agrees to stay in ED. 06/27/20 17:05 Pt eloped from the ED. He removed his IV and left it on the bed. Will call him to report that his repeat K and his CXR are both normal. 06/27/20 17:07 Security found patient in wheelchair outside the hospital entrance, returned him to the ED. Results were conveyed to patient, he states he wants to go home. No emergent condition at present. Stable for [place] home. Discharge - Discharge Information Problems reviewed: Yes Clinical Impression/Diagnosis: Shortness of breath Condition: Stable Disposition: HOME - Follow up/Referral - Patient Discharge Instructions Patient Printed Discharge Instructions: DI for Shortness of Breath - Post Discharge Activity
[2020-06-27 14:21] VITALS: BMI 40.1
[2020-06-27 14:58] LABS: BASO % 1.3 % (0-2.0); EOS % 0.6 % (0-4.5); HEMATOCRIT 38.2 % (35.4-49); HEMOGLOBIN 12.4 GM/dL (11.7-16.9); LYMPH % 21.6 % (8-40); MCHC 32.5 g/dl (32.0-35.9); MEAN CELL VOLUME 89.3 fl (80-96); MEAN PLT VOLUME 8.1 fl (7.5-11.1); MONO % 6.7 % (3.8-10.2); NEUT % 69.8 % (42.8-82.8); PLATELET COUNT 279 K/MM3 (134-434); RBC 4.28 M/mm3 (4.00-5.60); RDW 20.3 % (11.9-15.9)
--- NOTE | 2020-06-27 15:00 | PDOC ---
History of Present Illness - General Chief Complaint: Shortness of Breath Stated Complaint: BLOOD PRESSURE PROBLEM Time Seen by Provider: 06/27/20 14:04 - History of Present Illness Initial Comments: 06/27/20 14:56 HPI: This is a 70 y/o male with a pmh of HLD, HTN, COPD not on home O2, afib on eliquis, and chronic etoh BIBA to the ED because of 2 days of intermittent generalized weakness. He reports he started having the weakness two days ago, and that he has had it frequently before usually when he doesn't sleep well. Says that he hasn't slept well for the past 3 nights. The weakness is accompanie d by mild SOB. Denies any CP, palpitations, fever/chills, N/V or sick contacts. He reports that he has cut his etoh consumption down to 2 ounces of vodka per day, and drank earlier. He reports that he had a cath done recently which was clear. Not currently having any SOB. ROS: GENERAL/CONSTITUTIONAL: No fever/chills, diaphoresis. Admits to generalized weakness. HEENT: No blurry vision. No sore throat. CARDIOVASCULAR: No chest pain, palpitations or peripheral edema RESPIRATORY: No shortness of breath, dyspnea with exertion, cough, wheezing, or hemoptysis. GASTROINTESTINAL: No abdominal pain, nausea, vomiting GENITOURINARY: No dysuria, frequency MUSCULOSKELETAL: No joint or muscle swelling or pain. NEUROLOGIC: No headache, vertigo, focal weakness, loss of consciousness, or change in strength/sensation. ENDOCRINE: No increased thirst. No unexplained weight loss. HEMATOLOGIC/LYMPHATIC: No anemia or history of blood clots. PMH: HLD, HTN, COPD not on home O2, afib on eliquis, and chronic etoh PSx: Denied Social Hx: Daily etoh, tobacco Meds: See nurse note Allergies: See nurse note PE: GENERAL: Awake, alert, and fully oriented, in no acute distress. Non toxic appearing. Not in respiratory distress. Speaking full sentences. HEENT: Normocephalic, atraumatic. PERRLA, EOMI NECK: Normal ROM and supple. No lymphadenopathy, JVD, or masses. CARDIOVASCULAR: Afib. PULMONARY: No respiratory distress. Breath sounds equal, clear to auscultation bilaterally. No wheezes, rales or rhonchi. ABDOMEN: Soft, nontender, no guarding, no rebound. EXTREMITIES: Normal range of motion, no edema or erythema, no calf tenderness. NEUROLOGICAL: Cranial nerves II through XII grossly intact. Normal speech. SKIN: Warm, Dry. Normal capillary refill. MDM: This is a 70 y/o male with a pmh of HLD, HTN, COPD not on home O2, afib on eliquis, and chronic etoh BIBA to the ED because of 2 days of intermittent generalized weakness. - Reports daily alcohol consumption, last drink this morning - Generalized weakness. No focal neurological deficits on exam - No accompanying CP 06/27/20 15:17 - Patient wants to leave, agreed to stay until lab results - CBC WNL 06/27/20 15:34 - K 8.2 hemolyzed. Will redraw. - No peaked T waves on EKG - 5mg Metoprolol for BP. - Patient still wants to go home. Explained the need to recheck K and health consequences 06/27/20 16:59 - Patient eloped. Repeat K is 4.3 - CXR with no acute abnormalities 06/27/20 17:10 - Patient returned to ED - Results were explained - Still wants to go home - Stable to d/c with return precautions 06/28/20 12:26 Past History - Medical History Allergies/Adverse Reactions: Allergies Allergy/AdvReac Type Severity Reaction Status Date / Time lisinopril Allergy Severe Swelling Verified 06/28/20 07:18 enalapril Allergy Swelling Verified 06/28/20 07:18 Home Medications: Ambulatory Orders Hydralazine HCl 10 mg PO DAILY 01/27/20 Apixaban [Eliquis] 5 mg PO BID 02/18/20 Metoprolol Succinate 75 mg PO BID 03/23/20 Albuterol Sulfate Inhaler - [Ventolin HFA Inhaler -] 1 - 2 inh PO Q4H #1 inhaler 05/31/20 Anemia: No Asthma: No Cancer: No Cardiac Disorders: Yes (Afib (on Eliquis), [facility]) CVA: No COPD: Yes CHF: No DVT: No Dementia: No Diabetes: No Dialysis: No GI Disorders: No Disorders: No HTN: Yes Hypercholesterolemia: Yes Kidney Stones: No Liver Disease: No Psychiatric Problems: Yes (Alcohol Use Disorder) Seizures: Yes (09/2018 hospitalization) Thyroid Disease: No Lung CA: No - Surgical History Abdominal Surgery: No Appendectomy: No Cardiac Surgery: No Cholecystectomy: No Gastric Stapling: No GI Surgery: No Lung Surgery: No Neurologic Surgery: No - Immunization History Td Vaccination: Yes TDAP Vaccination: Yes Immunization Up to Date: Yes - Psycho-Social/Smoking History Smoking History: Current every day smoker Have you smoked in the past 12 months: No Number of Cigarettes Smoked Daily: 3 Information on smoking cessation initiated: No 'Breaking Loose' booklet given: 03/31/20 - Substance Abuse Hx (Audit-C & DAST Scrn) How often the patient has a drink containing alcohol: Monthly or less Number of drinks the patient has on a typical day: 1 or 2 How often the patient has six or more drinks on one occasion: Less than monthly Score: In Men: 4 or > Positive; In Women: 3 or > Positive: 2 Screen Result (Pos requires Nsg. Audit-10AR): Negative In the last yr the pt used illegal drug/Rx for NonMed reason: No Score: Yes response is considered Positive: 0 Screen Result (Positive result requires Nsg. DAST-10): Negative *Physical Exam - Vital Signs Last Vital Signs Temp Pulse Resp BP Pulse Ox 97.9 F 66 16 151/89 96 06/27/20 13:58 06/27/20 13:58 06/27/20 13:58 06/27/20 13:58 06/27/20 13:58 ED Treatment Course - LABORATORY CBC & Chemistry Diagram: 06/27/20 14:45 06/27/20 16:00 Discharge - Discharge Information Problems reviewed: Yes Clinical Impression/Diagnosis: Shortness of breath Condition: Stable Disposition: HOME - Follow up/Referral - Patient Discharge Instructions Patient Printed Discharge Instructions: DI for Shortness of Breath Additional Instructions: You came to the ED because of generalized weakness and SOB You had no SOB during your visit There were no acute findings on your labs or imaging Followup with your primary care in the next week Return to the ED with any new or concerning symptoms Return with worsening weakness, SOB, CP, or loss of consciousness. - Post Discharge Activity
[2020-06-27 15:08] LABS: INR 0.97 (0.83-1.09); PROTHROMBIN TIME (PATIENT) 11.5 SEC (9.7-13.0)
[2020-06-27 15:10] LABS: ACTIVATED PTT 30.6 SECONDS (25.2-36.5)
[2020-06-27] MEDS ORDERED: METOPROLOL TARTRATE 5 MG/5 ML VIAL IVPUSH ONE (15:17)
[2020-06-27 15:35] LABS: ALBUMIN 2.8 g/dl (3.4-5.0); BLOOD UREA NITROGEN 13.1 mg/dL (7-18); CHLORIDE 108 mmol/L (98-107); CO2 30 mmol/L (21-32); CREATININE 1.1 mg/dL (0.55-1.3); GLUCOSE,RANDOM 104 mg/dL (74-106); SODIUM 139 mmol/L (136-145)
[2020-06-27 15:36] LABS: BILIRUBIN,TOTAL 0.4 mg/dL (0.2-1); TOT PROT 6.6 g/dl (6.4-8.2)
[2020-06-27 15:37] LABS: ALK PHOS 92 U/L (45-117)
[2020-06-27 15:47] LABS: ANION GAP 2 MMOL/L (8-16); SGOT/AST 63 U/L (15-37); SGPT/ALT 15 U/L (13-61)
[2020-06-27 15:53] LABS: POTASSIUM 8.2 mmol/L (3.5-5.1)
[2020-06-27] MEDS ORDERED: METOPROLOL TARTRATE 5 MG/5 ML VIAL ONE (15:58)
[2020-06-27 16:11] VITALS: PULSE 88
[2020-06-27 16:40] VITALS: BP 157/114; TEMP 98.6
[2020-06-27 16:52] LABS: BLOOD UREA NITROGEN 12.5 mg/dL (7-18); CALCIUM 8.2 mg/dL (8.5-10.1); CREATININE 0.9 mg/dL (0.55-1.3); POTASSIUM 4.3 mmol/L (3.5-5.1)
--- NOTE | 2020-06-28 08:48 | EKG ---
Test Reason : Blood Pressure : / mmHG Vent. Rate : 105 BPM Atrial Rate : 070 BPM P-R Int : 000 ms QRS Dur : 102 ms QT Int : 340 ms P-R-T Axes : 000 044 121 degrees QTc Int : 449 ms ATRIAL FIBRILLATION WITH RAPID VENTRICULAR RESPONSE SEPTAL INFARCT (CITED ON OR BEFORE 03-NOV-2019) ABNORMAL ECG WHEN COMPARED WITH ECG OF 01-JUN-2020 11:53, NONSPECIFIC T WAVE ABNORMALITY NO LONGER EVIDENT IN INFERIOR LEADS NONSPECIFIC T WAVE ABNORMALITY NOW EVIDENT IN LATERAL LEADS Confirmed by Alexander Rosa MD ([id number]) on 06/28/2020 8:46:51 AM Referred By: Confirmed By:Alexander Rosa MD
== END 2020-06-27 17:16 | disposition home or self-care (01) ==
LOC: JER 13:31
PROC: 3E033GC Introduction of Other Therapeutic Substance into Peripheral Vein, Percutaneous Approach (ICD-10-PCS; principal; 2020-06-27)
DX: R06.02 Shortness of breath (principal)
CPT/HCPCS: 36415; 71045-TC-FY; 80048; 80053; 82550; 82553; 84484; 85025; 85610; 85730; 93005; 93010; 99285-25

== ENCOUNTER 2020-06-28 05:18 | Emergency (ER) | payer OTHER ==
[2020-06-28 05:32] VITALS: TEMP 97.7; BMI 29.8
--- OUTSIDE RECORDS SUMMARY | 2020-06-28 05:33 | XMS ---
:1950 Author Organization [facility] Care Team Providers Name Role Phone Donald Sabillon MD Unavailable Unavailable Donald Sabillon MD Unavailable Unavailable Donald Sabillon MD Unavailable Unavailable Donald Sabillon MD Unavailable Unavailable Donald Sabillon MD Unavailable Unavailable Donald Sabillon MD Unavailable Unavailable Donald Sabillon MD Unavailable Unavailable Donald Sabillon MD Unavailable Unavailable ED STAFF PHYSICIANAMARA Unavailable Unavailable MELIZA Gant Unavailable Unavailable Herrera Valencia Unavailable [phone] ED STAFF PHYSICIAN Unavailable Unavailable ED STAFF [...] Unavailable Marcelle MD, Marco Unavailable Unavailable Marcelle , Marco Unavailable Unavailable ED STAFF PHYSICIAN, ASMA Unavailable [...] is protected by Article 27-F of the [facility] Public Health law. If you continue you may haveaccess to information: Regarding HIV / AIDS; Provided by facilities licensed or operated by the [facility] Office of Mental Health; or Provided by the [facility] Office for People With Developmental Disabilities. If such information is present, then the following [facility] mandated warning applies: This information has been [...] law may result in a fine or assisted sentence or both. A general authorization for the release of medical or other information is NOT sufficient authorization for further disclosure. Allergies and Adverse Reactions Type Description Substance Reaction Status Data Source(s ) Drug allergy Lisinopril Lisinopril rash Active eCW1 ([facility]) Adverse Reaction Lisinopril Lisinopril rash Active eCW1 ( [facility]) No Information No Information No Information eC W1 ([facility]) No Information No Information No Information eC W1 ([facility]) No Information No Information No Information eC W1 ([facility]) Propensity to Propensity to No Known allergies eCW1 ([facility] adverse reactions adverse reactions [facility]disorder[facility] (disorder[facility]) Encounters Encounter Providers Location Date Indications Data Source(s ) (TEL) [address] 06/02/2020 eCW1 (S aint [facility] 12:00:[address] [facility] EDT Practice ) Outpatient Attender: MARCO H 05/25/2020 [facility] MARCELLE 12:00:00 PM Medical Cente r ARNABAdmitter: EDT MARCO MARCELLE MARCO Attender: Marco Positive 05/25/2020 [facility] ( [facility] Garcia MD Directions 12:00:[address] [facility] EDT - Center) 05/25/2020 12:00:00 PM EDT Emergency Attender: STAFF H 05/01/2020 [facility] ED STAFF 09:21:00 PM Medical Cente r PHYSICIAN EDT - 05/02/2020 07:50:00 AM EDT Patient discharged. Emergency Attender: ED STAFF H 05/01/2020 03:28:00 AM [facility] PHYSICIANAttender: STAFF ED EDT - 05/01/2020 [facility] STAFF PHYSICIANAdmitter: ED 05:36:00 AM EDT STAFF PHYSICIAN Patient discharged. Emergency Attender: ED STAFF H 04/30/2020 07:05:00 PM [facility] PHYSICIANAttender: STAFF ED EDT - 04/30/2020 [facility] STAFF PHYSICIANAdmitter: ED 11:21:00 PM EDT STAFF PHYSICIAN Patient discharged. Emergency Attender: MADAN ED STAFF H 03/30/2020 07:35:00 PM [facility] PHYSICIANAttender: STAFF ED EDT - 03/30/2020 [facility] STAFF PHYSICIANAdmitter: MADAN 08:50:00 PM EDT ED STAFF PHYSICIAN Patient discharged. Emergency Attender: MADAN ED STAFF H 03/29/2020 04:28:00 PM [facility] PHYSICIANAttender: ED STAFF EDT - 03/29/2020 [facility] PHYSICIANAttender: STAFF ED 08:45:00 PM EDT STAFF PHYSICIANAdmitter: MADAN ED STAFF PHYSICIAN Patient discharged. [address] 03/27/2020 eCW1 (S aint Office [facility] 12:00:00 AM EDT [facility]) Emergency Attender: MADAN H 03/09/2020 [facility] ED STAFF 04:23:00 PM EDT - [facility] PHYSICIANAttender 03/09/2020 : STAFF ED STAFF 10:49:00 PM EDT PHYSICIANAdmitter : [facility] ED STAFF PHYSICIAN Patient discharged. Emergency Attender: ED STAFF H 02/20/2020 08:56:00 PM [facility] PHYSICIANAttender: MELIZA EDT - 02/20/2020 [facility] RAUL Yousif: STAFF ED 10:50:00 PM EDT STAFF PHYSICIANAdmitter: ED STAFF PHYSICIANReferrer: STAFF ED STAFF PHYSICIAN Patient discharged. Emergency Attender: MADAN ED STAFF H 02/08/2020 05:07:00 PM [facility] PHYSICIANAttender: AMARA ED EDT - 02/08/2020 [facility] STAFF PHYSICIANAttender: STAFF 06:02:00 PM EDT ED STAFF PHYSICIANAdmitter: MADAN ED STAFF PHYSICIAN Patient discharged. Emergency Attender: MELIZA CARTER H 02/06/2020 06:33:00 PM [facility] WAttender: STAFF ED STAFF EDT - 02/06/2020 [facility] PHYSICIANAdmitter: GRAVES 11:16:00 PM EDT RAUL W Patient discharged. Emergency Attender: MADAN ED STAFF 02/01/2020 01:51:00 PM [facility] PHYSICIANAttender: STAFF ED EDT - 02/01/2020 [facility] STAFF PHYSICIANAdmitter: MADAN 05:09:00 PM EDT ED STAFF PHYSICIAN Patient discharged. Emergency Attender: AIDAN Yu 01/29/2020 01:19:00 PM [facility] KAttendarin: STAFF ED STAFF EDT - 01/29/2020 [facility] PHYSICIANAdmitter: AIDAN 10:03:00 PM EDT MILTON Joaquin Patient discharged. Emergency Attender: ED STAFF H 01/24/2020 05:35:00 PM [facility] PHYSICIANAttender: STAFF ED EDT - 01/24/2020 [facility] STAFF PHYSICIANAdmitter: ED 08:46:00 PM EDT STAFF PHYSICIAN Patient discharged. Emergency Attender: ED STAFF H 01/22/2020 10:03:00 PM [facility] PHYSICIANAttender: STAFF ED EDT - 01/22/2020 [facility] STAFF PHYSICIANAdmitter: ED 11:37:00 PM EDT STAFF PHYSICIAN Patient discharged. [address] 01/07/2020 eCW1 (S aint Office [facility] Street [facility] 12:00:00 AM EDT [facility]) [address] 01/06/2020 eCW1 (S aint Office [facility] Street [facility] 12:00:00 AM EDT [facility]) Emergency Attender: AMARA Yu 01/03/2020 [facility] ED STAFF 06:01:00 AM EDT - [facility] PHYSICIANAttender 01/03/2020 : STAFF ED STAFF 11:18:00 AM EDT PHYSICIANAdmitter : AMARA ED STAFF PHYSICIAN Patient discharged. Emergency Attender: ED STAFF H 01/01/2020 07:56:00 AM [facility] PHYSICIANAttender: STAFF ED EDT - 01/01/2020 [facility] [place] STAFF PHYSICIAN 03:06:00 PM EDT Patient discharged. Emergency Attender: MADAN ED STAFF H 12/30/2019 12:09:00 PM [facility] PHYSICIANAttender: STAFF ED EDT - 12/30/2019 [facility] [place] STAFF PHYSICIANAdmitter: MADAN 10:59:00 PM EDT ED STAFF PHYSICIAN Patient discharged. Emergency Attender: MADAN ED STAFF H 12/03/2019 01:29:00 PM [facility] PHYSICIANAttender: ED STAFF EDT - 12/03/2019 [facility] PHYSICIANAttender: STAFF ED 07:01:00 PM EDT STAFF PHYSICIANAdmitter: MADAN ED STAFF PHYSICIAN Patient discharged. Emergency Attender: MADAN ED STAFF H 11/30/2019 05:59:00 PM [facility] PHYSICIANAttender: STAFF ED EDT - 11/30/2019 [facility] STAFF PHYSICIANAdmitter: MADAN 10:20:00 PM EDT ED STAFF PHYSICIAN Patient discharged. [address] 11/25/2019 eCW1 (S aint Office [facility] 12:00:00 AM [facility]) Emergency Attender: MADAN Yu 11/04/2019 [facility] ED STAFF 04:09:00 PM [facility] - [facility] PHYSICIANAttender 11/04/2019 : STAFF ED STAFF 07:26:00 PM EST PHYSICIANAdmitter : MADAN ED STAFF PHYSICIAN Patient discharged. Emergency Attender: MADAN ED STAFF H 11/02/2019 03:12:00 PM [facility] PHYSICIANAttender: STAFF ED EST - 11/02/2019 [facility] STAFF PHYSICIANAdmitter: MADAN 06:35:00 PM EST ED STAFF PHYSICIAN Patient discharged. Emergency Attender: AMARA ED STAFF H 11/02/2019 09:16:00 AM [facility] PHYSICIANAttender: STAFF ED EST - 11/02/2019 [facility] STAFF PHYSICIANAdmitter: 11:12:00 AM EST [place] ED STAFF PHYSICIAN Patient discharged. Emergency Attender: AMARA ED STAFF H 11/01/2019 03:26:00 PM [facility] PHYSICIANAttender: STAFF ED [facility] - 11/01/2019 [facility] STAFF PHYSICIANAdmitter: 04:59:00 PM EST [place] ED STAFF PHYSICIAN Patient discharged. Inpatient Attender: KEON HERBERT H-HAL5 11/01/2019 08:57:00 [facility] YAttender: STAFF ED STAFF AM [facility] - 11/01/2019 [facility] PHYSICIANAdmitter: KEON GONZALES 01:59:00 PM EST KEON YReferrer: KEON HERBERT Y Patient discharged. Emergency Attender: MADAN ED STAFF H 10/31/2019 02:52:00 PM [facility] PHYSICIANAttender: STAFF ED [facility] - 10/31/2019 [facility] STAFF PHYSICIANAdmitter: MADAN 04:39:00 PM EST ED STAFF PHYSICIAN Patient discharged. Emergency Attender: STAFF ED STAFF 10/29/2019 10:51:00 PM [facility] PHYSICIAN EST - 10/30/2019 10:47:00 [place] PM EST Patient discharged. Emergency Attender: ED STAFF H 10/29/2019 02:27:00 PM [facility] PHYSICIANAttender: STAFF ED [facility] - 10/29/2019 [facility] STAFF PHYSICIANAdmitter: ED 05:28:00 PM EST STAFF PHYSICIAN Patient discharged. [address] 09/24/2019 eCW1 (S aint Office [facility] Street [facility] 12:00:00 AM [facility]) Emergency Attender: AMARA Yu 09/06/2019 [facility] ED STAFF 05:21:00 PM [facility] - [facility] PHYSICIANAttender 09/06/2019 : STAFF ED STAFF 08:10:00 PM EST PHYSICIANAdmitter : [place] ED STAFF PHYSICIAN Patient discharged. Emergency Attender: MELIZA Yu 09/03/2019 10:20:00 PM [facility] Nica: STAFF ED STAFF [facility] - 09/04/2019 [facility] PHYSICIANAdmitter: MELIZA 04:00:00 PM EST RAUL W Patient discharged. Inpatient Attender: KEON HERBERT H-HAL5 08/30/2019 06:16:00 [facility] YAttender: STAFF ED STAFF PM EST - 08/31/2019 [facility] PHYSICIANAdmitter: KEON CHRISTIAN 10:35:00 AM EST KEON YReferrer: KEON HERBERT Y Patient discharged. Emergency Attender: MADAN ED STAFF H 08/29/2019 04:21:00 PM [facility] PHYSICIANAttender: STAFF ED EST - 08/29/2019 [facility] STAFF PHYSICIANAdmitter: MADAN 09:56:00 PM EST ED STAFF PHYSICIAN Patient discharged. Emergency Attender: SIOMARA ED STAFF H 08/28/2019 12:52:00 PM [facility] PHYSICIANAttender: STAFF ED EST - 08/29/2019 [facility] STAFF PHYSICIANAdmitter: SIOMARA 12:01:00 AM EST ED STAFF PHYSICIAN Patient discharged. Emergency Attender: STAFF ED STAFF H 08/06/2019 01:17:00 AM [facility] PHYSICIAN EST - 08/06/2019 03:36:00 Center AM EST Patient discharged. [address] [place] 07/26/2019 12:00:00 AM eCW1 ([facility]) Emergency H 06/26/2019 06:50:00 AM [facility] EDT - 06/26/2019 [facility] 09:44:00 AM EDT Patient discharged. Outpatient Attender: Donald Yu 03/26/2019 [facility] Sab[facility] MDAdmitter: 11:03:00 AM EDT Medical Center Donald Sabillon MDReferrer: Donald Sabillon MD Attender: [facility] 03/26/2019 NEXT N ([facility] 11:03:00 AM EDT [facility] 03/26/2019 Center) 11:03:00 AM EDT [address] 03/26/2019 eCW1 (S aint Office [facility] 12:00:00 AM EDT [facility]) [address] 03/10/2019 eCW1 (S aint Office [facility] 12:00:00 AM EDT [facility]) Emergency H 02/12/2019 [facility] 11:47:00 PM EDT Medical C enter Emergency H 02/12/2019 [facility] 03:38:00 PM EDT Medical C enter Emergency H 02/04/2019 [facility] 08:03:00 PM EDT Medical C enter [facility] [address] 01/28/2019 eCW1 (S aint [facility] 12:00:00 AM EDT [facility]) [address] 01/21/2019 eCW1 (S [facility]int Office [facility] 12:00:00 AM EDT - [facility] 01/21/2019 [facility]) 12:00:00 AM EDT [address] [address] [address] 01/21/2019 eCW1 (S [facility]int [facility] 12:00:00 AM EDT [facility]) [address] [address] [address] 01/14/2019 eCW1 (S [facility] 01:15:00 PM EDT - [facility] Medical 01/14/2019 Practice PC) 01:15:00 PM EDT [address] 01/14/2019 eCW1 (S [facility]int Office [facility] 10:15:00 AM EDT - [facility] 01/14/2019 [facility]) 10:15:00 AM EDT [address] [address] [address] 01/11/2019 eCW1 (S [facility]int [facility] 12:00:00 AM EDT [facility]) Inpatient Attender: Osama H-STEP 01/07/2019 [facility] SayMonidmitter: 04:14:00 AM EDT - [facility] Osane 01/12/2019 Alyerrer: 03:41:00 PM EDT [facility] Emergency H 01/06/2019 [facility] 07:58:00 PM EDT Medical C enter Emergency H 01/05/2019 [facility] 07:32:00 PM EDT Medical C enter [address] [address] [address] 12/30/2018 eCW1 (S [facility] 12:00:00 AM EDT [facility]) Emergency H 12/29/2018 [facility] 11:20:00 AM EDT Medical C enter Inpatient Attender: MATTHEWA ED H-STEP 12/17/2018 [facility] STAFF 03:23:00 PM EDT - Medical Center PHYSICIANAdmitter: 12/20/2018 [facility] ED STAFF 02:03:00 PM EDT PHYSICIANReferrer: [facility] ED STAFF PHYSICIAN [address] 12/14/2018 eCW1 (S aint Office [facility] Street [facility] 12:00:00 AM [facility]) Outpatient Attender: Donald Yu 11/26/2018 [facility] MDAdmitter: 09:07:00 AM [facility] Donald Sabillon MDReferrer: Donald Sabillon MD [facility] 11/26/2018 [facility]EXT[facility] ( int Center 09:07:00 AM [facility] 11/26/2018 Center) 09:07:00 AM EST [address] 11/12/2018 eCW1 (S aint Office [facility] Street [facility] 12:00:00 AM [facility]) [address] [place] [address] [address] 11/12/2018 eCW1 ([facility] Street [facility] 12:00:00 AM [facility]) [address] [place] [address] [address] 11/05/2018 eCW1 ([facility] Street [facility] 12:00:00 AM [facility]) [place] [address] 10/26/2018 eCW1 ([facility] Street [facility] 12:00:00 AM [facility]) Immunizations Vaccine Date Status Description Data Source(s) No Known Immunizations completed eCW1 ([facility]) No Known Immunizations completed eCW1 ([facility]) No Known Immunizations completed eCW1 ([facility]) No Known Immunizations completed eCW1 ([facility]) Medications Medication Brand Start Product Dose Route Administrative Pharmacy [facility] Indications Reaction Description Data Name Date Form Instructions Instructions Source(s) Aspirin 81 Aspiri 04/25/ Tablet Orally 81 MG Orally complet 1 tablet eCW1 MG Delayed n 2019 Delayed Once a day ed ([facility] Release Adult 12:00: Release [facility] s Oral Tablet Low 00 AM Medical Aspirin Dose EDT Practice Adult Low ) Dose 24 HR Isosor 04/25/ Tablet Orally 30 MG Orally complet 1 tablet in eCW1 Isosorbide bide 2019 Extended Once a day ed the [facility] 12:[facility]: Release J osephs 30 MG [...] a day ed (Krystina t Oral Tablet [facility]) HydrALAZINE Tablet Orally 50 MG Orally complet 2 tablets eCW1 HCl Three times a ed ([facility]) atorvastati Atorva Tablet Orally 40 MG Orally complet 1 tablet eCW1 n 40 MG statin Once a day ed (Asa nt Oral Tablet Calciu Victor Hugo s Atorvastati [facility]) 24 HR NIFEdi Tablet Orally 30 [...] Breath Inhalation Destiny Activate every 6 hrs [facility]) Hydralazine HydrAL Tablet Orally 100 MG Orally complet 1 tablet eCW1 Hydrochlori AZINE Three times a ed ( de 100 MG HCl day Destiny Oral Tablet Medical HydrALAZINE [facility] HCl ) apixaban 5 Eliqui Tablet Orally 5 MG Orally complet 1 tablet eCW1 MG Oral s Twice a day ed (Krystina t Tablet Destiny [Eliquis] Medical Practice ) 24 HR NIFEdi Tablet Orally 30 MG [...] Breath Inhalation Destiny Activate every 6 hrs [facility]) 24 HR Metopr Capsule Orally 100 MG Orally complet 1 capsule eCW1 metoprolol olol ER 24 Twice a day ed ( Saint succinate Succin Hour Destiny 100 MG ate [facility] Extended Practice Release ) Oral Tablet Metoprolol Succinate apixaban 5 Eliqui Tablet Orally 5 MG Orally complet 1 tablet eCW1 MG Oral s Twice a day ed (Krystina t Tablet [place]iny [Eliquis] Medical Practice ) 120 ACTUAT Symbic Aerosol Inhala 160-4.5 MCG/ACT complet 2 puffs eCW1 Budesonide ort tion Inhalation ed (Sa int 0.16 Twice a day Destiny MG/ACTUAT / Medical formoterol [facility] fumarate ) 0.0045 MG/ACTUAT Metered Dose Inhaler [Symbicort] 24 HR Metopr Capsule Orally 100 MG Orally complet 1 capsule eCW1 metoprolol olol ER 24 Twice a day ed ( Saint succinate Succin Hour Destiny 100 MG ate [facility] Extended Practice Release ) Oral Tablet Metoprolol Succinate Digoxin Digoxi Tablet Orally 125 MCG Orally complet 1 tablet eCW1 0.125 MG n Once a day ed (Krystina t Oral Tablet [facility]) atorvastati Atorva Tablet Orally 40 MG Orally complet 1 tablet eCW1 n 40 MG statin Once a day ed (Asa nt Oral Tablet Calciu [facility] Atorvastati [facility] n Calcium [facility]) 24 HR metopr 1 complet Saint metoprolol [...] MG ) Unknown complet eCW1 Medications ed ([facility]) Digoxin Digoxi active 1 tablet eCW1 0.125 MG n 125 (Saint Oral Tablet [facility] Destiny Digoxin 125 Medical [facility] Practice ) Hydralazine HydrAL 2.0 active HydrALAZI NE eCW1 Hydrochlori AZINE {tabl HCl 50 MG ( Saint de 50 MG HCl 50 ets} Destiny [...] tablet oral daily digoxin 125 1 complet [facility] ed Destiny TabletDirec Medical tions: 1 Center [...] 24 hr 24 HR isosor 1 complet [facility] Isosorbide bide ed [facility] Mononitrate mononi Medica l 30 MG trate Center Extended 30 mg Release Tablet Oral Tablet Extend isosorbide ed mononitrate Releas 30 mg e 24 Tablet hrDire Extended ctions Release 24 : 1 hrDirection tablet s: 1 tablet oral oral daily daily Unknown complet eCW1 Medications ed ([facility]) 24 HR Isosor 1.0 active Isosorbide eCW1 Isosorbide bide {tabl Mononitrate ( [facility] Mononitrate Mononi et_in ER 30 MG J osephs 30 MG trate _the_ Medical Extended ER 30 morni Practice Release MG ng} ) Oral Tablet Isosorbide Mononitrate ER 30 MG Albuterol UNK active 2 puffs as eC W1 Sulfate 108 needed ([facility] (90 Base) [facility] Medical [facility]) atorvastati Atorva 1.0 active Atorvasta tin eCW1 n 40 MG statin {tabl Calcium 40 (Sa int Oral Tablet Calciu et} MG [facility] Atorvastati m 40 Medical n Calcium MG Practice 40 MG ) Spironolact Spiron 1.0 active Spironola director medical eCW1 one 25 MG olacto {tabl ne 25 MG (Sa int Oral Tablet ne 25 et} [facility]) Digoxin Digoxi 1.0 active Digoxin 125 e CW1 0.125 MG n 125 {tabl MCG ([facility] Oral Tablet MCG et} [facility] Digoxin 125 Medical [facility]) Folic Acid Folic suspend 1 tablet e CW1 1 MG Oral Acid 1 ed ([facility] Tablet MG [facility]) 24 HR NIFEdi 1.0 active NIFEdipine eCW1 Nifedipine pine {tabl ER 30 MG (Asa nt 30 MG ER 30 et_on [place] Extended MG _an_e Medical Release mpty_ Practice Oral Tablet stoma ) NIFEdipine ch} ER 30 MG Digoxin Digoxi active 1 tablet eCW1 0.125 MG n 125 ([facility] Oral Tablet MCG [facility] Digoxin 125 [facility]) 120 ACTUAT Symbic 2.0 active Symbicort eCW1 [...] capsule eC W1 Succinate (Saint 100 MG [facility] Practice ) Cefuroxime cefURO 1 complet Krystina t 500 MG Oral Nazia ed Destiny Tablet axetil Medical cefUROXime 500 mg [place] axetil 500 Tablet mg Tablet, , Ordered [...] capsule eC W1 Succinate (Saint 100 MG [facility] Practice ) Spironolact Spiron active 1 tablet eCW1 one [...] Tablet mg Tablet, , Ordered By: Carmel Tyler d By: Denzel Edwards MDDirection hi s: 1 tablet Ekechu oral twice kwu, a day MDDire ctions : 1 tablet oral twice a day atorvastati atorva 1 complet Asa nt n 40 MG statin ed Destiny Oral Tablet 40 mg Medical atorvastati Tablet Center n 40 mg , Tablet, Ordere Ordered By: d By: kerrie [facility] Grace az MDDirection Ekechu s: 1 tablet kwu, oral daily MDDire at bedtime ctions : 1 tablet oral daily at bedtim e Folic Acid foLIC 1 complet Saint 1 MG Oral Acid 1 ed Destiny Tablet mg Medical foLIC Acid Tablet Center 1 mg , Tablet, Ordere Ordered By: d By: Nayeli joanie Grace az MDDirection Ekechu s: 1 tablet kwu, oral daily MDDire ctions : 1 tablet oral daily Hydralazine hydrAL 1 complet Asa nt Hydrochlori AZINE ed Destiny de 50 MG 50 mg Medical Oral Tablet Tablet Center hydrALAZINE , 50 mg Ordere Tablet, d By: Ordered By: [facility] Nayeli az Grace Ekechmichelle MDDirection kwu, s: 1 tablet MDDire oral every ctions eight hours : 1 tablet oral every eight hours atorvastati atorva 1 complet Asa nt n 40 MG statin ed Destiny Oral Tablet 40 mg Medical atorvastati Tablet Center n 40 mg , Tablet, Ordere Ordered By: d By: Moe Ambroseo-A brando, MDDirection MDDire s: 1 tablet ctions oral [...] d By: hr, Ordered Moe By: Moe Ambroseo-Cosme Ambroseo-Eamon stefanie, , MDDire MDDirection ctions s: 1 tablet [...] mg Tablet Tablet, , Ordered By: Carmel Rosa d By: Arnol Valenciao-A MDDirection sante, s: 1 tablet MDDire oral daily ctions : 1 tablet oral daily 24 HR metopr 1 complet Saint metoprolol olol ed Destiny succinate succin Medical 100 MG ate Center Extended 100 mg Release Tablet Oral Tablet Extend metoprolol ed succinate Releas 100 mg e 24 Tablet hr, Extended Ordere Release 24 d By: hr, Ordered Moe By: Moe Ambroseo-Cosme Safo-Eamon sante, , MDDire MDDirection ctions s: 1 tablet : 1 oral twice tablet a day oral twice a day Prednisone predni 1 complet Krystina t 10 MG Oral SONE ed Destiny Tablet 10 mg Medical predniSONE Tablet Center 10 mg , Tablet, Ordere Ordered By: d By: Nayeli Edwards, az MDDirection Ekechu s: 1 tablet kwu, oral [...] Ordere Tablet, d By: Ordered By: Moe Carrera-Cosme Ambroseo-Eamon sante, , MDDire MDDirection ctions s: 2 tablet : 2 oral every tablet eight hours oral every eight hours Albuterol UNK 2.0 active Albuterol eCW 1 Sulfate 108 {puff Sulfate 108 (Saint (90 Base) s_as_ (90 Base) Roni phs MCG/ACT neede MCG/ACT Medical d} Practice PC) apixaban 5 apixab 1 complet Eliquis S aint MG Oral an ed Destiny Tablet (Eliqu Medical [Eliquis] is) 5 Center apixaban mg (Eliquis) 5 Tablet mg Tablet, , Ordered By: Carmel Rosa d By: Ankit Valenciairection sante, s: 1 tablet MDDire oral twice [...] (Krystina t 30 MG ER 30 stomach Dsetiny Extended MG Medical Release Practice Oral Tablet PC) NIFEdipine ER 30 MG Acetaminoph acetam 1 complet Asa nt en 500 MG inophe ed Destiny Oral Tablet n 500 Medical acetaminoph mg Center en 500 mg Tablet Tablet, , Ordered By: Carmel pantoja By: Dalila Farias PADirection Green, s: 1 tablet PADire oral every [...] r, Inhaler, Ordere Ordered By: d By: brando Garcia, MDDirection MDDire s: 2 puff ctions by [...] By: hr, Ordered Ebere By: hi Eberechi Ekherlinda Edwards, kathyu, MDDirection MDDire s: 1 tablet ctions oral daily : 1 tablet oral daily hydrALAZINE 1 complet Saint 100 mg ed Destiny TabletDirec Medical tions: 1 Center tablet oral every eight hours Insurance Providers Payer name Policy type Policy ID Covered Covered democrat's Policy P angel / Coverage democrat ID relationship to Rodriguez Inf ormation type rodriguez MEDICARE [id number] SP [id number] J66 MEDICARE [id number] SP [id number] J66 [facility] [id number] SP [id number] PLANS HIP MEDICARE [id number] SP [id number] VIP M [id number] 01 [id number] J66 VALUE [id number] SP [id number] OPTIONS-MEDICAR E M [id number] 01 [id number] [id number] M [id number] 01 [id number] J66 M [id number] 01 [id number] 401 HIP O [id number] 01 [id number] 401 M [id number] 01 [id number] J66 O [id number] 01 [id number] 401 HIP O [id number] 01 [id number] 401 HIP MCARE O [id number] 01 [id number] 401 [facility] O [id number] 01 [id number] MCARE HIP O [id number] 01 [id number] 401 W [id number] W [id number] 01 [id number] [facility]MBLE [facility] O [id number] 01 [id number] [facility] [id number] 01 [id number] MEDICARE [place] [id number] 01 [id number] A [facility] O [id number] 01 [id number] MCARE Problems, Conditions, and Diagnoses Code Display Name Description Problem Type Effective Data Dates Source(s) F10.10 [id number] Alcohol abuse Problem 11/25/2019 eCW1 ([facility] 12:00:00 AM [facility] EST Medical Practice ) F10.10 [id number] Alcohol abuse Problem 11/25/2019 eCW1 ([facility] 12:00:00 AM [facility] Medical Practice ) J45.20 [id number] Mild intermittent Problem 01/21/2019 eCW1 (S aint asthma without 12:00:00 AM Destiny complication EDT Medical Practice ) D72.829 [id number] Leukocytosis, Problem 01/21/2019 eCW1 ([facility] unspecified type 12:00:00 AM [place] EDT Medical Practice ) J45.20 [id number] Mild intermittent Problem 01/21/2019 eCW1 (S aint asthma without 12:00:00 AM [place] complication EDT Medical Practice ) D72.829 715735129 Leukocytosis, Problem 01/21/2019 eCW1 ([facility] unspecified type 12:00:00 AM [place] EDT Medical Practice ) D72.829 Leukocytosis, Leukocytosis, Problem 01/21/2019 eCW1 (Sa int unspecified type unspecified type 12:00:00 AM J osephs EDT Medical Practice ) J45.20 Mild intermittent Mild intermittent Problem 01/21/2019 eCW1 ([facility] asthma without asthma without 12:00:00 AM Adi hs complication complication EDT Medical Practice ) I25.10 [id number] Coronary artery Problem 01/14/2019 eCW1 (Asa nt disease without 12:00:00 AM Destiny angina pectoris, EDT Medical unspecified vessel Practi [facility]) or lesion type, unspecified whether [place] or transplanted heart F10.10 88709112 ETOH abuse Problem 01/14/2019 eCW1 ([facility] 12:00:00 AM [place] EDT Medical Practice ) J44.9 00563595 Chronic Problem 01/14/2019 eCW1 ([facility] obstructive 12:00:00 AM [place] pulmonary disease, EDT Medica l unspecified COPD Practice ) type I25.10 [id number] Coronary artery Problem 01/14/2019 eCW1 ( [facility] disease involving 12:00:00 AM Victor Hugo s [place] coronary EDT Medical artery of [place] Practice PC) heart without angina pectoris N40.1 [id number] Benign prostatic Problem 01/14/2019 eCW1 (Sa int hyperplasia with 12:00:00 AM [place]iny lower urinary EDT Medical tract symptoms Practice P C) N39.41 42613812 Urge incontinence Problem 01/14/2019 eCW1 (S aint 12:00:00 AM [place]iny EDT Medical Practice PC) J44.9 55276214 Chronic Problem 01/14/2019 eCW1 ([facility] obstructive 12:00:00 AM [place] pulmonary disease, EDT Medica l unspecified COPD Practice PC) type I25.10 [id number] Coronary artery Problem 01/14/2019 eCW1 ( [facility] disease involving 12:00:00 AM Victor Hugo s [place] coronary EDT Medical artery of [place] Practice PC) heart without angina pectoris N40.1 [id number] Benign prostatic Problem 01/14/2019 eCW1 (Sa int hyperplasia with 12:00:00 AM [place] lower urinary EDT Medical tract symptoms Practice P C) N39.41 57084197 Urge incontinence Problem 01/14/2019 eCW1 (S aint 12:00:00 AM Dsetiny EDT Medical Practice PC) I25.10 Coronary artery Coronary artery Problem 01/14/2019 eCW1 ([facility] disease without disease without 12:00:00 AM Mario ephs angina pectoris, angina pectoris, EDT Me dical unspecified vessel unspecified vessel Practice PC) or lesion type, or lesion type, unspecified whether unspecified [place] or whether [place] or transplanted heart transplanted heart F10.10 ETOH [...] disease involving disease involving 12:00:00 AM [place] coronary [place] coronary EDT Medi amaya artery of [place] artery of [place] Pr actice ) heart without heart without angina pectoris angina pectoris N39.41 Urge incontinence Urge incontinence Problem 01/14/2019 eCW1 ([facility] 12:00:00 AM [place] EDT Medical Practice PC) I42.9 38359119 Cardiomyopathy, Problem 12/30/2018 eCW1 (Asa nt unspecified type 12:00:00 AM [place] EDT Medical Practice ) E78.5 65035335 Hyperlipidemia, Problem 12/30/2018 eCW1 (Asa nt unspecified 12:00:00 AM [facility] hyperlipidemia EDT Medical type Practice ) I42.9 41800642 Cardiomyopathy, Problem 12/30/2018 eCW1 (Asa nt unspecified type 12:00:00 AM [place] EDT Medical Practice ) E78.5 80472446 Hyperlipidemia, Problem 12/30/2018 eCW1 (Asa nt unspecified 12:00:00 AM [facility] hyperlipidemia EDT Medical type Practice ) E78.5 Hyperlipidemia, Hyperlipidemia, Problem 12/30/2018 eCW1 ([facility] unspecified unspecified 12:00:00 AM [facility] hyperlipidemia type hyperlipidemia EDT edical type Practice ) I42.9 Cardiomyopathy, Cardiomyopathy, Problem 12/30/2018 eCW1 ([facility] unspecified type unspecified type 12:00:00 AM J osephs EDT Medical Practice ) I48.0 Atrial fibrillation PAF (paroxysmal Problem 11/12/2018 eCW1 ([facility] atrial 12:00:00 AM [place] fibrillation) EST Medical Practice ) I10 [id number] Essential Problem 11/12/2018 eCW1 ([facility] hypertension 12:00:00 AM [facility] Medical Practice ) E78.2 888655035 Mixed Problem 11/12/2018 eCW1 ([facility] hyperlipidemia 12:00:00 AM [facility] Medical Practice ) G45.9 496024463 TIA (transient Problem 11/12/2018 eCW1 (Krystina t ischemic attack) 12:00:00 AM [facility] Medical Practice ) I42.0 102194940 Dilated Problem 11/12/2018 eCW1 ([facility] cardiomyopathy 12:00:00 AM [facility] Medical Practice ) I48.0 Atrial fibrillation PAF (paroxysmal Problem 11/12/2018 eCW1 ([facility] atrial 12:00:00 AM [place]iny fibrillation) [facility] Medical Practice PC) I10 16712952 Essential Problem 11/12/2018 eCW1 ([facility] hypertension 12:00:00 AM [facility] Medical Practice PC) E78.2 974840935 Mixed Problem 11/12/2018 eCW1 ([facility] hyperlipidemia 12:00:00 AM [facility] Medical Practice PC) G45.9 979503145 TIA (transient Problem 11/12/2018 eCW1 (Krystina t ischemic attack) 12:00:00 AM [facility] Medical Practice PC) I42.0 871581170 Dilated Problem 11/12/2018 eCW1 ([facility] cardiomyopathy 12:00:00 AM [facility] Medical Practice PC) I48.0 PAF (paroxysmal PAF (paroxysmal Problem 11/12/2018 eCW1 ([facility] atrial atrial 12:00:00 AM Destiny fibrillation) fibrillation) [facility] Medical Practice PC) G45.9 TIA (transient TIA (transient Problem 11/12/2018 eCW1 ( [facility] ischemic attack) ischemic attack) 12:00:00 AM J osephs [facility] Medical Practice PC) I10 Essential Essential Problem 11/12/2018 eCW1 ([facility] hypertension hypertension 12:00:00 AM [facility] Medical Practice PC) I42.0 Dilated Dilated Problem 11/12/2018 eCW1 ([facility] cardiomyopathy cardiomyopathy 12:00:00 AM [facility] Medical Practice PC) E78.2 Mixed Mixed Problem 11/12/2018 eCW1 ([facility] hyperlipidemia [facility]lipidemia [facility] I48.2 626410195 Chronic atrial Problem 11/05/2018 eCW1 (Krystina t fibrillation 12:00:00 AM [facility] Medical Practice ) I48.2 250582545 Chronic atrial Problem 11/05/2018 eCW1 (Krystina t fibrillation 12:00:00 AM [facility] Medical Practice ) I48.2 Chronic atrial Chronic atrial Problem 11/05/2018 eCW1 ( [facility] fibrillation fibrillation 12:00:00 AM [facility] Medical Practice ) K75.9 [id number] Hepatitis Problem 10/26/2018 eCW1 ([facility] 12:00:00 AM [facility] Medical Practice ) K75.9 990762463 Hepatitis Problem 10/26/2018 eCW1 ([facility] 12:00:00 AM [facility] Practice PC) K75.9 Hepatitis Hepatitis Problem 10/26/2018 eCW1 ([facility] 12:00:00 AM [facility] Practice PC) 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 eCW1 ( [facility] disease, [facility] unspecified Medical Practice PC) I42.0 Dilated Dilated Problem eCW1 ([facility] cardiomyopathy cardiomyopathy [facility] Medical Practice ) E78.2 Mixed Mixed Problem eCW1 ([facility] hyperlipidemia hyperlipidemia [facility] Medical Practice PC) G45.9 Transient cerebral TIA (transient Diagnosis eC W1 ([facility] ischemic attack, ischemic attack) Radha sephs unspecified Medical Practice PC) I50.9 Heart failure, Congestive heart Diagnosis eCW1 ([facility] unspecified failure, [facility] unspecified HF Medical chronicity, Practice PC) unspecified heart failure type I10 Essential (primary) Essential Diagnosis eCW1 ([facility] hypertension hypertension [facility] Medical Practice ) N39.41 Urge incontinence Urge incontinence Problem eCW1 ([facility]) N40.1 Benign prostatic Benign prostatic Problem eC W1 ([facility] hyperplasia with hyperplasia with Radha sephs lower urinary tract lower urinary Me dical symptoms tract symptoms Practice P C) I42.9 Cardiomyopathy, Cardiomyopathy, Problem eCW1 ([facility] unspecified unspecified type [facility] Practice PC) E78.5 Hyperlipidemia, Hyperlipidemia, Problem eCW1 ([facility] unspecified unspecified [facility] hyperlipidemia Medical type Practice PC) J18.9 Pneumonia, Pneumonia due to Diagnosis eCW1 ( int unspecified infectious [facility] organism organism, Medical unspecified Practice PC) laterality, unspecified part of lung J44.1 Chronic obstructive COPD exacerbation Diagnosis eCW1 ([facility] pulmonary disease [facility] with (acute) Medical exacerbation Practice PC) J44.9 Chronic obstructive Chronic Problem eCW1 ([facility] pulmonary disease, obstructive Adi hs unspecified pulmonary disease, Medic al unspecified COPD Practice PC) type F10.10 Alcohol abuse, ETOH abuse Problem eCW1 (Krystina t uncomplicated [facility] Medical Practice ) I48.0 Paroxysmal atrial PAF (paroxysmal Problem eC W1 ([facility] fibrillation atrial [facility] fibrillation) Medical Practice PC) I25.10 Atherosclerotic Coronary artery Problem eCW1 ([facility] heart disease of disease involving J osephs [place] coronary [place] coronary Medi amaya artery without artery of [place] [facility] PC) angina pectoris heart without angina pectoris I48.2 Chronic atrial Chronic atrial Problem eCW1 ( [facility] fibrillation fibrillation [facility] Medical [facility]) 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 eCW1 ( [facility] disease, [facility] unspecified Medical Practice ) I42.0 Dilated Dilated Problem eCW1 ([facility] cardiomyopathy cardiomyopathy [facility]) G45.9 Transient cerebral TIA (transient Problem eC W1 ([facility] ischemic attack, ischemic attack) Radha sephs unspecified Medical Practice PC) E78.2 Mixed Mixed Problem eCW1 ([facility] hyperlipidemia hyperlipidemia [facility] Medical Practice ) I10 Essential (primary) Essential Diagnosis eCW1 ([facility] hypertension hypertension [facility] Medical [facility]) N40.1 Benign prostatic Benign prostatic Problem eC W1 ([facility] hyperplasia with hyperplasia with Radha sephs lower urinary tract lower urinary Me dical symptoms tract symptoms Practice P C) I42.9 Cardiomyopathy, Cardiomyopathy, Problem eCW1 ([facility] unspecified unspecified type [facility] Medical [facility]) E78.5 Hyperlipidemia, Hyperlipidemia, Problem eCW1 ([facility] unspecified unspecified [facility] hyperlipidemia Medical type Practice PC) N39.41 Urge incontinence Urge incontinence Diagnosis eCW1 ([facility]) J44.9 Chronic obstructive Chronic Problem eCW1 ([facility] pulmonary disease, obstructive Adi hs unspecified pulmonary disease, Medic al unspecified COPD Practice PC) type F10.10 Alcohol abuse, ETOH abuse Problem eCW1 (Krystina t uncomplicated [facility]) I48.0 Paroxysmal atrial PAF (paroxysmal Problem eC W1 ([facility] fibrillation atrial [facility] fibrillation) Medical Practice ) I25.10 Atherosclerotic Coronary artery Problem eCW1 ([facility] heart disease of disease involving J osephs [place] coronary [place] coronary Medi amaya artery without artery of [place] Prac [facility] PC) angina pectoris heart without angina pectoris I48.2 Chronic atrial Chronic atrial Problem eCW1 ( [facility] fibrillation fibrillation [facility]) F17.200 Nicotine NICOTINE Diagnosis 05/25/2020 [facility] dependence, DEPENDENCE, 12:00:00 PM Medical unspecified, UNSPECIFIED, EDT Center uncomplicated UNCOMPLICATED F10.10 Alcohol abuse, ALCOHOL ABUSE, Diagnosis 05/25/2020 [facility] uncomplicated UNCOMPLICATED 12:00:00 PM Medical EDT Center Z53.20 Procedure and PROC/TRTMT NOT CRD Diagnosis 05/01/2020 Asa nt [facility] treatment not OUT BEC PT 09:21:00 PM [...] 04:28:00 PM Medical unspecified UNSPECIFIED EDT Center R40.2410 [place] coma scale JEZ COMA SCALE Diagnosis 0 [facility] score 13-15, SCORE 13-15, 04:23:00 PM Medical unspecified time UNSPECIFIED TIME EDT Ce nter Z04.89 ENCOUNTER FOR ENCOUNTER FOR Diagnosis 02/08/2020 [facility] Garcia sephs EXAMINATION AND EXAMINATION AND 05:07:00 PM Med ical OBSERVATION FOR OTH OBSERVATION FOR EDT Center REASONS OTH REASONS M62.81 Muscle weakness MUSCLE WEAKNESS Diagnosis 02/06/2020 Krystina t Destiny (generalized) (GENERALIZED) 06:33:00 PM Medical EDT Center E87.6 Hypokalemia HYPOKALEMIA Diagnosis 01/29/2020 [facility] Gay s 01:19:00 PM Medical EDT Center R26.2 Difficulty in DIFFICULTY IN Diagnosis 01/29/2020 [facility] Garcia sephs walking, not WALKING, NOT 01:19:00 PM Medical elsewhere ELSEWHERE EDT Center classified CLASSIFIED H61.21 Impacted cerumen, IMPACTED CERUMEN, Diagnosis 01/22/2020 [facility] Gays right ear RIGHT EAR 10:03:00 PM Medical EDT Center H91.90 Unspecified hearing UNSPECIFIED Diagnosis 01/22/2020 Krystina Gays loss, unspecified HEARING LOSS, 10:03:00 PM Med ical ear UNSPECIFIED EAR EDT Center Z72.0 Tobacco use TOBACCO USE Diagnosis 01/03/2020 [facility] Gay s 06:01:00 AM Medical EDT Center Y90.8 [...] Alcohol dependence ALCOHOL DEPENDENCE Diagnosis 0 [facility] with intoxication, WITH INTOXICATION, 12:09:00 PM Medical [...] AM Medical UNSPECIFIED UNSPECIFIED EST Center Z79.01 technician terminal and repeater (current) LONG-TERM Diagnosis 11/01/2019 [facility] use of (CURRENT) [...] ical carried out due to SEEN BY [facility] EST Center patient leaving [place] prior to [...] FAILURE J44.0 Chronic obstructive CHRONIC Diagnosis 01/12/2019 [facility] Destiny pulmonary disease OBSTRUCTIVE PULMON 03:41:00 P M Medical with acute lower DISEASE W ACUTE EDT Melanie ter respiratory LOWER RESP INFCT infection J44.1 Chronic obstructive CHRONIC Diagnosis 01/12/2019 [facility] pulmonary disease OBSTRUCTIVE 03:41:00 PM Medic al with (acute) PULMONARY DISEASE EDT Cente r exacerbation W (ACUTE) EXACERBATION J18.9 Pneumonia, PNEUMONIA, Diagnosis 01/12/2019 [facility] unspecified UNSPECIFIED 03:41:00 PM Medical organism ORGANISM EDT Center F10.239 Alcohol dependence ALCOHOL DEPENDENCE Diagnosis 9 [facility] Destiny with withdrawal, WITH WITHDRAWAL, 03:41:00 PM M edical unspecified UNSPECIFIED EDT Center A41.9 Sepsis, unspecified SEPSIS, Diagnosis 01/07/2019 [facility] organism UNSPECIFIED 04:14:00 AM Medical ORGANISM EDT Center E83.42 Hypomagnesemia HYPOMAGNESEMIA Diagnosis 12/20/2018 [facility] 02:03:00 PM Medical EDT Center Surgeries/Procedures Procedure Description Date Indications Data Source(s) ECG ROUTINE ECG 11/25/2019 eCW1 ([facility] W/[place] [address] LDS W/I&R 12:00:00 AM [facility] EST Practice ) COLLECTION VENOUS 01/21/2019 eCW1 (Krystina t BLOOD VENIPUNCTURE 12:00:00 AM [facility] EDT Practice ) HANDLG&/OR CONVEY OF 01/21/2019 eCW1 (S aint SPEC FOR TR OFFICE TO 12:00:00 AM [facility] Medical LAB EDT Practice ) ECG ROUTINE ECG 01/14/2019 eCW1 ([facility] W/[facility] 12 LDS W/I&R 12:00:00 AM [facility] EDT Practice ) OFFICE OUTPATIENT 01/14/2019 eCW1 (Krystina t VISIT 25 MINUTES 12:00:00 AM [facility] ical EDT Practice ) HANDLG&/OR CONVEY OF 01/14/2019 eCW1 (S aint SPEC FOR TR OFFICE TO 12:00:00 AM [facility] Medical LAB EDT Practice ) OFFICE OUTPATIENT 01/14/2019 eCW1 (Krystina t VISIT 40 MINUTES 12:00:00 AM [facility] COLLECTION VENOUS 01/14/2019 eCW1 (Krystina t BLOOD VENIPUNCTURE 12:00:00 AM Destiny Delcid ical [facility]) No Known procedures No Known procedures e CW1 ([facility]) No Known procedures No Known procedures e CW1 ([facility]) Results ID Date Data Source Urinalysis.[id number] 05/01/2020 04:55:00 AM EDT [facility] 0 Name Value Range Interpretation Description Data [...] by Test d">Urine Medical strip Specific Center [place] </content>1.02 5 <content styleCode="Jody lics"> (1.015-1.025 )</content> [...] HPF)</content> Leukocyte NEGATIVE <content [facility] esterase styleCode="Kirstin Destiny [...] Data Source Liver 04/30/2020 08:15:00 PM EDT [facility] Profile.[id number] Name Value Range Interpretation Description Data Sup [...] s"> (3.5-5.0 G/DL)</content> ID Date Data Source HematologyRou.[id number] 04/30/2020 08:15:00 PM EDT [facility] 0400 Name Value Range Interpretation Description Data [...] (< 1 %)</content> ID Date Data Source GFR(Creatinine).[id number] 04/30/2020 08:15:00 PM EDT [facility] 0-0400 Name Value Range Interpretation Code Description Data Loyda rce(s) Supporting Document(s ) UNK > 60 <content [facility] styleCode="Bold"> Medical Cent er EGFR </content>77 GFR<content styleCode="Italic s"> (> 60 GFR)</content> ID Date Data Source CHMROUTINECCDA.[id number] 04/30/2020 08:15:00 PM EDT [facility] -0400 Name Value Range Interpretation Description Data Sup porting Code Source(s) Document(s ) UNK >= 1.0 <content [facility] styleCode="Bold Medical ">AG Ratio Center </content>1.1 <content styleCode="Ital ics"> (>= 1.0 )</content> Protein 6.3-8.2 Below low normal <content [facility] [Mass/volum styleCode="Bold Medical e] in Serum ">Total Protein Center or Plasma </content>5.8 G/DL L<content styleCode="Ital ics"> (6.3-8.2 G/DL)</content> Lactate 0.7-2.0 <content [place] [Mass/volum styleCode="Bold Medical e] in Serum ">Lactic Acid Center or Plasma </content>1.6 MMOLL<content styleCode="Ital ics"> (0.7-2.0 MMOLL)</content > UNK 2.3-3.5 <content [facility] styleCode="Bold Medical ">Globulin Center </content>2.7 G/DL<content styleCode="Ital ics"> (2.3-3.5 G/DL)</content> ID Date Data Source [facility].[id number] 04/30/2020 08:15:00 PM EDT [facility] Name Value Range Interpretation Description [...] s"> (38-126 IU/L)</content> ID Date Data Source [id number] 03/31/2020 01:40:00 PM EDT [facility] Name Value Range Interpretation Description Data Sup porting Code Source(s) Document(s ) SARS [facility] coronavirus 2 RNA This lab was ordered by [facility] and reported by [facility]. ID Date Data Source [id number] 03/23/2020 05:05:00 AM EDT [facility] Name Value Range Interpretation Description Data Sup porting Code Source(s) Document(s ) SARS [facility] CORONAVIRUS 2 RNA This lab was ordered by [facility] and reported by [facility]. ID Date Data Source HematologyRou.[id number] 03/09/2020 05:25:00 PM EDT [facility] 0400 Name Value Range Interpretation Description Data [...] (8.0-11.0 FL)</content> UNK 1.6-7.3 <content [facility] styleCode="Bold Destniy ">Neutrophil Medical Count Center </content>5.55 KCUMM<content styleCode="Ital [...] (< 1 %)</content> ID Date Data Source GFR(Creatinine).[id number] 03/09/2020 05:22:00 PM EDT [facility] 0-0400 Name Value Range Interpretation Code Description Data Loyda rce(s) Supporting Document(s ) UNK > 60 <content [facility] styleCode="Bold"> Medical Cent er EGFR </content>78 GFR<content styleCode="Italic s"> (> 60 GFR)</content> ID Date Data Source [id number] 03/09/2020 05:22:00 PM EDT [facility] Name Value Range Interpretation Description [...] MEQ/L)</conten t> Potassium 3.5-5.3 <content [facility] [Moles/volume] styleCode="Kirtsin Destiny in Serum or d">Potassium Medical Plasma [...] (74-106 MG/DL)</conten t> ID Date Data Source [id number] 02/17/2020 04:50:00 PM EDT [facility] Name Value Range Interpretation Description Data Sup porting Code Source(s) Document(s ) SARS [facility] CORONAVIRUS 2 RNA This lab was ordered by [facility] and reported by [facility]. ID Date Data Source LIPID.[id number] 02/01/2020 02:33:00 PM EDT [facility] Name Value Range Interpretation Description Data Sup porting Code Source(s) Document(s ) Triglyceride < 150 Above high normal <content [facility] [Mass/volume] in styleCode="[facility] Serum or Plasma d">Triglycerid [facility] es Center </content>156 MG/DL H<content styleCode="Jody lics"> (< 150 MG/DL)</conten t> Cholesterol -<200 <content [facility] [Mass/volume] in styleCode="[facility] Serum or Plasma d">Cholesterol Medical </content>128 Center MG/DL<content styleCode="Jody lics"> (-<200 MG/DL)</conten t> UNK < 100 <content Saint styleCode="Kirstin Destiny d">LDL-Cholest [facility] rachel Center </content>35 MG/DL<content styleCode="Jody lics"> (< 100 MG/DL)</conten t> UNK > 60 <content Saint styleCode="Kirstin Destiny d">HDL- Medical Cholesterol Center </content>62 MG/DL<content styleCode="Jody lics"> (> 60 MG/DL)</conten t> ID Date Data Source HematologyRou.[id number] 02/01/2020 02:33:00 PM EDT [facility] 0400 Name Value Range Interpretation Description Data Sup porting Code Source(s) Document(s ) Leukocytes 4.4-11.0 <content Saint [#/volume] in styleCode="[facility] Blood by ">White Blood Medical Automated count [...] ics"> (NORMAL )</content> ID Date Data Source GFR(Creatinine).[id number] 02/01/2020 02:33:00 PM EDT [facility] 0-0400 Name Value Range Interpretation Code Description Data Loyda rce(s) Supporting Document(s ) UNK > 60 <content [facility] styleCode="Bold"> Medical Cent er EGFR </content>96 GFR<content styleCode="Italic s"> (> 60 GFR)</content> ID Date Data Source Coagulation 02/01/2020 02:33:00 PM [facility] Rout.[id number] EDT Name Value Range Interpretation Description Data [...] cs"> (25.1-36.5 SEC)</content> ID Date Data Source CardiacMarkers.[id number] 02/01/2020 02:33:00 PM [facility] Name Value Range Interpretation Description Data Sup porting Code Source(s) Document(s ) Troponin < 0.034 <content Saint I.cardiac styleCode="Bold [place] [Mass/volume ">Troponin I Medical ] in Serum </content>< Center or Plasma 0.012 NG/ML<content styleCode="Ital ics"> (< 0.034 NG/ML)</content > ID Date Data Source BMP.[id number] 02/01/2020 02:33:00 PM EDT [facility] Name Value Range Interpretation Description Data Sup porting Code Source(s) Document(s ) Sodium 137-145 <content Saint [Moles/volume] styleCode="Kirstin [place] in Serum or d">Sodium Medical Plasma </content>142 Center MEQ/L<content styleCode="Jody lics"> (137-145 MEQ/L)</conten t> Chloride 98-107 <content Saint [Moles/volume] styleCode="Kirstin [place] in Serum or d">Chloride Medical Plasma </content>106 [...] 9-20 Below low normal <content Saint styleCode="Kirstin [place] d">BUN Medical </content>8 Center MG/DL L<content styleCode="Jody lics"> (9-20 MG/DL)</conten t> Calcium 8.4-10.2 <content Saint [Mass/volume] styleCode="Kirstin [place] [...] (> 60 GFR)</content> ID Date Data Source BMP.[id number] 01/29/2020 07:37:00 PM EDT [facility] Name Value Range Interpretation Description Data Sup porting Code Source(s) Document(s ) Potassium 3.5-5.3 <content Saint [Moles/volume styleCode="Kirstin [place] ] in Serum or d">Potassium Medical Plasma </content>4.4 Center MEQ/L<content styleCode="Jody lics"> (3.5-5.3 MEQ/L)</conten t> ID Date Data Source BMP.[id number] 01/29/2020 07:12:00 PM EDT [facility] Name Value Range Interpretation Description Data Sup porting Code Source(s) Document(s ) Potassium <content [facility] [Moles/volume styleCode="Bold Medical ] in Serum or ">Potassium Center Plasma </content>Test not performed. MEQ/L (Reference Range: not available)
ID Date Data Source BMP.[id number] 01/29/2020 03:52:00 PM EDT [facility] Name Value Range Interpretation Description Data Sup porting Code Source(s) Document(s ) Potassium 3.5-5.3 Below lower panic <content Saint [Moles/volume limits styleCode="Kirstin [place] ] in Serum or d">Potassium Medical Plasma </content><con Center tent styleCode="Kirstin d">2.7 MEQ/L LL</content><c ontent styleCode="Jody lics"> (3.5-5.3 MEQ/L)</conten t> ID Date Data Source Liver 01/29/2020 02:20:00 PM EDT [facility] Profile.[id number] Name Value Range Interpretation Description Data Sup [...] s"> (0.0-0.3 MG/DL)</content> ID Date Data Source HematologyRou.[id number] 01/29/2020 02:20:00 PM EDT [facility] 0400 Name Value Range Interpretation Description Data Sup porting Code Source(s) Document(s ) Hemoglobin 13.5-17. Below low normal <content Saint [Mass/volume] in 5 styleCode="Bold [facility] Blood ">Hemoglobin Medical </content>13.4 Center G/DL L<content [...] (< 1 %)</content> ID Date Data Source GFR(Creatinine).[id number] 01/29/2020 02:20:00 PM EDT [facility] 0-0400 Name Value Range Interpretation Code Description Data Loyda rce(s) Supporting Document(s ) UNK > 60 <content [facility] styleCode="Bold"> Medical Cent er EGFR </content>71 GFR<content styleCode="Italic s"> (> 60 GFR)</content> ID Date Data Source CHMROUTINECCDA.[id number] 01/29/2020 02:20:00 PM EDT [facility] -0400 Name Value Range Interpretation Description Data Sup porting Code Source(s) Document(s ) Magnesium 1.6-2.3 <content Saint [Mass/volume] styleCode="Kirstin Dest[place] in Serum or d">Magnesium Medical Plasma </content>1.7 Center MG/DL<content styleCode="Jody lics"> (1.6-2.3 MG/DL)</conten t> ID Date Data Source [facility].[id number] 01/29/2020 02:20:00 PM EDT [facility] Name Value Range Interpretation Description Data Sup porting Code Source(s) Document(s ) Sodium 137-145 <content Saint [Moles/volume] in styleCode="Bold"> [facility] Serum or Plasma Sodium Medical </content>137 Center MEQ/L<content styleCode="Italic s"> (137-145 MEQ/L)</content> Potassium <content Saint [Moles/volume] in styleCode="Bold"> [facility] Serum or Plasma Potassium Medical </content>Test Center [...] s"> (3.5-5.0 G/DL)</content> ID Date Data Source [id number] 01/26/2020 08:43:00 PM EDT [facility] Name Value Range Interpretation Description Data Sup porting Code Source(s) Document(s ) SARS [facility] CORONAVIRUS 2 RNA This lab was ordered by [facility] and reported by [facility]. ID Date Data Source Liver 11/30/2019 08:12:00 PM EDT [facility] Profile.[id number] Name Value Range Interpretation Description Data Sup [...] s"> (3.5-5.0 G/DL)</content> ID Date Data Source GFR(Creatinine).[id number] 11/30/2019 08:12:00 PM EDT [facility] 0-0400 Name Value Range Interpretation Code Description Data Loyda rce(s) Supporting Document(s ) UNK > 60 <content [facility] styleCode="Bold"> Medical Cent er EGFR </content>78 GFR<content styleCode="Italic s"> (> 60 GFR)</content> ID Date Data Source Coagulation 11/30/2019 08:12:00 PM [facility] Rout.[id number] EDT Name Value Range Interpretation Code Description Data Loyda rce(s) Supporting Document(s ) UNK < 500 Above upper panic <content [place] limits styleCode="Bold"> Medical Cent er D-Dimer </content><conten t styleCode="Bold"> 1607 ngFEU HH</content><cont ent styleCode="Italic s"> (< 500 ngFEU)</content> ID Date Data Source CHMROUTINECCDA.[id number] 11/30/2019 08:12:00 PM EDT [facility] -0400 Name Value Range Interpretation Description Data Sup porting Code Source(s) Document(s ) Lipase 23-300 <content [facility] [Enzymatic styleCode="Bold Medical activity/vo ">Lipase Center lume] in </content>121 Serum or IU/L<content Plasma styleCode="Ital ics"> (23-300 IU/L)</content> UNK 30-110 <content [facility] styleCode="Bold Medical ">Amylase Center </content>90 IU/L<content styleCode="Ital ics"> (30-110 IU/L)</content> ID Date Data Source [facility].[id number] 11/30/2019 08:12:00 PM EDT [facility] Name Value Range Interpretation Description Data Sup porting Code Source(s) Document(s ) Sodium 137-145 <content Saint [Moles/volume] in styleCode="Bold"> [facility] Serum or Plasma Sodium Medical </content>141 Center MEQ/L<content styleCode="Italic s"> (137-145 MEQ/L)</content> Potassium 3.5-5.3 <content Saint [Moles/volume] in styleCode="Bold"> [facility] Serum or Plasma Potassium Medical </content>3.8 Center MEQ/L<content styleCode="Italic s"> (3.5-5.3 MEQ/L)</content> Carbon dioxide, 22-30 <content Saint total styleCode="Bold"> [place] [Moles/volume] in Carbon Dioxide Medical Serum or Plasma </content>30 Center MEQ/L<content styleCode="Italic s"> (22-30 MEQ/L)</content> Chloride 98-107 <content Saint [Moles/volume] in styleCode="Bold"> [facility] Serum or Plasma Chloride Medical </content>105 Center [...] s"> (0.2-1.3 MG/DL)</content> ID Date Data Source Microbiology.[id number] 11/30/2019 07:20:00 PM EDT [facility] 400 Name Value Range Interpretation Code Description Data Loyda rce(s) Supporting Document(s ) UNK <item><content [facility] styleCode="Bold"> Medical [facility] er Culture Status </content>
<t able><tbody><tr>< td>Specimen Number:</td><td>[id number]</td></tr ><tr><td>Sample Collection Date/Time: </td><td> 0 7:20 PM</td></tr><tr>< td>Specimen Source:</td><td>B LOOD</td></tr><tr ><td>Culture Report:</td><td>N O GROWTH 5 DAYS </td></tr><tr><td >Culture Status:</td><td>F inal </td></tr><tr><td >Blood Culture:</td><td> Collection Plate Date: 11/30/2019 19:28 </td></tr></tbody ></table></item> UNK <item><content [facility] styleCode="Bold"> Medical [facility] er Culture Report </content>
<t able><tbody><tr>< td>Specimen Number:</td><td>[id number]</td></tr ><tr><td>Sample Collection Date/Time: </td><td> 0 7:20 PM</td></tr><tr>< td>Specimen Source:</td><td>B LOOD</td></tr><tr ><td>Blood Culture:</td><td> Collection Plate Date: 11/30/2019 19:28 </td></tr><tr><td >Culture Status:</td><td>F inal </td></tr><tr><td >Culture Report:</td><td>N O GROWTH 5 DAYS </td></tr></tbody ></table></item> ID Date Data Source Microbiology.[id number] 11/30/2019 07:05:00 PM EDT [facility] 400 Name Value Range Interpretation Code Description Data Loyda rce(s) Supporting Document(s ) UNK <item><content [facility] styleCode="Bold"> Medical Cent er Culture Status </content>
<t able><tbody><tr>< td>Specimen Number:</td><td>[id number]</td></tr ><tr><td>Sample Collection Date/Time: </td><td> 0 7:05 PM</td></tr><tr>< td>Specimen Source:</td><td>B LOOD</td></tr><tr ><td>Culture Report:</td><td>N O GROWTH 5 DAYS </td></tr><tr><td >Culture Status:</td><td>F inal </td></tr><tr><td >Blood Culture:</td><td> Collection Plate Date: 11/30/2019 19:20 </td></tr></tbody ></table></item> UNK <item><content [facility] styleCode="Bold"> Medical Cent er Culture Report </content>
<t able><tbody><tr>< td>Specimen Number:</td><td>[id number]</td></tr ><tr><td>Sample Collection Date/Time: </td><td> 0 7:05 PM</td></tr><tr>< td>Specimen Source:</td><td>B LOOD</td></tr><tr ><td>Blood Culture:</td><td> Collection Plate Date: 11/30/2019 19:20 </td></tr><tr><td >Culture Status:</td><td>F inal </td></tr><tr><td >Culture Report:</td><td>N O GROWTH 5 DAYS </td></tr></tbody ></table></item> ID Date Data Source Liver 11/30/2019 07:05:00 PM EDT [facility] Profile.[id number] Name Value Range Interpretation Description Data Sup [...] Range: not available)
ID Date Data Source HematologyRou.[id number] 11/30/2019 07:05:00 PM EDT [facility] nt [facility] 0400 Name Value Range Interpretation Description [...] styleCode="Ital ics"> (0 /100)</content> UNK 0.0 <content styleCode="Bold Destiny ">Nucleated Red Medical Blood Cell Center Count </content>0.00 KCUMM<content styleCode="Ital ics"> (0.0 KCUMM)</content > UNK < 1 <content styleCode="Bold Destiny ">Immature Medical Granulocyte Center Ratio </content>0.3 %<content styleCode="Ital ics"> (< 1 %)</content> UNK 0-0.1 <content styleCode="Bold Dest[facility] ">Immature Medical Granulocyte Center Count </content>0.03 KCUMM<content styleCode="Ital ics"> (0-0.1 KCUMM)</content > ID Date Data Source GFR(Creatinine).[id number] 11/30/2019 07:05:00 PM EDT [facility] 0-0400 Name Value Range Interpretation Code Description Data Loyda rce(s) Supporting Document(s ) UNK <content [facility] styleCode="Bold"> Medical Cent er EGFR </content>Test not performed. GFR (Reference Range: not available)
ID Date Data Source Coagulation 11/30/2019 07:05:00 PM [facility] Rout.[id number] EDT Name Value Range Interpretation Description Data Sup porting Code Source(s) Document(s ) INR in 0.80-1.2 <content Saint Platelet poor 0 styleCode="Bold" [place] plasma by >INR Medical Coagulation </content>1.10 Center assay #<content styleCode="Itali cs"> (0.80-1.20 #)</content> UNK 9.0-13.0 <content styleCode="Bold" Destiny >Protime Medical </content>12.2 Center SEC<content styleCode="Itali cs"> (9.0-13.0 SEC)</content> aPTT in 25.1-36. <content Saint Platelet poor 5 styleCode="Bold" [place] plasma by >Partial Medical Coagulation Thromboplastin Center assay Time </content>29.9 SEC<content styleCode="Itali cs"> (25.1-36.5 SEC)</content> ID Date Data [id number] 11/30/2019 07:05:00 PM EDT [facility] -0400 Name Value Range Interpretation Description Data Sup porting Code Source(s) Document(s ) UNK <content [facility] Destiny styleCode="Bold Medical ">Amylase Center </content>Test not performed. IU/L (Reference Range: not available)
Lactate 0.7-2.0 Above upper panic <content [place] [Mass/volum limits styleCode="Bold Medical e] in Serum ">Lactic Acid Center or Plasma </content><cont ent styleCode="Bold ">2.7 MMOLL HH</content><co ntent styleCode="Ital ics"> (0.7-2.0 MMOLL)</content > Lipase <content [facility] [Enzymatic styleCode="Bold Medical activity/vo ">Lipase Center lume] in </content>Test Serum or not performed. Plasma IU/L (Reference Range: not available)
ID Date Data Source CardiacMarkers.[id number] 11/30/2019 07:05:00 PM EDT [facility] -0400 Name Value Range Interpretation Description Data Sup porting Code Source(s) Document(s ) Creatine <content [facility] kinase styleCode="Bold Medical [Enzymatic ">CK Center activity/vol </content>Test ume] in not performed. Serum or IU/L Plasma (Reference Range: not available)
Troponin <content [facility] I.cardiac styleCode="Bold Medical [Mass/volume ">Troponin I Center ] in Serum </content>Test or Plasma not performed. NG/ML (Reference Range: not available)
ID Date Data Source BMP.[id number] 11/30/2019 07:05:00 PM EDT [facility] Center Name Value Range Interpretation Description [...] Data Source Liver 11/01/2019 09:45:00 AM EST [facility] Profile.[id number] Name Value Range Interpretation Description Data Sup [...] (3.5-5.0 G/DL)</content> UNK 0.0-0.3 <content Saint styleCode="Bold"> [facility] Bilirubin, Direct Medical </content>< 0.2 Center MG/DL<content styleCode="Italic s"> (0.0-0.3 MG/DL)</content> ID Date Data Source HematologyRou.[id number] 11/01/2019 09:45:00 AM JEAN Bray [facility] 0500 Name Value Range Interpretation Description Data [...] ics"> (0 /100)</content> ID Date Data Source GFR(Creatinine).[id number] 11/01/2019 09:45:00 AM [facility] 0-0500 Name Value Range Interpretation Code Description Data Loyda rce(s) Supporting Document(s ) UNK > 60 Below low normal <content [facility] styleCode="Bold"> Medical Cent er EGFR </content>59 GFR L<content styleCode="Italic s"> (> 60 GFR)</content> ID Date Data Source BMP.[id number] 11/01/2019 09:45:00 AM EST [facility] Name Value Range Interpretation Description Data Sup porting Code Source(s) Document(s ) Carbon dioxide, 22-30 <content [facility] total styleCode="Bold"> [place] [Moles/volume] in Carbon Dioxide Medical Serum or Plasma </content>30 Center MEQ/L<content styleCode="Italic s"> (22-30 MEQ/L)</content> Chloride 98-107 Above high <content Saint [Moles/volume] in normal styleCode="Bold"> [facility] Serum or Plasma Chloride Medical </content>108 Center MEQ/L H<content styleCode="Italic s"> (98-107 MEQ/L)</content> Sodium 137-145 <content [facility] [Moles/volume] in styleCode="Bold"> [facility] Serum or Plasma Sodium Medical </content>145 Center MEQ/L<content styleCode="Italic s"> (137-145 MEQ/L)</content> Potassium 3.5-5.3 <content [facility] [Moles/volume] in styleCode="Bold"> [facility] Serum or Plasma Potassium Medical </content>3.8 Center [...] s"> (3.5-5.0 G/DL)</content> ID Date Data Source Urinalysis.[id number] 08/31/2019 12:00:00 AM JEAN Bray [facility] 0 Name Value Range Interpretation Description Data [...] by Test d">Urine Medical strip Specific Center [place] </content><= 1.005 L<content styleCode="Jody lics"> (1.015-1.025 )</content> [...] lics"> (NEGATIVE )</content> ID Date Data Source JEN.[id number] 08/31/2019 12:00:00 AM JAEN Bray [facility] -0500 Name Value Range Interpretation Description Data Sup porting Code Source(s) Document(s ) Cannabinoids <content Saint [Presence] in styleCode="Kirstin [facility] Urine by Screen d">Cannabinoid Medical method >50 ng/mL s Center </content>NEGA TIVE NG/ML (Reference Range: not available)<br/ > ID Date Data Source Liver 08/30/2019 06:59:00 PM EST [facility] Profile.[id number] Name Value Range Interpretation Description Data Sup [...] s"> (3.5-5.0 G/DL)</content> ID Date Data Source HematologyRou.[id number] 08/30/2019 06:59:00 PM JEAN Bray [facility] 0500 Name Value Range Interpretation Description Data Sup porting Code Source(s) Document(s ) Leukocytes 4.4-11.0 <content [facility] [#/volume] in styleCode="Bold [facility] Blood by ">White Blood Medical Automated count Cell Count Center </content>10.88 KCUMM<content styleCode="Ital ics"> (4.4-11.0 KCUMM)</content > Hematocrit 41.0-53. <content Saint [Volume 0 styleCode="Bold [facility] Fraction] of ">Hematocrit Medical Blood by </content>41.4 [...] ics"> (0 /100)</content> ID Date Data Source GFR(Creatinine).[id number] 08/30/2019 06:59:00 PM EST [facility] 0-0500 Name Value Range Interpretation Code Description Data Loyda rce(s) Supporting Document(s ) UNK > 60 <content [facility] styleCode="Bold"> Medical Cent er EGFR </content>86 GFR<content styleCode="Italic s"> (> 60 GFR)</content> ID Date Data [id number] 08/30/2019 06:59:00 PM EST [facility] Name Value Range Interpretation Description Data [...] Date Data Source Coagulation 08/28/2019 02:20:00 PM [facility] Rout.[id number] EST Name Value Range Interpretation Description Data Sup porting Code Source(s) Document(s ) UNK 9.0-13.0 <content [facility] styleCode="Bold" Destiny >Protime Medical </content>11.4 Center SEC<content styleCode="Itali cs"> (9.0-13.0 SEC)</content> INR in 0.80-1.2 <content [facility] Platelet poor 0 styleCode="Bold" [place]iny plasma by >INR Medical Coagulation </content>1.03 Center assay #<content styleCode="Itali cs"> (0.80-1.20 #)</content> aPTT in 25.1-36. Below low normal <content [facility] Platelet poor 5 styleCode="Bold" [place] plasma by >Partial Medical Coagulation Thromboplastin Center assay Time </content>23.8 SEC L<content styleCode="Itali cs"> (25.1-36.5 SEC)</content> ID Date Data Source CHEDA.[id number] 08/28/2019 02:20:00 PM EST [facility] -0500 Name Value Range Interpretation Description Data Sup porting Code Source(s) Document(s ) Natriuretic < 125 Above high normal <content Saint peptide.B styleCode="Kirstin [place]iny prohormone d">NT Pro BNP Medical N-Terminal </content>373 Center [Mass/volume] PG/ML in Serum or H<content Plasma styleCode="Jody lics"> (< 125 PG/ML)</conten t> ID Date Data Source CardiacMarkers.[id number] 08/28/2019 02:20:00 PM EST [facility] -0500 Name Value Range Interpretation Description Data Sup porting Code Source(s) Document(s ) Creatine 55-170 Below low normal <content Saint kinase styleCode="Bold [facility] [Enzymatic ">CK Medical activity/vol </content>47 Center ume] in IU/L L<content Serum or styleCode="Ital Plasma ics"> (55-170 IU/L)</content> Troponin < 0.034 <content [facility] I.cardiac styleCode="Bold [place] [Mass/volume ">Troponin I Medical ] in Serum </content>0.024 Center or Plasma NG/ML<content styleCode="Ital ics"> (< 0.034 NG/ML)</content > ID Date Data Source Liver 08/28/2019 02:20:00 PM EST [facility] Profile.[id number] Name Value Range Interpretation Description Data Sup [...] s"> (3.5-5.0 G/DL)</content> ID Date Data Source HematologyRou.[id number] 08/28/2019 02:20:00 PM JEAN Bray [facility] 0500 Name Value Range Interpretation Description Data [...] ics"> (0 /100)</content> ID Date Data Source GFR(Creatinine).[id number] 08/28/2019 02:20:00 PM JEAN gould [facility] 0-0500 Name Value Range Interpretation Code Description Data Loyda rce(s) Supporting Document(s ) UNK > 60 <content [facility] styleCode="Bold"> Medical Cent er EGFR </content>96 GFR<content styleCode="Italic s"> (> 60 GFR)</content> ID Date Data Source [facility].[id number] 08/28/2019 02:20:00 PM JEAN Martin [facility] Name Value Range Interpretation Description Data Sup porting Code Source(s) Document(s ) Potassium 3.5-5.3 <content Saint [Moles/volume] in styleCode="Bold"> [facility] Serum or Plasma Potassium Medical </content>4.2 Center MEQ/L<content styleCode="Italic s"> (3.5-5.3 MEQ/L)</content> Sodium 137-145 Above high <content Saint [Moles/volume] in normal styleCode="Bold"> [facility] Serum or Plasma Sodium Medical </content>146 Center MEQ/L H<content styleCode="Italic s"> (137-145 MEQ/L)</content> Carbon dioxide, 22-30 <content Saint total styleCode="Bold"> [place] [Moles/volume] in Carbon Dioxide Medical Serum or Plasma </content>25 Center MEQ/L<content styleCode="Italic s"> (22-30 MEQ/L)</content> Chloride 98-107 Above high <content [facility] [Moles/volume] in normal styleCode="Bold"> [facility] Serum or Plasma Chloride Medical </content>112 Center [...] s"> (0.2-1.3 MG/DL)</content> ID Date Data Source HematologyRou.[id number] 08/06/2019 02:30:00 AM JEAN Bray [facility] 0500 Name Value Range Interpretation Description Data [...] Above high <content Saint distribution 5 normal styleCode="Ba Dixon width [Ratio] by ">Red Cell Medical Automated [...] (0.0 KCUMM)</content > ID Date Data Source GFR(Creatinine).[id number] 08/06/2019 02:30:00 AM JEAN As[facility] 0-0500 Name Value Range Interpretation Code Description Data Loyda rce(s) Supporting Document(s ) UNK > 60 <content [facility] styleCode="Bold"> Medical Cent er EGFR </content>96 GFR<content styleCode="Italic s"> (> 60 GFR)</content> ID Date Data Source [facility].[id number] 08/06/2019 02:30:00 AM EST [facility] Name Value Range Interpretation Description [...] or d">Creatinine Medical Plasma </content>1.0 Center MG/DL<content styleCode="Joyd lics"> (0.5-1.3 MG/DL)</conten t> Glucose 74-106 <content [...] (8.4-10.2 MG/DL)</conten t> ID Date Data Source LIPID.[id number] 02/13/2019 01:40:00 AM EDT [facility] Name Value Range Interpretation Description Data [...] s"> (-<200 MG/DL)</content> ID Date Data Source HematologyRou.[id number] 02/13/2019 01:40:00 AM EDT [facility] 0400 Name Value Range Interpretation Description [...] (0.0 KCUMM)</content > ID Date Data Source GFR(Creatinine).[id number] 02/13/2019 01:40:00 AM EDT [facility] [facility] Name Value Range Interpretation Code Description Data Lodya rce(s) Supporting Document(s ) UNK > 60 <content [facility] styleCode="Bold"> Medical Cent er EGFR </content>96 GFR<content styleCode="Italic s"> (> 60 GFR)</content> ID Date Data Source CardiacMarkers.[id number] 02/13/2019 01:40:00 AM EDT [facility] -0400 Name Value Range Interpretation Description Data Sup porting Code Source(s) Document(s ) Troponin < 0.034 Above upper panic <content Saint I.cardiac limits styleCode="Bold Destiny [Mass/volume ">Troponin I Medical ] in Serum </content><cont Center or Plasma ent styleCode="Bold ">0.104 NG/ML HH</content><co ntent styleCode="Ital ics"> (< 0.034 NG/ML)</content > ID Date Data Source [facility].[id number] 02/13/2019 01:40:00 AM EDT [facility] Center Name Value Range Interpretation Description Data [...] GFR)</content> Calcium 8.4-10.2 <content Saint [Mass/volume] styleCode="Kirstin Dixon in Serum or d">Calcium Medical Plasma </content>8.5 Center MG/DL<content styleCode="Jody lics"> (8.4-10.2 MG/DL)</conten t> ID Date Data Source LIPID.[id number] 02/12/2019 05:45:00 PM EDT [facility] Center Name Value Range Interpretation Description Data [...] (> 60 MG/DL)</content> ID Date Data Source CardiacMarkers.[id number] 02/12/2019 05:45:00 PM EDT [facility] -0400 Name Value Range Interpretation Description Data Sup porting Code Source(s) Document(s ) Troponin < 0.034 Above upper panic <content Saint I.cardiac limits styleCode="Bold Destiny [Mass/volume ">Troponin I Medical ] in Serum </content><cont Center or Plasma ent styleCode="Bold ">0.099 NG/ML HH</content><co ntent styleCode="Ital ics"> (< 0.034 NG/ML)</content > ID Date Data Source LIPID 02/12/2019 05:45:00 PM EDT [facility] Name Value Range Interpretation Description [...] Data Source HematologyRou 02/12/2019 05:45:00 PM EDT [facility] Name Value Range Interpretation Description [...] in 5 styleCode="Bold Destiny Blood ">Hemoglobin Medical </content>10.2 Center G/DL L<content [...] NORMAL <content Saint styleCode="Bold Destiny ">Macrocyte Medical </content>IGH Center T <content styleCode="Ital ics"> (NORMAL )</content> UNK NORMAL <content Saint styleCode="Bold Destiny ">Anisocyte Medical </content>[facility] Center T <content styleCode="Ital ics"> (NORMAL )</content> [...] (41.0-53.0 %)</content> UNK 1.6-7.3 <content Saint styleCode="Bold Destiny ">Neutrophil Medical Count Center </content>2.85 KCUMM<content styleCode="Ital [...] mean 8.0-11.0 <content Saint volume [Entitic styleCode="Ba Destiny volume] in Blood ">Mean Platelet Medical by Automated Volume Center count </content>10.8 FL<content styleCode="Ital ics"> (8.0-11.0 FL)</content> ID Date Data Source GFR(Creatinine) 02/12/2019 05:45:00 PM EDT [facility] Name Value Range Interpretation Code Description Data Loyda rce(s) Supporting Document(s ) UNK > 60 <content [facility] styleCode="Bold"> Medical Cent er EGFR </content>71 GFR<content styleCode="Italic s"> (> 60 GFR)</content> UNK > 60 <content [facility] styleCode="Bold"> Medical Cent er EGFR </content>78 GFR<content styleCode="Italic s"> (> 60 GFR)</content> UNK > 60 <content [facility] styleCode="Bold"> Medical Cent er EGFR </content>96 GFR<content styleCode="Italic s"> (> 60 GFR)</content> UNK > 60 <content [facility] styleCode="Bold"> Medical Cent er EGFR </content>78 GFR<content styleCode="Italic s"> (> 60 GFR)</content> UNK > 60 <content [facility] styleCode="Bold"> Medical Cent er EGFR </content>96 GFR<content styleCode="Italic s"> (> 60 GFR)</content> UNK > 60 <content [facility] styleCode="Bold"> Medical Cent er EGFR </content>96 GFR<content styleCode="Italic s"> (> 60 GFR)</content> UNK > 60 <content [facility] styleCode="Bold"> Medical Cent er EGFR </content>78 GFR<content styleCode="Italic s"> (> 60 GFR)</content> UNK > 60 <content [facility] styleCode="Bold"> Medical Cent er EGFR </content>96 GFR<content styleCode="Italic s"> (> 60 GFR)</content> UNK > 60 <content [facility] styleCode="Bold"> Medical Cent er EGFR </content>96 GFR<content styleCode="Italic s"> (> 60 GFR)</content> ID Date Data Source CardiacMarkers 02/12/2019 05:45:00 PM EDT [facility] Name Value Range Interpretation Description [...] 0.034 NG/ML)</content > ID Date Data Source BMP 02/12/2019 05:45:00 PM EDT [facility] Name Value Range Interpretation Description [...] 98-107 <content Saint [Moles/volume] in styleCode="Bold"> [facility] Serum or Plasma Chloride Medical </content>98 Center MEQ/L<content styleCode="Italic s"> (98-107 MEQ/L)</content> Potassium 3.5-5.3 <content Saint [Moles/volume] in styleCode="Bold"> [facility] Serum or Plasma Potassium Medical </content>3.8 Center MEQ/L<content styleCode="Italic s"> (3.5-5.3 MEQ/L)</content> Sodium 137-145 Below low <content Saint [Moles/volume] in normal styleCode="Bold"> [facility] Serum or Plasma Sodium Medical </content>135 Center [...] IU/L)</content> UNK > 60 <content Saint styleCode="Bold"> Destiyn EGFR </content>96 Medical GFR<content Center styleCode="Italic s"> [...] 137-145 <content Saint [Moles/volume] in styleCode="Bold"> [facility] Serum or Plasma Sodium Medical </content>144 Center [...] 98-107 <content Saint [Moles/volume] in styleCode="Bold"> [facility] Serum or Plasma Chloride Medical </content>107 Center [...] 98-107 <content Saint [Moles/volume] in styleCode="Bold"> [facility] Serum or Plasma Chloride Medical </content>107 Center MEQ/L<content styleCode="Italic s"> (98-107 MEQ/L)</content> Potassium 3.5-5.3 <content Saint [Moles/volume] in styleCode="Bold"> [facility] Serum or Plasma Potassium Medical </content>4.0 Center MEQ/L<content styleCode="Italic s"> (3.5-5.3 MEQ/L)</content> Sodium 137-145 <content Saint [Moles/volume] in styleCode="Bold"> [facility] Serum or Plasma Sodium Medical </content>138 Center [...] 137-145 <content Saint [Moles/volume] in styleCode="Bold"> [facility] Serum or Plasma Sodium Medical </content>142 Center [...] <content Saint [Moles/volume] in normal styleCode="Bold"> [facility] Serum or Plasma Chloride Medical </content>111 Center [...] Data Source Liver 01/12/2019 06:45:00 AM EDT [facility] Profile.[id number] Name Value Range Interpretation Description Data Sup [...] Date Data Source Coagulation 01/12/2019 06:45:00 AM [facility] Rout.[id number] EDT Name Value Range Interpretation Description Data [...] cs"> (9.0-13.0 SEC)</content> ID Date Data Source ChemistrySpecia.[id number] 01/12/2019 06:45:00 AM EDT [facility] 0-0400 Name Value Range Interpretation Code Description Data Supporting Source(s) Document(s ) Folate > 3.0 <content [facility] [Mass/volum styleCode="Bold Medical e] in Serum ">Folic Acid Center or Plasma </content>15.1 NG/ML<content styleCode="Ital ics"> (> 3.0 NG/ML)</content > ID Date Data Source CHMROUTINECCDA.[id number] 01/12/2019 06:45:00 AM EDT [facility] -0400 Name Value Range Interpretation Description Data [...] Source Liver Profile 01/12/2019 06:45:00 AM EDT [facility] Name Value Range Interpretation Description [...] Data Source ChemistrySpecia 01/12/2019 06:45:00 AM EDT [facility] Name Value Range Interpretation Description [...] Data Source CHMROUTINECCDA 01/12/2019 06:45:00 AM EDT [facility] Name Value Range Interpretation Description Data Sup porting Code Source(s) Document(s ) Magnesium 1.6-2.3 Below low normal <content Saint [Mass/volume] styleCode="Kirstin Destiny in Serum or d">Magnesium Medical Plasma </content>1.4 Center MG/DL L<content styleCode="Jody lics"> (1.6-2.3 MG/DL)</conten t> UNK >= 1.0 <content Saint styleCode="[facility] d">AG Ratio Medical </content>1.4 Center NM<content [...] t> Lipase 23-300 <content Saint [Enzymatic styleCode="Kirstin Gays activity/volu d">Lipase Medical me] in Serum </content>127 [...] Below low normal <content Saint [Mass/volume] styleCode="Kirstin Gays in Serum or d">Total Medical Plasma Protein [...] Data Source Liver 01/11/2019 05:55:00 AM EDT [facility] Profile.[id number] Name Value Range Interpretation Description Data Sup [...] Date Data Source Coagulation 01/11/2019 05:55:00 AM [facility] Center Rout.[id number] EDT Name Value Range Interpretation Description Data [...] cs"> (25.1-36.5 SEC)</content> ID Date Data Source CHMROUTINECCDA.[id number] 01/11/2019 05:55:00 AM EDT [facility] Name Value Range Interpretation Description [...] Below low normal <content Saint [Mass/volume] styleCode="Kirstin Gays in Serum or d">Phosphorus Medical Plasma </content>2.0 Center MG/DL L<content styleCode="Jody lics"> (2.5-4.5 MG/DL)</conten t> Protein 6.3-8.2 Below low normal <content Saint [Mass/volume] styleCode="Kirstin Destiny in Serum or d">Total Medical Plasma Protein Center </content>5.4 G/DL L<content styleCode="Jody lics"> (6.3-8.2 G/DL)</content > ID Date Data Source CardiacMarkers.[id number] 01/11/2019 05:55:00 AM EDT [facility] -0400 Name Value Range Interpretation Description Data Sup porting Code Source(s) Document(s ) Troponin < 0.034 <content Saint I.cardiac styleCode="Bold Destiny [Mass/volume ">Troponin I Medical ] in Serum </content>0.021 Center or Plasma NG/ML<content styleCode="Ital ics"> (< 0.034 NG/ML)</content > ID Date Data Source CHMROUTINECCDA.[id number] 01/10/2019 01:15:00 PM EDT [facility] -0400 Name Value Range Interpretation Description Data Sup porting Code Source(s) Document(s ) Lactate 0.7-2.0 <content [facility] [Mass/volum styleCode="Bold Medical e] in Serum ">Lactic Acid Center or Plasma </content>0.9 MMOLL<content styleCode="Ital ics"> (0.7-2.0 MMOLL)</content > ID Date Data Source Hormones.[id number] 01/10/2019 06:31:00 AM EDT [facility] Name Value Range Interpretation Description Data Sup porting Code Source(s) Document(s ) Thyrotropin 0.465-4. <content Saint [Units/volume] 68 styleCode="Kirstin Destiny in Serum or d">Thyroid Medical Plasma by Stimulating Center Detection Hormone limit <= 0.05 </content>2.19 mIU/L MIU/L<content styleCode="Jody lics"> (0.465-4.68 MIU/L)</conten t> ID Date Data Source Coagulation 01/10/2019 06:31:00 AM [facility] Rout.[id number] EDT Name Value Range Interpretation Description Data [...] cs"> (0.80-1.20 #)</content> ID Date Data Source ChemistrySpecia.[id number] 01/10/2019 06:31:00 AM EDT [facility] 0-0400 Name Value Range Interpretation Description Data Sup porting Code Source(s) Document(s ) Cobalamin 239-931 <content Saint (Vitamin B12) styleCode="Kirstin Destiny [Mass/volume] d">Vitamin B12 Medical in Serum or </content>557 Center Plasma PG/ML<content styleCode="Jody lics"> (239-931 PG/ML)</conten t> ID Date Data Source Hormones 01/10/2019 06:31:00 AM EDT [facility] Name Value Range Interpretation Description [...] (0.465-4.68 MIU/L)</conten t> ID Date Data Source CardiacMarkers.[id number] 01/09/2019 05:12:00 AM EDT [facility] -0400 Name Value Range Interpretation Description Data Sup porting Code Source(s) Document(s ) Troponin < 0.034 Above upper panic <content Saint I.cardiac limits styleCode="Bold Destiny [Mass/volume ">Troponin I Medical ] in Serum </content><cont Center or Plasma ent styleCode="Bold ">0.036 NG/ML HH</content><co ntent styleCode="Ital ics"> (< 0.034 NG/ML)</content > ID Date Data Source Urinalysis.[id number] 01/07/2019 10:36:00 AM EDT [facility] 0 Name Value Range Interpretation Description Data [...] by Test d">Urine Medical strip Specific Center [place] </content>1.01 0 L<content styleCode="Jody lics"> (1.015-1.025 )</content> Ketones NEGATIVE <content Saint [Mass/volume] styleCode="Kirstin Destiny in Urine by d">Urine Medical Test strip Ketone Center </content>NEGA TIVE MG/DL<content styleCode="Jody lics"> (NEGATIVE MG/DL)</conten t> UNK NEGATIVE <content Saint styleCode="Kirstin Gays d">Urine Medical Bilirubin Center </content>NEGA TIVE <content [...] (NEGATIVE )</content> UNK 0-3 <content Saint styleCode="Kirstin Gays d">Urine White Medical Blood Cell Center </content>0-3 HPF<content styleCode="Jody lics"> (0-3 HPF)</content> UNK 0-3 <content Saint styleCode="Kirstin Gays d">Urine Red Medical Blood Cell Center </content>5 - 10 HPF<content styleCode="Jody lics"> (0-3 HPF)</content> UNK NEGATIVE <content Saint styleCode="Kirstin Gays d">Urine Medical Bacteria Center </content>FEW HPF<content styleCode="Jody lics"> (NEGATIVE HPF)</content> UNK <content Saint styleCode="Kirstin Gays d">Epithelial Medical Cell Center </content>2-5 LPF (Reference Range: not available)<br/ > ID Date Data Source Urinalysis 01/07/2019 10:36:00 AM EDT [facility] Name Value Range Interpretation Description [...] by Test d">Urine Medical strip Specific Center [place] </content>1.01 5 NM<content styleCode="Jody lics"> (1.015-1.025 NM)</content> [...] by Test d">Urine Medical strip Specific [facility] [place] </content>1.02 0 <content styleCode="Jody lics"> (1.015-1.025 )</content> [...] Gays d">Urine White Medical Blood Cell Center </content>10 - 20 HPF<content styleCode="Jody lics"> (0-3 HPF)</content> UNK <content Saint styleCode="Kirstin Gays d">Sperm Cell Medical </content>MODE Center RATE HPF (Reference Range: not available)<br/ > UNK NONE SEEN <content Saint styleCode="Kirstin Destiny d">Urine Mucus Medical </content>FEW Center LPF<content styleCode="Jody lics"> (NONE SEEN LPF)</content> UNK CLEAR <content Saint styleCode="Kirstin Destiny d">Urine Medical Clarity Center </content>MACARIO R <content styleCode="Jody lics"> (CLEAR )</content> Color of Urine YELLOW <content Saint styleCode="Kirstin Detsiny d">Color, Medical Urine Center </content>YELL OW <content [...] by Test d">Urine Medical strip Specific Center [place] </content>1.01 0 L<content styleCode="Jody lics"> (1.015-1.025 )</content> Leukocyte NEGATIVE <content Saint esterase styleCode="Kirstin Gays [Presence] in d">Urine Medical Urine by Test Leukocyte Center strip </content>NEGA TIVE <content styleCode="Jody lics"> (NEGATIVE )</content> Nitrite NEGATIVE <content Saint [Presence] in styleCode="Kirstin Dixon Urine by Test d">Urine Medical strip Nitrite Center </content>NEGA TIVE <content styleCode="Jody lics"> (NEGATIVE )</content> Urobilinogen 0.2-1.0 <content Saint [Units/volume] styleCode="Kirstin Dixon in Urine by d">Urine Medical [...] Date Data Source Coagulation 01/07/2019 10:20:00 AM [facility] Rout.[id number] EDT Name Value Range Interpretation Description Data Sup porting Code Source(s) Document(s ) INR in 0.80-1.2 <content Saint Platelet poor 0 styleCode="Bold" Destiny plasma by >INR Medical Coagulation </content>1.10 Center assay #<content styleCode="Itali cs"> (0.80-1.20 #)</content> UNK 9.0-13.0 <content Saint styleCode="Bold" Destiny >Protime Medical </content>12.4 Center SEC<content styleCode="Itali cs"> (9.0-13.0 SEC)</content> aPTT in 25.1-36. <content Saint Platelet poor 5 styleCode="Bold" [facility] plasma by >Partial Medical Coagulation Thromboplastin Center assay Time </content>34.5 SEC<content styleCode="Itali cs"> (25.1-36.5 SEC)</content> ID Date Data Source Microbiology.[id number] 01/07/2019 04:45:00 AM EDT [facility] 400 Name Value Range Interpretation Code Description Data Loyda rce(s) Supporting Document(s ) UNK <item><content [facility] styleCode="Bold"> Medical Cent er Culture Report </content>
<t able><tbody><tr>< td>Specimen Number:</td><td>[id number]</td></tr ><tr><td>Sample Collection Date/Time: </td><td> 9 4:45 AM</td></tr><tr>< td>Specimen Source:</td><td>B LOOD</td></tr><tr ><td>Culture Status:</td><td>F inal </td></tr><tr><td >Culture Report:</td><td>N O GROWTH 5 DAYS </td></tr><tr><td >Blood Culture:</td><td> Collection Plate Date: 01/07/2019 04:54 </td></tr></tbody ></table></item> UNK <item><content [facility] styleCode="Bold"> Medical [facility] er Culture Status </content>
<t able><tbody><tr>< td>Specimen Number:</td><td>[id number]</td></tr ><tr><td>Sample Collection Date/Time: </td><td> 9 4:45 AM</td></tr><tr>< td>Specimen Source:</td><td>B LOOD</td></tr><tr ><td>Blood Culture:</td><td> Collection Plate Date: 01/07/2019 04:54 </td></tr><tr><td >Culture Report:</td><td>N O GROWTH 5 DAYS </td></tr><tr><td >Culture Status:</td><td>F inal </td></tr></tbody ></table></item> ID Date Data Source Microbiology 01/07/2019 04:45:00 AM EDT [facility] Name Value Range Interpretation Code Description Data Loyda rce(s) Supporting Document(s ) UNK <item><content [facility] styleCode="Bold">[facility] nter lture Report </content>
<tab le><tbody><tr><td>S pecimen Number:</td><td>[id number]</td></tr><tr ><td>Sample Collection Date/Time: </td><td>12/17/2018 9:39 PM</td></tr><tr><td >Specimen Source:</td><td>URI NE</td></tr><tr><td >Urine Culture:</td><td>Co llection Plate Date: 12/17/2018 21:41 </td></tr><tr><td>C ulture Status:</td><td>Fin al </td></tr><tr><td>C ulture Report:</td><td>COA GULASE NEGATIVE STAPHYLOCOCCUS </td></tr><tr><td>C olony Count Urine:</td><td>< 10,000 CFU/ML </td></tr></tbody>< /table></item> UNK <item><content [facility] styleCode="Bold">[facility] nter lture Status </content>
<tab le><tbody><tr><td>S pecimen Number:</td><td>[id number]</td></tr><tr ><td>Sample Collection Date/Time: </td><td>12/17/2018 9:39 PM</td></tr><tr><td >Specimen Source:</td><td>URI NE</td></tr><tr><td >[place] Count Urine:</td><td>< 10,000 CFU/ML </td></tr><tr><td>C ulture Status:</td><td>Fin al </td></tr><tr><td>C ulture Report:</td><td>COA GULASE NEGATIVE STAPHYLOCOCCUS </td></tr><tr><td>U rine Culture:</td><td>Co llection Plate Date: 12/17/2018 21:41 </td></tr></tbody>< /table></item> UNK <item><content [facility] styleCode="Bold">[facility] nter lture Status </content>
<tab le><tbody><tr><td>S pecimen Number:</td><td>[id number]</td></tr><tr ><td>Sample Collection Date/Time: </td><td>01/07/2019 4:45 AM</td></tr><tr><td >Specimen Source:</td><td>BLO OD</td></tr><tr><td >Blood Culture:</td><td>Co llection Plate Date: 01/07/2019 04:54 </td></tr><tr><td>C ulture Report:</td><td>NO GROWTH 5 DAYS </td></tr><tr><td>C ulture Status:</td><td>Fin al </td></tr></tbody>< /table></item> UNK <item><content [facility] styleCode="Bold">Cu Medical Ce nter lture Report </content>
<tab le><tbody><tr><td>S pecimen Number:</td><td>[id number]</td></tr><tr ><td>Sample Collection Date/Time: </td><td>01/07/2019 4:45 AM</td></tr><tr><td >Specimen Source:</td><td>BLO OD</td></tr><tr><td >Blood Culture:</td><td>Co llection Plate Date: 01/07/2019 04:54 </td></tr><tr><td>C ulture Status:</td><td>Fin al </td></tr><tr><td>C ulture Report:</td><td>NO GROWTH 5 DAYS </td></tr></tbody>< /table></item> ID Date Data Source Microbiology.[id number] 01/07/2019 04:40:00 AM EDT [facility] 400 Name Value Range Interpretation Code Description Data Loyda rce(s) Supporting Document(s ) UNK <item><content [facility] styleCode="Bold"> Medical Cent er Culture Status </content>
<t able><tbody><tr>< td>Specimen Number:</td><td>[id number]</td></tr ><tr><td>Sample Collection Date/Time: </td><td> 9 4:40 AM</td></tr><tr>< td>Specimen Source:</td><td>B LOOD</td></tr><tr ><td>Culture Report:</td><td>N O GROWTH 5 DAYS </td></tr><tr><td >Culture Status:</td><td>F inal </td></tr><tr><td >Blood Culture:</td><td> Collection Plate Date: 01/07/2019 04:55 </td></tr></tbody ></table></item> UNK <item><content [facility] styleCode="Bold"> Medical [facility] er Culture Report </content>
<t able><tbody><tr>< td>Specimen Number:</td><td>[id number]</td></tr ><tr><td>Sample Collection Date/Time: </td><td> 4:40 AM</td></tr><tr>< td>Specimen Source:</td><td>B LOOD</td></tr><tr ><td>Blood Culture:</td><td> Collection Plate Date: 01/07/2019 04:55 </td></tr><tr><td >Culture Status:</td><td>F inal </td></tr><tr><td >Culture Report:</td><td>N O GROWTH 5 DAYS </td></tr></tbody ></table></item> ID Date Data Source LIPID.[id number] 12/29/2018 12:43:00 PM EDT [facility] Name Value Range Interpretation Description Data [...] (-<200 MG/DL)</conten t> UNK < 100 <content styleCode="Kirstin Dixon d">LDL-Cholest Medical [facility] Center </content>15 MG/DL<content styleCode="Jody lics"> (< 100 MG/DL)</conten t> ID Date Data Source Coagulation Rout 12/29/2018 12:43:00 PM EDT [facility] Name Value Range Interpretation Description [...] (< 500 ngFEU)</content> ID Date Data Source ChemistrySpecia.[id number] 12/19/2018 05:50:00 AM EDT [facility] 0-0400 Name Value Range Interpretation Description Data [...] 3.0 NG/ML)</conten t> ID Date Data Source Urinalysis.[id number] 12/17/2018 09:39:00 PM EDT [facility] 0 Name Value Range Interpretation Description Data Sup porting Code Source(s) Document(s ) Color of Urine YELLOW <content Saint styleCode="Kirstin Destiny d">Color, Medical Urine Center </content>YELL OW <content styleCode="Jody lics"> (YELLOW )</content> UNK CLEAR <content Saint styleCode="Kirstin Destiny d">Urine Medical Clarity Center </content>MACARIO R <content styleCode="Jody lics"> (CLEAR )</content> Glucose NEGATIVE <content Saint [Mass/volume] styleCode="Kirstin Dixon [...] 1.015-1.02 <content Saint gravity of 5 styleCode="Kirstin Dixon Urine by Test d">Urine Medical strip Specific Center [place] </content>1.02 0 <content styleCode="Jody lics"> (1.015-1.025 )</content> pH of Urine by 4.5-8.0 <content Saint Test strip styleCode="Kirstin Gays d">Urine pH Medical </content>6.5 Center <content styleCode="Jody lics"> (4.5-8.0 )</content> Protein NEGATIVE <content Saint [Mass/volume] styleCode="Kirstin Gays in Urine by d">Urine Medical Test strip Protein Center </content>100 MG/DL<content styleCode="Jody lics"> (NEGATIVE MG/DL)</conten t> Nitrite NEGATIVE <content Saint [Presence] in styleCode="Kirstin Gays Urine by Test d">Urine Medical strip Nitrite Center </content>NEGA TIVE <content styleCode="Jody lics"> (NEGATIVE )</content> Leukocyte NEGATIVE <content Saint esterase styleCode="Kirstin Dixon [...] HPF)</content> UNK NONE SEEN <content Saint styleCode="Kirstin Destiny d">Urine Mucus Medical </content>FEW Center LPF<content styleCode="Jody lics"> (NONE SEEN LPF)</content> UNK NEGATIVE <content Saint styleCode="Kirstin Destiny d">Urine Medical Bacteria Center </content>FEW HPF<content styleCode="Jody lics"> (NEGATIVE HPF)</content> UNK <content Saint styleCode="Kirstin Destiny d">Sperm Cell Medical </content>MODE Center RATE HPF (Reference Range: not available)<br/ > ID Date Data Source Microbiology.[id number] 12/17/2018 09:39:00 PM EDT [facility] 400 Name Value Range Interpretation Code Description Data Loyda rce(s) Supporting Document(s ) UNK <item><content [facility] styleCode="Bold">Cu Medical Ce nter lture Report </content>
<tab le><tbody><tr><td>S pecimen Number:</td><td>[id number]</td></tr><tr ><td>Sample Collection Date/Time: </td><td>12/17/2018 9:39 PM</td></tr><tr><td >Specimen Source:</td><td>URI NE</td></tr><tr><td >Culture Report:</td><td>COA GULASE NEGATIVE STAPHYLOCOCCUS </td></tr><tr><td>C olony Count Urine:</td><td>< 10,000 CFU/ML </td></tr><tr><td>U rine Culture:</td><td>Co llection Plate Date: 12/17/2018 21:41 </td></tr><tr><td>C ulture Status:</td><td>Fin al </td></tr></tbody>< /table></item> UNK <item><content [facility] styleCode="Bold">Cu Medical Ce nter lture Status </content>
<tab le><tbody><tr><td>S pecimen Number:</td><td>[id number]</td></tr><tr ><td>Sample Collection Date/Time: </td><td>12/17/2018 9:39 PM</td></tr><tr><td >Specimen Source:</td><td>URI NE</td></tr><tr><td >Culture Status:</td><td>Fin al </td></tr><tr><td>C ulture Report:</td><td>COA GULASE NEGATIVE STAPHYLOCOCCUS </td></tr><tr><td>U rine Culture:</td><td>Co llection Plate Date: 12/17/2018 21:41 </td></tr><tr><td>C olony Count Urine:</td><td>< 10,000 CFU/ML </td></tr></tbody>< /table></item> ID Date Data Source [id number] 12/17/2018 04:55:00 PM EDT [facility] Name Value Range Interpretation Description Data Sup porting Code Source(s) Document(s ) Triglyceride < 150 <content Saint [Mass/volume] in styleCode="Kirstin [facility] Serum or Plasma d">Triglycerid Medical es Center </content>103 MG/DL<content styleCode="Jody lics"> (< 150 MG/DL)</conten t> Cholesterol -<200 <content [facility] [Mass/volume] in styleCode="Kirstin [facility] Serum or Plasma d">Cholesterol Medical </content>162 Center MG/DL<content styleCode="Jody lics"> (-<200 MG/DL)</conten t> UNK > 60 <content Saint styleCode="[facility]in [facility] d">HDL- Medical Cholesterol Center </content>128 MG/DL<content styleCode="Jody lics"> (> 60 MG/DL)</conten t> UNK < 100 <content Saint styleCode="Kirstin Destiny d">LDL-Cholest [facility] Center </content>13 MG/DL<content styleCode="Jody lics"> (< [...] Smoker completed Daily Smoker [facility] 03:45:00 AM EDT Medical C enter [...] Smoker completed Daily Smoker [facility] 04:32:00 PM EDT Medical C enter [...] Current Smoker completed Current Smoker eCW1 ( [facility] 12:00:00 AM EST [facility] [...] 01/06/2019 Daily Smoker completed Daily Smoker [facility] 08:20:00 PM EDT Medical C enter [...] Current Smoker completed Current Smoker eCW1 ( [facility]) Smoking Unknown if ever completed Unknown if [...] smoked smoked [facility]) Vital Signs ID Date Data Source UNK Name Value Range Interpretation Code Description Data Source(s) Oxygen saturation 96 % 96 % [facility] blood [facility] by Pulse oximetry Heart rate 71 /min 71 /min [facility] Diastolic blood 110 mm[Hg] 110 mm[Hg] [facility] [place] Systolic blood 185 mm[Hg] 185 mm[Hg] [facility] Body temperature 36.296321 36.692989 [facility] Respiratory rate 19 /min 19 /min [facility] Oxygen saturation 98 % 98 % [facility] blood [facility] by Pulse oximetry Heart rate 111 /min 111 /min [facility] Diastolic blood 107 mm[Hg] 107 mm[Hg] [facility] pressure [facility] [place] Systolic blood 141 mm[Hg] 141 mm[Hg] [facility] pressure [facility] [place] Diastolic blood 97 mm[Hg] 97 mm[Hg] [facility] pressure [facility] Center Systolic blood 154 mm[Hg] 154 mm[Hg] [facility] pressure [facility] Center Diastolic blood 91 mm[Hg] 91 mm[Hg] [facility] pressure [facility] Center Systolic blood 158 mm[Hg] 158 mm[Hg] [facility] pressure [facility] Center Diastolic blood 95 mm[Hg] 95 mm[Hg] [facility] pressure [facility] Center Systolic blood 162 mm[Hg] 162 mm[Hg] [facility] pressure [facility] Center Systolic blood 150 mm[Hg] 150 mm[Hg] [facility] [place] Body temperature 36.044270 36.870296 [facility] Respiratory rate 16 /min 16 /min [facility] Oxygen saturation 96 % 96 % [facility] by Pulse oximetry Heart rate 90 /min 90 /min [facility] Diastolic blood 89 mm[Hg] 89 mm[Hg] [facility] [place] Body weight 77.904416 kg 77.383410 kg [facility] Body temperature 36.573755 36.241817 [facility] Respiratory rate 18 /min 18 /min [facility] Oxygen saturation 96 % 96 % [facility] Arterial blood [facility] by Pulse oximetry Heart rate 100 /min 100 /min [facility] Body height 167.957415 167.772435 cm [facility] Center Diastolic blood 92 mm[Hg] 92 mm[Hg] [facility] pressure Medical Center Systolic blood 142 mm[Hg] 142 mm[Hg] [facility] Body mass index 27.4 kg/m2 27.4 kg/m2 [facility] (BMI) [Ratio] Medical [facility] ter Body temperature 36.256983 36.973048 [facility] Respiratory rate 18 /min 18 /min [facility] Oxygen saturation 98 % 98 % [facility] Arterial blood [facility] by Pulse oximetry Heart rate 78 /min 78 /min [facility] Diastolic blood 97 mm[Hg] 97 mm[Hg] [facility] Systolic blood 128 mm[Hg] 128 mm[Hg] [facility] Body temperature 36.126318 36.419145 [facility] Respiratory rate 17 /min 17 /min [facility] Oxygen saturation 98 % 98 % [facility] blood [facility] by Pulse oximetry Heart rate 86 /min 86 /min [facility] Diastolic blood 81 mm[Hg] 81 mm[Hg] [facility] Systolic blood 130 mm[Hg] 130 mm[Hg] [facility] Body temperature 36.783043 36.463543 [facility] Respiratory rate 19 /min 19 /min [facility] Oxygen saturation 97 % 97 % [facility] blood [facility] by Pulse oximetry Heart rate 97 /min 97 /min [facility] Diastolic blood 89 mm[Hg] 89 mm[Hg] [facility] Systolic blood 132 mm[Hg] 132 mm[Hg] [facility] Body weight 72.330109 kg 72.938977 kg [facility] Body height 177.500837 177.366229 cm [facility] Body mass index 22.9 kg/m2 22.9 kg/m2 [facility] (BMI) [Ratio] Medical [facility] ter Body temperature 36.295365 36.231897 [facility] Respiratory rate 18 /min 18 /min [facility] Oxygen saturation 97 % 97 % [facility] Arterial blood Medical Center by Pulse oximetry Heart rate 97 /min 97 /min [facility] Diastolic blood 89 mm[Hg] 89 mm[Hg] [facility] pressure [facility] Systolic blood 137 mm[Hg] 137 mm[Hg] [facility] Body weight 77.854985 kg 77.932649 kg [facility] Body temperature 36.658743 36.568867 [facility] Respiratory rate 18 /min 18 /min [facility] Oxygen saturation 96 % 96 % [facility] Arterial blood [facility] by Pulse oximetry Heart rate 84 /min 84 /min [facility] Body height 193.304824 193.381013 cm [facility] Diastolic blood 87 mm[Hg] 87 mm[Hg] [facility] pressure Medical Center Systolic blood 144 mm[Hg] 144 mm[Hg] [facility] Body mass index 20.6 kg/m2 20.6 kg/m2 [facility] (BMI) [Ratio] Medical [facility] ter Body temperature 37.066350 37.804299 [facility] Respiratory rate 17 /min 17 /min [facility] Oxygen saturation 98 % 98 % [facility] Arterial blood [facility] by Pulse oximetry Heart rate 81 /min 81 /min [facility] Diastolic blood 76 mm[Hg] 76 mm[Hg] [facility] Center Systolic blood 139 mm[Hg] 139 mm[Hg] [facility] Body temperature 37.541054 37.745401 [facility] Respiratory rate 17 /min 17 /min [facility] Oxygen saturation 97 % 97 % [facility] Arterial blood [facility] by Pulse oximetry Heart rate 84 /min 84 /min [facility] Diastolic blood 83 mm[Hg] 83 mm[Hg] [facility] pressure Medical Center Systolic blood 147 mm[Hg] 147 mm[Hg] [facility] Body temperature 36.059941 36.819470 [facility] Respiratory rate 18 /min 18 /min [facility] Oxygen saturation 98 % 98 % [facility] Arterial blood [facility] by Pulse oximetry Heart rate 89 /min 89 /min [facility] Diastolic blood 80 mm[Hg] 80 mm[Hg] [facility] pressure Medical Center Systolic blood 134 mm[Hg] 134 mm[Hg] [facility] Body temperature 36.557086 36.140703 [facility] Respiratory rate 18 /min 18 /min [facility] Oxygen saturation 97 % 97 % [facility] Arterial blood [facility] by Pulse oximetry Heart rate 68 /min 68 /min [facility] Diastolic blood 81 mm[Hg] 81 mm[Hg] [facility] Systolic blood 134 mm[Hg] 134 mm[Hg] [facility] Body weight 77.888849 kg 77.507431 kg [facility] Body temperature 36.943403 36.917166 [facility] Respiratory rate 17 /min 17 /min [facility] Oxygen saturation 98 % 98 % [facility] Arterial blood [facility] by Pulse oximetry Heart rate 65 /min 65 /min [facility] Body height 193.513852 193.709659 cm [facility] Center Diastolic blood 80 mm[Hg] 80 mm[Hg] [facility] Systolic blood 137 mm[Hg] 137 mm[Hg] [facility] Body mass index 20.6 kg/m2 20.6 kg/m2 [facility] (BMI) [Ratio] Medical [facility] ter Body temperature 37.350304 37.225852 [facility] Respiratory rate 18 /min 18 /min [facility] Oxygen saturation 96 % 96 % [facility] blood [facility] by Pulse oximetry Heart rate 65 /min 65 /min [facility] Diastolic blood 66 mm[Hg] 66 mm[Hg] [facility] Center Systolic blood 149 mm[Hg] 149 mm[Hg] [facility] Body weight 77.156578 kg 77.115395 kg [facility] Measured [facility] Body temperature 36.267481 36.641107 [facility] Respiratory rate 20 /min 20 /min [facility] Oxygen saturation 96 % 96 % [facility] Arterial blood [facility] by Pulse oximetry Heart rate 48 /min 48 /min [facility] Body height 192.188833 192.802317 cm [facility] Center Diastolic blood 75 mm[Hg] 75 mm[Hg] [facility] pressure Medical Center Systolic blood 152 mm[Hg] 152 mm[Hg] [facility] Body mass index 20.6 kg/m2 20.6 kg/m2 [facility] (BMI) [Ratio] Medical [facility] Body temperature 36.375716 36.992757 [facility] Respiratory rate 18 /min 18 /min [facility] Oxygen saturation 97 % 97 % [facility] blood [facility] by Pulse oximetry Heart rate 79 /min 79 /min [facility] Diastolic blood 84 mm[Hg] 84 mm[Hg] [facility] Systolic blood 132 mm[Hg] 132 mm[Hg] [facility] Body temperature 36.892695 36.900412 [facility] Respiratory rate 18 /min 18 /min [facility] Oxygen saturation 97 % 97 % [facility] blood [facility] by Pulse oximetry Heart rate 76 /min 76 /min [facility] Diastolic blood 86 mm[Hg] 86 mm[Hg] [facility] Systolic blood 134 mm[Hg] 134 mm[Hg] [facility] Body temperature 36.629314 36.481708 [facility] Respiratory rate 18 /min 18 /min [facility] Oxygen saturation 96 % 96 % [facility] blood [facility] by Pulse oximetry Heart rate 80 /min 80 /min [facility] Diastolic blood 97 mm[Hg] 97 mm[Hg] [facility] Systolic blood 133 mm[Hg] 133 mm[Hg] [facility] Body temperature 36.079436 36.690784 [facility] Respiratory rate 18 /min 18 /min [facility] Oxygen saturation 97 % 97 % [facility] Arterial blood [facility] by Pulse oximetry Heart rate 89 /min 89 /min [facility] Diastolic blood 62 mm[Hg] 62 mm[Hg] [facility] pressure Medical Center Systolic blood 113 mm[Hg] 113 mm[Hg] [facility] Body temperature 36.344534 36.262038 [facility] Respiratory rate 18 /min 18 /min [facility] Oxygen saturation 97 % 97 % [facility] Arterial blood Medical Center by Pulse oximetry Heart rate 94 /min 94 /min [facility] Diastolic blood 59 mm[Hg] 59 mm[Hg] [facility] Systolic blood 106 mm[Hg] 106 mm[Hg] [facility] Body weight 77.144957 kg 77.100806 kg [facility] [place] Body height 185.883628 185.310078 cm [facility] Body mass index 22.4 kg/m2 22.4 kg/m2 [facility] (BMI) [Ratio] Medical [facility] Body temperature 36.028135 36.518759 [facility] Respiratory rate 18 /min 18 /min [facility] Oxygen saturation 98 % 98 % [facility] Arterial blood [facility] by Pulse oximetry Heart rate 98 /min 98 /min [facility] Diastolic blood 88 mm[Hg] 88 mm[Hg] [facility] Systolic blood 138 mm[Hg] 138 mm[Hg] [facility] Body temperature 36.885894 36.326169 [facility] Respiratory rate 18 /min 18 /min [facility] Oxygen saturation 97 % 97 % [facility] blood [facility] by Pulse oximetry Heart rate 100 /min 100 /min [facility] Diastolic blood 80 mm[Hg] 80 mm[Hg] [facility] pressure Medical Center Systolic blood 145 mm[Hg] 145 mm[Hg] [facility] Body weight 77.976497 kg 77.597286 kg [facility] Measured Medical Center Body temperature 36.4775[address] 36[address] [facility] Respiratory rate 17 /min 17 /min [facility] Oxygen saturation 97 % 97 % [facility] Arterial blood [facility] by Pulse oximetry Heart rate 120 /min 120 /min [facility] Body height 193.274170 193.545555 cm [facility] [place] Diastolic blood 92 mm[Hg] 92 mm[Hg] [facility] pressure Medical Center Systolic blood 148 mm[Hg] 148 mm[Hg] [facility] Body mass index 20.6 kg/m2 20.6 kg/m2 [facility] (BMI) [Ratio] Medical [facility] Body temperature 36.622714 36.324834 [facility] Respiratory rate 17 /min 17 /min [facility] Oxygen saturation 97 % 97 % [facility] Arterial blood [facility] by Pulse oximetry Heart rate 68 /min 68 /min [facility] Diastolic blood 107 mm[Hg] 107 mm[Hg] [facility] Systolic blood 166 mm[Hg] 166 mm[Hg] [facility] Body temperature 37.760580 37.342652 [facility] Respiratory rate 20 /min 20 /min [facility] Oxygen saturation 94 % 94 % [facility] blood [facility] by Pulse oximetry Heart rate 104 /min 104 /min [facility] Diastolic blood 107 mm[Hg] 107 mm[Hg] [facility] Systolic blood 165 mm[Hg] 165 mm[Hg] [facility] Body temperature 36.687320 36.976816 [facility] Respiratory rate 18 /min 18 /min [facility] Oxygen saturation 98 % 98 % [facility] Arterial blood [facility] by Pulse oximetry Heart rate 104 /min 104 /min [facility] Diastolic blood 105 mm[Hg] 105 mm[Hg] [facility] Systolic blood 192 mm[Hg] 192 mm[Hg] [facility] Body weight 85.175193 kg 85.362273 kg [facility] Measured Medical Center Body temperature 36.405127 36.990666 [facility] Respiratory rate 18 /min 18 /min [facility] Oxygen saturation 98 % 98 % [facility] Arterial blood [facility] by Pulse oximetry Heart rate 88 /min 88 /min [facility] Body height 180.888129 180.902437 cm [facility] Diastolic blood 98 mm[Hg] 98 mm[Hg] [facility] pressure Medical Center Systolic blood 160 mm[Hg] 160 mm[Hg] [facility] Body mass index 26.1 kg/m2 26.1 kg/m2 [facility] (BMI) [Ratio] Medical [facility] Body weight 77.387499 kg 77.286147 kg [facility] Measured [facility] Body temperature 36.766592 36.465487 [facility] Respiratory rate 18 /min 18 /min [facility] Oxygen saturation 95 % 95 % [facility] Arterial blood [facility] by Pulse oximetry Heart rate 86 /min 86 /min [facility] Body height 177.223769 177.171829 cm [facility] Diastolic blood 88 mm[Hg] 88 mm[Hg] [facility] Systolic blood 131 mm[Hg] 131 mm[Hg] [facility] Body mass index 24.3 kg/m2 24.3 kg/m2 [facility] ephs (BMI) [Ratio] Medical [facility] Body weight 90.912439 kg 90.628615 kg [facility] Measured [facility] Body temperature 36.785172 36.336212 [facility] Respiratory rate 20 /min 20 /min [facility] Oxygen saturation 98 % 98 % [facility] Arterial blood [facility] by Pulse oximetry Heart rate 76 /min 76 /min [facility] Body height 180.603688 180.014910 cm [facility] Diastolic blood 84 mm[Hg] 84 mm[Hg] [facility] Systolic blood 154 mm[Hg] 154 mm[Hg] [facility] Body mass index 27.6 kg/m2 27.6 kg/m2 [facility] (BMI) [Ratio] Medical [facility] ter Body temperature 36.296504 36.179086 [facility] Respiratory rate 18 /min 18 /min [facility] Oxygen saturation 97 % 97 % [facility] Arterial blood Medical Center by Pulse oximetry Heart rate 88 /min 88 /min [facility] Diastolic blood 85 mm[Hg] 85 mm[Hg] [facility] Systolic blood 151 mm[Hg] 151 mm[Hg] [facility] Body temperature 36.886960 36.964183 [facility] Respiratory rate 18 /min 18 /min [facility] Heart rate 93 /min 93 /min [facility] Diastolic blood 88 mm[Hg] 88 mm[Hg] [facility] pressure Medical Center Systolic blood 159 mm[Hg] 159 mm[Hg] [facility] [place] Body temperature 36.984854 36.032579 [facility] Respiratory rate 19 /min 19 /min [facility] Heart rate 88 /min 88 /min [facility] Diastolic blood 90 mm[Hg] 90 mm[Hg] [facility] pressure [facility] Center Systolic blood 154 mm[Hg] 154 mm[Hg] [facility] Body temperature 36.244086 36.603032 [facility] Respiratory rate 19 /min 19 /min [facility] Heart rate 92 /min 92 /min [facility] Diastolic blood 92 mm[Hg] 92 mm[Hg] [facility] Systolic blood 158 mm[Hg] 158 mm[Hg] [facility] [place] Body temperature 36.295646 36.701421 [facility] Respiratory rate 19 /min 19 /min [facility] Heart rate 90 /min 90 /min [facility] Diastolic blood 94 mm[Hg] 94 mm[Hg] [facility] pressure Medical Center Systolic blood 156 mm[Hg] 156 mm[Hg] [facility] [place] Body weight 95.539130 kg 95.661256 kg [facility] [place] Oxygen saturation 96 % 96 % [facility] blood [facility] by Pulse oximetry Body height 193.252765 193.405472 cm [facility] Center Body mass index 25.4 kg/m2 25.4 kg/m2 [facility] (BMI) [Ratio] Medical [facility] Diastolic blood 78 mm[Hg] 78 mm[Hg] eCW1 ([facility]) Systolic blood 124 mm[Hg] 124 mm[Hg] eCW1 ([facility] t pressure [facility]) Heart rate 91 /min 91 /min eCW1 ([facility]) Body mass index 22.72 kg/m2 22.72 kg/m2 eCW1 ([facility] aint (BMI) [Ratio] [facility] Body weight 177 [lb_av] 177 [lb_av] eCW1 ([facility] Measured [facility]) Body height 74 [in_us] 74 [in_us] eCW1 ([facility]) Body weight 100.440006 100.988933 kg [facility] Measured kg Medical Center Body temperature 36.671605 36.3636[address] [facility] Respiratory rate 19 /min 19 /min [facility] Oxygen saturation 97 % 97 % [facility] Arterial blood [facility] Center by Pulse oximetry Heart rate 88 /min 88 /min [facility] Body height 193.641129 193.307364 cm [facility] Center Diastolic blood 110 mm[Hg] 110 mm[Hg] [facility] pressure Medical Center Systolic blood 180 mm[Hg] 180 mm[Hg] [facility] pressure Medical Center Body mass index 26.8 kg/m2 26.8 kg/m2 [facility] (BMI) [Ratio] Medical [facility] Body temperature 37.880313 37.529055 [facility] Respiratory rate 19 /min 19 /min [facility] Oxygen saturation 98 % 98 % [facility] Arterial blood [facility] by Pulse oximetry Heart rate 90 /min 90 /min [facility] Diastolic blood 90 mm[Hg] 90 mm[Hg] [facility] pressure [facility] Center Systolic blood 160 mm[Hg] 160 mm[Hg] [facility] pressure [facility] Center Body temperature 37.431351 37.781853 [facility] Respiratory rate 19 /min 19 /min [facility] Oxygen saturation 98 % 98 % [facility] Arterial blood Medical Center by Pulse oximetry Heart rate 90 /min 90 /min [facility] Diastolic blood 90 mm[Hg] 90 mm[Hg] [facility] pressure [facility] Center Systolic blood 160 mm[Hg] 160 mm[Hg] [facility] Respiratory rate 20 /min 20 /min [facility] Heart rate 93 /min 93 /min [facility] Diastolic blood 105 mm[Hg] 105 mm[Hg] [facility] pressure Medical Center Systolic blood 165 mm[Hg] 165 mm[Hg] [facility] Body temperature 36.4945[address] [facility] Respiratory rate 20 /min 20 /min [facility] Oxygen saturation 97 % 97 % [facility] blood [facility] by Pulse oximetry Heart rate 94 /min 94 /min [facility] Diastolic blood 112 mm[Hg] 112 mm[Hg] [facility] Systolic blood 174 mm[Hg] 174 mm[Hg] [facility] Body weight 77.058078 kg 77.664015 kg [facility] Body temperature 36.115669 36.225188 [facility] Respiratory rate 18 /min 18 /min [facility] Oxygen saturation 97 % 97 % [facility] in [facility] blood [facility] by Pulse oximetry Heart rate 126 /min 126 /min [facility] Body height 177.750788 177.935304 cm [facility] Diastolic blood 108 mm[Hg] 108 mm[Hg] [facility] pressure [facility] Center Systolic blood 155 mm[Hg] 155 mm[Hg] [facility] Body mass index 24.3 kg/m2 24.3 kg/m2 [facility] (BMI) [Ratio] Medical [facility] [facility] Body weight 75.739095 kg 75.314017 kg [facility] Body temperature 36.4559[address] [facility] Respiratory rate 18 /min 18 /min [facility] Oxygen saturation 98 % 98 % [facility] blood [facility] by Pulse oximetry Heart rate 94 /min 94 /min [facility] Body height 180.764884 180.947112 cm [facility] Diastolic blood 90 mm[Hg] 90 mm[Hg] [facility] Systolic blood 180 mm[Hg] 180 mm[Hg] [facility] Body mass index 23.0 kg/m2 23.0 kg/m2 [facility] (BMI) [Ratio] Medical [facility] ter Body weight 82.740407 kg 82.501609 kg [facility] Body temperature 36.9567[address] 36[address]78[address] [facility] Respiratory rate 20 /min 20 /min [facility] Oxygen saturation 99 % 99 % [facility] in Arterial blood [facility] by Pulse oximetry Heart rate 93 /min 93 /min [facility] Body height 183.175765 183.842097 cm [facility] Diastolic blood 94 mm[Hg] 94 mm[Hg] [facility] Systolic blood 147 mm[Hg] 147 mm[Hg] [facility] Body mass index 24.4 kg/m2 24.4 kg/m2 [facility] (BMI) [Ratio] Medical [facility] ter Body weight 81.487016 kg 81.198450 kg [facility] Body height 193.863617 193.510983 cm [facility] Body mass index 21.91 kg/m2 21.91 kg/m2 [facility] (BMI) [Ratio] Medical [facility] ter Body temperature 36.066561 36.555888 [facility] Respiratory rate 18 /min 18 /min [facility] Heart rate 89 /min 89 /min [facility] Diastolic blood 97 mm[Hg] 97 mm[Hg] [facility] Systolic blood 143 mm[Hg] 143 mm[Hg] [facility] Body temperature 37.921729 37.543415 [facility] Respiratory rate 17 /min 17 /min [facility] Oxygen saturation 98 % 98 % [facility] in Arterial blood [facility] by Pulse oximetry Heart rate 88 /min 88 /min [facility] Diastolic blood 96 mm[Hg] 96 mm[Hg] [facility] Systolic blood 154 mm[Hg] 154 mm[Hg] [facility] Body weight 81.685475 kg 81.305724 kg [facility] Body temperature 37.099884 37.895029 [facility] Respiratory rate 17 /min 17 /min [facility] Oxygen saturation 98 % 98 % [facility] in [facility] blood [facility] by Pulse oximetry Heart rate 79 /min 79 /min [facility] Body height 193.227509 193.290528 cm [facility] Diastolic blood 87 mm[Hg] 87 mm[Hg] [facility] pressure Medical Center Systolic blood 152 mm[Hg] 152 mm[Hg] [facility] Body mass index 21.9 kg/m2 21.9 kg/m2 [facility] (BMI) [Ratio] Medical [facility] ter Body temperature 36.387862 36.858950 [facility] Respiratory rate 18 /min 18 /min [facility] Oxygen saturation 98 % 98 % [facility] in [facility] blood [facility] by Pulse oximetry Heart rate 90 /min 90 /min [facility] Diastolic blood 89 mm[Hg] 89 mm[Hg] [facility] Systolic blood 146 mm[Hg] 146 mm[Hg] [facility] Body temperature 36.110173 36.891504 [facility] Respiratory rate 17 /min 17 /min [facility] Oxygen saturation 98 % 98 % [facility] in [facility] blood [facility] by Pulse oximetry Heart rate 89 /min 89 /min [facility] Diastolic blood 91 mm[Hg] 91 mm[Hg] [facility] Systolic blood 152 mm[Hg] 152 mm[Hg] [facility] Body weight 77.025629 kg 77.997283 kg [facility] Body temperature 36.327568 36.063237 [facility] Respiratory rate 18 /min 18 /min [facility] Oxygen saturation 99 % 99 % [facility] in [facility] blood [facility] by Pulse oximetry Heart rate 81 /min 81 /min [facility] Body height 193.715032 193.901251 cm [facility] Diastolic blood 109 mm[Hg] 109 mm[Hg] [facility] Systolic blood 157 mm[Hg] 157 mm[Hg] [facility] Body mass index 20.6 kg/m2 20.6 kg/m2 [facility] (BMI) [Ratio] Medical [facility] ter Body weight 85.397341 kg 85.811283 kg [facility] Body temperature 36.333476 36.859036 [facility] Respiratory rate 18 /min 18 /min [facility] Oxygen saturation 98 % 98 % [facility] in Arterial blood [facility] by Pulse oximetry Heart rate 88 /min 88 /min [facility] Body height 190.117725 190.754239 cm [facility] Center Diastolic blood 83 mm[Hg] 83 mm[Hg] [facility] pressure [facility] Center Systolic blood 183 mm[Hg] 183 mm[Hg] [facility] Body mass index 23.4 kg/m2 23.4 kg/m2 [facility] (BMI) [Ratio] Medical [facility] Body temperature 36.185255 36.442581 [facility] Respiratory rate 18 /min 18 /min [facility] Oxygen saturation 97 % 97 % [facility] in [facility] blood [facility] by Pulse oximetry Heart rate 82 /min 82 /min [facility] Diastolic blood 77 mm[Hg] 77 mm[Hg] [facility] Systolic blood 131 mm[Hg] 131 mm[Hg] [facility] Body temperature 36.679447 36.207890 [facility] Respiratory rate 17 /min 17 /min [facility] Oxygen saturation 100 % 100 % [facility] in [facility] blood [facility] by Pulse oximetry Heart rate 101 /min 101 /min [facility] Diastolic blood 71 mm[Hg] 71 mm[Hg] [facility] Systolic blood 133 mm[Hg] 133 mm[Hg] [facility] Body temperature 37.324123 37.741724 [facility] Respiratory rate 18 /min 18 /min [facility] Heart rate 93 /min 93 /min [facility] Diastolic blood 76 mm[Hg] 76 mm[Hg] [facility] Systolic blood 143 mm[Hg] 143 mm[Hg] [facility] Body temperature 37.062716 37.222035 [facility] Oxygen saturation 96 % 96 % [facility] in Arterial blood [facility] by Pulse oximetry Heart rate 96 /min 96 /min [facility] Diastolic blood 100 mm[Hg] 100 mm[Hg] [facility] Systolic blood 161 mm[Hg] 161 mm[Hg] [facility] Body weight 77.351931 kg 77.582893 kg [facility] Body height 190.767323 190.953570 cm [facility] Body mass index 21.38 kg/m2 21.38 kg/m2 [facility] osephs (BMI) [Ratio] [facility] Body temperature 36.951505 36.670498 [facility] Respiratory rate 20 /min 20 /min [facility] Heart rate 90 /min 90 /min [facility] Diastolic blood 76 mm[Hg] 76 mm[Hg] [facility] Systolic blood 125 mm[Hg] 125 mm[Hg] [facility] Body weight 77.208265 kg 77.438116 kg [facility] Body temperature 36.892957 36.331271 [facility] Respiratory rate 20 /min 20 /min [facility] Heart rate 82 /min 82 /min [facility] Body height 190.993201 190.008990 cm [facility] Diastolic blood 103 mm[Hg] 103 mm[Hg] [facility] Systolic blood 155 mm[Hg] 155 mm[Hg] [facility] Body mass index 21.38 kg/m2 21.38 kg/m2 [facility] J osephs (BMI) [Ratio] [facility] Body temperature 36.430326 36.608727 [facility] Respiratory rate 18 /min 18 /min [facility] Oxygen saturation 99 % 99 % [facility] in Arterial blood [facility] by Pulse oximetry Heart rate 98 /min 98 /min [facility] Diastolic blood 98 mm[Hg] 98 mm[Hg] [facility] Systolic blood 159 mm[Hg] 159 mm[Hg] [facility] Body weight 80.763339 kg 80.222854 kg [facility] Respiratory rate 18 /min 18 /min [facility] Oxygen saturation 96 % 96 % [facility] in Arterial blood [facility] by Pulse oximetry Body height 190.853133 190.777984 cm [facility] Center Body mass index 22.0 kg/m2 22.0 kg/m2 [facility] (BMI) [Ratio] Medical [facility] ter Body temperature 36.083399 36.5698[address] [facility] Respiratory rate 18 /min 18 /min [facility] Oxygen saturation 98 % 98 % [facility] in Arterial blood [facility] by Pulse oximetry Heart rate 90 /min 90 /min [facility] Diastolic blood 103 mm[Hg] 103 mm[Hg] [facility] Systolic blood 160 mm[Hg] 160 mm[Hg] [facility] Body temperature 36.373908 36.5900[address] [facility] Respiratory rate 18 /min 18 /min [facility] Oxygen saturation 98 % 98 % [facility] in [facility] blood [facility] by Pulse oximetry Heart rate 88 /min 88 /min [facility] Diastolic blood 80 mm[Hg] 80 mm[Hg] [facility] Systolic blood 139 mm[Hg] 139 mm[Hg] [facility] Body weight 85.954743 kg 85.531034 kg [facility] Body temperature 36.211526 36[address]938[address] [facility] Respiratory rate 18 /min 18 /min [facility] Oxygen saturation 98 % 98 % [facility] in [facility] blood [facility] by Pulse oximetry Heart rate 93 /min 93 /min [facility] Body height 187.727782 187.063870 cm [facility] Diastolic blood 84 mm[Hg] 84 mm[Hg] [facility] pressure [facility] Center Systolic blood 136 mm[Hg] 136 mm[Hg] [facility] Body mass index 24.2 kg/m2 24.2 kg/m2 [facility] (BMI) [Ratio] Medical [facility] ter Diastolic blood mm[Hg] [facility] Systolic blood mm[Hg] [facility] Body temperature 37.574026 37.891326 [facility] Respiratory rate 18 /min 18 /min [facility] Oxygen saturation 95 % 95 % [facility] in Arterial blood [facility] by Pulse oximetry Heart rate 100 /min 100 /min [facility] Diastolic blood 94 mm[Hg] 94 mm[Hg] [facility] pressure [facility] Center Systolic blood 152 mm[Hg] 152 mm[Hg] [facility] Body temperature 36.184480 36.442395 [facility] Respiratory rate 17 /min 17 /min [facility] Oxygen saturation 98 % 98 % [facility] in Arterial blood [facility] by Pulse oximetry Heart rate 106 /min 106 /min [facility] Diastolic blood 100 mm[Hg] 100 mm[Hg] [facility] [place] Systolic blood 154 mm[Hg] 154 mm[Hg] [facility] Body temperature 36.272854 36.109944 [facility] Respiratory rate 17 /min 17 /min [facility] Oxygen saturation 98 % 98 % [facility] in Arterial blood [facility] by Pulse oximetry Heart rate 76 /min 76 /min [facility] Diastolic blood 104 mm[Hg] 104 mm[Hg] [facility] Systolic blood 155 mm[Hg] 155 mm[Hg] [facility] Body temperature 36.943152 36.907034 [facility] Respiratory rate 18 /min 18 /min [facility] Oxygen saturation 97 % 97 % [facility] in Arterial blood [facility] by Pulse oximetry Heart rate 78 /min 78 /min [facility] Diastolic blood 104 mm[Hg] 104 mm[Hg] [facility] Systolic blood 156 mm[Hg] 156 mm[Hg] [facility] Body weight 68.570004 kg 68.013182 kg [facility] Body temperature 36.371317 36.526506 [facility] Respiratory rate 17 /min 17 /min [facility] Oxygen saturation 95 % 95 % [facility] in Arterial blood [facility] by Pulse oximetry Heart rate 65 /min 65 /min [facility] Diastolic blood 95 mm[Hg] 95 mm[Hg] [facility] pressure [facility] [place] Systolic blood 145 mm[Hg] 145 mm[Hg] [facility] Body temperature 36.702546 36.397710 [facility] Respiratory rate 19 /min 19 /min [facility] Heart rate 110 /min 110 /min [facility] Diastolic blood 87 mm[Hg] 87 mm[Hg] [facility] Systolic blood 119 mm[Hg] 119 mm[Hg] [facility] Heart rate 106 /min 106 /min [facility] Body weight 81.315247 kg 81.810820 kg [facility] Body temperature 36.469539 36.379637 [facility] Respiratory rate 19 /min 19 /min [facility] Oxygen saturation 97 % 97 % [facility] in Arterial blood [facility] by Pulse oximetry Heart rate 110 /min 110 /min [facility] Body height 193.817811 193.591260 cm [facility] Diastolic blood 84 mm[Hg] 84 mm[Hg] [facility] Systolic blood 138 mm[Hg] 138 mm[Hg] [facility] Body mass index 21.9 kg/m2 21.9 kg/m2 [facility] (BMI) [Ratio] Medical [facility] ter Body temperature 36.709069 36.282869 [facility] Respiratory rate 18 /min 18 /min [facility] Oxygen saturation 96 % 96 % [facility] in Arterial blood [facility] by Pulse oximetry Heart rate 124 /min 124 /min [facility] Diastolic blood 105 mm[Hg] 105 mm[Hg] [facility] pressure [facility] Systolic blood 139 mm[Hg] 139 mm[Hg] [facility] Diastolic blood 86 mm[Hg] 86 mm[Hg] eCW1 ([facility] pressure [facility]) Systolic blood 150 mm[Hg] 150 mm[Hg] eCW1 ([facility]ryst[facility] t pressure [facility]) Deprecated Oxygen 99 % 99 % eCW1 (S aint saturation in [employer] Cap[facility] blood by [facility]) Oximetry Heart rate 84 /min 84 /min eCW1 ([facility]) Body mass index 21.70 kg/m2 21.70 kg/m2 eCW1 (S aint (BMI) [Ratio] [facility] Body weight 160 [lb_av] 160 [lb_av] [facility]CW1 ([facility]) Body height [in_us] eCW1 ([facility]) Body temperature 97.9 [degF] 97.9 [degF] eCW1 ( [facility]) Deprecated Oxygen 98 % 98 % eCW1 (S aint saturation in [facility] ica Capillary blood by [employer] [facility]) Oximetry Systolic blood 160 mm[Hg] 160 mm[Hg] eCW1 ([facility]) Diastolic blood 80 mm[Hg] 80 mm[Hg] eCW1 ([facility]a [facility] pressure [facility]) Respiratory rate 18 /min 18 /min eCW1 ( int [facility]) Body weight 160 [lb_av] 160 [lb_av] eCW1 ([facility] Body weight 22 [lb_av] 22 [lb_av] eCW1 ([facility]) Systolic blood 163 mm[Hg] 163 mm[Hg] eCW1 ([facility] pressure [facility]) Diastolic blood 85 mm[Hg] 85 mm[Hg] eCW1 ([facility] pressure [facility]) Heart rate 77 /min 77 /min eCW1 ([facility]) Body weight 160 [lb_av] 160 [lb_av] eCW1 ([facility]) Oxygen saturation 95 % 95 % [facility] hennessy in [facility] by Pulse oximetry Body temperature 36.323671 36.[address] [facility] Respiratory rate 19 /min 19 /min [facility] Heart rate 97 /min 97 /min [facility] Diastolic blood 78 mm[Hg] 78 mm[Hg] [facility] Systolic blood 113 mm[Hg] 113 mm[Hg] [facility] Body temperature 36.382878 36.622266 [facility] Respiratory rate 18 /min 18 /min [facility] Heart rate 75 /min 75 /min [facility] Diastolic blood 79 mm[Hg] 79 mm[Hg] [facility] Systolic blood 131 mm[Hg] 131 mm[Hg] [facility] Body temperature 36.491299 36.013433 [facility] Respiratory rate 18 /min 18 /min [facility] Heart rate 99 /min 99 /min [facility] Diastolic blood 92 mm[Hg] 92 mm[Hg] [facility] [place] Systolic blood 130 mm[Hg] 130 mm[Hg] [facility] Body temperature 36.912589 36.815120 [facility] Respiratory rate 18 /min 18 /min [facility] Heart rate 90 /min 90 /min [facility] Diastolic blood 72 mm[Hg] 72 mm[Hg] [facility] Systolic blood 134 mm[Hg] 134 mm[Hg] [facility] Body temperature 36.880155 36.285847 [facility] Respiratory rate 20 /min 20 /min [facility] Heart rate 90 /min 90 /min [facility] Diastolic blood 81 mm[Hg] 81 mm[Hg] [facility] Systolic blood 146 mm[Hg] 146 mm[Hg] [facility] Oxygen saturation 97 % 97 % [facility] in Arterial blood [facility] by Pulse oximetry Oxygen saturation 94 % 94 % [facility] in Arterial blood [facility] by Pulse oximetry Body temperature 37.627018 37.663991 [facility] Respiratory rate 20 /min 20 /min [facility] Heart rate 105 /min 105 /min [facility] Diastolic blood 97 mm[Hg] 97 mm[Hg] [facility] Systolic blood 152 mm[Hg] 152 mm[Hg] [facility] [place] Oxygen saturation 98 % 98 % [facility] in Arterial blood [facility] by Pulse oximetry Body temperature 36.561347 36.122763 [facility] Respiratory rate 20 /min 20 /min [facility] Heart rate 112 /min 112 /min [facility] Diastolic blood 102 mm[Hg] 102 mm[Hg] [facility] Systolic blood 145 mm[Hg] 145 mm[Hg] [facility] Body weight 76.533313 kg 76.165663 kg [facility] Body temperature 36.048581 36.290931 [facility] Respiratory rate 20 /min 20 /min [facility] Heart rate 108 /min 108 /min [facility] Diastolic blood 113 mm[Hg] 113 mm[Hg] [facility] pressure [facility] [place] Systolic blood 149 mm[Hg] 149 mm[Hg] [facility] Body temperature 42.721973 42.827588 [facility] Heart rate 111 /min 111 /min [facility] Diastolic blood 64 mm[Hg] 64 mm[Hg] [facility] Systolic blood 178 mm[Hg] 178 mm[Hg] [facility] Heart rate 108 /min 108 /min [facility] Diastolic blood 80 mm[Hg] 80 mm[Hg] [facility] Systolic blood 165 mm[Hg] 165 mm[Hg] [facility] Body temperature 37.550710 37.967977 [facility] Respiratory rate 22 /min 22 /min [facility] Oxygen saturation 96 % 96 % [facility] in Arterial blood [facility] by Pulse oximetry Respiratory rate 20 /min 20 /min [facility] Oxygen saturation 91 % 91 % [facility] in Arterial blood [facility] by Pulse oximetry Oxygen saturation 97 % 97 % [facility] in Arterial blood [facility] by Pulse oximetry Oxygen saturation 98 % 98 % [facility] in Arterial blood [facility] by Pulse oximetry Body temperature 36.342434 36.622253 [facility] Respiratory rate 19 /min 19 /min [facility] Oxygen saturation 98 % 98 % [facility] in Arterial blood [facility] by Pulse oximetry Heart rate 114 /min 114 /min [facility] Diastolic blood 93 mm[Hg] 93 mm[Hg] [facility] Systolic blood 171 mm[Hg] 171 mm[Hg] [facility] Body temperature 36.871701 36.493104 [facility] Respiratory rate 19 /min 19 /min [facility] Oxygen saturation 98 % 98 % [facility] in Arterial blood [facility] by Pulse oximetry Heart rate 118 /min 118 /min [facility] Diastolic blood 94 mm[Hg] 94 mm[Hg] [facility] Systolic blood 126 mm[Hg] 126 mm[Hg] [facility] Body temperature 36.029396 36.336251 [facility] Respiratory rate 19 /min 19 /min [facility] Oxygen saturation 97 % 97 % [facility] in Arterial blood [facility] by Pulse oximetry Heart rate 95 /min 95 /min [facility] Diastolic blood 80 mm[Hg] 80 mm[Hg] [facility] Systolic blood 140 mm[Hg] 140 mm[Hg] [facility] Body temperature 36.009035 36.965236 [facility] Respiratory rate 17 /min 17 /min [facility] Oxygen saturation 94 % 94 % [facility] in Arterial blood [facility] by Pulse oximetry Heart rate 103 /min 103 /min [facility] Diastolic blood 71 mm[Hg] 71 mm[Hg] [facility] Systolic blood 131 mm[Hg] 131 mm[Hg] [facility] Body temperature 36.740085 36.690672 [facility] Respiratory rate 20 /min 20 /min [facility] Oxygen saturation 93 % 93 % [facility] in Arterial blood [facility] by Pulse oximetry Heart rate 93 /min 93 /min [facility] Body height 193.299880 193.175252 cm [facility] Diastolic blood 109 mm[Hg] 109 mm[Hg] [facility] Systolic blood 150 mm[Hg] 150 mm[Hg] [facility] Body temperature 36.603991 36.229882 [facility] Body temperature 36.715768 36.695714 [facility] Respiratory rate 20 /min 20 /min [facility] Heart rate 120 /min 120 /min [facility] Diastolic blood 95 mm[Hg] 95 mm[Hg] [facility] pressure Medical Center Systolic blood 126 mm[Hg] 126 mm[Hg] [facility] Systolic blood 138 mm[Hg] 138 mm[Hg] [facility] Body temperature 36.576713 36.779388 [facility] Respiratory rate 20 /min 20 /min [facility] Heart rate 113 /min 113 /min [facility] Diastolic blood 98 mm[Hg] 98 mm[Hg] [facility] [place] Body temperature 36.807180 36.760859 [facility] Respiratory rate 18 /min 18 /min [facility] Heart rate 95 /min 95 /min [facility] Diastolic blood 102 mm[Hg] 102 mm[Hg] [facility] Systolic blood 142 mm[Hg] 142 mm[Hg] [facility] [place] Body temperature 36.889580 36.832603 [facility] Respiratory rate 20 /min 20 /min [facility] Heart rate 105 /min 105 /min [facility] Diastolic blood 82 mm[Hg] 82 mm[Hg] [facility] pressure Medical [place] Systolic blood 148 mm[Hg] 148 mm[Hg] [facility] Respiratory rate 20 /min 20 /min [facility] Heart rate 116 /min 116 /min [facility] Diastolic blood 90 mm[Hg] 90 mm[Hg] [facility] Systolic blood 129 mm[Hg] 129 mm[Hg] [facility] [place] Oxygen saturation 98 % 98 % [facility] in Arterial blood Medical Center by Pulse oximetry Body temperature 36.787041 36.903471 [facility] Respiratory rate 19 /min 19 /min [facility] Heart rate 114 /min 114 /min [facility] Diastolic blood 111 mm[Hg] 111 mm[Hg] [facility] pressure Medical Center Systolic blood 155 mm[Hg] 155 mm[Hg] [facility] Body temperature 36.497855 36.348797 [facility] Respiratory rate 18 /min 18 /min [facility] Heart rate 131 /min 131 /min [facility] Diastolic blood 111 mm[Hg] 111 mm[Hg] [facility] pressure Medical Center Systolic blood 152 mm[Hg] 152 mm[Hg] [facility] pressure Medical Center Heart rate 130 /min 130 /min [facility] Diastolic blood 108 mm[Hg] 108 mm[Hg] [facility] pressure Medical Center Systolic blood 153 mm[Hg] 153 mm[Hg] [facility] pressure Medical Center Heart rate 113 /min 113 /min [facility] Diastolic blood 121 mm[Hg] 121 mm[Hg] [facility] pressure Medical Center Systolic blood 150 mm[Hg] 150 mm[Hg] [facility] Body temperature 36.095375 36.750580 [facility] Respiratory rate 18 /min 18 /min [facility] Heart rate 124 /min 124 /min [facility] Diastolic blood 90 mm[Hg] 90 mm[Hg] [facility] pressure Medical Center Systolic blood 147 mm[Hg] 147 mm[Hg] [facility] Body temperature 36.200022 36.767391 [facility] Respiratory rate 17 /min 17 /min [facility] Body weight 78.741522 kg 78.230137 kg [facility] Body height 187.863562 187.223193 cm [facility] Body mass index 22.28 kg/m2 22.28 kg/m2 [facility] (BMI) [Ratio] [facility] [address] Body temperature 36.255472 36.893130 [facility] Respiratory rate 20 /min 20 /min [facility] Oxygen saturation 98 % 98 % [facility] in Arterial blood [facility] by Pulse oximetry Oxygen saturation 99 % 99 % [facility] in Arterial blood [facility] by Pulse oximetry Body weight 80.145469 kg 80.796267 kg [facility] Oxygen saturation 96 % 96 % [facility] in Arterial blood [facility] by Pulse oximetry Body height 177.727616 177.269817 cm [facility] Body mass index 25.3 kg/m2 25.3 kg/m2 [facility] (BMI) [Ratio] Medical [facility] ter Body temperature 36.816418 36.182567 [facility] Respiratory rate 20 /min 20 /min [facility] Heart rate 100 /min 100 /min [facility] Diastolic blood 84 mm[Hg] 84 mm[Hg] [facility] pressure Medical Center Systolic blood 115 mm[Hg] 115 mm[Hg] [facility] [place] Body temperature 36.904507 36.049274 [facility] Respiratory rate 20 /min 20 /min [facility] Heart rate 92 /min 92 /min [facility] Diastolic blood 112 mm[Hg] 112 mm[Hg] [facility] [place] Systolic blood 158 mm[Hg] 158 mm[Hg] [facility] Body temperature 36.465964 36.590466 [facility] Respiratory rate 20 /min 20 /min [facility] Heart rate 91 /min 91 /min [facility] Diastolic blood 93 mm[Hg] 93 mm[Hg] [facility] Center Systolic blood 138 mm[Hg] 138 mm[Hg] [facility] Body temperature 36.457292 36.613298 [facility] Respiratory rate 20 /min 20 /min [facility] Heart rate 98 /min 98 /min [facility] Diastolic blood 96 mm[Hg] 96 mm[Hg] [facility] Systolic blood 140 mm[Hg] 140 mm[Hg] [facility] Body temperature 36.932208 36.709000 [facility] Respiratory rate 20 /min 20 /min [facility] Heart rate 100 /min 100 /min [facility] Diastolic blood 89 mm[Hg] 89 mm[Hg] [facility] Center Systolic blood 149 mm[Hg] 149 mm[Hg] [facility] Body weight 70.679455 kg 70.769209 kg [facility] Measured [facility] Body weight 72.274371 kg 72.339831 kg [facility] Body weight 71.770640 kg 71.327675 kg [facility] Body height 193.079430 193.667231 cm [facility] Medical Center Body mass index 19.29 kg/m2 19.29 kg/m2 [facility] (BMI) [Ratio] [facility] [address] Body weight 71.267778 kg 71.671157 kg [facility] Body height 193.234396 193.325812 cm [facility] Medical Center Body mass index 19.29 kg/m2 19.29 kg/m2 [facility] Bianca osep (BMI) [Ratio] Medical [facility] ter Oxygen saturation 98 % 98 % [facility] by Pulse oximetry Body temperature 37.058322 37.826717 [facility] Respiratory rate 20 /min 20 /min [facility] Heart rate 96 /min 96 /min [facility] Diastolic blood 98 mm[Hg] 98 mm[Hg] [facility] Center Systolic blood 152 mm[Hg] 152 mm[Hg] [facility] Body temperature 37.394908 37.725[address] [facility] Respiratory rate 18 /min 18 /min [facility] Heart rate 95 /min 95 /min [facility] Diastolic blood 100 mm[Hg] 100 mm[Hg] [facility] Systolic blood 146 mm[Hg] 146 mm[Hg] [facility] Body temperature 37.689360 37.911008 [facility] Respiratory rate 18 /min 18 /min [facility] Heart rate 89 /min 89 /min [facility] Diastolic blood 87 mm[Hg] 87 mm[Hg] [facility] Systolic blood 138 mm[Hg] 138 mm[Hg] [facility] Body temperature 36.698111 36.736446 [facility] Respiratory rate 18 /min 18 /min [facility] Heart rate 86 /min 86 /min [facility] Diastolic blood 77 mm[Hg] 77 mm[Hg] [facility] Systolic blood 140 mm[Hg] 140 mm[Hg] [facility] Body temperature 37.916089 37.437859 [facility] Respiratory rate 19 /min 19 /min [facility] Heart rate 97 /min 97 /min [facility] Diastolic blood 99 mm[Hg] 99 mm[Hg] [facility] Systolic blood 133 mm[Hg] 133 mm[Hg] [facility] Oxygen saturation 95 % 95 % [facility] in Arterial blood Medical Center by Pulse oximetry Oxygen saturation 99 % 99 % [facility] in Arterial blood [facility] by Pulse oximetry Oxygen saturation 96 % 96 % [facility] in Arterial blood [facility] by Pulse oximetry Oxygen saturation 98 % 98 % [facility] J [facility] in Arterial blood Medical Center by Pulse oximetry Body temperature 36.7864[address] [facility] Respiratory rate 18 /min 18 /min [facility] Heart rate 98 /min 98 /min [facility] Diastolic blood 94 mm[Hg] 94 mm[Hg] [facility] Systolic blood 142 mm[Hg] 142 mm[Hg] [facility] Body temperature 36.649385 36.029[address] [facility] Diastolic blood 89 mm[Hg] 89 mm[Hg] [facility] Systolic blood 138 mm[Hg] 138 mm[Hg] [facility] Patient Treatment Plan of Care Planned Activity Planned Date Details Description Data Source (s) Digoxin 0.125 MG Oral Tablet eCW1 ([facility] ) Metoprolol Succinate 100 MG eCW1 ([facility] ) 24 HR Isosorbide Mononitrate eCW1 ([facility] 30 MG Extended Release Oral Medical Practice ) Tablet 24 HR Nifedipine 30 MG eCW1 ([facility] Extended Release Oral [facility]) Spironolactone 25 MG Oral eC W1 ([facility] Tablet Medical Pract[facility] ) apixaban 5 MG Oral Tablet eC W1 ([facility] [Eliquis] Medical Practic e ) Hydralazine Hydrochloride 50 eCW1 ([facility] MG Oral Tablet [facility]) Aspirin 81 MG Delayed Release eCW1 ([facility] Oral Tablet Medical Pract[facility] ) atorvastatin 40 MG Oral eCW1 ([facility] Tablet Medical Pract[facility] ) spironolactone 25 mg [facility] Medical TabletDirections: 1 tablet C enter oral daily acetaminophen 500 mg [facility] Medical TabletDirections: 1 tablet C enter oral every six hours PRN pain aspirin 81 mg tablet,delayed [facility] Medical release (DR/EC)Directions: 1 Center tablet oral daily apixaban (Eliquis) 5 mg [facility] TabletDirections: 1 tablet C enter oral twice a day digoxin 125 mcg [facility] TabletDirections: 1 tablet C enter oral daily aspirin 81 mg tablet,delayed [facility] Medical release (DR/EC) Center isosorbide mononitrate 30 mg [facility] Medical Tablet Extended Release 24 hr Center metoprolol succinate [address] [facility] Tablet Extended Release 24 C enter hrDirections: 1 tablet oral daily hydrALAZINE 100 mg [facility] TabletDirections: 1 tablet C enter oral every eight hours potassium chloride 10 mEq Sa [facility] Medical Tablet Extended Center ReleaseDirections: 1 tablet oral daily metoprolol succinate 50 mg S [facility] Tablet Extended Release 24 hr Center potassium chloride 10 mEq Sa [facility] Tablet Extended Release Cent er isosorbide mononitrate 30 mg [facility] Tablet Extended Release 24 C enter hrDirections: 1 tablet oral daily Cefuroxime 500 MG Oral Tablet [facility] 24 HR Nifedipine 30 MG eCW1 ([facility] Extended Release Oral [facility]) 24 HR Isosorbide Mononitrate eCW1 ([place] 30 MG Extended Release Oral [facility]) Tablet Digoxin 0.125 MG Oral Tablet eCW1 ([facility]) Aspirin 81 MG Delayed Release eCW1 ([facility] Oral Tablet [facility]) Metoprolol Succinate 100 MG eCW1 ([facility]) Hydralazine Hydrochloride 50 eCW1 ([place] MG Oral Tablet [facility]) atorvastatin 40 MG Oral eCW1 ([facility] Tablet Medical [facility]) apixaban 5 MG Oral Tablet eC W1 ([facility] [Eliqu] Medical Pract[facility]) Spironolactone 25 MG Oral eC W1 ([facility] Tablet Medical Pract[facility]) Acetaminophen 500 MG Oral Sa int [facility] Tablet Center Spironolactone 25 MG Oral [facility] Tablet Center Potassium Chloride 10 MEQ Sa [facility] Medical Extended Release Oral Tablet Center 24 HR metoprolol succinate 50 [facility] Medical MG Extended Release Oral [facility] Tablet 24 HR Isosorbide Mononitrate [facility] 30 MG Extended Release Oral Center Tablet 24 HR Isosorbide Mononitrate [facility] 30 MG Extended Release Oral Center Tablet Hydralazine Hydrochloride 100 [facility] Medical MG Oral Tablet Center digoxin [address] [facility] TabletDirections: 1 tablet C enter oral daily Aspirin 81 MG Delayed Release [facility] Oral Tablet Center apixaban 5 MG Oral Tablet [facility] [[facility]] [place] benzonatate 100 MG Oral [facility] Capsule Center Prednisone 20 MG Oral Tablet [facility] Potassium Chloride 10 MEQ eC W1 ([facility] Extended Release Oral [facility]) Albuterol 0.09 MG/ACTUAT [facility] Metered Dose Inhaler Center 120 ACTUAT Budesonide 0.16 S [facility] MG/ACTUAT / formoterol Cente r fumarate 0.0045 MG/ACTUAT Metered Dose Inhaler [Symbicort] 24 HR Isosorbide Mononitrate [facility] 30 MG Extended Release Oral Center Tablet Digoxin 0.125 MG Oral Tablet [facility] Hydralazine Hydrochloride 50 [facility] MG Oral Tablet Center apixaban 5 MG Oral Tablet [facility] [[facility] [place] atorvastatin 40 MG Oral [facility] Spironolactone 25 MG Oral [facility] 24 HR metoprolol succinate [facility] 100 MG Extended Release Oral Center Tablet potassium chloride ([facility] M20) 20 mEq tablet,ER Center particles/crystals potassium chloride ([facility] M20) 20 mEq tablet,ER Center particles/crystalsDirections: 1 tablet oral daily 24 HR Isosorbide Mononitrate [facility] 30 MG Extended Release Oral Center Tablet Spironolactone [address] [facility] Center Prednisone 10 MG Oral Tablet [facility] 24 HR metoprolol succinate S [facility] 100 MG Extended Release Oral Center Tablet Hydralazine Hydrochloride 50 [facility] Medical MG Oral Tablet Center Folic Acid 1 MG Oral Tablet [facility] atorvastatin 40 MG Oral [facility] Tablet Center apixaban 5 MG Oral Tablet [facility] [Eliquis] Center carbamide peroxide 65 MG/ML [facility] [place]
--- NOTE | 2020-06-28 05:47 | PDOC ---
History of Present Illness - General Chief Complaint: Weakness Stated Complaint: WEAKNESS Time Seen by Provider: 06/28/20 05:30 History Source: Patient Exam Limitations: No Limitations - History of Present Illness Initial Comments: 06/28/20 05:47 70 yo M with a past medical history of HLD, HTN, COPD (currently not on home O2), atrial fibrillation (on eliquis, however non compliant with medication for 2 days), and ETOH abuse (last drink of 3-4 ounces of vodka prior to presentation) presents to the emergency department with continuation of complaints that he had in an earlier presentation approximately 12 hours ago. Per the patient, for the past 1 year, he has had recurrent progressive weakness episodes, most notably when he walks. He left AMA earlier today and was noted to have normal labs and CXR. The patient denies acute worsening of symptoms from that earlier presentation. He also states he presented to the emergency department because he became concerned, after watching a commercial within a few hours of presentation. Denies the following: fevers, chills, SOB, chest pain, nausea, vomiting, dysuria, hematuria, diarrhea, abdominal pain, confusion, headache, recent trauma, and neck pain. Past History - Medical History Allergies/Adverse Reactions: Allergies Allergy/AdvReac Type Severity Reaction Status Date / Time lisinopril Allergy Severe Swelling Verified 06/28/20 07:18 enalapril Allergy Swelling Verified 06/28/20 07:18 Home Medications: Ambulatory Orders Hydralazine HCl 10 mg PO DAILY 01/27/20 Apixaban [Eliquis] 5 mg PO BID 02/18/20 Metoprolol Succinate 75 mg PO BID 03/23/20 Albuterol Sulfate Inhaler - [Ventolin HFA Inhaler -] 1 - 2 inh PO Q4H #1 inhaler 05/31/20 Anemia: No Asthma: No Cancer: No Cardiac Disorders: Yes (Afib (on Eliquis), [facility]) CVA: No COPD: Yes CHF: No DVT: No Dementia: No Diabetes: No Dialysis: No GI Disorders: No Disorders: No HTN: Yes Hypercholesterolemia: Yes Kidney Stones: No Liver Disease: No Psychiatric Problems: Yes (Alcohol Use Disorder) Seizures: Yes (09/2018 hospitalization) Thyroid Disease: No Lung CA: No - Surgical History Abdominal Surgery: No Appendectomy: No Cardiac Surgery: No Cholecystectomy: No Gastric Stapling: No GI Surgery: No Lung Surgery: No Neurologic Surgery: No - Immunization History Td Vaccination: Yes TDAP Vaccination: Yes Immunization Up to Date: Yes - Psycho-Social/Smoking History Smoking History: Current some day smoker Have you smoked in the past 12 months: Yes Number of Cigarettes Smoked Daily: 10 Information on smoking cessation initiated: No 'Breaking Loose' booklet given: 03/31/20 - Substance Abuse Hx (Audit-C & DAST Scrn) How often the patient has a drink containing alcohol: Monthly or less Number of drinks the patient has on a typical day: 1 or 2 How often the patient has six or more drinks on one occasion: Less than monthly Score: In Men: 4 or > Positive; In Women: 3 or > Positive: 2 Screen Result (Pos requires Nsg. Audit-10AR): Negative In the last yr the pt used illegal drug/Rx for NonMed reason: No Score: Yes response is considered Positive: 0 Screen Result (Positive result requires Nsg. DAST-10): Negative Review of Systems - Review of Systems Able to Perform ROS?: Yes Is the patient limited [place] proficient: No Constitutional: No: Chills, Diaphoresis, Fever, Weakness HEENTM: No: Eye Pain, Ear Pain, Nose Pain, Throat Pain Respiratory: No: Cough, Shortness of Breath Cardiac (ROS): No: Chest Pain, Lightheadedness, Syncope ABD/GI: No: Diarrhea, Nausea, Vomiting : No: Dysuria, Hematuria Musculoskeletal: No: Back Pain Integumentary: No: Bruising Neurological: No: Headache Psychiatric: No: Change in Appetite Endocrine: No: Unexplained Weight Gain *Physical Exam - Vital Signs Last Vital Signs Temp Pulse Resp BP Pulse Ox 97.7 F 96 H 18 172/89 H 97 06/28/20 05:21 06/28/20 05:21 06/28/20 05:21 06/28/20 05:21 06/28/20 05:21 - Physical Exam General Appearance: Yes: Nourished, Appropriately Dressed, Alcohol on Breath, Intoxicated. No: Apparent Distress HEENT: positive: EOMI, MARY, Normal Voice, Symmetrical, Pharynx Normal, Hearing Grossly Normal. negative: Pale Conjunctivae, Scleral Icterus (R), Scleral Icterus (L), Muffled/Hoarse voice, Pharyngeal Erythema, Tonsillar Exudate, Tonsillar Erythema, Nasal Congestion, Rhinorrhea, Sinus Tenderness, Excessive drooling Neck: positive: Trachea midline, Supple. negative: Tender, Lymphadenopathy (R), Lymphadenopathy (L), Tender lateral, Tender midline Respiratory/Chest: positive: Lungs Clear, Normal Breath Sounds. negative: Chest Tender, Respiratory Distress, Accessory Muscle Use, Crackles, Rales, Rhonchi, Stridor, Wheezing Cardiovascular: positive: Regular Rhythm, Regular Rate, S1, S2. negative: Sy stolic Murmur Gastrointestinal/Abdominal: positive: Normal Bowel Sounds, Flat, Soft. negative: Tender, Distended, Guarding, Rebound Lymphatic: negative: Adenopathy Musculoskeletal: positive: Normal Inspection. negative: CVA Tenderness, Vertebral Tenderness Extremity: positive: Normal Capillary Refill, Normal Inspection, Normal Range of Motion. negative: Tender Integumentary: positive: Normal Color, Dry, Warm. 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 negative: EOM Palsy, Facial Droop, Sensory Deficit Medical Decision Making - Medical Decision Making 70 yo M with a past medical history of HLD, HTN, COPD (currently not on home O2), atrial fibrillation (on eliquis, however non compliant with medication for 2 days), and ETOH abuse (last drink of 3-4 ounces of vodka prior to presentation) presents to the emergency department with continuation of complaints that he had in an earlier presentation approximately 12 hours ago. Initial vitals: Initial Vital Signs Temp Pulse Resp BP Pulse Ox 97.7 F 96 H 18 172/89 H 97 06/28/20 05:21 06/28/20 05:21 06/28/20 05:21 06/28/20 05:21 06/28/20 05:21 Work up: 06/28/20 06:19 Patient has normal labs from the previous presentation which occurred at 4pm from the previous day. The patient has no current symptomatic complaints and states he feels back to baseline. will re-assess for sobriety. Patient has achieved sobriety and is cleared for discharge. detox was offered and refused by the patient. he states he will follow up with his primary medical doctor within 1 week after discharge. Discharge - Discharge Information Problems reviewed: Yes Clinical Impression/Diagnosis: Alcohol intoxication Condition: Good Disposition: HOME - Admission No - Follow up/Referral - Patient Discharge Instructions Patient Printed Discharge Instructions: DI for Alcohol Use Disorder Additional Instructions: You were seen in the emergency department for the evaluation of your alcohol intoxication. Your weakness is likely secondary to alcohol intoxication. Please return to the emergency department if you have worsening symptoms or new concerning symptoms. You need to stop drinking and enter a detoxification program and rehabilitation. Thank you. - Post Discharge Activity
--- NOTE | 2020-06-28 05:54 | PDOC ---
Attending Attestation - Resident Resident Name: Filemon Liu - ED Attending Attestation I have performed the following: I have examined & evaluated the patient, The case was reviewed & discussed with the resident, I agree w/resident's findings & plan, Exceptions are as noted - HPI HPI: 06/28/20 05:48 70 yo M h/o HTN, HLD, COPD not on home O2, afib and etoh abuse p/w generalized weakness. Denies fever, cough, CP SOB n/v/d and abdominal pain. Patient seen for same complaints ~13 hours ago. Labs largely unremarkable and cxr negative for infiltrate. Patient left the ED prior to receiving his discharge papers. Patient returns now due to persistence of complaints. Of note, patient drank etoh prior to arrival. - Physicial Exam PE: 06/28/20 05:51 General: non-toxic appearing, +AOB Chest: CTAB, good air entry CVS: + s1 s2, RRR Neuro: Aox3, sensation intact to light touch, strength preserved, no focal deficits - Medical Decision Making 06/28/20 05:52 70 yo M p/w generalized weakness in the setting of etoh use, recent labs largely unremarkable, suspect symptoms 2/2 etoh use. No focal deficits or infectious complaints. Plan: -monitor in ED and reassess when more sober This clinical encounter is taking place during a federal and state health care emergency attributable to the novel Jett Virus pandemic. The [place] of the Department of Health and Human Services has declared, pursuant to the Public Health Service Act 319F-3 (42 U.S[place]C. 247d-6d), that a covered persons activities related to medical countermeasures against COVID-19 will be immune from liability under Federal and State law. Pt. ambulatory with steady gait. No new complaints. Well appearing. Will d/c with return precautions, recommend PMD f/u and alcohol abstinence. Discharge - Discharge Information Problems reviewed: Yes Clinical Impression/Diagnosis: Alcohol intoxication Condition: Good Disposition: HOME - Follow up/Referral - Patient Discharge Instructions Patient Printed Discharge Instructions: DI for Alcohol Use Disorder Additional Instructions: You were seen in the emergency department for the evaluation of your alcohol intoxication. Your weakness is likely secondary to alcohol intoxication. Please return to the emergency department if you have worsening symptoms or new concerning symptoms. You need to stop drinking and enter a detoxification program and rehabilitation. Thank you. - Post Discharge Activity
[2020-06-28 07:17] VITALS: BP 169/108; PULSE 92
== END 2020-06-28 07:20 | disposition home or self-care (01) ==
LOC: JER 05:18
DX: F10.129 Alcohol abuse with intoxication, unspecified (principal)
CPT/HCPCS: 99281-25

== ENCOUNTER 2020-07-01 00:47 | Emergency (ER) | payer OTHER ==
[2020-07-01 01:41] VITALS: BP 151/107; PULSE 78; TEMP 98; BMI 20.7
--- OUTSIDE RECORDS SUMMARY | 2020-07-01 01:49 | XMS ---
:1950 [facility] Team Providers Name Role Phone ED STAFF PHYSICIAN, AMARA Unavailable Unavailable RADHA Joaquin Unavailable Unavailable ED STAFF PHYSICIAN Unavailable Unavailable ED STAFF PHYSICIAN, STAFF Unavailable Unavailable MARCELLE MARCO, MARCO Unavailable Unavailable ED STAFF PHYSICIAN Unavailable Unavailable SAHRA Aguiar Unavailable Unavailable ED STAFF PHYSICIANSIOMARA Unavailable Unavailable KEON JESUS Unavailable Unavailable ED STAFF PHYSICIAN Unavailable Unavailable AIDAN Joaquin Unavailable Unavailable Marcellenaomy GARY Marco Unavailable Unavailable MarcelleMarco moralez MD Unavailable Unavailable JOSE E Unavailable Unavailable TEQUILA NARVAEZ Unavailable Unavailable ED STAFF PHYSICIAN Unavailable Unavailable Re-disclosure Warning The records that [...] is protected by Article 27-F of the [place] Public Health law. If you continue you may haveaccess to information: Regarding HIV / AIDS; Provided by facilities licensed or operated by the [facility] Office of Mental Health; or Provided by the [facility] Office for People With Developmental Disabilities. If such information is present, then the following [facility] mandated warning applies: This information has been [...] is NOT sufficient authorization for further disclosure. Encounters Encounter Providers Location Date Indications Data Source(s ) Emergency Attender: AMARA ED H 06/30/2020 Krystina Dixon STAFF 10:59:00 AM Medical Nancy teresa PHYSICIANAttender: EDT - STAFF ED STAFF 06/30/2020 PHYSICIANAdmitter: 05:42:00 PM HAWARDEN ED STAFF EDT PHYSICIANReferrer: ZUNASSIGNED Patient discharged. (TEL) [address] 06/02/2020 12:00:00 eCW1 ([facility] SNYDER AM EDT [facility]) Outpatient Attender: MARCO H 05/25/2020 12:00:00 [facility] IBANEZ [facility] ARNABAdmitter: MARCO IBANEZ MARCO Attender: Marco [facility] [employer] 05/25/2020 12:00:00 NEXTGEN ([facility] Marc[facility] GARY PM EDT - 05/25/2020 [facility] 12:00:00 PM EDT Center) Emergency Attender: STAFF ED H 05/01/2020 09:21:00 [facility] STAFF PHYSICIAN PM EDT - 05/02/2020 [facility] Center 07:50:00 AM EDT Patient discharged. Emergency Attender: ED STAFF H 05/01/2020 03:28:00 AM [facility] PHYSICIANAttender: STAFF ED EDT - 05/01/2020 [facility] STAFF PHYSICIANAdmitter: ED 05:36:00 AM EDT STAFF PHYSICIAN Patient discharged. Emergency Attender: ED STAFF H 04/30/2020 07:05:00 PM [facility] PHYSICIANAttender: STAFF ED EDT - 04/30/2020 [facility] STAFF PHYSICIANAdmitter: ED 11:21:00 PM EDT STAFF PHYSICIAN Patient discharged. Emergency Attender: TEQUILA Yu 03/30/2020 07:35 :00 PM [facility]FF ED STAFF EDT - 03/30/2020 [facility] PHYSICIANAdmitter: TEQUILA 08:50:00 PM EDT MADDI Mace Patient discharged. Emergency Attender: TEQUILA Yu 03/29/2020 04:28 :00 PM [facility] CAttender: RADHA MILLERO EDT - 03/29/2020 [facility] KAttender: STAFF ED STAFF 08:45:00 PM EDT PHYSICIANAdmitter: TEQUILA Mace Patient discharged. [address] 03/27/2020 eCW1 (S aint Office [facility] 12:00:00 AM EDT [facility]) Emergency Attender: TEQUILA Yu 03/09/2020 [facility] MADDI MANDEL 04:23:00 PM EDT - [facility] CAttender: STAFF 03/09/2020 ED STAFF 10:49:00 PM EDT PHYSICIANAdmitter : TEQUILA Mace Patient discharged. Emergency Attender: ED STAFF H 02/20/2020 08:56:00 PM [facility] PHYSICIANAttender: ED STAFF EDT - 02/20/2020 [facility] PHYSICIANAttender: STAFF ED 10:50:00 PM EDT STAFF PHYSICIANAdmitter: ED STAFF PHYSICIANReferrer: STAFF ED STAFF PHYSICIAN Patient discharged. Emergency Attender: TEQUILA Yu 02/08/2020 05:07 :00 PM [facility] AMARA ED STAFF EDT - 02/08/2020 [facility] PHYSICIANAttender: STAFF ED 06:02:00 PM EDT STAFF PHYSICIANAdmitter: TEQUILA Mace Patient discharged. Emergency Attender: ED STAFF H 02/06/2020 06:33:00 PM [facility] PHYSICIANAttender: STAFF ED EDT - 02/06/2020 [facility] STAFF PHYSICIANAdmitter: ED 11:16:00 PM EDT STAFF PHYSICIAN Patient discharged. Emergency Attender: TEQUILA Yu 02/01/2020 01:51 :00 PM [facility] CAttender: STAFF ED STAFF EDT - 02/01/2020 [facility] PHYSICIANAdmitter: TEQUILA 05:09:00 PM EDT MADDI Mace Patient discharged. Emergency Attender: AIDAN Yu 01/29/2020 01:19:00 PM [facility] Janae: STAFF ED STAFF EDT - 01/29/2020 [facility] PHYSICIANAdmitter: AIDAN 10:03:00 PM EDT MILTON Joaquin Patient discharged. Emergency Attender: RADHA Yu 01/24/2020 05:35:00 PM [facility] Alexdarin: STAFF ED STAFF EDT - 01/24/2020 [facility] PHYSICIANAdmitter: RADHA SWIFT 08:46:00 PM EDT K Patient discharged. Emergency Attender: SAHRA Yu 01/22/2020 10:03:00 PM [facility] STAFF ED STAFF EDT - 01/22/2020 [facility] PHYSICIANAdmitter: SAHRA 11:37:00 PM EDT SUSAN A Patient discharged. [address] 01/07/2020 eCW1 (S aint Office [facility] Street MP 12:00:00 AM EDT [facility]) [address] 01/06/2020 eCW1 (S aint Office [facility] Attender: AMARA Yu 01/03/2020 [facility] ED STAFF 06:01:00 AM EDT - [facility] PHYSICIANAttender 01/03/2020 : STAFF ED STAFF 11:18:00 AM EDT PHYSICIANAdmitter : AMARA ED STAFF PHYSICIAN Patient discharged. Emergency Attender: RADHA Yu 01/01/2020 07:56:00 AM [facility]: STAFF ED STAFF EDT - 01/01/2020 03:0 6:00 Center PHYSICIAN PM EDT Patient discharged. Emergency Attender: TEQUILA Yu 12/30/2019 12:09 :00 PM [facility]: STAFF ED STAFF EDT - 12/30/2019 [facility] PHYSICIANAdmitter: TEQUILA 10:59:00 PM EDT MADDI Mace Patient discharged. Emergency Attender: TEQUILA Yu 12/03/2019 01:29 :00 PM [facility] CAttendarin: RADHA SWIFT EDT - 12/03/2019 [facility] KAttender: STAFF ED STAFF 07:01:00 PM EDT PHYSICIANAdmitter: TEQUILA Mace Patient discharged. Emergency Attender: TEQUILA Yu 11/30/2019 05:59 :00 PM [facility] STAFF ED STAFF EDT - 11/30/2019 [facility] PHYSICIANAdmitter: TEQUILA 10:20:00 PM EDT MADDI Mace Patient discharged. [address] 11/25/2019 eCW1 (S aint Office [facility] 12:00:00 AM [facility]) Emergency Attender: TEQUILA Yu 11/04/2019 [facility] MADDI MANDEL 04:09:00 PM [facility] STAFF 11/04/2019 ED STAFF 07:26:00 PM EST PHYSICIANAdmitter : TEQUILA Mace Patient discharged. Emergency Attender: TEQUILA Yu 11/02/2019 03:12 :00 PM [facility] STAFF ED STAFF EST - 11/02/2019 [facility] PHYSICIANAdmitter: TEQUILA 06:35:00 PM EST MADDI Mace Patient discharged. Emergency Attender: AMARA ED STAFF 11/02/2019 09:16:00 AM [facility] PHYSICIANAttender: STAFF ED [facility] - 11/02/2019 [facility] STAFF PHYSICIANAdmitter: 11:12:00 AM EST HAWARDEN ED STAFF PHYSICIAN Patient discharged. Emergency Attender: AMARA ED STAFF 11/01/2019 03:26:00 PM [facility] PHYSICIANAttender: STAFF ED EST - 11/01/2019 [facility] STAFF PHYSICIANAdmitter: 04:59:00 PM EST HAWARDEN ED STAFF PHYSICIAN Patient discharged. Inpatient Attender: KEON HERBERT H-HAL5 11/01/2019 08:57:00 [facility] YAttender: STAFF ED STAFF AM [facility] - 11/01/2019 [facility] PHYSICIANAdmitter: KEON GONZALES 01:59:00 PM EST KEON YReferrer: KEON HERBERT Y Patient discharged. Emergency Attender: TEQUILA Yu 10/31/2019 02:52 :00 PM [facility] CAttender: STAFF ED STAFF EST - 10/31/2019 [facility] PHYSICIANAdmitter: TEQUILA 04:39:00 PM EST MADDI Mace Patient discharged. Emergency Attender: STAFF ED STAFF H 10/29/2019 10:51:00 PM [facility] PHYSICIAN EST - 10/30/2019 10:47:00 Center PM EST Patient discharged. Emergency Attender: ED STAFF H 10/29/2019 02:27:00 PM [facility] PHYSICIANAttender: STAFF ED EST - 10/29/2019 [facility] STAFF PHYSICIANAdmitter: ED 05:28:00 PM EST STAFF PHYSICIAN Patient discharged. [address] 09/24/2019 eCW1 (S aint Office [facility] Street [facility] 12:00:00 AM [facility]) Emergency Attender: AMARA Yu 09/06/2019 [facility] ED STAFF 05:21:00 PM [facility] - [facility] PHYSICIANAttender 09/06/2019 : STAFF ED STAFF 08:10:00 PM EST PHYSICIANAdmitter : HAWARDEN ED STAFF PHYSICIAN Patient discharged. Emergency Attender: ED STAFF H 09/03/2019 10:20:00 PM [facility] PHYSICIANAttender: STAFF ED EST - 09/04/2019 [facility] STAFF PHYSICIANAdmitter: ED 04:00:00 PM EST STAFF PHYSICIAN Patient discharged. Inpatient Attender: KEON HERBERT H-HAL5 08/30/2019 06:16:00 [facility] YAttender: STAFF ED STAFF PM EST - 08/31/2019 [facility] PHYSICIANAdmitter: KEON GONZALES 10:35:00 AM EST KEON YReferrer: KEON HERBERT Y Patient discharged. Emergency Attender: TEQUILA MANDEL H 08/29/2019 04:21 :00 PM [facility] CAttender: STAFF ED STAFF EST - 08/29/2019 [facility] PHYSICIANAdmitter: TEQUILA 09:56:00 PM EST MADDI Mace Patient discharged. Emergency Attender: SIOMARA ED STAFF H 08/28/2019 12:52:00 PM [facility] PHYSICIANAttender: STAFF ED EST - 08/29/2019 [facility] STAFF PHYSICIANAdmitter: SIOMARA 12:01:00 AM EST ED STAFF PHYSICIAN Patient discharged. Emergency Attender: STAFF ED STAFF H 08/06/2019 01:17:00 AM [facility] PHYSICIAN EST - 08/06/2019 03:36:00 Center AM EST Patient discharged. [address] 07/26/2019 12:00:00 AM eCW1 ([facility] Office [facility] EST Medical Pract ice PC) Emergency H 06/26/2019 06:50:00 AM Sa momin Destiny EDT - 06/26/2019 Medical Center 09:44:00 AM EDT Patient discharged. Insurance Providers Payer name Policy type Policy ID Covered Covered green party's Policy P angel / Coverage green party ID relationship to [employer] type rodriguez MEDICARE [id number] SP [id number] M [id number] 01 [id number] J66 MEDICARE [id number] SP [id number] J66 [facility] [id number] SP [id number] PLANS HIP MEDICARE [id number] SP [id number] VIP VALUE [id number] SP [id number] OPTIONS-MEDICAR E M [id number] 01 [id number] J66 M [id number] 01 [id number] J66 M [id number] 01 [id number] 401 HIP O [id number] 401 M [id number] 01 [id number] O [id number] 401 HIP O [id number] 01 [id number] 401 HIP MCARE O [id number] 01 [id number] 401 [employer] O [id number] 01 [id number] MCARE HIP O [id number] 01 [id number] 401 W [id number] 01 [id number] 01 [id number] [employer] O [id number] 01 [id number] MEDICARE [employer] O [id number] 01 [id number] MEDICARE AFFINITY [id number] 01 [id number] A [employer] O [id number] 01 [id number] MCARE Problems, Conditions, and Diagnoses Code Display Name Description Problem Type Effective Data Dates Source(s) F10.10 81869344 Alcohol abuse Problem 11/25/2019 eCW1 ([facility] 12:00:00 AM [facility]) F10.10 [id number] Alcohol abuse Problem 11/25/2019 eCW1 ([facility] 12:00:00 AM [facility]) F17.200 Nicotine NICOTINE Diagnosis 05/25/2020 [facility] dependence, DEPENDENCE, 12:00:00 PM Medical unspecified, UNSPECIFIED, EDT Center uncomplicated UNCOMPLICATED F10.10 Alcohol abuse, ALCOHOL ABUSE, Diagnosis 05/25/2020 [facility] uncomplicated UNCOMPLICATED 12:00:00 PM Medical EDT Center Z53.20 Procedure and PROC/TRTMT NOT CRD Diagnosis 05/01/2020 Asa nt Destiny treatment not OUT BEC PT 09:21:00 PM Medical carried out because DECISION FOR UNSP EDT Center of patient's REASONS decision for unspecified reasons F10.20 Alcohol dependence, ALCOHOL Diagnosis 05/01/2020 [facility] uncomplicated DEPENDENCE, 09:21:00 PM Medical UNCOMPLICATED EDT Center F17.210 Nicotine NICOTINE Diagnosis 05/01/2020 Saint Gays dependence, DEPENDENCE, 03:28:00 AM Medical cigarettes, CIGARETTES, EDT Center uncomplicated UNCOMPLICATED I10 Essential (primary) ESSENTIAL Diagnosis 05/01/2020 Saint Gays hypertension (PRIMARY) 03:28:00 AM Medical HYPERTENSION EDT Center R53.1 Weakness WEAKNESS Diagnosis 05/01/2020 [facility] 03:28:00 AM Medical EDT Center G89.29 Other chronic pain OTHER CHRONIC PAIN Diagnosis 0 [facility] 07:35:00 PM Medical EDT Center M25.519 Pain in unspecified PAIN IN Diagnosis 03/30/2020 Saint Gays shoulder UNSPECIFIED 07:35:00 PM Medical SHOULDER EDT Center Y99.9 Unspecified UNSPECIFIED Diagnosis 03/29/2020 [place] external cause EXTERNAL CAUSE 04:28:00 PM Medic al status STATUS EDT Center Y92.[address] IN Diagnosis 03/29/2020 Krystina Dixon in apartment as the APARTMENT PLACE 04:28:[address] of occurrence EDT Cente r of the external cause Y93.9 Activity, ACTIVITY, Diagnosis 03/29/2020 [facility] Dest[facility] unspecified UNSPECIFIED 04:28:00 PM Medical EDT Center W01.0XXA Fall on same level FALL SAME LEV FROM Diagnosis 0 Saint Destiny from slipping, SLIP/TRIP W/O 04:28:00 PM Medica l tripping and STRIKE AGAINST EDT Center stumbling without OBJECT, INIT subsequent striking against object, initial encounter S83.91XA Sprain of SPRAIN OF Diagnosis 03/29/2020 Saint Dixon unspecified site of UNSPECIFIED SITE 04:28:00 P M Medical right knee, initial OF RIGHT KNEE, EDT C enter encounter INITIAL ENCOUNTER S83.92XA Sprain of SPRAIN OF Diagnosis 03/29/2020 Saint Gays unspecified site of UNSPECIFIED SITE 04:28:00 P M Medical left knee, initial OF LEFT KNEE, EDT Melanie ter encounter INITIAL ENCOUNTER F10.129 Alcohol abuse with ALCOHOL ABUSE WITH Diagnosis 0 Saint Dixon intoxication, INTOXICATION, 04:28:00 PM Medical unspecified UNSPECIFIED EDT Center R40.2410 [place] coma scale JEZ COMA SCALE Diagnosis 0 Saint Dixon score 13-15, SCORE 13-15, 04:23:00 PM Medical unspecified time UNSPECIFIED TIME EDT Ce nter Z04.89 ENCOUNTER FOR ENCOUNTER FOR Diagnosis 02/08/2020 Saint Radha combs EXAMINATION AND EXAMINATION AND 05:07:00 PM Med ical OBSERVATION FOR OTH OBSERVATION FOR EDT Center REASONS OTH REASONS M62.81 Muscle weakness MUSCLE WEAKNESS Diagnosis 02/06/2020 Krystina Dxion (generalized) (GENERALIZED) 06:33:00 PM Medical EDT Center E87.6 Hypokalemia HYPOKALEMIA Diagnosis 01/29/2020 Saint Gay s 01:19:00 PM Medical EDT Center R26.2 Difficulty in DIFFICULTY IN Diagnosis 01/29/2020 Saint Radha combs walking, not WALKING, NOT 01:19:00 PM Medical elsewhere ELSEWHERE EDT Center classified CLASSIFIED H61.21 Impacted cerumen, IMPACTED CERUMEN, Diagnosis 01/22/2020 [facility] Dixon right ear RIGHT EAR 10:03:00 PM Medical EDT Center H91.90 Unspecified hearing UNSPECIFIED Diagnosis 01/22/2020 Krystina Dixon loss, unspecified HEARING LOSS, 10:03:00 PM Med ical ear UNSPECIFIED EAR EDT Center Z72.0 Tobacco use TOBACCO USE Diagnosis 01/03/2020 Saint Gay s 06:01:00 AM Medical EDT Center Y90.8 Blood alcohol level BLOOD ALCOHOL Diagnosis 01/03/2020 Sa merrill Dixon of 240 mg/100 ml or LEVEL OF 240 06:01:00 AM Me dical more MG/100 ML OR MORE EDT Center R06.00 Dyspnea, DYSPNEA, Diagnosis 01/03/2020 Saint Dixon unspecified UNSPECIFIED 06:01:00 AM Medical EDT Center R06.02 Shortness of breath SHORTNESS OF Diagnosis 01/03/2020 Asa nt Destiny BREATH 06:01:00 AM Medical EDT Center Z00.8 Encounter for other ENCOUNTER FOR Diagnosis 01/01/2020 Sa merrill Dixon general examination OTHER GENERAL 07:56:00 AM edical EXAMINATION EDT Center F10.229 Alcohol dependence ALCOHOL DEPENDENCE Diagnosis 0 [facility] Dixon with intoxication, WITH INTOXICATION, 12:09:00 PM Medical unspecified UNSPECIFIED EDT Center M79.661 Pain in right lower PAIN IN RIGHT Diagnosis 12/03/2019 Sa merrill Dixon leg LOWER LEG 01:29:00 PM Medical EDT [...] Chronic systolic CHRONIC SYSTOLIC Diagnosis 11/01/2019 Sa merrill Dixon (congestive) heart (CONGESTIVE) HEART 08:57:00 AM Medical failure FAILURE EST Center I48.20 CHRONIC ATRIAL CHRONIC ATRIAL Diagnosis 11/01/2019 Saint Dixon FIBRILLATION, FIBRILLATION, 08:57:00 AM Medical UNSPECIFIED UNSPECIFIED EST Center Z79.01 correction (current) CARE HOME Diagnosis 11/01/2019 Saint Dixon use of (CURRENT) USE OF 08:57:00 AM Medical anticoagulants ANTICOAGULANTS EST Center J45.909 Unspecified asthma, UNSPECIFIED Diagnosis 10/31/2019 Krystina Dixon uncomplicated ASTHMA, 02:52:00 PM Medical UNCOMPLICATED EST Center J44.9 Chronic obstructive CHRONIC Diagnosis 10/29/2019 Saint Dixon pulmonary disease, OBSTRUCTIVE 10:51:00 PM [facility] unspecified PULMONARY DISEASE, EST Cente r UNSPECIFIED R06.2 Wheezing WHEEZING Diagnosis 10/29/2019 Saint Gays 10:51:00 PM Medical [facility] Center Z53.21 Procedure and PROC/TRTMT NOT CRD Diagnosis 09/06/2019 Asa gould Destiny treatment not OUT D/T PT LV BEF 05:21:00 PM Med ical carried out due to SEEN BY [facility] patient leaving [facility] prior to being seen by health care provider E78.5 Hyperlipidemia, HYPERLIPIDEMIA, Diagnosis 08/31/2019 Krystina Dixon unspecified UNSPECIFIED 10:35:00 AM Medical [facility] Center Z86.73 Personal history of PRSNL HX [...] specified SPECIFIED 12:52:00 PM Medical EST Center Surgeries/Procedures Procedure Description Date Indications Data Source(s) ECG ROUTINE ECG 11/25/2019 eCW1 ([facility] W/LEAST 12 LDS W/I&R 12:00:00 AM EST [facility]) Results ID Date Data Source Urinalysis.[id number] 05/01/2020 04:55:00 AM EDT [facility] 0 Name Value Range Interpretation Description Data [...] by Test d">Urine Medical strip Specific Center [place] </content>1.02 5 <content styleCode="Jody lics"> (1.015-1.025 )</content> [...] )</content> Protein NEGATIVE <content Saint [Mass/volume] styleCode="Kirstin Dixon in Urine by d">Urine Medical Test strip Protein Center </content>30 MG/DL<content styleCode="Jody lics"> (NEGATIVE MG/DL)</conten t> Urobilinogen 0.2-1.0 <content Saint [Units/volume] styleCode="Kirstin Gays in Urine by d">Urine Medical Test strip Urobilinogen Center </content>0.2 MG/DL<content styleCode="Jody lics"> (0.2-1.0 MG/DL)</conten t> Nitrite NEGATIVE <content Saint [Presence] in styleCode="Kirstin Gays Urine by Test d">Urine Medical strip Nitrite Center </content>NEGA TIVE <content styleCode="Jody lics"> (NEGATIVE )</content> UNK 0-3 <content Saint styleCode="Kirstin Gays d">Urine Red Medical Blood Cell Center </content>0-3 [...] Data Source Liver 04/30/2020 08:15:00 PM EDT [facility] Profile.[id number] Name Value Range Interpretation Description Data Sup [...] s"> (3.5-5.0 G/DL)</content> ID Date Data Source HematologyRou.[id number] 04/30/2020 08:15:00 PM EDT Asa nt [facility] 0400 Name Value Range Interpretation Description [...] (< 1 %)</content> ID Date Data Source GFR(Creatinine).[id number] 04/30/2020 08:15:00 PM EDT [facility] 0-0400 Name Value Range Interpretation Code Description Data Loyda rce(s) Supporting Document(s ) UNK > 60 <content [facility] styleCode="Bold"> Medical Cent er EGFR </content>77 GFR<content styleCode="Italic s"> (> 60 GFR)</content> ID Date Data Source CHMROUTCATECCDA.[id number] 04/30/2020 08:15:00 PM EDT [facility] -0400 Name Value Range Interpretation Description Data Sup porting Code Source(s) Document(s ) UNK >= 1.0 <content [facility] styleCode="Bold Medical ">AG Ratio Center </content>1.1 <content styleCode="Ital ics"> (>= 1.0 )</content> Protein 6.3-8.2 Below low normal <content [place] [Mass/volum styleCode="Bold Medical e] in Serum ">Total Protein Center or Plasma </content>5.8 G/DL L<content styleCode="Ital ics"> (6.3-8.2 G/DL)</content> Lactate 0.7-2.0 <content [place] [Mass/volum styleCode="Bold Medical e] in Serum ">Lactic Acid Center or Plasma </content>1.6 MMOLL<content styleCode="Ital ics"> (0.7-2.0 MMOLL)</content > UNK 2.3-3.5 <content [facility] styleCode="Bold Medical ">Globulin Center </content>2.7 G/DL<content styleCode="Ital ics"> (2.3-3.5 G/DL)</content> ID Date Data Source [id number] 04/30/2020 08:15:00 PM EDT [facility] Name Value Range Interpretation Description [...] s"> (38-126 IU/L)</content> ID Date Data Source [id number] 03/31/2020 01:40:00 PM EDT [facility] Name Value Range Interpretation Description Data Sup porting Code Source(s) Document(s ) SARS [facility] coronavirus 2 RNA This lab was ordered by [facility] and reported by [facility]. ID Date Data Source [id number] 03/23/2020 05:05:00 AM EDT [facility] Name Value Range Interpretation Description Data Sup porting Code Source(s) Document(s ) SARS [facility] CORONAVIRUS 2 RNA This lab was ordered by [facility] and reported by [facility]. ID Date Data Source HematologyRou.[id number] 03/09/2020 05:25:00 PM EDT [facility] 0400 Name Value Range Interpretation Description Data [...] (< 1 %)</content> ID Date Data Source GFR(Creatinine).[id number] 03/09/2020 05:22:00 PM EDT [facility] 0-0400 Name Value Range Interpretation Code Description Data Loyda rce(s) Supporting Document(s ) UNK > 60 <content [facility] styleCode="Bold"> Medical Cent er EGFR </content>78 GFR<content styleCode="Italic s"> (> 60 GFR)</content> ID Date Data Source [facility].[id number] 03/09/2020 05:22:00 PM EDT [facility] Name Value Range Interpretation Description [...] (74-106 MG/DL)</conten t> ID Date Data Source [id number] 02/17/2020 04:50:00 PM EDT [facility] Name Value Range Interpretation Description Data Sup porting Code Source(s) Document(s ) SARS [facility] CORONAVIRUS 2 RNA This lab was ordered by [facility] and reported by [facility]. ID Date Data Source LIPID.[id number] 02/01/2020 02:33:00 PM EDT [facility] Name Value Range Interpretation Description Data Sup porting Code Source(s) Document(s ) Triglyceride < 150 Above high normal <content Saint [Mass/volume] in styleCode="[facility] Serum or Plasma d">Triglycerid Medical es Center </content>156 MG/DL H<content styleCode="Jody lics"> (< 150 MG/DL)</conten t> Cholesterol -<200 <content Saint [Mass/volume] in styleCode="[facility] Serum or Plasma d">Cholesterol Medical </content>128 Center MG/DL<content styleCode="Jody lics"> (-<200 MG/DL)</conten t> UNK < 100 <content Saint styleCode="Kirstin Destiny d">LDL-[facility] Center </content>35 MG/DL<content styleCode="Jody lics"> (< 100 MG/DL)</conten t> UNK > 60 <content Saint styleCode="Kirstin Destiny d">HDL- Medical Cholesterol Center </content>62 MG/DL<content styleCode="Jody lics"> (> 60 MG/DL)</conten t> ID Date Data Source HematologyRou.[id number] 02/01/2020 02:33:00 PM EDT [facility] 0400 Name Value Range Interpretation Description Data [...] ics"> (NORMAL )</content> ID Date Data Source GFR(Creatinine).[id number] 02/01/2020 02:33:00 PM EDT [facility] 0-0400 Name Value Range Interpretation Code Description Data Loyda rce(s) Supporting Document(s ) UNK > 60 <content [facility] styleCode="Bold"> Medical Cent er EGFR </content>96 GFR<content styleCode="Italic s"> (> 60 GFR)</content> ID Date Data Source Coagulation 02/01/2020 02:33:00 PM [facility] ical Center Rout.[id number] EDT Name Value Range Interpretation Description Data Sup porting Code Source(s) Document(s ) UNK 9.0-13.0 <content [facility] styleCode="Bold" Destiny >Protime Medical </content>11.7 Center SEC<content styleCode="Itali cs"> (9.0-13.0 SEC)</content> INR in 0.80-1.2 <content [facility] Platelet poor 0 styleCode="Bold" Destiny plasma by >INR Medical Coagulation </content>1.05 Center assay #<content styleCode="Itali cs"> (0.80-1.20 #)</content> aPTT in 25.1-36. <content [facility] Platelet poor 5 styleCode="Bold" Destiny plasma by >Partial Medical Coagulation Thromboplastin Center assay Time </content>30.1 SEC<content styleCode="Itali cs"> (25.1-36.5 SEC)</content> ID Date Data Source CardiacMarkers.[id number] 02/01/2020 02:33:00 PM EDT [facility] -0400 Name Value Range Interpretation Description Data Sup porting Code Source(s) Document(s ) Troponin < 0.034 <content [facility] I.cardiac styleCode="Bold Destiny [Mass/volume ">Troponin I Medical ] in Serum </content>< Center or Plasma 0.012 NG/ML<content styleCode="Ital ics"> (< 0.034 NG/ML)</content > ID Date Data Source [facility].[id number] 02/01/2020 02:33:00 PM EDT [facility] Name Value Range Interpretation Description [...] 9-20 Below low normal <content [facility] styleCode="Kirstin aGys d">BUN Medical </content>8 Center MG/DL L<content styleCode="Jody [...] (> 60 GFR)</content> ID Date Data Source [facility].[id number] 01/29/2020 07:37:00 PM EDT [facility] Name Value Range Interpretation Description Data Sup porting Code Source(s) Document(s ) Potassium 3.5-5.3 <content [facility] [Moles/volume styleCode="Kirstin Destiny ] in Serum or d">Potassium Medical Plasma </content>4.4 Center MEQ/L<content styleCode="Jody lics"> (3.5-5.3 MEQ/L)</conten t> ID Date Data Source BMP.[id number] 01/29/2020 07:12:00 PM EDT [facility] Name Value Range Interpretation Description Data Sup porting Code Source(s) Document(s ) Potassium <content [facility] [Moles/volume styleCode="Bold Medical ] in Serum or ">Potassium Center Plasma </content>Test not performed. MEQ/L (Reference Range: not available)
ID Date Data Source BMP.[id number] 01/29/2020 03:52:00 PM EDT [facility] Name Value Range Interpretation Description Data Sup porting Code Source(s) Document(s ) Potassium 3.5-5.3 Below lower panic <content [facility] [Moles/volume limits styleCode="Kirstin Destiny ] in Serum or d">Potassium Medical Plasma </content><con Center tent styleCode="Kirstin d">2.7 MEQ/L LL</content><c ontent styleCode="Jody lics"> (3.5-5.3 MEQ/L)</conten t> ID Date Data Source Liver 01/29/2020 02:20:00 PM EDT [facility] Profile.[id number] Name Value Range Interpretation Description Data Sup [...] s"> (0.0-0.3 MG/DL)</content> ID Date Data Source HematologyRou.[id number] 01/29/2020 02:20:00 PM EDT [facility] 0400 Name Value Range Interpretation Description Data Sup porting Code Source(s) Document(s ) Hemoglobin 13.5-17. Below low normal <content [facility] [Mass/volume] in 5 styleCode="Bold Destiny Blood ">Hemoglobin Medical </content>13.4 Center G/DL L<content styleCode="Ital ics"> (13.5-17.5 G/DL)</content> Erythrocytes 4.4-5.9 <content Saint [#/volume] in styleCode="Bold [facility] Blood by ">Red Blood Medical Automated count [...] (< 1 %)</content> ID Date Data Source GFR(Creatinine).[id number] 01/29/2020 02:20:00 PM EDT [facility] 0-0400 Name Value Range Interpretation Code Description Data Loyda rce(s) Supporting Document(s ) UNK > 60 <content [facility] styleCode="Bold"> Medical Cent er EGFR </content>71 GFR<content styleCode="Italic s"> (> 60 GFR)</content> ID Date Data Source CHMROUTINECCDA.[id number] 01/29/2020 02:20:00 PM EDT [facility] -0400 Name Value Range Interpretation Description Data Sup porting Code Source(s) Document(s ) Magnesium 1.6-2.3 <content [facility] [Mass/volume] styleCode="Kirstin Destiny in Serum or d">Magnesium Medical Plasma </content>1.7 Center MG/DL<content styleCode="Jody lics"> (1.6-2.3 MG/DL)</conten t> ID Date Data Source [facility].[id number] 01/29/2020 02:20:00 PM EDT [facility] Name Value Range Interpretation Description Data Sup porting Code Source(s) Document(s ) Sodium 137-145 <content [facility] [Moles/volume] in styleCode="Bold"> [facility] Serum or Plasma Sodium Medical </content>137 Center MEQ/L<content styleCode="Italic s"> (137-145 MEQ/L)</content> Potassium <content [facility] [Moles/volume] in styleCode="Bold"> [facility] Serum or Plasma Potassium Medical </content>Test Center not performed. MEQ/L (Reference Range: not available)
UNK 9-20 <content [facility] styleCode="Bold"> Destiny BUN </content>12 Medical MG/DL<content Center styleCode="Italic s"> (9-20 MG/DL)</content> Chloride 98-107 <content [facility] [Moles/volume] in styleCode="Bold"> [facility] Serum or Plasma Chloride Medical </content>99 Center [...] s"> (3.5-5.0 G/DL)</content> ID Date Data Source [id number] 01/26/2020 08:43:00 PM EDT [facility] Name Value Range Interpretation Description Data Sup porting Code Source(s) Document(s ) SARS [facility] CORONAVIRUS 2 RNA This lab was ordered by [facility] and reported by [facility]. ID Date Data Source Liver 11/30/2019 08:12:00 PM EDT [facility] Profile.[id number] Name Value Range Interpretation Description Data Sup [...] s"> (3.5-5.0 G/DL)</content> ID Date Data Source GFR(Creatinine).[id number] 11/30/2019 08:12:00 PM EDT [facility] 0-0400 Name Value Range Interpretation Code Description Data Loyda rce(s) Supporting Document(s ) UNK > 60 <content [facility] styleCode="Bold"> Medical Cent er EGFR </content>78 GFR<content styleCode="Italic s"> (> 60 GFR)</content> ID Date Data Source Coagulation 11/30/2019 08:12:00 PM [facility] ical Center Rout.[id number] EDT Name Value Range Interpretation Code Description Data Loyda rce(s) Supporting Document(s ) UNK < 500 Above upper panic <content [place] [facility] limits styleCode="Bold"> Medical Cent er D-Dimer </content><conten t styleCode="Bold"> 1607 ngFEU HH</content><cont ent styleCode="Italic s"> (< 500 ngFEU)</content> ID Date Data Source CHMROUTINECCDA.[id number] 11/30/2019 08:12:00 PM EDT [facility] -0400 Name Value Range Interpretation Description Data Sup porting Code Source(s) Document(s ) Lipase 23-300 <content [facility] [Enzymatic styleCode="Bold Medical activity/vo ">Lipase Center lume] in </content>121 Serum or IU/L<content Plasma styleCode="Ital ics"> (23-300 IU/L)</content> UNK 30-110 <content [facility] styleCode="Bold Medical ">Amylase Center </content>90 IU/L<content styleCode="Ital ics"> (30-110 IU/L)</content> ID Date Data Source [facility].[id number] 11/30/2019 08:12:00 PM EDT [facility] Name Value Range Interpretation Description Data Sup porting Code Source(s) Document(s ) Sodium 137-145 <content [facility] [Moles/volume] in styleCode="Bold"> [facility] Serum or Plasma Sodium Medical </content>141 Center MEQ/L<content styleCode="Italic s"> (137-145 MEQ/L)</content> Potassium 3.5-5.3 <content [facility] [Moles/volume] in styleCode="Bold"> [facility] Serum or Plasma Potassium Medical </content>3.8 Center MEQ/L<content styleCode="Italic s"> (3.5-5.3 MEQ/L)</content> Carbon dioxide, 22-30 <content [facility] total styleCode="Bold"> Destiny [Moles/volume] in Carbon Dioxide Medical Serum or Plasma </content>30 Center MEQ/L<content styleCode="Italic s"> (22-30 MEQ/L)</content> Chloride 98-107 <content [facility] [Moles/volume] in styleCode="Bold"> [facility] Serum or Plasma Chloride Medical [...] s"> (0.2-1.3 MG/DL)</content> ID Date Data Source Microbiology.[id number] 11/30/2019 07:20:00 PM EDT [facility] 400 Name Value Range Interpretation Code Description Data Loyda rce(s) Supporting Document(s ) UNK <item><content [facility] styleCode="Bold"> Medical [facility] er Culture Status </content>
<t able><tbody><tr>< td>Specimen Number:</td><td>[id number]</td></tr ><tr><td>Sample Collection Date/Time: </td><td> 0 7:20 PM</td></tr><tr>< td>Specimen Source:</td><td>B LOOD</td></tr><tr ><td>Culture Report:</td><td>N O GROWTH 5 DAYS </td></tr><tr><td >Culture Status:</td><td>F inal </td></tr><tr><td >Blood Culture:</td><td> Collection Plate Date: 11/30/2019 19:28 </td></tr></tbody ></table></item> UNK <item><content [facility] styleCode="Bold"> Medical Cent er Culture Report </content>
<t able><tbody><tr>< td>Specimen Number:</td><td>[id number]</td></tr ><tr><td>Sample Collection Date/Time: </td><td> 0 7:20 PM</td></tr><tr>< td>Specimen Source:</td><td>B LOOD</td></tr><tr ><td>Blood Culture:</td><td> Collection Plate Date: 11/30/2019 19:28 </td></tr><tr><td >Culture Status:</td><td>F inal </td></tr><tr><td >Culture Report:</td><td>N O GROWTH 5 DAYS </td></tr></tbody ></table></item> ID Date Data Source Microbiology.[id number] 11/30/2019 07:05:00 PM EDT [facility] 400 Name Value Range Interpretation Code Description Data Loyda rce(s) Supporting Document(s ) UNK <item><content [facility] styleCode="Bold"> Medical [facility] Culture Status </content>
<t able><tbody><tr>< td>Specimen Number:</td><td>[id number]</td></tr ><tr><td>Sample Collection Date/Time: </td><td> 0 7:05 PM</td></tr><tr>< td>Specimen Source:</td><td>B LOOD</td></tr><tr ><td>Culture Report:</td><td>N O GROWTH 5 DAYS </td></tr><tr><td >Culture Status:</td><td>F inal </td></tr><tr><td >Blood Culture:</td><td> Collection Plate Date: 11/30/2019 19:20 </td></tr></tbody ></table></item> UNK <item><content [facility] styleCode="Bold"> Medical [facility] Culture Report </content>
<t able><tbody><tr>< td>Specimen Number:</td><td>[id number]</td></tr ><tr><td>Sample Collection Date/Time: </td><td> 0 7:05 PM</td></tr><tr>< td>Specimen Source:</td><td>B LOOD</td></tr><tr ><td>Blood Culture:</td><td> Collection Plate Date: 11/30/2019 19:20 </td></tr><tr><td >Culture Status:</td><td>F inal </td></tr><tr><td >Culture Report:</td><td>N O GROWTH 5 DAYS </td></tr></tbody ></table></item> ID Date Data Source Liver 11/30/2019 07:05:00 PM EDT [facility] Profile.[id number] Name Value Range Interpretation Description Data Sup [...] Range: not available)
ID Date Data Source HematologyRou.[id number] 11/30/2019 07:05:00 PM EDT [facility] 0400 Name Value Range Interpretation Description Data [...] (0-0.1 KCUMM)</content > ID Date Data Source GFR(Creatinine).[id number] 11/30/2019 07:05:00 PM EDT [facility] 0-0400 Name Value Range Interpretation Code Description Data Loyda rce(s) Supporting Document(s ) UNK <content [facility] styleCode="Bold"> Medical Cent er EGFR </content>Test not performed. GFR (Reference Range: not available)
ID Date Data Source Coagulation 11/30/2019 07:05:00 PM [facility] ical Center Rout.[id number] EDT Name Value Range Interpretation Description Data [...] cs"> (25.1-36.5 SEC)</content> ID Date Data Source CHMROUTINECCDA.[id number] 11/30/2019 07:05:00 PM EDT [facility] -0400 Name Value Range Interpretation Description Data Sup porting Code Source(s) Document(s ) UNK <content [place] styleCode="Bold Medical ">Amylase Center </content>Test not performed. IU/L (Reference Range: not available)
Lactate 0.7-2.0 Above upper panic <content [place] [facility] [Mass/volum limits styleCode="Bold Medical e] in Serum ">Lactic Acid Center or Plasma </content><cont ent styleCode="Bold ">2.7 MMOLL HH</content><co ntent styleCode="Ital ics"> (0.7-2.0 MMOLL)</content > Lipase <content [facility] [Enzymatic styleCode="Bold Medical activity/vo ">Lipase Center lume] in </content>Test Serum or not performed. Plasma IU/L (Reference Range: not available)
ID Date Data Source CardiacMarkers.[id number] 11/30/2019 07:05:00 PM EDT [facility] -0400 Name Value Range Interpretation Description Data Sup porting Code Source(s) Document(s ) Creatine <content [place] kinase styleCode="Bold Medical [Enzymatic ">CK Center activity/vol </content>Test ume] in not performed. Serum or IU/L Plasma (Reference Range: not available)
Troponin <content [facility] I.cardiac styleCode="Bold Medical [Mass/volume ">Troponin I Center ] in Serum </content>Test or Plasma not performed. NG/ML (Reference Range: not available)
ID Date Data Source [facility].[id number] 11/30/2019 07:05:00 PM EDT [facility] Name Value Range Interpretation Description [...] Data Source Liver 11/01/2019 09:45:00 AM EST [facility] Profile.[id number] Name Value Range Interpretation Description Data Sup [...] s"> (0.0-0.3 MG/DL)</content> ID Date Data Source HematologyRou.[id number] 11/01/2019 09:45:00 AM JEAN [facility] 0500 Name Value Range Interpretation Description Data [...] ics"> (0 /100)</content> ID Date Data Source GFR(Creatinine).[id number] 11/01/2019 09:45:00 AM JEAN [facility] 0-0500 Name Value Range Interpretation Code Description Data Loyda rce(s) Supporting Document(s ) UNK > 60 Below low normal <content [facility] styleCode="Bold"> Medical Cent er EGFR </content>59 GFR L<content styleCode="Italic s"> (> 60 GFR)</content> ID Date Data Source BMP.[id number] 11/01/2019 09:45:00 AM EST [facility] Name Value Range Interpretation Description Data Sup porting Code Source(s) Document(s ) Carbon dioxide, 22-30 <content [facility] total styleCode="Bold"> Destiny [Moles/volume] in Carbon Dioxide Medical Serum or Plasma </content>30 Center MEQ/L<content styleCode="Italic s"> (22-30 MEQ/L)</content> Chloride 98-107 Above high <content [facility] [Moles/volume] in normal styleCode="Bold"> Roni phs Serum or Plasma Chloride Medical </content>108 Center MEQ/L H<content styleCode="Italic s"> (98-107 MEQ/L)</content> Sodium 137-145 <content [facility] [Moles/volume] in styleCode="Bold"> Roni phs Serum or Plasma Sodium Medical </content>145 Center MEQ/L<content styleCode="Italic s"> (137-145 MEQ/L)</content> Potassium 3.5-5.3 <content [facility] [Moles/volume] in styleCode="Bold"> Roni phs Serum or Plasma Potassium Medical </content>3.8 Center [...] s"> (3.5-5.0 G/DL)</content> ID Date Data Source Urinalysis.[id number] 08/31/2019 12:00:00 AM JEAN [facility] 0 Name Value Range Interpretation Description Data Sup porting Code Source(s) Document(s ) UNK CLEAR <content [facility] styleCode="[facility] d">Urine Medical Clarity Center </content>MACARIO R <content [...] by Test d">Urine Medical strip Specific Center [place] </content><= 1.005 L<content styleCode="Jody lics"> (1.015-1.025 )</content> Hemoglobin NEGATIVE <content [facility] [Presence] in styleCode="Kirstin Dixon Urine by Test d">Urine Blood Medical strip </content>NEGA Center TIVE <content styleCode="Jody lics"> (NEGATIVE )</content> pH of Urine by 4.5-8.0 <content [facility] Test strip styleCode="Kirstin [place] d">Urine pH Medical </content>6.0 Center <content styleCode="Jody lics"> (4.5-8.0 )</content> Protein NEGATIVE <content [facility] [Mass/volume] styleCode="Kirstin Dixon in Urine by d">Urine Medical Test strip Protein Center </content>NEGA TIVE MG/DL<content styleCode="Jody lics"> (NEGATIVE MG/DL)</conten t> Urobilinogen 0.2-1.0 <content [facility] [Units/volume] styleCode="Kirstin Dixon [...] lics"> (NEGATIVE )</content> ID Date Data Source CHMROUTINECCDA.[id number] 08/31/2019 12:00:00 AM JEAN [facility] -0500 Name Value Range Interpretation Description Data Sup porting Code Source(s) Document(s ) Cannabinoids <content [facility] [Presence] in styleCode="Kirstin Dixon Urine by Screen d">Cannabinoid Medical method >50 ng/mL s Center </content>NEGA TIVE NG/ML (Reference Range: not available)<br/ > ID Date Data Source Liver 08/30/2019 06:59:00 PM EST [facility] Profile.[id number] Name Value Range Interpretation Description Data Sup [...] s"> (3.5-5.0 G/DL)</content> ID Date Data Source HematologyRou.[id number] 08/30/2019 06:59:00 PM EST [facility] 0500 Name Value Range Interpretation Description Data Sup porting Code Source(s) Document(s ) Leukocytes 4.4-11.0 <content [facility] [#/volume] in styleCode="Bold Destiny Blood by ">White Blood Medical Automated count Cell Count Center </content>10.88 KCUMM<content styleCode="Ital ics"> (4.4-11.0 KCUMM)</content > Hematocrit 41.0-53. <content [facility] [Volume 0 styleCode="Bold Destiny Fraction] of ">Hematocrit Medical Blood by </content>41.4 [...] ics"> (0 /100)</content> ID Date Data Source GFR(Creatinine).[id number] 08/30/2019 06:59:00 PM EST [facility] 0-0500 Name Value Range Interpretation Code Description Data Loyda rce(s) Supporting Document(s ) UNK > 60 <content [facility] styleCode="Bold"> Medical Cent er EGFR </content>86 GFR<content styleCode="Italic s"> (> 60 GFR)</content> ID Date Data Source BMP.[id number] 08/30/2019 06:59:00 PM EST [facility] Name Value Range Interpretation Description [...] 98-107 <content [facility] [Moles/volume] in styleCode="Bold"> [facility] Serum or Plasma Chloride Medical </content>105 Center MEQ/L<content styleCode="Italic s"> (98-107 MEQ/L)</content> Sodium 137-145 <content [facility] [Moles/volume] in styleCode="Bold"> [facility] Serum or Plasma Sodium Medical </content>143 Center [...] G/DL)</content> Alkaline 38-126 <content [facility] phosphatase styleCode="Bold"> [facility] [Enzymatic Alkaline Medical activity/volume] Phosphatase (ALP) Cente r in Serum or Plasma </content>64 IU/L<content styleCode="Italic s"> (38-126 IU/L)</content> Bilirubin.total 0.2-1.3 <content [facility] [Mass/volume] in styleCode="Bold"> Adi hs Serum or Plasma Bilirubin Total Medical </content>0.2 Center MG/DL<content styleCode="Italic s"> (0.2-1.3 MG/DL)</content> ID Date Data Source Coagulation 08/28/2019 02:20:00 PM [facility] Rout.[id number] EST Name Value Range Interpretation Description Data [...] cs"> (25.1-36.5 SEC)</content> ID Date Data Source [facility].[id number] 08/28/2019 02:20:00 PM [facility] -0500 Name Value Range Interpretation Description Data Sup porting Code Source(s) Document(s ) Natriuretic < 125 Above high normal <content [facility] peptide.B styleCode="Kirstin Destiny prohormone d">NT Pro BNP Medical N-Terminal </content>373 Center [Mass/volume] PG/ML in Serum or H<content Plasma styleCode="Jody lics"> (< 125 PG/ML)</conten t> ID Date Data Source CardiacMarkers.[id number] 08/28/2019 02:20:00 PM EST [facility] -0500 Name Value Range Interpretation Description Data Sup porting Code Source(s) Document(s ) Creatine 55-170 Below low normal <content [facility] kinase styleCode="Bold Destiny [Enzymatic ">CK Medical activity/vol </content>47 Center ume] in IU/L L<content Serum or styleCode="Ital Plasma ics"> (55-170 IU/L)</content> Troponin < 0.034 <content [facility] I.cardiac styleCode="Bold Destiny [Mass/volume ">Troponin I Medical ] in Serum </content>0.024 Center or Plasma NG/ML<content styleCode="Ital ics"> (< 0.034 NG/ML)</content > ID Date Data Source Liver 08/28/2019 02:20:00 PM EST [facility] Profile.[id number] Name Value Range Interpretation Description Data Sup [...] s"> (3.5-5.0 G/DL)</content> ID Date Data Source HematologyRou.[id number] 08/28/2019 02:20:00 PM JEAN [facility] 0500 Name Value Range Interpretation Description Data [...] ics"> (0 /100)</content> ID Date Data Source GFR(Creatinine).[id number] 08/28/2019 02:20:00 PM EST [facility] 0-0500 Name Value Range Interpretation Code Description Data Loyda rce(s) Supporting Document(s ) UNK > 60 <content [facility] styleCode="Bold"> Medical Cent er EGFR </content>96 GFR<content styleCode="Italic s"> (> 60 GFR)</content> ID Date Data Source [facility].[id number] 08/28/2019 02:20:00 PM EST [facility] Name Value Range Interpretation Description Data Sup porting Code Source(s) Document(s ) Potassium 3.5-5.3 <content [facility] [Moles/volume] in styleCode="Bold"> Roni phs Serum or Plasma Potassium Medical </content>4.2 Center MEQ/L<content styleCode="Italic s"> (3.5-5.3 MEQ/L)</content> Sodium 137-145 Above high <content [facility] [Moles/volume] in normal styleCode="Bold"> Roni phs Serum or Plasma Sodium Medical </content>146 Center MEQ/L H<content styleCode="Italic s"> (137-145 MEQ/L)</content> Carbon dioxide, 22-30 <content [facility] total styleCode="Bold"> [place] [Moles/volume] in Carbon Dioxide Medical Serum or Plasma </content>25 Center MEQ/L<content styleCode="Italic s"> (22-30 MEQ/L)</content> Chloride 98-107 Above high <content [facility] [Moles/volume] in normal styleCode="Bold"> Roni phs Serum or Plasma Chloride Medical </content>112 Center [...] MG/DL)</content> UNK > 60 <content Saint styleCode="Bold"> [facility] EGFR </content>96 Medical GFR<content Center styleCode="Italic [...] G/DL)</content> Alkaline 38-126 <content [facility] phosphatase styleCode="Bold"> [facility] [Enzymatic Alkaline Medical activity/volume] Phosphatase (ALP) Cente r in Serum or Plasma </content>69 IU/L<content styleCode="Italic s"> (38-126 IU/L)</content> Bilirubin.total 0.2-1.3 Below low <content [facility] [Mass/volume] in normal styleCode="Bold"> Adi hs Serum or Plasma Bilirubin Total Medical </content>< 0.2 Center MG/DL L<content styleCode="Italic s"> (0.2-1.3 MG/DL)</content> ID Date Data Source HematologyRou.[id number] 08/06/2019 02:30:00 AM EST [facility] 0500 Name Value Range Interpretation Description Data [...] low normal <content [facility] [Volume 0 styleCode="Bold [facility] Fraction] of ">Hematocrit Medical Blood by </content>37.1 [...] (0.0 KCUMM)</content > ID Date Data Source GFR(Creatinine).[id number] 08/06/2019 02:30:00 AM JEAN [facility] 0-0500 Name Value Range Interpretation Code Description Data Loyda rce(s) Supporting Document(s ) UNK > 60 <content [facility] styleCode="Bold"> Medical Cent er EGFR </content>96 GFR<content styleCode="Italic s"> (> 60 GFR)</content> ID Date Data Source BMP.[id number] 08/06/2019 02:30:00 AM EST [facility] Name Value Range Interpretation Description [...] Center MG/DL<content styleCode="Jody lics"> (8.4-10.2 MG/DL)</conten t> Procedure Social History Code Duration [...] Current Smoker completed Current Smoker [email or web address] ( [facility] 12:00:00 AM EST [facility]) Smoking 11/04/2019 Daily Smoker completed Daily [...] phs 07:02:00 AM EDT Medical C enter Vital Signs ID Date Data Source UNK Name Value Range Interpretation Code Description Data Source(s) Oxygen saturation 96 % 96 % [facility] [facility] in [facility] by Pulse oximetry Heart rate 71 /min 71 /min [facility] Diastolic blood 110 mm[Hg] 110 mm[Hg] [facility] Systolic blood 185 mm[Hg] 185 mm[Hg] [facility] Body temperature 36.657132 36.164338 [facility] Respiratory rate 19 /min 19 /min [facility] Oxygen saturation 98 % 98 % [facility] [place] in [facility] by Pulse oximetry Heart rate 111 /min 111 /min [facility] Diastolic blood 107 mm[Hg] 107 mm[Hg] [facility] pressure [facility] Center Systolic blood 141 mm[Hg] 141 mm[Hg] [facility] pressure [facility] Center Diastolic blood 97 mm[Hg] 97 mm[Hg] [facility] pressure [facility] Center Systolic blood 154 mm[Hg] 154 mm[Hg] [facility] pressure [facility] Center Diastolic blood 91 mm[Hg] 91 mm[Hg] [facility] pressure [facility] Center Systolic blood 158 mm[Hg] 158 mm[Hg] [facility] pressure [facility] Center Diastolic blood 95 mm[Hg] 95 mm[Hg] [facility] pressure [facility] Center Systolic blood 162 mm[Hg] 162 mm[Hg] [facility] pressure [facility] Center Systolic blood 150 mm[Hg] 150 mm[Hg] [facility] Body temperature 36.087998 36.801066 [facility] Respiratory rate 16 /min 16 /min [facility] Oxygen saturation 96 % 96 % [facility] in [facility] blood [facility] by Pulse oximetry Heart rate 90 /min 90 /min [facility] Diastolic blood 89 mm[Hg] 89 mm[Hg] [facility] Body weight 77.005060 kg 77.151121 kg [facility] Body temperature 36.706622 36.861160 [facility] Respiratory rate 18 /min 18 /min [facility] Oxygen saturation 96 % 96 % [facility] in [facility] blood [facility] by Pulse oximetry Heart rate 100 /min 100 /min [facility] Body height 167.782274 167.289688 cm [facility] Diastolic blood 92 mm[Hg] 92 mm[Hg] [facility] pressure [facility] Center Systolic blood 142 mm[Hg] 142 mm[Hg] [facility] Body mass index 27.4 kg/m2 27.4 kg/m2 [facility] (BMI) [Ratio] Medical [facility] ter Body temperature 36.070994 36.293001 [facility] Respiratory rate 18 /min 18 /min [facility] Oxygen saturation 98 % 98 % [facility] in [facility] blood [facility] by Pulse oximetry Heart rate 78 /min 78 /min [facility] Diastolic blood 97 mm[Hg] 97 mm[Hg] [facility] pressure [facility] Center Systolic blood 128 mm[Hg] 128 mm[Hg] [facility] Body temperature 36.326253 36.662941 [facility] Respiratory rate 17 /min 17 /min [facility] Oxygen saturation 98 % 98 % [facility] in Arter[facility] blood [facility] Center by Pulse oximetry Heart rate 86 /min 86 /min [facility] Diastolic blood 81 mm[Hg] 81 mm[Hg] [facility] Systolic blood 130 mm[Hg] 130 mm[Hg] [facility] Body temperature 36.213612 36.131036 [facility] Respiratory rate 19 /min 19 /min [facility] Oxygen saturation 97 % 97 % [facility] in [facility] blood [facility] Center by Pulse oximetry Heart rate 97 /min 97 /min [facility] Diastolic blood 89 mm[Hg] 89 mm[Hg] [facility] Systolic blood 132 mm[Hg] 132 mm[Hg] [facility] Body weight 72.918831 kg 72.469293 kg [facility] Measured [facility] Body height 177.604883 177.219521 cm [facility] Body mass index 22.9 kg/m2 22.9 kg/m2 [facility] (BMI) [Ratio] Medical [facility] Body temperature 36.686827 36.784499 [facility] Respiratory rate 18 /min 18 /min [facility] Oxygen saturation 97 % 97 % [facility] in Arterial blood [facility] Center by Pulse oximetry Heart rate 97 /min 97 /min [facility] Diastolic blood 89 mm[Hg] 89 mm[Hg] [facility] pressure Medical Center Systolic blood 137 mm[Hg] 137 mm[Hg] [facility] Body weight 77.493913 kg 77.136064 kg [facility] Measured [facility] Body temperature 36.435166 36.828012 [facility] Respiratory rate 18 /min 18 /min [facility] Oxygen saturation 96 % 96 % [facility] in Arterial blood [facility] by Pulse oximetry Heart rate 84 /min 84 /min [facility] Body height 193.204228 193.866058 cm [facility] Diastolic blood 87 mm[Hg] 87 mm[Hg] [facility] pressure Medical [facility] Systolic blood 144 mm[Hg] 144 mm[Hg] [facility] Body mass index 20.6 kg/m2 20.6 kg/m2 [facility] (BMI) [Ratio] Medical [facility] Body temperature 37.584039 37.536291 [facility] Respiratory rate 17 /min 17 /min [facility] Oxygen saturation 98 % 98 % [facility] in [facility] blood [facility] by Pulse oximetry Heart rate 81 /min 81 /min [facility] Diastolic blood 76 mm[Hg] 76 mm[Hg] [facility] Systolic blood 139 mm[Hg] 139 mm[Hg] [facility] Body temperature 37.305778 37.541964 [facility] Respiratory rate 17 /min 17 /min [facility] Oxygen saturation 97 % 97 % [facility] in [facility] blood [facility] by Pulse oximetry Heart rate 84 /min 84 /min [facility] Diastolic blood 83 mm[Hg] 83 mm[Hg] [facility] Systolic blood 147 mm[Hg] 147 mm[Hg] [facility] Body temperature 36.872676 36.585308 [facility] Respiratory rate 18 /min 18 /min [facility] Oxygen saturation 98 % 98 % [facility] in [facility] blood [facility] by Pulse oximetry Heart rate 89 /min 89 /min [facility] Diastolic blood 80 mm[Hg] 80 mm[Hg] [facility] Systolic blood 134 mm[Hg] 134 mm[Hg] [facility] Body temperature 36.441446 36.831985 [facility] Respiratory rate 18 /min 18 /min [facility] Oxygen saturation 97 % 97 % [facility] in [facility] blood [facility] by Pulse oximetry Heart rate 68 /min 68 /min [facility] Diastolic blood 81 mm[Hg] 81 mm[Hg] [facility] pressure [facility] Center Systolic blood 134 mm[Hg] 134 mm[Hg] [facility] Body weight 77.129161 kg 77.137864 kg [facility] Measured [facility] Body temperature 36.423217 36.273154 [facility] Respiratory rate 17 /min 17 /min [facility] Oxygen saturation 98 % 98 % [facility] in Ar[facility] blood [facility] Center by Pulse oximetry Heart rate 65 /min 65 /min [facility] Body height 193.388068 193.781475 cm [facility] Medical [place] Diastolic blood 80 mm[Hg] 80 mm[Hg] [facility] pressure Medical Center Systolic blood 137 mm[Hg] 137 mm[Hg] [facility] Body mass index 20.6 kg/m2 20.6 kg/m2 [facility] (BMI) [Ratio] Medical [facility] Body temperature 37.897187 37.399943 [facility] Respiratory rate 18 /min 18 /min [facility] Oxygen saturation 96 % 96 % [facility] in [facility] blood [facility] Center by Pulse oximetry Heart rate 65 /min 65 /min [facility] Diastolic blood 66 mm[Hg] 66 mm[Hg] [facility] Systolic blood 149 mm[Hg] 149 mm[Hg] [facility] Body weight 77.939426 kg 77.336012 kg [facility]asured [facility] Body temperature 36.786275 36.489693 [facility] Respiratory rate 20 /min 20 /min [facility] Oxygen saturation 96 % 96 % [facility] in [facility] blood [facility] by Pulse oximetry Heart rate 48 /min 48 /min [facility] Body height 192.026976 192.893237 cm [facility] Diastolic blood 75 mm[Hg] 75 mm[Hg] [facility] pressure Medical Center Systolic blood 152 mm[Hg] 152 mm[Hg] [facility] Body mass index 20.6 kg/m2 20.6 kg/m2 [facility] (BMI) [Ratio] Medical [facility] Body temperature 36.342323 36.144467 [facility] Respiratory rate 18 /min 18 /min [facility] Oxygen saturation 97 % 97 % [facility] in [facility] blood [facility] by Pulse oximetry Heart rate 79 /min 79 /min [facility] Diastolic blood 84 mm[Hg] 84 mm[Hg] [facility] Systolic blood 132 mm[Hg] 132 mm[Hg] [facility] Body temperature 36.070217 36.266133 [facility] Respiratory rate 18 /min 18 /min [facility] Oxygen saturation 97 % 97 % [facility] in Arterial blood [facility] by Pulse oximetry Heart rate 76 /min 76 /min [facility] Diastolic blood 86 mm[Hg] 86 mm[Hg] [facility] Systolic blood 134 mm[Hg] 134 mm[Hg] [facility] Body temperature 36.608370 36.972674 [facility] Respiratory rate 18 /min 18 /min [facility] Oxygen saturation 96 % 96 % [facility] in [facility] blood [facility] by Pulse oximetry Heart rate 80 /min 80 /min [facility] Diastolic blood 97 mm[Hg] 97 mm[Hg] [facility] Systolic blood 133 mm[Hg] 133 mm[Hg] [facility] Body temperature 36.159343 36.360361 [facility] Respiratory rate 18 /min 18 /min [facility] Oxygen saturation 97 % 97 % [facility] in [facility] blood [facility] by Pulse oximetry Heart rate 89 /min 89 /min [facility] Diastolic blood 62 mm[Hg] 62 mm[Hg] [facility] Systolic blood 113 mm[Hg] 113 mm[Hg] [facility] Body temperature 36.384088 36.562439 [facility] Respiratory rate 18 /min 18 /min [facility] Oxygen saturation 97 % 97 % [facility] in [facility] blood [facility] by Pulse oximetry Heart rate 94 /min 94 /min [facility] Diastolic blood 59 mm[Hg] 59 mm[Hg] [facility] Systolic blood 106 mm[Hg] 106 mm[Hg] [facility] Body weight 77.448588 kg 77.488224 kg [facility] Body height 185.882864 185.615427 cm [facility] Body mass index 22.4 kg/m2 22.4 kg/m2 [facility] (BMI) [Ratio] Medical [facility] Body temperature 36.665576 36.387600 [facility] Respiratory rate 18 /min 18 /min [facility] Oxygen saturation 98 % 98 % [facility] in Arterial blood [facility] by Pulse oximetry Heart rate 98 /min 98 /min [facility] Diastolic blood 88 mm[Hg] 88 mm[Hg] [facility] Center Systolic blood 138 mm[Hg] 138 mm[Hg] [facility] Center Body temperature 36.110913 36.745350 [facility] Respiratory rate 18 /min 18 /min [facility] Oxygen saturation 97 % 97 % [facility] in [facility] blood [facility] by Pulse oximetry Heart rate 100 /min 100 /min [facility] Diastolic blood 80 mm[Hg] 80 mm[Hg] [facility] Systolic blood 145 mm[Hg] 145 mm[Hg] [facility] Body weight 77.504113 kg 77.529410 kg [facility] Measured [facility] Body temperature 36.806486 36.646238 [facility] Respiratory rate 17 /min 17 /min [facility] Oxygen saturation 97 % 97 % [facility] in [facility] blood [facility] by Pulse oximetry Heart rate 120 /min 120 /min [facility] Body height 193.531897 193.719046 cm [facility] Diastolic blood 92 mm[Hg] 92 mm[Hg] [facility] Center Systolic blood 148 mm[Hg] 148 mm[Hg] [facility] Center Body mass index 20.6 kg/m2 20.6 kg/m2 [facility] ([facility] [Ratio] Medical [facility] ter Body temperature 36.156796 36.653139 [facility] Respiratory rate 17 /min 17 /min [facility] Oxygen saturation 97 % 97 % [facility] in [facility] blood [facility] by Pulse oximetry Heart rate 68 /min 68 /min [facility] Diastolic blood 107 mm[Hg] 107 mm[Hg] [facility] pressure Medical Center Systolic blood 166 mm[Hg] 166 mm[Hg] [facility] Body temperature 37.919553 37.836597 [facility] Respiratory rate 20 /min 20 /min [facility] Oxygen saturation 94 % 94 % [facility] in [facility] blood [facility] Center by Pulse oximetry Heart rate 104 /min 104 /min [facility] Diastolic blood 107 mm[Hg] 107 mm[Hg] [facility] pressure Medical Center Systolic blood 165 mm[Hg] 165 mm[Hg] [facility] Body temperature 36.295335 36.879031 [facility] Respiratory rate 18 /min 18 /min [facility] Oxygen saturation 98 % 98 % [facility] in [facility] blood [facility] by Pulse oximetry Heart rate 104 /min 104 /min [facility] Diastolic blood 105 mm[Hg] 105 mm[Hg] [facility] pressure Medical Center Systolic blood 192 mm[Hg] 192 mm[Hg] [facility] Body weight 85.882561 kg 85.803441 kg [facility] Measured [facility] Body temperature 36.784520 36.088921 [facility] Respiratory rate 18 /min 18 /min [facility] Oxygen saturation 98 % 98 % [facility] in [facility] blood [facility] by Pulse oximetry Heart rate 88 /min 88 /min [facility] Body height 180.246812 180.964471 cm [facility] Medical [place] Diastolic blood 98 mm[Hg] 98 mm[Hg] [facility] pressure Medical Center Systolic blood 160 mm[Hg] 160 mm[Hg] [facility] Center Body mass index 26.1 kg/m2 26.1 kg/m2 [facility] (BMI) [Ratio] Medical [facility] Body weight 77.622620 kg 77.942687 kg [facility] Body temperature 36.308017 36.221405 [facility] Respiratory rate 18 /min 18 /min [facility] Oxygen saturation 95 % 95 % [facility] in [facility] blood [facility] by Pulse oximetry Heart rate 86 /min 86 /min [facility] Body height 177.644586 177.118938 cm [facility] Diastolic blood 88 mm[Hg] 88 mm[Hg] [facility] Systolic blood 131 mm[Hg] 131 mm[Hg] [facility] Body mass index 24.3 kg/m2 24.3 kg/m2 [facility] (BMI) [Ratio] Medical [facility] Body weight 90.047433 kg 90.766936 kg [facility] Body temperature 36.914799 36.886725 [facility] Respiratory rate 20 /min 20 /min [facility] Oxygen saturation 98 % 98 % [facility] in Arterial blood [facility] Center by Pulse oximetry Heart rate 76 /min 76 /min [facility] Body height 180.324486 180.244364 cm [facility] Diastolic blood 84 mm[Hg] 84 mm[Hg] [facility] Center Systolic blood 154 mm[Hg] 154 mm[Hg] [facility] Body mass index 27.6 kg/m2 27.6 kg/m2 [facility] (BMI) [Ratio] Medical [facility] ter Body temperature 36.215037 36.067221 [facility] Respiratory rate 18 /min 18 /min [facility] Oxygen saturation 97 % 97 % [facility] in Arterial blood [facility] Center by Pulse oximetry Heart rate 88 /min 88 /min [facility] Diastolic blood 85 mm[Hg] 85 mm[Hg] [facility] Center Systolic blood 151 mm[Hg] 151 mm[Hg] [facility] Body temperature 36.968871 36.611145 [facility] Respiratory rate 18 /min 18 /min [facility] Heart rate 93 /min 93 /min [facility] Diastolic blood 88 mm[Hg] 88 mm[Hg] [facility] Systolic blood 159 mm[Hg] 159 mm[Hg] [facility] Body temperature 36.438749 36.091401 [facility] Respiratory rate 19 /min 19 /min [facility] Heart rate 88 /min 88 /min [facility] Diastolic blood 90 mm[Hg] 90 mm[Hg] [facility] Systolic blood 154 mm[Hg] 154 mm[Hg] [facility] Body temperature 36.216115 36.424533 [facility] Respiratory rate 19 /min 19 /min [facility] Heart rate 92 /min 92 /min [facility] Diastolic blood 92 mm[Hg] 92 mm[Hg] [facility] pressure Medical Center Systolic blood 158 mm[Hg] 158 mm[Hg] [facility] Body temperature 36.675320 36.348636 [facility] Respiratory rate 19 /min 19 /min [facility] Center Heart rate 90 /min 90 /min [facility] Diastolic blood 94 mm[Hg] 94 mm[Hg] [facility] Systolic blood 156 mm[Hg] 156 mm[Hg] [facility] Body weight 95.979878 kg 95.598610 kg [facility] Oxygen saturation 96 % 96 % [facility] Bianca hennessy in [facility] blood [facility] Center by Pulse oximetry Body height 193.888247 193.857417 cm [facility] Body mass index 25.4 kg/m2 25.4 kg/m2 [facility] (BMI) [Ratio] Medical [facility] Diastolic blood 78 mm[Hg] 78 mm[Hg] eCW1 ([facility]) Systolic blood 124 mm[Hg] 124 mm[Hg] eCW1 ([facility]rystina t pressure [facility]) Heart rate 91 /min 91 /min eCW1 ([facility]) Body mass index 22.72 kg/m2 22.72 kg/m2 eCW1 (S aint (BMI) [Ratio] [facility]) Body weight 177 [lb_av] 177 [lb_av] eCW1 ([facility]) Body height 74 [in_us] 74 [in_us] eCW1 ([facility]) Body weight 100.156337 100.044475 kg [facility] Measured kg Medical Center Body temperature 36.874042 36.461502 [facility] Respiratory rate 19 /min 19 /min [facility] Oxygen saturation 97 % 97 % [facility] in Arterial blood Medical Center by Pulse oximetry Heart rate 88 /min 88 /min [facility] Body height 193.471783 193.204608 cm [facility] Diastolic blood 110 mm[Hg] 110 mm[Hg] [facility] pressure Medical Center Systolic blood 180 mm[Hg] 180 mm[Hg] [facility] Body mass index 26.8 kg/m2 26.8 kg/m2 [facility] (BMI) [Ratio] Medical [facility] Body temperature 37.218735 37.148046 [facility] Respiratory rate 19 /min 19 /min [facility] Oxygen saturation 98 % 98 % [facility] in [facility] blood [facility] by Pulse oximetry Heart rate 90 /min 90 /min [facility] Diastolic blood 90 mm[Hg] 90 mm[Hg] [facility] Medical [facility] Systolic blood 160 mm[Hg] 160 mm[Hg] [facility] Body temperature 37.186081 37.869469 [facility] Respiratory rate 19 /min 19 /min [facility] Oxygen saturation 98 % 98 % [facility] in [facility] blood [facility] Center by Pulse oximetry Heart rate 90 /min 90 /min [facility] Diastolic blood 90 mm[Hg] 90 mm[Hg] [facility] pressure Medical [facility] Systolic blood 160 mm[Hg] 160 mm[Hg] [facility] Respiratory rate 20 /min 20 /min [facility] Heart rate 93 /min 93 /min [facility] Diastolic blood 105 mm[Hg] 105 mm[Hg] [facility] pressure Medical Center Systolic blood 165 mm[Hg] 165 mm[Hg] [facility] Body temperature 36.851540 36.241723 [facility] Respiratory rate 20 /min 20 /min [facility] Oxygen saturation 97 % 97 % [facility] in [facility] blood [facility] by Pulse oximetry Heart rate 94 /min 94 /min [facility] Diastolic blood 112 mm[Hg] 112 mm[Hg] [facility] pressure Medical Center Systolic blood 174 mm[Hg] 174 mm[Hg] [facility] Body weight 77.134479 kg 77.713931 kg [facility] Measured [facility] Body temperature 36.094782 36.355037 [facility] Respiratory rate 18 /min 18 /min [facility] Oxygen saturation 97 % 97 % [facility] in Arterial blood [facility] Center by Pulse oximetry Heart rate 126 /min 126 /min [facility] Body height 177.442013 177.685670 cm [facility] Diastolic blood 108 mm[Hg] 108 mm[Hg] [facility] pressure Medical Center Systolic blood 155 mm[Hg] 155 mm[Hg] [facility] Body mass index 24.3 kg/m2 24.3 kg/m2 [facility] (BMI) [Ratio] Medical [facility] Body weight 75.614209 kg 75.515504 kg [facility] Body temperature 36.165227 36.887355 [facility] Respiratory rate 18 /min 18 /min [facility] Oxygen saturation 98 % 98 % [facility] in Arterial blood [facility] Center by Pulse oximetry Heart rate 94 /min 94 /min [facility] Body height 180.123780 180.960616 cm [facility] Diastolic blood 90 mm[Hg] 90 mm[Hg] [facility] Center Systolic blood 180 mm[Hg] 180 mm[Hg] [facility] Body mass index 23.0 kg/m2 23.0 kg/m2 [facility] (BMI) [Ratio] Medical [facility] Body weight 82.619966 kg 82.070767 kg [facility] Measured [facility] Body temperature 36.729741 36.809165 [facility] Respiratory rate 20 /min 20 /min [facility] Oxygen saturation 99 % 99 % [facility] in Arterial blood [facility] by Pulse oximetry Heart rate 93 /min 93 /min [facility] Body height 183.224731 183.901598 cm [facility] Medical [place] Diastolic blood 94 mm[Hg] 94 mm[Hg] [facility] pressure Medical Center Systolic blood 147 mm[Hg] 147 mm[Hg] [facility] Body mass index 24.4 kg/m2 24.4 kg/m2 [facility] (BMI) [Ratio] Medical [facility] Body weight 81.763797 kg 81.409415 kg [facility] Body height 193.354582 193.944538 cm [facility] Body mass index 21.91 kg/m2 21.91 kg/m2 [facility] (BMI) [Ratio] Medical [facility] ter Body temperature 36.269522 36.014957 [facility] Respiratory rate 18 /min 18 /min [facility] Heart rate 89 /min 89 /min [facility] Diastolic blood 97 mm[Hg] 97 mm[Hg] [facility] pressure Medical Center Systolic blood 143 mm[Hg] 143 mm[Hg] [facility] Body temperature 37.739909 37.494094 [facility] Respiratory rate 17 /min 17 /min [facility] Oxygen saturation 98 % 98 % [facility] Arterial blood [facility] by Pulse oximetry Heart rate 88 /min 88 /min [facility] Diastolic blood 96 mm[Hg] 96 mm[Hg] [facility] Systolic blood 154 mm[Hg] 154 mm[Hg] [facility] Body weight 81.850979 kg 81.094226 kg [facility] [place] Body temperature 37.580402 37.742024 [facility] Respiratory rate 17 /min 17 /min [facility] Oxygen saturation 98 % 98 % [facility] Arterial blood [facility] by Pulse oximetry Heart rate 79 /min 79 /min [facility] Body height 193.004459 193.325000 cm [facility] Diastolic blood 87 mm[Hg] 87 mm[Hg] [facility] Systolic blood 152 mm[Hg] 152 mm[Hg] [facility] Body mass index 21.9 kg/m2 21.9 kg/m2 [facility] (BMI) [Ratio] Medical [facility] Body temperature 36.624515 36.461955 [facility] Respiratory rate 18 /min 18 /min [facility] Oxygen saturation 98 % 98 % [facility] Arterial blood [facility] Center by Pulse oximetry Heart rate 90 /min 90 /min [facility] Diastolic blood 89 mm[Hg] 89 mm[Hg] [facility] Systolic blood 146 mm[Hg] 146 mm[Hg] [facility] Body temperature 36.124350 36.823922 [facility] Respiratory rate 17 /min 17 /min [facility] Oxygen saturation 98 % 98 % [facility] Arterial blood [facility] Center by Pulse oximetry Heart rate 89 /min 89 /min [facility] Diastolic blood 91 mm[Hg] 91 mm[Hg] [facility] pressure Medical Center Systolic blood 152 mm[Hg] 152 mm[Hg] [facility] Body weight 77.673156 kg 77.767445 kg [facility] Measured [facility] Body temperature 36.829448 36.425226 [facility] Respiratory rate 18 /min 18 /min [facility] Oxygen saturation 99 % 99 % [facility] blood [facility] Center by Pulse oximetry Heart rate 81 /min 81 /min [facility] Body height 193.772468 193.619502 cm [facility] Diastolic blood 109 mm[Hg] 109 mm[Hg] [facility] Systolic blood 157 mm[Hg] 157 mm[Hg] [facility] [place] Body mass index 20.6 kg/m2 20.6 kg/m2 [facility] (BMI) [Ratio] Medical [facility] Body weight 85.881564 kg 85.972345 kg [facility] Body temperature 36.671351 36.492949 [facility] Respiratory rate 18 /min 18 /min [facility] Oxygen saturation 98 % 98 % [facility] blood [facility] by Pulse oximetry Heart rate 88 /min 88 /min [facility] Body height 190.424472 190.798402 cm [facility] Medical [place] Diastolic blood 83 mm[Hg] 83 mm[Hg] [facility] Systolic blood 183 mm[Hg] 183 mm[Hg] [facility] Body mass index 23.4 kg/m2 23.4 kg/m2 [facility] (BMI) [Ratio] Medical [facility] Body temperature 36.254097 36.254033 [facility] Respiratory rate 18 /min 18 /min [facility] Oxygen saturation 97 % 97 % [facility] Arterial blood [facility] Center by Pulse oximetry Heart rate 82 /min 82 /min [facility] Diastolic blood 77 mm[Hg] 77 mm[Hg] [facility] Systolic blood 131 mm[Hg] 131 mm[Hg] [facility] Body temperature 36.536487 36.889325 [facility] Respiratory rate 17 /min 17 /min [facility] Oxygen saturation 100 % 100 % [facility] Arterial blood [facility] Center by Pulse oximetry Heart rate 101 /min 101 /min [facility] Diastolic blood 71 mm[Hg] 71 mm[Hg] [facility] Systolic blood 133 mm[Hg] 133 mm[Hg] [facility] Body temperature 37.708559 37.901178 [facility] Respiratory rate 18 /min 18 /min [facility] Heart rate 93 /min 93 /min [facility] Diastolic blood 76 mm[Hg] 76 mm[Hg] [facility] Systolic blood 143 mm[Hg] 143 mm[Hg] [facility] Body temperature 37.022421 37.285776 [facility] Oxygen saturation 96 % 96 % [facility] Arterial blood [facility] Center by Pulse oximetry Heart rate 96 /min 96 /min [facility] Diastolic blood 100 mm[Hg] 100 mm[Hg] [facility] Center Systolic blood 161 mm[Hg] 161 mm[Hg] [facility] Body weight 77.232854 kg 77.221530 kg [facility] Body height 190.125657 190.920773 cm [facility] Medical [place] Body mass index 21.38 kg/m2 21.38 kg/m2 [facility] (BMI) [Ratio] Medical [facility] Body temperature 36.174675 36.295374 [facility] Respiratory rate 20 /min 20 /min [facility] Heart rate 90 /min 90 /min [facility] Diastolic blood 76 mm[Hg] 76 mm[Hg] [facility] Center Systolic blood 125 mm[Hg] 125 mm[Hg] [facility] Body weight 77.769392 kg 77.338798 kg [facility] Measured [facility] Body temperature 36.094703 36.781508 [facility] Respiratory rate 20 /min 20 /min [facility] Center Heart rate 82 /min 82 /min [facility] Body height 190.015470 190.348986 cm [facility] Diastolic blood 103 mm[Hg] 103 mm[Hg] [facility] pressure Medical Center Systolic blood 155 mm[Hg] 155 mm[Hg] [facility] Body mass index 21.38 kg/m2 21.38 kg/m2 [facility] (BMI) [Ratio] Medical [facility] Body temperature 36.448021 36.503835 [facility] Respiratory rate 18 /min 18 /min [facility] Oxygen saturation 99 % 99 % [facility] Arterial blood [facility] Center by Pulse oximetry Heart rate 98 /min 98 /min [facility] Diastolic blood 98 mm[Hg] 98 mm[Hg] [facility] Center Systolic blood 159 mm[Hg] 159 mm[Hg] [facility] Body weight 80.414867 kg 80.417704 kg [facility] Respiratory rate 18 /min 18 /min [facility] Oxygen saturation 96 % 96 % [facility] Arterial blood [facility] Center by Pulse oximetry Body height 190.356771 190.755056 cm [facility] Body mass index 22.0 kg/m2 22.0 kg/m2 [facility] (BMI) [Ratio] Medical [facility] Body temperature 36.172227 36.710214 [facility] Respiratory rate 18 /min 18 /min [facility] Oxygen saturation 98 % 98 % [facility] Arterial blood [facility] Center by Pulse oximetry Heart rate 90 /min 90 /min [facility] Diastolic blood 103 mm[Hg] 103 mm[Hg] [facility] pressure Medical Center Systolic blood 160 mm[Hg] 160 mm[Hg] [facility] Body temperature 36.828064 36.485213 [facility] Respiratory rate 18 /min 18 /min [facility] Oxygen saturation 98 % 98 % [facility] Arterial blood [facility] Center by Pulse oximetry Heart rate 88 /min 88 /min [facility] Diastolic blood 80 mm[Hg] 80 mm[Hg] [facility] pressure Medical Center Systolic blood 139 mm[Hg] 139 mm[Hg] [facility] Body weight 85.981208 kg 85.759659 kg [facility] Measured [facility] Body temperature 36.811634 36.077824 [facility] Respiratory rate 18 /min 18 /min [facility] Oxygen saturation 98 % 98 % [facility] Arterial blood [facility] Center by Pulse oximetry Heart rate 93 /min 93 /min [facility] Body height 187.368943 187.451875 cm [facility] Diastolic blood 84 mm[Hg] 84 mm[Hg] [facility] pressure Medical Center Systolic blood 136 mm[Hg] 136 mm[Hg] [facility] Body mass index 24.2 kg/m2 24.2 kg/m2 [facility] (BMI) [Ratio] Medical [facility] Diastolic blood mm[Hg] [facility] pressure Medical Center Systolic blood mm[Hg] [facility] Body temperature 37.362184 37.234355 [facility] Respiratory rate 18 /min 18 /min [facility] Oxygen saturation 95 % 95 % [facility] Arterial blood [facility] Center by Pulse oximetry Heart rate 100 /min 100 /min [facility] Diastolic blood 94 mm[Hg] 94 mm[Hg] [facility] pressure Medical Center Systolic blood 152 mm[Hg] 152 mm[Hg] [facility] Body temperature 36.105859 36.652309 [facility] Respiratory rate 17 /min 17 /min [facility] Oxygen saturation 98 % 98 % [facility] Arterial blood [facility] Center by Pulse oximetry Heart rate 106 /min 106 /min [facility] Diastolic blood 100 mm[Hg] 100 mm[Hg] [facility] pressure Medical Center Systolic blood 154 mm[Hg] 154 mm[Hg] [facility] Body temperature 36.884404 36.868957 [facility] Respiratory rate 17 /min 17 /min [facility] Oxygen saturation 98 % 98 % [facility] in Arterial blood Medical Center by Pulse oximetry Heart rate 76 /min 76 /min [facility] Diastolic blood 104 mm[Hg] 104 mm[Hg] [facility] pressure [facility] Center Systolic blood 155 mm[Hg] 155 mm[Hg] [facility] pressure [facility]
--- NOTE | 2020-07-01 02:58 | PDOC ---
Attending Attestation - Resident Resident Name: GretchenSemaj - ED Attending Attestation I have performed the following: I have examined & evaluated the patient, The case was reviewed & discussed with the resident, I agree w/resident's findings & plan - HPI HPI: 07/01/20 03:38 Pt comes with muscle weakness in his legs. Pt states that when he wakes up in the middle of the night, he has to sit on the first step and push himself up the steps. 15 steps and then he sits at the top step and pushes himself downstairs. Pt attributes his weakness to his eliquis. Pt states that he dropped from 5mg BID to only 5mg naightly. Now with SOB and concern that he has a PE. Pt lost a great deal of weight and he has puffy violaceous eyes. Perhaps this is dermatomyositis - Physicial Exam PE: 07/01/20 03:42 Pt has normal vitals afebrile HEENT normal puffy eyes heart RRR lungs patchy wheeze abd soft NT ND ext no C/C?E pt is thin. His pants are held up with a belt; he states that he lost a lot of weight - Medical Decision Making 07/01/20 03:44 Pt has + Ddimer + BNP pt will have CTA; if normal he will be sent home and asked to resume eliquis BID Discharge - Discharge Information Problems reviewed: Yes Clinical Impression/Diagnosis: SOB (shortness of breath) Condition: Stable Disposition: HOME - Follow up/Referral - Patient Discharge Instructions Patient Printed Discharge Instructions: DI for Shortness of Breath Additional Instructions: You were seen in the ER for shortness of breath. Your CT scan was normal. Be sure to take your eliquis as directed - it is an important medication that can prevent strokes or blood clots that can travel to the lung and be fatal. Return to the ER if you develop weakness, confusion, high fevers, chest pain, or difficulty breathing. - Post Discharge Activity
--- NOTE | 2020-07-01 04:14 | PDOC ---
History of Present Illness - General Chief Complaint: Shortness of Breath Stated Complaint: SOB Time Seen by Provider: 07/01/20 01:08 History Source: Patient - History of Present Illness Initial Comments: 07/01/20 22:06 70M w/hx HTN, HLD, CAD on eliquis p/w worsening bilateral lower extremity discomfort, mild sob that has resolved. He reports difficulty finding position of comfort while trying to sleep, and noting mild sob at the time, and pressing his life alert for assistance. He reports that the leg discomfort is baseline without any acute worsening or changes in strength, sensation, or ambulation. He denies any urinary or fecal incontinence or difficulty walking. He reports that one week ago he began taking half of his dose of eliquis after hearing that it may make his legs weak. He denies any chest pain or palpitations at this time. Past History - Medical History Allergies/Adverse Reactions: Allergies Allergy/AdvReac Type Severity Reaction Status Date / Time lisinopril Allergy Severe Swelling Verified 06/28/20 07:18 enalapril Allergy Swelling Verified 06/28/20 07:18 Home Medications: Ambulatory Orders Hydralazine HCl 10 mg PO DAILY 01/27/20 Apixaban [Eliquis] 5 mg PO BID 02/18/20 Metoprolol Succinate 75 mg PO BID 03/23/20 Albuterol Sulfate Inhaler - [Ventolin HFA Inhaler -] 1 - 2 inh PO Q4H #1 inhaler 05/31/20 Anemia: No Asthma: No Cancer: No Cardiac Disorders: Yes (Afib (on Eliquis), LHC) CVA: No COPD: Yes CHF: No DVT: No Dementia: No Diabetes: No Dialysis: No GI Disorders: No Disorders: No HTN: Yes Hypercholesterolemia: Yes Kidney Stones: No Liver Disease: No Psychiatric Problems: Yes (Alcohol Use Disorder) Seizures: Yes (09/2018 hospitalization) Thyroid Disease: No Lung CA: No - Surgical History Abdominal Surgery: No Appendectomy: No Cardiac Surgery: No Cholecystectomy: No Gastric Stapling: No GI Surgery: No Lung Surgery: No Neurologic Surgery: No - Immunization History Td Vaccination: Yes TDAP Vaccination: Yes Immunization Up to Date: Yes - Psycho-Social/Smoking History Smoking History: Current every day smoker Have you smoked in the past 12 months: Yes Number of Cigarettes Smoked Daily: 6 Information on smoking cessation initiated: No 'Breaking Loose' booklet given: 03/31/20 - Substance Abuse Hx (Audit-C & DAST Scrn) How often the patient has a drink containing alcohol: 2-3 times / week Number of drinks the patient has on a typical day: 1 or 2 How often the patient has six or more drinks on one occasion: Never Score: In Men: 4 or > Positive; In Women: 3 or > Positive: 3 Screen Result (Pos requires Nsg. Audit-10AR): Negative In the last yr the pt used illegal drug/Rx for NonMed reason: No Score: Yes response is considered Positive: 0 Screen Result (Positive result requires Nsg. DAST-10): Negative Review of Systems - Review of Systems Able to Perform ROS?: Yes Comments:: 07/01/20 22:11 GENERAL/CONSTITUTIONAL: No fever or chills. No weakness. HEAD, EYES, EARS, NOSE AND THROAT: No change in vision. No ear pain or discharge. No sore throat. CARDIOVASCULAR: No chest pain or shortness of breath RESPIRATORY: No cough, wheezing, or hemoptysis. GASTROINTESTINAL: No nausea, vomiting, diarrhea or constipation. GENITOURINARY: No dysuria, frequency, or change in urination. MUSCULOSKELETAL: No joint or muscle swelling or pain. No neck or back pain. SKIN: No rash NEUROLOGIC: No headache, vertigo, loss of consciousness, or change in strength/sensation. ENDOCRINE: No increased thirst. No abnormal weight change HEMATOLOGIC/LYMPHATIC: No anemia, easy bleeding, or history of blood clots. ALLERGIC/IMMUNOLOGIC: No hives or skin allergy. *Physical Exam - Vital Signs Last Vital Signs Temp Pulse Resp BP Pulse Ox 98.0 F 78 20 151/107 H 100 07/01/20 01:35 07/01/20 01:35 07/01/20 01:35 07/01/20 01:35 07/01/20 01:35 - Physical Exam 07/01/20 22:11 GENERAL: Awake, alert, and fully oriented, in no acute distress HEAD: No signs of trauma, normocephalic, atraumatic EYES: PERRLA, EOMI, sclera anicteric, conjunctiva clear ENT: Auricles normal inspection, hearing grossly normal, nares patent, oropharynx clear without exudates. Moist mucosa NECK: Normal ROM, supple, no lymphadenopathy, JVD, or masses LUNGS: No distress, speaks full sentences, clear to auscultation bilaterally HEART: Regular rate and rhythm, normal S1 and S2, no murmurs, rubs or gallops, peripheral pulses normal and equal bilaterally. ABDOMEN: Soft, nontender, normoactive bowel sounds. No guarding, no rebound. No masses EXTREMITIES : Normal inspection, Normal range of motion, no edema. No clubbing or cyanosis NEUROLOGICAL: Cranial nerves II through XII grossly intact. Normal speech, normal gait, no focal sensorimotor deficits SKIN: Warm, Dry, normal turgor, no rashes or lesions noted ED Treatment Course - ADDITIONAL ORDERS Additional order review: Laboratory Results 07/01/20 07/01/20 02:00 02:00 D-Dimer 3363 H Troponin I < 0.02 B-Natriuretic Peptide 826.0 H - RADIOLOGY Radiology Studies Ordered: Category Date Time Status CHEST CTA [CT] Stat CT Scan 07/01/20 02:49 Taken Medical Decision Making - Medical Decision Making 07/01/20 22:11 70M w/hx HTN, HLD, CAD on eliquis, recently self reduced dose of eliquis p/w ongoing LE discomfort and brief episode of sob. Ddx PE given recent change in eliquis dosing, alongside tachycardia to 130s on evaluation. Plan: PT/INR, APTT D-dimer BNP Troponin CTA Chest pending d-dimer Dispo: Discharge pending labs, imaging --- D-dimer - >3000 Plan for CTA chest --- CTA - negative for acute PE or other acute process. He reports feeling well and would like to go home. Plan for discharge with close PCP follow up. Discharge - Discharge Information Problems reviewed: Yes Clinical Impression/Diagnosis: SOB (shortness of breath) Condition: Stable Disposition: HOME - Admission No - Follow up/Referral - Patient Discharge Instructions Patient Printed Discharge Instructions: DI for Shortness of Breath Additional Instructions: You were seen in the ER for shortness of breath. Your CT scan was normal. Be sure to take your eliquis as directed - it is an important medication that can prevent strokes or blood clots that can travel to the lung and be fatal. Return to the ER if you develop weakness, confusion, high fevers, chest pain, or difficulty breathing. - Post Discharge Activity
--- NOTE | 2020-07-02 06:59 | EKG ---
Test Reason : Blood Pressure : / mmHG Vent. Rate : 112 BPM Atrial Rate : 097 BPM P-R Int : 000 ms QRS Dur : 096 ms QT Int : 370 ms P-R-T Axes : 000 054 097 degrees QTc Int : 505 ms ATRIAL FIBRILLATION WITH RAPID VENTRICULAR RESPONSE MINIMAL VOLTAGE CRITERIA FOR LVH, MAY BE NORMAL VARIANT SEPTAL INFARCT (CITED ON OR BEFORE 03-NOV-2019) ABNORMAL ECG WHEN COMPARED WITH ECG OF 27-JUN-2020 14:14, NONSPECIFIC T WAVE ABNORMALITY, IMPROVED IN LATERAL LEADS CLINICAL CORRELATION IS RECOMMENDED Confirmed by STANLEY GARY, DAVIDSON ([id number]) on 07/02/2020 6:58:47 AM Referred By: Confirmed By:DAVIDSON ANGEL MD
== END 2020-07-01 05:32 | disposition home or self-care (01) ==
LOC: JER 00:47
DX: R06.02 Shortness of breath (principal)
CPT/HCPCS: 36415; 71275-TC; 83880; 84484; 85379; 93005; 93010; 99285-25; Q9967

== ENCOUNTER 2020-09-07 00:29 | Inpatient (IN) | payer OTHER ==
[2020-09-07] MEDS ORDERED: chlordiazePOXIDE HCL 25 MG CAPSULE PO ONE (00:56)
[2020-09-07 00:57] VITALS: BMI 20.7
[2020-09-07 02:15] LABS: BASO % 0.2 % (0-2.0); HEMATOCRIT 36.5 % (35.4-49); HEMOGLOBIN 11.8 GM/dL (11.7-16.9); LYMPH % 10.7 % (8-40); MCH 28.7 pg (25.7-33.7); MCHC 32.3 g/dl (32.0-35.9); MEAN CELL VOLUME 88.9 fl (80-96); MONO % 4.8 % (3.8-10.2); NEUT % 84.3 % (42.8-82.8); PLATELET COUNT 131 K/MM3 (134-434); RDW 21.4 % (11.9-15.9); WHITE BLOOD COUNT 8.4 K/mm3 (4.0-10.0)
[2020-09-07 02:39] LABS: CHLORIDE 104 mmol/L (98-107); POTASSIUM 3.5 mmol/L (3.5-5.1); SODIUM 142 mmol/L (136-145)
[2020-09-07] MEDS ORDERED: dilTIAZem HCL 50 MG/10 ML - 10 ML VIAL IVPUSH ONE (02:42)
[2020-09-07] MEDS ORDERED: dilTIAZem HCL 30 MG TABLET PO ONE (02:42)
[2020-09-07 02:45] LABS: ALBUMIN 3.7 g/dl (3.4-5.0); ANION GAP 20 MMOL/L (8-16); BLOOD UREA NITROGEN 9.4 mg/dL (7-18); CO2 18 mmol/L (21-32); GLUCOSE,RANDOM 99 mg/dL (74-106)
[2020-09-07 02:48] LABS: SGOT/AST 24 U/L (15-37); SGPT/ALT 16 U/L (13-61)
[2020-09-07 02:50] LABS: ALK PHOS 100 U/L (45-117); TOT PROT 6.7 g/dl (6.4-8.2)
[2020-09-07] MEDS ORDERED: dilTIAZem HCL 30 MG TABLET PO STA (06:10)
[2020-09-07] MEDS ORDERED: METOPROLOL TARTRATE 25 MG TABLET (FP) PO SCH (06:15)
[2020-09-07] MEDS ORDERED: LACTATED RINGERS SOLUTION 1,000 ML/1,000 ML INFUS.BAG IV SCH (06:30)
[2020-09-07 06:45] VITALS: PULSE 105
[2020-09-07 07:20] LABS: EPI CELLS 6 /uL (0-25.1); HYALINE CASTS 0 /uL (0-3.1); URINE APPEARANCE CLEAR; URINE BACTERIA 5 /uL (0-1359); URINE BILIRUBIN NEGATIVE (NEGATIVE); URINE COLOR YELLOW; URINE GLUCOSE (UA) NEGATIVE (NEGATIVE); URINE KETONE NEGATIVE (NEGATIVE); URINE LEUK ESTERASE NEGATIVE (NEGATIVE); URINE NITRITE NEGATIVE (NEGATIVE); URINE PROTEIN 1+ (NEGATIVE); URINE RBC 7 /uL (0-23.9); URINE WBC 8 /uL (0-25.8)
[2020-09-07 07:32] LABS: URINE BARBITURATES NEGATIVE ng/ml (CUTOFF=200); URINE BENZODIAZEPINES NEGATIVE ng/ml (CUTOFF=200)
[2020-09-07 07:33] LABS: COCAINE, UR NEGATIVE ng/ml (CUTOFF=300); METHADONE, UR NEGATIVE ng/ml (CUTOFF=300); OPIATES, URI NEGATIVE ng/ml (CUTOFF=300); PHENCYCLIDINE,URINE NEGATIVE ng/ml (CUTOFF=25)
[2020-09-07 07:37] LABS: URINE AMPHETAMINES NEGATIVE ng/ml (CUTOFF=500)
[2020-09-07] MEDS ORDERED: chlordiazePOXIDE HCL 25 MG CAPSULE PO PRN (08:10)
[2020-09-07 08:28] LABS: BASO % 0.2 % (0-2.0); EOS % 0.1 % (0-4.5); HEMATOCRIT 37.5 % (35.4-49); MCH 28.5 pg (25.7-33.7); MCHC 31.9 g/dl (32.0-35.9); MEAN CELL VOLUME 89.2 fl (80-96); MEAN PLT VOLUME 9.1 fl (7.5-11.1); NEUT % 73.7 % (42.8-82.8); PLATELET COUNT 131 K/MM3 (134-434); RDW 21.8 % (11.9-15.9)
[2020-09-07 08:30] LABS: CHLORIDE 103 mmol/L (98-107); POTASSIUM 3.7 mmol/L (3.5-5.1); SODIUM 141 mmol/L (136-145)
[2020-09-07] MEDS ORDERED: FOLIC ACID INJECTION - 1 MG, THIAMINE HCL 100 MG, MULTIVIT INJECTION ADULT 10 ML in SOD... IVPB ONE (08:30)
[2020-09-07 08:33] LABS: ALBUMIN 3.8 g/dl (3.4-5.0); ANION GAP 10 MMOL/L (8-16); BLOOD UREA NITROGEN 8.4 mg/dL (7-18); CALCIUM 8.3 mg/dL (8.5-10.1); CO2 27 mmol/L (21-32); GLUCOSE,RANDOM 114 mg/dL (74-106); MAGNESIUM 1.2 mg/dL (1.8-2.4)
[2020-09-07 08:36] LABS: PHOSPHOROUS 2.5 mg/dL (2.5-4.9); SGOT/AST 28 U/L (15-37); SGPT/ALT 17 U/L (13-61)
[2020-09-07 08:38] LABS: BILIRUBIN,TOTAL 1.4 mg/dL (0.2-1); TOT PROT 6.9 g/dl (6.4-8.2)
[2020-09-07 08:39] LABS: ALK PHOS 103 U/L (45-117)
[2020-09-07 08:40] LABS: INR 1.05 (0.83-1.09); PROTHROMBIN TIME (PATIENT) 12.9 SEC (9.7-13.0)
[2020-09-07] MEDS ORDERED: MULTIVITAMINS (DAILY MVI) TABLET (FP) PO SCH (10:00)
[2020-09-07] MEDS ORDERED: ENOXAPARIN NA (PORCINE) 40 MG/0.4 ML DISP.SYRIN SQ SCH (10:00)
[2020-09-07] MEDS ORDERED: THIAMINE HCL 100 MG TABLET (FP) PO SCH (10:00)
[2020-09-07] MEDS ORDERED: FOLIC ACID 1 MG TABLET (FP) PO SCH (10:00)
[2020-09-07] MEDS ORDERED: APIXABAN 5 MG TABLET PO SCH (10:00)
[2020-09-07 10:04] VITALS: BP 145/67; TEMP 98
[2020-09-07] MEDS ORDERED: chlordiazePOXIDE HCL 25 MG CAPSULE PO SCH (11:00)
[2020-09-09] MEDS ORDERED: chlordiazePOXIDE HCL 25 MG CAPSULE PO SCH (05:00)
[2020-09-10] MEDS ORDERED: chlordiazePOXIDE HCL 10 MG CAPSULE PO PRN
[2020-09-10] MEDS ORDERED: chlordiazePOXIDE HCL 10 MG CAPSULE PO SCH (05:00)
[2020-09-11] MEDS ORDERED: chlordiazePOXIDE HCL 10 MG CAPSULE PO SCH (05:00)
[2020-09-12] MEDS ORDERED: chlordiazePOXIDE HCL 10 MG CAPSULE PO ONE (05:00)
== END 2020-09-07 10:25 | disposition left against medical advice (07) | DRG 309 ==
LOC: JER 00:29 → JERBED 05:31
PROVIDERS: ADMIT Hospitalist; ATTEND Nurse Practitioner Acute Care
DX: I48.91 Unspecified atrial fibrillation (principal); F10.230 Alcohol dependence with withdrawal, uncomplicated; R55 Syncope and collapse; J44.9 Chronic obstructive pulmonary disease, unspecified; I10 Essential (primary) hypertension; E78.5 Hyperlipidemia, unspecified; Z79.01 Long term (current) use of anticoagulants; I25.10 Atherosclerotic heart disease of native coronary artery without angina pectoris; F17.210 Nicotine dependence, cigarettes, uncomplicated; Z91.14 Patient's other noncompliance with medication regimen
CPT/HCPCS: 36415; 70450-TC; 71045-TC-FY; 72125-TC; 80053; 80307; 81003; 82010; 82550; 82553; 82962; 83735; 84100; 84443; 84484; 85025; 85610; 93005; 93010; 99291; 99292; C9803; U0003

== ENCOUNTER 2020-09-29 10:59 | Inpatient (IN) | payer OTHER ==
[2020-09-29 11:40] VITALS: BMI 21.5
[2020-09-29] MEDS ORDERED: DEXAMETHASONE SOD PHOSPHATE 10 MG/1 ML VIAL IVPUSH ONE (12:13)
[2020-09-29] MEDS ORDERED: DEXAMETHASONE SOD PHOSPHATE 4 MG/1 ML VIAL ONE ×2 (12:57)
[2020-09-29 13:29] LABS: BASO % 0.9 % (0-2.0); HEMATOCRIT 42.4 % (35.4-49); HEMOGLOBIN 13.3 GM/dL (11.7-16.9); LYMPH % 31.7 % (8-40); MCH 28.2 pg (25.7-33.7); MCHC 31.4 g/dl (32.0-35.9); MEAN CELL VOLUME 89.8 fl (80-96); MEAN PLT VOLUME 8.8 fl (7.5-11.1); MONO % 5.3 % (3.8-10.2); NEUT % 61.1 % (42.8-82.8); PLATELET COUNT 281 K/MM3 (134-434); RBC 4.72 M/mm3 (4.00-5.60); RDW 21.7 % (11.9-15.9); WHITE BLOOD COUNT 7.8 K/mm3 (4.0-10.0)
[2020-09-29 13:48] LABS: CHLORIDE 110 mmol/L (98-107); SODIUM 147 mmol/L (136-145)
[2020-09-29 13:50] LABS: ALBUMIN 3.5 g/dl (3.4-5.0); ANION GAP 6 MMOL/L (8-16); CALCIUM 8.4 mg/dL (8.5-10.1); CO2 31 mmol/L (21-32); MAGNESIUM 1.8 mg/dL (1.8-2.4)
[2020-09-29 13:51] LABS: GLUCOSE,RANDOM 90 mg/dL (74-106)
[2020-09-29 13:53] LABS: SGOT/AST 34 U/L (15-37); SGPT/ALT 22 U/L (13-61)
[2020-09-29 13:54] LABS: CREATININE 1.2 mg/dL (0.55-1.3); PHOSPHOROUS 4.1 mg/dL (2.5-4.9)
[2020-09-29 13:55] LABS: BILIRUBIN,TOTAL 0.4 mg/dL (0.2-1); TOT PROT 6.6 g/dl (6.4-8.2)
[2020-09-29 13:56] LABS: ALK PHOS 92 U/L (45-117)
[2020-09-29] MEDS ORDERED: NIFEdipine E.R. 90 MG TABLET PO SCH (16:45)
[2020-09-29] MEDS ORDERED: LORazepam 1 MG TABLET PO ONE (16:54)
[2020-09-29] MEDS ORDERED: LORazepam 1 MG TABLET PO PRN (16:55)
[2020-09-29] MEDS ORDERED: NIFEdipine E.R. 30 MG TABLET ONE (17:26)
[2020-09-29] MEDS ORDERED: LORazepam 0.5 MG TABLET ONE (17:27)
[2020-09-29] MEDS ORDERED: ZINC SULFATE 220 MG CAPSULE (FP) ONE (17:28)
[2020-09-29] MEDS ORDERED: CHOLECALCIFEROL (VIT D3) 400 UNIT (10 MCG) TABLET PO SCH (17:30)
[2020-09-29] MEDS ORDERED: DEXAMETHASONE SOD PHOSPHATE 10 MG/1 ML VIAL ONE (17:30)
[2020-09-29] MEDS ORDERED: ZINC SULFATE 220 MG CAPSULE (FP) PO SCH (17:30)
[2020-09-29] MEDS ORDERED: DEXAMETHASONE SOD PHOSPHATE 10 MG/1 ML VIAL IVPUSH SCH ×2 (18:00→18:55)
[2020-09-29] MEDS ORDERED: APIXABAN 5 MG TABLET PO SCH (22:00)
[2020-09-29] MEDS ORDERED: ASCORBIC ACID 500 MG TABLET (FP) PO SCH (22:00)
[2020-09-29] MEDS ORDERED: METOPROLOL TARTRATE 5 MG/5 ML VIAL IVPUSH ONE (22:24)
[2020-09-29] MEDS ORDERED: APIXABAN 5 MG TABLET ONE (22:30)
[2020-09-29] MEDS ORDERED: ASCORBIC ACID 500 MG TABLET (FP) ONE (22:32)
[2020-09-29] MEDS ORDERED: METOPROLOL TARTRATE 5 MG/5 ML VIAL ONE (22:33)
[2020-09-29 22:48] VITALS: BP 151/111; PULSE 117; TEMP 98.5
[2020-09-30] MEDS ORDERED: ONDANSETRON 4 MG/2 ML VIAL IVPUSH PRN (08:33)
[2020-09-30] MEDS ORDERED: SODIUM CHLORIDE 500 ML IV STA (08:33)
[2020-09-30] MEDS ORDERED: chlordiazePOXIDE HCL 25 MG CAPSULE PO PRN (08:35)
[2020-09-30] MEDS ORDERED: chlordiazePOXIDE HCL 25 MG CAPSULE PO SCH (11:00)
[2020-10-02] MEDS ORDERED: chlordiazePOXIDE HCL 25 MG CAPSULE PO SCH (05:00)
[2020-10-03] MEDS ORDERED: chlordiazePOXIDE HCL 10 MG CAPSULE PO PRN
[2020-10-03] MEDS ORDERED: chlordiazePOXIDE HCL 10 MG CAPSULE PO SCH (05:00)
[2020-10-04] MEDS ORDERED: chlordiazePOXIDE HCL 10 MG CAPSULE PO SCH (05:00)
[2020-10-05] MEDS ORDERED: chlordiazePOXIDE HCL 10 MG CAPSULE PO ONE (05:00)
== END 2020-09-30 02:15 | disposition left against medical advice (07) | DRG 312 ==
LOC: JER 10:59 → JERBED 15:41
PROVIDERS: ADMIT Internal Medicine; ATTEND Internal Medicine
PROC: HZ2ZZZZ Detoxification Services for Substance Abuse Treatment (ICD-10-PCS; principal; 2020-09-29)
DX: R55 Syncope and collapse (principal); E87.0 Hyperosmolality and hypernatremia; F10.99 Alcohol use, unspecified with unspecified alcohol-induced disorder; R06.00 Dyspnea, unspecified; I16.0 Hypertensive urgency
CPT/HCPCS: 36415; 80053; 83735; 84100; 84484; 85025; 93005; 93010; 99285-25; C9803; J1100; U0003

== ENCOUNTER 2020-10-08 23:06 | Emergency (ER) | payer OTHER ==
[2020-10-08 23:33] VITALS: TEMP 97.6; BMI 21.4
[2020-10-09] MEDS ORDERED: GABAPENTIN 300 MG CAPSULE PO ONE (00:22)
[2020-10-09] MEDS ORDERED: GABAPENTIN 100 MG CAPSULE ONE (00:25)
[2020-10-09] MEDS ORDERED: KETOROLAC TROMETHAMINE 30 MG/1 ML VIAL IM ONE (00:44)
[2020-10-09] MEDS ORDERED: KETOROLAC TROMETHAMINE 30 MG/1 ML VIAL ONE (01:01)
[2020-10-09 02:23] LABS: BASO % 0.9 % (0-2.0); EOS % 0.6 % (0-4.5); HEMATOCRIT 38.4 % (35.4-49); HEMOGLOBIN 12.5 GM/dL (11.7-16.9); LYMPH % 33.2 % (8-40); MCH 29.2 pg (25.7-33.7); MCHC 32.5 g/dl (32.0-35.9); MEAN CELL VOLUME 90.1 fl (80-96); MEAN PLT VOLUME 9.4 fl (7.5-11.1); MONO % 6.6 % (3.8-10.2); NEUT % 58.7 % (42.8-82.8); PLATELET COUNT 82 K/MM3 (134-434); RBC 4.27 M/mm3 (4.00-5.60); RDW 25.1 % (11.9-15.9); WHITE BLOOD COUNT 11.3 K/mm3 (4.0-10.0)
[2020-10-09 02:40] LABS: POTASSIUM 4.1 mmol/L (3.5-5.1)
[2020-10-09 02:42] LABS: CALCIUM 7.9 mg/dL (8.5-10.1)
[2020-10-09 02:43] LABS: ALBUMIN 3.4 g/dl (3.4-5.0); BLOOD UREA NITROGEN 16.2 mg/dL (7-18)
[2020-10-09 02:46] LABS: CREATININE 1.3 mg/dL (0.55-1.3)
[2020-10-09 02:47] LABS: BILIRUBIN,TOTAL 0.7 mg/dL (0.2-1); TOT PROT 6.2 g/dl (6.4-8.2)
[2020-10-09 03:05] LABS: ANISOCYTOSIS 2+; MACROCYTOSIS 2+; OVALOCYTE 1+; PLATELET ESTIMATE DECREASED
[2020-10-09 04:19] VITALS: BP 145/89; PULSE 99
== END 2020-10-09 04:38 | disposition home or self-care (01) ==
LOC: JER 23:06
PROC: 3E0233Z Introduction of Anti-inflammatory into Muscle, Percutaneous Approach (ICD-10-PCS; principal; 2020-10-08)
DX: R20.2 Paresthesia of skin (principal)
CPT/HCPCS: 36415; 80053; 82550; 83880; 84443; 84484; 85025; 93005; 93010; 99285-25

== ENCOUNTER 2020-11-03 18:49 | Emergency (ER) | payer OTHER ==
[2020-11-03 19:22] VITALS: BP 153/85; PULSE 76; TEMP 98.5
[2020-11-03 22:51] LABS: BASO % 0.4 % (0-2.0); EOS % 0.1 % (0-4.5); HEMATOCRIT 39.3 % (35.4-49); HEMOGLOBIN 12.6 GM/dL (11.7-16.9); LYMPH % 16.7 % (8-40); MCH 28.7 pg (25.7-33.7); MEAN CELL VOLUME 89.6 fl (80-96); MEAN PLT VOLUME 8.5 fl (7.5-11.1); MONO % 3.8 % (3.8-10.2); PLATELET COUNT 232 K/MM3 (134-434); RBC 4.39 M/mm3 (4.00-5.60); RDW 23.8 % (11.9-15.9); WHITE BLOOD COUNT 11.2 K/mm3 (4.0-10.0)
[2020-11-03 22:53] LABS: INR 0.98 (0.83-1.09); PROTHROMBIN TIME (PATIENT) 12.1 SEC (9.7-13.0)
[2020-11-03 22:56] LABS: ACTIVATED PTT 29.7 SECONDS (25.2-36.5)
[2020-11-03 23:04] LABS: POTASSIUM 3.6 mmol/L (3.5-5.1)
[2020-11-03 23:05] LABS: CALCIUM 8.4 mg/dL (8.5-10.1)
[2020-11-03 23:06] LABS: ALBUMIN 3.1 g/dl (3.4-5.0); BLOOD UREA NITROGEN 11.4 mg/dL (7-18)
[2020-11-03] MEDS ORDERED: LACTATED RINGERS SOLUTION 1000 ML INFUS.BAG IV ONE (23:07)
[2020-11-03 23:10] LABS: BILIRUBIN,TOTAL 0.7 mg/dL (0.2-1)
[2020-11-03 23:11] LABS: TOT PROT 5.9 g/dl (6.4-8.2)
[2020-11-03 23:28] LABS: ANISOCYTOSIS 3+; PLATELET ESTIMATE NORMAL
== END 2020-11-04 00:20 | disposition left against medical advice (07) ==
LOC: JER 18:49
DX: R55 Syncope and collapse (principal)
CPT/HCPCS: 36415; 70450-TC; 72125-TC; 80053; 80307; 84484; 85025; 85610; 85730; 93005; 93010; 99285-25

== ENCOUNTER 2020-11-28 17:31 | Emergency (ER) | payer OTHER ==
[2020-11-28 17:45] VITALS: BMI 20.7
[2020-11-28 21:33] LABS: BASO % 1.1 % (0-2.0); EOS % 0.1 % (0-4.5); HEMATOCRIT 38.1 % (35.4-49); HEMOGLOBIN 12.6 GM/dL (11.7-16.9); LYMPH % 26.3 % (8-40); MCH 30.3 pg (25.7-33.7); MCHC 33.2 g/dl (32.0-35.9); MEAN CELL VOLUME 91.3 fl (80-96); MEAN PLT VOLUME 8.2 fl (7.5-11.1); MONO % 3.2 % (3.8-10.2); NEUT % 69.3 % (42.8-82.8); PLATELET COUNT 317 K/MM3 (134-434); RBC 4.17 M/mm3 (4.00-5.60); RDW 26.3 % (11.9-15.9); WHITE BLOOD COUNT 10.1 K/mm3 (4.0-10.0)
[2020-11-28 21:35] LABS: INR 0.95 (0.83-1.09); PROTHROMBIN TIME (PATIENT) 11.7 SEC (9.7-13.0)
[2020-11-28 22:05] LABS: POTASSIUM 3.8 mmol/L (3.5-5.1)
[2020-11-28 22:08] LABS: ALBUMIN 3.5 g/dl (3.4-5.0); BLOOD UREA NITROGEN 16.6 mg/dL (7-18); MAGNESIUM 1.6 mg/dL (1.8-2.4)
[2020-11-28 22:11] LABS: CREATININE 1.1 mg/dL (0.55-1.3)
[2020-11-28 22:13] LABS: BILIRUBIN,TOTAL 0.7 mg/dL (0.2-1); TOT PROT 6.4 g/dl (6.4-8.2)
[2020-11-28 22:18] LABS: CALCIUM 8.5 mg/dL (8.5-10.1)
[2020-11-28 22:20] LABS: ANISOCYTOSIS 1+; MACROCYTOSIS 1+; OVALOCYTE 1+; PLATELET ESTIMATE NORMAL
[2020-11-28 22:49] VITALS: BP 163/100; PULSE 113; TEMP 97
[2020-11-28] MEDS ORDERED: MAGNESIUM SULF 50% (8.12 MEQ/2 ML-1 GM VIAL) IVPB ONE (23:12)
[2020-11-28] MEDS ORDERED: LORazepam 2 MG/ML SDV VIAL IVPUSH ONE (23:14)
== END 2020-11-29 02:29 | disposition left against medical advice (07) ==
LOC: JER 17:31
PROC: 3E033NZ Introduction of Analgesics, Hypnotics, Sedatives into Peripheral Vein, Percutaneous Approach (ICD-10-PCS; principal; 2020-11-28)
PROC: 3E033GC Introduction of Other Therapeutic Substance into Peripheral Vein, Percutaneous Approach (ICD-10-PCS; 2020-11-28)
DX: F10.239 Alcohol dependence with withdrawal, unspecified (principal); I50.9 Heart failure, unspecified; I48.91 Unspecified atrial fibrillation
CPT/HCPCS: 36415; 70450-TC; 71045-TC-FY; 80053; 80307; 82550; 82962; 83735; 83880; 84484; 85025; 85610; 93005; 93010; 99291; C9803; U0003

== ENCOUNTER 2021-01-24 21:42 | Inpatient (IN) | payer OTHER ==
[2021-01-25 01:03] VITALS: BMI 19.5
[2021-01-25] MEDS ORDERED: ACETAMINOPHEN 325 MG TABLET (FP) PO PRN ×2 (02:27)
[2021-01-25] MEDS ORDERED: IBUPROFEN 400 MG TABLET (FP) PO PRN (02:27)
[2021-01-25] MEDS ORDERED: ONDANSETRON *ODT* 4 MG TABLET SL PRN (02:27)
[2021-01-25] MEDS ORDERED: guaiFENesin 200 MG/10 ML 10 ML UNIT-DOSE CUPS PO PRN (02:27)
[2021-01-25] MEDS ORDERED: DICYCLOMINE HCL 10 MG CAPSULE PO PRN (02:27)
[2021-01-25] MEDS ORDERED: P-EPHED 60MG/TRIPROLIDI 2.5MG TABLET PO PRN (02:27)
[2021-01-25] MEDS ORDERED: BISMUTH SUBSALICYLATE 524 MG/30 ML UD PO PRN (02:27)
[2021-01-25] MEDS ORDERED: MENTHOL/PHENOL 1 EACH UD MM PRN (02:27)
[2021-01-25] MEDS ORDERED: MAG HYDROX/AL HYDROX/SIMETH 30 ML UNIT-DOSE CUP PO PRN (02:27)
[2021-01-25] MEDS ORDERED: NICOTINE POLACRILEX 2 MG GUM BUC PRN (02:27)
[2021-01-25] MEDS ORDERED: METHOCARBAMOL 500 MG TABLET PO PRN (02:27)
[2021-01-25] MEDS ORDERED: MAGNESIUM HYDROX 2400MG/30ML ORAL SUSPENSION 30 ML CUP PO PRN (02:27)
[2021-01-25] MEDS ORDERED: MAGNESIUM CITRATE 300 ML BOTTLE PO PRN (02:27)
[2021-01-25] MEDS ORDERED: PRENATAL VITAMINS W/ FOLIC ACID TABLET (FP) PO SCH (10:00)
[2021-01-25] MEDS: METOPROLOL TARTRATE 50 MG TABLET (FP) PO SCH ×2 (11:49→22:46)
[2021-01-25] MEDS: ASPIRIN COATED 81 MG TABLET.EC PO SCH (11:49)
[2021-01-25] MEDS: APIXABAN 5 MG TABLET PO SCH ×2 (11:49→22:44)
[2021-01-25] MEDS: HYDROCHLOROTHIAZIDE 25 MG TABLET (FP) PO SCH (11:49)
[2021-01-25] MEDS: MULTIVITAMINS (DAILY MVI) TABLET (FP) PO SCH (11:49)
[2021-01-25] MEDS: FOLIC ACID 1 MG TABLET (FP) PO SCH (11:49)
[2021-01-25] MEDS: ISOSORBIDE MONONITRATE 30 MG TAB.SR.24H (FP) PO SCH (11:49)
[2021-01-25] MEDS: AMMONIUM LACTATE 12% LOTION 225 GM BOTTLE TP SCH ×2 (11:49→22:45)
[2021-01-25] MEDS: SPIRONOLACTONE 25 MG TABLET PO SCH (11:49)
[2021-01-25] MEDS: BUDESONIDE/FORMETEROL FUMARATE 160/4.5 mcg INHALER IH SCH ×2 (11:50→22:44)
[2021-01-25] MEDS: DIGOXIN 0.125 MG TABLET (FP) PO SCH (11:50)
[2021-01-25] MEDS ORDERED: chlordiazePOXIDE HCL 25 MG CAPSULE PO PRN (13:22)
[2021-01-25] MEDS ORDERED: chlordiazePOXIDE HCL 25 MG CAPSULE PO ONE (13:27)
[2021-01-25] MEDS: chlordiazePOXIDE HCL 25 MG CAPSULE PO SCH ×2 (17:59→22:44)
[2021-01-25] MEDS: THIAMINE HCL 100 MG TABLET (FP) PO SCH (22:43)
[2021-01-25] MEDS: MELATONIN 5 MG TABLETS PO SCH (22:43)
[2021-01-25] MEDS: ATORVASTATIN CA 40 MG TABLET (FP) PO SCH (22:44)
[2021-01-26] MEDS: chlordiazePOXIDE HCL 25 MG CAPSULE PO SCH ×4 (05:48→22:03)
[2021-01-26] MEDS: METOPROLOL TARTRATE 50 MG TABLET (FP) PO SCH ×2 (11:02→22:02)
[2021-01-26] MEDS: HYDROCHLOROTHIAZIDE 25 MG TABLET (FP) PO SCH (11:02)
[2021-01-26] MEDS: MULTIVITAMINS (DAILY MVI) TABLET (FP) PO SCH (11:02)
[2021-01-26] MEDS: ISOSORBIDE MONONITRATE 30 MG TAB.SR.24H (FP) PO SCH (11:02)
[2021-01-26] MEDS: FOLIC ACID 1 MG TABLET (FP) PO SCH (11:02)
[2021-01-26] MEDS: SPIRONOLACTONE 25 MG TABLET PO SCH (11:02)
[2021-01-26] MEDS: ASPIRIN COATED 81 MG TABLET.EC PO SCH (11:03)
[2021-01-26] MEDS: DIGOXIN 0.125 MG TABLET (FP) PO SCH (11:04)
[2021-01-26] MEDS: AMMONIUM LACTATE 12% LOTION 225 GM BOTTLE TP SCH ×2 (11:04→22:03)
[2021-01-26] MEDS: APIXABAN 5 MG TABLET PO SCH ×2 (11:05→22:02)
[2021-01-26] MEDS: BUDESONIDE/FORMETEROL FUMARATE 160/4.5 mcg INHALER IH SCH ×2 (11:07→23:10)
[2021-01-26] MEDS: ATORVASTATIN CA 40 MG TABLET (FP) PO SCH (22:03)
[2021-01-26] MEDS: THIAMINE HCL 100 MG TABLET (FP) PO SCH (22:03)
[2021-01-26] MEDS: MELATONIN 5 MG TABLETS PO SCH (22:03)
[2021-01-27] MEDS ORDERED: chlordiazePOXIDE HCL 10 MG CAPSULE PO PRN
[2021-01-27] MEDS: chlordiazePOXIDE HCL 10 MG CAPSULE PO SCH ×4 (06:13→22:39)
[2021-01-27] MEDS: SPIRONOLACTONE 25 MG TABLET PO SCH (11:09)
[2021-01-27] MEDS: METOPROLOL TARTRATE 50 MG TABLET (FP) PO SCH ×2 (11:10→22:38)
[2021-01-27] MEDS: HYDROCHLOROTHIAZIDE 25 MG TABLET (FP) PO SCH (11:10)
[2021-01-27] MEDS: APIXABAN 5 MG TABLET PO SCH ×2 (11:10→22:38)
[2021-01-27] MEDS: FOLIC ACID 1 MG TABLET (FP) PO SCH (11:11)
[2021-01-27] MEDS: ISOSORBIDE MONONITRATE 30 MG TAB.SR.24H (FP) PO SCH (11:11)
[2021-01-27] MEDS: MULTIVITAMINS (DAILY MVI) TABLET (FP) PO SCH (11:12)
[2021-01-27] MEDS: ASPIRIN COATED 81 MG TABLET.EC PO SCH (11:13)
[2021-01-27] MEDS: DIGOXIN 0.125 MG TABLET (FP) PO SCH (11:13)
[2021-01-27] MEDS: BUDESONIDE/FORMETEROL FUMARATE 160/4.5 mcg INHALER IH SCH ×2 (11:16→22:40)
[2021-01-27] MEDS: AMMONIUM LACTATE 12% LOTION 225 GM BOTTLE TP SCH ×2 (11:17→22:40)
[2021-01-27] MEDS: MELATONIN 5 MG TABLETS PO SCH (22:38)
[2021-01-27] MEDS: THIAMINE HCL 100 MG TABLET (FP) PO SCH (22:38)
[2021-01-27] MEDS: ATORVASTATIN CA 40 MG TABLET (FP) PO SCH (22:38)
[2021-01-28] MEDS: chlordiazePOXIDE HCL 10 MG CAPSULE PO SCH ×2 (06:10→17:41)
[2021-01-28] MEDS: METOPROLOL TARTRATE 50 MG TABLET (FP) PO SCH ×2 (10:44→21:34)
[2021-01-28] MEDS: APIXABAN 5 MG TABLET PO SCH ×2 (10:44→21:34)
[2021-01-28] MEDS: SPIRONOLACTONE 25 MG TABLET PO SCH (10:44)
[2021-01-28] MEDS: ASPIRIN COATED 81 MG TABLET.EC PO SCH (10:44)
[2021-01-28] MEDS: HYDROCHLOROTHIAZIDE 25 MG TABLET (FP) PO SCH (10:44)
[2021-01-28] MEDS: FOLIC ACID 1 MG TABLET (FP) PO SCH (10:45)
[2021-01-28] MEDS: BUDESONIDE/FORMETEROL FUMARATE 160/4.5 mcg INHALER IH SCH ×2 (10:45→21:39)
[2021-01-28] MEDS: AMMONIUM LACTATE 12% LOTION 225 GM BOTTLE TP SCH ×2 (10:46→21:38)
[2021-01-28] MEDS: MULTIVITAMINS (DAILY MVI) TABLET (FP) PO SCH (10:46)
[2021-01-28] MEDS: ISOSORBIDE MONONITRATE 30 MG TAB.SR.24H (FP) PO SCH (10:46)
[2021-01-28] MEDS: DIGOXIN 0.125 MG TABLET (FP) PO SCH (10:46)
[2021-01-28] MEDS: MELATONIN 5 MG TABLETS PO SCH (21:33)
[2021-01-28] MEDS: ATORVASTATIN CA 40 MG TABLET (FP) PO SCH (21:34)
[2021-01-28] MEDS: THIAMINE HCL 100 MG TABLET (FP) PO SCH (21:34)
[2021-01-29] MEDS ORDERED: chlordiazePOXIDE HCL 10 MG CAPSULE PO ONE (05:00)
[2021-01-29 06:05] LABS: SARS-CoV-2 NAA Not Detected (Not Detected)
[2021-01-29] MEDS: SPIRONOLACTONE 25 MG TABLET PO SCH (10:35)
[2021-01-29] MEDS: HYDROCHLOROTHIAZIDE 25 MG TABLET (FP) PO SCH (10:35)
[2021-01-29] MEDS: METOPROLOL TARTRATE 50 MG TABLET (FP) PO SCH ×2 (10:35→22:18)
[2021-01-29] MEDS: APIXABAN 5 MG TABLET PO SCH ×2 (10:35→22:17)
[2021-01-29] MEDS: ASPIRIN COATED 81 MG TABLET.EC PO SCH (10:35)
[2021-01-29] MEDS: DIGOXIN 0.125 MG TABLET (FP) PO SCH (10:36)
[2021-01-29] MEDS: ISOSORBIDE MONONITRATE 30 MG TAB.SR.24H (FP) PO SCH (10:38)
[2021-01-29] MEDS: FOLIC ACID 1 MG TABLET (FP) PO SCH (10:38)
[2021-01-29] MEDS: AMMONIUM LACTATE 12% LOTION 225 GM BOTTLE TP SCH ×2 (10:39→22:18)
[2021-01-29] MEDS: MULTIVITAMINS (DAILY MVI) TABLET (FP) PO SCH (10:39)
[2021-01-29] MEDS: BUDESONIDE/FORMETEROL FUMARATE 160/4.5 mcg INHALER IH SCH ×2 (10:39→22:19)
[2021-01-29] MEDS: THIAMINE HCL 100 MG TABLET (FP) PO SCH (22:17)
[2021-01-29] MEDS: ATORVASTATIN CA 40 MG TABLET (FP) PO SCH (22:18)
[2021-01-29] MEDS: MELATONIN 5 MG TABLETS PO SCH (22:18)
[2021-01-30 06:40] VITALS: TEMP 97.1
[2021-01-30] MEDS: BUDESONIDE/FORMETEROL FUMARATE 160/4.5 mcg INHALER IH SCH (09:51)
[2021-01-30] MEDS: HYDROCHLOROTHIAZIDE 25 MG TABLET (FP) PO SCH ×2 (09:52→09:56)
[2021-01-30] MEDS: ASPIRIN COATED 81 MG TABLET.EC PO SCH (09:52)
[2021-01-30] MEDS: MULTIVITAMINS (DAILY MVI) TABLET (FP) PO SCH (09:52)
[2021-01-30] MEDS: FOLIC ACID 1 MG TABLET (FP) PO SCH (09:52)
[2021-01-30] MEDS: APIXABAN 5 MG TABLET PO SCH (09:52)
[2021-01-30] MEDS: ISOSORBIDE MONONITRATE 30 MG TAB.SR.24H (FP) PO SCH (09:52)
[2021-01-30] MEDS: DIGOXIN 0.125 MG TABLET (FP) PO SCH (09:53)
[2021-01-30] MEDS: METOPROLOL TARTRATE 50 MG TABLET (FP) PO SCH (09:53)
[2021-01-30] MEDS: AMMONIUM LACTATE 12% LOTION 225 GM BOTTLE TP SCH (09:53)
[2021-01-30] MEDS: SPIRONOLACTONE 25 MG TABLET PO SCH (11:57)
[2021-01-30 12:02] VITALS: BP 130/69; PULSE 90
== END 2021-01-30 15:00 | disposition home or self-care (01) | DRG 895 ==
LOC: YASAS 21:42 → Y6N 01-25 09:26 → Y5N 01-29 14:27
PROVIDERS: ADMIT Allergy & Immunology; ATTEND Allergy & Immunology
PROC: HZ2ZZZZ Detoxification Services for Substance Abuse Treatment (ICD-10-PCS; 2021-01-25)
PROC: HZ42ZZZ Group Counseling for Substance Abuse Treatment, Cognitive-Behavioral (ICD-10-PCS; principal; 2021-01-29)
DX: F10.20 Alcohol dependence, uncomplicated (principal); I69.854 Hemiplegia and hemiparesis following other cerebrovascular disease affecting left non-dominant side; F17.210 Nicotine dependence, cigarettes, uncomplicated; J44.9 Chronic obstructive pulmonary disease, unspecified; I25.10 Atherosclerotic heart disease of native coronary artery without angina pectoris; I10 Essential (primary) hypertension; I48.91 Unspecified atrial fibrillation; Z98.61 Coronary angioplasty status; Z86.711 Personal history of pulmonary embolism; Z79.01 Long term (current) use of anticoagulants; Z91.81 History of falling; Z99.89 Dependence on other enabling machines and devices; Z86.79 Personal history of other diseases of the circulatory system
CPT/HCPCS: 36415; 71046-TC-FY; 80053; 80162; 81003; 82550; 82553; 84484; 85025; 86780; 87086; 93005; 93010; 99283-25; C9803; U0003; U0005